=== PATIENT | female | born 1965 | race Hispanic/Latino ===

== ENCOUNTER 2022-09-03 00:20 | Emergency (ER) | payer OTHER, SELFPAY ==
--- OUTSIDE RECORDS SUMMARY | 2022-09-03 00:38 | XMS REPORT | Continuity of Care Document ---
:1965 Author Organization [facility] t Address [address] [facility]. [address] [place] [address] Care Team Providers Name Role Phone JOSE Wilson [facility] Primary Care P hysician Unavailable SOUMYA HA Attending Clinician Unavailable MICHAEL MUELLER Attending Clinician Unavailable Michael Riley Attending Clinician Evaristo Gabriel MD Attending Clinician CHERYL GIORDANO Attending Clinician Unavailable Cheryl Villanueva Attending Clinician [phone] EVARISTO GABRIEL Attending Clinician Unavailable Doctor Unassigned, [place] Attending Clinician Unavailable CHARLOTTE MURPHY Attending Clinician Unavailable Karl RAMIREZ, Mitra Campos Attending Clinician Charlotte Murphy MD Attending Clinician REBEKA AG Attending Clinician Unavailable Anni Simon Attending Clinician Soumya Stanton Attending Clinician MICHAEL MUELLER Admitting Clinician Unavailable CHARLOTTE MURPHY Admitting Clinician Unavailable Charlotte Murphy MD Admitting Clinician Payers Payer Name Policy Type Policy Number Effective Date Expiration Date S [employer] COMMERCIAL [id number] 2021 NON-CONTRACT 00:00:00 GENERIC MEDICAID TA PENDING 2021 PENDING 00:00:00 Problems Condition Condition Condition Status Onset Resolution Last Treating Co mments Source Name Details Category Date Date Treatment Clinician Date Dyslipidem Dyslipidem Disease Active 2020-05 U nivers ia ia 2-18 ity of 00:00: [place] [facility] Left arm Left arm Disease Active 2020-05 Unive rs pain pain 2-18 ity of 00:00: [place] [facility] Atypical Atypical Disease Active 2020-05 Unive rs chest pain chest pain 2-17 it y of 00:00: [place] [address] Medical Branch BMI BMI Disease Active Univers 50.0-59.9, 50.0-59.9, 7-22 it y of adult adult 00:00: [place] [address] Medical Branch Encounter Encounter Disease Active Uni vers for for 7 ity of surveillan surve[place] of [facility] contracept contracept Br anch jacqueline, jacqueline, unspecifie unspecifie d d contracept contracept alycia alycia Well woman Well woman Disease Active U nivers exam exam - ity of 00:00: [place] [facility] Essential Essential Disease Active Uni vers hypertensi hypertensi 9-28 it y of on on 00:00: [place] [facility] Breast Breast Disease Active Univers tenderness tenderness 2-02 it y [facility] female [facility] Generalize Generalize Disease Active U nivers d anxiety d anxiety 2-02 ity of disorder disorder 00:00: [place] [address] Medical Branch Encounter Encounter Disease Active Overview: Univers for for 07-07 Formattin ity of routine routine 00:00: g of this [place] [facility] gynecologi 00 note Me dical yady yady might be Branch examinatio examinatio different n n from the original. ICD10 Diagnosis [employer] Allergies, Adverse Reactions, Alerts Allergy Allergy Status Severity Reaction(s) Onset Inactive Treating Comm ents Source Name Type Date Date Clinician Amoxicil Propensi Active nikki-Pot ty to 8-11 Clavulan adverse 00:00: ate - reaction 00 Oral to drug Demetrio Propensi Active 2016-05 Inhibito ty to 1-22 rs adverse 00:00: reaction 00 to drug NO KNOWN Drug Active Univers ALLERGIE Class 1-22 ity of S 00:00: [place] 00 Medical Branch No Known Propensi Active Univer s Allergie ty to 06-01 ity of s adverse 00:00: [place] reaction 00 Medical s Branch Social History Social Habit Start Date Stop Date Quantity Comments Source Exposure to 2021-09-14 2021-09-24 Not sure [facility] SARS-CoV-2 00:00:00 22:26:00 [facility] (event) Branch Alcohol intake 2021-09-24 2021-09-24 Current University of 00:00:00 00:00:00 non-drinker of [facility] alcohol Branch (finding) Tobacco use and 2012-07-07 2012-07-07 Never used Universit y of exposure 00:00:00 00:00:00 [facility] Sex [birth year] Universit y of 00:00:00 00:00:00 [facility] Smoking Status Start Date Stop Date Source Never smoker [facility] Medications Ordered Filled Start Stop Current Ordering Indication Dosage Frequency Signature Comments Components Source Medication Medication Date Date Medication? Clinician (SIG) Name Name TAKE No TABLET BID 9-22 NEEDED 00:00: 00 TAKE 1 2021-0 No TABLET BID 9-22 NEEDED 00:00: 00 TAKE 1 2021-0 No 600 TABLET BID 8-17 NEEDED 00:00: 00 TAKE 1 2021-0 No 600 TABLET BID 8-17 NEEDED 00:00: 00 TAKE 1 2021-0 No 600 TABLET BID 8-17 NEEDED 00:00: 00 Dose 2021-0 No Unknown 8-11 00:00: 00 Dose 2021-0 No Unknown 8-11 00:00: 00 Dose 2-0 No Unknown 8-11 00:00: 00 Imodium A-D 2021-0 No mg 2 mg tablet 11-29 00:00: 00 Dose 2-0 No Unknown 7 00:00: 00 Dose 2-0 No Unknown 7 00:00: 00 Imodium A-D 2021-0 No mg 2 mg tablet 11-29 00:00: 00 Dose 2-0 No Unknown 11-29 00:00: 00 Dose 2-0 No Unknown 11-29 00:00: 00 Imodium A-D 2-0 No mg 2 mg tablet 11-29 00:00: 00 Dose 2-0 No Unknown 11-29 00:00: 00 Dose 2-0 No Unknown 11-29 00:00: 00 Imodium A-D 2-0 No mg 2 mg tablet 11-29 00:00: 00 Dose 2-0 No Unknown 11-29 00:00: 00 Dose 2-0 No Unknown 11-29 00:00: 00 Ciprodex 2-0 No 4% 0.3 %-0.1 % 11-25 ear 00:00: drops,suspe 00 nsion clotrimazol 2-0 No 1% e-betametha 11-25 sone 1 00:00: %-0.05 % 00 topical cream Ciprodex 2-0 No 4% 0.3 %-0.1 % 11-25 ear 00:00: drops,suspe 00 nsion clotrimazol 2-0 No 1% e-betametha 11-25 sone 1 00:00: %-0.05 % 00 topical cream Ciprodex 2-0 No 4% 0.3 %-0.1 % 11-25 ear 00:00: drops,suspe 00 nsion clotrimazol 2-0 No 1% e-betametha 18 sone 1 00:00: %-0.05 % 00 topical cream Ciprodex 2-0 No 4% 0.3 %-0.1 % 11-25 ear 00:00: drops,suspe 00 nsion clotrimazol 2-0 No 1% e-betametha 18 sone 1 00:00: %-0.05 % 00 topical cream Ciprodex 2-0 No 4% 0.3 %-0.1 % 18 ear 00:00: drops,suspe 00 nsion clotrimazol 2-0 No 1% e-betametha 18 sone 1 00:00: %-0.05 % 00 topical cream TAKE 1 0 No [id number] TABLET 7-17 TWICE DAILY 00:00: WITH FOOD. 00 TAKE 1 2021-0 No [id number] TABLET 7-17 TWICE DAILY 00:00: WITH FOOD. 00 TAKE 1 2-0 No [id number] TABLET 7-17 TWICE DAILY 00:00: WITH FOOD. 00 TAKE 1 2021-0 No [id number] TABLET 7-17 TWICE DAILY 00:00: WITH FOOD. 00 TAKE 1 2021-0 No [id number] TABLET 7-17 TWICE DAILY 00:00: WITH FOOD. 00 TAKE 1 2-0 No 600 TABLET BID 7-05 NEEDED 00:00: 00 TAKE 1 2-0 No 600 TABLET BID 7-05 NEEDED 00:00: 00 TAKE 1 2-0 No 600 TABLET BID 7-05 NEEDED 00:00: 00 TAKE 1 2-0 No 600 TABLET BID 7-05 NEEDED 00:00: 00 TAKE 1 2-0 No 600 TABLET BID 7-05 NEEDED 00:00: 00 TAKE 1 2-0 No 600 TABLET BID 7-05 NEEDED 00:00: 00 TAKE 1 2-0 No 600 TABLET BID 7-05 NEEDED 00:00: 00 TAKE 1 2021-0 No 600 TABLET BID 7-05 NEEDED 00:00: 00 TAKE 1 2-0 No 600 TABLET BID 7-05 NEEDED 00:00: 00 TAKE 1 2-0 No 600 TABLET BID 7-05 NEEDED 00:00: 00 TAKE 1 2-0 No 600 TABLET BID 7-05 NEEDED 00:00: 00 TAKE 1 2-0 No 600 TABLET BID 7-05 NEEDED 00:00: 00 proMETHazin 2021- No 25mg 25 mg, Uni vers e 09-25 Intramuscu ity of (PHENERGAN) 09:00: 08:07 lar, ONCE, [place] injection 00 :00 1 dose, On Medi yady 25 mg Wed Branch 09/25/21 at 0400, ROZ hyoscyamine 2021- No .125mg 0.125 mg, Univers sulfate 09-25 Sublingual ity o f (LEVSIN/SL) 09:00: 08:07 , ONCE [place] as sublingual 00 :00 NOW, 1 Medical tablet dose, On Branch 0.125 mg 09/25/21 at 0400, Routine maalox:diph 2021- No 15mL 15 mL, Uni vers enhydrAMINE 5-18 -18 Oral, ity of :lidocaine 08:15: 07:45 ONCE, 1 [place] 2 % viscous 00 :00 dose, On Medi yady 1:1:1 Wed Branch (FIRST-[facility]OUT 09/25/21 at [facility]) 0315, oral Routine suspension 15 mL metoclopram 2021- No 10mg 10 mg, Uni vers sacha HCl -25 09-18 Slow IV ity of (REGLAN) 07:30: 06:35 Push, [place] injection 00 :00 ONCE, 1 Medical 10 mg dose, On Branch 09/25/21 at 0230, ROZ iopamidol 2021- No [id number] 120mL 120 mL, Univers (ISOVUE 5-25 09-18 Intravenou ity o f 370-500 mL) 07:15: 05:59 s, ONCE, 1 [place] injection 00 :00 dose, On Medica l 120 mL Wed Branch 09/25/21 at 0215, Routine FENTanyl PF No 50ug 50 mcg, Un [place] (SUBLIMAZE 09-25-18 Slow IV ity o f (PF)) 05:15: 04:51 Push, [place] injection 00 :00 ONCE, 1 Medical 50 mcg dose, On Branch 09/25/21 at 0015, STAT ondansetron 2021- No 4mg 4 mg, Slow Univers (ZOFRAN -25 09-18 IV Push, ity of (PF)) 05:15: 04:51 ONCE, 1 [place] injection 4 00 :00 dose, On Medi yady mg Wed Branch 09/25/21 at 0015, ROZ NaCl 0.9% 2021- No 1000mL at 999 Uni vers (NS) bolus -18 -18 mL/hr, ity of infusion 05:15: 08:50 1,000 mL, [place] 1,000 mL 00 :00 IV Medical Infusion, Branch ONCE, 1 dose, On 09/25/21 at 0015, ROZ dicyclomine 0 Yes [id number] 10mg Take 1 Univers 10 mg 5-18 capsule by ity of capsule 00:00: mouth 4 [place] 00 (four) Medical times Branch daily. proMETHazin 2022-0 Yes [id number] 25mg Take 1 Univers e 25 mg 5-18 tablet by ity of tablet 00:00: mouth [place] 00 every 6 Medical (six) Branch hours as needed for Nausea and Vomiting (N/V). traMADoL 50 2-0 2- No [id number] 50mg Take 1 Uni vers mg tablet 5-18 05-26 tablet by ity of 00:00: 04:59 mouth [place] 00 :00 every 6 Medical (six) Branch hours as needed for Pain (scale 7-10) for up to 7 days. Indication s: acute pain duloxetine 2-0 No 1mg 30 mg 5-14 capsule,del 00:00: ayed 00 release omeprazole 2022-0 No 1mg 40 mg 5-14 capsule,del 00:00: ayed 00 release duloxetine 2022-0 No 1mg 30 mg 5-14 capsule,del 00:00: ayed 00 release omeprazole 2022-0 No 1mg 40 mg 5-14 capsule,del 00:00: ayed 00 release duloxetine 2022-0 No 1mg 30 mg 5-14 capsule,del 00:00: ayed 00 release omeprazole 2022-0 No 1mg 40 mg 5-14 capsule,del 00:00: ayed 00 release duloxetine 2022-0 No 1mg 30 mg 5-14 capsule,del 00:00: ayed 00 release omeprazole 2022-0 No 1mg 40 mg 5-14 capsule,del 00:00: ayed 00 release duloxetine 2022-0 No 1mg 30 mg 5-14 capsule,del 00:00: ayed 00 release omeprazole 2022-0 No 1mg 40 mg 5-14 capsule,del 00:00: ayed 00 release duloxetine 2022-0 No 1mg 30 mg 5-14 capsule,del 00:00: ayed 00 release omeprazole 2022-0 No 1mg 40 mg 5-14 capsule,del 00:00: ayed 00 release metoprolol 2022-0 Yes [id number] 50mg Take 1 U nivers tartrate 50 4-01 tablet by ity of mg tablet 00:00: mouth 2 [place] 00 (two) Medical times Branch daily. metoprolol 2022-0 Yes [id number] 50mg Take 1 U nivers tartrate 50 4-01 tablet by ity of mg tablet 00:00: mouth 2 [place] 00 (two) Medical times Branch daily. Dose 2-0 No Unknown 3- 00:00: 00 Dose 2-0 No Unknown 3- 00:00: 00 Dose 2-0 No Unknown 3 00:00: 00 Dose 2-0 No Unknown 3- 00:00: 00 Dose 2-0 No Unknown 3- 00:00: 00 Dose 2-0 No Unknown 3- 00:00: 00 metoprolol 2-0 No mg tartrate 50 3-29 mg tablet 00:00: 00 Dose 2-0 No Unknown 3- 00:00: 00 Dose 2-0 No Unknown 3- 00:00: 00 Dose 2-0 No Unknown 3- 00:00: 00 Dose 2-0 No Unknown 3- 00:00: 00 Dose 2-0 No Unknown 3- 00:00: 00 Dose 2-0 No Unknown 3- 00:00: 00 Dose 2-0 No Unknown 3- 00:00: 00 Dose 2-0 No Unknown 3- 00:00: 00 Dose 2-0 No Unknown 3- 00:00: 00 metoprolol 2-0 No mg tartrate 50 3-29 mg tablet 00:00: 00 Dose 2-0 No Unknown 3- 00:00: 00 Dose 2-0 No Unknown 3- 00:00: 00 Dose 2-0 No Unknown 3- 00:00: 00 Dose 2-0 No Unknown 3- 00:00: 00 Dose 2-0 No Unknown 3- 00:00: 00 Dose 2-0 No Unknown 3- 00:00: 00 Dose 2-0 No Unknown 3- 00:00: 00 Dose 2-0 No Unknown 3- 00:00: 00 Dose 2-0 No Unknown 3- 00:00: 00 metoprolol 2-0 No mg tartrate 50 3-29 mg tablet 00:00: 00 Dose 2-0 No Unknown 3- 00:00: 00 Dose 2-0 No Unknown 3-29 00:00: 00 Dose 2-0 No Unknown 3-29 00:00: 00 Dose 2-0 No Unknown 3-29 00:00: 00 Dose 2-0 No Unknown 3- 00:00: 00 Dose 2-0 No Unknown 3- 00:00: 00 Dose 2-0 No Unknown 3- 00:00: 00 Dose 2-0 No Unknown 3- 00:00: 00 Dose 2-0 No Unknown 3- 00:00: 00 metoprolol 2-0 No mg tartrate 50 3-29 mg tablet 00:00: 00 Dose 2-0 No Unknown 3- 00:00: 00 Dose 2-0 No Unknown 3- 00:00: 00 Dose 2-0 No Unknown 3- 00:00: 00 Dose 2021-0 No Unknown 3- 00:00: 00 Dose 2-0 No Unknown 3 00:00: 00 Dose 2-0 No Unknown 3 00:00: 00 Dose 2-0 No Unknown 3 00:00: 00 Dose 2-0 No Unknown 3 00:00: 00 Dose 2-0 No Unknown 3 00:00: 00 metoprolol 2-0 No mg tartrate 50 3-29 mg tablet 00:00: 00 Dose 2-0 No Unknown 3- 00:00: 00 Dose 2-0 No Unknown 3- 00:00: 00 Dose 2-0 No Unknown 3- 00:00: 00 Dose 2-0 No Unknown 3- 00:00: 00 Dose 2-0 No Unknown 3- 00:00: 00 Dose 2-0 No Unknown 3-29 00:00: 00 Dose 2-0 No Unknown 3-29 00:00: 00 Dose 2-0 No Unknown 3-29 00:00: 00 Dose 2-0 No Unknown 3-29 00:00: 00 metoprolol 2-0 No mg tartrate 50 3-29 mg tablet 00:00: 00 Dose 2-0 No Unknown 3-29 00:00: 00 Dose 2-0 No Unknown 3-29 00:00: 00 Dose 2-0 No Unknown 3-29 00:00: 00 metoprolol 2-0 2- No 50mg Take 50 mg Univers tartrate 50 06-10 by mouth 2 i ty of mg tablet 15:26: 00:00 (two) [place] 10 :00 times Medical daily. Branch Take 1 tablet in the morning and one half in the evening ALBUTEROL 2021-0 Yes Inhale. Unive rs SULFATE 1-31 ity of INHALE 15:09: [address] Branch acetaminoph Yes Take by Uni vers en (TYLENOL 1-31 mouth. ity of ORAL) 15:09: [address] ALBUTEROL Yes Inhale. Unive rs SULFATE 1-31 ity of INHALE 15:09: [address] Branch acetaminoph Yes Take by Uni vers en (TYLENOL 1-31 mouth. ity of ORAL) 15:09: [address] ALBUTEROL Yes Inhale. Unive rs SULFATE 1-31 ity of INHALE 15:09: [address] acetaminoph Yes Take by Uni vers en (TYLENOL 1-31 mouth. ity of ORAL) 15:09: [address] ALBUTEROL 0 Yes Inhale. Unive rs SULFATE 1-31 ity of INHALE 15:09: [address] acetaminoph Yes Take by Uni vers en (TYLENOL 1-31 mouth. ity of ORAL) 15:09: [address] omeprazole 2021-0 Yes 40mg Take 40 mg U nivers 10 mg 1-31 by mouth ity of capsule 15:06: daily. [address] omeprazole 2021-0 Yes 40mg Take 40 mg U nivers 10 mg 1-31 by mouth ity of capsule 15:06: daily. [address] omeprazole 2021-0 Yes 40mg Take 40 mg U nivers 10 mg 1-31 by mouth ity of capsule 15:06: daily. [address] omeprazole 2021-0 Yes 40mg Take 40 mg U nivers 10 mg 1-31 by mouth ity of capsule 15:06: daily. [address] metoprolol 2021-0 Yes [id number] 50mg Take 1 U nivers tartrate 50 1-31 tablet by ity of mg tablet 00:00: mouth 2 [place] 00 (two) Medical times Branch daily. metoprolol 2021-0 Yes [id number] 50mg Take 1 U nivers tartrate 50 1-31 tablet by ity of mg tablet 00:00: mouth 2 [place] 00 (two) Medical times Branch daily. metoprolol 2021-0 2021- No [id number] 50mg Take 1 Univers tartrate 50 1-31 - tablet by it y of mg tablet 00:00: 00:00 mouth 2 [place] :[place] (two) Medical times Branch daily. oxybutynin 2-0 No 1mg chloride 5 1-24 mg tablet 00:00: 00 Dose 2-0 No Unknown 1-24 00:00: 00 oxybutynin 2-0 No 1mg chloride 5 1-24 mg tablet 00:00: 00 Dose 2-0 No Unknown 1-24 00:00: 00 oxybutynin 2-0 No 1mg chloride 5 1-24 mg tablet 00:00: 00 Dose 2-0 No Unknown 1-24 00:00: 00 oxybutynin 2-0 No 1mg chloride 5 1-24 mg tablet 00:00: 00 Dose 2-0 No Unknown 1-24 00:00: 00 oxybutynin 2-0 No 1mg chloride 5 1-24 mg tablet 00:00: 00 Dose 2-0 No Unknown 1-24 00:00: 00 oxybutynin 2-0 No 1mg chloride 5 1-24 mg tablet 00:00: 00 Dose 2-0 No Unknown 1-24 00:00: 00 metoprolol 2020-1 No mg tartrate 50 0-29 mg tablet 00:00: 00 cyclobenzap 2020-1 No 1mg rine 7.5 mg 0-29 tablet 00:00: 00 TAKE 1 2020-1 No TABLET BID 0-29 NEEDED 00:00: 00 metoprolol 2020-1 No mg tartrate 50 0-29 mg tablet 00:00: 00 cyclobenzap 2020-1 No 1mg rine 7.5 mg 0-29 tablet 00:00: 00 ibuprofen 2020-1 No 1mg 800 mg 0-29 tablet 00:00: 00 metoprolol 2020-1 No mg tartrate 50 0-29 mg tablet 00:00: 00 cyclobenzap 2020-1 No 1mg rine 7.5 mg 0-29 tablet 00:00: 00 TAKE 1 2020-1 No TABLET BID 0-29 NEEDED 00:00: 00 metoprolol 1-1 No mg tartrate 50 0-29 mg tablet 00:00: 00 cyclobenzap 1-1 No 1mg rine 7.5 mg 0-29 tablet 00:00: 00 ibuprofen 2021-1 No 1mg 800 mg 0-29 tablet 00:00: 00 metoprolol 2021-1 No mg tartrate 50 0-29 mg tablet 00:00: 00 cyclobenzap 1-1 No 1mg rine 7.5 mg 0-29 tablet 00:00: 00 ibuprofen 2021-1 No 1mg 800 mg 0-29 tablet 00:00: 00 metoprolol 1-1 No mg tartrate 50 0-29 mg tablet 00:00: 00 cyclobenzap 1-1 No 1mg rine 7.5 mg 0-29 tablet 00:00: 00 ibuprofen 1-1 No 1mg 800 mg 0-29 tablet 00:00: 00 Dose 2021-0 No Unknown 01-31 00:00: 00 Dose 2021-0 No Unknown 01-31 00:00: 00 Dose 2021-0 No Unknown 01-31 00:00: 00 Dose 2021-0 No Unknown 01-31 00:00: 00 Dose 2021-0 No Unknown 01-31 00:00: 00 Dose 2021-0 No Unknown 01-31 00:00: 00 ondansetron 1-0 No 1mg 4 mg 01-10 disintegrat 00:00: ing tablet 00 ondansetron 1-0 No 1mg 4 mg 01-10 disintegrat 00:00: ing tablet Dexilant 60 1-0 No 1mg mg capsule, 01-10 delayed 00:00: release 00 Dexilant 60 1-0 No 1mg mg capsule, 01-10 delayed 00:00: release 00 ondansetron 1-0 No 1mg 4 mg 01-10 disintegrat 00:00: ing tablet Dexilant 60 1-0 No 1mg mg capsule, 01-10 delayed 00:00: release 00 ondansetron 1-0 No 1mg 4 mg 01-10 disintegrat 00:00: ing tablet Dexilant 60 1-0 No 1mg mg capsule, 01-10 delayed 00:00: release 00 ondansetron 1-0 No 1mg 4 mg 01-10 disintegrat 00:00: ing tablet 00 Dexilant 60 1-0 No 1mg mg capsule, 01-10 delayed 00:00: release ondansetron 1-0 No 1mg 4 mg 01-10 disintegrat 00:00: ing tablet 00 Dexilant 60 1-0 No 1mg mg capsule, 01-10 delayed 00:00: release 00 Bromfed DM 2021-0 No 10mg/5 2 mg-30 8-16 mL mg-10 mg/5 00:00: mL oral 00 syrup Bromfed DM 2021-0 No 10mg/5 2 mg-30 8-16 mL mg-10 mg/5 00:00: mL oral 00 syrup Dose 1-0 No Unknown 8-16 00:00: 00 Bromfed DM 2021-0 No 10mg/5 2 mg-30 8-16 mL mg-10 mg/5 00:00: mL oral 00 syrup Bromfed DM 2021-0 No 10mg/5 2 mg-30 8-16 mL mg-10 mg/5 00:00: mL oral 00 syrup Bromfed DM 2021-0 No 10mg/5 2 mg-30 8-16 mL mg-10 mg/5 00:00: mL oral 00 syrup ondansetron 1-0 No 1mg 4 mg 7-14 disintegrat 00:00: ing tablet 00 ondansetron 1-0 No 1mg 4 mg 7-14 disintegrat 00:00: ing tablet 00 ondansetron 1-0 No 1mg 4 mg 7-14 disintegrat 00:00: ing tablet 00 ondansetron 1-0 No 1mg 4 mg 7-14 disintegrat 00:00: ing tablet 00 ondansetron 1-0 No 1mg 4 mg 7-14 disintegrat 00:00: ing tablet 00 ondansetron 1-0 No 1mg 4 mg 7-14 disintegrat 00:00: ing tablet 00 metoprolol 2021-0 No mg tartrate 50 6-22 mg tablet 00:00: 00 metoprolol 2021-0 No mg tartrate 50 6-22 mg tablet 00:00: 00 metoprolol 2021-0 No mg tartrate 50 6-22 mg tablet 00:00: 00 metoprolol 2021-0 No mg tartrate 50 6-22 mg tablet 00:00: 00 metoprolol 2021-0 No mg tartrate 50 6-22 mg tablet 00:00: 00 metoprolol 2021-0 No mg tartrate 50 6-22 mg tablet 00:00: 00 metoprolol 2021-0 No mg tartrate 50 5-25 mg tablet 00:00: 00 metoprolol 2021-0 No mg tartrate 50 5-25 mg tablet 00:00: 00 metoprolol 2021-0 No mg tartrate 50 5-25 mg tablet 00:00: 00 metoprolol 2021-0 No mg tartrate 50 5-25 mg tablet 00:00: 00 metoprolol 2021-0 No mg tartrate 50 5-25 mg tablet 00:00: 00 metoprolol 2021-0 No mg tartrate 50 5-25 mg tablet 00:00: 00 metoprolol 2021-0 No mg tartrate 50 3-24 mg tablet 00:00: 00 Dexilant 60 2021-0 No 1mg mg capsule, 3-24 delayed 00:00: release 00 metoprolol 2021-0 No mg tartrate 50 3-24 mg tablet 00:00: 00 Dexilant 60 2021-0 No 1mg mg capsule, 3-24 delayed 00:00: release 00 metoprolol 2021-0 No mg tartrate 50 3-24 mg tablet 00:00: 00 Dexilant 60 2021-0 No 1mg mg capsule, 3-24 delayed 00:00: release 00 metoprolol 2021-0 No mg tartrate 50 3-24 mg tablet 00:00: 00 Dexilant 60 2021-0 No 1mg mg capsule, 3-24 delayed 00:00: release 00 metoprolol 2021-0 No mg tartrate 50 3-24 mg tablet 00:00: 00 Dexilant 60 2021-0 No 1mg mg capsule, 3-24 delayed 00:00: release 00 metoprolol 2021-0 No mg tartrate 50 3-24 mg tablet 00:00: 00 Dexilant 60 2021-0 No 1mg mg capsule, 3-24 delayed 00:00: release 00 metoprolol 2021-0 No mg tartrate 50 2-18 mg tablet 00:00: 00 metoprolol 2021-0 No mg tartrate 50 2-18 mg tablet 00:00: 00 dicyclomine 2021-0 No 1mg 20 mg 2-18 tablet 00:00: 00 omeprazole 2021-0 No 1mg 40 mg 2-18 capsule,del 00:00: ayed 00 release metoprolol 2021-0 No mg tartrate 50 2-18 mg tablet 00:00: 00 metoprolol 2021-0 No mg tartrate 50 2-18 mg tablet 00:00: 00 dicyclomine 2021-0 No 1mg 20 mg 2-18 tablet 00:00: 00 omeprazole 2021-0 No 1mg 40 mg 2-18 capsule,del 00:00: ayed 00 release metoprolol 2021-0 No mg tartrate 50 2-18 mg tablet 00:00: 00 metoprolol 2021-0 No mg tartrate 50 2-18 mg tablet 00:00: 00 dicyclomine 2021-0 No 1mg 20 mg 2-18 tablet 00:00: 00 omeprazole 2021-0 No 1mg 40 mg 2-18 capsule,del 00:00: ayed 00 release metoprolol 2021-0 No mg tartrate 50 2-18 mg tablet 00:00: 00 metoprolol 2021-0 No mg tartrate 50 2-18 mg tablet 00:00: 00 dicyclomine 2021-0 No 1mg 20 mg 2-18 tablet 00:00: 00 omeprazole 2021-0 No 1mg 40 mg 2-18 capsule,del 00:00: ayed 00 release metoprolol 2021-0 No mg tartrate 50 2-18 mg tablet 00:00: 00 metoprolol 2021-0 No mg tartrate 50 2-18 mg tablet 00:00: 00 dicyclomine 2021-0 No 1mg 20 mg 2-18 tablet 00:00: 00 omeprazole 2021-0 No 1mg 40 mg 2-18 capsule,del 00:00: ayed 00 release metoprolol 2021-0 No mg tartrate 50 2-18 mg tablet 00:00: 00 metoprolol 2021-0 No mg tartrate 50 2-18 mg tablet 00:00: 00 dicyclomine 2021-0 No 1mg 20 mg 2-18 tablet 00:00: 00 omeprazole 2021-0 No 1mg 40 mg 2-18 capsule,del 00:00: ayed 00 release metoprolol 2021-0 No mg tartrate 50 1-14 mg tablet 00:00: 00 metoprolol 2021-0 No mg tartrate 50 1-14 mg tablet 00:00: 00 metoprolol 2021-0 No mg tartrate 50 1-14 mg tablet 00:00: 00 metoprolol 2021-0 No mg tartrate 50 1-14 mg tablet 00:00: 00 metoprolol 2021-0 No mg tartrate 50 1-14 mg tablet 00:00: 00 metoprolol 2021-0 No mg tartrate 50 1-14 mg tablet 00:00: 00 omeprazole 2020-1 No 1mg 40 mg 2-30 capsule,del 00:00: ayed 00 release omeprazole 2020-1 No 1mg 40 mg 2-30 capsule,del 00:00: ayed 00 release omeprazole 2020-1 No 1mg 40 mg 2-30 capsule,del 00:00: ayed 00 release omeprazole 2020-1 No 1mg 40 mg 2-30 capsule,del 00:00: ayed 00 release omeprazole 2020-1 No 1mg 40 mg 2-30 capsule,del 00:00: ayed 00 release omeprazole 2020-1 No 1mg 40 mg 2-30 capsule,del 00:00: ayed 00 release duloxetine 2020-1 No 1mg 30 mg 2-14 capsule,del 00:00: ayed 00 release duloxetine 2020-1 No 1mg 30 mg 2-14 capsule,del 00:00: ayed 00 release duloxetine 2020-1 No 1mg 30 mg 2-14 capsule,del 00:00: ayed 00 release duloxetine 2020-1 No 1mg 30 mg 2-14 capsule,del 00:00: ayed 00 release duloxetine 2020-1 No 1mg 30 mg 2-14 capsule,del 00:00: ayed 00 release duloxetine 2020-1 No 1mg 30 mg 2-14 capsule,del 00:00: ayed 00 release metoprolol 2020-1 No mg tartrate 50 0-14 mg tablet 00:00: 00 nystatin 2020-1 No 5unit/m 100,000 0-14 L unit/mL 00:00: oral 00 suspension metoprolol 2020-1 No mg tartrate 50 0-14 mg tablet 00:00: 00 nystatin 2020-1 No 5unit/m 100,000 0-14 L unit/mL 00:00: oral 00 suspension metoprolol 2020-1 No mg tartrate 50 0-14 mg tablet 00:00: 00 nystatin 2020-1 No 5unit/m 100,000 0-14 L unit/mL 00:00: oral 00 suspension metoprolol 2020-1 No mg tartrate 50 0-14 mg tablet 00:00: 00 nystatin 2020-1 No 5unit/m 100,000 0-14 L unit/mL 00:00: oral 00 suspension metoprolol 2020-1 No mg tartrate 50 0-14 mg tablet 00:00: 00 nystatin 2020-1 No 5unit/m 100,000 0-14 L unit/mL 00:00: oral 00 suspension metoprolol 2020-1 No mg tartrate 50 0-14 mg tablet 00:00: 00 nystatin 2020-1 No 5unit/m 100,000 0-14 L unit/mL 00:00: oral 00 suspension clindamycin 2020-0 No 1mg HCl 300 mg 9-21 capsule 00:00: 00 clindamycin 2020-0 No 1mg HCl 300 mg 9-21 capsule 00:00: 00 clindamycin 2020-0 No 1mg HCl 300 mg 9-21 capsule 00:00: 00 clindamycin 2020-0 No 1mg HCl 300 mg 9-21 capsule 00:00: 00 clindamycin 2020-0 No 1mg HCl 300 mg 9-21 capsule 00:00: 00 clindamycin 2020-0 No 1mg HCl 300 mg 9-21 capsule 00:00: 00 nystatin 2020-0 No 5unit/m 100,000 9-18 L unit/mL 00:00: oral 00 suspension nystatin 2020-0 No 5unit/m 100,000 9-18 L unit/mL 00:00: oral 00 suspension nystatin 2020-0 No 5unit/m 100,000 9-18 L unit/mL 00:00: oral 00 suspension nystatin 2020-0 No 5unit/m 100,000 9-18 L unit/mL 00:00: oral 00 suspension nystatin 2020-0 No 5unit/m 100,000 9-18 L unit/mL 00:00: oral 00 suspension nystatin 2020-0 No 5unit/m 100,000 9-18 L unit/mL 00:00: oral 00 suspension Augmentin 2020-0 No 1mg 875 mg-125 9-01 mg tablet 00:00: 00 Augmentin 2020-0 No 1mg 875 mg-125 9-01 mg tablet 00:00: 00 Augmentin 2020-0 No 1mg 875 mg-125 9-01 mg tablet 00:00: 00 Augmentin 2020-0 No 1mg 875 mg-125 9-01 mg tablet 00:00: 00 Augmentin 2020-0 No 1mg 875 mg-125 9-01 mg tablet 00:00: 00 Augmentin 2020-0 No 1mg 875 mg-125 9-01 mg tablet 00:00: 00 metoprolol 2020-0 No mg tartrate 50 8-25 mg tablet 00:00: 00 metoprolol 2020-0 No mg tartrate 50 8-25 mg tablet 00:00: 00 metoprolol 2020-0 No mg tartrate 50 8-25 mg tablet 00:00: 00 metoprolol 2020-0 No mg tartrate 50 8-25 mg tablet 00:00: 00 metoprolol 2020-0 No mg tartrate 50 8-25 mg tablet 00:00: 00 metoprolol 2020-0 No mg tartrate 50 8-25 mg tablet 00:00: 00 prednisone 2020-0 No 1mg 50 mg 8-05 tablet 00:00: 00 omeprazole 2020-0 No 1mg 40 mg 8-05 capsule,del 00:00: ayed 00 release ProAir HFA 2020-0 No 2mcg/ac 90 8-05 tuation mcg/actuati 00:00: on aerosol 00 inhaler prednisone 2020-0 No 1mg 50 mg 8-05 tablet 00:00: 00 omeprazole 2020-0 No 1mg 40 mg 8-05 capsule,del 00:00: ayed 00 release ProAir HFA 2020-0 No 2mcg/ac 90 8-05 tuation mcg/actuati 00:00: on aerosol 00 inhaler prednisone 2020-0 No 1mg 50 mg 8-05 tablet 00:00: 00 omeprazole 2020-0 No 1mg 40 mg 8-05 capsule,del 00:00: ayed 00 release ProAir HFA 2020-0 No 2mcg/ac 90 8-05 tuation mcg/actuati 00:00: on aerosol 00 inhaler prednisone 2020-0 No 1mg 50 mg 8-05 tablet 00:00: 00 omeprazole 2020-0 No 1mg 40 mg 8-05 capsule,del 00:00: ayed 00 release ProAir HFA 2020-0 No 2mcg/ac 90 8-05 tuation mcg/actuati 00:00: on aerosol 00 inhaler prednisone 2020-0 No 1mg 50 mg 8-05 tablet 00:00: 00 omeprazole 2020-0 No 1mg 40 mg 8-05 capsule,del 00:00: ayed 00 release ProAir HFA 2020-0 No 2mcg/ac 90 8-05 tuation mcg/actuati 00:00: on aerosol 00 inhaler prednisone 2020-0 No 1mg 50 mg 8-05 tablet 00:00: 00 omeprazole 2020-0 No 1mg 40 mg 8-05 capsule,del 00:00: ayed 00 release ProAir HFA 2020-0 No 2mcg/ac 90 8-05 tuation mcg/actuati 00:00: on aerosol 00 inhaler loratadine 2020-0 No 1mg 10 mg 4-30 tablet 00:00: 00 amoxicillin 2020-0 No 1mg 875 mg 4-30 tablet 00:00: 00 loratadine 2020-0 No 1mg 10 mg 4-30 tablet 00:00: 00 amoxicillin 2020-0 No 1mg 875 mg 4-30 tablet 00:00: 00 loratadine 2020-0 No 1mg 10 mg 4-30 tablet 00:00: 00 amoxicillin 2020-0 No 1mg 875 mg 4-30 tablet 00:00: 00 loratadine 2020-0 No 1mg 10 mg 4-30 tablet 00:00: 00 amoxicillin 2020-0 No 1mg 875 mg 4-30 tablet 00:00: 00 loratadine 2020-0 No 1mg 10 mg 4-30 tablet 00:00: 00 amoxicillin 2020-0 No 1mg 875 mg 4-30 tablet 00:00: 00 loratadine 2020-0 No 1mg 10 mg 4-30 tablet 00:00: 00 amoxicillin 2020-0 No 1mg 875 mg 4-30 tablet 00:00: 00 prednisone 2020-0 No 1mg 50 mg 3-02 tablet 00:00: 00 prednisone 2020-0 No 1mg 50 mg 3-02 tablet 00:00: 00 prednisone 2020-0 No 1mg 50 mg 3-02 tablet 00:00: 00 prednisone 2020-0 No 1mg 50 mg 3-02 tablet 00:00: 00 prednisone 2020-0 No 1mg 50 mg 3-02 tablet 00:00: 00 prednisone 2020-0 No 1mg 50 mg 3-02 tablet 00:00: 00 ProAir HFA 2020-0 No 2mcg/ac 90 2-26 tuation mcg/actuati 00:00: on aerosol 00 inhaler metoprolol 2020-0 No mg tartrate 50 2-26 mg tablet 00:00: 00 omeprazole 2020-0 No 1mg 40 mg 2-26 capsule,del 00:00: ayed 00 release Tessalon 2020-0 No 12mg Perles 100 2-26 mg capsule 00:00: 00 ProAir HFA 2020-0 No 2mcg/ac 90 2-26 tuation mcg/actuati 00:00: on aerosol 00 inhaler metoprolol 2020-0 No mg tartrate 50 2-26 mg tablet 00:00: 00 omeprazole 2020-0 No 1mg 40 mg 2-26 capsule,del 00:00: ayed 00 release Tessalon 2020-0 No 12mg Perles 100 2-26 mg capsule 00:00: 00 ProAir HFA 2020-0 No 2mcg/ac 90 2-26 tuation mcg/actuati 00:00: on aerosol 00 inhaler metoprolol 2020-0 No mg tartrate 50 2-26 mg tablet 00:00: 00 omeprazole 2020-0 No 1mg 40 mg 2-26 capsule,del 00:00: ayed 00 release Tessalon 2020-0 No 12mg Perles 100 2-26 mg capsule 00:00: 00 ProAir HFA 2020-0 No 2mcg/ac 90 2-26 tuation mcg/actuati 00:00: on aerosol 00 inhaler metoprolol 2020-0 No mg tartrate 50 2-26 mg tablet 00:00: 00 omeprazole 2020-0 No 1mg 40 mg 2-26 capsule,del 00:00: ayed 00 release Tessalon 2020-0 No 12mg Perles 100 2-26 mg capsule 00:00: 00 ProAir HFA 2020-0 No 2mcg/ac 90 2-26 tuation mcg/actuati 00:00: on aerosol 00 inhaler metoprolol 2020-0 No mg tartrate 50 2-26 mg tablet 00:00: 00 omeprazole 2020-0 No 1mg 40 mg 2-26 capsule,del 00:00: ayed 00 release Tessalon 2020-0 No 12mg Perles 100 2-26 mg capsule 00:00: 00 ProAir HFA 2020-0 No 2mcg/ac 90 2-26 tuation mcg/actuati 00:00: on aerosol 00 inhaler metoprolol 2020-0 No mg tartrate 50 2-26 mg tablet 00:00: 00 omeprazole 2020-0 No 1mg 40 mg 2-26 capsule,del 00:00: ayed 00 release Tessalon 2020-0 No 12mg Perles 100 2-26 mg capsule 00:00: 00 metoprolol 2020-0 No mg tartrate 50 1-22 mg tablet 00:00: 00 metoprolol 2020-0 No mg tartrate 50 1-22 mg tablet 00:00: 00 metoprolol 2020-0 No mg tartrate 50 1-22 mg tablet 00:00: 00 metoprolol 2020-0 No mg tartrate 50 1-22 mg tablet 00:00: 00 metoprolol 2020-0 No mg tartrate 50 1-22 mg tablet 00:00: 00 metoprolol 2020-0 No mg tartrate 50 1-22 mg tablet 00:00: 00 metoprolol 2019-1 No mg tartrate 50 2-07 mg tablet 00:00: 00 metoprolol 2019-1 No mg tartrate 50 2-07 mg tablet 00:00: 00 metoprolol 2019-1 No mg tartrate 50 2-07 mg tablet 00:00: 00 metoprolol 2019-1 No mg tartrate 50 2-07 mg tablet 00:00: 00 metoprolol 2019-1 No mg tartrate 50 2-07 mg tablet 00:00: 00 metoprolol 2019-1 No mg tartrate 50 2-07 mg tablet 00:00: 00 metoprolol 2019-1 No mg tartrate 50 0-30 mg tablet 00:00: 00 metoprolol 2019-1 No mg tartrate 50 0-30 mg tablet 00:00: 00 metoprolol 2019-1 No mg tartrate 50 0-30 mg tablet 00:00: 00 metoprolol 2019-1 No mg tartrate 50 0-30 mg tablet 00:00: 00 metoprolol 2019-1 No mg tartrate 50 0-30 mg tablet 00:00: 00 metoprolol 2019-1 No mg tartrate 50 0-30 mg tablet 00:00: [facility] No 1% ne 0-29 acetonide 00:00: 0.1 % 00 topical cream metoprolol 2018-1 No 1mg tartrate 50 0-29 mg tablet 00:00: 00 prednisone 2018-1 No mg 20 mg 0-29 tablet 00:00: [facility] 2018-1 No 1% ne 0-29 acetonide 00:00: 0.1 % 00 topical cream metoprolol 2018-1 No 1mg tartrate 50 0-29 mg tablet 00:00: 00 prednisone 2018-1 No mg 20 mg 0-29 tablet 00:00: [facility] 2018-1 No 1% ne 0-29 acetonide 00:00: 0.1 % 00 topical cream metoprolol 2018-1 No 1mg tartrate 50 0-29 mg tablet 00:00: 00 prednisone 2018-1 No mg 20 mg 0-29 tablet 00:00: 00 [facility] 2018-1 No 1% ne 0-29 acetonide 00:00: 0.1 % 00 topical cream metoprolol 2018-1 No 1mg tartrate 50 0-29 mg tablet 00:00: 00 prednisone 2018-1 No mg 20 mg 0-29 tablet 00:00: 00 [facility] 2018-1 No 1% ne 0-29 acetonide 00:00: 0.1 % 00 topical cream metoprolol 2018-1 No 1mg tartrate 50 0-29 mg tablet 00:00: 00 prednisone 2019-1 No mg 20 mg 0-29 tablet 00:00: 00 [facility] 2018-1 No 1% ne 0-29 acetonide 00:00: 0.1 % 00 topical cream metoprolol 2018-1 No 1mg tartrate 50 0-29 mg tablet 00:00: 00 prednisone 2019-1 No mg 20 mg 0-29 tablet 00:00: 00 metoprolol 2019-0 No 1mg tartrate 50 9-10 mg tablet 00:00: 00 metoprolol 2019-0 No 1mg tartrate 50 9-10 mg tablet 00:00: 00 metoprolol 2019-0 No 1mg tartrate 50 9-10 mg tablet 00:00: 00 metoprolol 2019-0 No 1mg tartrate 50 9-10 mg tablet 00:00: 00 metoprolol 2019-0 No 1mg tartrate 50 9-10 mg tablet 00:00: 00 metoprolol 2019-0 No 1mg tartrate 50 9-10 mg tablet 00:00: 00 metoprolol 2019-0 No 1mg tartrate 50 6-03 mg tablet 00:00: 00 ranitidine 2019-0 No 1mg 150 mg 6-03 capsule 00:00: 00 metoprolol 2019-0 No 1mg tartrate 50 6-03 mg tablet 00:00: 00 ranitidine 2019-0 No 1mg 150 mg 6-03 capsule 00:00: 00 metoprolol 2019-0 No 1mg tartrate 50 6-03 mg tablet 00:00: 00 ranitidine 2019-0 No 1mg 150 mg 6-03 capsule 00:00: 00 metoprolol 2019-0 No 1mg tartrate 50 6-03 mg tablet 00:00: 00 ranitidine 2019-0 No 1mg 150 mg 6-03 capsule 00:00: 00 metoprolol 2019-0 No 1mg tartrate 50 6-03 mg tablet 00:00: 00 ranitidine 2019-0 No 1mg 150 mg 6-03 capsule 00:00: 00 metoprolol 2019-0 No 1mg tartrate 50 6-03 mg tablet 00:00: 00 ranitidine 2019-0 No 1mg 150 mg 6-03 capsule 00:00: 00 ranitidine 2019-0 No 1mg 150 mg 5-02 capsule 00:00: 00 ranitidine 2019-0 No 1mg 150 mg 5-02 capsule 00:00: 00 ranitidine 2019-0 No 1mg 150 mg 5-02 capsule 00:00: 00 ranitidine 2019-0 No 1mg 150 mg 5-02 capsule 00:00: 00 ranitidine 2019-0 No 1mg 150 mg 5-02 capsule 00:00: 00 ranitidine 2019-0 No 1mg 150 mg 5-02 capsule 00:00: 00 metoprolol 2019-0 No 1mg tartrate 50 2-16 mg tablet 00:00: 00 metoprolol 2019-0 No 1mg tartrate 50 2-16 mg tablet 00:00: 00 metoprolol 2019-0 No 1mg tartrate 50 2-16 mg tablet 00:00: 00 metoprolol 2019-0 No 1mg tartrate 50 2-16 mg tablet 00:00: 00 metoprolol 2019-0 No 1mg tartrate 50 2-16 mg tablet 00:00: 00 metoprolol 2019-0 No 1mg tartrate 50 2-16 mg tablet 00:00: 00 amoxicillin 2019-0 No 1mg 875 mg 2-15 tablet 00:00: 00 amoxicillin 2019-0 No 1mg 875 mg 2-15 tablet 00:00: 00 amoxicillin 2019-0 No 1mg 875 mg 2-15 tablet 00:00: 00 amoxicillin 2019-0 No 1mg 875 mg 2-15 tablet 00:00: 00 amoxicillin 2019-0 No 1mg 875 mg 2-15 tablet 00:00: 00 amoxicillin 2019-0 No 1mg 875 mg 2-15 tablet 00:00: 00 ranitidine 2019-0 No 1mg 150 mg 2-07 capsule 00:00: 00 ranitidine 2019-0 No 1mg 150 mg 2-07 capsule 00:00: 00 ranitidine 2019-0 No 1mg 150 mg 2-07 capsule 00:00: 00 ranitidine 2019-0 No 1mg 150 mg 2-07 capsule 00:00: 00 ranitidine 2019-0 No 1mg 150 mg 2-07 capsule 00:00: 00 ranitidine 2019-0 No 1mg 150 mg 2-07 capsule 00:00: 00 metoprolol 2018-1 No 1mg tartrate 50 2-05 mg tablet 00:00: 00 metoprolol 2018-1 No 1mg tartrate 50 2-05 mg tablet 00:00: 00 metoprolol 2018-1 No 1mg tartrate 50 2-05 mg tablet 00:00: 00 metoprolol 2018-1 No 1mg tartrate 50 2-05 mg tablet 00:00: 00 metoprolol 2018-1 No 1mg tartrate 50 2-05 mg tablet 00:00: 00 metoprolol 2018-1 No 1mg tartrate 50 2-05 mg tablet 00:00: 00 metoprolol 2018-0 No 1mg tartrate 50 9-05 mg tablet 00:00: 00 metoprolol 2018-0 No 1mg tartrate 50 9-05 mg tablet 00:00: 00 metoprolol 2018-0 No 1mg tartrate 50 9-05 mg tablet 00:00: 00 metoprolol 2018-0 No 1mg tartrate 50 9-05 mg tablet 00:00: 00 metoprolol 2018-0 No 1mg tartrate 50 9-05 mg tablet 00:00: 00 metoprolol 2018-0 No 1mg tartrate 50 9-05 mg tablet 00:00: 00 hydrochloro 2018-0 No 1mg thiazide 8-02 12.5 mg 00:00: tablet 00 metoprolol 2018-0 No 1mg tartrate 50 8-02 mg tablet 00:00: 00 hydrochloro 2018-0 No 1mg thiazide 8-02 12.5 mg 00:00: tablet 00 metoprolol 2018-0 No 1mg tartrate 50 8-02 mg tablet 00:00: 00 hydrochloro 2018-0 No 1mg thiazide 8-02 12.5 mg 00:00: tablet 00 metoprolol 2018-0 No 1mg tartrate 50 8-02 mg tablet 00:00: 00 hydrochloro 2018-0 No 1mg thiazide 8-02 12.5 mg 00:00: tablet 00 metoprolol 2018-0 No 1mg tartrate 50 8-02 mg tablet 00:00: 00 hydrochloro 2018-0 No 1mg thiazide 8-02 12.5 mg 00:00: tablet 00 metoprolol 2018-0 No 1mg tartrate 50 8-02 mg tablet 00:00: 00 hydrochloro 2018-0 No 1mg thiazide 8-02 12.5 mg 00:00: tablet 00 metoprolol 2018-0 No 1mg tartrate 50 8-02 mg tablet 00:00: 00 hydrochloro 2018-0 No 1mg thiazide 6-18 12.5 mg 00:00: tablet 00 metoprolol 2018-0 No 1mg tartrate 50 6-18 mg tablet 00:00: 00 cyclobenzap 2018-0 No 1mg rine 5 mg 6-18 tablet 00:00: 00 hydrochloro 2018-0 No 1mg thiazide 6-18 12.5 mg 00:00: tablet 00 metoprolol 2018-0 No 1mg tartrate 50 6-18 mg tablet 00:00: 00 cyclobenzap 2018-0 No 1mg rine 5 mg 6-18 tablet 00:00: 00 hydrochloro 2018-0 No 1mg thiazide 6-18 12.5 mg 00:00: tablet 00 metoprolol 2018-0 No 1mg tartrate 50 6-18 mg tablet 00:00: 00 cyclobenzap 2018-0 No 1mg rine 5 mg 6-18 tablet 00:00: 00 hydrochloro 2018-0 No 1mg thiazide 6-18 12.5 mg 00:00: tablet 00 metoprolol 2018-0 No 1mg tartrate 50 6-18 mg tablet 00:00: 00 cyclobenzap 2018-0 No 1mg rine 5 mg 6-18 tablet 00:00: 00 hydrochloro 2018-0 No 1mg thiazide 6-18 12.5 mg 00:00: tablet 00 metoprolol 2018-0 No 1mg tartrate 50 6-18 mg tablet 00:00: 00 cyclobenzap 2018-0 No 1mg rine 5 mg 6-18 tablet 00:00: 00 hydrochloro 2018-0 No 1mg thiazide 6-18 12.5 mg 00:00: tablet 00 metoprolol 2018-0 No 1mg tartrate 50 6-18 mg tablet 00:00: 00 cyclobenzap 2018-0 No 1mg rine 5 mg 6-18 tablet 00:00: 00 metoprolol 2018-0 No 1mg tartrate 50 5-30 mg tablet 00:00: 00 metoprolol 2018-0 No 1mg tartrate 50 5-30 mg tablet 00:00: 00 metoprolol 2018-0 No 1mg tartrate 50 5-30 mg tablet 00:00: 00 metoprolol 2018-0 No 1mg tartrate 50 5-30 mg tablet 00:00: 00 metoprolol 2018-0 No 1mg tartrate 50 5-30 mg tablet 00:00: 00 metoprolol 2018-0 No 1mg tartrate 50 5-30 mg tablet 00:00: 00 metoprolol 2018-0 No 1mg tartrate 50 4-02 mg tablet 00:00: 00 ranitidine 2018-0 No 1mg 150 mg 4-02 capsule 00:00: 00 metoprolol 2018-0 No 1mg tartrate 50 4-02 mg tablet 00:00: 00 ranitidine 2018-0 No 1mg 150 mg 4-02 capsule 00:00: 00 metoprolol 2018-0 No 1mg tartrate 50 4-02 mg tablet 00:00: 00 ranitidine 2018-0 No 1mg 150 mg 4-02 capsule 00:00: 00 metoprolol 2018-0 No 1mg tartrate 50 4-02 mg tablet 00:00: 00 ranitidine 2018-0 No 1mg 150 mg 4-02 capsule 00:00: 00 metoprolol 2018-0 No 1mg tartrate 50 4-02 mg tablet 00:00: 00 ranitidine 2018-0 No 1mg 150 mg 4-02 capsule 00:00: 00 metoprolol 2018-0 No 1mg tartrate 50 4-02 mg tablet 00:00: 00 ranitidine 2018-0 No 1mg 150 mg 4-02 capsule 00:00: 00 metoprolol 2018-0 No 1mg tartrate 50 2-20 mg tablet 00:00: 00 ranitidine 2018-0 No 1mg 150 mg 2-20 capsule 00:00: 00 ranitidine 2018-0 No 1mg 150 mg 2-20 capsule 00:00: 00 metoprolol 2018-0 No 1mg tartrate 50 2-20 mg tablet 00:00: 00 ranitidine 2018-0 No 1mg 150 mg 2-20 capsule 00:00: 00 ranitidine 2018-0 No 1mg 150 mg 2-20 capsule 00:00: 00 metoprolol 2018-0 No 1mg tartrate 50 2-20 mg tablet 00:00: 00 ranitidine 2018-0 No 1mg 150 mg 2-20 capsule 00:00: 00 ranitidine 2018-0 No 1mg 150 mg 2-20 capsule 00:00: 00 metoprolol 2018-0 No 1mg tartrate 50 2-20 mg tablet 00:00: 00 ranitidine 2018-0 No 1mg 150 mg 2-20 capsule 00:00: 00 ranitidine 2018-0 No 1mg 150 mg 2-20 capsule 00:00: 00 metoprolol 2018-0 No 1mg tartrate 50 2-20 mg tablet 00:00: 00 ranitidine 2018-0 No 1mg 150 mg 2-20 capsule 00:00: 00 ranitidine 2018-0 No 1mg 150 mg 2-20 capsule 00:00: 00 metoprolol 2018-0 No 1mg tartrate 50 2-20 mg tablet 00:00: 00 ranitidine 2018-0 No 1mg 150 mg 2-20 capsule 00:00: 00 ranitidine 2018-0 No 1mg 150 mg 2-20 capsule 00:00: 00 metoprolol 2018-0 No 1mg tartrate 50 1-10 mg tablet 00:00: 00 ranitidine 2018-0 No 1mg 150 mg 1-10 capsule 00:00: 00 metoprolol 2018-0 No 1mg tartrate 50 1-10 mg tablet 00:00: 00 ranitidine 2018-0 No 1mg 150 mg 1-10 capsule 00:00: 00 metoprolol 2018-0 No 1mg tartrate 50 1-10 mg tablet 00:00: 00 ranitidine 2018-0 No 1mg 150 mg 1-10 capsule 00:00: 00 metoprolol 2018-0 No 1mg tartrate 50 1-10 mg tablet 00:00: 00 ranitidine 2018-0 No 1mg 150 mg 1-10 capsule 00:00: 00 metoprolol 2018-0 No 1mg tartrate 50 1-10 mg tablet 00:00: 00 ranitidine 2018-0 No 1mg 150 mg 1-10 capsule 00:00: 00 metoprolol 2018-0 No 1mg tartrate 50 1-10 mg tablet 00:00: 00 ranitidine 2018-0 No 1mg 150 mg 1-10 capsule 00:00: 00 metoprolol 2018-0 No 1mg tartrate 25 1-03 mg tablet 00:00: 00 metoprolol 2018-0 No 1mg tartrate 25 1-03 mg tablet 00:00: 00 metoprolol 2018-0 No 1mg tartrate 25 1-03 mg tablet 00:00: 00 metoprolol 2018-0 No 1mg tartrate 25 1-03 mg tablet 00:00: 00 metoprolol 2018-0 No 1mg tartrate 25 1-03 mg tablet 00:00: 00 metoprolol 2018-0 No 1mg tartrate 25 1-03 mg tablet 00:00: 00 metoprolol 2017-1 No 1mg tartrate 25 1-30 mg tablet 00:00: 00 metoprolol 2017-1 No 1mg tartrate 25 1-30 mg tablet 00:00: 00 metoprolol 2017-1 No 1mg tartrate 25 1-30 mg tablet 00:00: 00 metoprolol 2017-1 No 1mg tartrate 25 1-30 mg tablet 00:00: 00 metoprolol 2017-1 No 1mg tartrate 25 1-30 mg tablet 00:00: 00 metoprolol 2017-1 No 1mg tartrate 25 1-30 mg tablet 00:00: 00 amlodipine 2016-05 No 1mg 5 mg tablet 06-01 00:00: 00 amlodipine 2016-05 No 1mg 5 mg tablet 06-01 00:00: 00 amlodipine 2016-05 No 1mg 5 mg tablet 06-01 00:00: 00 amlodipine 2016-05 No 1mg 5 mg tablet 06-01 00:00: 00 amlodipine 2016-05 No 1mg 5 mg tablet 06-01 00:00: 00 amlodipine 2016-05 No 1mg 5 mg tablet 06-01 00:00: 00 lisinopril 2016-05 No 1mg 20 0-02 mg-hydrochl 00:00: orothiazide 00 12.5 mg tablet metoprolol 2016-05 No 1mg tartrate 25 0-02 mg tablet 00:00: 00 fluoxetine 2016-05 No 1mg 10 mg 0-02 tablet 00:00: 00 lisinopril 2016-05 No 1mg 20 0-02 mg-hydrochl 00:00: orothiazide 00 12.5 mg tablet metoprolol 2016-05 No 1mg tartrate 25 0-02 mg tablet 00:00: 00 fluoxetine 2016-05 No 1mg 10 mg 0-02 tablet 00:00: 00 lisinopril 2016-05 No 1mg 20 0-02 mg-hydrochl 00:00: orothiazide 00 12.5 mg tablet metoprolol 2016-05 No 1mg tartrate 25 0-02 mg tablet 00:00: 00 fluoxetine 2016-05 No 1mg 10 mg 0-02 tablet 00:00: 00 lisinopril 2016-05 No 1mg 20 0-02 mg-hydrochl 00:00: orothiazide 00 12.5 mg tablet metoprolol 2016-05 No 1mg tartrate 25 0-02 mg tablet 00:00: 00 fluoxetine 2016-05 No 1mg 10 mg 0-02 tablet 00:00: 00 lisinopril 2016-05 No 1mg 20 0-02 mg-hydrochl 00:00: orothiazide 00 12.5 mg tablet metoprolol 2016-05 No 1mg tartrate 25 0-02 mg tablet 00:00: 00 fluoxetine 2016-05 No 1mg 10 mg 0-02 tablet 00:00: 00 lisinopril 2017-1 No 1mg 20 0-02 mg-hydrochl 00:00: orothiazide 00 12.5 mg tablet metoprolol 2017-1 No 1mg tartrate 25 0-02 mg tablet 00:00: 00 fluoxetine 2017-1 No 1mg 10 mg 0-02 tablet 00:00: 00 Augmentin 2017-0 No 1mg 875 mg-125 9-21 mg tablet 00:00: 00 Augmentin 2017-0 No 1mg 875 mg-125 9-21 mg tablet 00:00: 00 Augmentin 2017-0 No 1mg 875 mg-125 9-21 mg tablet 00:00: 00 Augmentin 2017-0 No 1mg 875 mg-125 9-21 mg tablet 00:00: 00 Augmentin 2017-0 No 1mg 875 mg-125 9-21 mg tablet 00:00: 00 Augmentin 2017-0 No 1mg 875 mg-125 9-21 mg tablet 00:00: 00 metoprolol 2017-0 No 1mg tartrate 25 9-15 mg tablet 00:00: 00 lisinopril 2017-0 No 1mg 20 9-15 mg-hydrochl 00:00: orothiazide 00 12.5 mg tablet metoprolol 2017-0 No 1mg tartrate 25 9-15 mg tablet 00:00: 00 lisinopril 2017-0 No 1mg 20 9-15 mg-hydrochl 00:00: orothiazide 00 12.5 mg tablet metoprolol 2017-0 No 1mg tartrate 25 9-15 mg tablet 00:00: 00 lisinopril 2017-0 No 1mg 20 9-15 mg-hydrochl 00:00: orothiazide 00 12.5 mg tablet metoprolol 2017-0 No 1mg tartrate 25 9-15 mg tablet 00:00: 00 lisinopril 2017-0 No 1mg 20 9-15 mg-hydrochl 00:00: orothiazide 00 12.5 mg tablet metoprolol 2017-0 No 1mg tartrate 25 9-15 mg tablet 00:00: 00 lisinopril 2017-0 No 1mg 20 9-15 mg-hydrochl 00:00: orothiazide 00 12.5 mg tablet metoprolol 2017-0 No 1mg tartrate 25 9-15 mg tablet 00:00: 00 lisinopril 2017-0 No 1mg 20 9-15 mg-hydrochl 00:00: orothiazide 00 12.5 mg tablet lisinopril 2017-0 No 1mg 20 7-25 mg-hydrochl 00:00: orothiazide 00 12.5 mg tablet lisinopril 2017-0 No 1mg 20 7-25 mg-hydrochl 00:00: orothiazide 00 12.5 mg tablet metoprolol 2017-0 No 1mg tartrate 25 7-25 mg tablet 00:00: 00 lisinopril 2017-0 No 1mg 20 7-25 mg-hydrochl 00:00: orothiazide 00 12.5 mg tablet lisinopril 2017-0 No 1mg 20 7-25 mg-hydrochl 00:00: orothiazide 00 12.5 mg tablet metoprolol 2017-0 No 1mg tartrate 25 7-25 mg tablet 00:00: 00 lisinopril 2017-0 No 1mg 20 7-25 mg-hydrochl 00:00: orothiazide 00 12.5 mg tablet lisinopril 2017-0 No 1mg 20 7-25 mg-hydrochl 00:00: orothiazide 00 12.5 mg tablet metoprolol 2017-0 No 1mg tartrate 25 7-25 mg tablet 00:00: 00 lisinopril 2017-0 No 1mg 20 7-25 mg-hydrochl 00:00: orothiazide 00 12.5 mg tablet lisinopril 2017-0 No 1mg 20 7-25 mg-hydrochl 00:00: orothiazide 00 12.5 mg tablet metoprolol 2017-0 No 1mg tartrate 25 7-25 mg tablet 00:00: 00 lisinopril 2017-0 No 1mg 20 7-25 mg-hydrochl 00:00: orothiazide 00 12.5 mg tablet lisinopril 2017-0 No 1mg 20 7-25 mg-hydrochl 00:00: orothiazide 00 12.5 mg tablet metoprolol 2017-0 No 1mg tartrate 25 7-25 mg tablet 00:00: 00 lisinopril 2017-0 No 1mg 20 7-25 mg-hydrochl 00:00: orothiazide 00 12.5 mg tablet lisinopril 2017-0 No 1mg 20 7-25 mg-hydrochl 00:00: orothiazide 00 12.5 mg tablet metoprolol 2017-0 No 1mg tartrate 25 7-25 mg tablet 00:00: 00 prednisone 2017-0 No mg 10 mg 6-06 tablet 00:00: 00 metoprolol 2017-0 No 1mg tartrate 25 6-06 mg tablet 00:00: 00 prednisone 2017-0 No 1mg 5 mg tablet 6-06 00:00: 00 verapamil 2017-0 No 1mg 40 mg 6-06 tablet 00:00: 00 cyclobenzap 2017-0 No 51mg rine 10 mg 6-06 tablet 00:00: 00 gabapentin 2017-0 No 1mg 300 mg 6-06 capsule 00:00: 00 gabapentin 2017-0 No 1mg 300 mg 6-06 capsule 00:00: 00 prednisone 2017-0 No mg 10 mg 6-06 tablet 00:00: 00 metoprolol 2017-0 No 1mg tartrate 25 6-06 mg tablet 00:00: 00 prednisone 2017-0 No 1mg 5 mg tablet 6-06 00:00: 00 verapamil 2017-0 No 1mg 40 mg 6-06 tablet 00:00: 00 cyclobenzap 2017-0 No 51mg rine 10 mg 6-06 tablet 00:00: 00 gabapentin 2017-0 No 1mg 300 mg 6-06 capsule 00:00: 00 gabapentin 2017-0 No 1mg 300 mg 6-06 capsule 00:00: 00 prednisone 2017-0 No mg 10 mg 6-06 tablet 00:00: 00 metoprolol 2017-0 No 1mg tartrate 25 6-06 mg tablet 00:00: 00 prednisone 2017-0 No 1mg 5 mg tablet 6-06 00:00: 00 verapamil 2017-0 No 1mg 40 mg 6-06 tablet 00:00: 00 cyclobenzap 2017-0 No 51mg rine 10 mg 6-06 tablet 00:00: 00 gabapentin 2017-0 No 1mg 300 mg 6-06 capsule 00:00: 00 gabapentin 2017-0 No 1mg 300 mg 6-06 capsule 00:00: 00 prednisone 2017-0 No mg 10 mg 6-06 tablet 00:00: 00 metoprolol 2017-0 No 1mg tartrate 25 6-06 mg tablet 00:00: 00 prednisone 2017-0 No 1mg 5 mg tablet 6-06 00:00: 00 verapamil 2017-0 No 1mg 40 mg 6-06 tablet 00:00: 00 cyclobenzap 2017-0 No 51mg rine 10 mg 6-06 tablet 00:00: 00 gabapentin 2017-0 No 1mg 300 mg 6-06 capsule 00:00: 00 gabapentin 2017-0 No 1mg 300 mg 6-06 capsule 00:00: 00 prednisone 2017-0 No mg 10 mg 6-06 tablet 00:00: 00 metoprolol 2017-0 No 1mg tartrate 25 6-06 mg tablet 00:00: 00 prednisone 2017-0 No 1mg 5 mg tablet 6-06 00:00: 00 verapamil 2017-0 No 1mg 40 mg 6-06 tablet 00:00: 00 cyclobenzap 2017-0 No 51mg rine 10 mg 6-06 tablet 00:00: 00 gabapentin 2017-0 No 1mg 300 mg 6-06 capsule 00:00: 00 gabapentin 2017-0 No 1mg 300 mg 6-06 capsule 00:00: 00 prednisone 2017-0 No mg 10 mg 6-06 tablet 00:00: 00 metoprolol 2017-0 No 1mg tartrate 25 6-06 mg tablet 00:00: 00 prednisone 2017-0 No 1mg 5 mg tablet 6-06 00:00: 00 verapamil 2017-0 No 1mg 40 mg 6-06 tablet 00:00: 00 cyclobenzap 2017-0 No 51mg rine 10 mg 6-06 tablet 00:00: 00 gabapentin 2017-0 No 1mg 300 mg 6-06 capsule 00:00: 00 gabapentin 2017-0 No 1mg 300 mg 6-06 capsule 00:00: 00 lisinopril 2017-0 No 1mg 20 5-01 mg-hydrochl 00:00: orothiazide 00 12.5 mg tablet metoprolol 2017-0 No 1mg tartrate 25 5-01 mg tablet 00:00: 00 lisinopril 2017-0 No 1mg 20 5-01 mg-hydrochl 00:00: orothiazide 00 12.5 mg tablet metoprolol 2017-0 No 1mg tartrate 25 5-01 mg tablet 00:00: 00 lisinopril 2017-0 No 1mg 20 5-01 mg-hydrochl 00:00: orothiazide 00 12.5 mg tablet metoprolol 2017-0 No 1mg tartrate 25 5-01 mg tablet 00:00: 00 lisinopril 2017-0 No 1mg 20 5-01 mg-hydrochl 00:00: orothiazide 00 12.5 mg tablet metoprolol 2017-0 No 1mg tartrate 25 5-01 mg tablet 00:00: 00 lisinopril 2017-0 No 1mg 20 5-01 mg-hydrochl 00:00: orothiazide 00 12.5 mg tablet metoprolol 2017-0 No 1mg tartrate 25 5-01 mg tablet 00:00: 00 lisinopril 2017-0 No 1mg 20 5-01 mg-hydrochl 00:00: orothiazide 00 12.5 mg tablet metoprolol 2017-0 No 1mg tartrate 25 5-01 mg tablet 00:00: 00 loratadine 2017-0 No 1mg 10 mg 4-17 tablet 00:00: 00 omeprazole 2017-0 No 1mg 20 mg 4-17 capsule,del 00:00: ayed 00 release omeprazole 2017-0 No 1mg 20 mg 4-17 capsule,del 00:00: ayed 00 release gabapentin 2017-0 No 1mg 100 mg 4-17 capsule 00:00: 00 loratadine 2017-0 No 1mg 10 mg 4-17 tablet 00:00: 00 omeprazole 2017-0 No 1mg 20 mg 4-17 capsule,del 00:00: ayed 00 release omeprazole 2017-0 No 1mg 20 mg 4-17 capsule,del 00:00: ayed 00 release gabapentin 2017-0 No 1mg 100 mg 4-17 capsule 00:00: 00 loratadine 2017-0 No 1mg 10 mg 4-17 tablet 00:00: 00 omeprazole 2017-0 No 1mg 20 mg 4-17 capsule,del 00:00: ayed 00 release omeprazole 2017-0 No 1mg 20 mg 4-17 capsule,del 00:00: ayed 00 release gabapentin 2017-0 No 1mg 100 mg 4-17 capsule 00:00: 00 loratadine 2017-0 No 1mg 10 mg 4-17 tablet 00:00: 00 omeprazole 2017-0 No 1mg 20 mg 4-17 capsule,del 00:00: ayed 00 release omeprazole 2017-0 No 1mg 20 mg 4-17 capsule,del 00:00: ayed 00 release gabapentin 2017-0 No 1mg 100 mg 4-17 capsule 00:00: 00 loratadine 2017-0 No 1mg 10 mg 4-17 tablet 00:00: 00 omeprazole 2017-0 No 1mg 20 mg 4-17 capsule,del 00:00: ayed 00 release omeprazole 2017-0 No 1mg 20 mg 4-17 capsule,del 00:00: ayed 00 release gabapentin 2017-0 No 1mg 100 mg 4-17 capsule 00:00: 00 loratadine 2017-0 No 1mg 10 mg 4-17 tablet 00:00: 00 omeprazole 2017-0 No 1mg 20 mg 4-17 capsule,del 00:00: ayed 00 release omeprazole 2017-0 No 1mg 20 mg 4-17 capsule,del 00:00: ayed 00 release gabapentin 2017-0 No 1mg 100 mg 4-17 capsule 00:00: 00 lisinopril 2017-0 No 1mg 20 3-13 mg-hydrochl 00:00: orothiazide 00 12.5 mg tablet prednisone 2017-0 No 2mg 20 mg 3-13 tablet 00:00: 00 loratadine 2017-0 No 1mg 10 mg 3-13 tablet 00:00: 00 metoprolol 2017-0 No 1mg tartrate 25 3-13 mg tablet 00:00: 00 amoxicillin 2017-0 No 1mg 500 mg 3-13 capsule 00:00: 00 gabapentin 2017-0 No 1mg 100 mg 3-13 capsule 00:00: 00 promethazin 2017-0 No 10mg/5 e-DM 6.25 3-13 mL mg-15 mg/5 00:00: mL syrup 00 lisinopril 2017-0 No 1mg 20 3-13 mg-hydrochl 00:00: orothiazide 00 12.5 mg tablet prednisone 2017-0 No 2mg 20 mg 3-13 tablet 00:00: 00 loratadine 2017-0 No 1mg 10 mg 3-13 tablet 00:00: 00 metoprolol 2017-0 No 1mg tartrate 25 3-13 mg tablet 00:00: 00 amoxicillin 2017-0 No 1mg 500 mg 3-13 capsule 00:00: 00 gabapentin 2017-0 No 1mg 100 mg 3-13 capsule 00:00: 00 promethazin 2017-0 No 10mg/5 e-DM 6.25 3-13 mL mg-15 mg/5 00:00: mL syrup 00 lisinopril 2017-0 No 1mg 20 3-13 mg-hydrochl 00:00: orothiazide 00 12.5 mg tablet prednisone 2017-0 No 2mg 20 mg 3-13 tablet 00:00: 00 lisinopril 2017-0 No 1mg 20 3-13 mg-hydrochl 00:00: orothiazide 00 12.5 mg tablet prednisone 2017-0 No 2mg 20 mg 3-13 tablet 00:00: 00 loratadine 2017-0 No 1mg 10 mg 3-13 tablet 00:00: 00 loratadine 2017-0 No 1mg 10 mg 3-13 tablet 00:00: 00 metoprolol 2017-0 No 1mg tartrate 25 3-13 mg tablet 00:00: 00 amoxicillin 2017-0 No 1mg 500 mg 3-13 capsule 00:00: 00 gabapentin 2017-0 No 1mg 100 mg 3-13 capsule 00:00: 00 promethazin 2017-0 No 10mg/5 e-DM 6.25 3-13 mL mg-15 mg/5 00:00: mL syrup 00 metoprolol 2017-0 No 1mg tartrate 25 3-13 mg tablet 00:00: 00 amoxicillin 2017-0 No 1mg 500 mg 3-13 capsule 00:00: 00 gabapentin 2017-0 No 1mg 100 mg 3-13 capsule 00:00: 00 promethazin 2017-0 No 10mg/5 e-DM 6.25 3-13 mL mg-15 mg/5 00:00: mL syrup 00 lisinopril 2017-0 No 1mg 20 3-13 mg-hydrochl 00:00: orothiazide 00 12.5 mg tablet prednisone 2017-0 No 2mg 20 mg 3-13 tablet 00:00: 00 loratadine 2017-0 No 1mg 10 mg 3-13 tablet 00:00: 00 metoprolol 2017-0 No 1mg tartrate 25 3-13 mg tablet 00:00: 00 amoxicillin 2017-0 No 1mg 500 mg 3-13 capsule 00:00: 00 gabapentin 2017-0 No 1mg 100 mg 3-13 capsule 00:00: 00 promethazin 2017-0 No 10mg/5 e-DM 6.25 3-13 mL mg-15 mg/5 00:00: mL syrup 00 lisinopril 2017-0 No 1mg 20 3-13 mg-hydrochl 00:00: orothiazide 00 12.5 mg tablet prednisone 2017-0 No 2mg 20 mg 3-13 tablet 00:00: 00 loratadine 2017-0 No 1mg 10 mg 3-13 tablet 00:00: 00 metoprolol 2017-0 No 1mg tartrate 25 3-13 mg tablet 00:00: 00 amoxicillin 2017-0 No 1mg 500 mg 3-13 capsule 00:00: 00 gabapentin 2017-0 No 1mg 100 mg 3-13 capsule 00:00: 00 promethazin 2017-0 No 10mg/5 e-DM 6.25 3-13 mL mg-15 mg/5 00:00: mL syrup 00 prednisone 2017-0 No mg 10 mg 2-09 tablet 00:00: 00 butalbital- 2017-0 No 1mg acetaminoph 2-09 en 50 00:00: mg-325 mg 00 tablet propranolol 2017-0 No 1mg 20 mg 2-09 tablet 00:00: 00 omeprazole 2017-0 No 1mg 20 mg 2-09 capsule,del 00:00: ayed 00 release prednisone 2017-0 No mg 10 mg 2-09 tablet 00:00: 00 butalbital- 2017-0 No 1mg acetaminoph 2-09 en 50 00:00: mg-325 mg 00 tablet propranolol 2017-0 No 1mg 20 mg 2-09 tablet 00:00: 00 omeprazole 2017-0 No 1mg 20 mg 2-09 capsule,del 00:00: ayed 00 release prednisone 2017-0 No mg 10 mg 2-09 tablet 00:00: 00 butalbital- 2017-0 No 1mg acetaminoph 2-09 en 50 00:00: mg-325 mg 00 tablet propranolol 2017-0 No 1mg 20 mg 2-09 tablet 00:00: 00 omeprazole 2017-0 No 1mg 20 mg 2-09 capsule,del 00:00: ayed 00 release prednisone 2017-0 No mg 10 mg 2-09 tablet 00:00: 00 butalbital- 2017-0 No 1mg acetaminoph 2-09 en 50 00:00: mg-325 mg 00 tablet propranolol 2017-0 No 1mg 20 mg 2-09 tablet 00:00: 00 omeprazole 2017-0 No 1mg 20 mg 2-09 capsule,del 00:00: ayed 00 release prednisone 2017-0 No mg 10 mg 2-09 tablet 00:00: 00 butalbital- 2017-0 No 1mg acetaminoph 2-09 en 50 00:00: mg-325 mg 00 tablet propranolol 2017-0 No 1mg 20 mg 2-09 tablet 00:00: 00 omeprazole 2017-0 No 1mg 20 mg 2-09 capsule,del 00:00: ayed 00 release prednisone 2017-0 No mg 10 mg 2-09 tablet 00:00: 00 butalbital- 2017-0 No 1mg acetaminoph 2-09 en 50 00:00: mg-325 mg 00 tablet propranolol 2017-0 No 1mg 20 mg 2-09 tablet 00:00: 00 omeprazole 2017-0 No 1mg 20 mg 2-09 capsule,del 00:00: ayed 00 release amoxicillin 2016-1 No 1mg 875 mg 0-01 tablet 00:00: 00 ibuprofen 2016-1 No 1mg 800 mg 0-01 tablet 00:00: 00 amoxicillin 2016-1 No 1mg 875 mg 0-01 tablet 00:00: 00 ibuprofen 2016-1 No 1mg 800 mg 0-01 tablet 00:00: 00 amoxicillin 2016-1 No 1mg 875 mg 0-01 tablet 00:00: 00 ibuprofen 2016-1 No 1mg 800 mg 0-01 tablet 00:00: 00 amoxicillin 2016-1 No 1mg 875 mg 0-01 tablet 00:00: 00 ibuprofen 2016-1 No 1mg 800 mg 0-01 tablet 00:00: 00 amoxicillin 2016-1 No 1mg 875 mg 0-01 tablet 00:00: 00 ibuprofen 2016-1 No 1mg 800 mg 0-01 tablet 00:00: 00 amoxicillin 2015-1 No 1mg 875 mg 0-01 tablet 00:00: 00 ibuprofen 2016-1 No 1mg 800 mg 0-01 tablet 00:00: 00 lisinopril 2016-0 No 1mg 20 9-01 mg-hydrochl 00:00: orothiazide 00 12.5 mg tablet metoprolol 2016-0 No 1mg tartrate 25 9-01 mg tablet 00:00: 00 omeprazole 2016-0 No 1mg 20 mg 9-01 capsule,del 00:00: ayed 00 release gabapentin 2016-0 No 1mg 100 mg 9-01 capsule 00:00: 00 lisinopril 2015-0 No 1mg 20 9-01 mg-hydrochl 00:00: orothiazide 00 12.5 mg tablet metoprolol 2016-0 No 1mg tartrate 25 9-01 mg tablet 00:00: 00 omeprazole 2016-0 No 1mg 20 mg 9- capsule,del 00:00: ayed 00 release gabapentin 2016-0 No 1mg 100 mg 9- capsule 00:00: 00 lisinopril 2016-0 No 1mg 20 9-01 mg-hydrochl 00:00: orothiazide 00 12.5 mg tablet metoprolol 2016-0 No 1mg tartrate 25 9-01 mg tablet 00:00: 00 omeprazole 2016-0 No 1mg 20 mg 9- capsule,del 00:00: ayed 00 release gabapentin 2016-0 No 1mg 100 mg 9- capsule 00:00: 00 lisinopril 2016-0 No 1mg 20 9-01 mg-hydrochl 00:00: orothiazide 00 12.5 mg tablet metoprolol 2016-0 No 1mg tartrate 25 9-01 mg tablet 00:00: 00 omeprazole 2016-0 No 1mg 20 mg 9- capsule,del 00:00: ayed 00 release gabapentin 2016-0 No 1mg 100 mg 9- capsule 00:00: 00 lisinopril 2016-0 No 1mg 20 9-01 mg-hydrochl 00:00: orothiazide 00 12.5 mg tablet metoprolol 2016-0 No 1mg tartrate 25 9-01 mg tablet 00:00: 00 omeprazole 2016-0 No 1mg 20 mg 9- capsule,del 00:00: ayed 00 release gabapentin 2016-0 No 1mg 100 mg 9- capsule 00:00: 00 lisinopril 2016-0 No 1mg 20 9-01 mg-hydrochl 00:00: orothiazide 00 12.5 mg tablet metoprolol 2016-0 No 1mg tartrate 25 9-01 mg tablet 00:00: 00 omeprazole 2016-0 No 1mg 20 mg 9- capsule,del 00:00: ayed 00 release gabapentin 2016-0 No 1mg 100 mg 9- capsule 00:00: 00 metoprolol 2016-0 No 1mg tartrate 25 6-15 mg tablet 00:00: 00 metoprolol 2016-0 No 1mg tartrate 25 6-15 mg tablet 00:00: 00 metoprolol 2016-0 No 1mg tartrate 25 6-15 mg tablet 00:00: 00 metoprolol 2016-0 No 1mg tartrate 25 6-15 mg tablet 00:00: 00 metoprolol 2016-0 No 1mg tartrate 25 6-15 mg tablet 00:00: 00 metoprolol 2016-0 No 1mg tartrate 25 6-15 mg tablet 00:00: 00 lisinopril 2016-0 No 1mg 20 5-26 mg-hydrochl 00:00: orothiazide 00 12.5 mg tablet omeprazole 2016-0 No 1mg 20 mg 5-26 capsule,del 00:00: ayed 00 release lisinopril 2016-0 No 1mg 20 5-26 mg-hydrochl 00:00: orothiazide 00 12.5 mg tablet omeprazole 2016-0 No 1mg 20 mg 5-26 capsule,del 00:00: ayed 00 release lisinopril 2016-0 No 1mg 20 5-26 mg-hydrochl 00:00: orothiazide 00 12.5 mg tablet omeprazole 2016-0 No 1mg 20 mg 5-26 capsule,del 00:00: ayed 00 release lisinopril 2016-0 No 1mg 20 5-26 mg-hydrochl 00:00: orothiazide 00 12.5 mg tablet omeprazole 2016-0 No 1mg 20 mg 5-26 capsule,del 00:00: ayed 00 release lisinopril 2016-0 No 1mg 20 5-26 mg-hydrochl 00:00: orothiazide 00 12.5 mg tablet omeprazole 2016-0 No 1mg 20 mg 5-26 capsule,del 00:00: ayed 00 release lisinopril 2016-0 No 1mg 20 5-26 mg-hydrochl 00:00: orothiazide 00 12.5 mg tablet omeprazole 2016-0 No 1mg 20 mg 5-26 capsule,del 00:00: ayed 00 release metoprolol 2016-0 No 1mg tartrate 25 1-21 mg tablet 00:00: 00 Wellbutrin 2016-0 No 1mg 100 mg 1-21 tablet 00:00: 00 omeprazole 2016-0 No 1mg 20 mg 1-21 capsule,del 00:00: ayed 00 release metoprolol 2016-0 No 1mg tartrate 25 1-21 mg tablet 00:00: 00 Wellbutrin 2016-0 No 1mg 100 mg 1-21 tablet 00:00: 00 omeprazole 2016-0 No 1mg 20 mg 1-21 capsule,del 00:00: ayed 00 release metoprolol 2016-0 No 1mg tartrate 25 1-21 mg tablet 00:00: 00 Wellbutrin 2016-0 No 1mg 100 mg 1-21 tablet 00:00: 00 omeprazole 2016-0 No 1mg 20 mg 1-21 capsule,del 00:00: ayed 00 release metoprolol 2016-0 No 1mg tartrate 25 1-21 mg tablet 00:00: 00 Wellbutrin 2016-0 No 1mg 100 mg 1-21 tablet 00:00: 00 omeprazole 2016-0 No 1mg 20 mg 1-21 capsule,del 00:00: ayed 00 release metoprolol 2016-0 No 1mg tartrate 25 1-21 mg tablet 00:00: 00 Wellbutrin 2016-0 No 1mg 100 mg 1-21 tablet 00:00: 00 omeprazole 2016-0 No 1mg 20 mg 1-21 capsule,del 00:00: ayed 00 release metoprolol 2016-0 No 1mg tartrate 25 1-21 mg tablet 00:00: 00 Wellbutrin 2016-0 No 1mg 100 mg 1-21 tablet 00:00: 00 omeprazole 2016-0 No 1mg 20 mg 1-21 capsule,del 00:00: ayed 00 release Wellbutrin 2014-1 No 1mg 100 mg 0-15 tablet 00:00: 00 simvastatin 2015-1 No 1mg 20 mg 0-15 tablet 00:00: 00 Wellbutrin 2015-1 No 1mg 100 mg 0-15 tablet 00:00: 00 Wellbutrin 2015-1 No 1mg 100 mg 0-15 tablet 00:00: 00 simvastatin 2015-1 No 1mg 20 mg 0-15 tablet 00:00: 00 simvastatin 2015-1 No 1mg 20 mg 0-15 tablet 00:00: 00 Wellbutrin 2015-1 No 1mg 100 mg 0-15 tablet 00:00: 00 simvastatin 2015-1 No 1mg 20 mg 0-15 tablet 00:00: 00 Wellbutrin 2015-1 No 1mg 100 mg 0-15 tablet 00:00: 00 simvastatin 2015-1 No 1mg 20 mg 0-15 tablet 00:00: 00 Wellbutrin 2015-1 No 1mg 100 mg 0-15 tablet 00:00: 00 simvastatin 2014- No 1mg 20 mg 0-15 tablet 00:00: 00 [facility] 2014-05 No 1mg mg tablet 0-09 00:00: 00 [facility] 2014-05 No 1mg mg tablet 0-09 00:00: 00 metoprolol 2014- No 1mg tartrate 25 0-09 mg tablet 00:00: 00 Zithromax 2014- No 1mg Z-Francisco J 250 0-09 mg tablet 00:00: 00 metoprolol 2014- No 1mg tartrate 25 0-09 mg tablet 00:00: 00 Zithromax 2014- No 1mg Z-Francisco J 250 0-09 mg tablet 00:00: 00 [facility] 2014-05 No 1mg mg tablet 0-09 00:00: 00 metoprolol 2014- No 1mg tartrate 25 0-09 mg tablet 00:00: 00 Zithromax 2014- No 1mg Z-Francisco J 250 0-09 mg tablet 00:00: 00 [facility] 2014-05 No 1mg mg tablet 0-09 00:00: 00 metoprolol 2014- No 1mg tartrate 25 0-09 mg tablet 00:00: 00 Zithromax 2014- No 1mg Z-Francisco J 250 0-09 mg tablet 00:00: 00 [facility] 2014-05 No 1mg mg tablet 0-09 00:00: 00 metoprolol 2014- No 1mg tartrate 25 0-09 mg tablet 00:00: 00 Zithromax 2014- No 1mg Z-Francisco J 250 0-09 mg tablet 00:00: 00 [facility] 2014-05 No 1mg mg tablet 0-09 00:00: 00 metoprolol 2014- No 1mg tartrate 25 0-09 mg tablet 00:00: 00 Zithromax 2014- No 1mg Z-Francisco J 250 0-09 mg tablet 00:00: 00 Motrin 800 2014-0 No 1mg mg tablet 6- 00:00: 00 metoprolol 2014-0 No 1mg tartrate 25 6-19 mg tablet 00:00: 00 Motrin 800 2014-0 No 1mg mg tablet 6- 00:00: 00 metoprolol 2015-0 No 1mg tartrate 25 6-19 mg tablet 00:00: 00 Motrin 800 2015-0 No 1mg mg tablet 6-19 00:00: 00 metoprolol 2015-0 No 1mg tartrate 25 6-19 mg tablet 00:00: 00 Motrin 800 2015-0 No 1mg mg tablet 6- 00:00: 00 metoprolol 2015-0 No 1mg tartrate 25 6-19 mg tablet 00:00: 00 Motrin 800 2015-0 No 1mg mg tablet 6- 00:00: 00 metoprolol 2015-0 No 1mg tartrate 25 6-19 mg tablet 00:00: 00 Motrin 800 2015-0 No 1mg mg tablet 6- 00:00: 00 metoprolol 2015-0 No 1mg tartrate 25 6-19 mg tablet 00:00: 00 Motrin 800 2015-0 No 1mg mg tablet 4- 00:00: 00 Motrin 800 2015-0 No 1mg mg tablet 4- 00:00: 00 Motrin 800 2014-0 No 1mg mg tablet 4- 00:00: 00 Motrin 800 2015-0 No 1mg mg tablet 4- 00:00: 00 Motrin 800 2015-0 No 1mg mg tablet 4- 00:00: 00 Motrin 800 2015-0 No 1mg mg tablet 4- 00:00: 00 metoprolol 2015-0 No 1mg tartrate 25 4-10 mg tablet 00:00: 00 naproxen 2015-0 No 1mg 500 mg 4-10 tablet 00:00: 00 naproxen 2015-0 No 1mg 500 mg 4-10 tablet 00:00: 00 Flexeril 5 2015-0 No 1mg mg tablet 4-10 00:00: 00 metoprolol 2015-0 No 1mg tartrate 25 4-10 mg tablet 00:00: 00 naproxen 2015-0 No 1mg 500 mg 4-10 tablet 00:00: 00 naproxen 2015-0 No 1mg 500 mg 4-10 tablet 00:00: 00 Flexeril 5 2015-0 No 1mg mg tablet 4-10 00:00: 00 metoprolol 2015-0 No 1mg tartrate 25 4-10 mg tablet 00:00: 00 naproxen 2015-0 No 1mg 500 mg 4-10 tablet 00:00: 00 naproxen 2015-0 No 1mg 500 mg 4-10 tablet 00:00: 00 Flexeril 5 2015-0 No 1mg mg tablet 4-10 00:00: 00 metoprolol 2015-0 No 1mg tartrate 25 4-10 mg tablet 00:00: 00 naproxen 2015-0 No 1mg 500 mg 4-10 tablet 00:00: 00 metoprolol 2015-0 No 1mg tartrate 25 4-10 mg tablet 00:00: 00 naproxen 2015-0 No 1mg 500 mg 4-10 tablet 00:00: 00 naproxen 2015-0 No 1mg 500 mg 4-10 tablet 00:00: 00 Flexeril 5 2015-0 No 1mg mg tablet 4-10 00:00: 00 naproxen 2015-0 No 1mg 500 mg 4-10 tablet 00:00: 00 Flexeril 5 2015-0 No 1mg mg tablet 4-10 00:00: 00 metoprolol 2015-0 No 1mg tartrate 25 4-10 mg tablet 00:00: 00 naproxen 2015-0 No 1mg 500 mg 4-10 tablet 00:00: 00 naproxen 2015-0 No 1mg 500 mg 4-10 tablet 00:00: 00 Flexeril 5 2015-0 No 1mg mg tablet 4-10 00:00: 00 Immunizations Ordered Filled Immunization Date Status Comments [facility] e Immunization Name Name SARS-COV-2 COVID-19 2020-12-13 Completed [facility] PFIZER VACCINE 00:00:[address] [facility] SARS-COV-2 COVID-19 2020-12-13 Completed [facility] of PFIZER VACCINE 00:00:[address] [facility] SARS-COV-2 COVID-19 2020-12-13 Completed [facility]ive rs[facility] of PFIZER VACCINE 00:00:[address] [facility] SARS-COV-2 COVID-19 2020-12-13 Completed [facility] of PFIZER VACCINE 00:00:[address] [facility] SARS-COV-2 COVID-19 2020-11-22 Completed [facility] of PFIZER VACCINE 00:00:[address] [facility] SARS-COV-2 COVID-19 2020-11-22 Completed [facility] of PFIZER VACCINE 00:00:[address] [facility] SARS-COV-2 COVID-19 2020-11-22 Completed [facility] of PFIZER VACCINE 00:00:[address] [facility] SARS-COV-2 COVID-19 2020-11-22 Completed [facility] of PFIZER VACCINE 00:00:[address] [facility] Tetanus/Diptheria 2012-04-10 Completed [facility] 00[facility]00 [facility] Tetanus/Diptheria 2012-04-10 Completed [facility]00 [facility] Tetanus/Diptheria 2012-04-10 Completed [facility] 00:00:00 [facility] Tetanus/Diptheria 2012-04-10 Completed [facility] 00:[facility]:00 [facility] Vital Signs Vital Name Observation Time Observation Value Comments Source Body temperature 2021-09-25 07:54:00 [address] [address] [facility] Systolic blood 2021-09-25 07:46:00 119 mm[Hg] [facility] sity of pressure [facility] Diastolic blood 2021-09-25 07:46:00 81 mm[Hg] [facility]ive rsity of [facility] Heart rate 2021-09-25 07:46:00 79 /min [facility] Respiratory rate 2021-09-25 07:46:00 19 /[facility] 2021-09-25 06:15:00 98 /min [facility] Arterial blood by [facility] Pulse oximetry [place] Body height 2021-09-25 03:29:00 154.[address] [address] [facility] Body weight 2021-09-25 03:29:[address] [facility] BMI 2021-09-25 03:29:00 52.91 kg/m2 [facility] ty [facility] Systolic blood 2021-06-10 21:13:00 146 mm[Hg] [facility]iver [facility]ity of pressure [facility] Diastolic blood 2021-06-10 21:13:00 83 mm[Hg] Unive rsity of pressure [facility] Heart rate 2021-06-10 21:05:00 71 /min [facility] Body height 2021-06-10 21:05:00 [address] [facility] Body weight 2021-06-10 21:05:00 128.595 kg [facility] BMI 2021-06-10 21:05:00 53.57 kg/m2 [facility] Oxygen saturation in 2021-06-10 21:05:00 94 /min [facility] blood by [facility] Pulse oximetry Branch BP Systolic 2021-12-25 10:28:00 BP Diastolic 2021-12-25 10:28:00 Weight Measured 2021-12-25 10:28:00 285.80 pounds Height Measured 2021-12-25 10:28:00 63.00 inches Body Temperature 2021-12-25 10:28:00 Heart Rate 2021-12-25 10:28:00 Respiratory Rate 2021-12-25 10:28:00 BP Systolic 2021-11-25 09:11:00 120 mm[Hg] BP Diastolic 2021-11-25 09:11:00 81 mm[Hg] Weight Measured 2021-11-25 09:11:00 285.80 pounds Height Measured 2021-11-25 09:11:00 63.00 inches Body Temperature 2021-11-25 09:11:00 97.90 degrees Heart Rate 2021-11-25 09:11:00 69.00 /min Respiratory Rate 2021-11-25 09:11:00 16.00 /min BP Systolic 2021-11-12 16:44:00 123 mm[Hg] BP Diastolic 2021-11-12 16:44:00 77 mm[Hg] Weight Measured 2021-11-12 16:44:00 289.80 pounds Height Measured 2021-11-12 16:44:00 63.00 inches Body Temperature 2021-11-12 16:44:00 98.30 degrees Heart Rate 2021-11-12 16:44:00 73.00 /min Respiratory Rate 2021-11-12 16:44:00 18.00 /min BP Systolic 2021-09-21 10:16:00 138 mm[Hg] BP Diastolic 2021-09-21 10:16:00 90 mm[Hg] Weight Measured 2021-09-21 10:16:00 287.00 pounds Height Measured 2021-09-21 10:16:00 63.00 inches Body Temperature 2021-09-21 10:16:00 98.10 degrees Heart Rate 2021-09-21 10:16:00 77.00 /min Respiratory Rate 2021-09-21 10:16:00 BP Systolic 2021-06-03 16:51:00 136 mm[Hg] BP Diastolic 2021-06-03 16:51:00 77 mm[Hg] Weight Measured 2021-06-03 16:51:00 282.00 pounds Height Measured 2021-06-03 16:51:00 63.00 inches Body Temperature 2021-06-03 16:51:00 98.00 degrees Heart Rate 2021-06-03 16:51:00 80.00 /min Respiratory Rate 2021-06-03 16:51:00 BP Systolic 2021-03-08 17:03:00 136 mm[Hg] BP Diastolic 2021-03-08 17:03:00 78 mm[Hg] Weight Measured 2021-03-08 17:03:00 281.60 pounds Height Measured 2021-03-08 17:03:00 63.00 inches Body Temperature 2021-03-08 17:03:00 97.80 degrees Heart Rate 2021-03-08 17:03:00 71.00 /min Respiratory Rate 2021-03-08 17:03:00 16.00 /min BP Systolic 2021-01-10 15:30:00 147 mm[Hg] BP Diastolic 2021-01-10 15:30:00 90 mm[Hg] Weight Measured 2021-01-10 15:30:00 278.80 pounds Height Measured 2021-01-10 15:30:00 63.00 inches Body Temperature 2021-01-10 15:30:00 98.20 degrees Heart Rate 2021-01-10 15:30:00 69.00 /min Respiratory Rate 2021-01-10 15:30:00 17.00 /min BP Systolic 2020-08-01 09:21:00 138 mm[Hg] BP Diastolic 2020-08-01 09:21:00 79 mm[Hg] Weight Measured 2020-08-01 09:21:00 274.80 pounds Height Measured 2020-08-01 09:21:00 63.00 inches Body Temperature 2020-08-01 09:21:00 98.80 degrees Heart Rate 2020-08-01 09:21:00 78.00 /min Respiratory Rate 2020-08-01 09:21:00 17.00 /min BP Systolic 2020-02-27 16:32:00 141 mm[Hg] BP Diastolic 2020-02-27 16:32:00 81 mm[Hg] Weight Measured 2020-02-27 16:32:00 287.00 pounds Height Measured 2020-02-27 16:32:00 63.00 inches Body Temperature 2020-02-27 16:32:00 98.70 degrees Heart Rate 2020-02-27 16:32:00 66.00 /min Respiratory Rate 2020-02-27 16:32:00 21.00 /min BP Systolic 2020-01-25 09:59:00 149 mm[Hg] BP Diastolic 2020-01-25 09:59:00 84 mm[Hg] Weight Measured 2020-01-25 09:59:00 Height Measured 2020-01-25 09:59:00 Body Temperature 2020-01-25 09:59:00 Heart Rate 2020-01-25 09:59:00 Respiratory Rate 2020-01-25 09:59:00 BP Systolic 2019-07-06 17:37:00 136 mm[Hg] BP Diastolic 2019-07-06 17:37:00 79 mm[Hg] Weight Measured 2019-07-06 17:37:00 269.60 pounds Height Measured 2019-07-06 17:37:00 63.00 inches Body Temperature 2019-07-06 17:37:00 98.00 degrees Heart Rate 2019-07-06 17:37:00 71.00 /min Respiratory Rate 2019-07-06 17:37:00 16.00 /min BP Systolic 2019-03-08 17:14:00 123 mm[Hg] BP Diastolic 2019-03-08 17:14:00 70 mm[Hg] Weight Measured 2019-03-08 17:14:00 272.80 pounds Height Measured 2019-03-08 17:14:00 63.00 inches Body Temperature 2019-03-08 17:14:00 Heart Rate 2019-03-08 17:14:00 64.00 /min Respiratory Rate 2019-03-08 17:14:00 16.00 /min Procedures Procedure Date / Time Performed Performing Clinician Sourc e POCT GLUCOSE 2021-09-25 08:06:00 Michael Mueller [place] [facility] (AUTOMATED) [facility] CT ABDOMEN PELVIS W 2021-09-25 06:00:00 Michael Mueller [facility] CONTRAST [facility] URINALYSIS 2021-09-25 05:32:00 Michael Mueller [facility] LIPASE 2021-09-25 04:22:00 Michael Mueller [facility] TROPONIN I 2021-09-25 04:22:00 Michael Mueller [place] [facility] COMP. METABOLIC PANEL 2021-09-25 04:22:00 Michael Mueller [facility] ([id number]) [facility] CBC WITH DIFF 2021-09-25 04:22:00 Michael Mueller [facility] NOTICE OF PRIVACY 2021-09-25 02:57:58 Doctor Unassigned, No Univ [facility] PRACTICES Name Medical Branch CONSENT/REFUSAL FOR 2021-09-25 02:57:17 [facility] TREATMENT Plan of Care Planned Activity Planned Date Details Comments Source Goal Plan of Care Note [code = 92639-7] Goal Plan of Care Note [code = 45823-4] Goal Plan of Care Note [code = 99821-8] Goal Plan of Care Note [code = 93427-4] Goal Plan of Care Note [code = 89218-9] Goal Plan of Care Note [code = 00797-4] Goal Plan of Care Note [code = 01942-4] Goal Plan of Care Note [code = 96876-8] Goal Plan of Care Note [code = 36844-9] Goal Plan of Care Note [code = 47974-1] Goal Plan of Care Note [code = 95877-6] Goal Plan of Care Note [code = 11775-6] Goal Plan of Care Note [code = 91471-9] Goal Plan of Care Note [code = 68896-3] Goal Plan of Care Note [code = 44159-5] Goal Plan of Care Note [code = 28865-7] Goal Plan of Care Note [code = 21598-2] Goal Plan of Care Note [code = 64310-3] Goal Plan of Care Note [code = 07779-6] Goal Plan of Care Note [code = 61282-9] Goal Plan of Care Note [code = 00789-6] Goal Plan of Care Note [code = 25989-1] Goal Plan of Care Note [code = 89142-6] Goal Plan of Care Note [code = 67729-7] Goal Plan of Care Note [code = 95726-2] Goal Plan of Care Note [code = 45113-6] Goal Plan of Care Note [code = 60483-8] Goal Plan of Care Note [code = 98558-8] Goal Plan of Care Note [code = 72746-9] Goal Plan of Care Note [code = 06398-3] Goal Plan of Care Note [code = 07488-7] Goal Plan of Care Note [code = 23632-5] Goal Plan of Care Note [code = 79212-4] Goal Plan of Care Note [code = 63439-3] Goal Plan of Care Note [code = 76184-4] Goal Plan of Care Note [code = 71404-2] Goal Plan of Care Note [code = 66542-1] Goal Plan of Care Note [code = 82528-2] Goal Plan of Care Note [code = 24141-9] Goal Plan of Care Note [code = 75995-4] Goal Plan of Care Note [code = 52537-6] Goal Plan of Care Note [code = 64477-9] Goal Plan of Care Note [code = 23578-4] Goal Plan of Care Note [code = 94637-4] Goal Plan of Care Note [code = 87554-7] Goal Plan of Care Note [code = 60380-9] Goal Plan of Care Note [code = 84473-7] Goal Plan of Care Note [code = 07711-9] Goal Plan of Care Note [code = 19185-4] Goal Plan of Care Note [code = 93496-2] Goal Plan of Care Note [code = 93578-0] Goal Plan of Care Note [code = 51318-9] Goal Plan of Care Note [code = 44473-0] Goal Plan of Care Note [code = 29191-5] Goal Plan of Care Note [code = 92447-2] Goal Plan of Care Note [code = 56959-7] Goal Plan of Care Note [code = 85896-8] Goal Plan of Care Note [code = 11367-7] Goal Plan of Care Note [code = 86878-6] Goal Plan of Care Note [code = 98513-8] Goal Plan of Care Note [code = 78781-0] Goal Plan of Care Note [code = 92984-5] Goal Plan of Care Note [code = 92915-7] Goal Plan of Care Note [code = 07272-5] Goal Plan of Care Note [code = 76266-1] Goal Plan of Care Note [code = 61025-9] Goal Plan of Care Note [code = 70094-8] Goal Plan of Care Note [code = 85626-7] Goal Plan of Care Note [code = 19563-6] Goal Plan of Care Note [code = 51716-1] Goal Plan of Care Note [code = 83515-8] Goal Plan of Care Note [code = 95359-0] Goal Plan of Care Note [code = 36933-2] Goal Plan of Care Note [code = 21059-2] Goal Plan of Care Note [code = 00151-8] Goal Plan of Care Note [code = 41258-3] Goal Plan of Care Note [code = 11773-7] Goal Plan of Care Note [code = 42412-8] Goal Plan of Care Note [code = 61688-5] Goal Plan of Care Note [code = 60786-8] Goal Plan of Care Note [code = 91467-5] Goal Plan of Care Note [code = 67086-4] Goal Plan of Care Note [code = 37130-3] Goal Plan of Care Note [code = 71064-3] Goal Plan of Care Note [code = 49121-4] Goal Plan of Care Note [code = 99049-8] Goal Plan of Care Note [code = 54614-9] Goal Plan of Care Note [code = 21806-3] Goal Plan of Care Note [code = 28211-2] Goal Plan of Care Note [code = 32051-2] Goal Plan of Care Note [code = 40986-7] Goal Plan of Care Note [code = 09981-5] Goal Plan of Care Note [code = 60875-7] Goal Plan of Care Note [code = 23338-2] Goal Plan of Care Note [code = 46694-0] Goal Plan of Care Note [code = 56458-7] Goal Plan of Care Note [code = 18115-3] Goal Plan of Care Note [code = 66644-2] Goal Plan of Care Note [code = 38572-5] Goal Plan of Care Note [code = 44074-2] Goal Plan of Care Note [code = 13511-2] Goal Plan of Care Note [code = 87733-0] Goal Plan of Care Note [code = 86331-7] Goal Plan of Care Note [code = 08729-4] Goal Plan of Care Note [code = 27147-0] Goal Plan of Care Note [code = 36157-8] Goal Plan of Care Note [code = 55211-3] Goal Plan of Care Note [code = 80555-5] Goal Plan of Care Note [code = 13935-7] Goal Plan of Care Note [code = 95902-8] Goal Plan of Care Note [code = 47926-9] Goal Plan of Care Note [code = 00181-9] Goal Plan of Care Note [code = 14610-6] Goal Plan of Care Note [code = 36984-3] Goal Plan of Care Note [code = 02010-0] Goal Plan of Care Note [code = 52999-7] Goal Plan of Care Note [code = 66376-9] Goal Plan of Care Note [code = 20035-3] Goal Plan of Care Note [code = 75505-0] Goal Plan of Care Note [code = 06978-7] Goal Plan of Care Note [code = 88904-6] Goal Plan of Care Note [code = 22717-7] Goal Plan of Care Note [code = 61184-9] Goal Plan of Care Note [code = 23019-3] Goal Plan of Care Note [code = 70176-7] Goal Plan of Care Note [code = 76449-3] Goal Plan of Care Note [code = 75358-1] Goal Plan of Care Note [code = 52479-5] Goal Plan of Care Note [code = 08108-8] Goal Plan of Care Note [code = 70222-5] Goal Plan of Care Note [code = 32136-7] Goal Plan of Care Note [code = 76194-0] Goal Plan of Care Note [code = 17412-9] Goal Plan of Care Note [code = 30295-9] Goal Plan of Care Note [code = 19416-8] Goal Plan of Care Note [code = 63908-6] Goal Plan of Care Note [code = 35791-1] Goal Plan of Care Note [code = 11036-9] Goal Plan of Care Note [code = 68793-4] Goal Plan of Care Note [code = 90914-3] Goal Plan of Care Note [code = 25474-9] Goal Plan of Care Note [code = 93487-4] Goal Plan of Care Note [code = 77793-4] Goal Plan of Care Note [code = 94188-1] Goal Plan of Care Note [code = 94846-7] Goal Plan of Care Note [code = 24202-8] Goal Plan of Care Note [code = 48299-2] Goal Plan of Care Note [code = 28309-7] Goal Plan of Care Note [code = 73689-4] Goal Plan of Care Note [code = 87115-8] Goal Plan of Care Note [code = 63127-9] Goal Plan of Care Note [code = 64244-0] Goal Plan of Care Note [code = 11055-8] Goal Plan of Care Note [code = 24716-0] Goal Plan of Care Note [code = 15106-0] Goal Plan of Care Note [code = 72349-7] Goal Plan of Care Note [code = 95604-2] Goal Plan of Care Note [code = 69817-6] Goal Plan of Care Note [code = 57002-7] Goal Plan of Care Note [code = 94404-2] Goal Plan of Care Note [code = 85921-1] Goal Plan of Care Note [code = 16474-1] Goal Plan of Care Note [code = 22817-6] Goal Plan of Care Note [code = 97894-3] Goal Plan of Care Note [code = 88419-2] Goal Plan of Care Note [code = 65196-1] Goal Plan of Care Note [code = 78801-9] Goal Plan of Care Note [code = 74746-5] Goal Plan of Care Note [code = 22557-7] Goal Plan of Care Note [code = 13498-8] Goal Plan of Care Note [code = 82405-2] Goal Plan of Care Note [code = 75124-3] Goal Plan of Care Note [code = 98730-1] Goal Plan of Care Note [code = 97119-3] Goal Plan of Care Note [code = 93360-5] Goal Plan of Care Note [code = 09886-3] Goal Plan of Care Note [code = 71023-0] Goal Plan of Care Note [code = 03133-7] Goal Plan of Care Note [code = 84757-5] Goal Plan of Care Note [code = 71586-9] Goal Plan of Care Note [code = 94550-7] Goal Plan of Care Note [code = 26758-7] Goal Plan of Care Note [code = 98092-1] Goal Plan of Care Note [code = 97192-6] Goal Plan of Care Note [code = 47464-3] Goal Plan of Care Note [code = 90586-3] Goal Plan of Care Note [code = 32562-8] Goal Plan of Care Note [code = 77905-5] Goal Plan of Care Note [code = 65103-6] Goal Plan of Care Note [code = 78539-7] Goal Plan of Care Note [code = 58949-2] Goal Plan of Care Note [code = 82758-7] Goal Plan of Care Note [code = 92773-1] Goal Plan of Care Note [code = 60890-0] Goal Plan of Care Note [code = 76135-3] Goal Plan of Care Note [code = 55693-7] Goal Plan of Care Note [code = 93400-4] Goal Plan of Care Note [code = 49123-5] Goal Plan of Care Note [code = 47243-7] Goal Plan of Care Note [code = 15953-1] Goal Plan of Care Note [code = 24187-4] Goal Plan of Care Note [code = 93710-9] Goal Plan of Care Note [code = 29632-0] Goal Plan of Care Note [code = 51969-8] Goal Plan of Care Note [code = 48278-4] Goal Plan of Care Note [code = 01011-9] Goal Plan of Care Note [code = 95657-6] Goal Plan of Care Note [code = 56065-0] Goal Plan of Care Note [code = 94841-0] Goal Plan of Care Note [code = 34564-8] Goal Plan of Care Note [code = 61950-7] Goal Plan of Care Note [code = 21615-4] Goal Plan of Care Note [code = 02941-8] Goal Plan of Care Note [code = 60301-2] Goal Plan of Care Note [code = 56328-1] Goal Plan of Care Note [code = 65583-4] Goal Plan of Care Note [code = 73376-2] Goal Plan of Care Note [code = 67007-0] Goal Plan of Care Note [code = 37711-1] Goal Plan of Care Note [code = 88325-0] Goal Plan of Care Note [code = 55083-3] Goal Plan of Care Note [code = 49921-9] Goal Plan of Care Note [code = 19977-9] Goal Plan of Care Note [code = 59874-9] Goal Plan of Care Note [code = 61649-8] Goal Plan of Care Note [code = 54442-4] Goal Plan of Care Note [code = 69491-2] Goal Plan of Care Note [code = 69163-0] Goal Plan of Care Note [code = 52509-4] Goal Plan of Care Note [code = 20797-7] Goal Plan of Care Note [code = 31071-1] Goal Plan of Care Note [code = 89354-0] Goal Plan of Care Note [code = 76905-8] Goal Plan of Care Note [code = 43923-5] Goal Plan of Care Note [code = 51086-9] Goal Plan of Care Note [code = 73132-3] Goal Plan of Care Note [code = 63634-0] Goal Plan of Care Note [code = 46174-1] Goal Plan of Care Note [code = 39849-2] Goal Plan of Care Note [code = 08093-2] Goal Plan of Care Note [code = 01050-3] Goal Plan of Care Note [code = 97998-3] Goal Plan of Care Note [code = 85442-6] Goal Plan of Care Note [code = 22882-8] Goal Plan of Care Note [code = 93529-6] Goal Plan of Care Note [code = 06108-6] Goal Plan of Care Note [code = 88042-3] Goal Plan of Care Note [code = 10310-5] Encounters Start End Encounter Admission Attending Care Care Encounter Source Date/Time Date/Time Type Type Clinicians Facility Department ID 2022-08-07 2022-08-07 Outpatient SFA SFA [id number] 023 Jose 16:55:08 16:55:08 0330 F [place] 2022-03-03 2022-03-03 Outpatient SFA SFA 75812-3 022 Jose 15:47:22 15:47:22 1024 F [place] 2022-01-07 2022-01-07 Outpatient o112w21x- [id number] 18c87o-9 00:00:00 00:00:00 Visit 0lp9-36n8 cf3-49f4-8 -8008-524 008-524cd8 ju215w146 55m538 2021-12-25 2021-12-25 Outpatient 2z32vkem- [id number] 5d 79cbdc-b 00:00:00 00:00:00 Visit d004-3f82 376-4b03-8 -888a-a7f 88a-a7fd72 k11m003f5 f381a6 2021-12-19 2021-12-19 Outpatient 27d70ei2- [id number] w87ie8-4 00:00:00 00:00:00 Visit 3n7y-0n75 v9w-1b97-y -z6nv-w18 7eb-u4830a 24rc91ag3 b09eb1 2021-11-29 2021-11-29 Outpatient r4mg4rdp- [id number] f7 oq3iiw-q 00:00:00 00:00:00 Visit vf95-5n36 k67-2v00-r -h309-989 668-606d7d b2p58r396 85d922 2021-11-25 2021-11-25 Outpatient t7029n34- [id number] e1 623t16-t 00:00:00 00:00:00 Visit eef8-4b44 ef8-4b44-9 -9461-546 461-5467e6 2e049070x 80488f 2021-11-12 2021-11-12 Outpatient 43x0v31n- [id number] p6c74x-9 00:00:00 00:00:00 Visit 59v1-264g 9x9-283c-5 -828d-8bb 28d-8bbec0 qx278td3k 99ae7d 2021-11-07 2021-11-07 Outpatient R DILCIA [facility] [id number] Univers 08:30:00 08:30:[address] [facility] 2021-09-24 2021-09-25 Emergency X [facility] ERT [id number] Univers 22:32:00 03:49:00 MICHAEL ity [facility] 2021-09-24 2021-09-25 Emergency [facility] [id number] Univers 22:32:00 03:49:00 Michael FREEMAN 350.1.13.10 i ty [facility] [place] [phone] [place] [address] [place] 2021-08-06 2021-08-06 [facility] [id number] [id number] Univers 00:00:00 00:00:00 Evaristo FREEMAN 350.1.13.10 ity [facility] [place] [id number] Ca dical [facility]9 [facility] 2021-07-09 2021-07-09 Outpatient R [facility] [id number] Univers 13:00:00 13:00[facility] 2021-07-01 2021-07-01 [facility] [id number] Univers 10:30:00 10:30:[address] [facility] 2021-06-30 2021-06-30 Telephone [facility] 1.2.840.114 [id number] Univers 00:00:00 00:00:00 Cheryl Alvarez PROFESSOR OF PHYSICAL EDUCATION 350.1.13.10 ity [facility] 4.2.7.2.686 [place] as MATERNAL [phone] Med ical & CHILD [address] [place] [address] 2021-06-10 2021-06-10 [facility] [id number] Univers 15:20:00 15:31:[address] [facility] 2021-06-10 2021-06-10 Office [facility] 1.2.840.114 [id number] Univers 15:20:00 15:31:06 Visit Evaristo FREEMAN 350.1.13.10 ity of [place] [phone] [place] [address] [facility] 2021-06-10 2021-06-10 Orders Doctor JACOBY 1.2.840.114 [id number] Univers 00:00:00 00:00:00 Only Unassigned, THIERNO 350.1.13.10 ity of [place] [facility] 4.2.7.2.686 [place] as [phone] [facility] 009 [place] 2021-04-26 2021-04-27 [facility]US [id number] Univers 10:18:00 16:12:00 [facility] 2021-04-26 2021-04-27 [facility] [id number] Univers 10:18:00 16:12:00 [place] [facility] 2021-04-26 2021-04-27 Emergency Mitra Barajas [facility] 1.2.840 .114 [id number] Univers 10:18:00 16:12:00 Charlotte Murphy 350.1.13.10 it[place] [phone] [facility] 081 [place] 2020-12-13 2020-12-13 Outpatient Josue AG [facility] [id number] Univers 15:00:00 15:09:50 REBEKA casey [facility] 2020-11-22 2020-11-22 Outpatient Josue AG [facility] [id number] Univers 15:20:00 15:09:34 REBEKA [facility] 2019-01-05 2019-01-05 Emergency [facility] 1.2.273.880 [id number] Univers 22:28:10 23:35:00 Anni Freeman 350.1.13.10 i [place] [phone] [facility] [address]84 [place] 2018-12-14 2018-12-14 [facility] Dilcia [facility] 1.2.840.114 [id number] [facility] 06:51:33 23:59:00 Encounter Soumya Josue SPECIALTY 350.1.13.10 ity of CARE 4.2.7.2.686 [facility] AT [phone] Ca dicmeghana KAUR 815 [facility] Results Test Description Test Time Test Comments Results Result Comments Source H. PYLORI (BREATH) 2022-03-05 15:23:05 Test Item Value Reference Range Interpretation Comme nts H. PYLORI (BREATH) (test code NEGATIVE NEGATIVE UNLESS OTHERWISE INDICATED, ALL = 48622) TESTING PERFORM ED ATCLINICAL PATHOLOGY [employer]. [address] [place] [address] FIRE EQUIPMENT INSPECTOR: RAMIREZ CERON M.D. CLIA NUMBER [id number] CAP ACCREDITATION N O. [id number] CBC W/AUTO DIFF WITH [id number] 05:19:43 Test Item Value Reference Range Interpretation Comments WBC (test code = 6.7 K/UL 3.5-11.0 1001) RBC (test code = 5.00 M/UL 3.80-5.40 1002) HEMOGLOBIN (test code 15.5 G/DL 11.5-15.5 = 1003) HEMATOCRIT (test code 44.5 % 34.0-45.0 = 1004) MCV (test code = 89.0 fL 80.0-99.0 1005) MCH (test code = 31.0 PG 25.0-33.0 1006) MCHC (test code = 34.8 G/DL 31.0-36.0 1007) RDW (test code = 13.6 % 11.5-15.0 1038) NEUTROPHILS (test 52.4 % code = 1008) LYMPHOCYTES (test 37.6 % code = 1010) MONOCYTES (test code 6.6 % = 1011) EOSINOPHILS (test 2.2 % code = 1012) BASOPHILS (test code 0.9 % = 1013) IMMATURE GRANULOCYTES 0.3 % (test code = 1036) NUCLEATED RBCS (test 0.0 /100 WBC'S See_Comment [Aut omated code = 1065) message] The sy stem which generated this result transmitted reference range : 0.0. The refere nce range was not u sed to interpret th is result as normal/abnormal . PLATELET COUNT (test 213 K/UL 130-400 code = 1015) ABSOLUTE NEUTROPHILS 3.52 K/UL 1.50-7.50 (test code = 1066) ABSOLUTE LYMPHOCYTES 2.52 K/UL 1.00-4.00 (test code = 1067) ABSOLUTE MONOCYTES 0.44 K/UL 0.20-1.00 (test code = 1068) ABSOLUTE EOSINOPHILS 0.15 K/UL 0.00-0.50 (test code = 1040) ABSOLUTE BASOPHILS 0.06 K/UL 0.00-0.20 (test code = 1069) ABS IMMATURE 0.02 K/UL 0.00-0.10 GRANULOCYTES (test code = 1020) ABS NUCLEATED RBCS 0.04 K/UL 0.00-0.11 (test code = 41476) POCT GLUCOSE (AUTOMATED)2021-09-25 08:08:54 Test Item Value Reference Range Interpretation Comments POCT GLU (test code = 2670051255) 102 mg/dL 70-110 Lab Interpretation (test code = Normal 63391-7) [id number] 05:03:02 Test Item Value Reference Interpretation Comments Range TROPONIN I (test 0.001 ng/mL See_Comment [Automated code = 6662707799) message] The system which generated this result transmitted reference range : <=0.034. The reference range was not used to interpret this result as normal/abnormal . MARY (test code = Reference (Normal) MARY) Range (defined by the 99th percentile reference limit): <= 0.034 ng/mL Note: Cardiac troponin begins to rise 3-4 hours after the onset of ischemia. Repeat in 4-6 hours if the sample was drawn within 3-4 hours of the onset of the symptom and found normal. Diagnosis of myocardial injury is made with acute changes in cTn concentrations with at least one serial sample above the 99th percentile upper reference limit (URL), taken together with the patient's clinical presentation. Biotin has been reported to cause a negative bias, interpret results relative to patient's use of biotin. Lab Interpretation Normal (test code = 24066-7) [facility]. METABOLIC PANEL (24352)2021-09-25 04:52:19 Test Item Value Reference Range Interpretation Comments NA (test code = 140 mmol/L 135-145 2467388742) K (test code = 4.5 mmol/L 3.5-5.0 5816105796) CL (test code = 103 mmol/L 98-108 3220211266) CO2 TOTAL (test code = 25 mmol/L 23-31 5429276834) AGAP (test code = 2-16 0057465925) BUN (test code = 13 mg/dL 7-23 0709273161) GLUCOSE (test code = 141 mg/dL 70-110 H 4490144474) CREATININE (test code = 0.60 mg/dL 0.50-1.04 8527007997) TOTAL BILI (test code = 0.6 mg/dL 0.1-1.7 5358419013) CALCIUM (test code = 9.4 mg/dL 8.6-10.6 4058868329) T PROTEIN (test code = 8.1 g/dL 6.3-8.2 8240507612) ALBUMIN (test code = 4.7 g/dL 3.5-5.0 5531472299) ALK PHOS (test code = 98 U/L 34-122 0853011408) ALTv (test code = 25 U/L 5-35 1742-6) AST(SGOT) (test code = 27 U/L 13-40 0328641718) eGFR (test code = mL/min/1.73m2 2357417806) MARY (test code = MARY) Association of Glomerular Filtration Rate (GFR) and Staging of Kidney Disease* + --+ --+ ------+| GFR (mL/min/1.73 m2) ?| With Kidney Damage ?| ?Without Kidney Damage+ --------+ --------+ +| ?>90 ?| ?Stage one ?| ? Normal ?+ ---+ ---+ -------+| ?60-89 ?| ?Stage two ?| ? Decreased GFR ? + --+ --+ ------+| ?30-59 ?| ?Stage three ?| ? Stage three ? + --+ --+ ------+| ?15-29 ?| ?Stage four ? | ? Stage four ?+ ---+ ---+ -------+| ?<15 (or dialysis) ? ?| ?Stage five ? | ? Stage five ?+ ---+ ---+ -------+ *Each stage assumes the associated GFR level has been in effect for at least three months. ?Stages 1 to 5, with or without kidney disease, indicate chronic kidney disease. Notes: Determination of stages one and two (with eGFR >59mL/min/1.73 m2) requires estimation of kidney damage for at least three months as defined by structural or functional abnormalities of the kidney, manifested by either:Pathological abnormalities or Markers of kidney damage (including abnormalities in the composition of the blood or urine or abnormalities in imaging tests). Lab Interpretation Abnormal (test code = 11822-4) [facility] 04:51:39 Test Item Value Reference Range Interpretation Comments LIPASE (test code = 4318650706) 118 U/L 0-220 Lab Interpretation (test code = Normal 85572-0) [facility] WITH [id number] 04:38:15 Test Item Value Reference Range Interpretation Comments WBC (test code = See_Comment H [Automated 6690-2) message] The system which generated this result transmit alesha reference range : 4.30 - 11.10 10*3/?L. The reference range was not used to interpret this result as normal/abnormal . RBC (test code = See_Comment H [Automated 229-8) message] The system which generated this result transmit alesha reference range : 3.93 - 5.25 10*6/?L. The reference range was not used to interpret this result as normal/abnormal . HGB (test code = 16.9 g/dL 11.6-15.0 H 718-7) HCT (test code = 49.7 % 35.7-45.2 H 4544-3) MCV (test code = 88.9 fL 80.6-95.5 787-2) MCH (test code = 30.2 pg 25.9-32.8 785-6) MCHC (test code = 34.0 g/dL 31.6-35.1 786-4) RDW-SD (test code = 41.5 fL 39.0-49.9 71299-7) RDW-CV (test code = 12.8 % 12.0-15.5 788-0) PLT (test code = See_Comment [Automated 777-3) message] The system which generated this result transmit alesha reference range : 166 - 358 10*3/ ?L. The reference range was not u sed to interpret th is result as normal/abnormal . MPV (test code = 11.7 fL 9.5-12.9 19866-9) NRBC/100 WBC (test See_Comment [Automat ed code = 0391959436) message] The system which generated this result transmit alesha reference range : 0.0 - 10.0 /100 WBCs. The reference range was not used to interpret this result as normal/abnormal . NRBC x10^3 (test code <0.01 See_Comment [Auto mated = 7165030071) message] The system which generated this result transmit alesha reference range : 10*3/?L. The reference range was not used to interpret this result as normal/abnormal . GRAN MAT (NEUT) % 78.8 % (test code = 770-8) IMM GRAN % (test code 0.30 % = 8128552023) LYMPH % (test code = 14.7 % 736-9) MONO % (test code = 5.0 % 5905-5) EOS % (test code = 0.6 % 713-8) BASO % (test code = 0.6 % 706-2) GRAN MAT x10^3(ANC) 10.01 10*3/uL 1.88-7.09 H (test code = 2789277009) IMM GRAN x10^3 (test 0.04 10*3/uL 0.00-0.06 code = 2522693937) LYMPH x10^3 (test code 1.86 10*3/uL 1.32-3.29 = 731-0) MONO x10^3 (test code 0.63 10*3/uL 0.33-0.92 = 742-7) EOS x10^3 (test code = 0.08 10*3/uL 0.03-0.39 711-2) BASO x10^3 (test code 0.07 10*3/uL 0.01-0.07 = 704-7) Lab Interpretation Abnormal (test code = 92815-3) [facility] RE[facility]LEX AUTOIMMUNE AB [id number] 08:39:16 Test Item Value Reference Range Interpretation Comments ANTI-NUCLEAR NEGATIVE NEGATIVE Methodology i s Indirect ANTIBODIES (test Immunofluor escent Assay code = 3506) (IFA) with a Kangou system using He p2000 cells (Hep2 cells tra nsfected with SS-A/Ro). HIV 1/2 4TH GEN, RFLX [id number] 03:26:41 Test Item Value Reference Range Interpretation Comments HIV 1/2 4TH GEN, NON-REACTIVE NON-REACTIVE UNLESS OTH ERWISE RFLX CONF (test INDICATED, A LL TESTING code = 3514) [facility] NICNC PATHOLOGY [facility] [employer] [address] [place], [place] [address] [place] [address] DIRECTOR: RAMIREZ CERON M.D. CLIA NUMBER [id number] CAP ACCREDITATION N O. [id number] [place] [facility] [employer] [id number] 00:00:00 Test Item Value Reference Range Interpretation Comments ANTI-NUCLEAR ANTIBODIES (test code = NEGATIVE 3506) [place] [facility] [id number] 00:00:00 Test Item Value Reference Range Interpretation Comments ANTI-NUCLEAR ANTIBODIES (test code = NEGATIVE 3506) HIV AB/AG COMBO RFLX [id number] 00:00:00 Test Item Value Reference Range Interpretation Comments HIV 1/2 4TH GEN, RFLX CONF (test NON-REACTIVE code = 3514) HIV AB/AG COMBO RFLX [id number] 00:00:00 Test Item Value Reference Range Interpretation Comments HIV 1/2 4TH GEN, RFLX CONF (test NON-REACTIVE code = 3514) [place] [facility] [employer] [id number] 00:00:00 Test Item Value Reference Range Interpretation Comments ANTI-NUCLEAR ANTIBODIES (test code = NEGATIVE 3506) [place] [facility] [employer] AB [id number] 00:00:00 Test Item Value Reference Range Interpretation Comments ANTI-NUCLEAR ANTIBODIES (test code = NEGATIVE 3506) HIV AB/AG COMBO RFLX [id number] 00:00:00 Test Item Value Reference Range Interpretation Comments HIV 1/2 4TH GEN, RFLX CONF (test NON-REACTIVE code = 3514) HIV AB/AG COMBO RFLX [id number] 00:00:00 Test Item Value Reference Range Interpretation Comments HIV 1/2 4TH GEN, RFLX CONF (test NON-REACTIVE code = 3514) [place] [facility] [employer] AB [id number] 00:00:00 Test Item Value Reference Range Interpretation Comments ANTI-NUCLEAR ANTIBODIES (test code = NEGATIVE 3506) [place] REFLEX AUT[employer]IMMUNE AB [id number] 00:00:00 Test Item Value Reference Range Interpretation Comments ANTI-NUCLEAR ANTIBODIES (test code = NEGATIVE 3506) HIV AB/AG COMBO RFLX [id number] 00:00:00 Test Item Value Reference Range Interpretation Comments HIV 1/2 4TH GEN, RFLX CONF (test NON-REACTIVE code = 3514) HIV AB/AG COMBO RFLX [id number] 00:00:00 Test Item Value Reference Range Interpretation Comments HIV 1/2 4TH GEN, RFLX CONF (test NON-REACTIVE code = 3514) [place] RE[employer]LEX [employer]IMMUNE AB [id number] 00:00:00 Test Item Value Reference Range Interpretation Comments ANTI-NUCLEAR ANTIBODIES (test code = NEGATIVE 3506) HIV AB/AG COMBO RFLX [id number] 00:00:00 Test Item Value Reference Range Interpretation Comments HIV 1/2 4TH GEN, RFLX CONF (test NON-REACTIVE code = 3514) [place] RE[employer]LEX [employer]E AB [id number] 00:00:00 Test Item Value Reference Range Interpretation Comments ANTI-NUCLEAR ANTIBODIES (test code = NEGATIVE 3506) HIV AB/AG COMBO RFLX [id number] 00:00:00 Test Item Value Reference Range Interpretation Comments HIV 1/2 4TH GEN, RFLX CONF (test NON-REACTIVE code = 3514) [place] [facility] AB [id number] 00:00:00 Test Item Value Reference Range Interpretation Comments ANTI-NUCLEAR ANTIBODIES (test code = NEGATIVE 3506) HIV AB/AG COMBO RFLX [id number] 00:00:00 Test Item Value Reference Range Interpretation Comments HIV 1/2 4TH GEN, RFLX CONF (test NON-REACTIVE code = 3514) TSH, THIRD [id number] 02:23:43 Test Item Value Reference Range Interpretation Comments TSH, THIRD GENERATION (test code 3.790 UIU/ML 0.400-4.100 = 2821) RHEUMATOID FACTOR, [id number] 02:15:22 Test Item Value Reference Range Interpretation Comments RHEUMATOID FACTOR, QUANT (test code <10 IU/ML <14 = 3502) LIPID [id number] 02:15:07 Test Item Value Reference Range Interpretation Comments CHOLESTEROL (test 215 MG/DL <200 H code = 2210) TRIGLYCERIDES (test 187 MG/DL <150 H code = 2232) HDL CHOLESTEROL (test 48 MG/DL >39 code = 2220) CALC LDL CHOL (test 135 MG/DL <100 H NOTE: C ALCULATED LDL code = 2237) IS BASED ON ERICKA-SINGH METHOD WHICHINCLUDES ADJUSTABLE TRIGLYCERIDE:VL DL CHOLESTEROL RAT IO.THIS FACTOR VARIES B Y MEASURED TRIGLY CERIDE AND NON-HDLCHOL ESTEROL CONCENTRATIONS WITH INCREASED CALCU LATED LDL SEENIN HIGH ER TRIGLYCERIDE OR LOWER NON-HDL SPECIME NS. FOR MOREINFORMATION , SEE CLIENT ANNOUNCE MENT AT [email or web address] LDL/HDL 2.81 RATIO <3.22 (test code = 2238) COMPREHENSIVE METABOLIC [id number] 02:15:07 Test Item Value Reference Range Interpretation Comments GLUCOSE (test code = 98 MG/DL 70-99 2216) BUN (test code = 9 MG/DL 6-20 2207) CREATININE (test 0.61 MG/DL 0.60-1.30 code = 2214) eGFR (2020 CKD-EPI) 105 >60 (test code = 50560) ML/MIN/1.73 CALC BUN/CREAT (test 15 RATIO 6-28 code = 2235) SODIUM (test code = 142 MEQ/L [phone]) POTASSIUM (test code 4.4 MEQ/L 3.5-5.4 = 2227) CHLORIDE (test code 103 MEQ/L 95-107 = 2215) CARBON DIOXIDE (test 20 MEQ/L 19-31 code = 2206) CALCIUM (test code = 9.7 MG/DL 8.5-10.5 2208) PROTEIN, TOTAL (test 7.5 G/DL 6.1-8.3 code = 222) ALBUMIN (test code = 4.3 G/DL 3.5-5.2 2200) CALC GLOBULIN (test 3.2 G/DL 1.9-3.7 code = 2240) CALC A/G RATIO (test 1.3 RATIO 1.0-2.6 code = 2234) BILIRUBIN, TOTAL 0.6 MG/DL See_Comment [Automated message] (test code = 2207) The syste m which generated this result transmit alesha reference range : <=1.2. The refe rence range was not u sed to interpret th is result as normal/abnormal . ALKALINE PHOSPHATASE 97 U/L 40-136 (test code = 2204) AST (test code = 19 U/L 9-40 2217) ALT (test code = 25 U/L 5-40 2218) COMPREHENSIVE METABOLIC [id number] 00:00:00 Test Item Value Reference Range Interpretation Comments GLUCOSE (test code = 2217) 98 MG/DL BUN (test code = 2208) 9 MG/DL CREATININE (test code = 2214) 0.61 MG/DL eGFR (2020 CKD-EPI) (test 105 ML/MIN/1.73 code = 08453) CALC BUN/CREAT (test code = 15 RATIO 5) SODIUM (test code = 2231) 142 MEQ/L POTASSIUM (test code = 2228) 4.4 MEQ/L CHLORIDE (test code = 2215) 103 MEQ/L CARBON DIOXIDE (test code = 20 MEQ/L 2205) CALCIUM (test code = 2209) 9.7 MG/DL PROTEIN, TOTAL (test code = 7.5 G/DL 2228) ALBUMIN (test code = 2201) 4.3 G/DL CALC GLOBULIN (test code = 3.2 G/DL 0) CALC A/G RATIO (test code = 1.3 RATIO 2233) BILIRUBIN, TOTAL (test code = 0.6 MG/DL 2206) ALKALINE PHOSPHATASE (test 97 U/L code = 2204) AST (test code = 2218) 19 U/L ALT (test code = 2219) 25 U/L RHEUMATOID FACTOR, [id number] 00:00:00 Test Item Value Reference Range Interpretation Comments RHEUMATOID FACTOR, QUANT (test code <10 IU/ML = 3502) RHEUMATOID FACTOR, [id number] 00:00:00 Test Item Value Reference Range Interpretation Comments RHEUMATOID FACTOR, QUANT (test code <10 IU/ML = 3502) RHEUMATOID FACTOR, [id number] 00:00:00 Test Item Value Reference Range Interpretation Comments RHEUMATOID FACTOR, QUANT (test code <10 IU/ML = 3502) [id number] 00:00:00 Test Item Value Reference Range Interpretation Comments TSH, THIRD GENERATION (test code 3.790 UIU/ML = 2821) [id number] 00:00:00 Test Item Value Reference Range Interpretation Comments TSH, THIRD GENERATION (test code 3.790 UIU/ML = 2821) [id number] 00:00:00 Test Item Value Reference Range Interpretation Comments TSH, THIRD GENERATION (test code 3.790 UIU/ML = 2821) LIPID [id number] 00:00:00 Test Item Value Reference Range Interpretation Comments CHOLESTEROL (test code = 2210) 215 MG/DL TRIGLYCERIDES (test code = 2232) 187 MG/DL HDL CHOLESTEROL (test code = 2220) 48 MG/DL CALC LDL CHOL (test code = 2237) 135 MG/DL RISK RATIO LDL/HDL (test code = 2.81 RATIO 2238) LIPID [id number] 00:00:00 Test Item Value Reference Range Interpretation Comments CHOLESTEROL (test code = 2210) 215 MG/DL TRIGLYCERIDES (test code = 2232) 187 MG/DL HDL CHOLESTEROL (test code = 2220) 48 MG/DL CALC LDL CHOL (test code = 2237) 135 MG/DL RISK RATIO LDL/HDL (test code = 2.81 RATIO 2238) COMPREHENSIVE METABOLIC [id number] 00:00:00 Test Item Value Reference Range Interpretation Comments GLUCOSE (test code = 2217) 98 MG/DL BUN (test code = 2208) 9 MG/DL CREATININE (test code = 2214) 0.61 MG/DL eGFR (2020 CKD-EPI) (test 105 ML/MIN/1.73 code = 89976) CALC BUN/CREAT (test code = 15 RATIO 2235) SODIUM (test code = 2231) 142 MEQ/L POTASSIUM (test code = 2228) 4.4 MEQ/L CHLORIDE (test code = 2215) 103 MEQ/L CARBON DIOXIDE (test code = 20 MEQ/L 2205) CALCIUM (test code = 2209) 9.7 MG/DL PROTEIN, TOTAL (test code = 7.5 G/DL 2228) ALBUMIN (test code = 2201) 4.3 G/DL CALC GLOBULIN (test code = 3.2 G/DL 2240) CALC A/G RATIO (test code = 1.3 RATIO 2234) BILIRUBIN, TOTAL (test code = 0.6 MG/DL 2206) ALKALINE PHOSPHATASE (test 97 U/L code = 2204) AST (test code = 2218) 19 U/L ALT (test code = 2219) 25 U/L COMPREHENSIVE METABOLIC [id number] 00:00:00 Test Item Value Reference Range Interpretation Comments GLUCOSE (test code = 2217) 98 MG/DL BUN (test code = 2208) 9 MG/DL CREATININE (test code = 2214) 0.61 MG/DL eGFR (2020 CKD-EPI) (test 105 ML/MIN/1.73 code = 09608) CALC BUN/CREAT (test code = 15 RATIO 2235) SODIUM (test code = 2231) 142 MEQ/L POTASSIUM (test code = 2228) 4.4 MEQ/L CHLORIDE (test code = 2215) 103 MEQ/L CARBON DIOXIDE (test code = 20 MEQ/L 2205) CALCIUM (test code = 2209) 9.7 MG/DL PROTEIN, TOTAL (test code = 7.5 G/DL 2228) ALBUMIN (test code = 2201) 4.3 G/DL CALC GLOBULIN (test code = 3.2 G/DL 2240) CALC A/G RATIO (test code = 1.3 RATIO 2234) BILIRUBIN, TOTAL (test code = 0.6 MG/DL 2206) ALKALINE PHOSPHATASE (test 97 U/L code = 2204) AST (test code = 2218) 19 U/L ALT (test code = 2219) 25 U/L RHEUMATOID FACTOR, [id number] 00:00:00 Test Item Value Reference Range Interpretation Comments RHEUMATOID FACTOR, QUANT (test code <10 IU/ML = 3502) RHEUMATOID FACTOR, [id number] 00:00:00 Test Item Value Reference Range Interpretation Comments RHEUMATOID FACTOR, QUANT (test code <10 IU/ML = 3502) RHEUMATOID FACTOR, [id number] 00:00:00 Test Item Value Reference Range Interpretation Comments RHEUMATOID FACTOR, QUANT (test code <10 IU/ML = 3502) [id number] 00:00:00 Test Item Value Reference Range Interpretation Comments TSH, THIRD GENERATION (test code 3.790 UIU/ML = 2821) [id number] 00:00:00 Test Item Value Reference Range Interpretation Comments TSH, THIRD GENERATION (test code 3.790 UIU/ML = 2821) [id number] 00:00:00 Test Item Value Reference Range Interpretation Comments TSH, THIRD GENERATION (test code 3.790 UIU/ML = 2821) LIPID [id number] 00:00:00 Test Item Value Reference Range Interpretation Comments CHOLESTEROL (test code = 2210) 215 MG/DL TRIGLYCERIDES (test code = 2232) 187 MG/DL HDL CHOLESTEROL (test code = 2220) 48 MG/DL CALC LDL CHOL (test code = 2237) 135 MG/DL RISK RATIO LDL/HDL (test code = 2.81 RATIO 2238) LIPID [id number] 00:00:00 Test Item Value Reference Range Interpretation Comments CHOLESTEROL (test code = 2210) 215 MG/DL TRIGLYCERIDES (test code = 2232) 187 MG/DL HDL CHOLESTEROL (test code = 2220) 48 MG/DL CALC LDL CHOL (test code = 2237) 135 MG/DL RISK RATIO LDL/HDL (test code = 2.81 RATIO 2238) COMPREHENSIVE METABOLIC [id number] 00:00:00 Test Item Value Reference Range Interpretation Comments GLUCOSE (test code = 2217) 98 MG/DL BUN (test code = 2208) 9 MG/DL CREATININE (test code = 2214) 0.61 MG/DL eGFR (2020 CKD-EPI) (test 105 ML/MIN/1.73 code = 21273) CALC BUN/CREAT (test code = 15 RATIO 2235) SODIUM (test code = 2231) 142 MEQ/L POTASSIUM (test code = 2228) 4.4 MEQ/L CHLORIDE (test code = 2215) 103 MEQ/L CARBON DIOXIDE (test code = 20 MEQ/L 2205) CALCIUM (test code = 2209) 9.7 MG/DL PROTEIN, TOTAL (test code = 7.5 G/DL 2228) ALBUMIN (test code = 220) 4.3 G/DL CALC GLOBULIN (test code = 3.2 G/DL 2239) CALC A/G RATIO (test code = 1.3 RATIO 2234) BILIRUBIN, TOTAL (test code = 0.6 MG/DL 2206) ALKALINE PHOSPHATASE (test 97 U/L code = 2204) AST (test code = 2218) 19 U/L ALT (test code = 2219) 25 U/L COMPREHENSIVE METABOLIC [id number] 00:00:00 Test Item Value Reference Range Interpretation Comments GLUCOSE (test code = 2217) 98 MG/DL BUN (test code = 2208) 9 MG/DL CREATININE (test code = 2214) 0.61 MG/DL eGFR (2020 CKD-EPI) (test 105 ML/MIN/1.73 code = 91743) CALC BUN/CREAT (test code = 15 RATIO 2235) SODIUM (test code = 2231) 142 MEQ/L POTASSIUM (test code = 2228) 4.4 MEQ/L CHLORIDE (test code = 2215) 103 MEQ/L CARBON DIOXIDE (test code = 20 MEQ/L 2205) CALCIUM (test code = 2209) 9.7 MG/DL PROTEIN, TOTAL (test code = 7.5 G/DL 2228) ALBUMIN (test code = 2201) 4.3 G/DL CALC GLOBULIN (test code = 3.2 G/DL 2239) CALC A/G RATIO (test code = 1.3 RATIO 2233) BILIRUBIN, TOTAL (test code = 0.6 MG/DL 2206) ALKALINE PHOSPHATASE (test 97 U/L code = 2204) AST (test code = 2218) 19 U/L ALT (test code = 2219) 25 U/L RHEUMATOID FACTOR, [id number] 00:00:00 Test Item Value Reference Range Interpretation Comments RHEUMATOID FACTOR, QUANT (test code <10 IU/ML = 3502) RHEUMATOID FACTOR, [id number] 00:00:00 Test Item Value Reference Range Interpretation Comments RHEUMATOID FACTOR, QUANT (test code <10 IU/ML = 3502) RHEUMATOID FACTOR, [id number] 00:00:00 Test Item Value Reference Range Interpretation Comments RHEUMATOID FACTOR, QUANT (test code <10 IU/ML = 3502) [id number] 00:00:00 Test Item Value Reference Range Interpretation Comments TSH, THIRD GENERATION (test code 3.790 UIU/ML = 2821) [id number] 00:00:00 Test Item Value Reference Range Interpretation Comments TSH, THIRD GENERATION (test code 3.790 UIU/ML = 2821) [id number] 00:00:00 Test Item Value Reference Range Interpretation Comments TSH, THIRD GENERATION (test code 3.790 UIU/ML = 2821) LIPID [id number] 00:00:00 Test Item Value Reference Range Interpretation Comments CHOLESTEROL (test code = 2210) 215 MG/DL TRIGLYCERIDES (test code = 2232) 187 MG/DL HDL CHOLESTEROL (test code = 2220) 48 MG/DL CALC LDL CHOL (test code = 2237) 135 MG/DL RISK RATIO LDL/HDL (test code = 2.81 RATIO 2238) COMPREHENSIVE METABOLIC [id number] 00:00:00 Test Item Value Reference Range Interpretation Comments GLUCOSE (test code = 2217) 98 MG/DL BUN (test code = 2208) 9 MG/DL CREATININE (test code = 2214) 0.61 MG/DL eGFR (2020 CKD-EPI) (test 105 ML/MIN/1.73 code = 67975) CALC BUN/CREAT (test code = 15 RATIO 2235) SODIUM (test code = 2231) 142 MEQ/L POTASSIUM (test code = 2228) 4.4 MEQ/L CHLORIDE (test code = 2215) 103 MEQ/L CARBON DIOXIDE (test code = 20 MEQ/L 2205) CALCIUM (test code = 2209) 9.7 MG/DL PROTEIN, TOTAL (test code = 7.5 G/DL 2228) ALBUMIN (test code = 2201) 4.3 G/DL CALC GLOBULIN (test code = 3.2 G/DL 2240) CALC A/G RATIO (test code = 1.3 RATIO 4) BILIRUBIN, TOTAL (test code = 0.6 MG/DL 2206) ALKALINE PHOSPHATASE (test 97 U/L code = 2204) AST (test code = 2218) 19 U/L ALT (test code = 2219) 25 U/L RHEUMATOID FACTOR, [id number] 00:00:00 Test Item Value Reference Range Interpretation Comments RHEUMATOID FACTOR, QUANT (test code <10 IU/ML = 3502) RHEUMATOID FACTOR, [id number] 00:00:00 Test Item Value Reference Range Interpretation Comments RHEUMATOID FACTOR, QUANT (test code <10 IU/ML = 3502) [id number] 00:00:00 Test Item Value Reference Range Interpretation Comments TSH, THIRD GENERATION (test code 3.790 UIU/ML = 2821) [id number] 00:00:00 Test Item Value Reference Range Interpretation Comments TSH, THIRD GENERATION (test code 3.790 UIU/ML = 2821) LIPID [id number] 00:00:00 Test Item Value Reference Range Interpretation Comments CHOLESTEROL (test code = 2210) 215 MG/DL TRIGLYCERIDES (test code = 2232) 187 MG/DL HDL CHOLESTEROL (test code = 2220) 48 MG/DL CALC LDL CHOL (test code = 2237) 135 MG/DL RISK RATIO LDL/HDL (test code = 2.81 RATIO 2238) COMPREHENSIVE METABOLIC [id number] 00:00:00 Test Item Value Reference Range Interpretation Comments GLUCOSE (test code = 2217) 98 MG/DL BUN (test code = 2208) 9 MG/DL CREATININE (test code = 2214) 0.61 MG/DL eGFR (2020 CKD-EPI) (test 105 ML/MIN/1.73 code = 49832) CALC BUN/CREAT (test code = 15 RATIO 2235) SODIUM (test code = 2231) 142 MEQ/L POTASSIUM (test code = 2228) 4.4 MEQ/L CHLORIDE (test code = 2215) 103 MEQ/L CARBON DIOXIDE (test code = 20 MEQ/L 2205) CALCIUM (test code = 2209) 9.7 MG/DL PROTEIN, TOTAL (test code = 7.5 G/DL 2228) ALBUMIN (test code = 2201) 4.3 G/DL CALC GLOBULIN (test code = 3.2 G/DL 2240) CALC A/G RATIO (test code = 1.3 RATIO 2234) BILIRUBIN, TOTAL (test code = 0.6 MG/DL 2206) ALKALINE PHOSPHATASE (test 97 U/L code = 2204) AST (test code = 2218) 19 U/L ALT (test code = 2219) 25 U/L RHEUMATOID FACTOR, [id number] 00:00:00 Test Item Value Reference Range Interpretation Comments RHEUMATOID FACTOR, QUANT (test code <10 IU/ML = 3502) RHEUMATOID FACTOR, [id number] 00:00:00 Test Item Value Reference Range Interpretation Comments RHEUMATOID FACTOR, QUANT (test code <10 IU/ML = 3502) [id number] 00:00:00 Test Item Value Reference Range Interpretation Comments TSH, THIRD GENERATION (test code 3.790 UIU/ML = 2821) [id number] 00:00:00 Test Item Value Reference Range Interpretation Comments TSH, THIRD GENERATION (test code 3.790 UIU/ML = 2821) LIPID [id number] 00:00:00 Test Item Value Reference Range Interpretation Comments CHOLESTEROL (test code = 2210) 215 MG/DL TRIGLYCERIDES (test code = 2232) 187 MG/DL HDL CHOLESTEROL (test code = 2220) 48 MG/DL CALC LDL CHOL (test code = 2237) 135 MG/DL RISK RATIO LDL/HDL (test code = 2.81 RATIO 2238) COMPREHENSIVE METABOLIC [id number] 00:00:00 Test Item Value Reference Range Interpretation Comments GLUCOSE (test code = 2217) 98 MG/DL BUN (test code = 2208) 9 MG/DL CREATININE (test code = 2214) 0.61 MG/DL eGFR (2020 CKD-EPI) (test 105 ML/MIN/1.73 code = 56065) CALC BUN/CREAT (test code = 15 RATIO 2234) SODIUM (test code = 2231) 142 MEQ/L POTASSIUM (test code = 2228) 4.4 MEQ/L CHLORIDE (test code = 2215) 103 MEQ/L CARBON DIOXIDE (test code = 20 MEQ/L 2205) CALCIUM (test code = 2209) 9.7 MG/DL PROTEIN, TOTAL (test code = 7.5 G/DL 2228) ALBUMIN (test code = 2201) 4.3 G/DL CALC GLOBULIN (test code = 3.2 G/DL 0) CALC A/G RATIO (test code = 1.3 RATIO 2233) BILIRUBIN, TOTAL (test code = 0.6 MG/DL 2206) ALKALINE PHOSPHATASE (test 97 U/L code = 2204) AST (test code = 2218) 19 U/L ALT (test code = 2219) 25 U/L RHEUMATOID FACTOR, [id number] 00:00:00 Test Item Value Reference Range Interpretation Comments RHEUMATOID FACTOR, QUANT (test code <10 IU/ML = 3502) RHEUMATOID FACTOR, [id number] 00:00:00 Test Item Value Reference Range Interpretation Comments RHEUMATOID FACTOR, QUANT (test code <10 IU/ML = 3502) [id number] 00:00:00 Test Item Value Reference Range Interpretation Comments TSH, THIRD GENERATION (test code 3.790 UIU/ML = 2821) [id number] 00:00:00 Test Item Value Reference Range Interpretation Comments TSH, THIRD GENERATION (test code 3.790 UIU/ML = 2821) LIPID [id number] 00:00:00 Test Item Value Reference Range Interpretation Comments CHOLESTEROL (test code = 2210) 215 MG/DL TRIGLYCERIDES (test code = 2232) 187 MG/DL HDL CHOLESTEROL (test code = 2220) 48 MG/DL CALC LDL CHOL (test code = 2237) 135 MG/DL RISK RATIO LDL/HDL (test code = 2.81 RATIO 2238) LIPID [id number] 00:00:00 Test Item Value Reference Range Interpretation Comments CHOLESTEROL (test code = 2210) 215 MG/DL TRIGLYCERIDES (test code = 2232) 187 MG/DL HDL CHOLESTEROL (test code = 2220) 48 MG/DL CALC LDL CHOL (test code = 2237) 135 MG/DL RISK RATIO LDL/HDL (test code = 2.81 RATIO 2238) COMPREHENSIVE METABOLIC [id number] 00:00:00 Test Item Value Reference Range Interpretation Comments GLUCOSE (test code = 2217) 98 MG/DL BUN (test code = 2208) 9 MG/DL CREATININE (test code = 2214) 0.61 MG/DL eGFR (2020 CKD-EPI) (test 105 ML/MIN/1.73 code = 92101) CALC BUN/CREAT (test code = 15 RATIO 2235) SODIUM (test code = 2231) 142 MEQ/L POTASSIUM (test code = 2228) 4.4 MEQ/L CHLORIDE (test code = 2215) 103 MEQ/L CARBON DIOXIDE (test code = 20 MEQ/L 2205) CALCIUM (test code = 2209) 9.7 MG/DL PROTEIN, TOTAL (test code = 7.5 G/DL 2228) ALBUMIN (test code = 2201) 4.3 G/DL CALC GLOBULIN (test code = 3.2 G/DL 2239) CALC A/G RATIO (test code = 1.3 RATIO 2234) BILIRUBIN, TOTAL (test code = 0.6 MG/DL 2206) ALKALINE PHOSPHATASE (test 97 U/L code = 2204) AST (test code = 2218) 19 U/L ALT (test code = 2219) 25 U/L CBC W/AUTO DIFF WITH [id number] 04:28:25 Test Item Value Reference Range Interpretation Comments WBC (test code = 6.1 K/UL 3.5-11.0 1001) RBC (test code = 5.12 M/UL 3.80-5.40 1002) HEMOGLOBIN (test code 15.6 G/DL 11.5-15.5 H = 1003) HEMATOCRIT (test code 47.7 % 34.0-45.0 H = 1004) MCV (test code = 93.2 fL 80.0-99.0 1005) MCH (test code = 30.5 PG 25.0-33.0 1006) MCHC (test code = 32.7 G/DL 31.0-36.0 1007) RDW (test code = 13.0 % 11.5-15.0 1038) NEUTROPHILS (test 57.8 % code = 1008) LYMPHOCYTES (test 31.1 % code = 1010) MONOCYTES (test code 7.2 % = 1011) EOSINOPHILS (test 2.6 % code = 1012) BASOPHILS (test code 1.0 % = 1013) IMMATURE GRANULOCYTES 0.3 % (test code = 1036) NUCLEATED RBCS (test 0.0 /100 WBC'S See_Comment [Aut omated code = 1065) message] The sy stem which generated this result transmitted reference range : 0.0. The refere nce range was not u sed to interpret th is result as normal/abnormal . PLATELET COUNT (test 214 K/UL 130-400 code = 1015) ABSOLUTE NEUTROPHILS 3.51 K/UL 1.50-7.50 (test code = 1066) ABSOLUTE LYMPHOCYTES 1.89 K/UL 1.00-4.00 (test code = 1067) ABSOLUTE MONOCYTES 0.44 K/UL 0.20-1.00 (test code = 1068) ABSOLUTE EOSINOPHILS 0.16 K/UL 0.00-0.50 (test code = 1040) ABSOLUTE BASOPHILS 0.06 K/UL 0.00-0.20 (test code = 1069) ABS IMMATURE 0.02 K/UL 0.00-0.10 GRANULOCYTES (test code = 1020) ABS NUCLEATED RBCS 0.00 K/UL 0.00-0.11 (test code = 20234) CBC W/AUTO [id number] 00:00:00 Test Item Value Reference Range Interpretation Comments WBC (test code = 1001) 6.1 K/UL RBC (test code = 1002) 5.12 M/UL HEMOGLOBIN (test code = 1003) 15.6 G/DL HEMATOCRIT (test code = 1004) 47.7 % MCV (test code = 1005) 93.2 fL MCH (test code = 1006) 30.5 PG MCHC (test code = 1007) 32.7 G/DL RDW (test code = 1038) 13.0 % NEUTROPHILS (test code = 1008) 57.8 % LYMPHOCYTES (test code = 1010) 31.1 % MONOCYTES (test code = 1011) 7.2 % EOSINOPHILS (test code = 1012) 2.6 % BASOPHILS (test code = 1013) 1.0 % IMMATURE GRANULOCYTES (test 0.3 % code = 1036) NUCLEATED RBCS (test code = 0.0 /100WBC'S 1065) PLATELET COUNT (test code = 214 K/UL 1015) ABSOLUTE NEUTROPHILS (test code 3.51 K/UL = 1066) ABSOLUTE LYMPHOCYTES (test code 1.89 K/UL = 1067) ABSOLUTE MONOCYTES (test code = 0.44 K/UL 1068) ABSOLUTE EOSINOPHILS (test code 0.16 K/UL = 1040) ABSOLUTE BASOPHILS (test code = 0.06 K/UL 1069) ABS IMMATURE GRANULOCYTES (test 0.02 K/UL code = 1020) ABS NUCLEATED RBCS (test code = 0.00 K/UL 00258) CBC W/AUTO [id number] 00:00:00 Test Item Value Reference Range Interpretation Comments WBC (test code = 1001) 6.1 K/UL RBC (test code = 1002) 5.12 M/UL HEMOGLOBIN (test code = 1003) 15.6 G/DL HEMATOCRIT (test code = 1004) 47.7 % MCV (test code = 1005) 93.2 fL MCH (test code = 1006) 30.5 PG MCHC (test code = 1007) 32.7 G/DL RDW (test code = 1038) 13.0 % NEUTROPHILS (test code = 1008) 57.8 % LYMPHOCYTES (test code = 1010) 31.1 % MONOCYTES (test code = 1011) 7.2 % EOSINOPHILS (test code = 1012) 2.6 % BASOPHILS (test code = 1013) 1.0 % IMMATURE GRANULOCYTES (test 0.3 % code = 1036) NUCLEATED RBCS (test code = 0.0 /100WBC'S 1065) PLATELET COUNT (test code = 214 K/UL 1015) ABSOLUTE NEUTROPHILS (test code 3.51 K/UL = 1066) ABSOLUTE LYMPHOCYTES (test code 1.89 K/UL = 1067) ABSOLUTE MONOCYTES (test code = 0.44 K/UL 1068) ABSOLUTE EOSINOPHILS (test code 0.16 K/UL = 1040) ABSOLUTE BASOPHILS (test code = 0.06 K/UL 1069) ABS IMMATURE GRANULOCYTES (test 0.02 K/UL code = 1020) ABS NUCLEATED RBCS (test code = 0.00 K/UL 52328) CBC W/AUTO [id number] 00:00:00 Test Item Value Reference Range Interpretation Comments WBC (test code = 1001) 6.1 K/UL RBC (test code = 1002) 5.12 M/UL HEMOGLOBIN (test code = 1003) 15.6 G/DL HEMATOCRIT (test code = 1004) 47.7 % MCV (test code = 1005) 93.2 fL MCH (test code = 1006) 30.5 PG MCHC (test code = 1007) 32.7 G/DL RDW (test code = 1038) 13.0 % NEUTROPHILS (test code = 1008) 57.8 % LYMPHOCYTES (test code = 1010) 31.1 % MONOCYTES (test code = 1011) 7.2 % EOSINOPHILS (test code = 1012) 2.6 % BASOPHILS (test code = 1013) 1.0 % IMMATURE GRANULOCYTES (test 0.3 % code = 1036) NUCLEATED RBCS (test code = 0.0 /100WBC'S 1065) PLATELET COUNT (test code = 214 K/UL 1015) ABSOLUTE NEUTROPHILS (test code 3.51 K/UL = 1066) ABSOLUTE LYMPHOCYTES (test code 1.89 K/UL = 1067) ABSOLUTE MONOCYTES (test code = 0.44 K/UL 1068) ABSOLUTE EOSINOPHILS (test code 0.16 K/UL = 1040) ABSOLUTE BASOPHILS (test code = 0.06 K/UL 1069) ABS IMMATURE GRANULOCYTES (test 0.02 K/UL code = 1020) ABS NUCLEATED RBCS (test code = 0.00 K/UL 71333) CBC W/AUTO [id number] 00:00:00 Test Item Value Reference Range Interpretation Comments WBC (test code = 1001) 6.1 K/UL RBC (test code = 1002) 5.12 M/UL HEMOGLOBIN (test code = 1003) 15.6 G/DL HEMATOCRIT (test code = 1004) 47.7 % MCV (test code = 1005) 93.2 fL MCH (test code = 1006) 30.5 PG MCHC (test code = 1007) 32.7 G/DL RDW (test code = 1038) 13.0 % NEUTROPHILS (test code = 1008) 57.8 % LYMPHOCYTES (test code = 1010) 31.1 % MONOCYTES (test code = 1011) 7.2 % EOSINOPHILS (test code = 1012) 2.6 % BASOPHILS (test code = 1013) 1.0 % IMMATURE GRANULOCYTES (test 0.3 % code = 1036) NUCLEATED RBCS (test code = 0.0 /100WBC'S 1065) PLATELET COUNT (test code = 214 K/UL 1015) ABSOLUTE NEUTROPHILS (test code 3.51 K/UL = 1066) ABSOLUTE LYMPHOCYTES (test code 1.89 K/UL = 1067) ABSOLUTE MONOCYTES (test code = 0.44 K/UL 1068) ABSOLUTE EOSINOPHILS (test code 0.16 K/UL = 1040) ABSOLUTE BASOPHILS (test code = 0.06 K/UL 1069) ABS IMMATURE GRANULOCYTES (test 0.02 K/UL code = 1020) ABS NUCLEATED RBCS (test code = 0.00 K/UL 48751) CBC W/AUTO [id number] 00:00:00 Test Item Value Reference Range Interpretation Comments WBC (test code = 1001) 6.1 K/UL RBC (test code = 1002) 5.12 M/UL HEMOGLOBIN (test code = 1003) 15.6 G/DL HEMATOCRIT (test code = 1004) 47.7 % MCV (test code = 1005) 93.2 fL MCH (test code = 1006) 30.5 PG MCHC (test code = 1007) 32.7 G/DL RDW (test code = 1038) 13.0 % NEUTROPHILS (test code = 1008) 57.8 % LYMPHOCYTES (test code = 1010) 31.1 % MONOCYTES (test code = 1011) 7.2 % EOSINOPHILS (test code = 1012) 2.6 % BASOPHILS (test code = 1013) 1.0 % IMMATURE GRANULOCYTES (test 0.3 % code = 1036) NUCLEATED RBCS (test code = 0.0 /100WBC'S 1065) PLATELET COUNT (test code = 214 K/UL 1015) ABSOLUTE NEUTROPHILS (test code 3.51 K/UL = 1066) ABSOLUTE LYMPHOCYTES (test code 1.89 K/UL = 1067) ABSOLUTE MONOCYTES (test code = 0.44 K/UL 1068) ABSOLUTE EOSINOPHILS (test code 0.16 K/UL = 1040) ABSOLUTE BASOPHILS (test code = 0.06 K/UL 1069) ABS IMMATURE GRANULOCYTES (test 0.02 K/UL code = 1020) ABS NUCLEATED RBCS (test code = 0.00 K/UL 05288) CBC W/AUTO [id number] 00:00:00 Test Item Value Reference Range Interpretation Comments WBC (test code = 1001) 6.1 K/UL RBC (test code = 1002) 5.12 M/UL HEMOGLOBIN (test code = 1003) 15.6 G/DL HEMATOCRIT (test code = 1004) 47.7 % MCV (test code = 1005) 93.2 fL MCH (test code = 1006) 30.5 PG MCHC (test code = 1007) 32.7 G/DL RDW (test code = 1038) 13.0 % NEUTROPHILS (test code = 1008) 57.8 % LYMPHOCYTES (test code = 1010) 31.1 % MONOCYTES (test code = 1011) 7.2 % EOSINOPHILS (test code = 1012) 2.6 % BASOPHILS (test code = 1013) 1.0 % IMMATURE GRANULOCYTES (test 0.3 % code = 1036) NUCLEATED RBCS (test code = 0.0 /100WBC'S 1065) PLATELET COUNT (test code = 214 K/UL 1015) ABSOLUTE NEUTROPHILS (test code 3.51 K/UL = 1066) ABSOLUTE LYMPHOCYTES (test code 1.89 K/UL = 1067) ABSOLUTE MONOCYTES (test code = 0.44 K/UL 1068) ABSOLUTE EOSINOPHILS (test code 0.16 K/UL = 1040) ABSOLUTE BASOPHILS (test code = 0.06 K/UL 1069) ABS IMMATURE GRANULOCYTES (test 0.02 K/UL code = 1020) ABS NUCLEATED RBCS (test code = 0.00 K/UL 47120) CBC W/AUTO [id number] 00:00:00 Test Item Value Reference Range Interpretation Comments WBC (test code = 1001) 6.1 K/UL RBC (test code = 1002) 5.12 M/UL HEMOGLOBIN (test code = 1003) 15.6 G/DL HEMATOCRIT (test code = 1004) 47.7 % MCV (test code = 1005) 93.2 fL MCH (test code = 1006) 30.5 PG MCHC (test code = 1007) 32.7 G/DL RDW (test code = 1038) 13.0 % NEUTROPHILS (test code = 1008) 57.8 % LYMPHOCYTES (test code = 1010) 31.1 % MONOCYTES (test code = 1011) 7.2 % EOSINOPHILS (test code = 1012) 2.6 % BASOPHILS (test code = 1013) 1.0 % IMMATURE GRANULOCYTES (test 0.3 % code = 1036) NUCLEATED RBCS (test code = 0.0 /100WBC'S 1065) PLATELET COUNT (test code = 214 K/UL 1015) ABSOLUTE NEUTROPHILS (test code 3.51 K/UL = 1066) ABSOLUTE LYMPHOCYTES (test code 1.89 K/UL = 1067) ABSOLUTE MONOCYTES (test code = 0.44 K/UL 1068) ABSOLUTE EOSINOPHILS (test code 0.16 K/UL = 1040) ABSOLUTE BASOPHILS (test code = 0.06 K/UL 1069) ABS IMMATURE GRANULOCYTES (test 0.02 K/UL code = 1020) ABS NUCLEATED RBCS (test code = 0.00 K/UL 05146) CBC W/AUTO [id number] 00:00:00 Test Item Value Reference Range Interpretation Comments WBC (test code = 1001) 6.1 K/UL RBC (test code = 1002) 5.12 M/UL HEMOGLOBIN (test code = 1003) 15.6 G/DL HEMATOCRIT (test code = 1004) 47.7 % MCV (test code = 1005) 93.2 fL MCH (test code = 1006) 30.5 PG MCHC (test code = 1007) 32.7 G/DL RDW (test code = 1038) 13.0 % NEUTROPHILS (test code = 1008) 57.8 % LYMPHOCYTES (test code = 1010) 31.1 % MONOCYTES (test code = 1011) 7.2 % EOSINOPHILS (test code = 1012) 2.6 % BASOPHILS (test code = 1013) 1.0 % IMMATURE GRANULOCYTES (test 0.3 % code = 1036) NUCLEATED RBCS (test code = 0.0 /100WBC'S 1065) PLATELET COUNT (test code = 214 K/UL 1015) ABSOLUTE NEUTROPHILS (test code 3.51 K/UL = 1066) ABSOLUTE LYMPHOCYTES (test code 1.89 K/UL = 1067) ABSOLUTE MONOCYTES (test code = 0.44 K/UL 1068) ABSOLUTE EOSINOPHILS (test code 0.16 K/UL = 1040) ABSOLUTE BASOPHILS (test code = 0.06 K/UL 1069) ABS IMMATURE GRANULOCYTES (test 0.02 K/UL code = 1020) ABS NUCLEATED RBCS (test code = 0.00 K/UL 38432) CBC W/AUTO [id number] 00:00:00 Test Item Value Reference Range Interpretation Comments WBC (test code = 1001) 6.1 K/UL RBC (test code = 1002) 5.12 M/UL HEMOGLOBIN (test code = 1003) 15.6 G/DL HEMATOCRIT (test code = 1004) 47.7 % MCV (test code = 1005) 93.2 fL MCH (test code = 1006) 30.5 PG MCHC (test code = 1007) 32.7 G/DL RDW (test code = 1038) 13.0 % NEUTROPHILS (test code = 1008) 57.8 % LYMPHOCYTES (test code = 1010) 31.1 % MONOCYTES (test code = 1011) 7.2 % EOSINOPHILS (test code = 1012) 2.6 % BASOPHILS (test code = 1013) 1.0 % IMMATURE GRANULOCYTES (test 0.3 % code = 1036) NUCLEATED RBCS (test code = 0.0 /100WBC'S 1065) PLATELET COUNT (test code = 214 K/UL 1015) ABSOLUTE NEUTROPHILS (test code 3.51 K/UL = 1066) ABSOLUTE LYMPHOCYTES (test code 1.89 K/UL = 1067) ABSOLUTE MONOCYTES (test code = 0.44 K/UL 1068) ABSOLUTE EOSINOPHILS (test code 0.16 K/UL = 1040) ABSOLUTE BASOPHILS (test code = 0.06 K/UL 1069) ABS IMMATURE GRANULOCYTES (test 0.02 K/UL code = 1020) ABS NUCLEATED RBCS (test code = 0.00 K/UL 75398) CBC W/AUTO [id number] 00:00:00 Test Item Value Reference Range Interpretation Comments WBC (test code = 1001) 6.1 K/UL RBC (test code = 1002) 5.12 M/UL HEMOGLOBIN (test code = 1003) 15.6 G/DL HEMATOCRIT (test code = 1004) 47.7 % MCV (test code = 1005) 93.2 fL MCH (test code = 1006) 30.5 PG MCHC (test code = 1007) 32.7 G/DL RDW (test code = 1038) 13.0 % NEUTROPHILS (test code = 1008) 57.8 % LYMPHOCYTES (test code = 1010) 31.1 % MONOCYTES (test code = 1011) 7.2 % EOSINOPHILS (test code = 1012) 2.6 % BASOPHILS (test code = 1013) 1.0 % IMMATURE GRANULOCYTES (test 0.3 % code = 1036) NUCLEATED RBCS (test code = 0.0 /100WBC'S 1065) PLATELET COUNT (test code = 214 K/UL 1015) ABSOLUTE NEUTROPHILS (test code 3.51 K/UL = 1066) ABSOLUTE LYMPHOCYTES (test code 1.89 K/UL = 1067) ABSOLUTE MONOCYTES (test code = 0.44 K/UL 1068) ABSOLUTE EOSINOPHILS (test code 0.16 K/UL = 1040) ABSOLUTE BASOPHILS (test code = 0.06 K/UL 1069) ABS IMMATURE GRANULOCYTES (test 0.02 K/UL code = 1020) ABS NUCLEATED RBCS (test code = 0.00 K/UL 69124) CBC W/AUTO [id number] 00:00:00 Test Item Value Reference Range Interpretation Comments WBC (test code = 1001) 6.1 K/UL RBC (test code = 1002) 5.12 M/UL HEMOGLOBIN (test code = 1003) 15.6 G/DL HEMATOCRIT (test code = 1004) 47.7 % MCV (test code = 1005) 93.2 fL MCH (test code = 1006) 30.5 PG MCHC (test code = 1007) 32.7 G/DL RDW (test code = 1038) 13.0 % NEUTROPHILS (test code = 1008) 57.8 % LYMPHOCYTES (test code = 1010) 31.1 % MONOCYTES (test code = 1011) 7.2 % EOSINOPHILS (test code = 1012) 2.6 % BASOPHILS (test code = 1013) 1.0 % IMMATURE GRANULOCYTES (test 0.3 % code = 1036) NUCLEATED RBCS (test code = 0.0 /100WBC'S 1065) PLATELET COUNT (test code = 214 K/UL 1015) ABSOLUTE NEUTROPHILS (test code 3.51 K/UL = 1066) ABSOLUTE LYMPHOCYTES (test code 1.89 K/UL = 1067) ABSOLUTE MONOCYTES (test code = 0.44 K/UL 1068) ABSOLUTE EOSINOPHILS (test code 0.16 K/UL = 1040) ABSOLUTE BASOPHILS (test code = 0.06 K/UL 1069) ABS IMMATURE GRANULOCYTES (test 0.02 K/UL code = 1020) ABS NUCLEATED RBCS (test code = 0.00 K/UL 48295) CBC W/AUTO [id number] 00:00:00 Test Item Value Reference Range Interpretation Comments WBC (test code = 1001) 6.1 K/UL RBC (test code = 1002) 5.12 M/UL HEMOGLOBIN (test code = 1003) 15.6 G/DL HEMATOCRIT (test code = 1004) 47.7 % MCV (test code = 1005) 93.2 fL MCH (test code = 1006) 30.5 PG MCHC (test code = 1007) 32.7 G/DL RDW (test code = 1038) 13.0 % NEUTROPHILS (test code = 1008) 57.8 % LYMPHOCYTES (test code = 1010) 31.1 % MONOCYTES (test code = 1011) 7.2 % EOSINOPHILS (test code = 1012) 2.6 % BASOPHILS (test code = 1013) 1.0 % IMMATURE GRANULOCYTES (test 0.3 % code = 1036) NUCLEATED RBCS (test code = 0.0 /100WBC'S 1065) PLATELET COUNT (test code = 214 K/UL 1015) ABSOLUTE NEUTROPHILS (test code 3.51 K/UL = 1066) ABSOLUTE LYMPHOCYTES (test code 1.89 K/UL = 1067) ABSOLUTE MONOCYTES (test code = 0.44 K/UL 1068) ABSOLUTE EOSINOPHILS (test code 0.16 K/UL = 1040) ABSOLUTE BASOPHILS (test code = 0.06 K/UL 1069) ABS IMMATURE GRANULOCYTES (test 0.02 K/UL code = 1020) ABS NUCLEATED RBCS (test code = 0.00 K/UL 62165) CBC W/AUTO [id number] 00:00:00 Test Item Value Reference Range Interpretation Comments WBC (test code = 1001) 6.1 K/UL RBC (test code = 1002) 5.12 M/UL HEMOGLOBIN (test code = 1003) 15.6 G/DL HEMATOCRIT (test code = 1004) 47.7 % MCV (test code = 1005) 93.2 fL MCH (test code = 1006) 30.5 PG MCHC (test code = 1007) 32.7 G/DL RDW (test code = 1038) 13.0 % NEUTROPHILS (test code = 1008) 57.8 % LYMPHOCYTES (test code = 1010) 31.1 % MONOCYTES (test code = 1011) 7.2 % EOSINOPHILS (test code = 1012) 2.6 % BASOPHILS (test code = 1013) 1.0 % IMMATURE GRANULOCYTES (test 0.3 % code = 1036) NUCLEATED RBCS (test code = 0.0 /100WBC'S 1065) PLATELET COUNT (test code = 214 K/UL 1015) ABSOLUTE NEUTROPHILS (test code 3.51 K/UL = 1066) ABSOLUTE LYMPHOCYTES (test code 1.89 K/UL = 1067) ABSOLUTE MONOCYTES (test code = 0.44 K/UL 1068) ABSOLUTE EOSINOPHILS (test code 0.16 K/UL = 1040) ABSOLUTE BASOPHILS (test code = 0.06 K/UL 1069) ABS IMMATURE GRANULOCYTES (test 0.02 K/UL code = 1020) ABS NUCLEATED RBCS (test code = 0.00 K/UL 90323) CBC W/AUTO [id number] 00:00:00 Test Item Value Reference Range Interpretation Comments WBC (test code = 1001) 6.1 K/UL RBC (test code = 1002) 5.12 M/UL HEMOGLOBIN (test code = 1003) 15.6 G/DL HEMATOCRIT (test code = 1004) 47.7 % MCV (test code = 1005) 93.2 fL MCH (test code = 1006) 30.5 PG MCHC (test code = 1007) 32.7 G/DL RDW (test code = 1038) 13.0 % NEUTROPHILS (test code = 1008) 57.8 % LYMPHOCYTES (test code = 1010) 31.1 % MONOCYTES (test code = 1011) 7.2 % EOSINOPHILS (test code = 1012) 2.6 % BASOPHILS (test code = 1013) 1.0 % IMMATURE GRANULOCYTES (test 0.3 % code = 1036) NUCLEATED RBCS (test code = 0.0 /100WBC'S 1065) PLATELET COUNT (test code = 214 K/UL 1015) ABSOLUTE NEUTROPHILS (test code 3.51 K/UL = 1066) ABSOLUTE LYMPHOCYTES (test code 1.89 K/UL = 1067) ABSOLUTE MONOCYTES (test code = 0.44 K/UL 1068) ABSOLUTE EOSINOPHILS (test code 0.16 K/UL = 1040) ABSOLUTE BASOPHILS (test code = 0.06 K/UL 1069) ABS IMMATURE GRANULOCYTES (test 0.02 K/UL code = 1020) ABS NUCLEATED RBCS (test code = 0.00 K/UL 08002) CBC W/AUTO [id number] 00:00:00 Test Item Value Reference Range Interpretation Comments WBC (test code = 1001) 6.1 K/UL RBC (test code = 1002) 5.12 M/UL HEMOGLOBIN (test code = 1003) 15.6 G/DL HEMATOCRIT (test code = 1004) 47.7 % MCV (test code = 1005) 93.2 fL MCH (test code = 1006) 30.5 PG MCHC (test code = 1007) 32.7 G/DL RDW (test code = 1038) 13.0 % NEUTROPHILS (test code = 1008) 57.8 % LYMPHOCYTES (test code = 1010) 31.1 % MONOCYTES (test code = 1011) 7.2 % EOSINOPHILS (test code = 1012) 2.6 % BASOPHILS (test code = 1013) 1.0 % IMMATURE GRANULOCYTES (test 0.3 % code = 1036) NUCLEATED RBCS (test code = 0.0 /100WBC'S 1065) PLATELET COUNT (test code = 214 K/UL 1015) ABSOLUTE NEUTROPHILS (test code 3.51 K/UL = 1066) ABSOLUTE LYMPHOCYTES (test code 1.89 K/UL = 1067) ABSOLUTE MONOCYTES (test code = 0.44 K/UL 1068) ABSOLUTE EOSINOPHILS (test code 0.16 K/UL = 1040) ABSOLUTE BASOPHILS (test code = 0.06 K/UL 1069) ABS IMMATURE GRANULOCYTES (test 0.02 K/UL code = 1020) ABS NUCLEATED RBCS (test code = 0.00 K/UL 63000) [id number] 00:00:00 Test Item Value Reference Range Interpretation Comments LIPASE (test code = 2057) 26 U/L [id number] 00:00:00 Test Item Value Reference Range Interpretation Comments LIPASE (test code = 2057) 26 U/L [id number] 00:00:00 Test Item Value Reference Range Interpretation Comments LIPASE (test code = 2057) 26 U/L CBC W/AUTO [id number] 00:00:00 Test Item Value Reference Range Interpretation Comments WBC (test code = 1001) 8.3 K/UL RBC (test code = 1002) 5.46 M/UL HEMOGLOBIN (test code = 1003) 16.5 G/DL HEMATOCRIT (test code = 1004) 47.9 % MCV (test code = 1005) 87.7 fL MCH (test code = 1006) 30.2 PG MCHC (test code = 1007) 34.4 G/DL RDW (test code = 1038) 13.4 % NEUTROPHILS (test code = 1008) 63.9 % LYMPHOCYTES (test code = 1010) 27.2 % MONOCYTES (test code = 1011) 6.0 % EOSINOPHILS (test code = 1012) 1.7 % BASOPHILS (test code = 1013) 1.0 % IMMATURE GRANULOCYTES (test 0.2 % code = 1036) NUCLEATED RBCS (test code = 0.0 /100WBC'S 1065) PLATELET COUNT (test code = 231 K/UL 1015) ABSOLUTE NEUTROPHILS (test code 5.32 K/UL = 1066) ABSOLUTE LYMPHOCYTES (test code 2.26 K/UL = 1067) ABSOLUTE MONOCYTES (test code = 0.50 K/UL 1068) ABSOLUTE EOSINOPHILS (test code 0.14 K/UL = 1040) ABSOLUTE BASOPHILS (test code = 0.08 K/UL 1069) ABS IMMATURE GRANULOCYTES (test 0.02 K/UL code = 1020) ABS NUCLEATED RBCS (test code = 0.00 K/UL 25551) CBC W/AUTO [id number] 00:00:00 Test Item Value Reference Range Interpretation Comments WBC (test code = 1001) 8.3 K/UL RBC (test code = 1002) 5.46 M/UL HEMOGLOBIN (test code = 1003) 16.5 G/DL HEMATOCRIT (test code = 1004) 47.9 % MCV (test code = 1005) 87.7 fL MCH (test code = 1006) 30.2 PG MCHC (test code = 1007) 34.4 G/DL RDW (test code = 1038) 13.4 % NEUTROPHILS (test code = 1008) 63.9 % LYMPHOCYTES (test code = 1010) 27.2 % MONOCYTES (test code = 1011) 6.0 % EOSINOPHILS (test code = 1012) 1.7 % BASOPHILS (test code = 1013) 1.0 % IMMATURE GRANULOCYTES (test 0.2 % code = 1036) NUCLEATED RBCS (test code = 0.0 /100WBC'S 1065) PLATELET COUNT (test code = 231 K/UL 1015) ABSOLUTE NEUTROPHILS (test code 5.32 K/UL = 1066) ABSOLUTE LYMPHOCYTES (test code 2.26 K/UL = 1067) ABSOLUTE MONOCYTES (test code = 0.50 K/UL 1068) ABSOLUTE EOSINOPHILS (test code 0.14 K/UL = 1040) ABSOLUTE BASOPHILS (test code = 0.08 K/UL 1069) ABS IMMATURE GRANULOCYTES (test 0.02 K/UL code = 1020) ABS NUCLEATED RBCS (test code = 0.00 K/UL 60607) CBC W/AUTO [id number] 00:00:00 Test Item Value Reference Range Interpretation Comments WBC (test code = 1001) 8.3 K/UL RBC (test code = 1002) 5.46 M/UL HEMOGLOBIN (test code = 1003) 16.5 G/DL HEMATOCRIT (test code = 1004) 47.9 % MCV (test code = 1005) 87.7 fL MCH (test code = 1006) 30.2 PG MCHC (test code = 1007) 34.4 G/DL RDW (test code = 1038) 13.4 % NEUTROPHILS (test code = 1008) 63.9 % LYMPHOCYTES (test code = 1010) 27.2 % MONOCYTES (test code = 1011) 6.0 % EOSINOPHILS (test code = 1012) 1.7 % BASOPHILS (test code = 1013) 1.0 % IMMATURE GRANULOCYTES (test 0.2 % code = 1036) NUCLEATED RBCS (test code = 0.0 /100WBC'S 1065) PLATELET COUNT (test code = 231 K/UL 1015) ABSOLUTE NEUTROPHILS (test code 5.32 K/UL = 1066) ABSOLUTE LYMPHOCYTES (test code 2.26 K/UL = 1067) ABSOLUTE MONOCYTES (test code = 0.50 K/UL 1068) ABSOLUTE EOSINOPHILS (test code 0.14 K/UL = 1040) ABSOLUTE BASOPHILS (test code = 0.08 K/UL 1069) ABS IMMATURE GRANULOCYTES (test 0.02 K/UL code = 1020) ABS NUCLEATED RBCS (test code = 0.00 K/UL 64982) COMPREHENSIVE METABOLIC [id number] 00:00:00 Test Item Value Reference Range Interpretation Comments GLUCOSE (test code = 2217) 93 MG/DL BUN (test code = 2208) 9 MG/DL CREATININE (test code = 2214) 0.63 MG/DL eGFR AMER. (test code 117 ML/MIN/1.73 = 03158) eGFR NON- AMER. (test 101 ML/MIN/1.73 code = 55222) CALC BUN/CREAT (test code = 14 RATIO 2235) SODIUM (test code = 2231) 142 MEQ/L POTASSIUM (test code = 2228) 4.4 MEQ/L CHLORIDE (test code = 2215) 104 MEQ/L CARBON DIOXIDE (test code = 26 MEQ/L 2206) CALCIUM (test code = 2209) 9.8 MG/DL PROTEIN, TOTAL (test code = 7.6 G/DL 2228) ALBUMIN (test code = 2201) 4.7 G/DL CALC GLOBULIN (test code = 2.9 G/DL 2240) CALC A/G RATIO (test code = 1.6 RATIO 2234) BILIRUBIN, TOTAL (test code = 0.8 MG/DL 220) ALKALINE PHOSPHATASE (test 104 U/L code = 2204) AST (test code = 2218) 26 U/L ALT (test code = 2219) 30 U/L COMPREHENSIVE METABOLIC [id number] 00:00:00 Test Item Value Reference Range Interpretation Comments GLUCOSE (test code = 2217) 93 MG/DL BUN (test code = 2208) 9 MG/DL CREATININE (test code = 2214) 0.63 MG/DL eGFR AMER. (test code 117 ML/MIN/1.73 = 00570) eGFR NON- AMER. (test 101 ML/MIN/1.73 code = 84946) CALC BUN/CREAT (test code = 14 RATIO 2235) SODIUM (test code = 2231) 142 MEQ/L POTASSIUM (test code = 2228) 4.4 MEQ/L CHLORIDE (test code = 2215) 104 MEQ/L CARBON DIOXIDE (test code = 26 MEQ/L 2205) CALCIUM (test code = 2209) 9.8 MG/DL PROTEIN, TOTAL (test code = 7.6 G/DL 2228) ALBUMIN (test code = 220) 4.7 G/DL CALC GLOBULIN (test code = 2.9 G/DL 2239) CALC A/G RATIO (test code = 1.6 RATIO 2233) BILIRUBIN, TOTAL (test code = 0.8 MG/DL 2206) ALKALINE PHOSPHATASE (test 104 U/L code = 2204) AST (test code = 2218) 26 U/L ALT (test code = 2219) 30 U/L [id number] 00:00:00 Test Item Value Reference Range Interpretation Comments AMYLASE (test code = 2205) 58 U/L [id number] 00:00:00 Test Item Value Reference Range Interpretation Comments AMYLASE (test code = 2205) 58 U/L [id number] 00:00:00 Test Item Value Reference Range Interpretation Comments LIPASE (test code = 2057) 26 U/L [id number] 00:00:00 Test Item Value Reference Range Interpretation Comments LIPASE (test code = 2057) 26 U/L [id number] 00:00:00 Test Item Value Reference Range Interpretation Comments LIPASE (test code = 2057) 26 U/L CBC W/AUTO [id number] 00:00:00 Test Item Value Reference Range Interpretation Comments WBC (test code = 1001) 8.3 K/UL RBC (test code = 1002) 5.46 M/UL HEMOGLOBIN (test code = 1003) 16.5 G/DL HEMATOCRIT (test code = 1004) 47.9 % MCV (test code = 1005) 87.7 fL MCH (test code = 1006) 30.2 PG MCHC (test code = 1007) 34.4 G/DL RDW (test code = 1038) 13.4 % NEUTROPHILS (test code = 1008) 63.9 % LYMPHOCYTES (test code = 1010) 27.2 % MONOCYTES (test code = 1011) 6.0 % EOSINOPHILS (test code = 1012) 1.7 % BASOPHILS (test code = 1013) 1.0 % IMMATURE GRANULOCYTES (test 0.2 % code = 1036) NUCLEATED RBCS (test code = 0.0 /100WBC'S 1065) PLATELET COUNT (test code = 231 K/UL 1015) ABSOLUTE NEUTROPHILS (test code 5.32 K/UL = 1066) ABSOLUTE LYMPHOCYTES (test code 2.26 K/UL = 1067) ABSOLUTE MONOCYTES (test code = 0.50 K/UL 1068) ABSOLUTE EOSINOPHILS (test code 0.14 K/UL = 1040) ABSOLUTE BASOPHILS (test code = 0.08 K/UL 1069) ABS IMMATURE GRANULOCYTES (test 0.02 K/UL code = 1020) ABS NUCLEATED RBCS (test code = 0.00 K/UL 39214) CBC W/AUTO [id number] 00:00:00 Test Item Value Reference Range Interpretation Comments WBC (test code = 1001) 8.3 K/UL RBC (test code = 1002) 5.46 M/UL HEMOGLOBIN (test code = 1003) 16.5 G/DL HEMATOCRIT (test code = 1004) 47.9 % MCV (test code = 1005) 87.7 fL MCH (test code = 1006) 30.2 PG MCHC (test code = 1007) 34.4 G/DL RDW (test code = 1038) 13.4 % NEUTROPHILS (test code = 1008) 63.9 % LYMPHOCYTES (test code = 1010) 27.2 % MONOCYTES (test code = 1011) 6.0 % EOSINOPHILS (test code = 1012) 1.7 % BASOPHILS (test code = 1013) 1.0 % IMMATURE GRANULOCYTES (test 0.2 % code = 1036) NUCLEATED RBCS (test code = 0.0 /100WBC'S 1065) PLATELET COUNT (test code = 231 K/UL 1015) ABSOLUTE NEUTROPHILS (test code 5.32 K/UL = 1066) ABSOLUTE LYMPHOCYTES (test code 2.26 K/UL = 1067) ABSOLUTE MONOCYTES (test code = 0.50 K/UL 1068) ABSOLUTE EOSINOPHILS (test code 0.14 K/UL = 1040) ABSOLUTE BASOPHILS (test code = 0.08 K/UL 1069) ABS IMMATURE GRANULOCYTES (test 0.02 K/UL code = 1020) ABS NUCLEATED RBCS (test code = 0.00 K/UL 94535) CBC W/AUTO [id number] 00:00:00 Test Item Value Reference Range Interpretation Comments WBC (test code = 1001) 8.3 K/UL RBC (test code = 1002) 5.46 M/UL HEMOGLOBIN (test code = 1003) 16.5 G/DL HEMATOCRIT (test code = 1004) 47.9 % MCV (test code = 1005) 87.7 fL MCH (test code = 1006) 30.2 PG MCHC (test code = 1007) 34.4 G/DL RDW (test code = 1038) 13.4 % NEUTROPHILS (test code = 1008) 63.9 % LYMPHOCYTES (test code = 1010) 27.2 % MONOCYTES (test code = 1011) 6.0 % EOSINOPHILS (test code = 1012) 1.7 % BASOPHILS (test code = 1013) 1.0 % IMMATURE GRANULOCYTES (test 0.2 % code = 1036) NUCLEATED RBCS (test code = 0.0 /100WBC'S 1065) PLATELET COUNT (test code = 231 K/UL 1015) ABSOLUTE NEUTROPHILS (test code 5.32 K/UL = 1066) ABSOLUTE LYMPHOCYTES (test code 2.26 K/UL = 1067) ABSOLUTE MONOCYTES (test code = 0.50 K/UL 1068) ABSOLUTE EOSINOPHILS (test code 0.14 K/UL = 1040) ABSOLUTE BASOPHILS (test code = 0.08 K/UL 1069) ABS IMMATURE GRANULOCYTES (test 0.02 K/UL code = 1020) ABS NUCLEATED RBCS (test code = 0.00 K/UL 31514) CBC W/AUTO [id number] 00:00:00 Test Item Value Reference Range Interpretation Comments WBC (test code = 1001) 8.3 K/UL RBC (test code = 1002) 5.46 M/UL HEMOGLOBIN (test code = 1003) 16.5 G/DL HEMATOCRIT (test code = 1004) 47.9 % MCV (test code = 1005) 87.7 fL MCH (test code = 1006) 30.2 PG MCHC (test code = 1007) 34.4 G/DL RDW (test code = 1038) 13.4 % NEUTROPHILS (test code = 1008) 63.9 % LYMPHOCYTES (test code = 1010) 27.2 % MONOCYTES (test code = 1011) 6.0 % EOSINOPHILS (test code = 1012) 1.7 % BASOPHILS (test code = 1013) 1.0 % IMMATURE GRANULOCYTES (test 0.2 % code = 1036) NUCLEATED RBCS (test code = 0.0 /100WBC'S 1065) PLATELET COUNT (test code = 231 K/UL 1015) ABSOLUTE NEUTROPHILS (test code 5.32 K/UL = 1066) ABSOLUTE LYMPHOCYTES (test code 2.26 K/UL = 1067) ABSOLUTE MONOCYTES (test code = 0.50 K/UL 1068) ABSOLUTE EOSINOPHILS (test code 0.14 K/UL = 1040) ABSOLUTE BASOPHILS (test code = 0.08 K/UL 1069) ABS IMMATURE GRANULOCYTES (test 0.02 K/UL code = 1020) ABS NUCLEATED RBCS (test code = 0.00 K/UL 80567) CBC W/AUTO [id number] 00:00:00 Test Item Value Reference Range Interpretation Comments WBC (test code = 1001) 8.3 K/UL RBC (test code = 1002) 5.46 M/UL HEMOGLOBIN (test code = 1003) 16.5 G/DL HEMATOCRIT (test code = 1004) 47.9 % MCV (test code = 1005) 87.7 fL MCH (test code = 1006) 30.2 PG MCHC (test code = 1007) 34.4 G/DL RDW (test code = 1038) 13.4 % NEUTROPHILS (test code = 1008) 63.9 % LYMPHOCYTES (test code = 1010) 27.2 % MONOCYTES (test code = 1011) 6.0 % EOSINOPHILS (test code = 1012) 1.7 % BASOPHILS (test code = 1013) 1.0 % IMMATURE GRANULOCYTES (test 0.2 % code = 1036) NUCLEATED RBCS (test code = 0.0 /100WBC'S 1065) PLATELET COUNT (test code = 231 K/UL 1015) ABSOLUTE NEUTROPHILS (test code 5.32 K/UL = 1066) ABSOLUTE LYMPHOCYTES (test code 2.26 K/UL = 1067) ABSOLUTE MONOCYTES (test code = 0.50 K/UL 1068) ABSOLUTE EOSINOPHILS (test code 0.14 K/UL = 1040) ABSOLUTE BASOPHILS (test code = 0.08 K/UL 1069) ABS IMMATURE GRANULOCYTES (test 0.02 K/UL code = 1020) ABS NUCLEATED RBCS (test code = 0.00 K/UL 08114) COMPREHENSIVE METABOLIC [id number] 00:00:00 Test Item Value Reference Range Interpretation Comments GLUCOSE (test code = 2217) 93 MG/DL BUN (test code = 2208) 9 MG/DL CREATININE (test code = 2214) 0.63 MG/DL eGFR AMER. (test code 117 ML/MIN/1.73 = 52809) eGFR NON- AMER. (test 101 ML/MIN/1.73 code = 29538) CALC BUN/CREAT (test code = 14 RATIO 2235) SODIUM (test code = 2231) 142 MEQ/L POTASSIUM (test code = 2228) 4.4 MEQ/L CHLORIDE (test code = 2215) 104 MEQ/L CARBON DIOXIDE (test code = 26 MEQ/L 2206) CALCIUM (test code = 2209) 9.8 MG/DL PROTEIN, TOTAL (test code = 7.6 G/DL 2228) ALBUMIN (test code = 2201) 4.7 G/DL CALC GLOBULIN (test code = 2.9 G/DL 2240) CALC A/G RATIO (test code = 1.6 RATIO 2234) BILIRUBIN, TOTAL (test code = 0.8 MG/DL 2206) ALKALINE PHOSPHATASE (test 104 U/L code = 2204) AST (test code = 2218) 26 U/L ALT (test code = 2219) 30 U/L COMPREHENSIVE METABOLIC [id number] 00:00:00 Test Item Value Reference Range Interpretation Comments GLUCOSE (test code = 2217) 93 MG/DL BUN (test code = 2208) 9 MG/DL CREATININE (test code = 2214) 0.63 MG/DL eGFR AMER. (test code 117 ML/MIN/1.73 = 90255) eGFR NON- AMER. (test 101 ML/MIN/1.73 code = 21853) CALC BUN/CREAT (test code = 14 RATIO 2235) SODIUM (test code = 2231) 142 MEQ/L POTASSIUM (test code = 2228) 4.4 MEQ/L CHLORIDE (test code = 2215) 104 MEQ/L CARBON DIOXIDE (test code = 26 MEQ/L 2205) CALCIUM (test code = 2209) 9.8 MG/DL PROTEIN, TOTAL (test code = 7.6 G/DL 2228) ALBUMIN (test code = 2201) 4.7 G/DL CALC GLOBULIN (test code = 2.9 G/DL 2239) CALC A/G RATIO (test code = 1.6 RATIO 2233) BILIRUBIN, TOTAL (test code = 0.8 MG/DL 2206) ALKALINE PHOSPHATASE (test 104 U/L code = 2204) AST (test code = 2218) 26 U/L ALT (test code = 2219) 30 U/L [id number] 00:00:00 Test Item Value Reference Range Interpretation Comments AMYLASE (test code = 2205) 58 U/L [id number] 00:00:00 Test Item Value Reference Range Interpretation Comments AMYLASE (test code = 2205) 58 U/L [id number] 00:00:00 Test Item Value Reference Range Interpretation Comments LIPASE (test code = 2058) 26 U/L [id number] 00:00:00 Test Item Value Reference Range Interpretation Comments LIPASE (test code = 2058) 26 U/L [id number] 00:00:00 Test Item Value Reference Range Interpretation Comments LIPASE (test code = 2058) 26 U/L COMPREHENSIVE METABOLIC [id number] 00:00:00 Test Item Value Reference Range Interpretation Comments GLUCOSE (test code = 2217) 93 MG/DL BUN (test code = 2208) 9 MG/DL CREATININE (test code = 2214) 0.63 MG/DL eGFR AMER. (test code 117 ML/MIN/1.73 = 87071) eGFR NON- AMER. (test 101 ML/MIN/1.73 code = 53118) CALC BUN/CREAT (test code = 14 RATIO 2234) SODIUM (test code = 2231) 142 MEQ/L POTASSIUM (test code = 2228) 4.4 MEQ/L CHLORIDE (test code = 2215) 104 MEQ/L CARBON DIOXIDE (test code = 26 MEQ/L 2205) CALCIUM (test code = 2209) 9.8 MG/DL PROTEIN, TOTAL (test code = 7.6 G/DL 2228) ALBUMIN (test code = 2201) 4.7 G/DL CALC GLOBULIN (test code = 2.9 G/DL 0) CALC A/G RATIO (test code = 1.6 RATIO 2234) BILIRUBIN, TOTAL (test code = 0.8 MG/DL 2206) ALKALINE PHOSPHATASE (test 104 U/L code = 2204) AST (test code = 2218) 26 U/L ALT (test code = 2219) 30 U/L [id number] 00:00:00 Test Item Value Reference Range Interpretation Comments AMYLASE (test code = 2204) 58 U/L [id number] 00:00:00 Test Item Value Reference Range Interpretation Comments LIPASE (test code = 2057) 26 U/L [id number] 00:00:00 Test Item Value Reference Range Interpretation Comments LIPASE (test code = 2057) 26 U/L CBC W/AUTO [id number] 00:00:00 Test Item Value Reference Range Interpretation Comments WBC (test code = 1001) 8.3 K/UL RBC (test code = 1002) 5.46 M/UL HEMOGLOBIN (test code = 1003) 16.5 G/DL HEMATOCRIT (test code = 1004) 47.9 % MCV (test code = 1005) 87.7 fL MCH (test code = 1006) 30.2 PG MCHC (test code = 1007) 34.4 G/DL RDW (test code = 1038) 13.4 % NEUTROPHILS (test code = 1008) 63.9 % LYMPHOCYTES (test code = 1010) 27.2 % MONOCYTES (test code = 1011) 6.0 % EOSINOPHILS (test code = 1012) 1.7 % BASOPHILS (test code = 1013) 1.0 % IMMATURE GRANULOCYTES (test 0.2 % code = 1036) NUCLEATED RBCS (test code = 0.0 /100WBC'S 1065) PLATELET COUNT (test code = 231 K/UL 1015) ABSOLUTE NEUTROPHILS (test code 5.32 K/UL = 1066) ABSOLUTE LYMPHOCYTES (test code 2.26 K/UL = 1067) ABSOLUTE MONOCYTES (test code = 0.50 K/UL 1068) ABSOLUTE EOSINOPHILS (test code 0.14 K/UL = 1040) ABSOLUTE BASOPHILS (test code = 0.08 K/UL 1069) ABS IMMATURE GRANULOCYTES (test 0.02 K/UL code = 1020) ABS NUCLEATED RBCS (test code = 0.00 K/UL 29830) CBC W/AUTO [id number] 00:00:00 Test Item Value Reference Range Interpretation Comments WBC (test code = 1001) 8.3 K/UL RBC (test code = 1002) 5.46 M/UL HEMOGLOBIN (test code = 1003) 16.5 G/DL HEMATOCRIT (test code = 1004) 47.9 % MCV (test code = 1005) 87.7 fL MCH (test code = 1006) 30.2 PG MCHC (test code = 1007) 34.4 G/DL RDW (test code = 1038) 13.4 % NEUTROPHILS (test code = 1008) 63.9 % LYMPHOCYTES (test code = 1010) 27.2 % MONOCYTES (test code = 1011) 6.0 % EOSINOPHILS (test code = 1012) 1.7 % BASOPHILS (test code = 1013) 1.0 % IMMATURE GRANULOCYTES (test 0.2 % code = 1036) NUCLEATED RBCS (test code = 0.0 /100WBC'S 1065) PLATELET COUNT (test code = 231 K/UL 1015) ABSOLUTE NEUTROPHILS (test code 5.32 K/UL = 1066) ABSOLUTE LYMPHOCYTES (test code 2.26 K/UL = 1067) ABSOLUTE MONOCYTES (test code = 0.50 K/UL 1068) ABSOLUTE EOSINOPHILS (test code 0.14 K/UL = 1040) ABSOLUTE BASOPHILS (test code = 0.08 K/UL 1069) ABS IMMATURE GRANULOCYTES (test 0.02 K/UL code = 1020) ABS NUCLEATED RBCS (test code = 0.00 K/UL 69756) COMPREHENSIVE METABOLIC [id number] 00:00:00 Test Item Value Reference Range Interpretation Comments GLUCOSE (test code = 2217) 93 MG/DL BUN (test code = 2208) 9 MG/DL CREATININE (test code = 2214) 0.63 MG/DL eGFR AMER. (test code 117 ML/MIN/1.73 = 92585) eGFR NON- AMER. (test 101 ML/MIN/1.73 code = 52199) CALC BUN/CREAT (test code = 14 RATIO 5) SODIUM (test code = 2231) 142 MEQ/L POTASSIUM (test code = 2228) 4.4 MEQ/L CHLORIDE (test code = 2215) 104 MEQ/L CARBON DIOXIDE (test code = 26 MEQ/L 2205) CALCIUM (test code = 2209) 9.8 MG/DL PROTEIN, TOTAL (test code = 7.6 G/DL 2228) ALBUMIN (test code = 2201) 4.7 G/DL CALC GLOBULIN (test code = 2.9 G/DL 2239) CALC A/G RATIO (test code = 1.6 RATIO 2233) BILIRUBIN, TOTAL (test code = 0.8 MG/DL 2206) ALKALINE PHOSPHATASE (test 104 U/L code = 2203) AST (test code = 2217) 26 U/L ALT (test code = 221) 30 U/L [id number] 00:00:00 Test Item Value Reference Range Interpretation Comments AMYLASE (test code = 2204) 58 U/L [id number] 00:00:00 Test Item Value Reference Range Interpretation Comments LIPASE (test code = 2057) 26 U/L [id number] 00:00:00 Test Item Value Reference Range Interpretation Comments LIPASE (test code = 2057) 26 U/L CBC W/AUTO [id number] 00:00:00 Test Item Value Reference Range Interpretation Comments WBC (test code = 1001) 8.3 K/UL RBC (test code = 1002) 5.46 M/UL HEMOGLOBIN (test code = 1003) 16.5 G/DL HEMATOCRIT (test code = 1004) 47.9 % MCV (test code = 1005) 87.7 fL MCH (test code = 1006) 30.2 PG MCHC (test code = 1007) 34.4 G/DL RDW (test code = 1038) 13.4 % NEUTROPHILS (test code = 1008) 63.9 % LYMPHOCYTES (test code = 1010) 27.2 % MONOCYTES (test code = 1011) 6.0 % EOSINOPHILS (test code = 1012) 1.7 % BASOPHILS (test code = 1013) 1.0 % IMMATURE GRANULOCYTES (test 0.2 % code = 1036) NUCLEATED RBCS (test code = 0.0 /100WBC'S 1065) PLATELET COUNT (test code = 231 K/UL 1015) ABSOLUTE NEUTROPHILS (test code 5.32 K/UL = 1066) ABSOLUTE LYMPHOCYTES (test code 2.26 K/UL = 1067) ABSOLUTE MONOCYTES (test code = 0.50 K/UL 1068) ABSOLUTE EOSINOPHILS (test code 0.14 K/UL = 1040) ABSOLUTE BASOPHILS (test code = 0.08 K/UL 1069) ABS IMMATURE GRANULOCYTES (test 0.02 K/UL code = 1020) ABS NUCLEATED RBCS (test code = 0.00 K/UL 00812) CBC W/AUTO [id number] 00:00:00 Test Item Value Reference Range Interpretation Comments WBC (test code = 1001) 8.3 K/UL RBC (test code = 1002) 5.46 M/UL HEMOGLOBIN (test code = 1003) 16.5 G/DL HEMATOCRIT (test code = 1004) 47.9 % MCV (test code = 1005) 87.7 fL MCH (test code = 1006) 30.2 PG MCHC (test code = 1007) 34.4 G/DL RDW (test code = 1038) 13.4 % NEUTROPHILS (test code = 1008) 63.9 % LYMPHOCYTES (test code = 1010) 27.2 % MONOCYTES (test code = 1011) 6.0 % EOSINOPHILS (test code = 1012) 1.7 % BASOPHILS (test code = 1013) 1.0 % IMMATURE GRANULOCYTES (test 0.2 % code = 1036) NUCLEATED RBCS (test code = 0.0 /100WBC'S 1065) PLATELET COUNT (test code = 231 K/UL 1015) ABSOLUTE NEUTROPHILS (test code 5.32 K/UL = 1066) ABSOLUTE LYMPHOCYTES (test code 2.26 K/UL = 1067) ABSOLUTE MONOCYTES (test code = 0.50 K/UL 1068) ABSOLUTE EOSINOPHILS (test code 0.14 K/UL = 1040) ABSOLUTE BASOPHILS (test code = 0.08 K/UL 1069) ABS IMMATURE GRANULOCYTES (test 0.02 K/UL code = 1020) ABS NUCLEATED RBCS (test code = 0.00 K/UL 76723) COMPREHENSIVE METABOLIC [id number] 00:00:00 Test Item Value Reference Range Interpretation Comments GLUCOSE (test code = 2217) 93 MG/DL BUN (test code = 2208) 9 MG/DL CREATININE (test code = 2214) 0.63 MG/DL eGFR AMER. (test code 117 ML/MIN/1.73 = 43191) eGFR NON- AMER. (test 101 ML/MIN/1.73 code = 92120) CALC BUN/CREAT (test code = 14 RATIO 2235) SODIUM (test code = 2231) 142 MEQ/L POTASSIUM (test code = 2228) 4.4 MEQ/L CHLORIDE (test code = 2215) 104 MEQ/L CARBON DIOXIDE (test code = 26 MEQ/L 2205) CALCIUM (test code = 2209) 9.8 MG/DL PROTEIN, TOTAL (test code = 7.6 G/DL 2228) ALBUMIN (test code = 2201) 4.7 G/DL CALC GLOBULIN (test code = 2.9 G/DL 2239) CALC A/G RATIO (test code = 1.6 RATIO 4) BILIRUBIN, TOTAL (test code = 0.8 MG/DL 2206) ALKALINE PHOSPHATASE (test 104 U/L code = 220) AST (test code = 2218) 26 U/L ALT (test code = 2219) 30 U/L [id number] 00:00:00 Test Item Value Reference Range Interpretation Comments AMYLASE (test code = 5) 58 U/L [id number] 00:00:00 Test Item Value Reference Range Interpretation Comments LIPASE (test code = 2057) 26 U/L [id number] 00:00:00 Test Item Value Reference Range Interpretation Comments LIPASE (test code = 2057) 26 U/L CBC W/AUTO [id number] 00:00:00 Test Item Value Reference Range Interpretation Comments WBC (test code = 1001) 8.3 K/UL RBC (test code = 1002) 5.46 M/UL HEMOGLOBIN (test code = 1003) 16.5 G/DL HEMATOCRIT (test code = 1004) 47.9 % MCV (test code = 1005) 87.7 fL MCH (test code = 1006) 30.2 PG MCHC (test code = 1007) 34.4 G/DL RDW (test code = 1038) 13.4 % NEUTROPHILS (test code = 1008) 63.9 % LYMPHOCYTES (test code = 1010) 27.2 % MONOCYTES (test code = 1011) 6.0 % EOSINOPHILS (test code = 1012) 1.7 % BASOPHILS (test code = 1013) 1.0 % IMMATURE GRANULOCYTES (test 0.2 % code = 1036) NUCLEATED RBCS (test code = 0.0 /100WBC'S 1065) PLATELET COUNT (test code = 231 K/UL 1015) ABSOLUTE NEUTROPHILS (test code 5.32 K/UL = 1066) ABSOLUTE LYMPHOCYTES (test code 2.26 K/UL = 1067) ABSOLUTE MONOCYTES (test code = 0.50 K/UL 1068) ABSOLUTE EOSINOPHILS (test code 0.14 K/UL = 1040) ABSOLUTE BASOPHILS (test code = 0.08 K/UL 1069) ABS IMMATURE GRANULOCYTES (test 0.02 K/UL code = 1020) ABS NUCLEATED RBCS (test code = 0.00 K/UL 67733) CBC W/AUTO [id number] 00:00:00 Test Item Value Reference Range Interpretation Comments WBC (test code = 1001) 8.3 K/UL RBC (test code = 1002) 5.46 M/UL HEMOGLOBIN (test code = 1003) 16.5 G/DL HEMATOCRIT (test code = 1004) 47.9 % MCV (test code = 1005) 87.7 fL MCH (test code = 1006) 30.2 PG MCHC (test code = 1007) 34.4 G/DL RDW (test code = 1038) 13.4 % NEUTROPHILS (test code = 1008) 63.9 % LYMPHOCYTES (test code = 1010) 27.2 % MONOCYTES (test code = 1011) 6.0 % EOSINOPHILS (test code = 1012) 1.7 % BASOPHILS (test code = 1013) 1.0 % IMMATURE GRANULOCYTES (test 0.2 % code = 1036) NUCLEATED RBCS (test code = 0.0 /100WBC'S 1065) PLATELET COUNT (test code = 231 K/UL 1015) ABSOLUTE NEUTROPHILS (test code 5.32 K/UL = 1066) ABSOLUTE LYMPHOCYTES (test code 2.26 K/UL = 1067) ABSOLUTE MONOCYTES (test code = 0.50 K/UL 1068) ABSOLUTE EOSINOPHILS (test code 0.14 K/UL = 1040) ABSOLUTE BASOPHILS (test code = 0.08 K/UL 1069) ABS IMMATURE GRANULOCYTES (test 0.02 K/UL code = 1020) ABS NUCLEATED RBCS (test code = 0.00 K/UL 47699) CBC W/AUTO [id number] 00:00:00 Test Item Value Reference Range Interpretation Comments WBC (test code = 1001) 8.3 K/UL RBC (test code = 1002) 5.46 M/UL HEMOGLOBIN (test code = 1003) 16.5 G/DL HEMATOCRIT (test code = 1004) 47.9 % MCV (test code = 1005) 87.7 fL MCH (test code = 1006) 30.2 PG MCHC (test code = 1007) 34.4 G/DL RDW (test code = 1038) 13.4 % NEUTROPHILS (test code = 1008) 63.9 % LYMPHOCYTES (test code = 1010) 27.2 % MONOCYTES (test code = 1011) 6.0 % EOSINOPHILS (test code = 1012) 1.7 % BASOPHILS (test code = 1013) 1.0 % IMMATURE GRANULOCYTES (test 0.2 % code = 1036) NUCLEATED RBCS (test code = 0.0 /100WBC'S 1065) PLATELET COUNT (test code = 231 K/UL 1015) ABSOLUTE NEUTROPHILS (test code 5.32 K/UL = 1066) ABSOLUTE LYMPHOCYTES (test code 2.26 K/UL = 1067) ABSOLUTE MONOCYTES (test code = 0.50 K/UL 1068) ABSOLUTE EOSINOPHILS (test code 0.14 K/UL = 1040) ABSOLUTE BASOPHILS (test code = 0.08 K/UL 1069) ABS IMMATURE GRANULOCYTES (test 0.02 K/UL code = 1020) ABS NUCLEATED RBCS (test code = 0.00 K/UL 44587) COMPREHENSIVE METABOLIC [id number] 00:00:00 Test Item Value Reference Range Interpretation Comments GLUCOSE (test code = 2217) 93 MG/DL BUN (test code = 2208) 9 MG/DL CREATININE (test code = 2214) 0.63 MG/DL eGFR AMER. (test code 117 ML/MIN/1.73 = 38993) eGFR NON- AMER. (test 101 ML/MIN/1.73 code = 33605) CALC BUN/CREAT (test code = 14 RATIO 2235) SODIUM (test code = 2231) 142 MEQ/L POTASSIUM (test code = 2228) 4.4 MEQ/L CHLORIDE (test code = 2215) 104 MEQ/L CARBON DIOXIDE (test code = 26 MEQ/L 220) CALCIUM (test code = 2209) 9.8 MG/DL PROTEIN, TOTAL (test code = 7.6 G/DL 222) ALBUMIN (test code = 2201) 4.7 G/DL CALC GLOBULIN (test code = 2.9 G/DL 2240) CALC A/G RATIO (test code = 1.6 RATIO 2234) BILIRUBIN, TOTAL (test code = 0.8 MG/DL 2206) ALKALINE PHOSPHATASE (test 104 U/L code = 2204) AST (test code = 2218) 26 U/L ALT (test code = 2219) 30 U/L COMPREHENSIVE METABOLIC [id number] 00:00:00 Test Item Value Reference Range Interpretation Comments GLUCOSE (test code = 2217) 93 MG/DL BUN (test code = 2208) 9 MG/DL CREATININE (test code = 2214) 0.63 MG/DL eGFR AMER. (test code 117 ML/MIN/1.73 = 83674) eGFR NON- AMER. (test 101 ML/MIN/1.73 code = 91551) CALC BUN/CREAT (test code = 14 RATIO 2235) SODIUM (test code = 2231) 142 MEQ/L POTASSIUM (test code = 2228) 4.4 MEQ/L CHLORIDE (test code = 2215) 104 MEQ/L CARBON DIOXIDE (test code = 26 MEQ/L 2205) CALCIUM (test code = 2209) 9.8 MG/DL PROTEIN, TOTAL (test code = 7.6 G/DL 2228) ALBUMIN (test code = 2201) 4.7 G/DL CALC GLOBULIN (test code = 2.9 G/DL 2240) CALC A/G RATIO (test code = 1.6 RATIO 2234) BILIRUBIN, TOTAL (test code = 0.8 MG/DL 7) ALKALINE PHOSPHATASE (test 104 U/L code = 2204) AST (test code = 2218) 26 U/L ALT (test code = 2219) 30 U/L [id number] 00:00:00 Test Item Value Reference Range Interpretation Comments AMYLASE (test code = 2205) 58 U/L [id number] 00:00:00 Test Item Value Reference Range Interpretation Comments AMYLASE (test code = 2205) 58 U/L SARS-CoV-2 (COVID-19) by RT-PCR (HIGH RISK)2020-12-27 00:00:00 Test Item Value Reference Range Interpretation Comments SARS-CoV-2 INTERPRETATION (test NEGATIVE code = 33964) SOURCE (test code = 17039) NOT SPECIFIED SARS-CoV-2 (COVID-19) by RT-PCR (HIGH RISK)2020-12-27 00:00:00 Test Item Value Reference Range Interpretation Comments SARS-CoV-2 INTERPRETATION (test NEGATIVE code = 01185) SOURCE (test code = 68281) NOT SPECIFIED SARS-CoV-2 (COVID-19) by RT-PCR (HIGH RISK)2020-12-27 00:00:00 Test Item Value Reference Range Interpretation Comments SARS-CoV-2 INTERPRETATION (test NEGATIVE code = 72076) SOURCE (test code = 24102) NOT SPECIFIED SARS-CoV-2 (COVID-19) by RT-PCR (HIGH RISK)2020-12-27 00:00:00 Test Item Value Reference Range Interpretation Comments SARS-CoV-2 INTERPRETATION (test NEGATIVE code = 70773) SOURCE (test code = 36679) NOT SPECIFIED SARS-CoV-2 (COVID-19) by RT-PCR (HIGH RISK)2020-12-27 00:00:00 Test Item Value Reference Range Interpretation Comments SARS-CoV-2 INTERPRETATION (test NEGATIVE code = 06622) SOURCE (test code = 23897) NOT SPECIFIED SARS-CoV-2 (COVID-19) by RT-PCR (HIGH RISK)2020-12-27 00:00:00 Test Item Value Reference Range Interpretation Comments SARS-CoV-2 INTERPRETATION (test NEGATIVE code = 79158) SOURCE (test code = 47083) NOT SPECIFIED SARS-CoV-2 (COVID-19) by RT-PCR (HIGH RISK)2020-12-27 00:00:00 Test Item Value Reference Range Interpretation Comments SARS-CoV-2 INTERPRETATION (test NEGATIVE code = 37666) SOURCE (test code = 20052) NOT SPECIFIED SARS-CoV-2 (COVID-19) by RT-PCR (HIGH RISK)2020-12-27 00:00:00 Test Item Value Reference Range Interpretation Comments SARS-CoV-2 INTERPRETATION (test NEGATIVE code = 05333) SOURCE (test code = 37414) NOT SPECIFIED SARS-CoV-2 (COVID-19) by RT-PCR (HIGH RISK)2020-12-27 00:00:00 Test Item Value Reference Range Interpretation Comments SARS-CoV-2 INTERPRETATION (test NEGATIVE code = 06166) SOURCE (test code = 54833) NOT SPECIFIED RHEUMATOID FACTOR, [id number] 00:00:00 Test Item Value Reference Range Interpretation Comments RHEUMATOID FACTOR, QUANT (test code <10 IU/ML = 3502) RHEUMATOID FACTOR, [id number] 00:00:00 Test Item Value Reference Range Interpretation Comments RHEUMATOID FACTOR, QUANT (test code <10 IU/ML = 3502) RHEUMATOID FACTOR, [id number] 00:00:00 Test Item Value Reference Range Interpretation Comments RHEUMATOID FACTOR, QUANT (test code <10 IU/ML = 3502) MANSOOR (ANTI-NUCLEAR AB) WITH REFLEX [id number] 00:00:00 Test Item Value Reference Range Interpretation Comments ANTI-NUCLEAR ANTIBODIES (test code = NEGATIVE 3506) MANSOOR (ANTI-NUCLEAR AB) WITH REFLEX [id number] 00:00:00 Test Item Value Reference Range Interpretation Comments ANTI-NUCLEAR ANTIBODIES (test code = NEGATIVE 3506) CCP [id number] 00:00:00 Test Item Value Reference Range Interpretation Comments CCP IgG (test code = 08294) <0.5 U/ML CCP [id number] 00:00:00 Test Item Value Reference Range Interpretation Comments CCP IgG (test code = 16490) <0.5 U/ML CCP [id number] 00:00:00 Test Item Value Reference Range Interpretation Comments CCP IgG (test code = 37228) <0.5 U/ML CBC W/AUTO [id number] 00:00:00 Test Item Value Reference Range Interpretation Comments WBC (test code = 1001) 5.1 K/UL RBC (test code = 1002) 5.10 M/UL HEMOGLOBIN (test code = 1003) 15.8 G/DL HEMATOCRIT (test code = 1004) 45.7 % MCV (test code = 1005) 89.6 fL MCH (test code = 1006) 31.0 PG MCHC (test code = 1007) 34.6 G/DL RDW (test code = 1038) 12.7 % NEUTROPHILS (test code = 1008) 45.3 % LYMPHOCYTES (test code = 1010) 40.7 % MONOCYTES (test code = 1011) 9.5 % EOSINOPHILS (test code = 1012) 3.3 % BASOPHILS (test code = 1013) 1.2 % PLATELET COUNT (test code = 1015) 192 K/UL CBC W/AUTO [id number] 00:00:00 Test Item Value Reference Range Interpretation Comments WBC (test code = 1001) 5.1 K/UL RBC (test code = 1002) 5.10 M/UL HEMOGLOBIN (test code = 1003) 15.8 G/DL HEMATOCRIT (test code = 1004) 45.7 % MCV (test code = 1005) 89.6 fL MCH (test code = 1006) 31.0 PG MCHC (test code = 1007) 34.6 G/DL RDW (test code = 1038) 12.7 % NEUTROPHILS (test code = 1008) 45.3 % LYMPHOCYTES (test code = 1010) 40.7 % MONOCYTES (test code = 1011) 9.5 % EOSINOPHILS (test code = 1012) 3.3 % BASOPHILS (test code = 1013) 1.2 % PLATELET COUNT (test code = 1015) 192 K/UL CBC W/AUTO [id number] 00:00:00 Test Item Value Reference Range Interpretation Comments WBC (test code = 1001) 5.1 K/UL RBC (test code = 1002) 5.10 M/UL HEMOGLOBIN (test code = 1003) 15.8 G/DL HEMATOCRIT (test code = 1004) 45.7 % MCV (test code = 1005) 89.6 fL MCH (test code = 1006) 31.0 PG MCHC (test code = 1007) 34.6 G/DL RDW (test code = 1038) 12.7 % NEUTROPHILS (test code = 1008) 45.3 % LYMPHOCYTES (test code = 1010) 40.7 % MONOCYTES (test code = 1011) 9.5 % EOSINOPHILS (test code = 1012) 3.3 % BASOPHILS (test code = 1013) 1.2 % PLATELET COUNT (test code = 1015) 192 K/UL [id number] 00:00:00 Test Item Value Reference Range Interpretation Comments TSH, THIRD GENERATION (test code 2.790 UIU/ML = 2821) [id number] 00:00:00 Test Item Value Reference Range Interpretation Comments TSH, THIRD GENERATION (test code 2.790 UIU/ML = 2821) [id number] 00:00:00 Test Item Value Reference Range Interpretation Comments TSH, THIRD GENERATION (test code 2.790 UIU/ML = 2821) COMPREHENSIVE METABOLIC [id number] 00:00:00 Test Item Value Reference Range Interpretation Comments GLUCOSE (test code = 2217) 113 MG/DL BUN (test code = 2208) 12 MG/DL CREATININE (test code = 2214) 0.64 MG/DL eGFR AMER. (test code 117 ML/MIN/1.73 = 46036) eGFR NON- AMER. (test 101 ML/MIN/1.73 code = 81305) CALC BUN/CREAT (test code = 19 RATIO 2235) SODIUM (test code = 2231) 141 MEQ/L POTASSIUM (test code = 2228) 4.3 MEQ/L CHLORIDE (test code = 2215) 104 MEQ/L CARBON DIOXIDE (test code = 25 MEQ/L 2205) CALCIUM (test code = 2209) 9.5 MG/DL PROTEIN, TOTAL (test code = 7.4 G/DL 2228) ALBUMIN (test code = 2201) 4.6 G/DL CALC GLOBULIN (test code = 2.8 G/DL 2240) CALC A/G RATIO (test code = 1.6 RATIO 2234) BILIRUBIN, TOTAL (test code = 0.4 MG/DL 2206) ALKALINE PHOSPHATASE (test 90 U/L code = 2204) AST (test code = 2218) 19 U/L ALT (test code = 2219) 29 U/L COMPREHENSIVE METABOLIC [id number] 00:00:00 Test Item Value Reference Range Interpretation Comments GLUCOSE (test code = 2217) 113 MG/DL BUN (test code = 2208) 12 MG/DL CREATININE (test code = 2214) 0.64 MG/DL eGFR AMER. (test code 117 ML/MIN/1.73 = 72493) eGFR NON- AMER. (test 101 ML/MIN/1.73 code = 87713) CALC BUN/CREAT (test code = 19 RATIO 2235) SODIUM (test code = 2231) 141 MEQ/L POTASSIUM (test code = 2228) 4.3 MEQ/L CHLORIDE (test code = 2215) 104 MEQ/L CARBON DIOXIDE (test code = 25 MEQ/L 2205) CALCIUM (test code = 2209) 9.5 MG/DL PROTEIN, TOTAL (test code = 7.4 G/DL 2228) ALBUMIN (test code = 2201) 4.6 G/DL CALC GLOBULIN (test code = 2.8 G/DL 2240) CALC A/G RATIO (test code = 1.6 RATIO 2234) BILIRUBIN, TOTAL (test code = 0.4 MG/DL 2206) ALKALINE PHOSPHATASE (test 90 U/L code = 2204) AST (test code = 2218) 19 U/L ALT (test code = 2219) 29 U/L LIPID [id number] 00:00:00 Test Item Value Reference Range Interpretation Comments CHOLESTEROL (test code = 2210) 225 MG/DL TRIGLYCERIDES (test code = 2232) 196 MG/DL HDL CHOLESTEROL (test code = 2220) 50 MG/DL CALC LDL CHOL (test code = 2237) 141 MG/DL RISK RATIO LDL/HDL (test code = 2.82 RATIO 2238) LIPID [id number] 00:00:00 Test Item Value Reference Range Interpretation Comments CHOLESTEROL (test code = 2210) 225 MG/DL TRIGLYCERIDES (test code = 2232) 196 MG/DL HDL CHOLESTEROL (test code = 2220) 50 MG/DL CALC LDL CHOL (test code = 2237) 141 MG/DL RISK RATIO LDL/HDL (test code = 2.82 RATIO 2238) RHEUMATOID FACTOR, [id number] 00:00:00 Test Item Value Reference Range Interpretation Comments RHEUMATOID FACTOR, QUANT (test code <10 IU/ML = 3502) RHEUMATOID FACTOR, [id number] 00:00:00 Test Item Value Reference Range Interpretation Comments RHEUMATOID FACTOR, QUANT (test code <10 IU/ML = 3502) RHEUMATOID FACTOR, [id number] 00:00:00 Test Item Value Reference Range Interpretation Comments RHEUMATOID FACTOR, QUANT (test code <10 IU/ML = 3502) MANSOOR (ANTI-NUCLEAR AB) WITH REFLEX [id number] 00:00:00 Test Item Value Reference Range Interpretation Comments ANTI-NUCLEAR ANTIBODIES (test code = NEGATIVE 6) MANSOOR (ANTI-NUCLEAR AB) WITH REFLEX [id number] 00:00:00 Test Item Value Reference Range Interpretation Comments ANTI-NUCLEAR ANTIBODIES (test code = NEGATIVE 3506) CCP [id number] 00:00:00 Test Item Value Reference Range Interpretation Comments CCP IgG (test code = 46283) <0.5 U/ML CCP [id number] 00:00:00 Test Item Value Reference Range Interpretation Comments CCP IgG (test code = 78063) <0.5 U/ML CCP [id number] 00:00:00 Test Item Value Reference Range Interpretation Comments CCP IgG (test code = 77552) <0.5 U/ML CBC W/AUTO [id number] 00:00:00 Test Item Value Reference Range Interpretation Comments WBC (test code = 1001) 5.1 K/UL RBC (test code = 1002) 5.10 M/UL HEMOGLOBIN (test code = 1003) 15.8 G/DL HEMATOCRIT (test code = 1004) 45.7 % MCV (test code = 1005) 89.6 fL MCH (test code = 1006) 31.0 PG MCHC (test code = 1007) 34.6 G/DL RDW (test code = 1038) 12.7 % NEUTROPHILS (test code = 1008) 45.3 % LYMPHOCYTES (test code = 1010) 40.7 % MONOCYTES (test code = 1011) 9.5 % EOSINOPHILS (test code = 1012) 3.3 % BASOPHILS (test code = 1013) 1.2 % PLATELET COUNT (test code = 1015) 192 K/UL CBC W/AUTO [id number] 00:00:00 Test Item Value Reference Range Interpretation Comments WBC (test code = 1001) 5.1 K/UL RBC (test code = 1002) 5.10 M/UL HEMOGLOBIN (test code = 1003) 15.8 G/DL HEMATOCRIT (test code = 1004) 45.7 % MCV (test code = 1005) 89.6 fL MCH (test code = 1006) 31.0 PG MCHC (test code = 1007) 34.6 G/DL RDW (test code = 1038) 12.7 % NEUTROPHILS (test code = 1008) 45.3 % LYMPHOCYTES (test code = 1010) 40.7 % MONOCYTES (test code = 1011) 9.5 % EOSINOPHILS (test code = 1012) 3.3 % BASOPHILS (test code = 1013) 1.2 % PLATELET COUNT (test code = 1015) 192 K/UL CBC W/AUTO [id number] 00:00:00 Test Item Value Reference Range Interpretation Comments WBC (test code = 1001) 5.1 K/UL RBC (test code = 1002) 5.10 M/UL HEMOGLOBIN (test code = 1003) 15.8 G/DL HEMATOCRIT (test code = 1004) 45.7 % MCV (test code = 1005) 89.6 fL MCH (test code = 1006) 31.0 PG MCHC (test code = 1007) 34.6 G/DL RDW (test code = 1038) 12.7 % NEUTROPHILS (test code = 1008) 45.3 % LYMPHOCYTES (test code = 1010) 40.7 % MONOCYTES (test code = 1011) 9.5 % EOSINOPHILS (test code = 1012) 3.3 % BASOPHILS (test code = 1013) 1.2 % PLATELET COUNT (test code = 1015) 192 K/UL [id number] 00:00:00 Test Item Value Reference Range Interpretation Comments TSH, THIRD GENERATION (test code 2.790 UIU/ML = 2821) [id number] 00:00:00 Test Item Value Reference Range Interpretation Comments TSH, THIRD GENERATION (test code 2.790 UIU/ML = 2821) [id number] 00:00:00 Test Item Value Reference Range Interpretation Comments TSH, THIRD GENERATION (test code 2.790 UIU/ML = 2821) COMPREHENSIVE METABOLIC [id number] 00:00:00 Test Item Value Reference Range Interpretation Comments GLUCOSE (test code = 2217) 113 MG/DL BUN (test code = 2208) 12 MG/DL CREATININE (test code = 2214) 0.64 MG/DL eGFR AMER. (test code 117 ML/MIN/1.73 = 13011) eGFR NON- AMER. (test 101 ML/MIN/1.73 code = 16716) CALC BUN/CREAT (test code = 19 RATIO 2235) SODIUM (test code = 2231) 141 MEQ/L POTASSIUM (test code = 2228) 4.3 MEQ/L CHLORIDE (test code = 2215) 104 MEQ/L CARBON DIOXIDE (test code = 25 MEQ/L 2205) CALCIUM (test code = 2209) 9.5 MG/DL PROTEIN, TOTAL (test code = 7.4 G/DL 2228) ALBUMIN (test code = 2201) 4.6 G/DL CALC GLOBULIN (test code = 2.8 G/DL 2240) CALC A/G RATIO (test code = 1.6 RATIO 2234) BILIRUBIN, TOTAL (test code = 0.4 MG/DL 2206) ALKALINE PHOSPHATASE (test 90 U/L code = 2204) AST (test code = 2218) 19 U/L ALT (test code = 2219) 29 U/L COMPREHENSIVE METABOLIC [id number] 00:00:00 Test Item Value Reference Range Interpretation Comments GLUCOSE (test code = 2217) 113 MG/DL BUN (test code = 2208) 12 MG/DL CREATININE (test code = 2214) 0.64 MG/DL eGFR AMER. (test code 117 ML/MIN/1.73 = 04949) eGFR NON- AMER. (test 101 ML/MIN/1.73 code = 55646) CALC BUN/CREAT (test code = 19 RATIO 2235) SODIUM (test code = 2231) 141 MEQ/L POTASSIUM (test code = 2228) 4.3 MEQ/L CHLORIDE (test code = 2215) 104 MEQ/L CARBON DIOXIDE (test code = 25 MEQ/L 2205) CALCIUM (test code = 2209) 9.5 MG/DL PROTEIN, TOTAL (test code = 7.4 G/DL 2228) ALBUMIN (test code = 2201) 4.6 G/DL CALC GLOBULIN (test code = 2.8 G/DL 2240) CALC A/G RATIO (test code = 1.6 RATIO 2234) BILIRUBIN, TOTAL (test code = 0.4 MG/DL 2206) ALKALINE PHOSPHATASE (test 90 U/L code = 2204) AST (test code = 2218) 19 U/L ALT (test code = 2219) 29 U/L COMPREHENSIVE METABOLIC [id number] 00:00:00 Test Item Value Reference Range Interpretation Comments GLUCOSE (test code = 2217) 113 MG/DL BUN (test code = 2208) 12 MG/DL CREATININE (test code = 2214) 0.64 MG/DL eGFR AMER. (test code 117 ML/MIN/1.73 = 97592) eGFR NON- AMER. (test 101 ML/MIN/1.73 code = 82066) CALC BUN/CREAT (test code = 19 RATIO 2235) SODIUM (test code = 2231) 141 MEQ/L POTASSIUM (test code = 2228) 4.3 MEQ/L CHLORIDE (test code = 2215) 104 MEQ/L CARBON DIOXIDE (test code = 25 MEQ/L 2205) CALCIUM (test code = 2209) 9.5 MG/DL PROTEIN, TOTAL (test code = 7.4 G/DL 2228) ALBUMIN (test code = 2201) 4.6 G/DL CALC GLOBULIN (test code = 2.8 G/DL 224) CALC A/G RATIO (test code = 1.6 RATIO 2233) BILIRUBIN, TOTAL (test code = 0.4 MG/DL 2206) ALKALINE PHOSPHATASE (test 90 U/L code = 2204) AST (test code = 2218) 19 U/L ALT (test code = 2219) 29 U/L LIPID [id number] 00:00:00 Test Item Value Reference Range Interpretation Comments CHOLESTEROL (test code = 2210) 225 MG/DL TRIGLYCERIDES (test code = 2232) 196 MG/DL HDL CHOLESTEROL (test code = 2220) 50 MG/DL CALC LDL CHOL (test code = 2237) 141 MG/DL RISK RATIO LDL/HDL (test code = 2.82 RATIO 2238) LIPID [id number] 00:00:00 Test Item Value Reference Range Interpretation Comments CHOLESTEROL (test code = 2210) 225 MG/DL TRIGLYCERIDES (test code = 2232) 196 MG/DL HDL CHOLESTEROL (test code = 2220) 50 MG/DL CALC LDL CHOL (test code = 2237) 141 MG/DL RISK RATIO LDL/HDL (test code = 2.82 RATIO 2238) RHEUMATOID FACTOR, [id number] 00:00:00 Test Item Value Reference Range Interpretation Comments RHEUMATOID FACTOR, QUANT (test code <10 IU/ML = 3502) RHEUMATOID FACTOR, [id number] 00:00:00 Test Item Value Reference Range Interpretation Comments RHEUMATOID FACTOR, QUANT (test code <10 IU/ML = 3502) RHEUMATOID FACTOR, [id number] 00:00:00 Test Item Value Reference Range Interpretation Comments RHEUMATOID FACTOR, QUANT (test code <10 IU/ML = 3502) MANSOOR (ANTI-NUCLEAR AB) WITH REFLEX [id number] 00:00:00 Test Item Value Reference Range Interpretation Comments ANTI-NUCLEAR ANTIBODIES (test code = NEGATIVE 3506) MANSOOR (ANTI-NUCLEAR AB) WITH REFLEX [id number] 00:00:00 Test Item Value Reference Range Interpretation Comments ANTI-NUCLEAR ANTIBODIES (test code = NEGATIVE 3506) CCP [id number] 00:00:00 Test Item Value Reference Range Interpretation Comments CCP IgG (test code = 81887) <0.5 U/ML CCP [id number] 00:00:00 Test Item Value Reference Range Interpretation Comments CCP IgG (test code = 54708) <0.5 U/ML CCP [id number] 00:00:00 Test Item Value Reference Range Interpretation Comments CCP IgG (test code = 21995) <0.5 U/ML CBC W/AUTO [id number] 00:00:00 Test Item Value Reference Range Interpretation Comments WBC (test code = 1001) 5.1 K/UL RBC (test code = 1002) 5.10 M/UL HEMOGLOBIN (test code = 1003) 15.8 G/DL HEMATOCRIT (test code = 1004) 45.7 % MCV (test code = 1005) 89.6 fL MCH (test code = 1006) 31.0 PG MCHC (test code = 1007) 34.6 G/DL RDW (test code = 1038) 12.7 % NEUTROPHILS (test code = 1008) 45.3 % LYMPHOCYTES (test code = 1010) 40.7 % MONOCYTES (test code = 1011) 9.5 % EOSINOPHILS (test code = 1012) 3.3 % BASOPHILS (test code = 1013) 1.2 % PLATELET COUNT (test code = 1015) 192 K/UL CBC W/AUTO [id number] 00:00:00 Test Item Value Reference Range Interpretation Comments WBC (test code = 1001) 5.1 K/UL RBC (test code = 1002) 5.10 M/UL HEMOGLOBIN (test code = 1003) 15.8 G/DL HEMATOCRIT (test code = 1004) 45.7 % MCV (test code = 1005) 89.6 fL MCH (test code = 1006) 31.0 PG MCHC (test code = 1007) 34.6 G/DL RDW (test code = 1038) 12.7 % NEUTROPHILS (test code = 1008) 45.3 % LYMPHOCYTES (test code = 1010) 40.7 % MONOCYTES (test code = 1011) 9.5 % EOSINOPHILS (test code = 1012) 3.3 % BASOPHILS (test code = 1013) 1.2 % PLATELET COUNT (test code = 1015) 192 K/UL CBC W/AUTO [id number] 00:00:00 Test Item Value Reference Range Interpretation Comments WBC (test code = 1001) 5.1 K/UL RBC (test code = 1002) 5.10 M/UL HEMOGLOBIN (test code = 1003) 15.8 G/DL HEMATOCRIT (test code = 1004) 45.7 % MCV (test code = 1005) 89.6 fL MCH (test code = 1006) 31.0 PG MCHC (test code = 1007) 34.6 G/DL RDW (test code = 1038) 12.7 % NEUTROPHILS (test code = 1008) 45.3 % LYMPHOCYTES (test code = 1010) 40.7 % MONOCYTES (test code = 1011) 9.5 % EOSINOPHILS (test code = 1012) 3.3 % BASOPHILS (test code = 1013) 1.2 % PLATELET COUNT (test code = 1015) 192 K/UL [id number] 00:00:00 Test Item Value Reference Range Interpretation Comments TSH, THIRD GENERATION (test code 2.790 UIU/ML = 2821) [id number] 00:00:00 Test Item Value Reference Range Interpretation Comments TSH, THIRD GENERATION (test code 2.790 UIU/ML = 2821) [id number] 00:00:00 Test Item Value Reference Range Interpretation Comments TSH, THIRD GENERATION (test code 2.790 UIU/ML = 2821) LIPID [id number] 00:00:00 Test Item Value Reference Range Interpretation Comments CHOLESTEROL (test code = 2210) 225 MG/DL TRIGLYCERIDES (test code = 2232) 196 MG/DL HDL CHOLESTEROL (test code = 2220) 50 MG/DL CALC LDL CHOL (test code = 2237) 141 MG/DL RISK RATIO LDL/HDL (test code = 2.82 RATIO 2238) RHEUMATOID FACTOR, [id number] 00:00:00 Test Item Value Reference Range Interpretation Comments RHEUMATOID FACTOR, QUANT (test code <10 IU/ML = 3502) RHEUMATOID FACTOR, [id number] 00:00:00 Test Item Value Reference Range Interpretation Comments RHEUMATOID FACTOR, QUANT (test code <10 IU/ML = 3502) MANSOOR (ANTI-NUCLEAR AB) WITH REFLEX [id number] 00:00:00 Test Item Value Reference Range Interpretation Comments ANTI-NUCLEAR ANTIBODIES (test code = NEGATIVE 3506) CCP [id number] 00:00:00 Test Item Value Reference Range Interpretation Comments CCP IgG (test code = 06872) <0.5 U/ML CCP [id number] 00:00:00 Test Item Value Reference Range Interpretation Comments CCP IgG (test code = 52367) <0.5 U/ML CBC W/AUTO [id number] 00:00:00 Test Item Value Reference Range Interpretation Comments WBC (test code = 1001) 5.1 K/UL RBC (test code = 1002) 5.10 M/UL HEMOGLOBIN (test code = 1003) 15.8 G/DL HEMATOCRIT (test code = 1004) 45.7 % MCV (test code = 1005) 89.6 fL MCH (test code = 1006) 31.0 PG MCHC (test code = 1007) 34.6 G/DL RDW (test code = 1038) 12.7 % NEUTROPHILS (test code = 1008) 45.3 % LYMPHOCYTES (test code = 1010) 40.7 % MONOCYTES (test code = 1011) 9.5 % EOSINOPHILS (test code = 1012) 3.3 % BASOPHILS (test code = 1013) 1.2 % PLATELET COUNT (test code = 1015) 192 K/UL CBC W/AUTO [id number] 00:00:00 Test Item Value Reference Range Interpretation Comments WBC (test code = 1001) 5.1 K/UL RBC (test code = 1002) 5.10 M/UL HEMOGLOBIN (test code = 1003) 15.8 G/DL HEMATOCRIT (test code = 1004) 45.7 % MCV (test code = 1005) 89.6 fL MCH (test code = 1006) 31.0 PG MCHC (test code = 1007) 34.6 G/DL RDW (test code = 1038) 12.7 % NEUTROPHILS (test code = 1008) 45.3 % LYMPHOCYTES (test code = 1010) 40.7 % MONOCYTES (test code = 1011) 9.5 % EOSINOPHILS (test code = 1012) 3.3 % BASOPHILS (test code = 1013) 1.2 % PLATELET COUNT (test code = 1015) 192 K/UL [id number] 00:00:00 Test Item Value Reference Range Interpretation Comments TSH, THIRD GENERATION (test code 2.790 UIU/ML = 2821) [id number] 00:00:00 Test Item Value Reference Range Interpretation Comments TSH, THIRD GENERATION (test code 2.790 UIU/ML = 2821) COMPREHENSIVE METABOLIC [id number] 00:00:00 Test Item Value Reference Range Interpretation Comments GLUCOSE (test code = 2217) 113 MG/DL BUN (test code = 2208) 12 MG/DL CREATININE (test code = 2214) 0.64 MG/DL eGFR AMER. (test code 117 ML/MIN/1.73 = 41244) eGFR NON- AMER. (test 101 ML/MIN/1.73 code = 78157) CALC BUN/CREAT (test code = 19 RATIO 2235) SODIUM (test code = 2231) 141 MEQ/L POTASSIUM (test code = 2228) 4.3 MEQ/L CHLORIDE (test code = 2215) 104 MEQ/L CARBON DIOXIDE (test code = 25 MEQ/L 2205) CALCIUM (test code = 2209) 9.5 MG/DL PROTEIN, TOTAL (test code = 7.4 G/DL 2228) ALBUMIN (test code = 2201) 4.6 G/DL CALC GLOBULIN (test code = 2.8 G/DL 0) CALC A/G RATIO (test code = 1.6 RATIO 4) BILIRUBIN, TOTAL (test code = 0.4 MG/DL 2206) ALKALINE PHOSPHATASE (test 90 U/L code = 2204) AST (test code = 2218) 19 U/L ALT (test code = 2219) 29 U/L LIPID [id number] 00:00:00 Test Item Value Reference Range Interpretation Comments CHOLESTEROL (test code = 2210) 225 MG/DL TRIGLYCERIDES (test code = 2232) 196 MG/DL HDL CHOLESTEROL (test code = 2220) 50 MG/DL CALC LDL CHOL (test code = 2237) 141 MG/DL RISK RATIO LDL/HDL (test code = 2.82 RATIO 2238) RHEUMATOID FACTOR, [id number] 00:00:00 Test Item Value Reference Range Interpretation Comments RHEUMATOID FACTOR, QUANT (test code <10 IU/ML = 3502) RHEUMATOID FACTOR, [id number] 00:00:00 Test Item Value Reference Range Interpretation Comments RHEUMATOID FACTOR, QUANT (test code <10 IU/ML = 3502) MANSOOR (ANTI-NUCLEAR AB) WITH REFLEX [id number] 00:00:00 Test Item Value Reference Range Interpretation Comments ANTI-NUCLEAR ANTIBODIES (test code = NEGATIVE 3506) CCP [id number] 00:00:00 Test Item Value Reference Range Interpretation Comments CCP IgG (test code = 67407) <0.5 U/ML CCP [id number] 00:00:00 Test Item Value Reference Range Interpretation Comments CCP IgG (test code = 95085) <0.5 U/ML CBC W/AUTO [id number] 00:00:00 Test Item Value Reference Range Interpretation Comments WBC (test code = 1001) 5.1 K/UL RBC (test code = 1002) 5.10 M/UL HEMOGLOBIN (test code = 1003) 15.8 G/DL HEMATOCRIT (test code = 1004) 45.7 % MCV (test code = 1005) 89.6 fL MCH (test code = 1006) 31.0 PG MCHC (test code = 1007) 34.6 G/DL RDW (test code = 1038) 12.7 % NEUTROPHILS (test code = 1008) 45.3 % LYMPHOCYTES (test code = 1010) 40.7 % MONOCYTES (test code = 1011) 9.5 % EOSINOPHILS (test code = 1012) 3.3 % BASOPHILS (test code = 1013) 1.2 % PLATELET COUNT (test code = 1015) 192 K/UL CBC W/AUTO [id number] 00:00:00 Test Item Value Reference Range Interpretation Comments WBC (test code = 1001) 5.1 K/UL RBC (test code = 1002) 5.10 M/UL HEMOGLOBIN (test code = 1003) 15.8 G/DL HEMATOCRIT (test code = 1004) 45.7 % MCV (test code = 1005) 89.6 fL MCH (test code = 1006) 31.0 PG MCHC (test code = 1007) 34.6 G/DL RDW (test code = 1038) 12.7 % NEUTROPHILS (test code = 1008) 45.3 % LYMPHOCYTES (test code = 1010) 40.7 % MONOCYTES (test code = 1011) 9.5 % EOSINOPHILS (test code = 1012) 3.3 % BASOPHILS (test code = 1013) 1.2 % PLATELET COUNT (test code = 1015) 192 K/UL [id number] 00:00:00 Test Item Value Reference Range Interpretation Comments TSH, THIRD GENERATION (test code 2.790 UIU/ML = 2821) [id number] 00:00:00 Test Item Value Reference Range Interpretation Comments TSH, THIRD GENERATION (test code 2.790 UIU/ML = 2821) COMPREHENSIVE METABOLIC [id number] 00:00:00 Test Item Value Reference Range Interpretation Comments GLUCOSE (test code = 2217) 113 MG/DL BUN (test code = 2208) 12 MG/DL CREATININE (test code = 2214) 0.64 MG/DL eGFR AMER. (test code 117 ML/MIN/1.73 = 93857) eGFR NON- AMER. (test 101 ML/MIN/1.73 code = 43423) CALC BUN/CREAT (test code = 19 RATIO 2235) SODIUM (test code = 2231) 141 MEQ/L POTASSIUM (test code = 2228) 4.3 MEQ/L CHLORIDE (test code = 2215) 104 MEQ/L CARBON DIOXIDE (test code = 25 MEQ/L 2205) CALCIUM (test code = 2209) 9.5 MG/DL PROTEIN, TOTAL (test code = 7.4 G/DL 2228) ALBUMIN (test code = 2201) 4.6 G/DL CALC GLOBULIN (test code = 2.8 G/DL 2240) CALC A/G RATIO (test code = 1.6 RATIO 2234) BILIRUBIN, TOTAL (test code = 0.4 MG/DL 2206) ALKALINE PHOSPHATASE (test 90 U/L code = 2204) AST (test code = 2218) 19 U/L ALT (test code = 2219) 29 U/L LIPID [id number] 00:00:00 Test Item Value Reference Range Interpretation Comments CHOLESTEROL (test code = 2210) 225 MG/DL TRIGLYCERIDES (test code = 2232) 196 MG/DL HDL CHOLESTEROL (test code = 2220) 50 MG/DL CALC LDL CHOL (test code = 2237) 141 MG/DL RISK RATIO LDL/HDL (test code = 2.82 RATIO 2238) RHEUMATOID FACTOR, [id number] 00:00:00 Test Item Value Reference Range Interpretation Comments RHEUMATOID FACTOR, QUANT (test code <10 IU/ML = 3502) RHEUMATOID FACTOR, [id number] 00:00:00 Test Item Value Reference Range Interpretation Comments RHEUMATOID FACTOR, QUANT (test code <10 IU/ML = 3502) MANSOOR (ANTI-NUCLEAR AB) WITH REFLEX [id number] 00:00:00 Test Item Value Reference Range Interpretation Comments ANTI-NUCLEAR ANTIBODIES (test code = NEGATIVE 3506) CCP [id number] 00:00:00 Test Item Value Reference Range Interpretation Comments CCP IgG (test code = 02410) <0.5 U/ML CCP [id number] 00:00:00 Test Item Value Reference Range Interpretation Comments CCP IgG (test code = 89571) <0.5 U/ML CBC W/AUTO [id number] 00:00:00 Test Item Value Reference Range Interpretation Comments WBC (test code = 1001) 5.1 K/UL RBC (test code = 1002) 5.10 M/UL HEMOGLOBIN (test code = 1003) 15.8 G/DL HEMATOCRIT (test code = 1004) 45.7 % MCV (test code = 1005) 89.6 fL MCH (test code = 1006) 31.0 PG MCHC (test code = 1007) 34.6 G/DL RDW (test code = 1038) 12.7 % NEUTROPHILS (test code = 1008) 45.3 % LYMPHOCYTES (test code = 1010) 40.7 % MONOCYTES (test code = 1011) 9.5 % EOSINOPHILS (test code = 1012) 3.3 % BASOPHILS (test code = 1013) 1.2 % PLATELET COUNT (test code = 1015) 192 K/UL CBC W/AUTO [id number] 00:00:00 Test Item Value Reference Range Interpretation Comments WBC (test code = 1001) 5.1 K/UL RBC (test code = 1002) 5.10 M/UL HEMOGLOBIN (test code = 1003) 15.8 G/DL HEMATOCRIT (test code = 1004) 45.7 % MCV (test code = 1005) 89.6 fL MCH (test code = 1006) 31.0 PG MCHC (test code = 1007) 34.6 G/DL RDW (test code = 1038) 12.7 % NEUTROPHILS (test code = 1008) 45.3 % LYMPHOCYTES (test code = 1010) 40.7 % MONOCYTES (test code = 1011) 9.5 % EOSINOPHILS (test code = 1012) 3.3 % BASOPHILS (test code = 1013) 1.2 % PLATELET COUNT (test code = 1015) 192 K/UL [id number] 00:00:00 Test Item Value Reference Range Interpretation Comments TSH, THIRD GENERATION (test code 2.790 UIU/ML = 2821) [id number] 00:00:00 Test Item Value Reference Range Interpretation Comments TSH, THIRD GENERATION (test code 2.790 UIU/ML = 2821) COMPREHENSIVE METABOLIC [id number] 00:00:00 Test Item Value Reference Range Interpretation Comments GLUCOSE (test code = 2217) 113 MG/DL BUN (test code = 2208) 12 MG/DL CREATININE (test code = 2214) 0.64 MG/DL eGFR AMER. (test code 117 ML/MIN/1.73 = 41607) eGFR NON- AMER. (test 101 ML/MIN/1.73 code = 04015) CALC BUN/CREAT (test code = 19 RATIO 2235) SODIUM (test code = 2231) 141 MEQ/L POTASSIUM (test code = 2228) 4.3 MEQ/L CHLORIDE (test code = 2215) 104 MEQ/L CARBON DIOXIDE (test code = 25 MEQ/L 220) CALCIUM (test code = 2209) 9.5 MG/DL PROTEIN, TOTAL (test code = 7.4 G/DL 2228) ALBUMIN (test code = 2201) 4.6 G/DL CALC GLOBULIN (test code = 2.8 G/DL 2240) CALC A/G RATIO (test code = 1.6 RATIO 223) BILIRUBIN, TOTAL (test code = 0.4 MG/DL 2206) ALKALINE PHOSPHATASE (test 90 U/L code = 2204) AST (test code = 2218) 19 U/L ALT (test code = 2219) 29 U/L COMPREHENSIVE METABOLIC [id number] 00:00:00 Test Item Value Reference Range Interpretation Comments GLUCOSE (test code = 2217) 113 MG/DL BUN (test code = 2208) 12 MG/DL CREATININE (test code = 2214) 0.64 MG/DL eGFR AMER. (test code 117 ML/MIN/1.73 = 30165) eGFR NON- AMER. (test 101 ML/MIN/1.73 code = 61347) CALC BUN/CREAT (test code = 19 RATIO 2235) SODIUM (test code = 2231) 141 MEQ/L POTASSIUM (test code = 2228) 4.3 MEQ/L CHLORIDE (test code = 2215) 104 MEQ/L CARBON DIOXIDE (test code = 25 MEQ/L 2205) CALCIUM (test code = 2209) 9.5 MG/DL PROTEIN, TOTAL (test code = 7.4 G/DL 2228) ALBUMIN (test code = 2201) 4.6 G/DL CALC GLOBULIN (test code = 2.8 G/DL 2240) CALC A/G RATIO (test code = 1.6 RATIO 4) BILIRUBIN, TOTAL (test code = 0.4 MG/DL 2206) ALKALINE PHOSPHATASE (test 90 U/L code = 2204) AST (test code = 2218) 19 U/L ALT (test code = 2219) 29 U/L LIPID [id number] 00:00:00 Test Item Value Reference Range Interpretation Comments CHOLESTEROL (test code = 2210) 225 MG/DL TRIGLYCERIDES (test code = 2232) 196 MG/DL HDL CHOLESTEROL (test code = 2220) 50 MG/DL CALC LDL CHOL (test code = 2237) 141 MG/DL RISK RATIO LDL/HDL (test code = 2.82 RATIO 2238) LIPID [id number] 00:00:00 Test Item Value Reference Range Interpretation Comments CHOLESTEROL (test code = 2210) 225 MG/DL TRIGLYCERIDES (test code = 2232) 196 MG/DL HDL CHOLESTEROL (test code = 2220) 50 MG/DL CALC LDL CHOL (test code = 2237) 141 MG/DL RISK RATIO LDL/HDL (test code = 2.82 RATIO 2238) CULTURE, [id number] 00:00:00 Test Item Value Reference Range Interpretation Comments CULTURE, THROAT (test SPECIMEN NUMBER: code = 82810) [id number] CULTURE, [id number] 00:00:00 Test Item Value Reference Range Interpretation Comments CULTURE, THROAT (test SPECIMEN NUMBER: code = 50140) [id number] CULTURE, [id number] 00:00:00 Test Item Value Reference Range Interpretation Comments CULTURE, THROAT (test SPECIMEN NUMBER: code = 68039) [id number] CULTURE, [id number] 00:00:00 Test Item Value Reference Range Interpretation Comments CULTURE, THROAT (test SPECIMEN NUMBER: code = 20759) [id number] CULTURE, [id number] 00:00:00 Test Item Value Reference Range Interpretation Comments CULTURE, THROAT (test SPECIMEN NUMBER: code = 14010) [id number] CULTURE, [id number] 00:00:00 Test Item Value Reference Range Interpretation Comments CULTURE, THROAT (test SPECIMEN NUMBER: code = 97808) [id number] CULTURE, [id number] 00:00:00 Test Item Value Reference Range Interpretation Comments CULTURE, THROAT (test SPECIMEN NUMBER: code = 58705) [id number] CULTURE, [id number] 00:00:00 Test Item Value Reference Range Interpretation Comments CULTURE, THROAT (test SPECIMEN NUMBER: code = 09779) [id number] CULTURE, [id number] 00:00:00 Test Item Value Reference Range Interpretation Comments CULTURE, THROAT (test SPECIMEN NUMBER: code = 56466) [id number] SARS-CoV-2 (COVID-19) by RT-PCR (HIGH RISK)2019-12-29 00:00:00 Test Item Value Reference Range Interpretation Comments SARS-CoV-2 INTERPRETATION (test NEGATIVE code = 47997) SOURCE (test code = 57596) NOT SPECIFIED SARS-CoV-2 (COVID-19) by RT-PCR (HIGH RISK)2019-12-29 00:00:00 Test Item Value Reference Range Interpretation Comments SARS-CoV-2 INTERPRETATION (test NEGATIVE code = 16319) SOURCE (test code = 88187) NOT SPECIFIED SARS-CoV-2 (COVID-19) by RT-PCR (HIGH RISK)2019-12-29 00:00:00 Test Item Value Reference Range Interpretation Comments SARS-CoV-2 INTERPRETATION (test NEGATIVE code = 44975) SOURCE (test code = 11384) NOT SPECIFIED SARS-CoV-2 (COVID-19) by RT-PCR (HIGH RISK)2019-12-29 00:00:00 Test Item Value Reference Range Interpretation Comments SARS-CoV-2 INTERPRETATION (test NEGATIVE code = 88324) SOURCE (test code = 56675) NOT SPECIFIED SARS-CoV-2 (COVID-19) by RT-PCR (HIGH RISK)2019-12-29 00:00:00 Test Item Value Reference Range Interpretation Comments SARS-CoV-2 INTERPRETATION (test NEGATIVE code = 28453) SOURCE (test code = 74385) NOT SPECIFIED SARS-CoV-2 (COVID-19) by RT-PCR (HIGH RISK)2019-12-29 00:00:00 Test Item Value Reference Range Interpretation Comments SARS-CoV-2 INTERPRETATION (test NEGATIVE code = 09827) SOURCE (test code = 61486) NOT SPECIFIED SARS-CoV-2 (COVID-19) by RT-PCR (HIGH RISK)2019-12-29 00:00:00 Test Item Value Reference Range Interpretation Comments SARS-CoV-2 INTERPRETATION (test NEGATIVE code = 16556) SOURCE (test code = 80252) NOT SPECIFIED SARS-CoV-2 (COVID-19) by RT-PCR (HIGH RISK)2019-12-29 00:00:00 Test Item Value Reference Range Interpretation Comments SARS-CoV-2 INTERPRETATION (test NEGATIVE code = 51582) SOURCE (test code = 07351) NOT SPECIFIED SARS-CoV-2 (COVID-19) by RT-PCR (HIGH RISK)2019-12-29 00:00:00 Test Item Value Reference Range Interpretation Comments SARS-CoV-2 INTERPRETATION (test NEGATIVE code = 96699) SOURCE (test code = 73327) NOT SPECIFIED SARS-CoV-2 (COVID-19) by RT-PCR (HIGH RISK)2019-12-07 00:00:00 Test Item Value Reference Range Interpretation Comments SARS-CoV-2 INTERPRETATION (test NEGATIVE code = 94805) SOURCE (test code = 51259) NOT SPECIFIED SARS-CoV-2 (COVID-19) by RT-PCR (HIGH RISK)2019-12-07 00:00:00 Test Item Value Reference Range Interpretation Comments SARS-CoV-2 INTERPRETATION (test NEGATIVE code = 48749) SOURCE (test code = 07045) NOT SPECIFIED SARS-CoV-2 (COVID-19) by RT-PCR (HIGH RISK)2019-12-07 00:00:00 Test Item Value Reference Range Interpretation Comments SARS-CoV-2 INTERPRETATION (test NEGATIVE code = 31204) SOURCE (test code = 31021) NOT SPECIFIED SARS-CoV-2 (COVID-19) by RT-PCR (HIGH RISK)2019-12-07 00:00:00 Test Item Value Reference Range Interpretation Comments SARS-CoV-2 INTERPRETATION (test NEGATIVE code = 84060) SOURCE (test code = 67782) NOT SPECIFIED SARS-CoV-2 (COVID-19) by RT-PCR (HIGH RISK)2019-12-07 00:00:00 Test Item Value Reference Range Interpretation Comments SARS-CoV-2 INTERPRETATION (test NEGATIVE code = 68104) SOURCE (test code = 80994) NOT SPECIFIED SARS-CoV-2 (COVID-19) by RT-PCR (HIGH RISK)2019-12-07 00:00:00 Test Item Value Reference Range Interpretation Comments SARS-CoV-2 INTERPRETATION (test NEGATIVE code = 81353) SOURCE (test code = 79817) NOT SPECIFIED SARS-CoV-2 (COVID-19) by RT-PCR (HIGH RISK)2019-12-07 00:00:00 Test Item Value Reference Range Interpretation Comments SARS-CoV-2 INTERPRETATION (test NEGATIVE code = 98558) SOURCE (test code = 72857) NOT SPECIFIED SARS-CoV-2 (COVID-19) by RT-PCR (HIGH RISK)2019-12-07 00:00:00 Test Item Value Reference Range Interpretation Comments SARS-CoV-2 INTERPRETATION (test NEGATIVE code = 62884) SOURCE (test code = 90506) NOT SPECIFIED SARS-CoV-2 (COVID-19) by RT-PCR (HIGH RISK)2019-12-07 00:00:00 Test Item Value Reference Range Interpretation Comments SARS-CoV-2 INTERPRETATION (test NEGATIVE code = 98476) SOURCE (test code = 76760) NOT SPECIFIED SARS-COV-2(COVID19),HIGHRISK,RT-PCR [ADDED]2019-09-12 00:00:00 Test Item Value Reference Range Interpretation Comments SARS-CoV-2 INTERPRETATION NEGATIVE (test code = 11676) SOURCE (test code = 21051) NASOPHARYNGEAL SARS-COV-2(COVID19),HIGHRISK,RT-PCR [ADDED]2019-09-12 00:00:00 Test Item Value Reference Range Interpretation Comments SARS-CoV-2 INTERPRETATION NEGATIVE (test code = 66852) SOURCE (test code = 32623) NASOPHARYNGEAL SARS-COV-2(COVID19),HIGHRISK,RT-PCR [ADDED]2019-09-12 00:00:00 Test Item Value Reference Range Interpretation Comments SARS-CoV-2 INTERPRETATION NEGATIVE (test code = 89793) SOURCE (test code = 32279) NASOPHARYNGEAL SARS-COV-2(COVID19),HIGHRISK,RT-PCR [ADDED]2019-09-12 00:00:00 Test Item Value Reference Range Interpretation Comments SARS-CoV-2 INTERPRETATION NEGATIVE (test code = 85102) SOURCE (test code = 49173) NASOPHARYNGEAL SARS-COV-2(COVID19),HIGHRISK,RT-PCR [ADDED]2019-09-12 00:00:00 Test Item Value Reference Range Interpretation Comments SARS-CoV-2 INTERPRETATION NEGATIVE (test code = 50252) SOURCE (test code = 49365) NASOPHARYNGEAL SARS-COV-2(COVID19),HIGHRISK,RT-PCR [ADDED]2019-09-12 00:00:00 Test Item Value Reference Range Interpretation Comments SARS-CoV-2 INTERPRETATION NEGATIVE (test code = 15918) SOURCE (test code = 99800) NASOPHARYNGEAL SARS-COV-2(COVID19),HIGHRISK,RT-PCR [ADDED]2019-09-12 00:00:00 Test Item Value Reference Range Interpretation Comments SARS-CoV-2 INTERPRETATION NEGATIVE (test code = 86067) SOURCE (test code = 52497) NASOPHARYNGEAL SARS-COV-2(COVID19),HIGHRISK,RT-PCR [ADDED]2019-09-12 00:00:00 Test Item Value Reference Range Interpretation Comments SARS-CoV-2 INTERPRETATION NEGATIVE (test code = 40298) SOURCE (test code = 57462) NASOPHARYNGEAL SARS-COV-2(COVID19),HIGHRISK,RT-PCR [ADDED]2019-09-12 00:00:00 Test Item Value Reference Range Interpretation Comments SARS-CoV-2 INTERPRETATION NEGATIVE (test code = 97710) SOURCE (test code = 41198) NASOPHARYNGEAL CBC W/AUTO [id number] 00:00:00 Test Item Value Reference Range Interpretation Comments WBC (test code = 1001) 5.0 K/UL RBC (test code = 1002) 5.30 M/UL HEMOGLOBIN (test code = 1003) 16.1 G/DL HEMATOCRIT (test code = 1004) 45.6 % MCV (test code = 1005) 86.0 fL MCH (test code = 1006) 30.4 PG MCHC (test code = 1007) 35.3 G/DL RDW (test code = 1038) 12.9 % NEUTROPHILS (test code = 1008) 39.3 % LYMPHOCYTES (test code = 1010) 45.8 % MONOCYTES (test code = 1011) 10.9 % EOSINOPHILS (test code = 1012) 2.6 % BASOPHILS (test code = 1013) 1.4 % PLATELET COUNT (test code = 1015) 225 K/UL CBC W/AUTO [id number] 00:00:00 Test Item Value Reference Range Interpretation Comments WBC (test code = 1001) 5.0 K/UL RBC (test code = 1002) 5.30 M/UL HEMOGLOBIN (test code = 1003) 16.1 G/DL HEMATOCRIT (test code = 1004) 45.6 % MCV (test code = 1005) 86.0 fL MCH (test code = 1006) 30.4 PG MCHC (test code = 1007) 35.3 G/DL RDW (test code = 1038) 12.9 % NEUTROPHILS (test code = 1008) 39.3 % LYMPHOCYTES (test code = 1010) 45.8 % MONOCYTES (test code = 1011) 10.9 % EOSINOPHILS (test code = 1012) 2.6 % BASOPHILS (test code = 1013) 1.4 % PLATELET COUNT (test code = 1015) 225 K/UL CBC W/AUTO [id number] 00:00:00 Test Item Value Reference Range Interpretation Comments WBC (test code = 1001) 5.0 K/UL RBC (test code = 1002) 5.30 M/UL HEMOGLOBIN (test code = 1003) 16.1 G/DL HEMATOCRIT (test code = 1004) 45.6 % MCV (test code = 1005) 86.0 fL MCH (test code = 1006) 30.4 PG MCHC (test code = 1007) 35.3 G/DL RDW (test code = 1038) 12.9 % NEUTROPHILS (test code = 1008) 39.3 % LYMPHOCYTES (test code = 1010) 45.8 % MONOCYTES (test code = 1011) 10.9 % EOSINOPHILS (test code = 1012) 2.6 % BASOPHILS (test code = 1013) 1.4 % PLATELET COUNT (test code = 1015) 225 K/UL CBC W/AUTO [id number] 00:00:00 Test Item Value Reference Range Interpretation Comments WBC (test code = 1001) 5.0 K/UL RBC (test code = 1002) 5.30 M/UL HEMOGLOBIN (test code = 1003) 16.1 G/DL HEMATOCRIT (test code = 1004) 45.6 % MCV (test code = 1005) 86.0 fL MCH (test code = 1006) 30.4 PG MCHC (test code = 1007) 35.3 G/DL RDW (test code = 1038) 12.9 % NEUTROPHILS (test code = 1008) 39.3 % LYMPHOCYTES (test code = 1010) 45.8 % MONOCYTES (test code = 1011) 10.9 % EOSINOPHILS (test code = 1012) 2.6 % BASOPHILS (test code = 1013) 1.4 % PLATELET COUNT (test code = 1015) 225 K/UL CBC W/AUTO [id number] 00:00:00 Test Item Value Reference Range Interpretation Comments WBC (test code = 1001) 5.0 K/UL RBC (test code = 1002) 5.30 M/UL HEMOGLOBIN (test code = 1003) 16.1 G/DL HEMATOCRIT (test code = 1004) 45.6 % MCV (test code = 1005) 86.0 fL MCH (test code = 1006) 30.4 PG MCHC (test code = 1007) 35.3 G/DL RDW (test code = 1038) 12.9 % NEUTROPHILS (test code = 1008) 39.3 % LYMPHOCYTES (test code = 1010) 45.8 % MONOCYTES (test code = 1011) 10.9 % EOSINOPHILS (test code = 1012) 2.6 % BASOPHILS (test code = 1013) 1.4 % PLATELET COUNT (test code = 1015) 225 K/UL CBC W/AUTO [id number] 00:00:00 Test Item Value Reference Range Interpretation Comments WBC (test code = 1001) 5.0 K/UL RBC (test code = 1002) 5.30 M/UL HEMOGLOBIN (test code = 1003) 16.1 G/DL HEMATOCRIT (test code = 1004) 45.6 % MCV (test code = 1005) 86.0 fL MCH (test code = 1006) 30.4 PG MCHC (test code = 1007) 35.3 G/DL RDW (test code = 1038) 12.9 % NEUTROPHILS (test code = 1008) 39.3 % LYMPHOCYTES (test code = 1010) 45.8 % MONOCYTES (test code = 1011) 10.9 % EOSINOPHILS (test code = 1012) 2.6 % BASOPHILS (test code = 1013) 1.4 % PLATELET COUNT (test code = 1015) 225 K/UL CBC W/AUTO [id number] 00:00:00 Test Item Value Reference Range Interpretation Comments WBC (test code = 1001) 5.0 K/UL RBC (test code = 1002) 5.30 M/UL HEMOGLOBIN (test code = 1003) 16.1 G/DL HEMATOCRIT (test code = 1004) 45.6 % MCV (test code = 1005) 86.0 fL MCH (test code = 1006) 30.4 PG MCHC (test code = 1007) 35.3 G/DL RDW (test code = 1038) 12.9 % NEUTROPHILS (test code = 1008) 39.3 % LYMPHOCYTES (test code = 1010) 45.8 % MONOCYTES (test code = 1011) 10.9 % EOSINOPHILS (test code = 1012) 2.6 % BASOPHILS (test code = 1013) 1.4 % PLATELET COUNT (test code = 1015) 225 K/UL CBC W/AUTO [id number] 00:00:00 Test Item Value Reference Range Interpretation Comments WBC (test code = 1001) 5.0 K/UL RBC (test code = 1002) 5.30 M/UL HEMOGLOBIN (test code = 1003) 16.1 G/DL HEMATOCRIT (test code = 1004) 45.6 % MCV (test code = 1005) 86.0 fL MCH (test code = 1006) 30.4 PG MCHC (test code = 1007) 35.3 G/DL RDW (test code = 1038) 12.9 % NEUTROPHILS (test code = 1008) 39.3 % LYMPHOCYTES (test code = 1010) 45.8 % MONOCYTES (test code = 1011) 10.9 % EOSINOPHILS (test code = 1012) 2.6 % BASOPHILS (test code = 1013) 1.4 % PLATELET COUNT (test code = 1015) 225 K/UL CBC W/AUTO [id number] 00:00:00 Test Item Value Reference Range Interpretation Comments WBC (test code = 1001) 5.0 K/UL RBC (test code = 1002) 5.30 M/UL HEMOGLOBIN (test code = 1003) 16.1 G/DL HEMATOCRIT (test code = 1004) 45.6 % MCV (test code = 1005) 86.0 fL MCH (test code = 1006) 30.4 PG MCHC (test code = 1007) 35.3 G/DL RDW (test code = 1038) 12.9 % NEUTROPHILS (test code = 1008) 39.3 % LYMPHOCYTES (test code = 1010) 45.8 % MONOCYTES (test code = 1011) 10.9 % EOSINOPHILS (test code = 1012) 2.6 % BASOPHILS (test code = 1013) 1.4 % PLATELET COUNT (test code = 1015) 225 K/UL CBC W/AUTO [id number] 00:00:00 Test Item Value Reference Range Interpretation Comments WBC (test code = 1001) 5.0 K/UL RBC (test code = 1002) 5.30 M/UL HEMOGLOBIN (test code = 1003) 16.1 G/DL HEMATOCRIT (test code = 1004) 45.6 % MCV (test code = 1005) 86.0 fL MCH (test code = 1006) 30.4 PG MCHC (test code = 1007) 35.3 G/DL RDW (test code = 1038) 12.9 % NEUTROPHILS (test code = 1008) 39.3 % LYMPHOCYTES (test code = 1010) 45.8 % MONOCYTES (test code = 1011) 10.9 % EOSINOPHILS (test code = 1012) 2.6 % BASOPHILS (test code = 1013) 1.4 % PLATELET COUNT (test code = 1015) 225 K/UL CBC W/AUTO [id number] 00:00:00 Test Item Value Reference Range Interpretation Comments WBC (test code = 1001) 5.0 K/UL RBC (test code = 1002) 5.30 M/UL HEMOGLOBIN (test code = 1003) 16.1 G/DL HEMATOCRIT (test code = 1004) 45.6 % MCV (test code = 1005) 86.0 fL MCH (test code = 1006) 30.4 PG MCHC (test code = 1007) 35.3 G/DL RDW (test code = 1038) 12.9 % NEUTROPHILS (test code = 1008) 39.3 % LYMPHOCYTES (test code = 1010) 45.8 % MONOCYTES (test code = 1011) 10.9 % EOSINOPHILS (test code = 1012) 2.6 % BASOPHILS (test code = 1013) 1.4 % PLATELET COUNT (test code = 1015) 225 K/UL CBC W/AUTO [id number] 00:00:00 Test Item Value Reference Range Interpretation Comments WBC (test code = 1001) 5.0 K/UL RBC (test code = 1002) 5.30 M/UL HEMOGLOBIN (test code = 1003) 16.1 G/DL HEMATOCRIT (test code = 1004) 45.6 % MCV (test code = 1005) 86.0 fL MCH (test code = 1006) 30.4 PG MCHC (test code = 1007) 35.3 G/DL RDW (test code = 1038) 12.9 % NEUTROPHILS (test code = 1008) 39.3 % LYMPHOCYTES (test code = 1010) 45.8 % MONOCYTES (test code = 1011) 10.9 % EOSINOPHILS (test code = 1012) 2.6 % BASOPHILS (test code = 1013) 1.4 % PLATELET COUNT (test code = 1015) 225 K/UL CBC W/AUTO [id number] 00:00:00 Test Item Value Reference Range Interpretation Comments WBC (test code = 1001) 5.0 K/UL RBC (test code = 1002) 5.30 M/UL HEMOGLOBIN (test code = 1003) 16.1 G/DL HEMATOCRIT (test code = 1004) 45.6 % MCV (test code = 1005) 86.0 fL MCH (test code = 1006) 30.4 PG MCHC (test code = 1007) 35.3 G/DL RDW (test code = 1038) 12.9 % NEUTROPHILS (test code = 1008) 39.3 % LYMPHOCYTES (test code = 1010) 45.8 % MONOCYTES (test code = 1011) 10.9 % EOSINOPHILS (test code = 1012) 2.6 % BASOPHILS (test code = 1013) 1.4 % PLATELET COUNT (test code = 1015) 225 K/UL CBC W/AUTO [id number] 00:00:00 Test Item Value Reference Range Interpretation Comments WBC (test code = 1001) 5.0 K/UL RBC (test code = 1002) 5.30 M/UL HEMOGLOBIN (test code = 1003) 16.1 G/DL HEMATOCRIT (test code = 1004) 45.6 % MCV (test code = 1005) 86.0 fL MCH (test code = 1006) 30.4 PG MCHC (test code = 1007) 35.3 G/DL RDW (test code = 1038) 12.9 % NEUTROPHILS (test code = 1008) 39.3 % LYMPHOCYTES (test code = 1010) 45.8 % MONOCYTES (test code = 1011) 10.9 % EOSINOPHILS (test code = 1012) 2.6 % BASOPHILS (test code = 1013) 1.4 % PLATELET COUNT (test code = 1015) 225 K/UL CBC W/AUTO [id number] 00:00:00 Test Item Value Reference Range Interpretation Comments WBC (test code = 1001) 5.0 K/UL RBC (test code = 1002) 5.30 M/UL HEMOGLOBIN (test code = 1003) 16.1 G/DL HEMATOCRIT (test code = 1004) 45.6 % MCV (test code = 1005) 86.0 fL MCH (test code = 1006) 30.4 PG MCHC (test code = 1007) 35.3 G/DL RDW (test code = 1038) 12.9 % NEUTROPHILS (test code = 1008) 39.3 % LYMPHOCYTES (test code = 1010) 45.8 % MONOCYTES (test code = 1011) 10.9 % EOSINOPHILS (test code = 1012) 2.6 % BASOPHILS (test code = 1013) 1.4 % PLATELET COUNT (test code = 1015) 225 K/UL [id number] 00:00:00 Test Item Value Reference Range Interpretation Comments AMYLASE (test code = 2205) 78 U/L [id number] 00:00:00 Test Item Value Reference Range Interpretation Comments AMYLASE (test code = 2205) 78 U/L [id number] 00:00:00 Test Item Value Reference Range Interpretation Comments LIPASE (test code = 2057) 39 U/L [id number] 00:00:00 Test Item Value Reference Range Interpretation Comments LIPASE (test code = 2057) 39 U/L [id number] 00:00:00 Test Item Value Reference Range Interpretation Comments LIPASE (test code = 2057) 39 U/L CBC W/AUTO [id number] 00:00:00 Test Item Value Reference Range Interpretation Comments WBC (test code = 1001) 3.6 K/UL RBC (test code = 1002) 5.03 M/UL HEMOGLOBIN (test code = 1003) 15.4 G/DL HEMATOCRIT (test code = 1004) 43.8 % MCV (test code = 1005) 87.1 fL MCH (test code = 1006) 30.6 PG MCHC (test code = 1007) 35.2 G/DL RDW (test code = 1038) 13.0 % NEUTROPHILS (test code = 1008) 35.1 % LYMPHOCYTES (test code = 1010) 50.4 % MONOCYTES (test code = 1011) 10.6 % EOSINOPHILS (test code = 1012) 2.5 % BASOPHILS (test code = 1013) 1.4 % PLATELET COUNT (test code = 1015) 218 K/UL CBC W/AUTO [id number] 00:00:00 Test Item Value Reference Range Interpretation Comments WBC (test code = 1001) 3.6 K/UL RBC (test code = 1002) 5.03 M/UL HEMOGLOBIN (test code = 1003) 15.4 G/DL HEMATOCRIT (test code = 1004) 43.8 % MCV (test code = 1005) 87.1 fL MCH (test code = 1006) 30.6 PG MCHC (test code = 1007) 35.2 G/DL RDW (test code = 1038) 13.0 % NEUTROPHILS (test code = 1008) 35.1 % LYMPHOCYTES (test code = 1010) 50.4 % MONOCYTES (test code = 1011) 10.6 % EOSINOPHILS (test code = 1012) 2.5 % BASOPHILS (test code = 1013) 1.4 % PLATELET COUNT (test code = 1015) 218 K/UL CBC W/AUTO [id number] 00:00:00 Test Item Value Reference Range Interpretation Comments WBC (test code = 1001) 3.6 K/UL RBC (test code = 1002) 5.03 M/UL HEMOGLOBIN (test code = 1003) 15.4 G/DL HEMATOCRIT (test code = 1004) 43.8 % MCV (test code = 1005) 87.1 fL MCH (test code = 1006) 30.6 PG MCHC (test code = 1007) 35.2 G/DL RDW (test code = 1038) 13.0 % NEUTROPHILS (test code = 1008) 35.1 % LYMPHOCYTES (test code = 1010) 50.4 % MONOCYTES (test code = 1011) 10.6 % EOSINOPHILS (test code = 1012) 2.5 % BASOPHILS (test code = 1013) 1.4 % PLATELET COUNT (test code = 1015) 218 K/UL COMPREHENSIVE METABOLIC [id number] 00:00:00 Test Item Value Reference Range Interpretation Comments GLUCOSE (test code = 2217) 81 MG/DL BUN (test code = 2208) 12 MG/DL CREATININE (test code = 2214) 0.49 MG/DL eGFR AMER. (test code 131 ML/MIN/1.73 = 86531) eGFR NON- AMER. (test 113 ML/MIN/1.73 code = 80413) CALC BUN/CREAT (test code = 24 RATIO 2235) SODIUM (test code = 2231) 140 MEQ/L POTASSIUM (test code = 2228) 4.2 MEQ/L CHLORIDE (test code = 2215) 100 MEQ/L CARBON DIOXIDE (test code = 26 MEQ/L 2206) CALCIUM (test code = 2209) 9.5 MG/DL PROTEIN, TOTAL (test code = 7.3 G/DL 2228) ALBUMIN (test code = 2201) 4.3 G/DL CALC GLOBULIN (test code = 3.0 G/DL 2240) CALC A/G RATIO (test code = 1.4 RATIO 2234) BILIRUBIN, TOTAL (test code = 0.4 MG/DL 2206) ALKALINE PHOSPHATASE (test 92 U/L code = 2204) AST (test code = 2218) 20 U/L ALT (test code = 2219) 26 U/L COMPREHENSIVE METABOLIC [id number] 00:00:00 Test Item Value Reference Range Interpretation Comments GLUCOSE (test code = 2217) 81 MG/DL BUN (test code = 2208) 12 MG/DL CREATININE (test code = 2214) 0.49 MG/DL eGFR AMER. (test code 131 ML/MIN/1.73 = 50867) eGFR NON- AMER. (test 113 ML/MIN/1.73 code = 23318) CALC BUN/CREAT (test code = 24 RATIO 2235) SODIUM (test code = 2231) 140 MEQ/L POTASSIUM (test code = 2228) 4.2 MEQ/L CHLORIDE (test code = 2215) 100 MEQ/L CARBON DIOXIDE (test code = 26 MEQ/L 220) CALCIUM (test code = 2209) 9.5 MG/DL PROTEIN, TOTAL (test code = 7.3 G/DL 222) ALBUMIN (test code = 2201) 4.3 G/DL CALC GLOBULIN (test code = 3.0 G/DL 2240) CALC A/G RATIO (test code = 1.4 RATIO 2234) BILIRUBIN, TOTAL (test code = 0.4 MG/DL 220) ALKALINE PHOSPHATASE (test 92 U/L code = 2204) AST (test code = 2218) 20 U/L ALT (test code = 2219) 26 U/L [id number] 00:00:00 Test Item Value Reference Range Interpretation Comments AMYLASE (test code = 2205) 78 U/L [id number] 00:00:00 Test Item Value Reference Range Interpretation Comments AMYLASE (test code = 2205) 78 U/L [id number] 00:00:00 Test Item Value Reference Range Interpretation Comments LIPASE (test code = 2057) 39 U/L [id number] 00:00:00 Test Item Value Reference Range Interpretation Comments LIPASE (test code = 2057) 39 U/L [id number] 00:00:00 Test Item Value Reference Range Interpretation Comments LIPASE (test code = 2057) 39 U/L CBC W/AUTO [id number] 00:00:00 Test Item Value Reference Range Interpretation Comments WBC (test code = 1001) 3.6 K/UL RBC (test code = 1002) 5.03 M/UL HEMOGLOBIN (test code = 1003) 15.4 G/DL HEMATOCRIT (test code = 1004) 43.8 % MCV (test code = 1005) 87.1 fL MCH (test code = 1006) 30.6 PG MCHC (test code = 1007) 35.2 G/DL RDW (test code = 1038) 13.0 % NEUTROPHILS (test code = 1008) 35.1 % LYMPHOCYTES (test code = 1010) 50.4 % MONOCYTES (test code = 1011) 10.6 % EOSINOPHILS (test code = 1012) 2.5 % BASOPHILS (test code = 1013) 1.4 % PLATELET COUNT (test code = 1015) 218 K/UL CBC W/AUTO [id number] 00:00:00 Test Item Value Reference Range Interpretation Comments WBC (test code = 1001) 3.6 K/UL RBC (test code = 1002) 5.03 M/UL HEMOGLOBIN (test code = 1003) 15.4 G/DL HEMATOCRIT (test code = 1004) 43.8 % MCV (test code = 1005) 87.1 fL MCH (test code = 1006) 30.6 PG MCHC (test code = 1007) 35.2 G/DL RDW (test code = 1038) 13.0 % NEUTROPHILS (test code = 1008) 35.1 % LYMPHOCYTES (test code = 1010) 50.4 % MONOCYTES (test code = 1011) 10.6 % EOSINOPHILS (test code = 1012) 2.5 % BASOPHILS (test code = 1013) 1.4 % PLATELET COUNT (test code = 1015) 218 K/UL CBC W/AUTO [id number] 00:00:00 Test Item Value Reference Range Interpretation Comments WBC (test code = 1001) 3.6 K/UL RBC (test code = 1002) 5.03 M/UL HEMOGLOBIN (test code = 1003) 15.4 G/DL HEMATOCRIT (test code = 1004) 43.8 % MCV (test code = 1005) 87.1 fL MCH (test code = 1006) 30.6 PG MCHC (test code = 1007) 35.2 G/DL RDW (test code = 1038) 13.0 % NEUTROPHILS (test code = 1008) 35.1 % LYMPHOCYTES (test code = 1010) 50.4 % MONOCYTES (test code = 1011) 10.6 % EOSINOPHILS (test code = 1012) 2.5 % BASOPHILS (test code = 1013) 1.4 % PLATELET COUNT (test code = 1015) 218 K/UL CBC W/AUTO [id number] 00:00:00 Test Item Value Reference Range Interpretation Comments WBC (test code = 1001) 3.6 K/UL RBC (test code = 1002) 5.03 M/UL HEMOGLOBIN (test code = 1003) 15.4 G/DL HEMATOCRIT (test code = 1004) 43.8 % MCV (test code = 1005) 87.1 fL MCH (test code = 1006) 30.6 PG MCHC (test code = 1007) 35.2 G/DL RDW (test code = 1038) 13.0 % NEUTROPHILS (test code = 1008) 35.1 % LYMPHOCYTES (test code = 1010) 50.4 % MONOCYTES (test code = 1011) 10.6 % EOSINOPHILS (test code = 1012) 2.5 % BASOPHILS (test code = 1013) 1.4 % PLATELET COUNT (test code = 1015) 218 K/UL CBC W/AUTO [id number] 00:00:00 Test Item Value Reference Range Interpretation Comments WBC (test code = 1001) 3.6 K/UL RBC (test code = 1002) 5.03 M/UL HEMOGLOBIN (test code = 1003) 15.4 G/DL HEMATOCRIT (test code = 1004) 43.8 % MCV (test code = 1005) 87.1 fL MCH (test code = 1006) 30.6 PG MCHC (test code = 1007) 35.2 G/DL RDW (test code = 1038) 13.0 % NEUTROPHILS (test code = 1008) 35.1 % LYMPHOCYTES (test code = 1010) 50.4 % MONOCYTES (test code = 1011) 10.6 % EOSINOPHILS (test code = 1012) 2.5 % BASOPHILS (test code = 1013) 1.4 % PLATELET COUNT (test code = 1015) 218 K/UL COMPREHENSIVE METABOLIC [id number] 00:00:00 Test Item Value Reference Range Interpretation Comments GLUCOSE (test code = 2217) 81 MG/DL BUN (test code = 2208) 12 MG/DL CREATININE (test code = 2214) 0.49 MG/DL eGFR AMER. (test code 131 ML/MIN/1.73 = 59899) eGFR NON- AMER. (test 113 ML/MIN/1.73 code = 69210) CALC BUN/CREAT (test code = 24 RATIO 2235) SODIUM (test code = 2231) 140 MEQ/L POTASSIUM (test code = 2228) 4.2 MEQ/L CHLORIDE (test code = 2215) 100 MEQ/L CARBON DIOXIDE (test code = 26 MEQ/L 2205) CALCIUM (test code = 2209) 9.5 MG/DL PROTEIN, TOTAL (test code = 7.3 G/DL 2228) ALBUMIN (test code = 2201) 4.3 G/DL CALC GLOBULIN (test code = 3.0 G/DL 2240) CALC A/G RATIO (test code = 1.4 RATIO 2234) BILIRUBIN, TOTAL (test code = 0.4 MG/DL 2206) ALKALINE PHOSPHATASE (test 92 U/L code = 2204) AST (test code = 2218) 20 U/L ALT (test code = 2219) 26 U/L COMPREHENSIVE METABOLIC [id number] 00:00:00 Test Item Value Reference Range Interpretation Comments GLUCOSE (test code = 2217) 81 MG/DL BUN (test code = 2208) 12 MG/DL CREATININE (test code = 2214) 0.49 MG/DL eGFR AMER. (test code 131 ML/MIN/1.73 = 74381) eGFR NON- AMER. (test 113 ML/MIN/1.73 code = 23066) CALC BUN/CREAT (test code = 24 RATIO 2235) SODIUM (test code = 2231) 140 MEQ/L POTASSIUM (test code = 2228) 4.2 MEQ/L CHLORIDE (test code = 2215) 100 MEQ/L CARBON DIOXIDE (test code = 26 MEQ/L 2205) CALCIUM (test code = 2209) 9.5 MG/DL PROTEIN, TOTAL (test code = 7.3 G/DL 2228) ALBUMIN (test code = 2201) 4.3 G/DL CALC GLOBULIN (test code = 3.0 G/DL 2240) CALC A/G RATIO (test code = 1.4 RATIO 2234) BILIRUBIN, TOTAL (test code = 0.4 MG/DL 2206) ALKALINE PHOSPHATASE (test 92 U/L code = 2204) AST (test code = 2218) 20 U/L ALT (test code = 2219) 26 U/L [id number] 00:00:00 Test Item Value Reference Range Interpretation Comments AMYLASE (test code = 2205) 78 U/L [id number] 00:00:00 Test Item Value Reference Range Interpretation Comments AMYLASE (test code = 2205) 78 U/L [id number] 00:00:00 Test Item Value Reference Range Interpretation Comments LIPASE (test code = 2057) 39 U/L COMPREHENSIVE METABOLIC [id number] 00:00:00 Test Item Value Reference Range Interpretation Comments GLUCOSE (test code = 2217) 81 MG/DL BUN (test code = 2208) 12 MG/DL CREATININE (test code = 2214) 0.49 MG/DL eGFR AMER. (test code 131 ML/MIN/1.73 = 51782) eGFR NON- AMER. (test 113 ML/MIN/1.73 code = 49839) CALC BUN/CREAT (test code = 24 RATIO 2235) SODIUM (test code = 2231) 140 MEQ/L POTASSIUM (test code = 2228) 4.2 MEQ/L CHLORIDE (test code = 2215) 100 MEQ/L CARBON DIOXIDE (test code = 26 MEQ/L 2206) CALCIUM (test code = 2209) 9.5 MG/DL PROTEIN, TOTAL (test code = 7.3 G/DL 222) ALBUMIN (test code = 2201) 4.3 G/DL CALC GLOBULIN (test code = 3.0 G/DL 2240) CALC A/G RATIO (test code = 1.4 RATIO 2234) BILIRUBIN, TOTAL (test code = 0.4 MG/DL 2206) ALKALINE PHOSPHATASE (test 92 U/L code = 2204) AST (test code = 2218) 20 U/L ALT (test code = 2219) 26 U/L [id number] 00:00:00 Test Item Value Reference Range Interpretation Comments LIPASE (test code = 2057) 39 U/L [id number] 00:00:00 Test Item Value Reference Range Interpretation Comments LIPASE (test code = 2057) 39 U/L [id number] 00:00:00 Test Item Value Reference Range Interpretation Comments AMYLASE (test code = 5) 78 U/L [id number] 00:00:00 Test Item Value Reference Range Interpretation Comments LIPASE (test code = 2057) 39 U/L [id number] 00:00:00 Test Item Value Reference Range Interpretation Comments LIPASE (test code = 2057) 39 U/L CBC W/AUTO [id number] 00:00:00 Test Item Value Reference Range Interpretation Comments WBC (test code = 1001) 3.6 K/UL RBC (test code = 1002) 5.03 M/UL HEMOGLOBIN (test code = 1003) 15.4 G/DL HEMATOCRIT (test code = 1004) 43.8 % MCV (test code = 1005) 87.1 fL MCH (test code = 1006) 30.6 PG MCHC (test code = 1007) 35.2 G/DL RDW (test code = 1038) 13.0 % NEUTROPHILS (test code = 1008) 35.1 % LYMPHOCYTES (test code = 1010) 50.4 % MONOCYTES (test code = 1011) 10.6 % EOSINOPHILS (test code = 1012) 2.5 % BASOPHILS (test code = 1013) 1.4 % PLATELET COUNT (test code = 1015) 218 K/UL CBC W/AUTO [id number] 00:00:00 Test Item Value Reference Range Interpretation Comments WBC (test code = 1001) 3.6 K/UL RBC (test code = 1002) 5.03 M/UL HEMOGLOBIN (test code = 1003) 15.4 G/DL HEMATOCRIT (test code = 1004) 43.8 % MCV (test code = 1005) 87.1 fL MCH (test code = 1006) 30.6 PG MCHC (test code = 1007) 35.2 G/DL RDW (test code = 1038) 13.0 % NEUTROPHILS (test code = 1008) 35.1 % LYMPHOCYTES (test code = 1010) 50.4 % MONOCYTES (test code = 1011) 10.6 % EOSINOPHILS (test code = 1012) 2.5 % BASOPHILS (test code = 1013) 1.4 % PLATELET COUNT (test code = 1015) 218 K/UL COMPREHENSIVE METABOLIC [id number] 00:00:00 Test Item Value Reference Range Interpretation Comments GLUCOSE (test code = 2217) 81 MG/DL BUN (test code = 2208) 12 MG/DL CREATININE (test code = 2214) 0.49 MG/DL eGFR AMER. (test code 131 ML/MIN/1.73 = 83207) eGFR NON- AMER. (test 113 ML/MIN/1.73 code = 64814) CALC BUN/CREAT (test code = 24 RATIO 2235) SODIUM (test code = 2231) 140 MEQ/L POTASSIUM (test code = 2228) 4.2 MEQ/L CHLORIDE (test code = 2215) 100 MEQ/L CARBON DIOXIDE (test code = 26 MEQ/L 2205) CALCIUM (test code = 2209) 9.5 MG/DL PROTEIN, TOTAL (test code = 7.3 G/DL 2228) ALBUMIN (test code = 2201) 4.3 G/DL CALC GLOBULIN (test code = 3.0 G/DL 2239) CALC A/G RATIO (test code = 1.4 RATIO 2233) BILIRUBIN, TOTAL (test code = 0.4 MG/DL 2206) ALKALINE PHOSPHATASE (test 92 U/L code = 2204) AST (test code = 2218) 20 U/L ALT (test code = 2219) 26 U/L [id number] 00:00:00 Test Item Value Reference Range Interpretation Comments AMYLASE (test code = 2205) 78 U/L [id number] 00:00:00 Test Item Value Reference Range Interpretation Comments LIPASE (test code = 2057) 39 U/L [id number] 00:00:00 Test Item Value Reference Range Interpretation Comments LIPASE (test code = 2057) 39 U/L CBC W/AUTO [id number] 00:00:00 Test Item Value Reference Range Interpretation Comments WBC (test code = 1001) 3.6 K/UL RBC (test code = 1002) 5.03 M/UL HEMOGLOBIN (test code = 1003) 15.4 G/DL HEMATOCRIT (test code = 1004) 43.8 % MCV (test code = 1005) 87.1 fL MCH (test code = 1006) 30.6 PG MCHC (test code = 1007) 35.2 G/DL RDW (test code = 1038) 13.0 % NEUTROPHILS (test code = 1008) 35.1 % LYMPHOCYTES (test code = 1010) 50.4 % MONOCYTES (test code = 1011) 10.6 % EOSINOPHILS (test code = 1012) 2.5 % BASOPHILS (test code = 1013) 1.4 % PLATELET COUNT (test code = 1015) 218 K/UL CBC W/AUTO [id number] 00:00:00 Test Item Value Reference Range Interpretation Comments WBC (test code = 1001) 3.6 K/UL RBC (test code = 1002) 5.03 M/UL HEMOGLOBIN (test code = 1003) 15.4 G/DL HEMATOCRIT (test code = 1004) 43.8 % MCV (test code = 1005) 87.1 fL MCH (test code = 1006) 30.6 PG MCHC (test code = 1007) 35.2 G/DL RDW (test code = 1038) 13.0 % NEUTROPHILS (test code = 1008) 35.1 % LYMPHOCYTES (test code = 1010) 50.4 % MONOCYTES (test code = 1011) 10.6 % EOSINOPHILS (test code = 1012) 2.5 % BASOPHILS (test code = 1013) 1.4 % PLATELET COUNT (test code = 1015) 218 K/UL COMPREHENSIVE METABOLIC [id number] 00:00:00 Test Item Value Reference Range Interpretation Comments GLUCOSE (test code = 2217) 81 MG/DL BUN (test code = 2208) 12 MG/DL CREATININE (test code = 2214) 0.49 MG/DL eGFR AMER. (test code 131 ML/MIN/1.73 = 84382) eGFR NON- AMER. (test 113 ML/MIN/1.73 code = 55675) CALC BUN/CREAT (test code = 24 RATIO 2235) SODIUM (test code = 2231) 140 MEQ/L POTASSIUM (test code = 2228) 4.2 MEQ/L CHLORIDE (test code = 2215) 100 MEQ/L CARBON DIOXIDE (test code = 26 MEQ/L 220) CALCIUM (test code = 2209) 9.5 MG/DL PROTEIN, TOTAL (test code = 7.3 G/DL 2228) ALBUMIN (test code = 2201) 4.3 G/DL CALC GLOBULIN (test code = 3.0 G/DL 2240) CALC A/G RATIO (test code = 1.4 RATIO 2234) BILIRUBIN, TOTAL (test code = 0.4 MG/DL 2207) ALKALINE PHOSPHATASE (test 92 U/L code = 2204) AST (test code = 2218) 20 U/L ALT (test code = 2219) 26 U/L [id number] 00:00:00 Test Item Value Reference Range Interpretation Comments AMYLASE (test code = 2205) 78 U/L [id number] 00:00:00 Test Item Value Reference Range Interpretation Comments LIPASE (test code = 2057) 39 U/L [id number] 00:00:00 Test Item Value Reference Range Interpretation Comments LIPASE (test code = 2057) 39 U/L CBC W/AUTO [id number] 00:00:00 Test Item Value Reference Range Interpretation Comments WBC (test code = 1001) 3.6 K/UL RBC (test code = 1002) 5.03 M/UL HEMOGLOBIN (test code = 1003) 15.4 G/DL HEMATOCRIT (test code = 1004) 43.8 % MCV (test code = 1005) 87.1 fL MCH (test code = 1006) 30.6 PG MCHC (test code = 1007) 35.2 G/DL RDW (test code = 1038) 13.0 % NEUTROPHILS (test code = 1008) 35.1 % LYMPHOCYTES (test code = 1010) 50.4 % MONOCYTES (test code = 1011) 10.6 % EOSINOPHILS (test code = 1012) 2.5 % BASOPHILS (test code = 1013) 1.4 % PLATELET COUNT (test code = 1015) 218 K/UL CBC W/AUTO [id number] 00:00:00 Test Item Value Reference Range Interpretation Comments WBC (test code = 1001) 3.6 K/UL RBC (test code = 1002) 5.03 M/UL HEMOGLOBIN (test code = 1003) 15.4 G/DL HEMATOCRIT (test code = 1004) 43.8 % MCV (test code = 1005) 87.1 fL MCH (test code = 1006) 30.6 PG MCHC (test code = 1007) 35.2 G/DL RDW (test code = 1038) 13.0 % NEUTROPHILS (test code = 1008) 35.1 % LYMPHOCYTES (test code = 1010) 50.4 % MONOCYTES (test code = 1011) 10.6 % EOSINOPHILS (test code = 1012) 2.5 % BASOPHILS (test code = 1013) 1.4 % PLATELET COUNT (test code = 1015) 218 K/UL CBC W/AUTO [id number] 00:00:00 Test Item Value Reference Range Interpretation Comments WBC (test code = 1001) 3.6 K/UL RBC (test code = 1002) 5.03 M/UL HEMOGLOBIN (test code = 1003) 15.4 G/DL HEMATOCRIT (test code = 1004) 43.8 % MCV (test code = 1005) 87.1 fL MCH (test code = 1006) 30.6 PG MCHC (test code = 1007) 35.2 G/DL RDW (test code = 1038) 13.0 % NEUTROPHILS (test code = 1008) 35.1 % LYMPHOCYTES (test code = 1010) 50.4 % MONOCYTES (test code = 1011) 10.6 % EOSINOPHILS (test code = 1012) 2.5 % BASOPHILS (test code = 1013) 1.4 % PLATELET COUNT (test code = 1015) 218 K/UL COMPREHENSIVE METABOLIC [id number] 00:00:00 Test Item Value Reference Range Interpretation Comments GLUCOSE (test code = 2217) 81 MG/DL BUN (test code = 2208) 12 MG/DL CREATININE (test code = 2214) 0.49 MG/DL eGFR AMER. (test code 131 ML/MIN/1.73 = 73561) eGFR NON- AMER. (test 113 ML/MIN/1.73 code = 38680) CALC BUN/CREAT (test code = 24 RATIO 2235) SODIUM (test code = 2231) 140 MEQ/L POTASSIUM (test code = 2228) 4.2 MEQ/L CHLORIDE (test code = 2215) 100 MEQ/L CARBON DIOXIDE (test code = 26 MEQ/L 2205) CALCIUM (test code = 2209) 9.5 MG/DL PROTEIN, TOTAL (test code = 7.3 G/DL 2228) ALBUMIN (test code = 2201) 4.3 G/DL CALC GLOBULIN (test code = 3.0 G/DL 224) CALC A/G RATIO (test code = 1.4 RATIO 2234) BILIRUBIN, TOTAL (test code = 0.4 MG/DL 2206) ALKALINE PHOSPHATASE (test 92 U/L code = 2204) AST (test code = 2218) 20 U/L ALT (test code = 2219) 26 U/L COMPREHENSIVE METABOLIC [id number] 00:00:00 Test Item Value Reference Range Interpretation Comments GLUCOSE (test code = 2217) 81 MG/DL BUN (test code = 2208) 12 MG/DL CREATININE (test code = 2214) 0.49 MG/DL eGFR AMER. (test code 131 ML/MIN/1.73 = 08861) eGFR NON- AMER. (test 113 ML/MIN/1.73 code = 66800) CALC BUN/CREAT (test code = 24 RATIO 2235) SODIUM (test code = 2231) 140 MEQ/L POTASSIUM (test code = 2228) 4.2 MEQ/L CHLORIDE (test code = 2215) 100 MEQ/L CARBON DIOXIDE (test code = 26 MEQ/L 2205) CALCIUM (test code = 2209) 9.5 MG/DL PROTEIN, TOTAL (test code = 7.3 G/DL 2228) ALBUMIN (test code = 2201) 4.3 G/DL CALC GLOBULIN (test code = 3.0 G/DL 2240) CALC A/G RATIO (test code = 1.4 RATIO 2234) BILIRUBIN, TOTAL (test code = 0.4 MG/DL 2206) ALKALINE PHOSPHATASE (test 92 U/L code = 2204) AST (test code = 2218) 20 U/L ALT (test code = 2219) 26 U/L LIPID [id number] 00:00:00 Test Item Value Reference Range Interpretation Comments CHOLESTEROL (test code = 2210) 219 MG/DL TRIGLYCERIDES (test code = 2232) 151 MG/DL HDL CHOLESTEROL (test code = 2220) 55 MG/DL CALC LDL CHOL (test code = 2237) 134 MG/DL RISK RATIO LDL/HDL (test code = 2.43 RATIO 2238) LIPID [id number] 00:00:00 Test Item Value Reference Range Interpretation Comments CHOLESTEROL (test code = 2210) 219 MG/DL TRIGLYCERIDES (test code = 2232) 151 MG/DL HDL CHOLESTEROL (test code = 2220) 55 MG/DL CALC LDL CHOL (test code = 2237) 134 MG/DL RISK RATIO LDL/HDL (test code = 2.43 RATIO 2238) THYROID II PROFILE (T3U, T4, T7, TSH)2016-08-26 00:00:00 Test Item Value Reference Range Interpretation Comments T3 UPTAKE (test code = 2817) 30.0 % T4 (THYROXINE) (test code = 2819) 5.5 UG/DL CALCULATED T7 (FTI) (test code = 1.65 2820) TSH (test code = 2821) 2.46 UIU/ML THYROID II PROFILE (T3U, T4, T7, TSH)2016-08-26 00:00:00 Test Item Value Reference Range Interpretation Comments T3 UPTAKE (test code = 2817) 30.0 % T4 (THYROXINE) (test code = 2819) 5.5 UG/DL CALCULATED T7 (FTI) (test code = 1.65 2820) TSH (test code = 2821) 2.46 UIU/ML HEMOGLOBIN [id number] 00:00:00 Test Item Value Reference Range Interpretation Comments HEMOGLOBIN A1c (test code = 94652) 5.4 % HEMOGLOBIN [id number] 00:00:00 Test Item Value Reference Range Interpretation Comments HEMOGLOBIN A1c (test code = 48939) 5.4 % HEMOGLOBIN [id number] 00:00:00 Test Item Value Reference Range Interpretation Comments HEMOGLOBIN A1c (test code = 00409) 5.4 % CBC W/AUTO [id number] 00:00:00 Test Item Value Reference Range Interpretation Comments WBC (test code = 1001) 6.2 K/UL RBC (test code = 1002) 4.97 M/UL HEMOGLOBIN (test code = 1003) 15.0 G/DL HEMATOCRIT (test code = 1004) 43.8 % MCV (test code = 1005) 88.1 fL MCH (test code = 1006) 30.2 PG MCHC (test code = 1007) 34.2 G/DL RDW (test code = 1038) 13.3 % NEUTROPHILS (test code = 1008) 61.1 % LYMPHOCYTES (test code = 1010) 29.4 % MONOCYTES (test code = 1011) 6.7 % EOSINOPHILS (test code = 1012) 2.0 % BASOPHILS (test code = 1013) 0.8 % PLATELET COUNT (test code = 1015) 229 K/UL CBC W/AUTO [id number] 00:00:00 Test Item Value Reference Range Interpretation Comments WBC (test code = 1001) 6.2 K/UL RBC (test code = 1002) 4.97 M/UL HEMOGLOBIN (test code = 1003) 15.0 G/DL HEMATOCRIT (test code = 1004) 43.8 % MCV (test code = 1005) 88.1 fL MCH (test code = 1006) 30.2 PG MCHC (test code = 1007) 34.2 G/DL RDW (test code = 1038) 13.3 % NEUTROPHILS (test code = 1008) 61.1 % LYMPHOCYTES (test code = 1010) 29.4 % MONOCYTES (test code = 1011) 6.7 % EOSINOPHILS (test code = 1012) 2.0 % BASOPHILS (test code = 1013) 0.8 % PLATELET COUNT (test code = 1015) 229 K/UL CBC W/AUTO [id number] 00:00:00 Test Item Value Reference Range Interpretation Comments WBC (test code = 1001) 6.2 K/UL RBC (test code = 1002) 4.97 M/UL HEMOGLOBIN (test code = 1003) 15.0 G/DL HEMATOCRIT (test code = 1004) 43.8 % MCV (test code = 1005) 88.1 fL MCH (test code = 1006) 30.2 PG MCHC (test code = 1007) 34.2 G/DL RDW (test code = 1038) 13.3 % NEUTROPHILS (test code = 1008) 61.1 % LYMPHOCYTES (test code = 1010) 29.4 % MONOCYTES (test code = 1011) 6.7 % EOSINOPHILS (test code = 1012) 2.0 % BASOPHILS (test code = 1013) 0.8 % PLATELET COUNT (test code = 1015) 229 K/UL COMPREHENSIVE METABOLIC [id number] 00:00:00 Test Item Value Reference Range Interpretation Comments GLUCOSE (test code = 2217) 91 MG/DL BUN (test code = 2208) 9 MG/DL CREATININE (test code = 2214) 0.52 MG/DL eGFR AMER. (test code 129 ML/MIN/1.73 = 20232) eGFR NON- AMER. (test 111 ML/MIN/1.73 code = 94863) CALC BUN/CREAT (test code = 17 RATIO 2235) SODIUM (test code = 2231) 142 MEQ/L POTASSIUM (test code = 2228) 4.4 MEQ/L CHLORIDE (test code = 2215) 102 MEQ/L CARBON DIOXIDE (test code = 22 MEQ/L 2206) CALCIUM (test code = 2209) 9.1 MG/DL PROTEIN, TOTAL (test code = 7.1 G/DL 2229) ALBUMIN (test code = 2201) 4.2 G/DL CALC GLOBULIN (test code = 2.9 G/DL 2240) CALC A/G RATIO (test code = 1.4 RATIO 2234) BILIRUBIN, TOTAL (test code = 0.6 MG/DL 2206) ALKALINE PHOSPHATASE (test 84 U/L code = 2204) AST (test code = 2218) 22 U/L ALT (test code = 2219) 21 U/L COMPREHENSIVE METABOLIC [id number] 00:00:00 Test Item Value Reference Range Interpretation Comments GLUCOSE (test code = 2217) 91 MG/DL BUN (test code = 2208) 9 MG/DL CREATININE (test code = 2214) 0.52 MG/DL eGFR AMER. (test code 129 ML/MIN/1.73 = 82804) eGFR NON- AMER. (test 111 ML/MIN/1.73 code = 37121) CALC BUN/CREAT (test code = 17 RATIO 2235) SODIUM (test code = 2231) 142 MEQ/L POTASSIUM (test code = 2228) 4.4 MEQ/L CHLORIDE (test code = 2215) 102 MEQ/L CARBON DIOXIDE (test code = 22 MEQ/L 2206) CALCIUM (test code = 2209) 9.1 MG/DL PROTEIN, TOTAL (test code = 7.1 G/DL 2229) ALBUMIN (test code = 2201) 4.2 G/DL CALC GLOBULIN (test code = 2.9 G/DL 2240) CALC A/G RATIO (test code = 1.4 RATIO 2234) BILIRUBIN, TOTAL (test code = 0.6 MG/DL 2206) ALKALINE PHOSPHATASE (test 84 U/L code = 2204) AST (test code = 2218) 22 U/L ALT (test code = 2219) 21 U/L LIPID [id number] 00:00:00 Test Item Value Reference Range Interpretation Comments CHOLESTEROL (test code = 2210) 219 MG/DL TRIGLYCERIDES (test code = 2232) 151 MG/DL HDL CHOLESTEROL (test code = 2220) 55 MG/DL CALC LDL CHOL (test code = 2237) 134 MG/DL RISK RATIO LDL/HDL (test code = 2.43 RATIO 2238) LIPID [id number] 00:00:00 Test Item Value Reference Range Interpretation Comments CHOLESTEROL (test code = 2210) 219 MG/DL TRIGLYCERIDES (test code = 2232) 151 MG/DL HDL CHOLESTEROL (test code = 2220) 55 MG/DL CALC LDL CHOL (test code = 2237) 134 MG/DL RISK RATIO LDL/HDL (test code = 2.43 RATIO 2238) THYROID II PROFILE (T3U, T4, T7, TSH)2016-08-26 00:00:00 Test Item Value Reference Range Interpretation Comments T3 UPTAKE (test code = 2817) 30.0 % T4 (THYROXINE) (test code = 2819) 5.5 UG/DL CALCULATED T7 (FTI) (test code = 1.65 2820) TSH (test code = 2821) 2.46 UIU/ML THYROID II PROFILE (T3U, T4, T7, TSH)2016-08-26 00:00:00 Test Item Value Reference Range Interpretation Comments T3 UPTAKE (test code = 2817) 30.0 % T4 (THYROXINE) (test code = 2819) 5.5 UG/DL CALCULATED T7 (FTI) (test code = 1.65 2820) TSH (test code = 2821) 2.46 UIU/ML HEMOGLOBIN [id number] 00:00:00 Test Item Value Reference Range Interpretation Comments HEMOGLOBIN A1c (test code = 31887) 5.4 % HEMOGLOBIN [id number] 00:00:00 Test Item Value Reference Range Interpretation Comments HEMOGLOBIN A1c (test code = 16400) 5.4 % HEMOGLOBIN [id number] 00:00:00 Test Item Value Reference Range Interpretation Comments HEMOGLOBIN A1c (test code = 19023) 5.4 % HEMOGLOBIN [id number] 00:00:00 Test Item Value Reference Range Interpretation Comments HEMOGLOBIN A1c (test code = 59424) 5.4 % CBC W/AUTO [id number] 00:00:00 Test Item Value Reference Range Interpretation Comments WBC (test code = 1001) 6.2 K/UL RBC (test code = 1002) 4.97 M/UL HEMOGLOBIN (test code = 1003) 15.0 G/DL HEMATOCRIT (test code = 1004) 43.8 % MCV (test code = 1005) 88.1 fL MCH (test code = 1006) 30.2 PG MCHC (test code = 1007) 34.2 G/DL RDW (test code = 1038) 13.3 % NEUTROPHILS (test code = 1008) 61.1 % LYMPHOCYTES (test code = 1010) 29.4 % MONOCYTES (test code = 1011) 6.7 % EOSINOPHILS (test code = 1012) 2.0 % BASOPHILS (test code = 1013) 0.8 % PLATELET COUNT (test code = 1015) 229 K/UL CBC W/AUTO [id number] 00:00:00 Test Item Value Reference Range Interpretation Comments WBC (test code = 1001) 6.2 K/UL RBC (test code = 1002) 4.97 M/UL HEMOGLOBIN (test code = 1003) 15.0 G/DL HEMATOCRIT (test code = 1004) 43.8 % MCV (test code = 1005) 88.1 fL MCH (test code = 1006) 30.2 PG MCHC (test code = 1007) 34.2 G/DL RDW (test code = 1038) 13.3 % NEUTROPHILS (test code = 1008) 61.1 % LYMPHOCYTES (test code = 1010) 29.4 % MONOCYTES (test code = 1011) 6.7 % EOSINOPHILS (test code = 1012) 2.0 % BASOPHILS (test code = 1013) 0.8 % PLATELET COUNT (test code = 1015) 229 K/UL CBC W/AUTO [id number] 00:00:00 Test Item Value Reference Range Interpretation Comments WBC (test code = 1001) 6.2 K/UL RBC (test code = 1002) 4.97 M/UL HEMOGLOBIN (test code = 1003) 15.0 G/DL HEMATOCRIT (test code = 1004) 43.8 % MCV (test code = 1005) 88.1 fL MCH (test code = 1006) 30.2 PG MCHC (test code = 1007) 34.2 G/DL RDW (test code = 1038) 13.3 % NEUTROPHILS (test code = 1008) 61.1 % LYMPHOCYTES (test code = 1010) 29.4 % MONOCYTES (test code = 1011) 6.7 % EOSINOPHILS (test code = 1012) 2.0 % BASOPHILS (test code = 1013) 0.8 % PLATELET COUNT (test code = 1015) 229 K/UL HEMOGLOBIN [id number] 00:00:00 Test Item Value Reference Range Interpretation Comments HEMOGLOBIN A1c (test code = 20227) 5.4 % COMPREHENSIVE METABOLIC [id number] 00:00:00 Test Item Value Reference Range Interpretation Comments GLUCOSE (test code = 2217) 91 MG/DL BUN (test code = 2208) 9 MG/DL CREATININE (test code = 2214) 0.52 MG/DL eGFR AMER. (test code 129 ML/MIN/1.73 = 96985) eGFR NON- AMER. (test 111 ML/MIN/1.73 code = 51080) CALC BUN/CREAT (test code = 17 RATIO 2235) SODIUM (test code = 2231) 142 MEQ/L POTASSIUM (test code = 2228) 4.4 MEQ/L CHLORIDE (test code = 2215) 102 MEQ/L CARBON DIOXIDE (test code = 22 MEQ/L 220) CALCIUM (test code = 2209) 9.1 MG/DL PROTEIN, TOTAL (test code = 7.1 G/DL 2228) ALBUMIN (test code = 2201) 4.2 G/DL CALC GLOBULIN (test code = 2.9 G/DL 2240) CALC A/G RATIO (test code = 1.4 RATIO 2233) BILIRUBIN, TOTAL (test code = 0.6 MG/DL 2206) ALKALINE PHOSPHATASE (test 84 U/L code = 2204) AST (test code = 2218) 22 U/L ALT (test code = 2219) 21 U/L COMPREHENSIVE METABOLIC [id number] 00:00:00 Test Item Value Reference Range Interpretation Comments GLUCOSE (test code = 2217) 91 MG/DL BUN (test code = 2208) 9 MG/DL CREATININE (test code = 2214) 0.52 MG/DL eGFR AMER. (test code 129 ML/MIN/1.73 = 55322) eGFR NON- AMER. (test 111 ML/MIN/1.73 code = 73305) CALC BUN/CREAT (test code = 17 RATIO 2235) SODIUM (test code = 2231) 142 MEQ/L POTASSIUM (test code = 2228) 4.4 MEQ/L CHLORIDE (test code = 2215) 102 MEQ/L CARBON DIOXIDE (test code = 22 MEQ/L 2205) CALCIUM (test code = 2209) 9.1 MG/DL PROTEIN, TOTAL (test code = 7.1 G/DL 2228) ALBUMIN (test code = 2201) 4.2 G/DL CALC GLOBULIN (test code = 2.9 G/DL 2239) CALC A/G RATIO (test code = 1.4 RATIO 2234) BILIRUBIN, TOTAL (test code = 0.6 MG/DL 2206) ALKALINE PHOSPHATASE (test 84 U/L code = 2204) AST (test code = 2218) 22 U/L ALT (test code = 2219) 21 U/L LIPID [id number] 00:00:00 Test Item Value Reference Range Interpretation Comments CHOLESTEROL (test code = 2210) 219 MG/DL TRIGLYCERIDES (test code = 2232) 151 MG/DL HDL CHOLESTEROL (test code = 2220) 55 MG/DL CALC LDL CHOL (test code = 2237) 134 MG/DL RISK RATIO LDL/HDL (test code = 2.43 RATIO 2238) LIPID [id number] 00:00:00 Test Item Value Reference Range Interpretation Comments CHOLESTEROL (test code = 2210) 219 MG/DL TRIGLYCERIDES (test code = 2232) 151 MG/DL HDL CHOLESTEROL (test code = 2220) 55 MG/DL CALC LDL CHOL (test code = 2237) 134 MG/DL RISK RATIO LDL/HDL (test code = 2.43 RATIO 2238) THYROID II PROFILE (T3U, T4, T7, TSH)[id number] 00:00:00 Test Item Value Reference Range Interpretation Comments T3 UPTAKE (test code = 2817) 30.0 % T4 (THYROXINE) (test code = 2819) 5.5 UG/DL CALCULATED T7 (FTI) (test code = 1.65 1600) TSH (test code = 2821) 2.46 UIU/ML THYROID II PROFILE (T3U, T4, T7, TSH)2016-08-26 00:00:00 Test Item Value Reference Range Interpretation Comments T3 UPTAKE (test code = 2817) 30.0 % T4 (THYROXINE) (test code = 2819) 5.5 UG/DL CALCULATED T7 (FTI) (test code = 1.65 2820) TSH (test code = 2821) 2.46 UIU/ML CBC W/AUTO [id number] 00:00:00 Test Item Value Reference Range Interpretation Comments WBC (test code = 1001) 6.2 K/UL RBC (test code = 1002) 4.97 M/UL HEMOGLOBIN (test code = 1003) 15.0 G/DL HEMATOCRIT (test code = 1004) 43.8 % MCV (test code = 1005) 88.1 fL MCH (test code = 1006) 30.2 PG MCHC (test code = 1007) 34.2 G/DL RDW (test code = 1038) 13.3 % NEUTROPHILS (test code = 1008) 61.1 % LYMPHOCYTES (test code = 1010) 29.4 % MONOCYTES (test code = 1011) 6.7 % EOSINOPHILS (test code = 1012) 2.0 % BASOPHILS (test code = 1013) 0.8 % PLATELET COUNT (test code = 1015) 229 K/UL CBC W/AUTO [id number] 00:00:00 Test Item Value Reference Range Interpretation Comments WBC (test code = 1001) 6.2 K/UL RBC (test code = 1002) 4.97 M/UL HEMOGLOBIN (test code = 1003) 15.0 G/DL HEMATOCRIT (test code = 1004) 43.8 % MCV (test code = 1005) 88.1 fL MCH (test code = 1006) 30.2 PG MCHC (test code = 1007) 34.2 G/DL RDW (test code = 1038) 13.3 % NEUTROPHILS (test code = 1008) 61.1 % LYMPHOCYTES (test code = 1010) 29.4 % MONOCYTES (test code = 1011) 6.7 % EOSINOPHILS (test code = 1012) 2.0 % BASOPHILS (test code = 1013) 0.8 % PLATELET COUNT (test code = 1015) 229 K/UL COMPREHENSIVE METABOLIC [id number] 00:00:00 Test Item Value Reference Range Interpretation Comments GLUCOSE (test code = 2217) 91 MG/DL BUN (test code = 2208) 9 MG/DL CREATININE (test code = 2214) 0.52 MG/DL eGFR AMER. (test code 129 ML/MIN/1.73 = 85599) eGFR NON- AMER. (test 111 ML/MIN/1.73 code = 71405) CALC BUN/CREAT (test code = 17 RATIO 2235) SODIUM (test code = 2231) 142 MEQ/L POTASSIUM (test code = 2228) 4.4 MEQ/L CHLORIDE (test code = 2215) 102 MEQ/L CARBON DIOXIDE (test code = 22 MEQ/L 2205) CALCIUM (test code = 2209) 9.1 MG/DL PROTEIN, TOTAL (test code = 7.1 G/DL 2228) ALBUMIN (test code = 2201) 4.2 G/DL CALC GLOBULIN (test code = 2.9 G/DL 224) CALC A/G RATIO (test code = 1.4 RATIO 2234) BILIRUBIN, TOTAL (test code = 0.6 MG/DL 2206) ALKALINE PHOSPHATASE (test 84 U/L code = 2204) AST (test code = 2218) 22 U/L ALT (test code = 2219) 21 U/L LIPID [id number] 00:00:00 Test Item Value Reference Range Interpretation Comments CHOLESTEROL (test code = 2210) 219 MG/DL TRIGLYCERIDES (test code = 2232) 151 MG/DL HDL CHOLESTEROL (test code = 2220) 55 MG/DL CALC LDL CHOL (test code = 2237) 134 MG/DL RISK RATIO LDL/HDL (test code = 2.43 RATIO 2238) THYROID II PROFILE (T3U, T4, T7, TSH)2016-08-26 00:00:00 Test Item Value Reference Range Interpretation Comments T3 UPTAKE (test code = 2817) 30.0 % T4 (THYROXINE) (test code = 2819) 5.5 UG/DL CALCULATED T7 (FTI) (test code = 1.65 4340) TSH (test code = 2821) 2.46 UIU/ML HEMOGLOBIN [id number] 00:00:00 Test Item Value Reference Range Interpretation Comments HEMOGLOBIN A1c (test code = 39743) 5.4 % HEMOGLOBIN [id number] 00:00:00 Test Item Value Reference Range Interpretation Comments HEMOGLOBIN A1c (test code = 27667) 5.4 % CBC W/AUTO [id number] 00:00:00 Test Item Value Reference Range Interpretation Comments WBC (test code = 1001) 6.2 K/UL RBC (test code = 1002) 4.97 M/UL HEMOGLOBIN (test code = 1003) 15.0 G/DL HEMATOCRIT (test code = 1004) 43.8 % MCV (test code = 1005) 88.1 fL MCH (test code = 1006) 30.2 PG MCHC (test code = 1007) 34.2 G/DL RDW (test code = 1038) 13.3 % NEUTROPHILS (test code = 1008) 61.1 % LYMPHOCYTES (test code = 1010) 29.4 % MONOCYTES (test code = 1011) 6.7 % EOSINOPHILS (test code = 1012) 2.0 % BASOPHILS (test code = 1013) 0.8 % PLATELET COUNT (test code = 1015) 229 K/UL CBC W/AUTO [id number] 00:00:00 Test Item Value Reference Range Interpretation Comments WBC (test code = 1001) 6.2 K/UL RBC (test code = 1002) 4.97 M/UL HEMOGLOBIN (test code = 1003) 15.0 G/DL HEMATOCRIT (test code = 1004) 43.8 % MCV (test code = 1005) 88.1 fL MCH (test code = 1006) 30.2 PG MCHC (test code = 1007) 34.2 G/DL RDW (test code = 1038) 13.3 % NEUTROPHILS (test code = 1008) 61.1 % LYMPHOCYTES (test code = 1010) 29.4 % MONOCYTES (test code = 1011) 6.7 % EOSINOPHILS (test code = 1012) 2.0 % BASOPHILS (test code = 1013) 0.8 % PLATELET COUNT (test code = 1015) 229 K/UL COMPREHENSIVE METABOLIC [id number] 00:00:00 Test Item Value Reference Range Interpretation Comments GLUCOSE (test code = 2217) 91 MG/DL BUN (test code = 2208) 9 MG/DL CREATININE (test code = 2214) 0.52 MG/DL eGFR AMER. (test code 129 ML/MIN/1.73 = 18899) eGFR NON- AMER. (test 111 ML/MIN/1.73 code = 43781) CALC BUN/CREAT (test code = 17 RATIO 2235) SODIUM (test code = 2231) 142 MEQ/L POTASSIUM (test code = 2228) 4.4 MEQ/L CHLORIDE (test code = 2215) 102 MEQ/L CARBON DIOXIDE (test code = 22 MEQ/L 2205) CALCIUM (test code = 2209) 9.1 MG/DL PROTEIN, TOTAL (test code = 7.1 G/DL 2228) ALBUMIN (test code = 2201) 4.2 G/DL CALC GLOBULIN (test code = 2.9 G/DL 2239) CALC A/G RATIO (test code = 1.4 RATIO 223) BILIRUBIN, TOTAL (test code = 0.6 MG/DL 2206) ALKALINE PHOSPHATASE (test 84 U/L code = 2204) AST (test code = 2218) 22 U/L ALT (test code = 2219) 21 U/L LIPID [id number] 00:00:00 Test Item Value Reference Range Interpretation Comments CHOLESTEROL (test code = 2210) 219 MG/DL TRIGLYCERIDES (test code = 2232) 151 MG/DL HDL CHOLESTEROL (test code = 2220) 55 MG/DL CALC LDL CHOL (test code = 2237) 134 MG/DL RISK RATIO LDL/HDL (test code = 2.43 RATIO 2238) THYROID II PROFILE (T3U, T4, T7, TSH)2016-08-26 00:00:00 Test Item Value Reference Range Interpretation Comments T3 UPTAKE (test code = 2817) 30.0 % T4 (THYROXINE) (test code = 2819) 5.5 UG/DL CALCULATED T7 (FTI) (test code = 1.65 2820) TSH (test code = 2821) 2.46 UIU/ML HEMOGLOBIN [id number] 00:00:00 Test Item Value Reference Range Interpretation Comments HEMOGLOBIN A1c (test code = 12441) 5.4 % HEMOGLOBIN [id number] 00:00:00 Test Item Value Reference Range Interpretation Comments HEMOGLOBIN A1c (test code = 38862) 5.4 % CBC W/AUTO [id number] 00:00:00 Test Item Value Reference Range Interpretation Comments WBC (test code = 1001) 6.2 K/UL RBC (test code = 1002) 4.97 M/UL HEMOGLOBIN (test code = 1003) 15.0 G/DL HEMATOCRIT (test code = 1004) 43.8 % MCV (test code = 1005) 88.1 fL MCH (test code = 1006) 30.2 PG MCHC (test code = 1007) 34.2 G/DL RDW (test code = 1038) 13.3 % NEUTROPHILS (test code = 1008) 61.1 % LYMPHOCYTES (test code = 1010) 29.4 % MONOCYTES (test code = 1011) 6.7 % EOSINOPHILS (test code = 1012) 2.0 % BASOPHILS (test code = 1013) 0.8 % PLATELET COUNT (test code = 1015) 229 K/UL CBC W/AUTO [id number] 00:00:00 Test Item Value Reference Range Interpretation Comments WBC (test code = 1001) 6.2 K/UL RBC (test code = 1002) 4.97 M/UL HEMOGLOBIN (test code = 1003) 15.0 G/DL HEMATOCRIT (test code = 1004) 43.8 % MCV (test code = 1005) 88.1 fL MCH (test code = 1006) 30.2 PG MCHC (test code = 1007) 34.2 G/DL RDW (test code = 1038) 13.3 % NEUTROPHILS (test code = 1008) 61.1 % LYMPHOCYTES (test code = 1010) 29.4 % MONOCYTES (test code = 1011) 6.7 % EOSINOPHILS (test code = 1012) 2.0 % BASOPHILS (test code = 1013) 0.8 % PLATELET COUNT (test code = 1015) 229 K/UL COMPREHENSIVE METABOLIC [id number] 00:00:00 Test Item Value Reference Range Interpretation Comments GLUCOSE (test code = 2217) 91 MG/DL BUN (test code = 2208) 9 MG/DL CREATININE (test code = 2214) 0.52 MG/DL eGFR AMER. (test code 129 ML/MIN/1.73 = 23562) eGFR NON- AMER. (test 111 ML/MIN/1.73 code = 54477) CALC BUN/CREAT (test code = 17 RATIO 2235) SODIUM (test code = 2231) 142 MEQ/L POTASSIUM (test code = 2228) 4.4 MEQ/L CHLORIDE (test code = 2215) 102 MEQ/L CARBON DIOXIDE (test code = 22 MEQ/L 2206) CALCIUM (test code = 2209) 9.1 MG/DL PROTEIN, TOTAL (test code = 7.1 G/DL 2228) ALBUMIN (test code = 2201) 4.2 G/DL CALC GLOBULIN (test code = 2.9 G/DL 0) CALC A/G RATIO (test code = 1.4 RATIO 2234) BILIRUBIN, TOTAL (test code = 0.6 MG/DL 2206) ALKALINE PHOSPHATASE (test 84 U/L code = 2204) AST (test code = 2218) 22 U/L ALT (test code = 2219) 21 U/L LIPID [id number] 00:00:00 Test Item Value Reference Range Interpretation Comments CHOLESTEROL (test code = 2210) 219 MG/DL TRIGLYCERIDES (test code = 2232) 151 MG/DL HDL CHOLESTEROL (test code = 2220) 55 MG/DL CALC LDL CHOL (test code = 2237) 134 MG/DL RISK RATIO LDL/HDL (test code = 2.43 RATIO 2238) THYROID II PROFILE (T3U, T4, T7, TSH)[id number] 00:00:00 Test Item Value Reference Range Interpretation Comments T3 UPTAKE (test code = 2817) 30.0 % T4 (THYROXINE) (test code = 2819) 5.5 UG/DL CALCULATED T7 (FTI) (test code = 1.65 2820) TSH (test code = 2821) 2.46 UIU/ML HEMOGLOBIN [id number] 00:00:00 Test Item Value Reference Range Interpretation Comments HEMOGLOBIN A1c (test code = 56599) 5.4 % HEMOGLOBIN [id number] 00:00:00 Test Item Value Reference Range Interpretation Comments HEMOGLOBIN A1c (test code = 10800) 5.4 % HEMOGLOBIN [id number] 00:00:00 Test Item Value Reference Range Interpretation Comments HEMOGLOBIN A1c (test code = 59912) 5.4 % CBC W/AUTO [id number] 00:00:00 Test Item Value Reference Range Interpretation Comments WBC (test code = 1001) 6.2 K/UL RBC (test code = 1002) 4.97 M/UL HEMOGLOBIN (test code = 1003) 15.0 G/DL HEMATOCRIT (test code = 1004) 43.8 % MCV (test code = 1005) 88.1 fL MCH (test code = 1006) 30.2 PG MCHC (test code = 1007) 34.2 G/DL RDW (test code = 1038) 13.3 % NEUTROPHILS (test code = 1008) 61.1 % LYMPHOCYTES (test code = 1010) 29.4 % MONOCYTES (test code = 1011) 6.7 % EOSINOPHILS (test code = 1012) 2.0 % BASOPHILS (test code = 1013) 0.8 % PLATELET COUNT (test code = 1015) 229 K/UL CBC W/AUTO [id number] 00:00:00 Test Item Value Reference Range Interpretation Comments WBC (test code = 1001) 6.2 K/UL RBC (test code = 1002) 4.97 M/UL HEMOGLOBIN (test code = 1003) 15.0 G/DL HEMATOCRIT (test code = 1004) 43.8 % MCV (test code = 1005) 88.1 fL MCH (test code = 1006) 30.2 PG MCHC (test code = 1007) 34.2 G/DL RDW (test code = 1038) 13.3 % NEUTROPHILS (test code = 1008) 61.1 % LYMPHOCYTES (test code = 1010) 29.4 % MONOCYTES (test code = 1011) 6.7 % EOSINOPHILS (test code = 1012) 2.0 % BASOPHILS (test code = 1013) 0.8 % PLATELET COUNT (test code = 1015) 229 K/UL CBC W/AUTO [id number] 00:00:00 Test Item Value Reference Range Interpretation Comments WBC (test code = 1001) 6.2 K/UL RBC (test code = 1002) 4.97 M/UL HEMOGLOBIN (test code = 1003) 15.0 G/DL HEMATOCRIT (test code = 1004) 43.8 % MCV (test code = 1005) 88.1 fL MCH (test code = 1006) 30.2 PG MCHC (test code = 1007) 34.2 G/DL RDW (test code = 1038) 13.3 % NEUTROPHILS (test code = 1008) 61.1 % LYMPHOCYTES (test code = 1010) 29.4 % MONOCYTES (test code = 1011) 6.7 % EOSINOPHILS (test code = 1012) 2.0 % BASOPHILS (test code = 1013) 0.8 % PLATELET COUNT (test code = 1015) 229 K/UL COMPREHENSIVE METABOLIC [id number] 00:00:00 Test Item Value Reference Range Interpretation Comments GLUCOSE (test code = 2217) 91 MG/DL BUN (test code = 2208) 9 MG/DL CREATININE (test code = 2214) 0.52 MG/DL eGFR AMER. (test code 129 ML/MIN/1.73 = 93313) eGFR NON- AMER. (test 111 ML/MIN/1.73 code = 62362) CALC BUN/CREAT (test code = 17 RATIO 2235) SODIUM (test code = 2231) 142 MEQ/L POTASSIUM (test code = 2228) 4.4 MEQ/L CHLORIDE (test code = 2215) 102 MEQ/L CARBON DIOXIDE (test code = 22 MEQ/L 220) CALCIUM (test code = 2209) 9.1 MG/DL PROTEIN, TOTAL (test code = 7.1 G/DL 2228) ALBUMIN (test code = 2201) 4.2 G/DL CALC GLOBULIN (test code = 2.9 G/DL 2240) CALC A/G RATIO (test code = 1.4 RATIO 2234) BILIRUBIN, TOTAL (test code = 0.6 MG/DL 2206) ALKALINE PHOSPHATASE (test 84 U/L code = 2204) AST (test code = 2218) 22 U/L ALT (test code = 2219) 21 U/L COMPREHENSIVE METABOLIC [id number] 00:00:00 Test Item Value Reference Range Interpretation Comments GLUCOSE (test code = 2217) 91 MG/DL BUN (test code = 2208) 9 MG/DL CREATININE (test code = 2214) 0.52 MG/DL eGFR AMER. (test code 129 ML/MIN/1.73 = 38823) eGFR NON- AMER. (test 111 ML/MIN/1.73 code = 20308) CALC BUN/CREAT (test code = 17 RATIO 2235) SODIUM (test code = 2231) 142 MEQ/L POTASSIUM (test code = 2228) 4.4 MEQ/L CHLORIDE (test code = 2215) 102 MEQ/L CARBON DIOXIDE (test code = 22 MEQ/L 2206) CALCIUM (test code = 2209) 9.1 MG/DL PROTEIN, TOTAL (test code = 7.1 G/DL 222) ALBUMIN (test code = 2201) 4.2 G/DL CALC GLOBULIN (test code = 2.9 G/DL 2240) CALC A/G RATIO (test code = 1.4 RATIO 2234) BILIRUBIN, TOTAL (test code = 0.6 MG/DL 2207) ALKALINE PHOSPHATASE (test 84 U/L code = 2204) AST (test code = 2218) 22 U/L ALT (test code = 2219) 21 U/L COMPREHENSIVE METABOLIC [id number] 00:00:00 Test Item Value Reference Range Interpretation Comments GLUCOSE (test code = 2217) 87 MG/DL BUN (test code = 2208) 11 MG/DL CREATININE (test code = 2214) 0.58 MG/DL eGFR AMER. (test code 125 ML/MIN/1.73 = 65922) eGFR NON- AMER. (test 107 ML/MIN/1.73 code = 08791) CALCULATED BUN/CREAT (test 19 RATIO code = 2235) SODIUM (test code = 2231) 141 MEQ/L POTASSIUM (test code = 2228) 4.3 MEQ/L CHLORIDE (test code = 2215) 105 MEQ/L CARBON DIOXIDE (test code = 26 MEQ/L 2205) CALCIUM (test code = 2209) 9.3 MG/DL PROTEIN, TOTAL (test code = 6.9 G/DL 9) ALBUMIN (test code = 2201) 3.9 G/DL CALCULATED GLOBULIN (test 3.0 G/DL code = 2240) CALCULATED A/G RATIO (test 1.3 RATIO code = 2234) BILIRUBIN, TOTAL (test code = 0.4 MG/DL 7) ALKALINE PHOSPHATASE (test 70 U/L code = 2204) SGOT (AST) (test code = 2218) 16 U/L SGPT (ALT) (test code = 2219) 18 U/L COMPREHENSIVE METABOLIC [id number] 00:00:00 Test Item Value Reference Range Interpretation Comments GLUCOSE (test code = 2217) 87 MG/DL BUN (test code = 2208) 11 MG/DL CREATININE (test code = 2214) 0.58 MG/DL eGFR AMER. (test code 125 ML/MIN/1.73 = 52077) eGFR NON- AMER. (test 107 ML/MIN/1.73 code = 25056) CALCULATED BUN/CREAT (test 19 RATIO code = 2235) SODIUM (test code = 2231) 141 MEQ/L POTASSIUM (test code = 2228) 4.3 MEQ/L CHLORIDE (test code = 2215) 105 MEQ/L CARBON DIOXIDE (test code = 26 MEQ/L 2205) CALCIUM (test code = 2209) 9.3 MG/DL PROTEIN, TOTAL (test code = 6.9 G/DL 2228) ALBUMIN (test code = 2201) 3.9 G/DL CALCULATED GLOBULIN (test 3.0 G/DL code = 2240) CALCULATED A/G RATIO (test 1.3 RATIO code = 2234) BILIRUBIN, TOTAL (test code = 0.4 MG/DL 2206) ALKALINE PHOSPHATASE (test 70 U/L code = 220) SGOT (AST) (test code = 2218) 16 U/L SGPT (ALT) (test code = 2219) 18 U/L LIPID [id number] 00:00:00 Test Item Value Reference Range Interpretation Comments CHOLESTEROL (test code = 2210) 210 MG/DL TRIGLYCERIDES (test code = 2232) 121 MG/DL HDL CHOLESTEROL (test code = 2220) 50 MG/DL CALCULATED LDL CHOL (test code = 136 MG/DL 2236) RISK RATIO LDL/HDL (test code = 2.72 RATIO 2238) LIPID [id number] 00:00:00 Test Item Value Reference Range Interpretation Comments CHOLESTEROL (test code = 2210) 210 MG/DL TRIGLYCERIDES (test code = 2232) 121 MG/DL HDL CHOLESTEROL (test code = 2220) 50 MG/DL CALCULATED LDL CHOL (test code = 136 MG/DL 7) RISK RATIO LDL/HDL (test code = 2.72 RATIO 2238) COMPREHENSIVE METABOLIC [id number] 00:00:00 Test Item Value Reference Range Interpretation Comments GLUCOSE (test code = 2217) 87 MG/DL BUN (test code = 2208) 11 MG/DL CREATININE (test code = 2214) 0.58 MG/DL eGFR AMER. (test code 125 ML/MIN/1.73 = 52956) eGFR NON- AMER. (test 107 ML/MIN/1.73 code = 04919) CALCULATED BUN/CREAT (test 19 RATIO code = 2235) SODIUM (test code = 2231) 141 MEQ/L POTASSIUM (test code = 2228) 4.3 MEQ/L CHLORIDE (test code = 2215) 105 MEQ/L CARBON DIOXIDE (test code = 26 MEQ/L 220) CALCIUM (test code = 2209) 9.3 MG/DL PROTEIN, TOTAL (test code = 6.9 G/DL 2228) ALBUMIN (test code = 2201) 3.9 G/DL CALCULATED GLOBULIN (test 3.0 G/DL code = 2240) CALCULATED A/G RATIO (test 1.3 RATIO code = 2234) BILIRUBIN, TOTAL (test code = 0.4 MG/DL 2206) ALKALINE PHOSPHATASE (test 70 U/L code = 2204) SGOT (AST) (test code = 2218) 16 U/L SGPT (ALT) (test code = 2219) 18 U/L COMPREHENSIVE METABOLIC [id number] 00:00:00 Test Item Value Reference Range Interpretation Comments GLUCOSE (test code = 2217) 87 MG/DL BUN (test code = 2208) 11 MG/DL CREATININE (test code = 2214) 0.58 MG/DL eGFR AMER. (test code 125 ML/MIN/1.73 = 77691) eGFR NON- AMER. (test 107 ML/MIN/1.73 code = 43890) CALCULATED BUN/CREAT (test 19 RATIO code = 2235) SODIUM (test code = 2231) 141 MEQ/L POTASSIUM (test code = 2228) 4.3 MEQ/L CHLORIDE (test code = 2215) 105 MEQ/L CARBON DIOXIDE (test code = 26 MEQ/L 2205) CALCIUM (test code = 2209) 9.3 MG/DL PROTEIN, TOTAL (test code = 6.9 G/DL 2228) ALBUMIN (test code = 2201) 3.9 G/DL CALCULATED GLOBULIN (test 3.0 G/DL code = 2240) CALCULATED A/G RATIO (test 1.3 RATIO code = 2234) BILIRUBIN, TOTAL (test code = 0.4 MG/DL 2206) ALKALINE PHOSPHATASE (test 70 U/L code = 2204) SGOT (AST) (test code = 2218) 16 U/L SGPT (ALT) (test code = 2219) 18 U/L COMPREHENSIVE METABOLIC [id number] 00:00:00 Test Item Value Reference Range Interpretation Comments GLUCOSE (test code = 2217) 87 MG/DL BUN (test code = 2208) 11 MG/DL CREATININE (test code = 2214) 0.58 MG/DL eGFR AMER. (test code 125 ML/MIN/1.73 = 36355) eGFR NON- AMER. (test 107 ML/MIN/1.73 code = 03430) CALCULATED BUN/CREAT (test 19 RATIO code = 2235) SODIUM (test code = 2231) 141 MEQ/L POTASSIUM (test code = 2228) 4.3 MEQ/L CHLORIDE (test code = 2215) 105 MEQ/L CARBON DIOXIDE (test code = 26 MEQ/L 2205) CALCIUM (test code = 2209) 9.3 MG/DL PROTEIN, TOTAL (test code = 6.9 G/DL 2228) ALBUMIN (test code = 2201) 3.9 G/DL CALCULATED GLOBULIN (test 3.0 G/DL code = 2240) CALCULATED A/G RATIO (test 1.3 RATIO code = 2234) BILIRUBIN, TOTAL (test code = 0.4 MG/DL 2206) ALKALINE PHOSPHATASE (test 70 U/L code = 2204) SGOT (AST) (test code = 2218) 16 U/L SGPT (ALT) (test code = 2219) 18 U/L LIPID [id number] 00:00:00 Test Item Value Reference Range Interpretation Comments CHOLESTEROL (test code = 2210) 210 MG/DL TRIGLYCERIDES (test code = 2232) 121 MG/DL HDL CHOLESTEROL (test code = 2220) 50 MG/DL CALCULATED LDL CHOL (test code = 136 MG/DL 2237) RISK RATIO LDL/HDL (test code = 2.72 RATIO 2238) LIPID [id number] 00:00:00 Test Item Value Reference Range Interpretation Comments CHOLESTEROL (test code = 2210) 210 MG/DL TRIGLYCERIDES (test code = 2232) 121 MG/DL HDL CHOLESTEROL (test code = 2220) 50 MG/DL CALCULATED LDL CHOL (test code = 136 MG/DL 2237) RISK RATIO LDL/HDL (test code = 2.72 RATIO 2238) LIPID [id number] 00:00:00 Test Item Value Reference Range Interpretation Comments CHOLESTEROL (test code = 2210) 210 MG/DL TRIGLYCERIDES (test code = 2232) 121 MG/DL HDL CHOLESTEROL (test code = 2220) 50 MG/DL CALCULATED LDL CHOL (test code = 136 MG/DL 2237) RISK RATIO LDL/HDL (test code = 2.72 RATIO 2238) COMPREHENSIVE METABOLIC [id number] 00:00:00 Test Item Value Reference Range Interpretation Comments GLUCOSE (test code = 2217) 87 MG/DL BUN (test code = 2208) 11 MG/DL CREATININE (test code = 2214) 0.58 MG/DL eGFR AMER. (test code 125 ML/MIN/1.73 = 64655) eGFR NON- AMER. (test 107 ML/MIN/1.73 code = 39888) CALCULATED BUN/CREAT (test 19 RATIO code = 2235) SODIUM (test code = 2231) 141 MEQ/L POTASSIUM (test code = 2228) 4.3 MEQ/L CHLORIDE (test code = 2215) 105 MEQ/L CARBON DIOXIDE (test code = 26 MEQ/L 2205) CALCIUM (test code = 2209) 9.3 MG/DL PROTEIN, TOTAL (test code = 6.9 G/DL 2228) ALBUMIN (test code = 2201) 3.9 G/DL CALCULATED GLOBULIN (test 3.0 G/DL code = 2240) CALCULATED A/G RATIO (test 1.3 RATIO code = 2234) BILIRUBIN, TOTAL (test code = 0.4 MG/DL 2206) ALKALINE PHOSPHATASE (test 70 U/L code = 2204) SGOT (AST) (test code = 2218) 16 U/L SGPT (ALT) (test code = 2219) 18 U/L LIPID [id number] 00:00:00 Test Item Value Reference Range Interpretation Comments CHOLESTEROL (test code = 2210) 210 MG/DL TRIGLYCERIDES (test code = 2232) 121 MG/DL HDL CHOLESTEROL (test code = 2220) 50 MG/DL CALCULATED LDL CHOL (test code = 136 MG/DL 2236) RISK RATIO LDL/HDL (test code = 2.72 RATIO 2238) COMPREHENSIVE METABOLIC [id number] 00:00:00 Test Item Value Reference Range Interpretation Comments GLUCOSE (test code = 2217) 87 MG/DL BUN (test code = 2208) 11 MG/DL CREATININE (test code = 2214) 0.58 MG/DL eGFR AMER. (test code 125 ML/MIN/1.73 = 26526) eGFR NON- AMER. (test 107 ML/MIN/1.73 code = 70862) CALCULATED BUN/CREAT (test 19 RATIO code = 2235) SODIUM (test code = 2231) 141 MEQ/L POTASSIUM (test code = 2228) 4.3 MEQ/L CHLORIDE (test code = 2215) 105 MEQ/L CARBON DIOXIDE (test code = 26 MEQ/L 2206) CALCIUM (test code = 2209) 9.3 MG/DL PROTEIN, TOTAL (test code = 6.9 G/DL 2228) ALBUMIN (test code = 2201) 3.9 G/DL CALCULATED GLOBULIN (test 3.0 G/DL code = 2240) CALCULATED A/G RATIO (test 1.3 RATIO code = 2234) BILIRUBIN, TOTAL (test code = 0.4 MG/DL 2206) ALKALINE PHOSPHATASE (test 70 U/L code = 220) SGOT (AST) (test code = 2218) 16 U/L SGPT (ALT) (test code = 221) 18 U/L LIPID [id number] 00:00:00 Test Item Value Reference Range Interpretation Comments CHOLESTEROL (test code = 2210) 210 MG/DL TRIGLYCERIDES (test code = 2232) 121 MG/DL HDL CHOLESTEROL (test code = 2220) 50 MG/DL CALCULATED LDL CHOL (test code = 136 MG/DL 2236) RISK RATIO LDL/HDL (test code = 2.72 RATIO 2238) COMPREHENSIVE METABOLIC [id number] 00:00:00 Test Item Value Reference Range Interpretation Comments GLUCOSE (test code = 2217) 87 MG/DL BUN (test code = 2208) 11 MG/DL CREATININE (test code = 2214) 0.58 MG/DL eGFR AMER. (test code 125 ML/MIN/1.73 = 95825) eGFR NON- AMER. (test 107 ML/MIN/1.73 code = 22525) CALCULATED BUN/CREAT (test 19 RATIO code = 2235) SODIUM (test code = 2231) 141 MEQ/L POTASSIUM (test code = 2228) 4.3 MEQ/L CHLORIDE (test code = 2215) 105 MEQ/L CARBON DIOXIDE (test code = 26 MEQ/L 220) CALCIUM (test code = 2209) 9.3 MG/DL PROTEIN, TOTAL (test code = 6.9 G/DL 2229) ALBUMIN (test code = 2201) 3.9 G/DL CALCULATED GLOBULIN (test 3.0 G/DL code = 2240) CALCULATED A/G RATIO (test 1.3 RATIO code = 2234) BILIRUBIN, TOTAL (test code = 0.4 MG/DL 2206) ALKALINE PHOSPHATASE (test 70 U/L code = 2204) SGOT (AST) (test code = 2218) 16 U/L SGPT (ALT) (test code = 2219) 18 U/L COMPREHENSIVE METABOLIC [id number] 00:00:00 Test Item Value Reference Range Interpretation Comments GLUCOSE (test code = 2217) 87 MG/DL BUN (test code = 2208) 11 MG/DL CREATININE (test code = 2214) 0.58 MG/DL eGFR AMER. (test code 125 ML/MIN/1.73 = 88455) eGFR NON- AMER. (test 107 ML/MIN/1.73 code = 97543) CALCULATED BUN/CREAT (test 19 RATIO code = 2235) SODIUM (test code = 2231) 141 MEQ/L POTASSIUM (test code = 2228) 4.3 MEQ/L CHLORIDE (test code = 2215) 105 MEQ/L CARBON DIOXIDE (test code = 26 MEQ/L 2205) CALCIUM (test code = 2209) 9.3 MG/DL PROTEIN, TOTAL (test code = 6.9 G/DL 2228) ALBUMIN (test code = 2201) 3.9 G/DL CALCULATED GLOBULIN (test 3.0 G/DL code = 2240) CALCULATED A/G RATIO (test 1.3 RATIO code = 2234) BILIRUBIN, TOTAL (test code = 0.4 MG/DL 2206) ALKALINE PHOSPHATASE (test 70 U/L code = 2204) SGOT (AST) (test code = 2218) 16 U/L SGPT (ALT) (test code = 2219) 18 U/L LIPID [id number] 00:00:00 Test Item Value Reference Range Interpretation Comments CHOLESTEROL (test code = 2210) 210 MG/DL TRIGLYCERIDES (test code = 2232) 121 MG/DL HDL CHOLESTEROL (test code = 2220) 50 MG/DL CALCULATED LDL CHOL (test code = 136 MG/DL 2236) RISK RATIO LDL/HDL (test code = 2.72 RATIO 223) LIPID [id number] 00:00:00 Test Item Value Reference Range Interpretation Comments CHOLESTEROL (test code = 2210) 210 MG/DL TRIGLYCERIDES (test code = 2232) 121 MG/DL HDL CHOLESTEROL (test code = 2220) 50 MG/DL CALCULATED LDL CHOL (test code = 136 MG/DL 2236) RISK RATIO LDL/HDL (test code = 2.72 RATIO 8) CBC W/AUTO [id number] 00:00:00 Test Item Value Reference Range Interpretation Comments WBC (test code = 1001) 6.3 K/UL RBC (test code = 1002) 4.89 M/UL HEMOGLOBIN (test code = 1003) 15.2 G/DL HEMATOCRIT (test code = 1004) 44.6 % MCV (test code = 1005) 91.2 fL MCH (test code = 1006) 31.1 PG MCHC (test code = 1007) 34.1 G/DL RDW (test code = 1038) 13.9 % NEUTROPHILS (test code = 1008) 61 % LYMPHOCYTES (test code = 1010) 29 % MONOCYTES (test code = 1011) 7 % EOSINOPHILS (test code = 1012) 2 % BASOPHILS (test code = 1013) 1 % PLATELET COUNT (test code = 1015) 223 K/UL CBC W/AUTO [id number] 00:00:00 Test Item Value Reference Range Interpretation Comments WBC (test code = 1001) 6.3 K/UL RBC (test code = 1002) 4.89 M/UL HEMOGLOBIN (test code = 1003) 15.2 G/DL HEMATOCRIT (test code = 1004) 44.6 % MCV (test code = 1005) 91.2 fL MCH (test code = 1006) 31.1 PG MCHC (test code = 1007) 34.1 G/DL RDW (test code = 1038) 13.9 % NEUTROPHILS (test code = 1008) 61 % LYMPHOCYTES (test code = 1010) 29 % MONOCYTES (test code = 1011) 7 % EOSINOPHILS (test code = 1012) 2 % BASOPHILS (test code = 1013) 1 % PLATELET COUNT (test code = 1015) 223 K/UL CBC W/AUTO [id number] 00:00:00 Test Item Value Reference Range Interpretation Comments WBC (test code = 1001) 6.3 K/UL RBC (test code = 1002) 4.89 M/UL HEMOGLOBIN (test code = 1003) 15.2 G/DL HEMATOCRIT (test code = 1004) 44.6 % MCV (test code = 1005) 91.2 fL MCH (test code = 1006) 31.1 PG MCHC (test code = 1007) 34.1 G/DL RDW (test code = 1038) 13.9 % NEUTROPHILS (test code = 1008) 61 % LYMPHOCYTES (test code = 1010) 29 % MONOCYTES (test code = 1011) 7 % EOSINOPHILS (test code = 1012) 2 % BASOPHILS (test code = 1013) 1 % PLATELET COUNT (test code = 1015) 223 K/UL HEMOGLOBIN [id number] 00:00:00 Test Item Value Reference Range Interpretation Comments HEMOGLOBIN A1c (test code = 46460) 5.5 % HEMOGLOBIN [id number] 00:00:00 Test Item Value Reference Range Interpretation Comments HEMOGLOBIN A1c (test code = 78112) 5.5 % HEMOGLOBIN [id number] 00:00:00 Test Item Value Reference Range Interpretation Comments HEMOGLOBIN A1c (test code = 49911) 5.5 % [id number] 00:00:00 Test Item Value Reference Range Interpretation Comments TSH (test code = 2821) 1.8 UIU/ML [id number] 00:00:00 Test Item Value Reference Range Interpretation Comments TSH (test code = 2821) 1.8 UIU/ML [id number] 00:00:00 Test Item Value Reference Range Interpretation Comments TSH (test code = 2821) 1.8 UIU/ML COMPREHENSIVE METABOLIC [id number] 00:00:00 Test Item Value Reference Range Interpretation Comments GLUCOSE (test code = 2217) 68 MG/DL BUN (test code = 2208) 11 MG/DL CREATININE (test code = 2214) 0.5 MG/DL eGFR AMER. (test code 159 ML/MIN/1.73 = 88662) eGFR NON- AMER. (test 131 ML/MIN/1.73 code = 77842) CALCULATED BUN/CREAT (test 22 RATIO code = 2235) SODIUM (test code = 2231) 139 MEQ/L POTASSIUM (test code = 2228) 4.5 MEQ/L CHLORIDE (test code = 2215) 105 MEQ/L CARBON DIOXIDE (test code = 25 MEQ/L 2205) CALCIUM (test code = 2209) 9.4 MG/DL PROTEIN, TOTAL (test code = 7.0 G/DL 2228) ALBUMIN (test code = 2201) 4.1 G/DL CALCULATED GLOBULIN (test 2.9 G/DL code = 2240) CALCULATED A/G RATIO (test 1.4 RATIO code = 2234) BILIRUBIN, TOTAL (test code = 0.6 MG/DL 2206) ALKALINE PHOSPHATASE (test 63 U/L code = 2204) SGOT (AST) (test code = 2218) 18 U/L SGPT (ALT) (test code = 2219) 19 U/L COMPREHENSIVE METABOLIC [id number] 00:00:00 Test Item Value Reference Range Interpretation Comments GLUCOSE (test code = 2217) 68 MG/DL BUN (test code = 2208) 11 MG/DL CREATININE (test code = 2214) 0.5 MG/DL eGFR AMER. (test code 159 ML/MIN/1.73 = 83649) eGFR NON- AMER. (test 131 ML/MIN/1.73 code = 17604) CALCULATED BUN/CREAT (test 22 RATIO code = 2235) SODIUM (test code = 2231) 139 MEQ/L POTASSIUM (test code = 2228) 4.5 MEQ/L CHLORIDE (test code = 2215) 105 MEQ/L CARBON DIOXIDE (test code = 25 MEQ/L 2205) CALCIUM (test code = 2209) 9.4 MG/DL PROTEIN, TOTAL (test code = 7.0 G/DL 2228) ALBUMIN (test code = 2201) 4.1 G/DL CALCULATED GLOBULIN (test 2.9 G/DL code = 2240) CALCULATED A/G RATIO (test 1.4 RATIO code = 2234) BILIRUBIN, TOTAL (test code = 0.6 MG/DL 2206) ALKALINE PHOSPHATASE (test 63 U/L code = 2204) SGOT (AST) (test code = 2218) 18 U/L SGPT (ALT) (test code = 2219) 19 U/L LIPID [id number] 00:00:00 Test Item Value Reference Range Interpretation Comments CHOLESTEROL (test code = 2210) 219 MG/DL TRIGLYCERIDES (test code = 2232) 176 MG/DL HDL CHOLESTEROL (test code = 2220) 53 MG/DL CALCULATED LDL CHOL (test code = 131 MG/DL 2237) RISK RATIO LDL/HDL (test code = 2.47 RATIO 2238) LIPID [id number] 00:00:00 Test Item Value Reference Range Interpretation Comments CHOLESTEROL (test code = 2210) 219 MG/DL TRIGLYCERIDES (test code = 2232) 176 MG/DL HDL CHOLESTEROL (test code = 2220) 53 MG/DL CALCULATED LDL CHOL (test code = 131 MG/DL 2237) RISK RATIO LDL/HDL (test code = 2.47 RATIO 2238) CBC W/AUTO [id number] 00:00:00 Test Item Value Reference Range Interpretation Comments WBC (test code = 1001) 6.3 K/UL RBC (test code = 1002) 4.89 M/UL HEMOGLOBIN (test code = 1003) 15.2 G/DL HEMATOCRIT (test code = 1004) 44.6 % MCV (test code = 1005) 91.2 fL MCH (test code = 1006) 31.1 PG MCHC (test code = 1007) 34.1 G/DL RDW (test code = 1038) 13.9 % NEUTROPHILS (test code = 1008) 61 % LYMPHOCYTES (test code = 1010) 29 % MONOCYTES (test code = 1011) 7 % EOSINOPHILS (test code = 1012) 2 % BASOPHILS (test code = 1013) 1 % PLATELET COUNT (test code = 1015) 223 K/UL CBC W/AUTO [id number] 00:00:00 Test Item Value Reference Range Interpretation Comments WBC (test code = 1001) 6.3 K/UL RBC (test code = 1002) 4.89 M/UL HEMOGLOBIN (test code = 1003) 15.2 G/DL HEMATOCRIT (test code = 1004) 44.6 % MCV (test code = 1005) 91.2 fL MCH (test code = 1006) 31.1 PG MCHC (test code = 1007) 34.1 G/DL RDW (test code = 1038) 13.9 % NEUTROPHILS (test code = 1008) 61 % LYMPHOCYTES (test code = 1010) 29 % MONOCYTES (test code = 1011) 7 % EOSINOPHILS (test code = 1012) 2 % BASOPHILS (test code = 1013) 1 % PLATELET COUNT (test code = 1015) 223 K/UL CBC W/AUTO [id number] 00:00:00 Test Item Value Reference Range Interpretation Comments WBC (test code = 1001) 6.3 K/UL RBC (test code = 1002) 4.89 M/UL HEMOGLOBIN (test code = 1003) 15.2 G/DL HEMATOCRIT (test code = 1004) 44.6 % MCV (test code = 1005) 91.2 fL MCH (test code = 1006) 31.1 PG MCHC (test code = 1007) 34.1 G/DL RDW (test code = 1038) 13.9 % NEUTROPHILS (test code = 1008) 61 % LYMPHOCYTES (test code = 1010) 29 % MONOCYTES (test code = 1011) 7 % EOSINOPHILS (test code = 1012) 2 % BASOPHILS (test code = 1013) 1 % PLATELET COUNT (test code = 1015) 223 K/UL HEMOGLOBIN [id number] 00:00:00 Test Item Value Reference Range Interpretation Comments HEMOGLOBIN A1c (test code = 42137) 5.5 % HEMOGLOBIN [id number] 00:00:00 Test Item Value Reference Range Interpretation Comments HEMOGLOBIN A1c (test code = 79436) 5.5 % HEMOGLOBIN [id number] 00:00:00 Test Item Value Reference Range Interpretation Comments HEMOGLOBIN A1c (test code = 15879) 5.5 % [id number] 00:00:00 Test Item Value Reference Range Interpretation Comments TSH (test code = 2821) 1.8 UIU/ML [id number] 00:00:00 Test Item Value Reference Range Interpretation Comments TSH (test code = 2821) 1.8 UIU/ML [id number] 00:00:00 Test Item Value Reference Range Interpretation Comments TSH (test code = 2821) 1.8 UIU/ML COMPREHENSIVE METABOLIC [id number] 00:00:00 Test Item Value Reference Range Interpretation Comments GLUCOSE (test code = 2217) 68 MG/DL BUN (test code = 2208) 11 MG/DL CREATININE (test code = 2214) 0.5 MG/DL eGFR AMER. (test code 159 ML/MIN/1.73 = 51110) eGFR NON- AMER. (test 131 ML/MIN/1.73 code = 23699) CALCULATED BUN/CREAT (test 22 RATIO code = 2235) SODIUM (test code = 2231) 139 MEQ/L POTASSIUM (test code = 2228) 4.5 MEQ/L CHLORIDE (test code = 2215) 105 MEQ/L CARBON DIOXIDE (test code = 25 MEQ/L 2205) CALCIUM (test code = 2209) 9.4 MG/DL PROTEIN, TOTAL (test code = 7.0 G/DL 2228) ALBUMIN (test code = 2201) 4.1 G/DL CALCULATED GLOBULIN (test 2.9 G/DL code = 2240) CALCULATED A/G RATIO (test 1.4 RATIO code = 2234) BILIRUBIN, TOTAL (test code = 0.6 MG/DL 2206) ALKALINE PHOSPHATASE (test 63 U/L code = 2204) SGOT (AST) (test code = 2218) 18 U/L SGPT (ALT) (test code = 2219) 19 U/L COMPREHENSIVE METABOLIC [id number] 00:00:00 Test Item Value Reference Range Interpretation Comments GLUCOSE (test code = 2217) 68 MG/DL BUN (test code = 2208) 11 MG/DL CREATININE (test code = 2214) 0.5 MG/DL eGFR AMER. (test code 159 ML/MIN/1.73 = 31919) eGFR NON- AMER. (test 131 ML/MIN/1.73 code = 24506) CALCULATED BUN/CREAT (test 22 RATIO code = 2235) SODIUM (test code = 2231) 139 MEQ/L POTASSIUM (test code = 2228) 4.5 MEQ/L CHLORIDE (test code = 2215) 105 MEQ/L CARBON DIOXIDE (test code = 25 MEQ/L 2205) CALCIUM (test code = 2209) 9.4 MG/DL PROTEIN, TOTAL (test code = 7.0 G/DL 2228) ALBUMIN (test code = 2201) 4.1 G/DL CALCULATED GLOBULIN (test 2.9 G/DL code = 2240) CALCULATED A/G RATIO (test 1.4 RATIO code = 2234) BILIRUBIN, TOTAL (test code = 0.6 MG/DL 2206) ALKALINE PHOSPHATASE (test 63 U/L code = 2204) SGOT (AST) (test code = 2218) 18 U/L SGPT (ALT) (test code = 2219) 19 U/L COMPREHENSIVE METABOLIC [id number] 00:00:00 Test Item Value Reference Range Interpretation Comments GLUCOSE (test code = 2217) 68 MG/DL BUN (test code = 2208) 11 MG/DL CREATININE (test code = 2214) 0.5 MG/DL eGFR AMER. (test code 159 ML/MIN/1.73 = 17825) eGFR NON- AMER. (test 131 ML/MIN/1.73 code = 42957) CALCULATED BUN/CREAT (test 22 RATIO code = 2235) SODIUM (test code = 2231) 139 MEQ/L POTASSIUM (test code = 2228) 4.5 MEQ/L CHLORIDE (test code = 2215) 105 MEQ/L CARBON DIOXIDE (test code = 25 MEQ/L 2205) CALCIUM (test code = 2209) 9.4 MG/DL PROTEIN, TOTAL (test code = 7.0 G/DL 2228) ALBUMIN (test code = 2201) 4.1 G/DL CALCULATED GLOBULIN (test 2.9 G/DL code = 2240) CALCULATED A/G RATIO (test 1.4 RATIO code = 2234) BILIRUBIN, TOTAL (test code = 0.6 MG/DL 2206) ALKALINE PHOSPHATASE (test 63 U/L code = 2204) SGOT (AST) (test code = 2218) 18 U/L SGPT (ALT) (test code = 2219) 19 U/L LIPID [id number] 00:00:00 Test Item Value Reference Range Interpretation Comments CHOLESTEROL (test code = 2210) 219 MG/DL TRIGLYCERIDES (test code = 2232) 176 MG/DL HDL CHOLESTEROL (test code = 2220) 53 MG/DL CALCULATED LDL CHOL (test code = 131 MG/DL 7) RISK RATIO LDL/HDL (test code = 2.47 RATIO 2238) LIPID [id number] 00:00:00 Test Item Value Reference Range Interpretation Comments CHOLESTEROL (test code = 2210) 219 MG/DL TRIGLYCERIDES (test code = 2232) 176 MG/DL HDL CHOLESTEROL (test code = 2220) 53 MG/DL CALCULATED LDL CHOL (test code = 131 MG/DL 7) RISK RATIO LDL/HDL (test code = 2.47 RATIO 2238) CBC W/AUTO [id number] 00:00:00 Test Item Value Reference Range Interpretation Comments WBC (test code = 1001) 6.3 K/UL RBC (test code = 1002) 4.89 M/UL HEMOGLOBIN (test code = 1003) 15.2 G/DL HEMATOCRIT (test code = 1004) 44.6 % MCV (test code = 1005) 91.2 fL MCH (test code = 1006) 31.1 PG MCHC (test code = 1007) 34.1 G/DL RDW (test code = 1038) 13.9 % NEUTROPHILS (test code = 1008) 61 % LYMPHOCYTES (test code = 1010) 29 % MONOCYTES (test code = 1011) 7 % EOSINOPHILS (test code = 1012) 2 % BASOPHILS (test code = 1013) 1 % PLATELET COUNT (test code = 1015) 223 K/UL CBC W/AUTO [id number] 00:00:00 Test Item Value Reference Range Interpretation Comments WBC (test code = 1001) 6.3 K/UL RBC (test code = 1002) 4.89 M/UL HEMOGLOBIN (test code = 1003) 15.2 G/DL HEMATOCRIT (test code = 1004) 44.6 % MCV (test code = 1005) 91.2 fL MCH (test code = 1006) 31.1 PG MCHC (test code = 1007) 34.1 G/DL RDW (test code = 1038) 13.9 % NEUTROPHILS (test code = 1008) 61 % LYMPHOCYTES (test code = 1010) 29 % MONOCYTES (test code = 1011) 7 % EOSINOPHILS (test code = 1012) 2 % BASOPHILS (test code = 1013) 1 % PLATELET COUNT (test code = 1015) 223 K/UL CBC W/AUTO [id number] 00:00:00 Test Item Value Reference Range Interpretation Comments WBC (test code = 1001) 6.3 K/UL RBC (test code = 1002) 4.89 M/UL HEMOGLOBIN (test code = 1003) 15.2 G/DL HEMATOCRIT (test code = 1004) 44.6 % MCV (test code = 1005) 91.2 fL MCH (test code = 1006) 31.1 PG MCHC (test code = 1007) 34.1 G/DL RDW (test code = 1038) 13.9 % NEUTROPHILS (test code = 1008) 61 % LYMPHOCYTES (test code = 1010) 29 % MONOCYTES (test code = 1011) 7 % EOSINOPHILS (test code = 1012) 2 % BASOPHILS (test code = 1013) 1 % PLATELET COUNT (test code = 1015) 223 K/UL HEMOGLOBIN [id number] 00:00:00 Test Item Value Reference Range Interpretation Comments HEMOGLOBIN A1c (test code = 12315) 5.5 % HEMOGLOBIN [id number] 00:00:00 Test Item Value Reference Range Interpretation Comments HEMOGLOBIN A1c (test code = 13182) 5.5 % HEMOGLOBIN [id number] 00:00:00 Test Item Value Reference Range Interpretation Comments HEMOGLOBIN A1c (test code = 50908) 5.5 % [id number] 00:00:00 Test Item Value Reference Range Interpretation Comments TSH (test code = 2821) 1.8 UIU/ML [id number] 00:00:00 Test Item Value Reference Range Interpretation Comments TSH (test code = 2821) 1.8 UIU/ML [id number] 00:00:00 Test Item Value Reference Range Interpretation Comments TSH (test code = 2821) 1.8 UIU/ML LIPID [id number] 00:00:00 Test Item Value Reference Range Interpretation Comments CHOLESTEROL (test code = 2210) 219 MG/DL TRIGLYCERIDES (test code = 2232) 176 MG/DL HDL CHOLESTEROL (test code = 2220) 53 MG/DL CALCULATED LDL CHOL (test code = 131 MG/DL 2237) RISK RATIO LDL/HDL (test code = 2.47 RATIO 2238) CBC W/AUTO [id number] 00:00:00 Test Item Value Reference Range Interpretation Comments WBC (test code = 1001) 6.3 K/UL RBC (test code = 1002) 4.89 M/UL HEMOGLOBIN (test code = 1003) 15.2 G/DL HEMATOCRIT (test code = 1004) 44.6 % MCV (test code = 1005) 91.2 fL MCH (test code = 1006) 31.1 PG MCHC (test code = 1007) 34.1 G/DL RDW (test code = 1038) 13.9 % NEUTROPHILS (test code = 1008) 61 % LYMPHOCYTES (test code = 1010) 29 % MONOCYTES (test code = 1011) 7 % EOSINOPHILS (test code = 1012) 2 % BASOPHILS (test code = 1013) 1 % PLATELET COUNT (test code = 1015) 223 K/UL CBC W/AUTO [id number] 00:00:00 Test Item Value Reference Range Interpretation Comments WBC (test code = 1001) 6.3 K/UL RBC (test code = 1002) 4.89 M/UL HEMOGLOBIN (test code = 1003) 15.2 G/DL HEMATOCRIT (test code = 1004) 44.6 % MCV (test code = 1005) 91.2 fL MCH (test code = 1006) 31.1 PG MCHC (test code = 1007) 34.1 G/DL RDW (test code = 1038) 13.9 % NEUTROPHILS (test code = 1008) 61 % LYMPHOCYTES (test code = 1010) 29 % MONOCYTES (test code = 1011) 7 % EOSINOPHILS (test code = 1012) 2 % BASOPHILS (test code = 1013) 1 % PLATELET COUNT (test code = 1015) 223 K/UL HEMOGLOBIN [id number] 00:00:00 Test Item Value Reference Range Interpretation Comments HEMOGLOBIN A1c (test code = 87618) 5.5 % HEMOGLOBIN [id number] 00:00:00 Test Item Value Reference Range Interpretation Comments HEMOGLOBIN A1c (test code = 43001) 5.5 % [id number] 00:00:00 Test Item Value Reference Range Interpretation Comments TSH (test code = 2821) 1.8 UIU/ML [id number] 00:00:00 Test Item Value Reference Range Interpretation Comments TSH (test code = 2821) 1.8 UIU/ML COMPREHENSIVE METABOLIC [id number] 00:00:00 Test Item Value Reference Range Interpretation Comments GLUCOSE (test code = 2217) 68 MG/DL BUN (test code = 2208) 11 MG/DL CREATININE (test code = 2214) 0.5 MG/DL eGFR AMER. (test code 159 ML/MIN/1.73 = 98855) eGFR NON- AMER. (test 131 ML/MIN/1.73 code = 85158) CALCULATED BUN/CREAT (test 22 RATIO code = 2235) SODIUM (test code = 2231) 139 MEQ/L POTASSIUM (test code = 2228) 4.5 MEQ/L CHLORIDE (test code = 2215) 105 MEQ/L CARBON DIOXIDE (test code = 25 MEQ/L 2205) CALCIUM (test code = 2209) 9.4 MG/DL PROTEIN, TOTAL (test code = 7.0 G/DL 2228) ALBUMIN (test code = 2201) 4.1 G/DL CALCULATED GLOBULIN (test 2.9 G/DL code = 2240) CALCULATED A/G RATIO (test 1.4 RATIO code = 2234) BILIRUBIN, TOTAL (test code = 0.6 MG/DL 2206) ALKALINE PHOSPHATASE (test 63 U/L code = 2204) SGOT (AST) (test code = 2218) 18 U/L SGPT (ALT) (test code = 2219) 19 U/L LIPID [id number] 00:00:00 Test Item Value Reference Range Interpretation Comments CHOLESTEROL (test code = 2210) 219 MG/DL TRIGLYCERIDES (test code = 2232) 176 MG/DL HDL CHOLESTEROL (test code = 2220) 53 MG/DL CALCULATED LDL CHOL (test code = 131 MG/DL 2236) RISK RATIO LDL/HDL (test code = 2.47 RATIO 8) CBC W/AUTO [id number] 00:00:00 Test Item Value Reference Range Interpretation Comments WBC (test code = 1001) 6.3 K/UL RBC (test code = 1002) 4.89 M/UL HEMOGLOBIN (test code = 1003) 15.2 G/DL HEMATOCRIT (test code = 1004) 44.6 % MCV (test code = 1005) 91.2 fL MCH (test code = 1006) 31.1 PG MCHC (test code = 1007) 34.1 G/DL RDW (test code = 1038) 13.9 % NEUTROPHILS (test code = 1008) 61 % LYMPHOCYTES (test code = 1010) 29 % MONOCYTES (test code = 1011) 7 % EOSINOPHILS (test code = 1012) 2 % BASOPHILS (test code = 1013) 1 % PLATELET COUNT (test code = 1015) 223 K/UL CBC W/AUTO [id number] 00:00:00 Test Item Value Reference Range Interpretation Comments WBC (test code = 1001) 6.3 K/UL RBC (test code = 1002) 4.89 M/UL HEMOGLOBIN (test code = 1003) 15.2 G/DL HEMATOCRIT (test code = 1004) 44.6 % MCV (test code = 1005) 91.2 fL MCH (test code = 1006) 31.1 PG MCHC (test code = 1007) 34.1 G/DL RDW (test code = 1038) 13.9 % NEUTROPHILS (test code = 1008) 61 % LYMPHOCYTES (test code = 1010) 29 % MONOCYTES (test code = 1011) 7 % EOSINOPHILS (test code = 1012) 2 % BASOPHILS (test code = 1013) 1 % PLATELET COUNT (test code = 1015) 223 K/UL HEMOGLOBIN [id number] 00:00:00 Test Item Value Reference Range Interpretation Comments HEMOGLOBIN A1c (test code = 02973) 5.5 % HEMOGLOBIN [id number] 00:00:00 Test Item Value Reference Range Interpretation Comments HEMOGLOBIN A1c (test code = 33403) 5.5 % [id number] 00:00:00 Test Item Value Reference Range Interpretation Comments TSH (test code = 2821) 1.8 UIU/ML [id number] 00:00:00 Test Item Value Reference Range Interpretation Comments TSH (test code = 2821) 1.8 UIU/ML COMPREHENSIVE METABOLIC [id number] 00:00:00 Test Item Value Reference Range Interpretation Comments GLUCOSE (test code = 2217) 68 MG/DL BUN (test code = 2208) 11 MG/DL CREATININE (test code = 2214) 0.5 MG/DL eGFR AMER. (test code 159 ML/MIN/1.73 = 43441) eGFR NON- AMER. (test 131 ML/MIN/1.73 code = 99143) CALCULATED BUN/CREAT (test 22 RATIO code = 2235) SODIUM (test code = 2231) 139 MEQ/L POTASSIUM (test code = 2228) 4.5 MEQ/L CHLORIDE (test code = 2215) 105 MEQ/L CARBON DIOXIDE (test code = 25 MEQ/L 2205) CALCIUM (test code = 2209) 9.4 MG/DL PROTEIN, TOTAL (test code = 7.0 G/DL 2228) ALBUMIN (test code = 2201) 4.1 G/DL CALCULATED GLOBULIN (test 2.9 G/DL code = 2240) CALCULATED A/G RATIO (test 1.4 RATIO code = 2234) BILIRUBIN, TOTAL (test code = 0.6 MG/DL 2207) ALKALINE PHOSPHATASE (test 63 U/L code = 2204) SGOT (AST) (test code = 2218) 18 U/L SGPT (ALT) (test code = 2219) 19 U/L LIPID [id number] 00:00:00 Test Item Value Reference Range Interpretation Comments CHOLESTEROL (test code = 2210) 219 MG/DL TRIGLYCERIDES (test code = 2232) 176 MG/DL HDL CHOLESTEROL (test code = 2220) 53 MG/DL CALCULATED LDL CHOL (test code = 131 MG/DL 2237) RISK RATIO LDL/HDL (test code = 2.47 RATIO 2238) CBC W/AUTO [id number] 00:00:00 Test Item Value Reference Range Interpretation Comments WBC (test code = 1001) 6.3 K/UL RBC (test code = 1002) 4.89 M/UL HEMOGLOBIN (test code = 1003) 15.2 G/DL HEMATOCRIT (test code = 1004) 44.6 % MCV (test code = 1005) 91.2 fL MCH (test code = 1006) 31.1 PG MCHC (test code = 1007) 34.1 G/DL RDW (test code = 1038) 13.9 % NEUTROPHILS (test code = 1008) 61 % LYMPHOCYTES (test code = 1010) 29 % MONOCYTES (test code = 1011) 7 % EOSINOPHILS (test code = 1012) 2 % BASOPHILS (test code = 1013) 1 % PLATELET COUNT (test code = 1015) 223 K/UL CBC W/AUTO [id number] 00:00:00 Test Item Value Reference Range Interpretation Comments WBC (test code = 1001) 6.3 K/UL RBC (test code = 1002) 4.89 M/UL HEMOGLOBIN (test code = 1003) 15.2 G/DL HEMATOCRIT (test code = 1004) 44.6 % MCV (test code = 1005) 91.2 fL MCH (test code = 1006) 31.1 PG MCHC (test code = 1007) 34.1 G/DL RDW (test code = 1038) 13.9 % NEUTROPHILS (test code = 1008) 61 % LYMPHOCYTES (test code = 1010) 29 % MONOCYTES (test code = 1011) 7 % EOSINOPHILS (test code = 1012) 2 % BASOPHILS (test code = 1013) 1 % PLATELET COUNT (test code = 1015) 223 K/UL HEMOGLOBIN [id number] 00:00:00 Test Item Value Reference Range Interpretation Comments HEMOGLOBIN A1c (test code = 08414) 5.5 % HEMOGLOBIN [id number] 00:00:00 Test Item Value Reference Range Interpretation Comments HEMOGLOBIN A1c (test code = 46369) 5.5 % [id number] 00:00:00 Test Item Value Reference Range Interpretation Comments TSH (test code = 2821) 1.8 UIU/ML [id number] 00:00:00 Test Item Value Reference Range Interpretation Comments TSH (test code = 2821) 1.8 UIU/ML COMPREHENSIVE METABOLIC [id number] 00:00:00 Test Item Value Reference Range Interpretation Comments GLUCOSE (test code = 2217) 68 MG/DL BUN (test code = 2208) 11 MG/DL CREATININE (test code = 2214) 0.5 MG/DL eGFR AMER. (test code 159 ML/MIN/1.73 = 02143) eGFR NON- AMER. (test 131 ML/MIN/1.73 code = 84436) CALCULATED BUN/CREAT (test 22 RATIO code = 2235) SODIUM (test code = 2231) 139 MEQ/L POTASSIUM (test code = 2228) 4.5 MEQ/L CHLORIDE (test code = 2215) 105 MEQ/L CARBON DIOXIDE (test code = 25 MEQ/L 2205) CALCIUM (test code = 2209) 9.4 MG/DL PROTEIN, TOTAL (test code = 7.0 G/DL 2228) ALBUMIN (test code = 2201) 4.1 G/DL CALCULATED GLOBULIN (test 2.9 G/DL code = 2240) CALCULATED A/G RATIO (test 1.4 RATIO code = 2234) BILIRUBIN, TOTAL (test code = 0.6 MG/DL 2206) ALKALINE PHOSPHATASE (test 63 U/L code = 2204) SGOT (AST) (test code = 2218) 18 U/L SGPT (ALT) (test code = 2219) 19 U/L COMPREHENSIVE METABOLIC [id number] 00:00:00 Test Item Value Reference Range Interpretation Comments GLUCOSE (test code = 2217) 68 MG/DL BUN (test code = 2208) 11 MG/DL CREATININE (test code = 2214) 0.5 MG/DL eGFR AMER. (test code 159 ML/MIN/1.73 = 12719) eGFR NON- AMER. (test 131 ML/MIN/1.73 code = 65162) CALCULATED BUN/CREAT (test 22 RATIO code = 2235) SODIUM (test code = 2231) 139 MEQ/L POTASSIUM (test code = 2228) 4.5 MEQ/L CHLORIDE (test code = 2215) 105 MEQ/L CARBON DIOXIDE (test code = 25 MEQ/L 2205) CALCIUM (test code = 2209) 9.4 MG/DL PROTEIN, TOTAL (test code = 7.0 G/DL 2228) ALBUMIN (test code = 2201) 4.1 G/DL CALCULATED GLOBULIN (test 2.9 G/DL code = 2240) CALCULATED A/G RATIO (test 1.4 RATIO code = 2234) BILIRUBIN, TOTAL (test code = 0.6 MG/DL 2206) ALKALINE PHOSPHATASE (test 63 U/L code = 2204) SGOT (AST) (test code = 2218) 18 U/L SGPT (ALT) (test code = 2219) 19 U/L LIPID [id number] 00:00:00 Test Item Value Reference Range Interpretation Comments CHOLESTEROL (test code = 2210) 219 MG/DL TRIGLYCERIDES (test code = 2232) 176 MG/DL HDL CHOLESTEROL (test code = 2220) 53 MG/DL CALCULATED LDL CHOL (test code = 131 MG/DL 7) RISK RATIO LDL/HDL (test code = 2.47 RATIO 2238) LIPID [id number] 00:00:00 Test Item Value Reference Range Interpretation Comments CHOLESTEROL (test code = 2210) 219 MG/DL TRIGLYCERIDES (test code = 2232) 176 MG/DL HDL CHOLESTEROL (test code = 2220) 53 MG/DL CALCULATED LDL CHOL (test code = 131 MG/DL 7) RISK RATIO LDL/HDL (test code = 2.47 RATIO 2238)"
[2022-09-03 01:01] LABS: Absolute Lymphocytes (CBC) 2.6 K/uL (0.7-4.9); Hematocrit 46.4 % (36.0-45.0); MCV 89.2 fL (80-100); MPV 9.5 fL (7.6-11.3)
[2022-09-03 01:19] LABS: Potassium 3.6 mEq/L (3.5-5.1); Troponin High Sensitivity 24.4 pg/mL (<58.9)
--- NOTE | 2022-09-03 04:27 | ER ---
Nurse's Notes [facility] Name: Nat Reilly Age: 56 yrs Sex: Female : 1965 Arrival Date: 09/03/2022 Time: 00:20 Bed 8 Private MD: Diagnosis: Chest pain, unspecified;Palpitations Presentation: 09/03 00:24 Chief complaint: EMS states: toned out for high blood pressure and SOB, pt began c/o aa9 chest pain en route provided 324 ASA en route. Coronavirus screen: Vaccine status: Patient reports receiving the 2nd dose of the covid vaccine. Ebola Screen: No symptoms or risks identified at this time. Initial Sepsis Screen: Does the patient meet any 2 criteria? No. Patient's initial sepsis screen is negative. Does the patient have a suspected source of infection? No. Patient's initial sepsis screen is negative. Risk Assessment: Do you want to hurt yourself or someone else? Patient reports no desire to harm self or others. Onset of symptoms was September 03, 2022. Care prior to arrival: Medication(s) given: ASA, 325 mg, x 1. 00:24 Method Of Arrival: EMS: [facility] aa9 00:24 Acuity: KIRT 3 aa9 00:24 Acuity: KIRT 2 aa9 Triage Assessment: 00:26 General: Appears uncomfortable, obese, Behavior is cooperative, anxious. Pain: aa9 Complains of pain in chest Pain currently is 6 out of 10 on a pain scale. Noted to be guarding, moaning. Neuro: Level of Consciousness is awake, alert, obeys commands, Oriented to person, place, time, situation. Cardiovascular: Reports chest pain, shortness of breath. Respiratory: Airway is patent Respiratory effort is even, unlabored. : No signs and/or symptoms were reported regarding the genitourinary system. Derm: Skin is intact, is healthy with good turgor. Historical: - Allergies: 00: Amoxicillin; aa9 - Home Meds: 00:26 Metoprolol Tartrate Oral [Active]; aa9 - PMHx: 00:26 Anxiety; Hypertension; aa9 - Immunization history:: Client reports receiving the 2nd dose of the Covid vaccine. - Social history:: Smoking status: Patient denies any tobacco usage or history of. Screenin:37 [facility] ED Fall Risk Assessment (Adult) History of falling in the last 3 months, aa9 including since admission No falls in past 3 months (0 pts) Confusion or Disorientation No (0 pts) Intoxicated or Sedated No (0 pts) Impaired Gait No (0 pts) Mobility Assist Device Used No (0 pt) Altered Elimination No (0 pt) Score/Fall Risk Level 0 - 2 = Low Risk Oriented to surroundings, Maintained a safe environment. Abuse screen: Denies threats or abuse. Denies injuries from another. Nutritional screening: No deficits noted. Tuberculosis screening: No symptoms or risk factors identified. Assessment: 01:45 Reassessment: Patient appears in no apparent distress at this time. Patient and/or aa9 family updated on plan of care and expected duration. Pain level reassessed. Patient is alert, oriented x 3, equal unlabored respirations, skin warm/dry/pink. 03:10 Reassessment: Patient appears in no apparent distress at this time. Patient and/or aa9 family updated on plan of care and expected duration. Pain level reassessed. Patient is alert, oriented x 3, equal unlabored respirations, skin warm/dry/pink. 05:00 Reassessment: Patient appears in no apparent distress at this time. Patient and/or aa9 family updated on plan of care and expected duration. Pain level reassessed. Patient is alert, oriented x 3, equal unlabored respirations, skin warm/dry/pink. Patient states symptoms have improved. Vital Signs: 00:24 BP 160 / 90; Pulse 81; Resp 18; Pulse Ox 100% on R/A; Weight 127.01 kg (R); Height 5 aa9 ft. 1 in. (R); Pain 6/10; 01:45 BP 143 / 74; Pulse 72; Resp 17; Pulse Ox 98% on R/A; aa9 02:00 BP 128 / 74; Pulse 73; Resp 16; Pulse Ox 98% on R/A; aa9 03:00 BP 128 / 68; Pulse 69; Resp 17; Pulse Ox 94% on R/A; aa9 03:36 BP 134 / 66; Pulse 72; Resp 17; Pulse Ox 98% on R/A; aa9 05:01 BP 132 / 75; Pulse 70; Resp 17; Temp 98.5(O); Pulse Ox 98% on R/A; aa9 00:24 Body Mass Index 52.90 (127.01 kg, 154.94 cm) aa9 00:24 Pain Scale: Adult aa9 ED Course: 00:23 Patient arrived in ED. rv1 00:26 Triage completed. aa 00:27 Juan Manuel Monroy MD is Attending Physician. kdr 00:28 Arm band placed on. aa9 00:28 Patient has correct armband on for positive identification. Placed in gown. Bed in low aa9 position. Call light in reach. Side rails up X2. 00:40 Jory Cook, RN is Primary Nurse. aa9 00:50 XRAY Chest (1 view) In Process Unspecified. EDMS 00:50 Inserted saline lock: 20 gauge in right wrist, using aseptic technique. Blood collected.aa9 00:52 Basic Metabolic Panel Sent. aa9 00:52 CBC with Diff Sent. aa9 00:52 Troponin HS Sent. aa9 03:00 Troponin High Sensitivity: Draw 2 hours after initial draw Sent. aa9 05:00 No provider procedures requiring assistance completed. IV discontinued, intact, aa9 bleeding controlled, No redness/swelling at site. Pressure dressing applied. Administered Medications: 04:46 Drug: Ativan IVP 1 mg Route: IVP; Site: right wrist; lg3 Medication: 05:00 VIS not applicable for this client. aa9 Outcome: 04:27 Discharge ordered by . kdr 05:00 Discharged to home ambulatory. aa9 05:00 Condition: stable 05:00 Discharge instructions given to patient, Instructed on discharge instructions, follow up and referral plans. Demonstrated understanding of instructions, follow-up care. 05:01 Patient left the ED. aa9 Signatures: Dispatcher [employer] EDNC Juan Manuel Monroy MD MD kdr Gibson, Lacie RN RN lg3 Jory Cook, RN RN aa9 Kerri Skinner rv1
--- NOTE | 2022-09-03 04:27 | EDPHYS ---
Physician Documentation [facility] Name: Nat Reilly Age: 56 yrs Sex: Female : 1965 Arrival Date: 09/03/2022 Time: 00:20 Bed 8 Private MD: ED Physician Juan Manuel Monroy HPI: 09/03 05:05 This 56 yrs old Female presents to ER via EMS with unknown complaint. kdr 05:05 This 56 yrs old Female presents to ER via EMS with complaints of Hypertension kdr shortness of breath. 05:05 Patient presents complaining of hypertension and shortness of breath. He also kdr complained of chest pain while being brought to the ED. EMS gave aspirin 324. Patient otherwise appears stable and nonacute. Onset: The symptoms/episode began/occurred today. Severity of symptoms: At their worst the symptoms were mild in the emergency department the symptoms are unchanged. The patient has experienced similar episodes in the past, multiple times. The patient has not recently seen a physician. Historical: - Allergies: 00:26 Amoxicillin; aa9 - Home Meds: 00:26 Metoprolol Tartrate Oral [Active]; aa9 - PMHx: 00:26 Anxiety; Hypertension; aa9 - Immunization history:: Client reports receiving the 2nd dose of the Covid vaccine. - Social history:: Smoking status: Patient denies any tobacco usage or history of. ROS: 05:05 Constitutional: Negative for fever, chills, and weight loss, Eyes: Negative for injury, kdr pain, redness, and discharge, Neck: Negative for injury, pain, and swelling, Respiratory: Negative for shortness of breath, cough, wheezing, and pleuritic chest pain, Abdomen/GI: Negative for abdominal pain, nausea, vomiting, diarrhea, and constipation, Back: Negative for injury and pain, : Negative for injury, bleeding, discharge, and swelling, MS/Extremity: Negative for injury and deformity, Skin: Negative for injury, rash, and discoloration, Neuro: Negative for headache, weakness, numbness, tingling, and seizure activity. Psych: Negative for depression, anxiety, suicide ideation, homicidal ideation, and hallucinations, Allergy/Immunology: Negative for hives, rash, and allergies, Endocrine: Negative for neck swelling, polydipsia, polyuria, polyphagia, and marked weight changes, Hematologic/Lymphatic: Negative for swollen nodes, abnormal bleeding, and unusual bruising. 05:05 Cardiovascular: Positive for chest pain, of the left breast, palpitations. 05:05 Respiratory: Positive for shortness of breath, at rest. Negative for hemoptysis, orthopnea, pleurisy. Exam: 05:05 Constitutional: This is a well developed, well nourished patient who is awake, alert, kdr and in no acute distress. Head/Face: Normocephalic, atraumatic. Eyes: Pupils equal round and reactive to light, extra-ocular motions intact. Lids and lashes normal. Conjunctiva and sclera are non-icteric and not injected. Cornea within normal limits. Periorbital areas with no swelling, redness, or edema. Neck: Trachea midline, no thyromegaly or masses palpated, and no cervical lymphadenopathy. Supple, full range of motion without nuchal rigidity, or vertebral point tenderness. No Meningismus. Chest/axilla: Normal chest wall appearance and motion. Nontender with no deformity. No lesions are appreciated. Cardiovascular: Regular rate and rhythm with a normal S1 and S2. No gallops, murmurs, or rubs. Normal PMI, no JVD. No pulse deficits. Respiratory: Lungs have equal breath sounds bilaterally, clear to auscultation and percussion. No rales, rhonchi or wheezes noted. No increased work of breathing, no retractions or nasal flaring. Abdomen/GI: Soft, non-tender, with normal bowel sounds. No distension or tympany. No guarding or rebound. No evidence of tenderness throughout. Back: No spinal tenderness. No costovertebral tenderness. Full range of motion. Skin: Warm, dry with normal turgor. Normal color with no rashes, no lesions, and no evidence of cellulitis. MS/ Extremity: Pulses equal, no cyanosis. Neurovascular intact. Full, normal range of motion. Neuro: Awake and alert, GCS 15, oriented to person, place, time, and situation. Cranial nerves II-XII grossly intact. Motor strength 5/5 in all extremities. Sensory grossly intact. Cerebellar exam normal. Normal gait. Psych: Awake, alert, with orientation to person, place and time. Behavior, mood, and affect are within normal limits. Vital Signs: 00:24 BP 160 / 90; Pulse 81; Resp 18; Pulse Ox 100% on R/A; Weight 127.01 kg (R); Height 5 aa9 ft. 1 in. (R); Pain 6/10; 01:45 BP 143 / 74; Pulse 72; Resp 17; Pulse Ox 98% on R/A; aa9 02:00 BP 128 / 74; Pulse 73; Resp 16; Pulse Ox 98% on R/A; aa9 03:00 BP 128 / 68; Pulse 69; Resp 17; Pulse Ox 94% on R/A; aa9 03:36 BP 134 / 66; Pulse 72; Resp 17; Pulse Ox 98% on R/A; aa9 05:01 BP 132 / 75; Pulse 70; Resp 17; Temp 98.5(O); Pulse Ox 98% on R/A; aa9 00:24 Body Mass Index 52.90 (127.01 kg, 154.94 cm) aa9 00:24 Pain Scale: Adult aa9 MDM: 04:27 Patient medically screened. kdr 05:05 Data reviewed: vital signs, nurses notes, lab test result(s), radiologic studies. I kdr considered the following discharge prescriptions or medication management in the emergency department Medications were administered in the Emergency Department. See JUL. 09/03 00:29 Order name: Basic Metabolic Panel; Complete Time: 01:52 kdr 09/03 00:29 Order name: CBC with Diff; Complete Time: 01:52 kdr 09/03 00:29 Order name: Troponin HS; Complete Time: 01:52 kdr 09/03 01:53 Order name: Troponin High Sensitivity: Draw 2 hours after initial draw; Complete Time: kdr 09/03 00:29 Order name: XRAY Chest (1 view) kdr 09/03 00:29 Order name: EKG; Complete Time: 00:30 kdr 09/03 00:29 Order name: Cardiac monitoring; Complete Time: 03:54 kdr 09/03 00:29 Order name: EKG - Nurse/Tech; Complete Time: 01:13 kdr 09/03 00:29 Order name: IV Saline Lock; Complete Time: 00:52 kdr 09/03 00:29 Order name: Labs collected and sent; Complete Time: 00:52 kdr 09/03 00:29 Order name: O2 Per Protocol; Complete Time: 00:52 kdr 09/03 00:29 Order name: O2 Sat Monitoring; Complete Time: 00:52 kdr Administered Medications: 04:46 Drug: Ativan IVP 1 mg Route: IVP; Site: right wrist; lg3 Disposition Summary: 09/03/22 04:27 Discharge Ordered Location: Home kdr Problem: an acute exacerbation kdr Symptoms: are resolved kdr Condition: Stable kdr Diagnosis - Chest pain, unspecified kdr - Palpitations kdr Followup: kdr - With: Private Physician - When: 2 - 3 days - Reason: If symptoms return, Further diagnostic work-up, Recheck today's complaints, Continuance of care, Re-evaluation by your physician Discharge Instructions: - Discharge Summary Sheet kdr - Nonspecific Chest Pain, Adult, [id number] kdr - Palpitations, [id number] kdr Forms: - Medication Reconciliation Form kdr - Thank You Letter kdr Signatures: Dispatcher [employer] Juan Manuel Fernandes MD MD kdr Carole Fry, RN RN lg3 Jory Cook RN RN aa9
[2022-09-03] MEDS ORDERED: LORazepam 2 MG/ML VIAL ONE (04:43)
[2022-09-03 05:27] VITALS: O2SAT 98
[2022-09-03 05:30] VITALS: BP 132/75; TEMP 98.5
--- NOTE | 2022-09-04 13:24 | RAD REPORT ---
EXAM DESCRIPTION: RAD - Chest Single View - 09/03/2022 12:48 am CLINICAL HISTORY: Chest pain. Dyspnea.. TECHNIQUE: AP portable chest x-ray upright on 09/03/2022, at 00: 38. COMPARISON: None. FINDINGS: Heart: Normal size and configuration. Mediastinal Structures: Normal and midline.. Lung Pearson: No active disease. Pulmonary Vascularity: Normal. Pleural Space: No active disease. Bony Structures: Normal. IMPRESSION: Normal study. Electronically signed by: Gael Lee MD 09/03/2022 9:08 PM CDT Due to temporary technical issues with the PACS/Fluency reporting system, reports are being signed by the in house radiologists without review as a courtesy to insure prompt reporting. The interpreting radiologist is fully responsible for the content of the report.
--- NOTE | 2022-09-08 12:46 | EKG ---
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
== END 2022-09-03 05:01 | disposition home or self-care (01) ==
LOC: ER 00:20
DX: R07.9 Chest pain, unspecified (principal); R00.2 Palpitations
CPT/HCPCS: 36415; 71045; 80048; 84484; 85025; 93005; 96374; 99284

== ENCOUNTER 2022-12-09 12:56 | Observation (INO) | payer OTHER, SELFPAY ==
--- OUTSIDE RECORDS SUMMARY | 2022-12-09 13:11 | XMS REPORT | Continuity of Care Document ---
:1965 Author Organization [facility] t Address [address] [facility]. [address] [place] [address] Care Team Providers Name Role Phone JOSE Wilson [facility], [facility] Primary Care P hysician Unavailable SOUMYA HA Attending Clinician Unavailable MICHAEL MUELLER Attending Clinician Unavailable Michael Riley Attending Clinician Evaristo Gabriel MD Attending Clinician CHERYL GIORDANO Attending Clinician Unavailable Cheryl Villanueva Attending Clinician [phone] EVARISTO GABRIEL Attending Clinician Unavailable Doctor Unassigned, Canones Attending Clinician Unavailable CHARLOTTE MURPHY Attending Clinician Unavailable Karl RAMIREZ, Mitra Campos Attending Clinician Charlotte Murphy MD Attending Clinician REBEKA AG Attending Clinician Unavailable Anni Simon Attending Clinician Soumya Stanton Attending Clinician MICHAEL MUELLER Admitting Clinician Unavailable CHARLOTTE MURPHY Admitting Clinician Unavailable Charlotte Murphy MD Admitting Clinician Payers Payer Name Policy Type Policy Number Effective Date Expiration Date [employer] COMMERCIAL [id number] 2021 NON-CONTRACT 00:00:00 GENERIC MEDICAID TA PENDING 2021 PENDING 00:00:00 Problems Condition Condition Condition Status Onset Resolution Last Treating Co mments Source Name Details Category Date Date Treatment Clinician Date Dyslipidem Dyslipidem Disease Active 2020-05 U nivers ia ia 2-18 ity of 00:00: [place] [facility] Left arm Left arm Disease Active 2020-05 Unive rs pain pain 2-18 ity of 00:00: [place] [facility] Atypical Atypical Disease Active 2020-05 Unive rs chest pain chest pain 2-17 it y of 00:00: [place] [address] Medical Branch BMI BMI Disease Active Univers 50.0-59.9, 50.0-59.9, 7-22 it y of adult adult 00:00: [place] [address] Medical Branch Encounter Encounter Disease Active Uni vers for for 7 ity of surveillan surve[place] of Medical contracept contracept Br anch jacqueline, jacqueline, unspecifie unspecifie d d contracept contracept alycia alycia Well woman Well woman Disease Active U nivers exam exam - ity of 00:00: [place] [facility] Essential Essential Disease Active Uni vers hypertensi hypertensi 9-28 it y of on on 00:00: [place] [facility] Breast Breast Disease Active Univers tenderness tenderness 2-02 it [facility] Generalize Generalize Disease Active U nivers d anxiety d anxiety 2-02 ity of disorder disorder 00:00: [place] [address] Medical Branch Encounter Encounter Disease Active Overview: Univers for for 07-07 Formattin ity of routine routine 00:00: g of this [place] gynecologi gynecologi 00 note Me dical yady yady might be Branch examinatio examinatio different n n from the original. 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 SARS-CoV-2 00:00:00 22:26:00 [facility] (event) Branch Alcohol intake 2021-09-24 2021-09-24 Current University of 00:00:00 00:00:00 non-drinker of [facility] alcohol Branch (finding) Tobacco use and 2012-07-07 2012-07-07 Never used Universit y of exposure 00:00:00 00:00:00 [facility] Sex Ass[birth year] At [birth year] Universit y of 00:00:00 00:00:00 [facility] Smoking Status Start Date Stop Date Source Never smoker [facility] Medications Ordered Filled Start Stop Current Ordering [...] 00 topical cream TAKE 1 0 No [id number] TABLET 7-17 TWICE DAILY 00:00: WITH FOOD. 00 TAKE 1 2021-0 No [id number] TABLET 7-17 TWICE DAILY 00:00: WITH FOOD. 00 TAKE 1 2-0 No [id number] TABLET 7-17 TWICE DAILY 00:00: WITH FOOD. 00 TAKE 1 2021-0 No [id number] TABLET 7-17 TWICE DAILY 00:00: WITH FOOD. 00 TAKE 1 2021-0 No [id number] TABLET 7-17 TWICE DAILY 00:00: WITH FOOD. [...] yady 1:1:1 Wed Branch ([facility] 09/25/21 at [facility]) 0315, oral Routine suspension 15 mL metoclopram 2021- No 10mg 10 mg, Uni vers sacha HCl -25 09-18 Slow IV ity of (REGLAN) 07:30: 06:35 [place], [place] injection 00 :00 ONCE, 1 Medical 10 mg dose, On Branch 09/25/21 at 0230, ROZ iopamidol 2021- No [id number] 120mL 120 mL, Univers (ISOVUE 5-25 09-18 [...] 09/25/21 at 0015, ROZ dicyclomine 0 Yes [id number] 10mg Take 1 Univers 10 mg 5-18 capsule by ity of capsule 00:00: mouth 4 [place] 00 (four) Medical times Branch daily. proMETHazin 2022-0 Yes [id number] 25mg Take 1 Univers e 25 mg [...] 00:00: ayed 00 release metoprolol 2022-0 Yes [id number] 50mg Take 1 U nivers tartrate 50 4-01 tablet by ity of mg tablet 00:00: mouth 2 [place] 00 (two) Medical times Branch daily. metoprolol 2022-0 Yes [id number] 50mg Take 1 U nivers tartrate 50 [...] 50 3-29 mg tablet 00:00: 00 Dose 2021-0 No Unknown 3- [...] 50 3-29 mg tablet 00:00: 00 Dose 2021-0 No Unknown 3-29 00:00: 00 Dose 2-0 [...] tartrate 50 3-29 mg tablet 00:00: 00 metoprolol 2-0 2- No 50mg Take 50 mg Univers tartrate 50 06-10 by mouth 2 i ty of mg tablet 15:26: 00:00 (two) [place] 10 :00 times Medical daily. Branch Take 1 tablet in the morning and one half in the evening ALBUTEROL 2021-0 Yes Inhale. Unive rs SULFATE 1-31 ity of INHALE 15:09: [address] Branch acetaminoph Yes Take by Uni vers en (TYLENOL 1-31 mouth. ity of ORAL) 15:09: [address] ALBUTEROL Yes Inhale. Unive rs SULFATE 1-31 ity of INHALE 15:09: [address] Branch acetaminoph Yes Take by Uni vers en (TYLENOL 1-31 mouth. ity of ORAL) 15:09: [address] ALBUTEROL Yes Inhale. Unive rs SULFATE 1-31 ity of INHALE 15:09: [address] acetaminoph Yes Take by Uni vers en (TYLENOL 1-31 mouth. ity of ORAL) 15:09: [address] ALBUTEROL 0 Yes Inhale. Unive rs SULFATE 1-31 ity of INHALE 15:09: [address] acetaminoph Yes Take by Uni vers en (TYLENOL 1-31 mouth. ity of ORAL) 15:09: [address] omeprazole 2021-0 Yes 40mg Take 40 mg U nivers 10 mg 1-31 by mouth ity of capsule 15:06: daily. [address] omeprazole 2021-0 Yes 40mg Take 40 mg U nivers 10 mg 1-31 by mouth ity of capsule 15:06: daily. [address] omeprazole 2021-0 Yes 40mg Take 40 mg U nivers 10 mg 1-31 by mouth ity of capsule 15:06: daily. [address] omeprazole 2021-0 Yes 40mg Take 40 mg U nivers 10 mg 1-31 by mouth ity of capsule 15:06: daily. [address] metoprolol 2021-0 Yes [id number] 50mg Take 1 U nivers tartrate 50 1-31 tablet by ity of mg tablet 00:00: mouth 2 [place] 00 (two) Medical times Branch daily. metoprolol 2021-0 Yes [id number] 50mg Take 1 U nivers tartrate 50 1-31 tablet by ity of mg tablet 00:00: mouth 2 [place] 00 (two) Medical times Branch daily. metoprolol 2021-0 2021- No [id number] 50mg Take 1 Univers tartrate 50 1-31 [...] tartrate 50 0-30 mg tablet 00:00: 00 [facility] 2018-1 No 1% ne 0-29 acetonide 00:00: 0.1 % 00 topical cream metoprolol 2018-1 No 1mg tartrate 50 0-29 mg tablet 00:00: 00 prednisone 2018-1 No mg 20 mg 0-29 tablet 00:00: 00 [facility] 2018-1 No 1% ne 0-29 acetonide 00:00: 0.1 % 00 topical cream metoprolol 2018-1 No 1mg tartrate 50 0-29 mg tablet 00:00: 00 prednisone 2018-1 No mg 20 mg 0-29 tablet 00:00: 00 [facility] 2018-1 No 1% ne 0-29 acetonide 00:00: 0.1 % 00 topical cream metoprolol 2018-1 No 1mg tartrate 50 0-29 mg tablet 00:00: 00 prednisone 2018-1 No mg 20 mg 0-29 tablet 00:00: 00 [facility] 2018-1 No 1% ne 0-29 acetonide 00:00: 0.1 % 00 topical cream metoprolol 2018-1 No 1mg tartrate 50 0-29 mg tablet 00:00: 00 prednisone 2018-1 No mg 20 mg 0-29 tablet 00:00: 00 [facility] 2018-1 No 1% ne 0-29 acetonide 00:00: 0.1 % 00 topical cream metoprolol 2018-1 No 1mg tartrate 50 0-29 mg tablet 00:00: 00 prednisone 2019-1 No mg 20 mg 0-29 tablet 00:00: 00 [facility] 2018-1 No 1% ne 0-29 acetonide [...] 1mg 20 mg 0-15 tablet 00:00: 00 [facility] 2014-05 No 1mg mg tablet 0-09 00:00: 00 [facility] 2014-05 No 1mg mg tablet 0-09 00:00: 00 metoprolol 2014- No 1mg tartrate 25 0-09 mg tablet 00:00: 00 Zithromax 2014- No 1mg Z-Francisco J 250 0-09 mg tablet 00:00: 00 metoprolol 2014- No 1mg tartrate 25 0-09 mg tablet 00:00: 00 Zithromax 2014- No 1mg Z-Francisco J 250 0-09 mg tablet 00:00: 00 [facility] 2014-05 No 1mg mg tablet 0-09 00:00: 00 metoprolol 2014- No 1mg tartrate 25 0-09 mg tablet 00:00: 00 Zithromax 2014- No 1mg Z-Francisco J 250 0-09 mg tablet 00:00: 00 [facility] 2014-05 No 1mg mg tablet 0-09 00:00: 00 metoprolol 2014- No 1mg tartrate 25 0-09 mg tablet 00:00: 00 Zithromax 2014- No 1mg Z-Francisco J 250 0-09 mg tablet 00:00: 00 [facility] 2014-05 No 1mg mg tablet 0-09 00:00: 00 metoprolol 2014- No 1mg tartrate 25 0-09 mg tablet 00:00: 00 Zithromax 2014- No 1mg Z-Francisco J 250 0-09 mg tablet 00:00: 00 [facility] 2014-05 No 1mg mg tablet 0-09 00:00: [...] Immunizations Ordered Filled Immunization Date Status Comments [facility] Immunization Name Name SARS-COV-2 COVID-19 2020-12-13 Completed Unive rsity of PFIZER VACCINE 00:00:00 [facility] SARS-COV-2 COVID-19 2020-12-13 Completed Unive rsity of PFIZER VACCINE 00:00:00 [facility] SARS-COV-2 COVID-19 2020-12-13 Completed Unive rsity of PFIZER VACCINE 00:00:00 [facility] SARS-COV-2 COVID-19 2020-12-13 Completed Unive rsity of PFIZER VACCINE 00:00:00 [facility] SARS-COV-2 COVID-19 2020-11-22 Completed Unive rsity of PFIZER VACCINE 00:00:00 [facility] SARS-COV-2 COVID-19 2020-11-22 Completed Unive rsity of PFIZER VACCINE 00:00:00 [facility] SARS-COV-2 COVID-19 2020-11-22 Completed Unive rsity of PFIZER VACCINE 00:00:00 [facility] SARS-COV-2 COVID-19 2020-11-22 Completed Unive rsity of PFIZER VACCINE 00:00:00 [facility] Tetanus/Diptheria 2012-04-10 Completed Univers ity of 00:00:00 [facility] Tetanus/Diptheria 2012-04-10 Completed Univers ity of 00:00:00 [facility] Tetanus/Diptheria 2012-04-10 Completed Univers ity of 00:00:00 [facility] Tetanus/Diptheria 2012-04-10 Completed Univers ity of 00:00:00 [facility] Vital Signs Vital Name Observation Time Observation Value Comments Source Body temperature 2021-09-25 07:54:00 37 Josette Univ ersity of [facility] Systolic blood 2021-09-25 07:46:00 119 mm[Hg] Univer sity of pressure [facility] Diastolic blood 2021-09-25 07:46:00 81 mm[Hg] Unive rsity of [facility] Heart rate 2021-09-25 07:46:00 79 /min Universi ty of [facility] Respiratory rate 2021-09-25 07:46:00 19 /[facility] in 2021-09-25 06:15:00 98 /min [facility] Arterial blood by [facility] Pulse oximetry [place] Body height 2021-09-25 03:29:00 154.9 cm Universi ty of [facility] Body weight 2021-09-25 03:29:00 127.007 kg Universi ty of [facility] BMI 2021-09-25 03:29:00 52.91 kg/m2 Universi ty [facility] Systolic blood 2021-06-10 21:13:00 146 mm[Hg] Univer sity of pressure [facility] Diastolic blood 2021-06-10 21:13:00 83 mm[Hg] Unive rsity of pressure [facility] Heart rate 2021-06-10 21:05:00 71 /min Universi ty of [facility] Body height 2021-06-10 21:05:00 154.9 cm Universi ty of [facility] Body weight 2021-06-10 21:05:00 128.595 kg [facility] BMI 2021-06-10 21:05:00 53.57 kg/m2 [facility] Oxygen saturation in 2021-06-10 21:05:00 94 /min [facility] blood by [facility] Pulse oximetry Branch BP Systolic 2021-12-25 10:28:00 [...] e POCT GLUCOSE 2021-09-25 08:06:00 Michael Mueller [place] [facility] (AUTOMATED) [facility] Branch CT ABDOMEN PELVIS W 2021-09-25 06:00:00 Michael Mueller [facility] CONTRAST [facility] Branch URINALYSIS 2021-09-25 05:32:00 Michael Mueller [facility] LIPASE 2021-09-25 04:22:00 Michael Mueller [facility] TROPONIN I 2021-09-25 04:22:00 Michael Mueller [place] [facility] COMP. METABOLIC PANEL 2021-09-25 04:22:00 Michael Mueller [facility] ([id number]) [facility] Branch CBC WITH DIFF 2021-09-25 04:22:00 Michael Mueller [facility] NOTICE OF PRIVACY 2021-09-25 02:57:58 Doctor Unassigned, No Univ [facility] PRACTICES Name Medical Branch CONSENT/REFUSAL FOR 2021-09-25 02:57:17 [facility] Branch TREATMENT Plan of Care Planned Activity Planned Date Details Comments Source Goal Plan of Care Note [code = 42167-5] Goal Plan of Care Note [code = 76890-4] Goal Plan of Care Note [code = 09960-8] Goal Plan of Care Note [code = 00189-1] Goal Plan of Care Note [code = 15402-9] Goal Plan of Care Note [code = 11022-3] Goal Plan of Care Note [code = 78995-7] Goal Plan of Care Note [code = 73002-8] Goal Plan of Care Note [code = 50721-2] Goal Plan of Care Note [code = 54095-1] Goal Plan of Care Note [code = 34141-4] Goal Plan of Care Note [code = 19979-4] Goal Plan of Care Note [code = 09630-4] Goal Plan of Care Note [code = 28862-4] Goal Plan of Care Note [code = 51776-1] Goal Plan of Care Note [code = 56701-2] Goal Plan of Care Note [code = 40213-8] Goal Plan of Care Note [code = 22808-1] Goal Plan of Care Note [code = 86140-0] Goal Plan of Care Note [code = 12812-7] Goal Plan of Care Note [code = 69911-1] Goal Plan of Care Note [code = 86053-9] Goal Plan of Care Note [code = 85988-4] Goal Plan of Care Note [code = 99987-8] Goal Plan of Care Note [code = 61705-9] Goal Plan of Care Note [code = 06436-1] Goal Plan of Care Note [code = 71081-6] Goal Plan of Care Note [code = 41763-2] Goal Plan of Care Note [code = 48381-5] Goal Plan of Care Note [code = 49416-4] Goal Plan of Care Note [code = 07731-9] Goal Plan of Care Note [code = 03953-8] Goal Plan of Care Note [code = 45804-8] Goal Plan of Care Note [code = 98387-0] Goal Plan of Care Note [code = 73106-0] Goal Plan of Care Note [code = 43792-5] Goal Plan of Care Note [code = 56341-6] Goal Plan of Care Note [code = 11792-9] Goal Plan of Care Note [code = 31771-9] Goal Plan of Care Note [code = 26642-8] Goal Plan of Care Note [code = 19993-2] Goal Plan of Care Note [code = 45385-8] Goal Plan of Care Note [code = 79799-2] Goal Plan of Care Note [code = 94525-7] Goal Plan of Care Note [code = 22908-0] Goal Plan of Care Note [code = 92586-6] Goal Plan of Care Note [code = 85999-8] Goal Plan of Care Note [code = 61956-7] Goal Plan of Care Note [code = 00472-4] Goal Plan of Care Note [code = 68204-0] Goal Plan of Care Note [code = 05087-9] Goal Plan of Care Note [code = 77950-9] Goal Plan of Care Note [code = 53661-7] Goal Plan of Care Note [code = 42413-5] Goal Plan of Care Note [code = 32271-0] Goal Plan of Care Note [code = 83861-3] Goal Plan of Care Note [code = 62364-0] Goal Plan of Care Note [code = 89534-4] Goal Plan of Care Note [code = 60198-0] Goal Plan of Care Note [code = 55932-3] Goal Plan of Care Note [code = 73758-2] Goal Plan of Care Note [code = 21477-5] Goal Plan of Care Note [code = 69687-4] Goal Plan of Care Note [code = 89487-5] Goal Plan of Care Note [code = 08447-9] Goal Plan of Care Note [code = 12793-8] Goal Plan of Care Note [code = 97389-4] Goal Plan of Care Note [code = 93231-1] Goal Plan of Care Note [code = 53479-6] Goal Plan of Care Note [code = 09876-4] Goal Plan of Care Note [code = 87249-3] Goal Plan of Care Note [code = 97711-8] Goal Plan of Care Note [code = 81456-4] Goal Plan of Care Note [code = 62400-6] Goal Plan of Care Note [code = 98060-4] Goal Plan of Care Note [code = 44177-5] Goal Plan of Care Note [code = 84917-4] Goal Plan of Care Note [code = 04100-9] Goal Plan of Care Note [code = 73765-1] Goal Plan of Care Note [code = 49540-8] Goal Plan of Care Note [code = 18495-7] Goal Plan of Care Note [code = 76469-6] Goal Plan of Care Note [code = 14121-6] Goal Plan of Care Note [code = 45589-2] Goal Plan of Care Note [code = 20830-7] Goal Plan of Care Note [code = 63954-0] Goal Plan of Care Note [code = 75267-3] Goal Plan of Care Note [code = 74980-6] Goal Plan of Care Note [code = 70368-0] Goal Plan of Care Note [code = 05921-4] Goal Plan of Care Note [code = 33276-7] Goal Plan of Care Note [code = 73105-1] Goal Plan of Care Note [code = 12945-3] Goal Plan of Care Note [code = 02674-6] Goal Plan of Care Note [code = 63214-1] Goal Plan of Care Note [code = 97419-1] Goal Plan of Care Note [code = 02509-6] Goal Plan of Care Note [code = 28144-2] Goal Plan of Care Note [code = 41926-7] Goal Plan of Care Note [code = 40567-3] Goal Plan of Care Note [code = 96190-8] Goal Plan of Care Note [code = 27158-1] Goal Plan of Care Note [code = 12217-3] Goal Plan of Care Note [code = 06532-1] Goal Plan of Care Note [code = 02176-9] Goal Plan of Care Note [code = 69519-1] Goal Plan of Care Note [code = 84988-9] Goal Plan of Care Note [code = 97259-9] Goal Plan of Care Note [code = 41235-8] Goal Plan of Care Note [code = 64605-2] Goal Plan of Care Note [code = 26518-1] Goal Plan of Care Note [code = 36338-7] Goal Plan of Care Note [code = 55011-2] Goal Plan of Care Note [code = 32943-8] Goal Plan of Care Note [code = 12817-2] Goal Plan of Care Note [code = 51130-0] Goal Plan of Care Note [code = 19729-3] Goal Plan of Care Note [code = 71155-8] Goal Plan of Care Note [code = 76285-5] Goal Plan of Care Note [code = 70159-7] Goal Plan of Care Note [code = 19293-0] Goal Plan of Care Note [code = 84818-1] Goal Plan of Care Note [code = 81074-5] Goal Plan of Care Note [code = 93724-0] Goal Plan of Care Note [code = 85611-0] Goal Plan of Care Note [code = 06133-3] Goal Plan of Care Note [code = 47550-0] Goal Plan of Care Note [code = 87969-5] Goal Plan of Care Note [code = 15520-7] Goal Plan of Care Note [code = 01598-9] Goal Plan of Care Note [code = 24745-0] Goal Plan of Care Note [code = 65109-4] Goal Plan of Care Note [code = 09558-5] Goal Plan of Care Note [code = 18749-7] Goal Plan of Care Note [code = 53136-4] Goal Plan of Care Note [code = 68937-3] Goal Plan of Care Note [code = 22643-8] Goal Plan of Care Note [code = 67581-7] Goal Plan of Care Note [code = 65435-1] Goal Plan of Care Note [code = 68243-4] Goal Plan of Care Note [code = 27371-7] Goal Plan of Care Note [code = 30400-8] Goal Plan of Care Note [code = 09998-9] Goal Plan of Care Note [code = 55418-5] Goal Plan of Care Note [code = 53919-9] Goal Plan of Care Note [code = 45479-8] Goal Plan of Care Note [code = 83251-4] Goal Plan of Care Note [code = 66201-1] Goal Plan of Care Note [code = 58650-3] Goal Plan of Care Note [code = 74541-3] Goal Plan of Care Note [code = 76693-3] Goal Plan of Care Note [code = 45134-9] Goal Plan of Care Note [code = 39061-9] Goal Plan of Care Note [code = 82864-0] Goal Plan of Care Note [code = 16173-1] Goal Plan of Care Note [code = 08588-7] Goal Plan of Care Note [code = 05523-7] Goal Plan of Care Note [code = 64175-8] Goal Plan of Care Note [code = 35758-3] Goal Plan of Care Note [code = 49972-1] Goal Plan of Care Note [code = 97505-5] Goal Plan of Care Note [code = 77036-2] Goal Plan of Care Note [code = 42022-7] Goal Plan of Care Note [code = 44379-6] Goal Plan of Care Note [code = 57712-0] Goal Plan of Care Note [code = 07548-7] Goal Plan of Care Note [code = 82724-5] Goal Plan of Care Note [code = 41596-1] Goal Plan of Care Note [code = 70539-9] Goal Plan of Care Note [code = 80890-2] Goal Plan of Care Note [code = 74327-2] Goal Plan of Care Note [code = 54663-6] Goal Plan of Care Note [code = 42330-6] Goal Plan of Care Note [code = 71226-8] Goal Plan of Care Note [code = 27673-8] Goal Plan of Care Note [code = 07415-8] Goal Plan of Care Note [code = 36332-6] Goal Plan of Care Note [code = 86805-7] Goal Plan of Care Note [code = 73938-5] Goal Plan of Care Note [code = 71299-7] Goal Plan of Care Note [code = 59753-4] Goal Plan of Care Note [code = 56366-5] Goal Plan of Care Note [code = 05659-3] Goal Plan of Care Note [code = 15070-7] Goal Plan of Care Note [code = 01119-8] Goal Plan of Care Note [code = 74422-6] Goal Plan of Care Note [code = 17571-5] Goal Plan of Care Note [code = 42097-4] Goal Plan of Care Note [code = 70130-5] Goal Plan of Care Note [code = 34114-6] Goal Plan of Care Note [code = 97563-5] Goal Plan of Care Note [code = 24668-9] Goal Plan of Care Note [code = 78802-5] Goal Plan of Care Note [code = 65317-6] Goal Plan of Care Note [code = 34018-2] Goal Plan of Care Note [code = 54236-3] Goal Plan of Care Note [code = 40982-0] Goal Plan of Care Note [code = 21040-0] Goal Plan of Care Note [code = 38224-0] Goal Plan of Care Note [code = 02441-6] Goal Plan of Care Note [code = 88514-3] Goal Plan of Care Note [code = 16421-1] Goal Plan of Care Note [code = 11031-1] Goal Plan of Care Note [code = 99164-4] Goal Plan of Care Note [code = 76244-6] Goal Plan of Care Note [code = 54650-5] Goal Plan of Care Note [code = 29955-8] Goal Plan of Care Note [code = 06256-2] Goal Plan of Care Note [code = 59964-1] Goal Plan of Care Note [code = 78136-6] Goal Plan of Care Note [code = 25242-0] Goal Plan of Care Note [code = 37624-5] Goal Plan of Care Note [code = 29368-4] Goal Plan of Care Note [code = 17307-6] Goal Plan of Care Note [code = 59044-1] Goal Plan of Care Note [code = 90844-3] Goal Plan of Care Note [code = 02659-2] Goal Plan of Care Note [code = 95753-9] Goal Plan of Care Note [code = 56759-4] Goal Plan of Care Note [code = 17766-8] Goal Plan of Care Note [code = 01006-6] Goal Plan of Care Note [code = 42881-8] Goal Plan of Care Note [code = 25056-0] Goal Plan of Care Note [code = 04109-1] Goal Plan of Care Note [code = 33700-8] Goal Plan of Care Note [code = 04401-0] Goal Plan of Care Note [code = 72632-9] Goal Plan of Care Note [code = 95178-7] Goal Plan of Care Note [code = 34504-2] Goal Plan of Care Note [code = 57216-1] Goal Plan of Care Note [code = 91521-0] Goal Plan of Care Note [code = 93888-3] Goal Plan of Care Note [code = 80442-8] Goal Plan of Care Note [code = 85970-5] Goal Plan of Care Note [code = 15494-3] Goal Plan of Care Note [code = 81485-9] Goal Plan of Care Note [code = 77997-0] Goal Plan of Care Note [code = 76296-4] Goal Plan of Care Note [code = 20495-6] Goal Plan of Care Note [code = 99911-7] Goal Plan of Care Note [code = 71263-9] Goal Plan of Care Note [code = 77296-6] Goal Plan of Care Note [code = 17616-7] Goal Plan of Care Note [code = 53983-7] Goal Plan of Care Note [code = 16170-5] Goal Plan of Care Note [code = 69953-1] Goal Plan of Care Note [code = 71096-2] Goal Plan of Care Note [code = 15426-9] Encounters Start End Encounter Admission Attending Care Care Encounter Source Date/Time Date/Time Type Type Clinicians Facility Department ID 2022-11-08 2022-11-08 Outpatient SFA SFA [id number] 023 Jose 14:10:03 14:10:03 0701 F [place] 2022-09-20 2022-09-20 Outpatient SFA SFA [id number] 023 Jose 13:41:38 13:41:38 0513 F [place] 2022-08-07 2022-08-07 Outpatient SFA SFA [id number] 023 Jose 16:55:08 16:55:08 0330 F [place] 2022-03-03 2022-03-03 Outpatient SFA SFA [id number] 022 Jose 15:47:22 15:47:22 1024 F [place] 2022-01-07 2022-01-07 Outpatient [id number] 00:00:00 00:00:00 Visit [id number] 2021-12-25 2021-12-25 Outpatient [id number] 00:00:00 00:00:00 Visit [id number] [id number] f381a6 2021-12-19 2021-12-19 Outpatient 38g15de4- [id number] a08us7-0 00:00:00 00:00:00 Visit 0i7o-3e15 v7p-0j21-h -i4zi-k18 7eb-h0719v 81os14qx4 b09eb1 2021-11-29 2021-11-29 Outpatient g8nw1vvq- [id number] f7 ld3bru-z 00:00:00 00:00:00 Visit xu51-0q41 p39-9d36-o -o310-721 668-606d7d u7a27b341 97l492 2021-11-25 2021-11-25 Outpatient c7436r65- [id number] e1 186q40-e 00:00:00 00:00:00 Visit eef8-4b44 ef8-4b44-9 -9461-546 461-5467e6 [id number] 76291b 2021-11-12 2021-11-12 Outpatient 60k7h27d- [id number] h9a62w-8 00:00:00 00:00:00 Visit 32j7-902n 5e4-969d-9 -828d-8bb 28d-8bbec0 sq918jg3x 99ae7d 2021-11-07 2021-11-07 [facility] [id number] Univers 08:30:00 08:30:00 SOUMYA gamboa [facility] 2021-09-24 2021-09-25 Emergency X [facility] ERT [id number] Univers 22:32:00 03:49:00 [facility] 2021-09-25 Emergency [facility] [id number] Univers 22:32:00 03:49:00 Michael FREEMAN 350.1.13.10 i ty of [place] [phone] [facility] 084 Branch 2021-08-06 2021-08-06 Telephone [facility] [id number] Univers 00:00:00 00:00:00 Evaristo FREEMAN 350.1.13.10 ity [facility] [place] [facility] [phone] Wi dical [facility] 2021-07-09 2021-07-09 Outpatient R [facility] [id number] Univers 13:00:00 13:00:00 ity [facility] 2021-07-01 2021-07-01 [facility] [id number] Univers 10:30:00 10:30:00 CHERYL wilson [facility] 2021-06-30 2021-06-30 [facility] [id number] Univers 00:00:00 00:00:00 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 350.1.13.10 ity [facility] 4.2.7.2.686 [place] MATERNAL [phone] Med ical & CHILD 107 [facility] [place] [place] 2021-06-10 2021-06-10 Outpatient R NERY [facility] [id number] Univers 15:20:00 15:31:06 EVARISTO arabellacasey o f [facility] 2021-06-10 2021-06-10 Office [facility] [id number] Univers 15:20:00 15:31:06 Visit Evaristo FREEMAN 350.1.13.10 ity [facility] [place].2.[place] [facility] [phone] Wi dical [facility] 2021-06-10 2021-06-10 Orders Doctor JACOBY 1.2.840.114 [id number] Univers 00:00:00 00:00:00 Only Unassigned, THIERNO 350.1.13.10 ity of [place] [facility] 4.2.7.2.686 [place] [phone] [facility] 009 [place] 2021-04-26 2021-04-27 [facility] [id number] Univers 10:18:00 16:12:00 [facility] 2021-04-26 2021-04-27 Outpatient X JEFFREY [facility] JESUS [id number] Univers 10:18:00 16:12:00 [facility] 2021-04-26 2021-04-27 Emergency Mitra Barajas [facility] 1.2.840 .114 [id number] Univers 10:18:00 16:12:00 Jeffrey Charlottefredy F[place] 350.1.13.10 ity [facility] [place] [phone] [facility] 081 [place] 2020-12-13 2020-12-13 Outpatient Josue AG [facility] [id number] Univers 15:00:00 15:09:50 REBEKA chatman [facility] 2020-11-22 2020-11-22 Outpatient Josue AG [facility] [id number] Univers 15:20:00 15:09:34 REBEKA chatman [facility] 2019-01-05 2019-01-05 Emergency Bogdan, [facility] [id number] Univers 22:28:10 23:35:00 Anni Freeman 350.1.13.10 i ty of [place] 4.2.7.2.686 [facility] [phone] [place] [id number] [place] 2018-12-14 2018-12-14 [facility] 1.2.840.114 [id number] Univers 06:51:33 23:59:00 Encounter [place] R SPECIALTY 350.1.13.10 ity of [facility] 4.2.7.2.686 [facility] AT [phone] Wi nadira KAUR 5 [facility] Results Test Description Test Time Test Comments Results Result Comments Source H. PYLORI (BREATH) 2022-03-05 15:23:05 Test Item Value Reference Range Interpretation Comme nts H. PYLORI (BREATH) (test code NEGATIVE NEGATIVE UNLESS OTHERWISE INDICATED, ALL = 97328) TESTING PERFORM ED ATCLINICAL PATHOLOGY LABOR [employer] [address] [place] [address] POT FILLER: RAMIREZ CERON M.D. CLIA NUMBER [id number] CAP ACCREDITATION N O. [id number] CBC W/AUTO DIFF WITH [id number] 05:19:43 Test Item Value Reference Range Interpretation [...] RBCS 0.04 K/UL 0.00-0.11 (test code = 65242) POCT GLUCOSE (AUTOMATED)2021-09-25 08:08:54 Test Item Value Reference Range Interpretation Comments POCT GLU (test code = 4941131147) 102 mg/dL 70-110 Lab Interpretation (test code = Normal 22839-5) [facility]ACK[facility] [id number] 05:03:02 Test Item Value Reference Interpretation Comments Range TROPONIN I (test 0.001 ng/mL See_Comment [Automated code = 5695013416) message] The system which generated this result [...] biotin. Lab Interpretation Normal (test code = 43529-3) [facility]. METABOLIC PANEL (01256)2021-09-25 04:52:19 Test Item Value Reference Range Interpretation Comments NA (test code = 140 mmol/L 135-145 8448957272) K (test code = 4.5 mmol/L 3.5-5.0 3113334132) CL (test code = 103 mmol/L 98-108 6873968747) CO2 TOTAL (test code = 25 mmol/L 23-31 4948277193) AGAP (test code = 2-16 5582793133) BUN (test code = 13 mg/dL 7-23 4645685228) GLUCOSE (test code = 141 mg/dL 70-110 H 8684373570) CREATININE (test code = 0.60 mg/dL 0.50-1.04 9349199841) TOTAL BILI (test code = 0.6 mg/dL 0.1-1.7 0666491217) CALCIUM (test code = 9.4 mg/dL 8.6-10.6 3194973788) T PROTEIN (test code = 8.1 g/dL 6.3-8.2 5239756686) ALBUMIN (test code = 4.7 g/dL 3.5-5.0 5845269404) ALK PHOS (test code = 98 U/L 34-122 3053768161) ALTv (test code = 25 U/L 5-35 1742-6) AST(SGOT) (test code = 27 U/L 13-40 2408135543) eGFR (test code = mL/min/1.73m2 8132418796) MARY (test code = MARY) Association of [...] tests). Lab Interpretation Abnormal (test code = 47271-8) [facility] 04:51:39 Test Item Value Reference Range Interpretation Comments LIPASE (test code = 0481432501) 118 U/L 0-220 Lab Interpretation (test code = Normal 26261-4) [facility] WITH [id number] 04:38:15 Test Item Value Reference Range Interpretation Comments WBC (test code = See_Comment H [Automated 7790-2) message] The system which generated this result transmit alesha reference range : 4.30 - 11.10 10*3/?L. The reference range was not used to interpret this result as normal/abnormal . RBC (test code = See_Comment H [Automated 289-8) message] The system which generated this result [...] RDW-SD (test code = 41.5 fL 39.0-49.9 38020-1) RDW-CV (test code = 12.8 % 12.0-15.5 788-0) PLT (test code = See_Comment [Automated 777-3) message] The system which generated this result transmit alesha reference range : 166 - 358 10*3/ ?L. The reference range was not u sed to interpret th is result as normal/abnormal . MPV (test code = 11.7 fL 9.5-12.9 18457-4) NRBC/100 WBC (test See_Comment [Automat ed code = 1878191234) message] The system which generated this result transmit alesha reference range : 0.0 - 10.0 /100 WBCs. The reference range was not used to interpret this result as normal/abnormal . NRBC x10^3 (test code <0.01 See_Comment [Auto mated = 6175225508) message] The system which generated this result transmit alesha reference range : 10*3/?L. The reference range was not used to interpret this result as normal/abnormal . GRAN MAT (NEUT) % 78.8 % (test code = 770-8) IMM GRAN % (test code 0.30 % = 0352636184) LYMPH % (test code = 14.7 % 736-9) MONO % (test code = 5.0 % 5905-5) EOS % (test code = 0.6 % 713-8) BASO % (test code = 0.6 % 706-2) GRAN MAT x10^3(ANC) 10.01 10*3/uL 1.88-7.09 H (test code = 6084761033) IMM GRAN x10^3 (test 0.04 10*3/uL 0.00-0.06 code = 7095899664) LYMPH x10^3 (test code 1.86 10*3/uL 1.32-3.29 = 731-0) MONO x10^3 (test code 0.63 10*3/uL 0.33-0.92 = 742-7) EOS x10^3 (test code = 0.08 10*3/uL 0.03-0.39 711-2) BASO x10^3 (test code 0.07 10*3/uL 0.01-0.07 = 704-7) Lab Interpretation Abnormal (test code = 73845-5) [facility] REFLEX AUTOIMMUNE AB [id number] 08:39:16 Test Item Value Reference Range Interpretation Comments ANTI-NUCLEAR NEGATIVE NEGATIVE Methodology is Indirect ANTIBODIES (test Immunofluor escent Assay code = 3506) (IFA) with a [employer] system using He p2000 cells (Hep2 cells tra nsfected with SS-A/Ro). HIV 1/2 4TH GEN, RFLX [id number] 03:26:41 Test Item Value Reference Range Interpretation Comments HIV 1/2 4TH GEN, NON-REACTIVE NON-REACTIVE UNLESS OTH ERWISE RFLX CONF (test INDICATED, A LL TESTING code = 3514) PERFORMED [facility] NICAL PATHOLOGY [facility]. [address] [place] [id number] [place] [address] DIRECTOR: RAMIREZ CERON M.D. CLIA NUMBER [id number] CAP ACCREDITATION N O. [id number] [place] [facility] [employer] AB [id number] 00:00:00 Test Item Value Reference Range Interpretation Comments ANTI-NUCLEAR ANTIBODIES (test code = NEGATIVE 3506) [place] RE[employer]LEX [employer]OIMM[employer]E AB [id number] 00:00:00 Test Item Value Reference Range Interpretation Comments ANTI-NUCLEAR ANTIBODIES (test code = NEGATIVE 3506) HIV AB/AG COMBO RFLX [id number] 00:00:00 Test Item Value Reference Range Interpretation Comments HIV 1/2 4TH GEN, RFLX CONF (test NON-REACTIVE code = 3514) HIV AB/AG COMBO RFLX [id number] 00:00:00 Test Item Value Reference Range Interpretation Comments HIV 1/2 4TH GEN, RFLX CONF (test NON-REACTIVE code = 3514) [place] RE[employer]IM[employer] AB [id number] 00:00:00 Test Item Value Reference Range Interpretation Comments ANTI-NUCLEAR ANTIBODIES (test code = NEGATIVE 3506) [place] [employer] AB [id number] 00:00:00 Test Item Value Reference Range Interpretation Comments ANTI-NUCLEAR ANTIBODIES (test code = NEGATIVE 3506) HIV AB/AG COMBO RFLX [id number] 00:00:00 Test Item Value Reference Range Interpretation Comments HIV 1/2 4TH GEN, RFLX CONF (test NON-REACTIVE code = 3514) HIV AB/AG COMBO RFLX [id number] 00:00:00 Test Item Value Reference Range Interpretation Comments HIV 1/2 4TH GEN, RFLX CONF (test NON-REACTIVE code = 3514) [place] RE[employer]LEX [employer]OIMMUNE AB [id number] 00:00:00 Test Item Value Reference Range Interpretation Comments ANTI-NUCLEAR ANTIBODIES (test code = NEGATIVE 3506) [place] REFLEX AUTOIMMUNE AB [id number] 00:00:00 Test Item Value Reference Range Interpretation Comments ANTI-NUCLEAR ANTIBODIES (test code = NEGATIVE 3506) HIV AB/AG COMBO RFLX [id number] 00:00:00 Test Item Value Reference Range Interpretation Comments HIV 1/2 4TH GEN, RFLX CONF (test NON-REACTIVE code = 3514) HIV AB/AG COMBO RFLX [id number] 00:00:00 Test Item Value Reference Range Interpretation Comments HIV 1/2 4TH GEN, RFLX CONF (test NON-REACTIVE code = 3514) [place] REFLEX AUTOIMMUNE AB [id number] 00:00:00 Test Item Value Reference Range Interpretation Comments ANTI-NUCLEAR ANTIBODIES (test code = NEGATIVE 3506) HIV AB/AG COMBO RFLX [id number] 00:00:00 Test Item Value Reference Range Interpretation Comments HIV 1/2 4TH GEN, RFLX CONF (test NON-REACTIVE code = 3514) [place] REFLEX AUTOIMMUNE AB [id number] 00:00:00 Test Item Value Reference Range Interpretation Comments ANTI-NUCLEAR ANTIBODIES (test code = NEGATIVE 3506) HIV AB/AG COMBO RFLX [id number] 00:00:00 Test Item Value Reference Range Interpretation Comments HIV 1/2 4TH GEN, RFLX CONF (test NON-REACTIVE code = 3514) [place] REFLEX AUTOIMMUNE AB [id number] 00:00:00 Test Item Value Reference Range Interpretation Comments ANTI-NUCLEAR ANTIBODIES (test code = NEGATIVE 3506) HIV AB/AG COMBO RFLX [id number] 00:00:00 Test Item Value Reference Range Interpretation Comments HIV 1/2 4TH GEN, RFLX CONF (test NON-REACTIVE code = 3514) TSH, THIRD [id number] 02:23:43 Test Item Value Reference Range Interpretation Comments TSH, THIRD GENERATION (test code 3.790 UIU/ML 0.400-4.100 = 2821) RHEUMATOID FACTOR, [id number] 02:15:22 Test Item Value Reference Range Interpretation Comments RHEUMATOID FACTOR, QUANT (test code <10 IU/ML <14 = 3502) COMPREHENSIVE METABOLIC [id number] 02:15:07 Test Item Value Reference Range Interpretation Comments GLUCOSE (test code = 98 MG/DL 70-99 2216) BUN (test code = 9 MG/DL 6-20 2207) CREATININE (test 0.61 MG/DL 0.60-1.30 code = 2214) eGFR (2020 CKD-EPI) 105 >60 (test code = 19039) ML/MIN/1.73 CALC BUN/CREAT (test 15 RATIO 6-28 code = 2235) SODIUM (test code = 142 MEQ/L 675-407 7368) POTASSIUM (test code 4.4 MEQ/L 3.5-5.4 = 2227) CHLORIDE (test code 103 MEQ/L 95-107 = 221) CARBON DIOXIDE (test 20 MEQ/L 19-31 code = 2206) CALCIUM (test code = 9.7 MG/DL 8.5-10.5 2208) PROTEIN, TOTAL (test 7.5 G/DL 6.1-8.3 code = 2229) ALBUMIN (test code = 4.3 G/DL 3.5-5.2 [...] (test code = 25 U/L 5-40 2218) LIPID [id number] 02:15:07 Test Item Value Reference Range Interpretation [...] MOREINFORMATION , SEE CLIENT ANNOUNCE MENT AT [email or web address] RISK RATIO LDL/HDL 2.81 RATIO <3.22 (test code = 2238) COMPREHENSIVE METABOLIC [id number] 00:00:00 Test Item Value Reference Range Interpretation Comments GLUCOSE (test code = 2217) 98 MG/DL BUN (test code = 2208) 9 MG/DL CREATININE (test code = 2214) 0.61 MG/DL eGFR (2020 CKD-EPI) (test 105 ML/MIN/1.73 code = 93725) CALC BUN/CREAT (test code = 15 RATIO [...] code = 2219) 25 U/L RHEUMATOID FACTOR, [id number] 00:00:00 Test Item Value Reference Range Interpretation Comments RHEUMATOID FACTOR, QUANT (test code <10 IU/ML = 3502) RHEUMATOID FACTOR, [id number] 00:00:00 Test Item Value Reference Range Interpretation Comments RHEUMATOID FACTOR, QUANT (test code <10 IU/ML = 3502) RHEUMATOID FACTOR, [id number] 00:00:00 Test Item Value Reference Range Interpretation Comments RHEUMATOID FACTOR, QUANT (test code <10 IU/ML = 3502) [id number] 00:00:00 Test Item Value Reference Range Interpretation Comments TSH, THIRD GENERATION (test code 3.790 UIU/ML = 2821) [id number] 00:00:00 Test Item Value Reference Range Interpretation Comments TSH, THIRD GENERATION (test code 3.790 UIU/ML = 2821) [id number] 00:00:00 Test Item Value Reference Range Interpretation Comments TSH, THIRD GENERATION (test code 3.790 UIU/ML = 2821) LIPID [id number] 00:00:00 Test Item Value Reference Range Interpretation Comments CHOLESTEROL (test code = 2210) 215 MG/DL TRIGLYCERIDES (test code = 2232) 187 MG/DL HDL CHOLESTEROL (test code = 2220) 48 MG/DL CALC LDL CHOL (test code = 2237) 135 MG/DL RISK RATIO LDL/HDL (test code = 2.81 RATIO 2238) LIPID [id number] 00:00:00 Test Item Value Reference Range Interpretation Comments CHOLESTEROL (test code = 2210) 215 MG/DL TRIGLYCERIDES (test code = 2232) 187 MG/DL HDL CHOLESTEROL (test code = 2220) 48 MG/DL CALC LDL CHOL (test code = 2237) 135 MG/DL RISK RATIO LDL/HDL (test code = 2.81 RATIO 2238) COMPREHENSIVE METABOLIC [id number] 00:00:00 Test Item Value Reference Range Interpretation Comments GLUCOSE (test code = 2217) 98 MG/DL BUN (test code = 2208) 9 MG/DL CREATININE (test code = 2214) 0.61 MG/DL eGFR (2020 CKD-EPI) (test 105 ML/MIN/1.73 code = 93768) CALC BUN/CREAT (test code = 15 RATIO [...] code = 2219) 25 U/L COMPREHENSIVE METABOLIC [id number] 00:00:00 Test Item Value Reference Range Interpretation Comments GLUCOSE (test code = 2217) 98 MG/DL BUN (test code = 2208) 9 MG/DL CREATININE (test code = 2214) 0.61 MG/DL eGFR (2020 CKD-EPI) (test 105 ML/MIN/1.73 code = 58766) CALC BUN/CREAT (test code = 15 RATIO [...] code = 2219) 25 U/L RHEUMATOID FACTOR, [id number] 00:00:00 Test Item Value Reference Range Interpretation Comments RHEUMATOID FACTOR, QUANT (test code <10 IU/ML = 3502) RHEUMATOID FACTOR, [id number] 00:00:00 Test Item Value Reference Range Interpretation Comments RHEUMATOID FACTOR, QUANT (test code <10 IU/ML = 3502) RHEUMATOID FACTOR, [id number] 00:00:00 Test Item Value Reference Range Interpretation Comments RHEUMATOID FACTOR, QUANT (test code <10 IU/ML = 3502) [id number] 00:00:00 Test Item Value Reference Range Interpretation Comments TSH, THIRD GENERATION (test code 3.790 UIU/ML = 2821) [id number] 00:00:00 Test Item Value Reference Range Interpretation Comments TSH, THIRD GENERATION (test code 3.790 UIU/ML = 2821) [id number] 00:00:00 Test Item Value Reference Range Interpretation Comments TSH, THIRD GENERATION (test code 3.790 UIU/ML = 2821) LIPID [id number] 00:00:00 Test Item Value Reference Range Interpretation Comments CHOLESTEROL (test code = 2210) 215 MG/DL TRIGLYCERIDES (test code = 2232) 187 MG/DL HDL CHOLESTEROL (test code = 2220) 48 MG/DL CALC LDL CHOL (test code = 2237) 135 MG/DL RISK RATIO LDL/HDL (test code = 2.81 RATIO 2238) LIPID [id number] 00:00:00 Test Item Value Reference Range Interpretation Comments CHOLESTEROL (test code = 2210) 215 MG/DL TRIGLYCERIDES (test code = 2232) 187 MG/DL HDL CHOLESTEROL (test code = 2220) 48 MG/DL CALC LDL CHOL (test code = 2237) 135 MG/DL RISK RATIO LDL/HDL (test code = 2.81 RATIO 2238) COMPREHENSIVE METABOLIC [id number] 00:00:00 Test Item Value Reference Range Interpretation Comments GLUCOSE (test code = 2217) 98 MG/DL BUN (test code = 2208) 9 MG/DL CREATININE (test code = 2214) 0.61 MG/DL eGFR (2020 CKD-EPI) (test 105 ML/MIN/1.73 code = 60334) CALC BUN/CREAT (test code = 15 RATIO [...] code = 2219) 25 U/L COMPREHENSIVE METABOLIC [id number] 00:00:00 Test Item Value Reference Range Interpretation Comments GLUCOSE (test code = 2217) 98 MG/DL BUN (test code = 2208) 9 MG/DL CREATININE (test code = 2214) 0.61 MG/DL eGFR (2020 CKD-EPI) (test 105 ML/MIN/1.73 code = 50123) CALC BUN/CREAT (test code = 15 RATIO [...] code = 2219) 25 U/L RHEUMATOID FACTOR, [id number] 00:00:00 Test Item Value Reference Range Interpretation Comments RHEUMATOID FACTOR, QUANT (test code <10 IU/ML = 3502) RHEUMATOID FACTOR, [id number] 00:00:00 Test Item Value Reference Range Interpretation Comments RHEUMATOID FACTOR, QUANT (test code <10 IU/ML = 3502) RHEUMATOID FACTOR, [id number] 00:00:00 Test Item Value Reference Range Interpretation Comments RHEUMATOID FACTOR, QUANT (test code <10 IU/ML = 3502) [id number] 00:00:00 Test Item Value Reference Range Interpretation Comments TSH, THIRD GENERATION (test code 3.790 UIU/ML = 2821) [id number] 00:00:00 Test Item Value Reference Range Interpretation Comments TSH, THIRD GENERATION (test code 3.790 UIU/ML = 2821) [id number] 00:00:00 Test Item Value Reference Range Interpretation Comments TSH, THIRD GENERATION (test code 3.790 UIU/ML = 2821) LIPID [id number] 00:00:00 Test Item Value Reference Range Interpretation Comments CHOLESTEROL (test code = 2210) 215 MG/DL TRIGLYCERIDES (test code = 2232) 187 MG/DL HDL CHOLESTEROL (test code = 2220) 48 MG/DL CALC LDL CHOL (test code = 2237) 135 MG/DL RISK RATIO LDL/HDL (test code = 2.81 RATIO 2238) COMPREHENSIVE METABOLIC [id number] 00:00:00 Test Item Value Reference Range Interpretation Comments GLUCOSE (test code = 2217) 98 MG/DL BUN (test code = 2208) 9 MG/DL CREATININE (test code = 2214) 0.61 MG/DL eGFR (2020 CKD-EPI) (test 105 ML/MIN/1.73 code = 90424) CALC BUN/CREAT (test code = 15 RATIO [...] code = 2219) 25 U/L RHEUMATOID FACTOR, [id number] 00:00:00 Test Item Value Reference Range Interpretation Comments RHEUMATOID FACTOR, QUANT (test code <10 IU/ML = 3502) RHEUMATOID FACTOR, [id number] 00:00:00 Test Item Value Reference Range Interpretation Comments RHEUMATOID FACTOR, QUANT (test code <10 IU/ML = 3502) [id number] 00:00:00 Test Item Value Reference Range Interpretation Comments TSH, THIRD GENERATION (test code 3.790 UIU/ML = 2821) [id number] 00:00:00 Test Item Value Reference Range Interpretation Comments TSH, THIRD GENERATION (test code 3.790 UIU/ML = 2821) LIPID [id number] 00:00:00 Test Item Value Reference Range Interpretation Comments CHOLESTEROL (test code = 2210) 215 MG/DL TRIGLYCERIDES (test code = 2232) 187 MG/DL HDL CHOLESTEROL (test code = 2220) 48 MG/DL CALC LDL CHOL (test code = 2237) 135 MG/DL RISK RATIO LDL/HDL (test code = 2.81 RATIO 2238) COMPREHENSIVE METABOLIC [id number] 00:00:00 Test Item Value Reference Range Interpretation Comments GLUCOSE (test code = 2217) 98 MG/DL BUN (test code = 2208) 9 MG/DL CREATININE (test code = 2214) 0.61 MG/DL eGFR (2020 CKD-EPI) (test 105 ML/MIN/1.73 code = 66132) CALC BUN/CREAT (test code = 15 RATIO [...] code = 2219) 25 U/L RHEUMATOID FACTOR, [id number] 00:00:00 Test Item Value Reference Range Interpretation Comments RHEUMATOID FACTOR, QUANT (test code <10 IU/ML = 3502) RHEUMATOID FACTOR, [id number] 00:00:00 Test Item Value Reference Range Interpretation Comments RHEUMATOID FACTOR, QUANT (test code <10 IU/ML = 3502) [id number] 00:00:00 Test Item Value Reference Range Interpretation Comments TSH, THIRD GENERATION (test code 3.790 UIU/ML = 2821) [id number] 00:00:00 Test Item Value Reference Range Interpretation Comments TSH, THIRD GENERATION (test code 3.790 UIU/ML = 2821) LIPID [id number] 00:00:00 Test Item Value Reference Range Interpretation Comments CHOLESTEROL (test code = 2210) 215 MG/DL TRIGLYCERIDES (test code = 2232) 187 MG/DL HDL CHOLESTEROL (test code = 2220) 48 MG/DL CALC LDL CHOL (test code = 2237) 135 MG/DL RISK RATIO LDL/HDL (test code = 2.81 RATIO 2238) COMPREHENSIVE METABOLIC [id number] 00:00:00 Test Item Value Reference Range Interpretation Comments GLUCOSE (test code = 2217) 98 MG/DL BUN (test code = 2208) 9 MG/DL CREATININE (test code = 2214) 0.61 MG/DL eGFR (2020 CKD-EPI) (test 105 ML/MIN/1.73 code = 51956) CALC BUN/CREAT (test code = 15 RATIO [...] code = 2219) 25 U/L RHEUMATOID FACTOR, [id number] 00:00:00 Test Item Value Reference Range Interpretation Comments RHEUMATOID FACTOR, QUANT (test code <10 IU/ML = 3502) RHEUMATOID FACTOR, [id number] 00:00:00 Test Item Value Reference Range Interpretation Comments RHEUMATOID FACTOR, QUANT (test code <10 IU/ML = 3502) [id number] 00:00:00 Test Item Value Reference Range Interpretation Comments TSH, THIRD GENERATION (test code 3.790 UIU/ML = 2821) [id number] 00:00:00 Test Item Value Reference Range Interpretation Comments TSH, THIRD GENERATION (test code 3.790 UIU/ML = 2821) LIPID [id number] 00:00:00 Test Item Value Reference Range Interpretation Comments CHOLESTEROL (test code = 2210) 215 MG/DL TRIGLYCERIDES (test code = 2232) 187 MG/DL HDL CHOLESTEROL (test code = 2220) 48 MG/DL CALC LDL CHOL (test code = 2237) 135 MG/DL RISK RATIO LDL/HDL (test code = 2.81 RATIO 2238) LIPID [id number] 00:00:00 Test Item Value Reference Range Interpretation Comments CHOLESTEROL (test code = 2210) 215 MG/DL TRIGLYCERIDES (test code = 2232) 187 MG/DL HDL CHOLESTEROL (test code = 2220) 48 MG/DL CALC LDL CHOL (test code = 2237) 135 MG/DL RISK RATIO LDL/HDL (test code = 2.81 RATIO 2238) COMPREHENSIVE METABOLIC [id number] 00:00:00 Test Item Value Reference Range Interpretation Comments GLUCOSE (test code = 2217) 98 MG/DL BUN (test code = 2208) 9 MG/DL CREATININE (test code = 2214) 0.61 MG/DL eGFR (2020 CKD-EPI) (test 105 ML/MIN/1.73 code = 15971) CALC BUN/CREAT (test code = 15 RATIO [...] 2219) 25 U/L CBC W/AUTO DIFF WITH [id number] 04:28:25 Test Item Value Reference Range Interpretation [...] RBCS 0.00 K/UL 0.00-0.11 (test code = 05816) CBC W/AUTO [id number] 00:00:00 Test Item Value Reference Range Interpretation [...] NUCLEATED RBCS (test code = 0.00 K/UL 16445) CBC W/AUTO [id number] 00:00:00 Test Item Value Reference Range Interpretation [...] NUCLEATED RBCS (test code = 0.00 K/UL 00178) CBC W/AUTO [id number] 00:00:00 Test Item Value Reference Range Interpretation [...] NUCLEATED RBCS (test code = 0.00 K/UL 64435) CBC W/AUTO [id number] 00:00:00 Test Item Value Reference Range Interpretation [...] NUCLEATED RBCS (test code = 0.00 K/UL 09703) CBC W/AUTO [id number] 00:00:00 Test Item Value Reference Range Interpretation [...] NUCLEATED RBCS (test code = 0.00 K/UL 11558) CBC W/AUTO [id number] 00:00:00 Test Item Value Reference Range Interpretation [...] NUCLEATED RBCS (test code = 0.00 K/UL 20987) CBC W/AUTO [id number] 00:00:00 Test Item Value Reference Range Interpretation [...] NUCLEATED RBCS (test code = 0.00 K/UL 22091) CBC W/AUTO [id number] 00:00:00 Test Item Value Reference Range Interpretation [...] NUCLEATED RBCS (test code = 0.00 K/UL 76711) CBC W/AUTO [id number] 00:00:00 Test Item Value Reference Range Interpretation [...] NUCLEATED RBCS (test code = 0.00 K/UL 27916) CBC W/AUTO [id number] 00:00:00 Test Item Value Reference Range Interpretation [...] NUCLEATED RBCS (test code = 0.00 K/UL 80116) CBC W/AUTO [id number] 00:00:00 Test Item Value Reference Range Interpretation [...] NUCLEATED RBCS (test code = 0.00 K/UL 48040) CBC W/AUTO [id number] 00:00:00 Test Item Value Reference Range Interpretation [...] NUCLEATED RBCS (test code = 0.00 K/UL 69506) CBC W/AUTO [id number] 00:00:00 Test Item Value Reference Range Interpretation [...] NUCLEATED RBCS (test code = 0.00 K/UL 11907) CBC W/AUTO [id number] 00:00:00 Test Item Value Reference Range Interpretation [...] NUCLEATED RBCS (test code = 0.00 K/UL 88505) CBC W/AUTO [id number] 00:00:00 Test Item Value Reference Range Interpretation [...] NUCLEATED RBCS (test code = 0.00 K/UL 24935) [id number] 00:00:00 Test Item Value Reference Range Interpretation Comments LIPASE (test code = 2057) 26 U/L [id number] 00:00:00 Test Item Value Reference Range Interpretation Comments LIPASE (test code = 2057) 26 U/L [id number] 00:00:00 Test Item Value Reference Range Interpretation Comments LIPASE (test code = 2057) 26 U/L CBC W/AUTO [id number] 00:00:00 Test Item Value Reference Range Interpretation [...] NUCLEATED RBCS (test code = 0.00 K/UL 18877) CBC W/AUTO [id number] 00:00:00 Test Item Value Reference Range Interpretation [...] NUCLEATED RBCS (test code = 0.00 K/UL 74490) CBC W/AUTO [id number] 00:00:00 Test Item Value Reference Range Interpretation [...] NUCLEATED RBCS (test code = 0.00 K/UL 89118) COMPREHENSIVE METABOLIC [id number] 00:00:00 Test Item Value Reference Range Interpretation Comments GLUCOSE (test code = 2217) 93 MG/DL BUN (test code = 2208) 9 MG/DL CREATININE (test code = 2214) 0.63 MG/DL eGFR AMER. (test code 117 ML/MIN/1.73 = 42511) eGFR NON- AMER. (test 101 ML/MIN/1.73 code = 61905) CALC BUN/CREAT (test code = 14 RATIO [...] code = 2219) 30 U/L COMPREHENSIVE METABOLIC [id number] 00:00:00 Test Item Value Reference Range Interpretation Comments GLUCOSE (test code = 2217) 93 MG/DL BUN (test code = 2208) 9 MG/DL CREATININE (test code = 2214) 0.63 MG/DL eGFR AMER. (test code 117 ML/MIN/1.73 = 85809) eGFR NON- AMER. (test 101 ML/MIN/1.73 code = 79442) CALC BUN/CREAT (test code = 14 RATIO [...] ALT (test code = 2219) 30 U/L [id number] 00:00:00 Test Item Value Reference Range Interpretation Comments AMYLASE (test code = 2205) 58 U/L [id number] 00:00:00 Test Item Value Reference Range Interpretation Comments AMYLASE (test code = 2205) 58 U/L [id number] 00:00:00 Test Item Value Reference Range Interpretation Comments LIPASE (test code = 2057) 26 U/L [id number] 00:00:00 Test Item Value Reference Range Interpretation Comments LIPASE (test code = 2057) 26 U/L [id number] 00:00:00 Test Item Value Reference Range Interpretation Comments LIPASE (test code = 2057) 26 U/L CBC W/AUTO [id number] 00:00:00 Test Item Value Reference Range Interpretation [...] NUCLEATED RBCS (test code = 0.00 K/UL 21747) CBC W/AUTO [id number] 00:00:00 Test Item Value Reference Range Interpretation [...] NUCLEATED RBCS (test code = 0.00 K/UL 92277) CBC W/AUTO [id number] 00:00:00 Test Item Value Reference Range Interpretation [...] NUCLEATED RBCS (test code = 0.00 K/UL 70457) CBC W/AUTO [id number] 00:00:00 Test Item Value Reference Range Interpretation [...] NUCLEATED RBCS (test code = 0.00 K/UL 11661) CBC W/AUTO [id number] 00:00:00 Test Item Value Reference Range Interpretation [...] NUCLEATED RBCS (test code = 0.00 K/UL 58109) COMPREHENSIVE METABOLIC [id number] 00:00:00 Test Item Value Reference Range Interpretation Comments GLUCOSE (test code = 2217) 93 MG/DL BUN (test code = 2208) 9 MG/DL CREATININE (test code = 2214) 0.63 MG/DL eGFR AMER. (test code 117 ML/MIN/1.73 = 62499) eGFR NON- AMER. (test 101 ML/MIN/1.73 code = 13513) CALC BUN/CREAT (test code = 14 RATIO [...] code = 2219) 30 U/L COMPREHENSIVE METABOLIC [id number] 00:00:00 Test Item Value Reference Range Interpretation Comments GLUCOSE (test code = 2217) 93 MG/DL BUN (test code = 2208) 9 MG/DL CREATININE (test code = 2214) 0.63 MG/DL eGFR AMER. (test code 117 ML/MIN/1.73 = 42708) eGFR NON- AMER. (test 101 ML/MIN/1.73 code = 65563) CALC BUN/CREAT (test code = 14 RATIO [...] ALT (test code = 2219) 30 U/L [id number] 00:00:00 Test Item Value Reference Range Interpretation Comments AMYLASE (test code = 2205) 58 U/L [id number] 00:00:00 Test Item Value Reference Range Interpretation Comments AMYLASE (test code = 2205) 58 U/L [id number] 00:00:00 Test Item Value Reference Range Interpretation Comments LIPASE (test code = 2058) 26 U/L [id number] 00:00:00 Test Item Value Reference Range Interpretation Comments LIPASE (test code = 2058) 26 U/L [id number] 00:00:00 Test Item Value Reference Range Interpretation Comments LIPASE (test code = 2058) 26 U/L COMPREHENSIVE METABOLIC [id number] 00:00:00 Test Item Value Reference Range Interpretation Comments GLUCOSE (test code = 2217) 93 MG/DL BUN (test code = 2208) 9 MG/DL CREATININE (test code = 2214) 0.63 MG/DL eGFR AMER. (test code 117 ML/MIN/1.73 = 80180) eGFR NON- AMER. (test 101 ML/MIN/1.73 code = 49499) CALC BUN/CREAT (test code = 14 RATIO [...] 2218) 26 U/L ALT (test code = 221) 30 U/L [id number] 00:00:00 Test Item Value Reference Range Interpretation Comments AMYLASE (test code = 2204) 58 U/L [id number] 00:00:00 Test Item Value Reference Range Interpretation Comments LIPASE (test code = 2057) 26 U/L [id number] 00:00:00 Test Item Value Reference Range Interpretation Comments LIPASE (test code = 8) 26 U/L CBC W/AUTO [id number] 00:00:00 Test Item Value Reference Range Interpretation [...] NUCLEATED RBCS (test code = 0.00 K/UL 93279) CBC W/AUTO [id number] 00:00:00 Test Item Value Reference Range Interpretation [...] NUCLEATED RBCS (test code = 0.00 K/UL 61554) COMPREHENSIVE METABOLIC [id number] 00:00:00 Test Item Value Reference Range Interpretation Comments GLUCOSE (test code = 2217) 93 MG/DL BUN (test code = 2208) 9 MG/DL CREATININE (test code = 2214) 0.63 MG/DL eGFR AMER. (test code 117 ML/MIN/1.73 = 13269) eGFR NON- AMER. (test 101 ML/MIN/1.73 code = 64763) CALC BUN/CREAT (test code = 14 RATIO [...] ALT (test code = 2219) 30 U/L [id number] 00:00:00 Test Item Value Reference Range Interpretation Comments AMYLASE (test code = 2205) 58 U/L [id number] 00:00:00 Test Item Value Reference Range Interpretation Comments LIPASE (test code = 2057) 26 U/L [id number] 00:00:00 Test Item Value Reference Range Interpretation Comments LIPASE (test code = 2057) 26 U/L CBC W/AUTO [id number] 00:00:00 Test Item Value Reference Range Interpretation [...] NUCLEATED RBCS (test code = 0.00 K/UL 73676) CBC W/AUTO [id number] 00:00:00 Test Item Value Reference Range Interpretation [...] NUCLEATED RBCS (test code = 0.00 K/UL 53425) COMPREHENSIVE METABOLIC [id number] 00:00:00 Test Item Value Reference Range Interpretation Comments GLUCOSE (test code = 2217) 93 MG/DL BUN (test code = 2208) 9 MG/DL CREATININE (test code = 2214) 0.63 MG/DL eGFR AMER. (test code 117 ML/MIN/1.73 = 66332) eGFR NON- AMER. (test 101 ML/MIN/1.73 code = 71455) CALC BUN/CREAT (test code = 14 RATIO [...] ALT (test code = 2219) 30 U/L [id number] 00:00:00 Test Item Value Reference Range Interpretation Comments AMYLASE (test code = 2205) 58 U/L [id number] 00:00:00 Test Item Value Reference Range Interpretation Comments LIPASE (test code = 2057) 26 U/L [id number] 00:00:00 Test Item Value Reference Range Interpretation Comments LIPASE (test code = 2057) 26 U/L CBC W/AUTO [id number] 00:00:00 Test Item Value Reference Range Interpretation [...] NUCLEATED RBCS (test code = 0.00 K/UL 09885) CBC W/AUTO [id number] 00:00:00 Test Item Value Reference Range Interpretation [...] NUCLEATED RBCS (test code = 0.00 K/UL 67530) CBC W/AUTO [id number] 00:00:00 Test Item Value Reference Range Interpretation [...] NUCLEATED RBCS (test code = 0.00 K/UL 32893) COMPREHENSIVE METABOLIC [id number] 00:00:00 Test Item Value Reference Range Interpretation Comments GLUCOSE (test code = 2217) 93 MG/DL BUN (test code = 2208) 9 MG/DL CREATININE (test code = 2214) 0.63 MG/DL eGFR AMER. (test code 117 ML/MIN/1.73 = 67735) eGFR NON- AMER. (test 101 ML/MIN/1.73 code = 47842) CALC BUN/CREAT (test code = 14 RATIO [...] code = 2219) 30 U/L COMPREHENSIVE METABOLIC [id number] 00:00:00 Test Item Value Reference Range Interpretation Comments GLUCOSE (test code = 2217) 93 MG/DL BUN (test code = 2208) 9 MG/DL CREATININE (test code = 2214) 0.63 MG/DL eGFR AMER. (test code 117 ML/MIN/1.73 = 54306) eGFR NON- AMER. (test 101 ML/MIN/1.73 code = 35339) CALC BUN/CREAT (test code = 14 RATIO [...] ALT (test code = 2219) 30 U/L [id number] 00:00:00 Test Item Value Reference Range Interpretation Comments AMYLASE (test code = 2205) 58 U/L [id number] 00:00:00 Test Item Value Reference Range Interpretation Comments AMYLASE (test code = 2205) 58 U/L SARS-CoV-2 (COVID-19) by RT-PCR (HIGH RISK)2020-12-27 00:00:00 Test Item Value Reference Range Interpretation Comments SARS-CoV-2 INTERPRETATION (test NEGATIVE code = 74348) SOURCE (test code = 79183) NOT SPECIFIED SARS-CoV-2 (COVID-19) by RT-PCR (HIGH RISK)2020-12-27 00:00:00 Test Item Value Reference Range Interpretation Comments SARS-CoV-2 INTERPRETATION (test NEGATIVE code = 96083) SOURCE (test code = 49929) NOT SPECIFIED SARS-CoV-2 (COVID-19) by RT-PCR (HIGH RISK)2020-12-27 00:00:00 Test Item Value Reference Range Interpretation Comments SARS-CoV-2 INTERPRETATION (test NEGATIVE code = 95367) SOURCE (test code = 52660) NOT SPECIFIED SARS-CoV-2 (COVID-19) by RT-PCR (HIGH RISK)2020-12-27 00:00:00 Test Item Value Reference Range Interpretation Comments SARS-CoV-2 INTERPRETATION (test NEGATIVE code = 30529) SOURCE (test code = 95111) NOT SPECIFIED SARS-CoV-2 (COVID-19) by RT-PCR (HIGH RISK)2020-12-27 00:00:00 Test Item Value Reference Range Interpretation Comments SARS-CoV-2 INTERPRETATION (test NEGATIVE code = 28813) SOURCE (test code = 38958) NOT SPECIFIED SARS-CoV-2 (COVID-19) by RT-PCR (HIGH RISK)2020-12-27 00:00:00 Test Item Value Reference Range Interpretation Comments SARS-CoV-2 INTERPRETATION (test NEGATIVE code = 51110) SOURCE (test code = 45409) NOT SPECIFIED SARS-CoV-2 (COVID-19) by RT-PCR (HIGH RISK)2020-12-27 00:00:00 Test Item Value Reference Range Interpretation Comments SARS-CoV-2 INTERPRETATION (test NEGATIVE code = 61945) SOURCE (test code = 12823) NOT SPECIFIED SARS-CoV-2 (COVID-19) by RT-PCR (HIGH RISK)2020-12-27 00:00:00 Test Item Value Reference Range Interpretation Comments SARS-CoV-2 INTERPRETATION (test NEGATIVE code = 29708) SOURCE (test code = 10419) NOT SPECIFIED SARS-CoV-2 (COVID-19) by RT-PCR (HIGH RISK)2020-12-27 00:00:00 Test Item Value Reference Range Interpretation Comments SARS-CoV-2 INTERPRETATION (test NEGATIVE code = 16880) SOURCE (test code = 90634) NOT SPECIFIED RHEUMATOID FACTOR, [id number] 00:00:00 Test Item Value Reference Range Interpretation Comments RHEUMATOID FACTOR, QUANT (test code <10 IU/ML = 3502) RHEUMATOID FACTOR, [id number] 00:00:00 Test Item Value Reference Range Interpretation Comments RHEUMATOID FACTOR, QUANT (test code <10 IU/ML = 3502) RHEUMATOID FACTOR, [id number] 00:00:00 Test Item Value Reference Range Interpretation Comments RHEUMATOID FACTOR, QUANT (test code <10 IU/ML = 3502) MANSOOR (ANTI-NUCLEAR AB) WITH REFLEX [id number] 00:00:00 Test Item Value Reference Range Interpretation Comments ANTI-NUCLEAR ANTIBODIES (test code = NEGATIVE 3506) MANSOOR (ANTI-NUCLEAR AB) WITH REFLEX [id number] 00:00:00 Test Item Value Reference Range Interpretation Comments ANTI-NUCLEAR ANTIBODIES (test code = NEGATIVE 3506) CCP [id number] 00:00:00 Test Item Value Reference Range Interpretation Comments CCP IgG (test code = 57973) <0.5 U/ML CCP [id number] 00:00:00 Test Item Value Reference Range Interpretation Comments CCP IgG (test code = 04955) <0.5 U/ML CCP [id number] 00:00:00 Test Item Value Reference Range Interpretation Comments CCP IgG (test code = 10247) <0.5 U/ML CBC W/AUTO [id number] 00:00:00 Test Item Value Reference Range Interpretation [...] code = 1015) 192 K/UL CBC W/AUTO [id number] 00:00:00 Test Item Value Reference Range Interpretation [...] code = 1015) 192 K/UL CBC W/AUTO [id number] 00:00:00 Test Item Value Reference Range Interpretation [...] COUNT (test code = 1015) 192 K/UL [id number] 00:00:00 Test Item Value Reference Range Interpretation Comments TSH, THIRD GENERATION (test code 2.790 UIU/ML = 2821) [id number] 00:00:00 Test Item Value Reference Range Interpretation Comments TSH, THIRD GENERATION (test code 2.790 UIU/ML = 2821) [id number] 00:00:00 Test Item Value Reference Range Interpretation Comments TSH, THIRD GENERATION (test code 2.790 UIU/ML = 2821) COMPREHENSIVE METABOLIC [id number] 00:00:00 Test Item Value Reference Range Interpretation Comments GLUCOSE (test code = 2217) 113 MG/DL BUN (test code = 2208) 12 MG/DL CREATININE (test code = 2214) 0.64 MG/DL eGFR AMER. (test code 117 ML/MIN/1.73 = 18934) eGFR NON- AMER. (test 101 ML/MIN/1.73 code = 34535) CALC BUN/CREAT (test code = 19 RATIO 2235) SODIUM (test code = 2231) 141 MEQ/L POTASSIUM (test code = 2228) 4.3 MEQ/L CHLORIDE (test code = 2215) 104 MEQ/L CARBON DIOXIDE (test code = 25 MEQ/L 6) CALCIUM (test code = 2209) 9.5 MG/DL [...] code = 2219) 29 U/L COMPREHENSIVE METABOLIC [id number] 00:00:00 Test Item Value Reference Range Interpretation Comments GLUCOSE (test code = 2217) 113 MG/DL BUN (test code = 2208) 12 MG/DL CREATININE (test code = 2214) 0.64 MG/DL eGFR AMER. (test code 117 ML/MIN/1.73 = 82397) eGFR NON- AMER. (test 101 ML/MIN/1.73 code = 64202) CALC BUN/CREAT (test code = 19 RATIO [...] (test code = 2219) 29 U/L LIPID [id number] 00:00:00 Test Item Value Reference Range Interpretation Comments CHOLESTEROL (test code = 2210) 225 MG/DL TRIGLYCERIDES (test code = 2232) 196 MG/DL HDL CHOLESTEROL (test code = 2220) 50 MG/DL CALC LDL CHOL (test code = 2237) 141 MG/DL RISK RATIO LDL/HDL (test code = 2.82 RATIO 2238) LIPID [id number] 00:00:00 Test Item Value Reference Range Interpretation Comments CHOLESTEROL (test code = 2210) 225 MG/DL TRIGLYCERIDES (test code = 2232) 196 MG/DL HDL CHOLESTEROL (test code = 2220) 50 MG/DL CALC LDL CHOL (test code = 2237) 141 MG/DL RISK RATIO LDL/HDL (test code = 2.82 RATIO 2238) RHEUMATOID FACTOR, [id number] 00:00:00 Test Item Value Reference Range Interpretation Comments RHEUMATOID FACTOR, QUANT (test code <10 IU/ML = 3502) RHEUMATOID FACTOR, [id number] 00:00:00 Test Item Value Reference Range Interpretation Comments RHEUMATOID FACTOR, QUANT (test code <10 IU/ML = 3502) RHEUMATOID FACTOR, [id number] 00:00:00 Test Item Value Reference Range Interpretation Comments RHEUMATOID FACTOR, QUANT (test code <10 IU/ML = 3502) MANSOOR (ANTI-NUCLEAR AB) WITH REFLEX [id number] 00:00:00 Test Item Value Reference Range Interpretation Comments ANTI-NUCLEAR ANTIBODIES (test code = NEGATIVE 3506) MANSOOR (ANTI-NUCLEAR AB) WITH REFLEX [id number] 00:00:00 Test Item Value Reference Range Interpretation Comments ANTI-NUCLEAR ANTIBODIES (test code = NEGATIVE 3506) CCP [id number] 00:00:00 Test Item Value Reference Range Interpretation Comments CCP IgG (test code = 78924) <0.5 U/ML CCP [id number] 00:00:00 Test Item Value Reference Range Interpretation Comments CCP IgG (test code = 28495) <0.5 U/ML CCP [id number] 00:00:00 Test Item Value Reference Range Interpretation Comments CCP IgG (test code = 37062) <0.5 U/ML CBC W/AUTO [id number] 00:00:00 Test Item Value Reference Range Interpretation [...] code = 1015) 192 K/UL CBC W/AUTO [id number] 00:00:00 Test Item Value Reference Range Interpretation [...] code = 1015) 192 K/UL CBC W/AUTO [id number] 00:00:00 Test Item Value Reference Range Interpretation [...] COUNT (test code = 1015) 192 K/UL [id number] 00:00:00 Test Item Value Reference Range Interpretation Comments TSH, THIRD GENERATION (test code 2.790 UIU/ML = 2821) [id number] 00:00:00 Test Item Value Reference Range Interpretation Comments TSH, THIRD GENERATION (test code 2.790 UIU/ML = 2821) [id number] 00:00:00 Test Item Value Reference Range Interpretation Comments TSH, THIRD GENERATION (test code 2.790 UIU/ML = 2821) COMPREHENSIVE METABOLIC [id number] 00:00:00 Test Item Value Reference Range Interpretation Comments GLUCOSE (test code = 2217) 113 MG/DL BUN (test code = 2208) 12 MG/DL CREATININE (test code = 2214) 0.64 MG/DL eGFR AMER. (test code 117 ML/MIN/1.73 = 98889) eGFR NON- AMER. (test 101 ML/MIN/1.73 code = 14289) CALC BUN/CREAT (test code = 19 RATIO 2235) SODIUM (test code = 2231) 141 MEQ/L POTASSIUM (test code = 2228) 4.3 MEQ/L CHLORIDE (test code = 2215) 104 MEQ/L CARBON DIOXIDE (test code = 25 MEQ/L 2206) CALCIUM (test code = 2209) 9.5 MG/DL PROTEIN, TOTAL (test code = 7.4 G/DL 2228) ALBUMIN (test code = 2201) 4.6 G/DL CALC GLOBULIN (test code = 2.8 G/DL 2240) CALC A/G RATIO (test code = 1.6 RATIO 2234) BILIRUBIN, TOTAL (test code = 0.4 MG/DL 2206) ALKALINE PHOSPHATASE (test 90 U/L code = 220) AST (test code = 2218) 19 U/L ALT (test code = 2219) 29 U/L COMPREHENSIVE METABOLIC [id number] 00:00:00 Test Item Value Reference Range Interpretation Comments GLUCOSE (test code = 2217) 113 MG/DL BUN (test code = 2208) 12 MG/DL CREATININE (test code = 2214) 0.64 MG/DL eGFR AMER. (test code 117 ML/MIN/1.73 = 41101) eGFR NON- AMER. (test 101 ML/MIN/1.73 code = 43943) CALC BUN/CREAT (test code = 19 RATIO [...] code = 2219) 29 U/L COMPREHENSIVE METABOLIC [id number] 00:00:00 Test Item Value Reference Range Interpretation Comments GLUCOSE (test code = 2217) 113 MG/DL BUN (test code = 2208) 12 MG/DL CREATININE (test code = 2214) 0.64 MG/DL eGFR AMER. (test code 117 ML/MIN/1.73 = 23517) eGFR NON- AMER. (test 101 ML/MIN/1.73 code = 71801) CALC BUN/CREAT (test code = 19 RATIO [...] CALC GLOBULIN (test code = 2.8 G/DL 2239) CALC A/G RATIO (test code = 1.6 RATIO 2234) BILIRUBIN, TOTAL (test code = 0.4 MG/DL 2206) ALKALINE PHOSPHATASE (test 90 U/L code = 2204) AST (test code = 2218) 19 U/L ALT (test code = 2219) 29 U/L LIPID [id number] 00:00:00 Test Item Value Reference Range Interpretation Comments CHOLESTEROL (test code = 2210) 225 MG/DL TRIGLYCERIDES (test code = 2232) 196 MG/DL HDL CHOLESTEROL (test code = 2220) 50 MG/DL CALC LDL CHOL (test code = 2237) 141 MG/DL RISK RATIO LDL/HDL (test code = 2.82 RATIO 2238) LIPID [id number] 00:00:00 Test Item Value Reference Range Interpretation Comments CHOLESTEROL (test code = 2210) 225 MG/DL TRIGLYCERIDES (test code = 2232) 196 MG/DL HDL CHOLESTEROL (test code = 2220) 50 MG/DL CALC LDL CHOL (test code = 2237) 141 MG/DL RISK RATIO LDL/HDL (test code = 2.82 RATIO 2238) RHEUMATOID FACTOR, [id number] 00:00:00 Test Item Value Reference Range Interpretation Comments RHEUMATOID FACTOR, QUANT (test code <10 IU/ML = 3502) RHEUMATOID FACTOR, [id number] 00:00:00 Test Item Value Reference Range Interpretation Comments RHEUMATOID FACTOR, QUANT (test code <10 IU/ML = 3502) RHEUMATOID FACTOR, [id number] 00:00:00 Test Item Value Reference Range Interpretation Comments RHEUMATOID FACTOR, QUANT (test code <10 IU/ML = 3502) MANSOOR (ANTI-NUCLEAR AB) WITH REFLEX [id number] 00:00:00 Test Item Value Reference Range Interpretation Comments ANTI-NUCLEAR ANTIBODIES (test code = NEGATIVE 3506) MANSOOR (ANTI-NUCLEAR AB) WITH REFLEX [id number] 00:00:00 Test Item Value Reference Range Interpretation Comments ANTI-NUCLEAR ANTIBODIES (test code = NEGATIVE 3506) CCP [id number] 00:00:00 Test Item Value Reference Range Interpretation Comments CCP IgG (test code = 83495) <0.5 U/ML CCP [id number] 00:00:00 Test Item Value Reference Range Interpretation Comments CCP IgG (test code = 91521) <0.5 U/ML CCP [id number] 00:00:00 Test Item Value Reference Range Interpretation Comments CCP IgG (test code = 15822) <0.5 U/ML CBC W/AUTO [id number] 00:00:00 Test Item Value Reference Range Interpretation [...] code = 1015) 192 K/UL CBC W/AUTO [id number] 00:00:00 Test Item Value Reference Range Interpretation [...] code = 1015) 192 K/UL CBC W/AUTO [id number] 00:00:00 Test Item Value Reference Range Interpretation [...] COUNT (test code = 1015) 192 K/UL [id number] 00:00:00 Test Item Value Reference Range Interpretation Comments TSH, THIRD GENERATION (test code 2.790 UIU/ML = 2821) [id number] 00:00:00 Test Item Value Reference Range Interpretation Comments TSH, THIRD GENERATION (test code 2.790 UIU/ML = 2821) [id number] 00:00:00 Test Item Value Reference Range Interpretation Comments TSH, THIRD GENERATION (test code 2.790 UIU/ML = 2821) LIPID [id number] 00:00:00 Test Item Value Reference Range Interpretation Comments CHOLESTEROL (test code = 2210) 225 MG/DL TRIGLYCERIDES (test code = 2232) 196 MG/DL HDL CHOLESTEROL (test code = 2220) 50 MG/DL CALC LDL CHOL (test code = 2237) 141 MG/DL RISK RATIO LDL/HDL (test code = 2.82 RATIO 2238) RHEUMATOID FACTOR, [id number] 00:00:00 Test Item Value Reference Range Interpretation Comments RHEUMATOID FACTOR, QUANT (test code <10 IU/ML = 3502) RHEUMATOID FACTOR, [id number] 00:00:00 Test Item Value Reference Range Interpretation Comments RHEUMATOID FACTOR, QUANT (test code <10 IU/ML = 3502) MANSOOR (ANTI-NUCLEAR AB) WITH REFLEX [id number] 00:00:00 Test Item Value Reference Range Interpretation Comments ANTI-NUCLEAR ANTIBODIES (test code = NEGATIVE 3506) CCP [id number] 00:00:00 Test Item Value Reference Range Interpretation Comments CCP IgG (test code = 08554) <0.5 U/ML CCP [id number] 00:00:00 Test Item Value Reference Range Interpretation Comments CCP IgG (test code = 61868) <0.5 U/ML CBC W/AUTO [id number] 00:00:00 Test Item Value Reference Range Interpretation [...] code = 1015) 192 K/UL CBC W/AUTO [id number] 00:00:00 Test Item Value Reference Range Interpretation [...] COUNT (test code = 1015) 192 K/UL [id number] 00:00:00 Test Item Value Reference Range Interpretation Comments TSH, THIRD GENERATION (test code 2.790 UIU/ML = 2821) [id number] 00:00:00 Test Item Value Reference Range Interpretation Comments TSH, THIRD GENERATION (test code 2.790 UIU/ML = 2821) COMPREHENSIVE METABOLIC [id number] 00:00:00 Test Item Value Reference Range Interpretation Comments GLUCOSE (test code = 2217) 113 MG/DL BUN (test code = 2208) 12 MG/DL CREATININE (test code = 2214) 0.64 MG/DL eGFR AMER. (test code 117 ML/MIN/1.73 = 14425) eGFR NON- AMER. (test 101 ML/MIN/1.73 code = 21183) CALC BUN/CREAT (test code = 19 RATIO [...] CALC GLOBULIN (test code = 2.8 G/DL 2239) CALC A/G RATIO (test code = 1.6 RATIO 2233) BILIRUBIN, TOTAL (test code = 0.4 MG/DL 2206) ALKALINE PHOSPHATASE (test 90 U/L code = 2204) AST (test code = 2218) 19 U/L ALT (test code = 2219) 29 U/L LIPID [id number] 00:00:00 Test Item Value Reference Range Interpretation Comments CHOLESTEROL (test code = 2210) 225 MG/DL TRIGLYCERIDES (test code = 2232) 196 MG/DL HDL CHOLESTEROL (test code = 2220) 50 MG/DL CALC LDL CHOL (test code = 2237) 141 MG/DL RISK RATIO LDL/HDL (test code = 2.82 RATIO 2238) RHEUMATOID FACTOR, [id number] 00:00:00 Test Item Value Reference Range Interpretation Comments RHEUMATOID FACTOR, QUANT (test code <10 IU/ML = 3502) RHEUMATOID FACTOR, [id number] 00:00:00 Test Item Value Reference Range Interpretation Comments RHEUMATOID FACTOR, QUANT (test code <10 IU/ML = 3502) MANSOOR (ANTI-NUCLEAR AB) WITH REFLEX [id number] 00:00:00 Test Item Value Reference Range Interpretation Comments ANTI-NUCLEAR ANTIBODIES (test code = NEGATIVE 3506) CCP [id number] 00:00:00 Test Item Value Reference Range Interpretation Comments CCP IgG (test code = 78356) <0.5 U/ML CCP [id number] 00:00:00 Test Item Value Reference Range Interpretation Comments CCP IgG (test code = 45775) <0.5 U/ML CBC W/AUTO [id number] 00:00:00 Test Item Value Reference Range Interpretation [...] code = 1015) 192 K/UL CBC W/AUTO [id number] 00:00:00 Test Item Value Reference Range Interpretation [...] COUNT (test code = 1015) 192 K/UL [id number] 00:00:00 Test Item Value Reference Range Interpretation Comments TSH, THIRD GENERATION (test code 2.790 UIU/ML = 2821) [id number] 00:00:00 Test Item Value Reference Range Interpretation Comments TSH, THIRD GENERATION (test code 2.790 UIU/ML = 2821) COMPREHENSIVE METABOLIC [id number] 00:00:00 Test Item Value Reference Range Interpretation Comments GLUCOSE (test code = 2217) 113 MG/DL BUN (test code = 2208) 12 MG/DL CREATININE (test code = 2214) 0.64 MG/DL eGFR AMER. (test code 117 ML/MIN/1.73 = 03692) eGFR NON- AMER. (test 101 ML/MIN/1.73 code = 55659) CALC BUN/CREAT (test code = 19 RATIO [...] = 0.4 MG/DL 2207) ALKALINE PHOSPHATASE (test 90 U/L code = 2204) AST (test code = 2218) 19 U/L ALT (test code = 2219) 29 U/L LIPID [id number] 00:00:00 Test Item Value Reference Range Interpretation Comments CHOLESTEROL (test code = 2210) 225 MG/DL TRIGLYCERIDES (test code = 2232) 196 MG/DL HDL CHOLESTEROL (test code = 2220) 50 MG/DL CALC LDL CHOL (test code = 2237) 141 MG/DL RISK RATIO LDL/HDL (test code = 2.82 RATIO 2238) RHEUMATOID FACTOR, [id number] 00:00:00 Test Item Value Reference Range Interpretation Comments RHEUMATOID FACTOR, QUANT (test code <10 IU/ML = 3502) RHEUMATOID FACTOR, [id number] 00:00:00 Test Item Value Reference Range Interpretation Comments RHEUMATOID FACTOR, QUANT (test code <10 IU/ML = 3502) MANSOOR (ANTI-NUCLEAR AB) WITH REFLEX [id number] 00:00:00 Test Item Value Reference Range Interpretation Comments ANTI-NUCLEAR ANTIBODIES (test code = NEGATIVE 3506) CCP [id number] 00:00:00 Test Item Value Reference Range Interpretation Comments CCP IgG (test code = 89213) <0.5 U/ML CCP [id number] 00:00:00 Test Item Value Reference Range Interpretation Comments CCP IgG (test code = 10218) <0.5 U/ML CBC W/AUTO [id number] 00:00:00 Test Item Value Reference Range Interpretation [...] code = 1015) 192 K/UL CBC W/AUTO [id number] 00:00:00 Test Item Value Reference Range Interpretation [...] COUNT (test code = 1015) 192 K/UL [id number] 00:00:00 Test Item Value Reference Range Interpretation Comments TSH, THIRD GENERATION (test code 2.790 UIU/ML = 2821) [id number] 00:00:00 Test Item Value Reference Range Interpretation Comments TSH, THIRD GENERATION (test code 2.790 UIU/ML = 2821) COMPREHENSIVE METABOLIC [id number] 00:00:00 Test Item Value Reference Range Interpretation Comments GLUCOSE (test code = 2217) 113 MG/DL BUN (test code = 2208) 12 MG/DL CREATININE (test code = 2214) 0.64 MG/DL eGFR AMER. (test code 117 ML/MIN/1.73 = 36660) eGFR NON- AMER. (test 101 ML/MIN/1.73 code = 85811) CALC BUN/CREAT (test code = 19 RATIO 2235) SODIUM (test code = 2231) 141 MEQ/L POTASSIUM (test code = 2228) 4.3 MEQ/L CHLORIDE (test code = 2215) 104 MEQ/L CARBON DIOXIDE (test code = 25 MEQ/L 220) CALCIUM (test code = 2209) 9.5 MG/DL PROTEIN, TOTAL (test code = 7.4 G/DL 2229) ALBUMIN (test code = 2201) 4.6 G/DL CALC GLOBULIN (test code = 2.8 G/DL 2240) CALC A/G RATIO (test code = 1.6 RATIO 2234) BILIRUBIN, TOTAL (test code = 0.4 MG/DL 220) ALKALINE PHOSPHATASE (test 90 U/L code = 2204) AST (test code = 2218) 19 U/L ALT (test code = 2219) 29 U/L COMPREHENSIVE METABOLIC [id number] 00:00:00 Test Item Value Reference Range Interpretation Comments GLUCOSE (test code = 2217) 113 MG/DL BUN (test code = 2208) 12 MG/DL CREATININE (test code = 2214) 0.64 MG/DL eGFR AMER. (test code 117 ML/MIN/1.73 = 63107) eGFR NON- AMER. (test 101 ML/MIN/1.73 code = 70469) CALC BUN/CREAT (test code = 19 RATIO [...] = 0.4 MG/DL 2207) ALKALINE PHOSPHATASE (test 90 U/L code = 2204) AST (test code = 2218) 19 U/L ALT (test code = 2219) 29 U/L LIPID [id number] 00:00:00 Test Item Value Reference Range Interpretation Comments CHOLESTEROL (test code = 2210) 225 MG/DL TRIGLYCERIDES (test code = 2232) 196 MG/DL HDL CHOLESTEROL (test code = 2220) 50 MG/DL CALC LDL CHOL (test code = 2237) 141 MG/DL RISK RATIO LDL/HDL (test code = 2.82 RATIO 2238) LIPID [id number] 00:00:00 Test Item Value Reference Range Interpretation Comments CHOLESTEROL (test code = 2210) 225 MG/DL TRIGLYCERIDES (test code = 2232) 196 MG/DL HDL CHOLESTEROL (test code = 2220) 50 MG/DL CALC LDL CHOL (test code = 2237) 141 MG/DL RISK RATIO LDL/HDL (test code = 2.82 RATIO 2238) CULTURE, [id number] 00:00:00 Test Item Value Reference Range Interpretation Comments CULTURE, THROAT (test SPECIMEN NUMBER: code = 06495) [id number] CULTURE, [id number] 00:00:00 Test Item Value Reference Range Interpretation Comments CULTURE, THROAT (test SPECIMEN NUMBER: code = 51129) [id number] CULTURE, [id number] 00:00:00 Test Item Value Reference Range Interpretation Comments CULTURE, THROAT (test SPECIMEN NUMBER: code = 23625) [id number] CULTURE, [id number] 00:00:00 Test Item Value Reference Range Interpretation Comments CULTURE, THROAT (test SPECIMEN NUMBER: code = 87410) [id number] CULTURE, [id number] 00:00:00 Test Item Value Reference Range Interpretation Comments CULTURE, THROAT (test SPECIMEN NUMBER: code = 33568) [id number] CULTURE, [id number] 00:00:00 Test Item Value Reference Range Interpretation Comments CULTURE, THROAT (test SPECIMEN NUMBER: code = 29180) [id number] CULTURE, [id number] 00:00:00 Test Item Value Reference Range Interpretation Comments CULTURE, THROAT (test SPECIMEN NUMBER: code = 88837) [id number] CULTURE, [id number] 00:00:00 Test Item Value Reference Range Interpretation Comments CULTURE, THROAT (test SPECIMEN NUMBER: code = 74961) [id number] CULTURE, [id number] 00:00:00 Test Item Value Reference Range Interpretation Comments CULTURE, THROAT (test SPECIMEN NUMBER: code = 13867) [id number] SARS-CoV-2 (COVID-19) by RT-PCR (HIGH RISK)2019-12-29 00:00:00 Test Item Value Reference Range Interpretation Comments SARS-CoV-2 INTERPRETATION (test NEGATIVE code = 95077) SOURCE (test code = 01882) NOT SPECIFIED SARS-CoV-2 (COVID-19) by RT-PCR (HIGH RISK)2019-12-29 00:00:00 Test Item Value Reference Range Interpretation Comments SARS-CoV-2 INTERPRETATION (test NEGATIVE code = 27063) SOURCE (test code = 52536) NOT SPECIFIED SARS-CoV-2 (COVID-19) by RT-PCR (HIGH RISK)2019-12-29 00:00:00 Test Item Value Reference Range Interpretation Comments SARS-CoV-2 INTERPRETATION (test NEGATIVE code = 43106) SOURCE (test code = 73468) NOT SPECIFIED SARS-CoV-2 (COVID-19) by RT-PCR (HIGH RISK)2019-12-29 00:00:00 Test Item Value Reference Range Interpretation Comments SARS-CoV-2 INTERPRETATION (test NEGATIVE code = 77611) SOURCE (test code = 86370) NOT SPECIFIED SARS-CoV-2 (COVID-19) by RT-PCR (HIGH RISK)2019-12-29 00:00:00 Test Item Value Reference Range Interpretation Comments SARS-CoV-2 INTERPRETATION (test NEGATIVE code = 58273) SOURCE (test code = 37829) NOT SPECIFIED SARS-CoV-2 (COVID-19) by RT-PCR (HIGH RISK)2019-12-29 00:00:00 Test Item Value Reference Range Interpretation Comments SARS-CoV-2 INTERPRETATION (test NEGATIVE code = 62761) SOURCE (test code = 94787) NOT SPECIFIED SARS-CoV-2 (COVID-19) by RT-PCR (HIGH RISK)2019-12-29 00:00:00 Test Item Value Reference Range Interpretation Comments SARS-CoV-2 INTERPRETATION (test NEGATIVE code = 90573) SOURCE (test code = 13438) NOT SPECIFIED SARS-CoV-2 (COVID-19) by RT-PCR (HIGH RISK)2019-12-29 00:00:00 Test Item Value Reference Range Interpretation Comments SARS-CoV-2 INTERPRETATION (test NEGATIVE code = 06947) SOURCE (test code = 75299) NOT SPECIFIED SARS-CoV-2 (COVID-19) by RT-PCR (HIGH RISK)2019-12-29 00:00:00 Test Item Value Reference Range Interpretation Comments SARS-CoV-2 INTERPRETATION (test NEGATIVE code = 82959) SOURCE (test code = 11978) NOT SPECIFIED SARS-CoV-2 (COVID-19) by RT-PCR (HIGH RISK)2019-12-07 00:00:00 Test Item Value Reference Range Interpretation Comments SARS-CoV-2 INTERPRETATION (test NEGATIVE code = 36421) SOURCE (test code = 37300) NOT SPECIFIED SARS-CoV-2 (COVID-19) by RT-PCR (HIGH RISK)2019-12-07 00:00:00 Test Item Value Reference Range Interpretation Comments SARS-CoV-2 INTERPRETATION (test NEGATIVE code = 64328) SOURCE (test code = 14506) NOT SPECIFIED SARS-CoV-2 (COVID-19) by RT-PCR (HIGH RISK)2019-12-07 00:00:00 Test Item Value Reference Range Interpretation Comments SARS-CoV-2 INTERPRETATION (test NEGATIVE code = 77960) SOURCE (test code = 69852) NOT SPECIFIED SARS-CoV-2 (COVID-19) by RT-PCR (HIGH RISK)2019-12-07 00:00:00 Test Item Value Reference Range Interpretation Comments SARS-CoV-2 INTERPRETATION (test NEGATIVE code = 14456) SOURCE (test code = 13418) NOT SPECIFIED SARS-CoV-2 (COVID-19) by RT-PCR (HIGH RISK)2019-12-07 00:00:00 Test Item Value Reference Range Interpretation Comments SARS-CoV-2 INTERPRETATION (test NEGATIVE code = 36327) SOURCE (test code = 03148) NOT SPECIFIED SARS-CoV-2 (COVID-19) by RT-PCR (HIGH RISK)2019-12-07 00:00:00 Test Item Value Reference Range Interpretation Comments SARS-CoV-2 INTERPRETATION (test NEGATIVE code = 95407) SOURCE (test code = 25182) NOT SPECIFIED SARS-CoV-2 (COVID-19) by RT-PCR (HIGH RISK)2019-12-07 00:00:00 Test Item Value Reference Range Interpretation Comments SARS-CoV-2 INTERPRETATION (test NEGATIVE code = 82101) SOURCE (test code = 92958) NOT SPECIFIED SARS-CoV-2 (COVID-19) by RT-PCR (HIGH RISK)2019-12-07 00:00:00 Test Item Value Reference Range Interpretation Comments SARS-CoV-2 INTERPRETATION (test NEGATIVE code = 10911) SOURCE (test code = 90404) NOT SPECIFIED SARS-CoV-2 (COVID-19) by RT-PCR (HIGH RISK)2019-12-07 00:00:00 Test Item Value Reference Range Interpretation Comments SARS-CoV-2 INTERPRETATION (test NEGATIVE code = 63987) SOURCE (test code = 43507) NOT SPECIFIED SARS-COV-2(COVID19),HIGHRISK,RT-PCR [ADDED]2019-09-12 00:00:00 Test Item Value Reference Range Interpretation Comments SARS-CoV-2 INTERPRETATION NEGATIVE (test code = 59181) SOURCE (test code = 00958) NASOPHARYNGEAL SARS-COV-2(COVID19),HIGHRISK,RT-PCR [ADDED]2019-09-12 00:00:00 Test Item Value Reference Range Interpretation Comments SARS-CoV-2 INTERPRETATION NEGATIVE (test code = 62595) SOURCE (test code = 25398) NASOPHARYNGEAL SARS-COV-2(COVID19),HIGHRISK,RT-PCR [ADDED]2019-09-12 00:00:00 Test Item Value Reference Range Interpretation Comments SARS-CoV-2 INTERPRETATION NEGATIVE (test code = 16947) SOURCE (test code = 56418) NASOPHARYNGEAL SARS-COV-2(COVID19),HIGHRISK,RT-PCR [ADDED]2019-09-12 00:00:00 Test Item Value Reference Range Interpretation Comments SARS-CoV-2 INTERPRETATION NEGATIVE (test code = 13765) SOURCE (test code = 76323) NASOPHARYNGEAL SARS-COV-2(COVID19),HIGHRISK,RT-PCR [ADDED]2019-09-12 00:00:00 Test Item Value Reference Range Interpretation Comments SARS-CoV-2 INTERPRETATION NEGATIVE (test code = 75396) SOURCE (test code = 39411) NASOPHARYNGEAL SARS-COV-2(COVID19),HIGHRISK,RT-PCR [ADDED]2019-09-12 00:00:00 Test Item Value Reference Range Interpretation Comments SARS-CoV-2 INTERPRETATION NEGATIVE (test code = 72758) SOURCE (test code = 16440) NASOPHARYNGEAL SARS-COV-2(COVID19),HIGHRISK,RT-PCR [ADDED]2019-09-12 00:00:00 Test Item Value Reference Range Interpretation Comments SARS-CoV-2 INTERPRETATION NEGATIVE (test code = 45084) SOURCE (test code = 07958) NASOPHARYNGEAL SARS-COV-2(COVID19),HIGHRISK,RT-PCR [ADDED]2019-09-12 00:00:00 Test Item Value Reference Range Interpretation Comments SARS-CoV-2 INTERPRETATION NEGATIVE (test code = 41452) SOURCE (test code = 98151) NASOPHARYNGEAL SARS-COV-2(COVID19),HIGHRISK,RT-PCR [ADDED]2019-09-12 00:00:00 Test Item Value Reference Range Interpretation Comments SARS-CoV-2 INTERPRETATION NEGATIVE (test code = 04286) SOURCE (test code = 01066) NASOPHARYNGEAL CBC W/AUTO [id number] 00:00:00 Test Item Value Reference Range Interpretation [...] code = 1015) 225 K/UL CBC W/AUTO [id number] 00:00:00 Test Item Value Reference Range Interpretation [...] code = 1015) 225 K/UL CBC W/AUTO [id number] 00:00:00 Test Item Value Reference Range Interpretation [...] code = 1015) 225 K/UL CBC W/AUTO [id number] 00:00:00 Test Item Value Reference Range Interpretation [...] code = 1015) 225 K/UL CBC W/AUTO [id number] 00:00:00 Test Item Value Reference Range Interpretation [...] code = 1015) 225 K/UL CBC W/AUTO [id number] 00:00:00 Test Item Value Reference Range Interpretation [...] code = 1015) 225 K/UL CBC W/AUTO [id number] 00:00:00 Test Item Value Reference Range Interpretation [...] code = 1015) 225 K/UL CBC W/AUTO [id number] 00:00:00 Test Item Value Reference Range Interpretation [...] code = 1015) 225 K/UL CBC W/AUTO [id number] 00:00:00 Test Item Value Reference Range Interpretation [...] code = 1015) 225 K/UL CBC W/AUTO [id number] 00:00:00 Test Item Value Reference Range Interpretation [...] code = 1015) 225 K/UL CBC W/AUTO [id number] 00:00:00 Test Item Value Reference Range Interpretation [...] code = 1015) 225 K/UL CBC W/AUTO [id number] 00:00:00 Test Item Value Reference Range Interpretation [...] code = 1015) 225 K/UL CBC W/AUTO [id number] 00:00:00 Test Item Value Reference Range Interpretation [...] code = 1015) 225 K/UL CBC W/AUTO [id number] 00:00:00 Test Item Value Reference Range Interpretation [...] code = 1015) 225 K/UL CBC W/AUTO [id number] 00:00:00 Test Item Value Reference Range Interpretation [...] COUNT (test code = 1015) 225 K/UL [id number] 00:00:00 Test Item Value Reference Range Interpretation Comments AMYLASE (test code = 2205) 78 U/L [id number] 00:00:00 Test Item Value Reference Range Interpretation Comments AMYLASE (test code = 2205) 78 U/L [id number] 00:00:00 Test Item Value Reference Range Interpretation Comments LIPASE (test code = 8) 39 U/L [id number] 00:00:00 Test Item Value Reference Range Interpretation Comments LIPASE (test code = 2057) 39 U/L [id number] 00:00:00 Test Item Value Reference Range Interpretation Comments LIPASE (test code = 8) 39 U/L CBC W/AUTO [id number] 00:00:00 Test Item Value Reference Range Interpretation [...] code = 1015) 218 K/UL CBC W/AUTO [id number] 00:00:00 Test Item Value Reference Range Interpretation [...] code = 1015) 218 K/UL CBC W/AUTO [id number] 00:00:00 Test Item Value Reference Range Interpretation [...] code = 1015) 218 K/UL COMPREHENSIVE METABOLIC [id number] 00:00:00 Test Item Value Reference Range Interpretation Comments GLUCOSE (test code = 2217) 81 MG/DL BUN (test code = 2208) 12 MG/DL CREATININE (test code = 2214) 0.49 MG/DL eGFR AMER. (test code 131 ML/MIN/1.73 = 83520) eGFR NON- AMER. (test 113 ML/MIN/1.73 code = 71267) CALC BUN/CREAT (test code = 24 RATIO [...] code = 2219) 26 U/L COMPREHENSIVE METABOLIC [id number] 00:00:00 Test Item Value Reference Range Interpretation Comments GLUCOSE (test code = 2217) 81 MG/DL BUN (test code = 2208) 12 MG/DL CREATININE (test code = 2214) 0.49 MG/DL eGFR AMER. (test code 131 ML/MIN/1.73 = 81550) eGFR NON- AMER. (test 113 ML/MIN/1.73 code = 55890) CALC BUN/CREAT (test code = 24 RATIO [...] ALT (test code = 2219) 26 U/L [id number] 00:00:00 Test Item Value Reference Range Interpretation Comments AMYLASE (test code = 2205) 78 U/L [id number] 00:00:00 Test Item Value Reference Range Interpretation Comments AMYLASE (test code = 2205) 78 U/L [id number] 00:00:00 Test Item Value Reference Range Interpretation Comments LIPASE (test code = 2057) 39 U/L [id number] 00:00:00 Test Item Value Reference Range Interpretation Comments LIPASE (test code = 205) 39 U/L [id number] 00:00:00 Test Item Value Reference Range Interpretation Comments LIPASE (test code = 2057) 39 U/L CBC W/AUTO [id number] 00:00:00 Test Item Value Reference Range Interpretation [...] code = 1015) 218 K/UL CBC W/AUTO [id number] 00:00:00 Test Item Value Reference Range Interpretation [...] code = 1015) 218 K/UL CBC W/AUTO [id number] 00:00:00 Test Item Value Reference Range Interpretation [...] code = 1015) 218 K/UL CBC W/AUTO [id number] 00:00:00 Test Item Value Reference Range Interpretation [...] code = 1015) 218 K/UL CBC W/AUTO [id number] 00:00:00 Test Item Value Reference Range Interpretation [...] code = 1015) 218 K/UL COMPREHENSIVE METABOLIC [id number] 00:00:00 Test Item Value Reference Range Interpretation Comments GLUCOSE (test code = 2217) 81 MG/DL BUN (test code = 2208) 12 MG/DL CREATININE (test code = 2214) 0.49 MG/DL eGFR AMER. (test code 131 ML/MIN/1.73 = 61679) eGFR NON- AMER. (test 113 ML/MIN/1.73 code = 58661) CALC BUN/CREAT (test code = 24 RATIO [...] A/G RATIO (test code = 1.4 RATIO 4) BILIRUBIN, TOTAL (test code = 0.4 MG/DL 2206) ALKALINE PHOSPHATASE (test 92 U/L code = 2204) AST (test code = 2218) 20 U/L ALT (test code = 2219) 26 U/L COMPREHENSIVE METABOLIC [id number] 00:00:00 Test Item Value Reference Range Interpretation Comments GLUCOSE (test code = 2217) 81 MG/DL BUN (test code = 2208) 12 MG/DL CREATININE (test code = 2214) 0.49 MG/DL eGFR AMER. (test code 131 ML/MIN/1.73 = 15456) eGFR NON- AMER. (test 113 ML/MIN/1.73 code = 16912) CALC BUN/CREAT (test code = 24 RATIO [...] ALT (test code = 2219) 26 U/L [id number] 00:00:00 Test Item Value Reference Range Interpretation Comments AMYLASE (test code = 2205) 78 U/L [id number] 00:00:00 Test Item Value Reference Range Interpretation Comments AMYLASE (test code = 2205) 78 U/L [id number] 00:00:00 Test Item Value Reference Range Interpretation Comments LIPASE (test code = 205) 39 U/L COMPREHENSIVE METABOLIC [id number] 00:00:00 Test Item Value Reference Range Interpretation Comments GLUCOSE (test code = 2217) 81 MG/DL BUN (test code = 2208) 12 MG/DL CREATININE (test code = 2214) 0.49 MG/DL eGFR AMER. (test code 131 ML/MIN/1.73 = 70328) eGFR NON- AMER. (test 113 ML/MIN/1.73 code = 53431) CALC BUN/CREAT (test code = 24 RATIO [...] ALT (test code = 2219) 26 U/L [id number] 00:00:00 Test Item Value Reference Range Interpretation Comments LIPASE (test code = 2057) 39 U/L [id number] 00:00:00 Test Item Value Reference Range Interpretation Comments LIPASE (test code = 2057) 39 U/L [id number] 00:00:00 Test Item Value Reference Range Interpretation Comments AMYLASE (test code = 2205) 78 U/L [id number] 00:00:00 Test Item Value Reference Range Interpretation Comments LIPASE (test code = 2057) 39 U/L [id number] 00:00:00 Test Item Value Reference Range Interpretation Comments LIPASE (test code = 2057) 39 U/L CBC W/AUTO [id number] 00:00:00 Test Item Value Reference Range Interpretation [...] code = 1015) 218 K/UL CBC W/AUTO [id number] 00:00:00 Test Item Value Reference Range Interpretation [...] code = 1015) 218 K/UL COMPREHENSIVE METABOLIC [id number] 00:00:00 Test Item Value Reference Range Interpretation Comments GLUCOSE (test code = 2217) 81 MG/DL BUN (test code = 2208) 12 MG/DL CREATININE (test code = 2214) 0.49 MG/DL eGFR AMER. (test code 131 ML/MIN/1.73 = 50533) eGFR NON- AMER. (test 113 ML/MIN/1.73 code = 76737) CALC BUN/CREAT (test code = 24 RATIO [...] ALT (test code = 2219) 26 U/L [id number] 00:00:00 Test Item Value Reference Range Interpretation Comments AMYLASE (test code = 2205) 78 U/L [id number] 00:00:00 Test Item Value Reference Range Interpretation Comments LIPASE (test code = 2057) 39 U/L [id number] 00:00:00 Test Item Value Reference Range Interpretation Comments LIPASE (test code = 2057) 39 U/L CBC W/AUTO [id number] 00:00:00 Test Item Value Reference Range Interpretation [...] code = 1015) 218 K/UL CBC W/AUTO [id number] 00:00:00 Test Item Value Reference Range Interpretation [...] code = 1015) 218 K/UL COMPREHENSIVE METABOLIC [id number] 00:00:00 Test Item Value Reference Range Interpretation Comments GLUCOSE (test code = 2217) 81 MG/DL BUN (test code = 2208) 12 MG/DL CREATININE (test code = 2214) 0.49 MG/DL eGFR AMER. (test code 131 ML/MIN/1.73 = 30451) eGFR NON- AMER. (test 113 ML/MIN/1.73 code = 14102) CALC BUN/CREAT (test code = 24 RATIO [...] ALT (test code = 2219) 26 U/L [id number] 00:00:00 Test Item Value Reference Range Interpretation Comments AMYLASE (test code = 2204) 78 U/L [id number] 00:00:00 Test Item Value Reference Range Interpretation Comments LIPASE (test code = 2057) 39 U/L [id number] 00:00:00 Test Item Value Reference Range Interpretation Comments LIPASE (test code = 2057) 39 U/L CBC W/AUTO [id number] 00:00:00 Test Item Value Reference Range Interpretation [...] code = 1015) 218 K/UL CBC W/AUTO [id number] 00:00:00 Test Item Value Reference Range Interpretation [...] code = 1015) 218 K/UL CBC W/AUTO [id number] 00:00:00 Test Item Value Reference Range Interpretation [...] code = 1015) 218 K/UL COMPREHENSIVE METABOLIC [id number] 00:00:00 Test Item Value Reference Range Interpretation Comments GLUCOSE (test code = 2217) 81 MG/DL BUN (test code = 2208) 12 MG/DL CREATININE (test code = 2214) 0.49 MG/DL eGFR AMER. (test code 131 ML/MIN/1.73 = 06159) eGFR NON- AMER. (test 113 ML/MIN/1.73 code = 13041) CALC BUN/CREAT (test code = 24 RATIO 2235) SODIUM (test code = 2231) 140 MEQ/L POTASSIUM (test code = 2228) 4.2 MEQ/L CHLORIDE (test code = 2215) 100 MEQ/L CARBON DIOXIDE (test code = 26 MEQ/L 2206) CALCIUM (test code = 2209) 9.5 MG/DL PROTEIN, TOTAL (test code = 7.3 G/DL 2229) ALBUMIN (test code = 2201) 4.3 G/DL CALC GLOBULIN (test code = 3.0 G/DL 2240) CALC A/G RATIO (test code = 1.4 RATIO 2234) BILIRUBIN, TOTAL (test code = 0.4 MG/DL 220) ALKALINE PHOSPHATASE (test 92 U/L code = 2204) AST (test code = 2218) 20 U/L ALT (test code = 2219) 26 U/L COMPREHENSIVE METABOLIC [id number] 00:00:00 Test Item Value Reference Range Interpretation Comments GLUCOSE (test code = 2217) 81 MG/DL BUN (test code = 2208) 12 MG/DL CREATININE (test code = 2214) 0.49 MG/DL eGFR AMER. (test code 131 ML/MIN/1.73 = 92771) eGFR NON- AMER. (test 113 ML/MIN/1.73 code = 41789) CALC BUN/CREAT (test code = 24 RATIO [...] (test code = 2219) 26 U/L LIPID [id number] 00:00:00 Test Item Value Reference Range Interpretation Comments CHOLESTEROL (test code = 2210) 219 MG/DL TRIGLYCERIDES (test code = 2232) 151 MG/DL HDL CHOLESTEROL (test code = 2220) 55 MG/DL CALC LDL CHOL (test code = 2237) 134 MG/DL RISK RATIO LDL/HDL (test code = 2.43 RATIO 2238) LIPID [id number] 00:00:00 Test Item Value Reference Range Interpretation [...] (test code = 2821) 2.46 UIU/ML HEMOGLOBIN [id number] 00:00:00 Test Item Value Reference Range Interpretation Comments HEMOGLOBIN A1c (test code = 59013) 5.4 % HEMOGLOBIN [id number] 00:00:00 Test Item Value Reference Range Interpretation Comments HEMOGLOBIN A1c (test code = 90943) 5.4 % HEMOGLOBIN [id number] 00:00:00 Test Item Value Reference Range Interpretation Comments HEMOGLOBIN A1c (test code = 08565) 5.4 % CBC W/AUTO [id number] 00:00:00 Test Item Value Reference Range Interpretation [...] code = 1015) 229 K/UL CBC W/AUTO [id number] 00:00:00 Test Item Value Reference Range Interpretation [...] code = 1015) 229 K/UL CBC W/AUTO [id number] 00:00:00 Test Item Value Reference Range Interpretation [...] code = 1015) 229 K/UL COMPREHENSIVE METABOLIC [id number] 00:00:00 Test Item Value Reference Range Interpretation Comments GLUCOSE (test code = 2217) 91 MG/DL BUN (test code = 2208) 9 MG/DL CREATININE (test code = 2214) 0.52 MG/DL eGFR AMER. (test code 129 ML/MIN/1.73 = 43676) eGFR NON- AMER. (test 111 ML/MIN/1.73 code = 85661) CALC BUN/CREAT (test code = 17 RATIO [...] code = 2219) 21 U/L COMPREHENSIVE METABOLIC [id number] 00:00:00 Test Item Value Reference Range Interpretation Comments GLUCOSE (test code = 2217) 91 MG/DL BUN (test code = 2208) 9 MG/DL CREATININE (test code = 2214) 0.52 MG/DL eGFR AMER. (test code 129 ML/MIN/1.73 = 36787) eGFR NON- AMER. (test 111 ML/MIN/1.73 code = 01307) CALC BUN/CREAT (test code = 17 RATIO [...] (test code = 2219) 21 U/L LIPID [id number] 00:00:00 Test Item Value Reference Range Interpretation Comments CHOLESTEROL (test code = 2210) 219 MG/DL TRIGLYCERIDES (test code = 2232) 151 MG/DL HDL CHOLESTEROL (test code = 2220) 55 MG/DL CALC LDL CHOL (test code = 2237) 134 MG/DL RISK RATIO LDL/HDL (test code = 2.43 RATIO 2238) LIPID [id number] 00:00:00 Test Item Value Reference Range Interpretation [...] (test code = 2821) 2.46 UIU/ML HEMOGLOBIN [id number] 00:00:00 Test Item Value Reference Range Interpretation Comments HEMOGLOBIN A1c (test code = 80613) 5.4 % HEMOGLOBIN [id number] 00:00:00 Test Item Value Reference Range Interpretation Comments HEMOGLOBIN A1c (test code = 30836) 5.4 % HEMOGLOBIN [id number] 00:00:00 Test Item Value Reference Range Interpretation Comments HEMOGLOBIN A1c (test code = 81196) 5.4 % HEMOGLOBIN [id number] 00:00:00 Test Item Value Reference Range Interpretation Comments HEMOGLOBIN A1c (test code = 29850) 5.4 % CBC W/AUTO [id number] 00:00:00 Test Item Value Reference Range Interpretation [...] code = 1015) 229 K/UL CBC W/AUTO [id number] 00:00:00 Test Item Value Reference Range Interpretation [...] code = 1015) 229 K/UL CBC W/AUTO [id number] 00:00:00 Test Item Value Reference Range Interpretation [...] (test code = 1015) 229 K/UL HEMOGLOBIN [id number] 00:00:00 Test Item Value Reference Range Interpretation Comments HEMOGLOBIN A1c (test code = 72154) 5.4 % COMPREHENSIVE METABOLIC [id number] 00:00:00 Test Item Value Reference Range Interpretation Comments GLUCOSE (test code = 2217) 91 MG/DL BUN (test code = 2208) 9 MG/DL CREATININE (test code = 2214) 0.52 MG/DL eGFR AMER. (test code 129 ML/MIN/1.73 = 16643) eGFR NON- AMER. (test 111 ML/MIN/1.73 code = 80627) CALC BUN/CREAT (test code = 17 RATIO [...] code = 2219) 21 U/L COMPREHENSIVE METABOLIC [id number] 00:00:00 Test Item Value Reference Range Interpretation Comments GLUCOSE (test code = 2217) 91 MG/DL BUN (test code = 2208) 9 MG/DL CREATININE (test code = 2214) 0.52 MG/DL eGFR AMER. (test code 129 ML/MIN/1.73 = 11366) eGFR NON- AMER. (test 111 ML/MIN/1.73 code = 18208) CALC BUN/CREAT (test code = 17 RATIO [...] (test code = 2219) 21 U/L LIPID [id number] 00:00:00 Test Item Value Reference Range Interpretation Comments CHOLESTEROL (test code = 2210) 219 MG/DL TRIGLYCERIDES (test code = 2232) 151 MG/DL HDL CHOLESTEROL (test code = 2220) 55 MG/DL CALC LDL CHOL (test code = 2237) 134 MG/DL RISK RATIO LDL/HDL (test code = 2.43 RATIO 2238) LIPID [id number] 00:00:00 Test Item Value Reference Range Interpretation [...] Interpretation Comments T3 UPTAKE (test code = 281) 30.0 % T4 (THYROXINE) (test code = [...] code = 2821) 2.46 UIU/ML CBC W/AUTO [id number] 00:00:00 Test Item Value Reference Range Interpretation [...] code = 1015) 229 K/UL CBC W/AUTO [id number] 00:00:00 Test Item Value Reference Range Interpretation [...] code = 1015) 229 K/UL COMPREHENSIVE METABOLIC [id number] 00:00:00 Test Item Value Reference Range Interpretation Comments GLUCOSE (test code = 2217) 91 MG/DL BUN (test code = 2208) 9 MG/DL CREATININE (test code = 2214) 0.52 MG/DL eGFR AMER. (test code 129 ML/MIN/1.73 = 17995) eGFR NON- AMER. (test 111 ML/MIN/1.73 code = 45016) CALC BUN/CREAT (test code = 17 RATIO [...] BILIRUBIN, TOTAL (test code = 0.6 MG/DL 220) ALKALINE PHOSPHATASE (test 84 U/L code = 2204) AST (test code = 2218) 22 U/L ALT (test code = 2219) 21 U/L LIPID [id number] 00:00:00 Test Item Value Reference Range Interpretation [...] CALCULATED T7 (FTI) (test code = 1.65 2030) TSH (test code = 2821) 2.46 UIU/ML HEMOGLOBIN [id number] 00:00:00 Test Item Value Reference Range Interpretation Comments HEMOGLOBIN A1c (test code = 70790) 5.4 % HEMOGLOBIN [id number] 00:00:00 Test Item Value Reference Range Interpretation Comments HEMOGLOBIN A1c (test code = 28188) 5.4 % CBC W/AUTO [id number] 00:00:00 Test Item Value Reference Range Interpretation [...] code = 1015) 229 K/UL CBC W/AUTO [id number] 00:00:00 Test Item Value Reference Range Interpretation [...] code = 1015) 229 K/UL COMPREHENSIVE METABOLIC [id number] 00:00:00 Test Item Value Reference Range Interpretation Comments GLUCOSE (test code = 2217) 91 MG/DL BUN (test code = 2208) 9 MG/DL CREATININE (test code = 2214) 0.52 MG/DL eGFR AMER. (test code 129 ML/MIN/1.73 = 10344) eGFR NON- AMER. (test 111 ML/MIN/1.73 code = 30837) CALC BUN/CREAT (test code = 17 RATIO [...] (test code = 2219) 21 U/L LIPID [id number] 00:00:00 Test Item Value Reference Range Interpretation [...] CALCULATED T7 (FTI) (test code = 1.65 3290) TSH (test code = 2821) 2.46 UIU/ML HEMOGLOBIN [id number] 00:00:00 Test Item Value Reference Range Interpretation Comments HEMOGLOBIN A1c (test code = 17357) 5.4 % HEMOGLOBIN [id number] 00:00:00 Test Item Value Reference Range Interpretation Comments HEMOGLOBIN A1c (test code = 83079) 5.4 % CBC W/AUTO [id number] 00:00:00 Test Item Value Reference Range Interpretation [...] code = 1015) 229 K/UL CBC W/AUTO [id number] 00:00:00 Test Item Value Reference Range Interpretation [...] code = 1015) 229 K/UL COMPREHENSIVE METABOLIC [id number] 00:00:00 Test Item Value Reference Range Interpretation Comments GLUCOSE (test code = 2217) 91 MG/DL BUN (test code = 2208) 9 MG/DL CREATININE (test code = 2214) 0.52 MG/DL eGFR AMER. (test code 129 ML/MIN/1.73 = 61522) eGFR NON- AMER. (test 111 ML/MIN/1.73 code = 78267) CALC BUN/CREAT (test code = 17 RATIO [...] (test code = 2219) 21 U/L LIPID [id number] 00:00:00 Test Item Value Reference Range Interpretation [...] (test code = 2821) 2.46 UIU/ML HEMOGLOBIN [id number] 00:00:00 Test Item Value Reference Range Interpretation Comments HEMOGLOBIN A1c (test code = 60343) 5.4 % HEMOGLOBIN [id number] 00:00:00 Test Item Value Reference Range Interpretation Comments HEMOGLOBIN A1c (test code = 57341) 5.4 % HEMOGLOBIN [id number] 00:00:00 Test Item Value Reference Range Interpretation Comments HEMOGLOBIN A1c (test code = 40179) 5.4 % CBC W/AUTO [id number] 00:00:00 Test Item Value Reference Range Interpretation [...] code = 1015) 229 K/UL CBC W/AUTO [id number] 00:00:00 Test Item Value Reference Range Interpretation [...] code = 1015) 229 K/UL CBC W/AUTO [id number] 00:00:00 Test Item Value Reference Range Interpretation [...] code = 1015) 229 K/UL COMPREHENSIVE METABOLIC [id number] 00:00:00 Test Item Value Reference Range Interpretation Comments GLUCOSE (test code = 2217) 91 MG/DL BUN (test code = 2208) 9 MG/DL CREATININE (test code = 2214) 0.52 MG/DL eGFR AMER. (test code 129 ML/MIN/1.73 = 79339) eGFR NON- AMER. (test 111 ML/MIN/1.73 code = 34124) CALC BUN/CREAT (test code = 17 RATIO [...] A/G RATIO (test code = 1.4 RATIO 4) BILIRUBIN, TOTAL (test code = 0.6 MG/DL 2206) ALKALINE PHOSPHATASE (test 84 U/L code = 2204) AST (test code = 2218) 22 U/L ALT (test code = 2219) 21 U/L COMPREHENSIVE METABOLIC [id number] 00:00:00 Test Item Value Reference Range Interpretation Comments GLUCOSE (test code = 2217) 91 MG/DL BUN (test code = 2208) 9 MG/DL CREATININE (test code = 2214) 0.52 MG/DL eGFR AMER. (test code 129 ML/MIN/1.73 = 28673) eGFR NON- AMER. (test 111 ML/MIN/1.73 code = 85677) CALC BUN/CREAT (test code = 17 RATIO [...] code = 2219) 21 U/L COMPREHENSIVE METABOLIC [id number] 00:00:00 Test Item Value Reference Range Interpretation Comments GLUCOSE (test code = 2217) 87 MG/DL BUN (test code = 2208) 11 MG/DL CREATININE (test code = 2214) 0.58 MG/DL eGFR AMER. (test code 125 ML/MIN/1.73 = 87817) eGFR NON- AMER. (test 107 ML/MIN/1.73 code = 64895) CALCULATED BUN/CREAT (test 19 RATIO code = [...] code = 2219) 18 U/L COMPREHENSIVE METABOLIC [id number] 00:00:00 Test Item Value Reference Range Interpretation Comments GLUCOSE (test code = 2217) 87 MG/DL BUN (test code = 2208) 11 MG/DL CREATININE (test code = 2214) 0.58 MG/DL eGFR AMER. (test code 125 ML/MIN/1.73 = 12996) eGFR NON- AMER. (test 107 ML/MIN/1.73 code = 35310) CALCULATED BUN/CREAT (test 19 RATIO code = [...] (test code = 2219) 18 U/L LIPID [id number] 00:00:00 Test Item Value Reference Range Interpretation Comments CHOLESTEROL (test code = 2210) 210 MG/DL TRIGLYCERIDES (test code = 2232) 121 MG/DL HDL CHOLESTEROL (test code = 2220) 50 MG/DL CALCULATED LDL CHOL (test code = 136 MG/DL 2237) RISK RATIO LDL/HDL (test code = 2.72 RATIO 2238) LIPID [id number] 00:00:00 Test Item Value Reference Range Interpretation Comments CHOLESTEROL (test code = 2210) 210 MG/DL TRIGLYCERIDES (test code = 2232) 121 MG/DL HDL CHOLESTEROL (test code = 2220) 50 MG/DL CALCULATED LDL CHOL (test code = 136 MG/DL 2237) RISK RATIO LDL/HDL (test code = 2.72 RATIO 2238) COMPREHENSIVE METABOLIC [id number] 00:00:00 Test Item Value Reference Range Interpretation Comments GLUCOSE (test code = 2217) 87 MG/DL BUN (test code = 2208) 11 MG/DL CREATININE (test code = 2214) 0.58 MG/DL eGFR AMER. (test code 125 ML/MIN/1.73 = 84215) eGFR NON- AMER. (test 107 ML/MIN/1.73 code = 24087) CALCULATED BUN/CREAT (test 19 RATIO code = [...] code = 2219) 18 U/L COMPREHENSIVE METABOLIC [id number] 00:00:00 Test Item Value Reference Range Interpretation Comments GLUCOSE (test code = 2217) 87 MG/DL BUN (test code = 2208) 11 MG/DL CREATININE (test code = 2214) 0.58 MG/DL eGFR AMER. (test code 125 ML/MIN/1.73 = 78735) eGFR NON- AMER. (test 107 ML/MIN/1.73 code = 31109) CALCULATED BUN/CREAT (test 19 RATIO code = [...] code = 2219) 18 U/L COMPREHENSIVE METABOLIC [id number] 00:00:00 Test Item Value Reference Range Interpretation Comments GLUCOSE (test code = 2217) 87 MG/DL BUN (test code = 2208) 11 MG/DL CREATININE (test code = 2214) 0.58 MG/DL eGFR AMER. (test code 125 ML/MIN/1.73 = 05552) eGFR NON- AMER. (test 107 ML/MIN/1.73 code = 13017) CALCULATED BUN/CREAT (test 19 RATIO code = [...] (test code = 2219) 18 U/L LIPID [id number] 00:00:00 Test Item Value Reference Range Interpretation Comments CHOLESTEROL (test code = 2210) 210 MG/DL TRIGLYCERIDES (test code = 2232) 121 MG/DL HDL CHOLESTEROL (test code = 2220) 50 MG/DL CALCULATED LDL CHOL (test code = 136 MG/DL 2236) RISK RATIO LDL/HDL (test code = 2.72 RATIO 2238) LIPID [id number] 00:00:00 Test Item Value Reference Range Interpretation Comments CHOLESTEROL (test code = 2210) 210 MG/DL TRIGLYCERIDES (test code = 2232) 121 MG/DL HDL CHOLESTEROL (test code = 2220) 50 MG/DL CALCULATED LDL CHOL (test code = 136 MG/DL 2236) RISK RATIO LDL/HDL (test code = 2.72 RATIO 2238) LIPID [id number] 00:00:00 Test Item Value Reference Range Interpretation Comments CHOLESTEROL (test code = 2210) 210 MG/DL TRIGLYCERIDES (test code = 2232) 121 MG/DL HDL CHOLESTEROL (test code = 2220) 50 MG/DL CALCULATED LDL CHOL (test code = 136 MG/DL 2237) RISK RATIO LDL/HDL (test code = 2.72 RATIO 2238) COMPREHENSIVE METABOLIC [id number] 00:00:00 Test Item Value Reference Range Interpretation Comments GLUCOSE (test code = 2217) 87 MG/DL BUN (test code = 2208) 11 MG/DL CREATININE (test code = 2214) 0.58 MG/DL eGFR AMER. (test code 125 ML/MIN/1.73 = 75703) eGFR NON- AMER. (test 107 ML/MIN/1.73 code = 32264) CALCULATED BUN/CREAT (test 19 RATIO code = [...] (test code = 2219) 18 U/L LIPID [id number] 00:00:00 Test Item Value Reference Range Interpretation Comments CHOLESTEROL (test code = 2210) 210 MG/DL TRIGLYCERIDES (test code = 2232) 121 MG/DL HDL CHOLESTEROL (test code = 2220) 50 MG/DL CALCULATED LDL CHOL (test code = 136 MG/DL 7) RISK RATIO LDL/HDL (test code = 2.72 RATIO 2238) COMPREHENSIVE METABOLIC [id number] 00:00:00 Test Item Value Reference Range Interpretation Comments GLUCOSE (test code = 2217) 87 MG/DL BUN (test code = 2208) 11 MG/DL CREATININE (test code = 2214) 0.58 MG/DL eGFR AMER. (test code 125 ML/MIN/1.73 = 13331) eGFR NON- AMER. (test 107 ML/MIN/1.73 code = 91611) CALCULATED BUN/CREAT (test 19 RATIO code = [...] (test code = 2219) 18 U/L LIPID [id number] 00:00:00 Test Item Value Reference Range Interpretation Comments CHOLESTEROL (test code = 2210) 210 MG/DL TRIGLYCERIDES (test code = 2232) 121 MG/DL HDL CHOLESTEROL (test code = 2220) 50 MG/DL CALCULATED LDL CHOL (test code = 136 MG/DL 2236) RISK RATIO LDL/HDL (test code = 2.72 RATIO 2238) COMPREHENSIVE METABOLIC [id number] 00:00:00 Test Item Value Reference Range Interpretation Comments GLUCOSE (test code = 2217) 87 MG/DL BUN (test code = 2208) 11 MG/DL CREATININE (test code = 2214) 0.58 MG/DL eGFR AMER. (test code 125 ML/MIN/1.73 = 18881) eGFR NON- AMER. (test 107 ML/MIN/1.73 code = 77789) CALCULATED BUN/CREAT (test 19 RATIO code = 2235) SODIUM (test code = 2231) 141 MEQ/L POTASSIUM (test code = 2228) 4.3 MEQ/L CHLORIDE (test code = 2215) 105 MEQ/L CARBON DIOXIDE (test code = 26 MEQ/L 220) CALCIUM (test code = 2209) 9.3 MG/DL PROTEIN, TOTAL (test code = 6.9 G/DL 222) ALBUMIN (test code = 2201) 3.9 G/DL CALCULATED GLOBULIN (test 3.0 G/DL code = 2240) CALCULATED A/G RATIO (test 1.3 RATIO code = 2234) BILIRUBIN, TOTAL (test code = 0.4 MG/DL 2206) ALKALINE PHOSPHATASE (test 70 U/L code = 2204) SGOT (AST) (test code = 2218) 16 U/L SGPT (ALT) (test code = 2219) 18 U/L COMPREHENSIVE METABOLIC [id number] 00:00:00 Test Item Value Reference Range Interpretation Comments GLUCOSE (test code = 2217) 87 MG/DL BUN (test code = 2208) 11 MG/DL CREATININE (test code = 2214) 0.58 MG/DL eGFR AMER. (test code 125 ML/MIN/1.73 = 56688) eGFR NON- AMER. (test 107 ML/MIN/1.73 code = 60168) CALCULATED BUN/CREAT (test 19 RATIO code = [...] (test code = 2219) 18 U/L LIPID [id number] 00:00:00 Test Item Value Reference Range Interpretation Comments CHOLESTEROL (test code = 2210) 210 MG/DL TRIGLYCERIDES (test code = 2232) 121 MG/DL HDL CHOLESTEROL (test code = 2220) 50 MG/DL CALCULATED LDL CHOL (test code = 136 MG/DL 2237) RISK RATIO LDL/HDL (test code = 2.72 RATIO 2238) LIPID [id number] 00:00:00 Test Item Value Reference Range Interpretation Comments CHOLESTEROL (test code = 2210) 210 MG/DL TRIGLYCERIDES (test code = 2232) 121 MG/DL HDL CHOLESTEROL (test code = 2220) 50 MG/DL CALCULATED LDL CHOL (test code = 136 MG/DL 2237) RISK RATIO LDL/HDL (test code = 2.72 RATIO 2238) CBC W/AUTO [id number] 00:00:00 Test Item Value Reference Range Interpretation [...] code = 1015) 223 K/UL CBC W/AUTO [id number] 00:00:00 Test Item Value Reference Range Interpretation [...] code = 1015) 223 K/UL CBC W/AUTO [id number] 00:00:00 Test Item Value Reference Range Interpretation [...] (test code = 1015) 223 K/UL HEMOGLOBIN [id number] 00:00:00 Test Item Value Reference Range Interpretation Comments HEMOGLOBIN A1c (test code = 83299) 5.5 % HEMOGLOBIN [id number] 00:00:00 Test Item Value Reference Range Interpretation Comments HEMOGLOBIN A1c (test code = 75487) 5.5 % HEMOGLOBIN [id number] 00:00:00 Test Item Value Reference Range Interpretation Comments HEMOGLOBIN A1c (test code = 91249) 5.5 % [id number] 00:00:00 Test Item Value Reference Range Interpretation Comments TSH (test code = 2821) 1.8 UIU/ML [id number] 00:00:00 Test Item Value Reference Range Interpretation Comments TSH (test code = 2821) 1.8 UIU/ML [id number] 00:00:00 Test Item Value Reference Range Interpretation Comments TSH (test code = 2821) 1.8 UIU/ML COMPREHENSIVE METABOLIC [id number] 00:00:00 Test Item Value Reference Range Interpretation Comments GLUCOSE (test code = 2217) 68 MG/DL BUN (test code = 2208) 11 MG/DL CREATININE (test code = 2214) 0.5 MG/DL eGFR AMER. (test code 159 ML/MIN/1.73 = 33494) eGFR NON- AMER. (test 131 ML/MIN/1.73 code = 89387) CALCULATED BUN/CREAT (test 22 RATIO code = 2235) SODIUM (test code = 2231) 139 MEQ/L POTASSIUM (test code = 2228) 4.5 MEQ/L CHLORIDE (test code = 2215) 105 MEQ/L CARBON DIOXIDE (test code = 25 MEQ/L 2206) CALCIUM (test code = 2209) 9.4 MG/DL [...] code = 2219) 19 U/L COMPREHENSIVE METABOLIC [id number] 00:00:00 Test Item Value Reference Range Interpretation Comments GLUCOSE (test code = 2217) 68 MG/DL BUN (test code = 2208) 11 MG/DL CREATININE (test code = 2214) 0.5 MG/DL eGFR AMER. (test code 159 ML/MIN/1.73 = 99961) eGFR NON- AMER. (test 131 ML/MIN/1.73 code = 51553) CALCULATED BUN/CREAT (test 22 RATIO code = 2235) SODIUM (test code = 2231) 139 MEQ/L POTASSIUM (test code = 2228) 4.5 MEQ/L CHLORIDE (test code = 2215) 105 MEQ/L CARBON DIOXIDE (test code = 25 MEQ/L 2206) CALCIUM (test code = 2209) 9.4 MG/DL [...] (test code = 2219) 19 U/L LIPID [id number] 00:00:00 Test Item Value Reference Range Interpretation Comments CHOLESTEROL (test code = 2210) 219 MG/DL TRIGLYCERIDES (test code = 2232) 176 MG/DL HDL CHOLESTEROL (test code = 2220) 53 MG/DL CALCULATED LDL CHOL (test code = 131 MG/DL 2237) RISK RATIO LDL/HDL (test code = 2.47 RATIO 2238) LIPID [id number] 00:00:00 Test Item Value Reference Range Interpretation Comments CHOLESTEROL (test code = 2210) 219 MG/DL TRIGLYCERIDES (test code = 2232) 176 MG/DL HDL CHOLESTEROL (test code = 2220) 53 MG/DL CALCULATED LDL CHOL (test code = 131 MG/DL 2237) RISK RATIO LDL/HDL (test code = 2.47 RATIO 2238) CBC W/AUTO [id number] 00:00:00 Test Item Value Reference Range Interpretation [...] code = 1015) 223 K/UL CBC W/AUTO [id number] 00:00:00 Test Item Value Reference Range Interpretation [...] code = 1015) 223 K/UL CBC W/AUTO [id number] 00:00:00 Test Item Value Reference Range Interpretation [...] (test code = 1015) 223 K/UL HEMOGLOBIN [id number] 00:00:00 Test Item Value Reference Range Interpretation Comments HEMOGLOBIN A1c (test code = 37666) 5.5 % HEMOGLOBIN [id number] 00:00:00 Test Item Value Reference Range Interpretation Comments HEMOGLOBIN A1c (test code = 06842) 5.5 % HEMOGLOBIN [id number] 00:00:00 Test Item Value Reference Range Interpretation Comments HEMOGLOBIN A1c (test code = 67893) 5.5 % [id number] 00:00:00 Test Item Value Reference Range Interpretation Comments TSH (test code = 2821) 1.8 UIU/ML [id number] 00:00:00 Test Item Value Reference Range Interpretation Comments TSH (test code = 2821) 1.8 UIU/ML [id number] 00:00:00 Test Item Value Reference Range Interpretation Comments TSH (test code = 2821) 1.8 UIU/ML COMPREHENSIVE METABOLIC [id number] 00:00:00 Test Item Value Reference Range Interpretation Comments GLUCOSE (test code = 2217) 68 MG/DL BUN (test code = 2208) 11 MG/DL CREATININE (test code = 2214) 0.5 MG/DL eGFR AMER. (test code 159 ML/MIN/1.73 = 27335) eGFR NON- AMER. (test 131 ML/MIN/1.73 code = 41359) CALCULATED BUN/CREAT (test 22 RATIO code = 2235) SODIUM (test code = 2231) 139 MEQ/L POTASSIUM (test code = 2228) 4.5 MEQ/L CHLORIDE (test code = 2215) 105 MEQ/L CARBON DIOXIDE (test code = 25 MEQ/L 220) CALCIUM (test code = 2209) 9.4 MG/DL PROTEIN, TOTAL (test code = 7.0 G/DL 222) ALBUMIN (test code = 2201) 4.1 G/DL CALCULATED GLOBULIN (test 2.9 G/DL code = 2240) CALCULATED A/G RATIO (test 1.4 RATIO code = 2234) BILIRUBIN, TOTAL (test code = 0.6 MG/DL 2206) ALKALINE PHOSPHATASE (test 63 U/L code = 2204) SGOT (AST) (test code = 2218) 18 U/L SGPT (ALT) (test code = 2219) 19 U/L COMPREHENSIVE METABOLIC [id number] 00:00:00 Test Item Value Reference Range Interpretation Comments GLUCOSE (test code = 2217) 68 MG/DL BUN (test code = 2208) 11 MG/DL CREATININE (test code = 2214) 0.5 MG/DL eGFR AMER. (test code 159 ML/MIN/1.73 = 99364) eGFR NON- AMER. (test 131 ML/MIN/1.73 code = 97749) CALCULATED BUN/CREAT (test 22 RATIO code = 2235) SODIUM (test code = 2231) 139 MEQ/L POTASSIUM (test code = 2228) 4.5 MEQ/L CHLORIDE (test code = 2215) 105 MEQ/L CARBON DIOXIDE (test code = 25 MEQ/L 2206) CALCIUM (test code = 2209) 9.4 MG/DL [...] code = 2219) 19 U/L COMPREHENSIVE METABOLIC [id number] 00:00:00 Test Item Value Reference Range Interpretation Comments GLUCOSE (test code = 2217) 68 MG/DL BUN (test code = 2208) 11 MG/DL CREATININE (test code = 2214) 0.5 MG/DL eGFR AMER. (test code 159 ML/MIN/1.73 = 91016) eGFR NON- AMER. (test 131 ML/MIN/1.73 code = 62148) CALCULATED BUN/CREAT (test 22 RATIO code = [...] (test code = 2219) 19 U/L LIPID [id number] 00:00:00 Test Item Value Reference Range Interpretation Comments CHOLESTEROL (test code = 2210) 219 MG/DL TRIGLYCERIDES (test code = 2232) 176 MG/DL HDL CHOLESTEROL (test code = 2220) 53 MG/DL CALCULATED LDL CHOL (test code = 131 MG/DL 2236) RISK RATIO LDL/HDL (test code = 2.47 RATIO 2238) LIPID [id number] 00:00:00 Test Item Value Reference Range Interpretation Comments CHOLESTEROL (test code = 2210) 219 MG/DL TRIGLYCERIDES (test code = 2232) 176 MG/DL HDL CHOLESTEROL (test code = 2220) 53 MG/DL CALCULATED LDL CHOL (test code = 131 MG/DL 2236) RISK RATIO LDL/HDL (test code = 2.47 RATIO 2237) CBC W/AUTO [id number] 00:00:00 Test Item Value Reference Range Interpretation [...] code = 1015) 223 K/UL CBC W/AUTO [id number] 00:00:00 Test Item Value Reference Range Interpretation [...] code = 1015) 223 K/UL CBC W/AUTO [id number] 00:00:00 Test Item Value Reference Range Interpretation [...] (test code = 1015) 223 K/UL HEMOGLOBIN [id number] 00:00:00 Test Item Value Reference Range Interpretation Comments HEMOGLOBIN A1c (test code = 23158) 5.5 % HEMOGLOBIN [id number] 00:00:00 Test Item Value Reference Range Interpretation Comments HEMOGLOBIN A1c (test code = 27846) 5.5 % HEMOGLOBIN [id number] 00:00:00 Test Item Value Reference Range Interpretation Comments HEMOGLOBIN A1c (test code = 23400) 5.5 % [id number] 00:00:00 Test Item Value Reference Range Interpretation Comments TSH (test code = 2821) 1.8 UIU/ML [id number] 00:00:00 Test Item Value Reference Range Interpretation Comments TSH (test code = 2821) 1.8 UIU/ML [id number] 00:00:00 Test Item Value Reference Range Interpretation Comments TSH (test code = 2821) 1.8 UIU/ML LIPID [id number] 00:00:00 Test Item Value Reference Range Interpretation Comments CHOLESTEROL (test code = 2210) 219 MG/DL TRIGLYCERIDES (test code = 2232) 176 MG/DL HDL CHOLESTEROL (test code = 2220) 53 MG/DL CALCULATED LDL CHOL (test code = 131 MG/DL 2237) RISK RATIO LDL/HDL (test code = 2.47 RATIO 2238) CBC W/AUTO [id number] 00:00:00 Test Item Value Reference Range Interpretation [...] code = 1015) 223 K/UL CBC W/AUTO [id number] 00:00:00 Test Item Value Reference Range Interpretation [...] (test code = 1015) 223 K/UL HEMOGLOBIN [id number] 00:00:00 Test Item Value Reference Range Interpretation Comments HEMOGLOBIN A1c (test code = 32022) 5.5 % HEMOGLOBIN [id number] 00:00:00 Test Item Value Reference Range Interpretation Comments HEMOGLOBIN A1c (test code = 76966) 5.5 % [id number] 00:00:00 Test Item Value Reference Range Interpretation Comments TSH (test code = 2821) 1.8 UIU/ML [id number] 00:00:00 Test Item Value Reference Range Interpretation Comments TSH (test code = 2821) 1.8 UIU/ML COMPREHENSIVE METABOLIC [id number] 00:00:00 Test Item Value Reference Range Interpretation Comments GLUCOSE (test code = 2217) 68 MG/DL BUN (test code = 2208) 11 MG/DL CREATININE (test code = 2214) 0.5 MG/DL eGFR AMER. (test code 159 ML/MIN/1.73 = 23049) eGFR NON- AMER. (test 131 ML/MIN/1.73 code = 43727) CALCULATED BUN/CREAT (test 22 RATIO code = [...] ALKALINE PHOSPHATASE (test 63 U/L code = 220) SGOT (AST) (test code = 2218) 18 U/L SGPT (ALT) (test code = 221) 19 U/L LIPID [id number] 00:00:00 Test Item Value Reference Range Interpretation Comments CHOLESTEROL (test code = 2210) 219 MG/DL TRIGLYCERIDES (test code = 2232) 176 MG/DL HDL CHOLESTEROL (test code = 2220) 53 MG/DL CALCULATED LDL CHOL (test code = 131 MG/DL 2236) RISK RATIO LDL/HDL (test code = 2.47 RATIO 8) CBC W/AUTO [id number] 00:00:00 Test Item Value Reference Range Interpretation [...] code = 1015) 223 K/UL CBC W/AUTO [id number] 00:00:00 Test Item Value Reference Range Interpretation [...] (test code = 1015) 223 K/UL HEMOGLOBIN [id number] 00:00:00 Test Item Value Reference Range Interpretation Comments HEMOGLOBIN A1c (test code = 60841) 5.5 % HEMOGLOBIN [id number] 00:00:00 Test Item Value Reference Range Interpretation Comments HEMOGLOBIN A1c (test code = 80749) 5.5 % [id number] 00:00:00 Test Item Value Reference Range Interpretation Comments TSH (test code = 2821) 1.8 UIU/ML [id number] 00:00:00 Test Item Value Reference Range Interpretation Comments TSH (test code = 2821) 1.8 UIU/ML COMPREHENSIVE METABOLIC [id number] 00:00:00 Test Item Value Reference Range Interpretation Comments GLUCOSE (test code = 2217) 68 MG/DL BUN (test code = 2208) 11 MG/DL CREATININE (test code = 2214) 0.5 MG/DL eGFR AMER. (test code 159 ML/MIN/1.73 = 42404) eGFR NON- AMER. (test 131 ML/MIN/1.73 code = 09116) CALCULATED BUN/CREAT (test 22 RATIO code = 2235) SODIUM (test code = 2231) 139 MEQ/L POTASSIUM (test code = 2228) 4.5 MEQ/L CHLORIDE (test code = 2215) 105 MEQ/L CARBON DIOXIDE (test code = 25 MEQ/L 2206) CALCIUM (test code = 2209) 9.4 MG/DL [...] (test code = 2219) 19 U/L LIPID [id number] 00:00:00 Test Item Value Reference Range Interpretation Comments CHOLESTEROL (test code = 2210) 219 MG/DL TRIGLYCERIDES (test code = 2232) 176 MG/DL HDL CHOLESTEROL (test code = 2220) 53 MG/DL CALCULATED LDL CHOL (test code = 131 MG/DL 2236) RISK RATIO LDL/HDL (test code = 2.47 RATIO 2238) CBC W/AUTO [id number] 00:00:00 Test Item Value Reference Range Interpretation [...] code = 1015) 223 K/UL CBC W/AUTO [id number] 00:00:00 Test Item Value Reference Range Interpretation [...] (test code = 1015) 223 K/UL HEMOGLOBIN [id number] 00:00:00 Test Item Value Reference Range Interpretation Comments HEMOGLOBIN A1c (test code = 80114) 5.5 % HEMOGLOBIN [id number] 00:00:00 Test Item Value Reference Range Interpretation Comments HEMOGLOBIN A1c (test code = 45478) 5.5 % [id number] 00:00:00 Test Item Value Reference Range Interpretation Comments TSH (test code = 2821) 1.8 UIU/ML [id number] 00:00:00 Test Item Value Reference Range Interpretation Comments TSH (test code = 2821) 1.8 UIU/ML COMPREHENSIVE METABOLIC [id number] 00:00:00 Test Item Value Reference Range Interpretation Comments GLUCOSE (test code = 2217) 68 MG/DL BUN (test code = 2208) 11 MG/DL CREATININE (test code = 2214) 0.5 MG/DL eGFR AMER. (test code 159 ML/MIN/1.73 = 03635) eGFR NON- AMER. (test 131 ML/MIN/1.73 code = 84946) CALCULATED BUN/CREAT (test 22 RATIO code = [...] code = 2219) 19 U/L COMPREHENSIVE METABOLIC [id number] 00:00:00 Test Item Value Reference Range Interpretation Comments GLUCOSE (test code = 2217) 68 MG/DL BUN (test code = 2208) 11 MG/DL CREATININE (test code = 2214) 0.5 MG/DL eGFR AMER. (test code 159 ML/MIN/1.73 = 86578) eGFR NON- AMER. (test 131 ML/MIN/1.73 code = 59034) CALCULATED BUN/CREAT (test 22 RATIO code = [...] (test code = 2219) 19 U/L LIPID [id number] 00:00:00 Test Item Value Reference Range Interpretation Comments CHOLESTEROL (test code = 2210) 219 MG/DL TRIGLYCERIDES (test code = 2232) 176 MG/DL HDL CHOLESTEROL (test code = 2220) 53 MG/DL CALCULATED LDL CHOL (test code = 131 MG/DL 2237) RISK RATIO LDL/HDL (test code = 2.47 RATIO 2238) LIPID [id number] 00:00:00 Test Item Value Reference Range Interpretation Comments CHOLESTEROL (test code = 2210) 219 MG/DL TRIGLYCERIDES (test code = 2232) 176 MG/DL HDL CHOLESTEROL (test code = 2220) 53 MG/DL CALCULATED LDL CHOL (test code = 131 MG/DL 7) RISK RATIO LDL/HDL (test code = 2.47 RATIO 2238)"
[2022-12-09] MEDS ORDERED: ASPIRIN 81 MG CHEWABLE TABLET ONE (13:26)
[2022-12-09] MEDS ORDERED: NA CHLORIDE 0.9% 1,000 ML ONE (13:26)
--- NOTE | 2022-12-09 13:40 | RAD REPORT ---
EXAM DESCRIPTION: [place] Single View12/09/2022 1:16 pm CLINICAL HISTORY: Chest pain COMPARISON: August 2022 FINDINGS: The lungs appear clear of acute infiltrate. The heart is normal size IMPRESSION: No acute abnormalities displayed
--- NOTE | 2022-12-09 13:43 | RAD REPORT ---
EXAM DESCRIPTION: CT - Head Brain Wo Cont - 12/09/2022 1:23 pm CLINICAL HISTORY: Headache COMPARISON: None TECHNIQUE: Computed axial tomography of the head was obtained. IV contrast was not requested. All CT scans are performed using dose optimization technique as appropriate and may include automated exposure control or mA/KV adjustment according to patient size. FINDINGS: An intracranial bleed is not seen The ventricles are normal in caliber No extra-axial fluid collection is noted. Prominent low-density area christian. Otherwise no significant abnormal density within the brain Fluid within the sinuses/ mastoids is not seen. IMPRESSION: Prominent low-density area christian is a common location for beam hardening artifact. An inf arct can also have this appearance. If the patient has clinical symptoms to suggest this then MRI would recommended
[2022-12-09 13:51] LABS: Absolute Lymphocytes (CBC) 2.2 K/uL (0.7-4.9); Hematocrit 46.9 % (36.0-45.0); Lymphocytes % 30.5 % (15.3-44.8); MCV 91.3 fL (80-100); MPV 9.7 fL (7.6-11.3); RBC Red Blood Cell Count 5.14 M/uL (3.86-4.86)
[2022-12-09 14:01] LABS: Protime INR 1.11
[2022-12-09 14:08] LABS: Albumin 3.8 g/dL (3.4-5.0); Bilirubin Direct 0.2 mg/dL (0-0.2); Bilirubin Indirect, Calculated 0.5 mg/dL (0.2-0.8); Bilirubin Total 0.7 mg/dL (0.2-1.0); Magnesium 2.3 mg/dL (1.6-2.4); Potassium 3.7 mEq/L (3.5-5.1); Protein, Total 8.2 g/dL (6.4-8.2); Troponin High Sensitivity 24.4 pg/mL (<58.9)
[2022-12-09] MEDS ORDERED: AMLODIPINE 5 MG TAB ONE (14:35)
--- NOTE | 2022-12-09 14:50 | ER ---
Nurse's Notes [facility] Name: Nat Reilly Age: 57 yrs Sex: Female : 1965 Arrival Date: 12/09/2022 Time: 12:56 Bed DIS4 Private MD: Diagnosis: Chest pain, unspecified;Dyspnea;Essential (primary) hypertension;Obesity, unspecified Presentation: 12/09 13:01 Chief complaint: Patient states: she was at the gas station and she started feeling cm10 dizzy and like she was going to pass out and started having shortness of breath. pt states that she went home and took her BP and it was 164/113. Pt currently reports dizziness, shortness of breath, palpitations and chest pain. Coronavirus screen: Vaccine status: Patient reports receiving the 2nd dose of the covid vaccine. Client denies travel out of the [place] in the last 14 days. Ebola Screen: Patient denies travel to an Ebola-affected area in the 21 days before illness onset. No symptoms or risks identified at this time. Initial Sepsis Screen: Does the patient meet any 2 criteria? No. Patient's initial sepsis screen is negative. Does the patient have a suspected source of infection? No. Patient's initial sepsis screen is negative. Risk Assessment: Do you want to hurt yourself or someone else? Patient reports no desire to harm self or others. Onset of symptoms was December 09, 2022. 13:01 Method Of Arrival: Ambulatory cm10 13:01 Acuity: KIRT 2 cm10 Historical: - Allergies: 13:04 Amoxicillin; cm10 - Home Meds: 13:04 Metoprolol Tartrate Oral [Active]; cm10 - PMHx: 13:04 Anxiety; Hypertension; cm10 - Immunization history:: Adult Immunizations. - Social history:: Smoking status: Patient denies any tobacco usage or history of. Screenin:40 [facility] ED Fall Risk Assessment (Adult) History of falling in the last 3 months, kc6 including since admission No falls in past 3 months (0 pts) Confusion or Disorientation No (0 pts) Intoxicated or Sedated No (0 pts) Impaired Gait No (0 pts) Mobility Assist Device Used No (0 pt) Altered Elimination No (0 pt) Score/Fall Risk Level 0 - 2 = Low Risk. Abuse screen: Denies threats or abuse. Denies injuries from another. Nutritional screening: No deficits noted. Tuberculosis screening: No symptoms or risk factors identified. Assessment: 13:42 General: Appears in no apparent distress. uncomfortable, obese, well groomed, Behavior kc6 is calm, cooperative, appropriate for age. Pain: Complains of pain in chest. Neuro: Faustin Agitation-Sedation Scale (RASS): 0 - Alert and Calm Level of Consciousness is awake, alert, obeys commands, Oriented to person, place, time, situation, Appropriate for age Reports dizziness. Cardiovascular: Reports chest pain, palpitations, Heart tones S1 S2 present Capillary refill < 3 seconds Rhythm is sinus rhythm. Respiratory: Reports shortness of breath Airway is patent Trachea midline Respiratory effort is even, unlabored, Respiratory pattern is regular, symmetrical, Breath sounds are clear bilaterally. GI: No signs and/or symptoms were reported involving the gastrointestinal system. : No signs and/or symptoms were reported regarding the genitourinary system. EENT: No signs and/or symptoms were reported regarding the EENT system. Derm: No signs and/or symptoms reported regarding the dermatologic system. Skin is intact, is healthy with good turgor, Skin is pink, warm \T\ dry. Musculoskeletal: No signs and/or symptoms reported regarding the musculoskeletal system. Circulation, motion, and sensation intact. Capillary refill < 3 seconds, Range of motion: intact in all extremities. 14:39 Reassessment: Patient appears in no apparent distress at this time. No changes from kc6 previously documented assessment. Patient and/or family updated on plan of care and expected duration. Pain level reassessed. Patient is alert, oriented x 3, equal unlabored respirations, skin warm/dry/pink. 15:07 Reassessment: Patient appears in no apparent distress at this time. No changes from kc6 previously documented assessment. Patient and/or family updated on plan of care and expected duration. Pain level reassessed. Patient is alert, oriented x 3, equal unlabored respirations, skin warm/dry/pink. 16:07 Reassessment: Patient appears in no apparent distress at this time. No changes from kc6 previously documented assessment. Patient and/or family updated on plan of care and expected duration. Pain level reassessed. Patient is alert, oriented x 3, equal unlabored respirations, skin warm/dry/pink. 16:44 Reassessment: attempted to call report to 4th floor. nurse nalini unabvailable at this kc6 time. 16:54 Reassessment: pt in US. iw 17:46 Reassessment: pt in MRI. kc6 Vital Signs: 13:01 BP 150 / 86; Pulse 71; Resp 18; Temp 98.4; Pulse Ox 100% on R/A; Weight 115.21 kg; cm10 Height 5 ft. 1 in. ; Pain 6/10; 13:44 BP 139 / 66; Pulse 68; Resp 25 S; Pulse Ox 99% on R/A; kc6 14:39 BP 136 / 73; Pulse 67; Resp 17 S; Pulse Ox 100% on R/A; kc6 15:07 BP 134 / 73; Pulse 68; Resp 19 S; Pulse Ox 100% on R/A; kc6 16:44 BP 130 / 73; Pulse 64; Resp 22 S; Pulse Ox 99% on R/A; kc6 13:01 Body Mass Index 47.99 (115.21 kg, 154.94 cm) cm10 13:01 Pain Scale: Adult cm10 ED Course: 12:57 Patient arrived in ED. am2 13:02 Diego Enriquez MD is Attending Physician. parveen 13:04 Triage completed. cm10 13:05 Arm band placed on Patient placed in an exam room, on a stretcher. cm10 13:14 Any Rey RN is Primary Nurse. kc6 13:17 XRAY Chest (1 view) In Process Unspecified. EDMS 13:25 CT Head Brain wo Cont In Process Unspecified. EDMS 13:40 Patient has correct armband on for positive identification. Bed in low position. Call kc6 light in reach. Side rails up X2. Adult w/ patient. Client placed on continuous cardiac and pulse oximetry monitoring. NIBP monitoring applied. surveillance monitor on. 13:40 Inserted saline lock: 20 gauge in left antecubital area, using aseptic technique. kc6 ,using aseptic technique. placed by Cherise Kimball RN Blood collected. 14:47 He Swanson MD is Hospitalizing Provider. parveen 16:50 No provider procedures requiring assistance completed. Patient admitted, IV remains in iw place. Administered Medications: 13:34 Drug: Aspirin PO Chewable Tablet 324 mg Route: PO; kc6 14:39 Follow up: Response: No adverse reaction kc6 13:40 Drug: NS 0.9% IV 1000 ml Route: IV; Rate: 1 bolus; Site: left antecubital; kc6 16:45 Follow up: Response: No adverse reaction; IV Status: Completed infusion; IV Intake: kc6 1000ml 14:27 Drug: Norvasc PO 5 mg Route: PO; kc6 15:33 Follow up: Response: No adverse reaction; Blood pressure is unchanged kc6 15:04 Drug: Acetaminophen PO 1000 mg Route: PO; kc6 15:52 Follow up: Response: No adverse reaction; Pain is unchanged, physician notified kc6 Medication: 16:50 VIS not applicable for this client. iw Intake: 16:45 IV: 1000ml; Total: 1000ml. kc6 Outcome: 14:49 Decision to Hospitalize by Provider. [facility] 16:50 Admitted to Med/surg accompanied by tech, via wheelchair, with chart, Report called to kyle rOlando RN 16:50 Condition: stable 16:50 Instructed on the need for admit. iw 17:48 Patient left the ED. kc6 Signatures: Dispatcher [employer] EDMS Diego Enriquez MD MD cha Williams, Irene, RN RN Ester Sanchez Kaitlyn, RN RN Marlin Lo RN RN cm10 Corrections: (The following items were deleted from the chart) 13:05 13:01 Chief complaint: Patient states: she was at the gas station and she started cm10 feeling dizzy and like she was going to pass out and started having shortness of breath. pt states that she went home and took her BP and it was 179/113. Pt currently reports dizziness, shortness of breath, palpitations and chest pain. cm10 13:05 13:01 Coronavirus screen: Client denies travel out of the [place] in the last 14 days. [id number]
--- NOTE | 2022-12-09 14:50 | EDPHYS ---
Physician Documentation [facility] Name: Nat Reilly Age: 57 yrs Sex: Female : 1965 Arrival Date: 12/09/2022 Time: 12:56 Bed DIS4 Private MD: ED Physician Diego Enriquez HPI: 12/09 13:07 This 57 yrs old Female presents to ER via Ambulatory with complaints of High parveen Blood Pressure, Breathing Difficulty. 13:07 The patient has elevated blood pressure and discovered this at home, with a home parveen device. Onset: The symptoms/episode began/occurred this morning, today. Modifying factors: The symptoms are aggravated by activity, The symptoms are alleviated by remaining still. Associated signs and symptoms: Pertinent positives: dizziness, lightheadedness. Severity of symptoms: At its worst the blood pressure was moderate, in the emergency department the blood pressure is unchanged. The patient has not experienced similar symptoms in the past. Historical: - Allergies: 13:04 Amoxicillin; cm10 - Home Meds: 13:04 Metoprolol Tartrate Oral [Active]; cm10 - PMHx: 13:04 Anxiety; Hypertension; cm10 - Immunization history:: Adult Immunizations. - Social history:: Smoking status: Patient denies any tobacco usage or history of. ROS: 13:08 Constitutional: Negative for fever, chills, and weight loss, Eyes: Negative for injury, parveen pain, redness, and discharge, ENT: Negative for injury, pain, and discharge, Neck: Negative for injury, pain, and swelling, Abdomen/GI: Negative for abdominal pain, nausea, vomiting, diarrhea, and constipation, Back: Negative for injury and pain, : Negative for injury, bleeding, discharge, and swelling, MS/Extremity: Negative for injury and deformity, Skin: Negative for injury, rash, and discoloration, Psych: Negative for depression, anxiety, suicide ideation, homicidal ideation, and hallucinations, Allergy/Immunology: Negative for hives, rash, and allergies, Endocrine: Negative for neck swelling, polydipsia, polyuria, polyphagia, and marked weight changes, Hematologic/Lymphatic: Negative for swollen nodes, abnormal bleeding, and unusual bruising. 13:08 Cardiovascular: Positive for chest pain, of the chest. 13:08 Respiratory: Positive for shortness of breath, at rest. 13:08 Neuro: Positive for dizziness, headache. Exam: 13:08 Constitutional: This is a well developed, well nourished patient who is awake, alert, parveen and in no acute distress. Head/Face: Normocephalic, atraumatic. Eyes: Pupils equal round and reactive to light, extra-ocular motions intact. Lids and lashes normal. Conjunctiva and sclera are non-icteric and not injected. Cornea within normal limits. Periorbital areas with no swelling, redness, or edema. ENT: Nares patent. No nasal discharge, no septal abnormalities noted. Tympanic membranes are normal and external auditory canals are clear. Oropharynx with no redness, swelling, or masses, exudates, or evidence of obstruction, uvula midline. Mucous membranes moist. Neck: Trachea midline, no thyromegaly or masses palpated, and no cervical lymphadenopathy. Supple, full range of motion without nuchal rigidity, or vertebral point tenderness. No Meningismus. Chest/axilla: Normal chest wall appearance and motion. Nontender with no deformity. No lesions are appreciated. Cardiovascular: Regular rate and rhythm with a normal S1 and S2. No gallops, murmurs, or rubs. Normal PMI, no JVD. No pulse deficits. Respiratory: Lungs have equal breath sounds bilaterally, clear to auscultation and percussion. No rales, rhonchi or wheezes noted. No increased work of breathing, no retractions or nasal flaring. Abdomen/GI: Soft, non-tender, with normal bowel sounds. No distension or tympany. No guarding or rebound. No evidence of tenderness throughout. Back: No spinal tenderness. No costovertebral tenderness. Full range of motion. Skin: Warm, dry with normal turgor. Normal color with no rashes, no lesions, and no evidence of cellulitis. MS/ Extremity: Pulses equal, no cyanosis. Neurovascular intact. Full, normal range of motion. Neuro: Awake and alert, GCS 15, oriented to person, place, time, and situation. Cranial nerves II-XII grossly intact. Motor strength 5/5 in all extremities. Sensory grossly intact. Cerebellar exam normal. Normal gait. Psych: Awake, alert, with orientation to person, place and time. Behavior, mood, and affect are within normal limits. 13:08 Musculoskeletal/extremity: Extremities: all appear grossly normal, with no appreciated pain with palpation, ROM: no acute changes, Circulation is intact in all extremities. Sensation intact. Compartment Syndrome exam of affected extremity: is normal. DVT Exam: No signs of deep vein thrombosis. no pain, no swelling, no tenderness, negative Homans' sign noted on exam, no appreciated bluish discoloration, no erythema, no increased warmth. 13:47 ECG was reviewed by the Attending Physician. [facility] Vital Signs: 13:01 BP 150 / 86; Pulse 71; Resp 18; Temp 98.4; Pulse Ox 100% on R/A; Weight 115.21 kg; cm10 Height 5 ft. 1 in. ; Pain 6/10; 13:44 BP 139 / 66; Pulse 68; Resp 25 S; Pulse Ox 99% on R/A; kc6 14:39 BP 136 / 73; Pulse 67; Resp 17 S; Pulse Ox 100% on R/A; kc6 15:07 BP 134 / 73; Pulse 68; Resp 19 S; Pulse Ox 100% on R/A; kc6 16:44 BP 130 / 73; Pulse 64; Resp 22 S; Pulse Ox 99% on R/A; kc6 13:01 Body Mass Index 47.99 (115.21 kg, 154.94 cm) cm10 13:01 Pain Scale: Adult cm10 MDM: 13:10 Antibiotic administration: Not indicated. Differential diagnosis: Anemia asthma, parveen Bronchitis CHF exacerbation, Chronic Obstructive Pulmonary Disease hypertensive crisis, Malignant HTN, CVA, intracerebral hemorrhage, pneumonia, pulmonary edema, Pulmonary Embolism reactive airway disease. HEART Score: History: Slightly Suspicious (0), ECG: Normal (0), Age: > 45 and < 65 years (1), Risk Factors: > or = 3 Risk factors for atherosclerotic disease (2), [Hypercholesterolemia] [Hypertension] [Obesity] Troponin: < or = 1 x Normal Limit (0). Differential diagnosis: cardiac arrhythmia, generalized weakness, idiopathic dizziness, near-syncope. The patient was given aspirin in the Emergency Department. LG Risk Score: 1 - Three or more CAD risk factors, [Family Hx], [HTN], [DM], TOTAL SCORE = 1. Immunization status: Influenza vaccine: within last 5 years. Data reviewed: vital signs, nurses notes, lab test result(s), EKG, radiologic studies, CT scan, plain films. Consideration of Admission/Observation Patient was admitted/placed on observation. Escalation of care including admission/observation considered. I considered the following discharge prescriptions or medication management in the emergency department Medications were administered in the Emergency Department. See MAR. Independent interpretation of the following test(s) in the Emergency Department EKG: See my EKG interpretation above. Test considered but Not performed: MRI: NO MRI BRAIN. 13:19 Patient medically screened. [facility] 12/09 13:05 Order name: Basic Metabolic Panel; Complete Time: 14:18 [facility] 12/09 13:05 Order name: CBC with Diff; Complete Time: 14:18 [facility] 12/09 13:05 Order name: LFT's; Complete Time: 14:18 [facility] 12/09 13:05 Order name: Magnesium; Complete Time: 14:18 [facility] 12/09 13:05 Order name: NT PRO-BNP; Complete Time: 14:18 [facility] 12/09 13:05 Order name: PT-INR; Complete Time: 14:18 [facility] 12/09 13:05 Order name: Troponin HS; Complete Time: 14:18 [facility] 12/09 13:05 Order name: Urinalysis w/ reflexes [facility] 12/09 13:05 Order name: Lipase; Complete Time: 14:18 [facility] 12/09 13:45 Order name: D-Dimer; Complete Time: 14:18 [facility] 12/09 16:10 Order name: Magnesium [facility] 12/09 16:10 Order name: Phosphorus [facility] 12/09 16:10 Order name: T4 Free [facility] 12/09 16:10 Order name: Thyroid Stimulating Hormone [facility] 12/09 16:10 Order name: Urinalysis w/ reflexes [facility] 12/09 16:10 Order name: Basic Metabolic Panel [facility] 12/09 16:10 Order name: Basic Metabolic Panel EDMS 12/09 16:10 Order name: CBC with Automated Diff EDMS 12/09 16:10 Order name: CBC with Automated Diff EDMS 12/09 16:18 Order name: Troponin High Sensitivity [facility] 12/09 16:18 Order name: Troponin High Sensitivity [facility] 12/09 16:18 Order name: Troponin High Sensitivity EDMS 12/09 13:05 Order name: XRAY Chest (1 view); Complete Time: 14:18 [facility] 12/09 13:09 Order name: CT Head Brain wo Cont; Complete Time: 14:18 parveen 12/09 15:52 Order name: Brain Wo Cont [facility] 12/09 16:10 Order name: Echo with Doppler [facility] 12/09 16:10 Order name: ERT ORTHOSTATIC V/S [facility] 12/09 16:10 Order name: ERT ORTHOSTATIC V/S [facility] 12/09 16:10 Order name: ERT ORTHOSTATIC V/S [facility] 12/09 16:10 Order name: ERT ORTHOSTATIC V/S [facility] 12/09 16:10 Order name: Carotid Artery Bilateral [facility] 12/09 13:05 Order name: EKG; Complete Time: 13:06 [facility] 12/09 16:10 Order name: CONS Physician Consult [facility] 12/09 16:10 Order name: Heart Healthy [facility] 12/09 13:05 Order name: Cardiac monitoring; Complete Time: 13:34 [facility] 12/09 13:05 Order name: EKG - Nurse/Tech; Complete Time: 13:34 [facility] 12/09 13:05 Order name: IV Saline Lock; Complete Time: 13:40 [facility] 12/09 13:05 Order name: Labs collected and sent; Complete Time: 13:40 [facility] 12/09 13:05 Order name: O2 Per Protocol; Complete Time: 13:34 [facility] 12/09 13:05 Order name: O2 Sat Monitoring; Complete Time: 13:34 parveen EC:47 Rate is 71 beats/min. Rhythm is regular. QRS Fackler is Normal. WI interval is normal. QRS parveen interval is normal. QT interval is normal. No Q waves. T waves are Normal. No ST changes noted. Clinical impression: NSR w/ Non-specific ST/T Changes and No evidence of ischemia. Interpreted by me. Reviewed by me. Administered Medications: 13:34 Drug: Aspirin PO Chewable Tablet 324 mg Route: PO; kc6 14:39 Follow up: Response: No adverse reaction kc6 13:40 Drug: NS 0.9% IV 1000 ml Route: IV; Rate: 1 bolus; Site: left antecubital; kc6 16:45 Follow up: Response: No adverse reaction; IV Status: Completed infusion; IV Intake: kc6 1000ml 14:27 Drug: Norvasc PO 5 mg Route: PO; kc6 15:33 Follow up: Response: No adverse reaction; Blood pressure is unchanged kc6 15:04 Drug: Acetaminophen PO 1000 mg Route: PO; kc6 15:52 Follow up: Response: No adverse reaction; Pain is unchanged, physician notified kc6 Disposition Summary: 12/09/22 14:49 Hospitalization Ordered Hospitalization Status: Observation parveen Provider: He Swanson cha Location: Telemetry/MedSurg (observation) parveen Condition: Stable parveen Problem: new parveen Symptoms: have improved parveen Bed/Room Type: Standard parveen Room Assignment: 405(12/09/22 16:32) bd Diagnosis - Chest pain, unspecified parveen - Dyspnea parveen - Essential (primary) hypertension parveen - Obesity, unspecified parveen Forms: - Medication Reconciliation Form parveen - SBAR form parveen Signatures: Dispatcher [employer] EDMS Noa Mejia bd Diego Enriquez MD MD cha Campbell, Kaitlyn RN RN kc6 Marlin Dinh RN RN cm10 Corrections: (The following items were deleted from the chart) 13:44 13:08 D-DIMER+COAG.LAB.BRZ ordered. EDMS EDMS 15:52 14:21 MR STROKE PROTOCOL+MRI.RAD.BRZ ordered. EDMS EDMS 16:32 14:49 parveen bd
[2022-12-09] MEDS ORDERED: ACETAMINOPHEN 500 MG TAB ONE (15:11)
[2022-12-09 15:12] LABS: Specific Gravity 1.009 (1.005-1.030); Urine Bacteria None Seen /HPF (<20); Urine Bilirubin NEGATIVE (Negative); Urine Blood Negative (Negative); Urine Clarity Turbid (Clear); Urine Color Light-Yellow (Yellow); Urine Glucose NEGATIVE (Negative); Urine Mucus Slight /HPF (None Seen); Urine Protein NEGATIVE (Negative); Urine RBC None Seen /HPF (None Seen); Urine Urobilinogen Normal (Normal)
[2022-12-09] MEDS ORDERED: TRAMADOL HCL 50 MG TAB PO PRN (15:58)
[2022-12-09] MEDS ORDERED: ACETAMIN/CAFFEINE/BUTALB TAB PO PRN (16:01)
[2022-12-09] MEDS ORDERED: ONDANSETRON 4 MG/2 ML VIAL IV PRN (16:08)
[2022-12-09] MEDS ORDERED: MECLIZINE HCL 12.5 MG TAB PO PRN (16:09)
[2022-12-09] MEDS ORDERED: HYDRALAZINE HCL 20 MG/ML VIAL IV PRN (16:12)
--- NOTE | 2022-12-09 16:12 | P.HP ---
Certification for Inpatient Patient admitted to: Observation With expected LOS: <2 Midnights Patient will require the following post-hospital care: None Practitioner: I am a practitioner with admitting privileges, knowledge of patient current condition, hospital course, and medical plan of care. Services: Services provided to patient in accordance with Admission requirements found in Title 42 Section 412.3 of the Code of Federal Regulations Patient History Date of Service: 12/09/22 Reason for admission: Dizziness, near syncope, chest pain, vertigo. History of Present Illness: Patient is a 57-year-old female with a past medical history significant for anxiety disorder, morbid obesity, hypertension who presents with complaint of dizziness, near syncope and vertigo. Patient reported that she went to buy gas and on getting back to her truck patient started experiencing symptoms. Patient reported that she sat in the truck and called her family member. Patient also reports left chest wall pain rated as 7/10 in severity and described as squeezing in quality.. Patient reported associated signs and symptoms of shortness of breath, headache, diaphoresis, nausea and palpitations. Patient denies any other signs and symptoms. Symptoms are aggravated or relieved by nothing. Patient reported that her family checked her blood pressure and blood pressure was noted to be 163/113. Patient was brought to the hospital for medical evaluation. Allergies hydrocodone Adverse Reaction (Mild, Verified 06/11/15 22:44) Itching/Hives/Rash Hydrocodone-Acetaminophen Allergy (Uncoded 07/01/15 21:50) Unknown N Allergy (Uncoded 01/03/16 00:01) Unknown Home medications list reviewed: No Home Medications: Metoprolol Tartrate [Lopressor] 50 mg PO BID 06/11/15 Pantoprazole Sodium 40 mg PO DAILY 12/09/22 - Past Medical/Surgical History Diabetic: No -: HTN -: CHRONIC NECK PAIN -: Anxiety disorder -: Morbid obesity -: Shingles. -: CHOLECYSTECTOMY -: - Family History Father -: Heart disease, Hypertension, Diabetes Mother -: Liver disease Sister -: Heart disease, Other (see notes) Notes: FIBROMYALGIA Brother -: Diabetes - Social History Smoking Status: Never smoker Alcohol use: No CD- Drugs: No Caffeine use: Yes Place of Residence: Home Review of Systems General: Sweats Eyes: Unremarkable ENT: Unremarkable Respiratory: Shortness of Breath Cardiovascular: Chest Pain, Palpitations Gastrointestinal: Nausea Genitourinary: Unremarkable Musculoskeletal: Unremarkable Integumentary: Other (Mild rash secondary to shingles.) Neurological: Other (Dizziness, near syncope, vertigo, headache) Lymphatics: Unremarkable Physical Examination - Physical Exam General: Alert, In no apparent distress, Oriented x3, Cooperative HEENT: Atraumatic, PERRLA, Mucous membr. moist/pink, EOMI, Sclerae nonicteric Neck: Supple, 2+ carotid pulse no bruit, No LAD, Without JVD or thyroid abnormality Respiratory: Clear to auscultation bilaterally, Normal air movement Cardiovascular: No edema, Regular rate/rhythm, Normal S1 S2 Capillary refill: <2 Seconds Gastrointestinal: Normal bowel sounds, No tenderness Musculoskeletal: No clubbing, No tenderness Integumentary: No rashes, No breakdown, No significant lesion, Other (Rash secondary to shingles.) Neurological: Normal speech, Normal tone, Normal affect Lymphatics: No axilla or inguinal lymphadenopathy - Studies Laboratory Data (last 24 hrs) 12/09/22 12/09/22 12/09/22 13:38 13:38 13:38 WBC 7.10 Hgb 15.7 H Hct 46.9 H Plt Count 205 PT 12.2 INR 1.11 Sodium 138 Potassium 3.7 BUN 11 Creatinine 0.72 Glucose 102 Magnesium 2.3 Total Bilirubin 0.7 AST 22 ALT 39 Alkaline Phosphatase 91 Lipase 36 Assessment and Plan - Plan --Chest pain. To rule out ACS. Will trend serial troponins. Cardiology consulted. Echocardiogram pending to assess cardiac structures and functions. We will await further recommendation from food crops farm hand. --Hypertensive urgency. Continue home medications and hydralazine as needed. --GERD. Continue Protonix. --Dizziness\near syncope\vertigo. MRI brain unremarkable for any acute intracranial abnormality. Carotid Doppler to rule out any carotid artery stenosis. Echocardiogram pending. We will get some orthostatic vital signs. Continue meclizine as needed for vertigo. Fall precautions. Continue supportive care. --Anxiety disorder. Ativan as needed. --Shingles. Noted on the right chest wall and right upper back. Patient reported that she had an outbreak of shingles 2 weeks ago. Rash almost resolved. Patient denies any pain. Continue home medication when available. --Class III obesity. Likely secondary to excess calories intake. Patient counseled on weight reduction, diet and exercise therapy. --DVT prophylaxis with Lovenox subQ. Discharge Plan: Home Plan to discharge in: 48 Hours - Advance Directives Does patient have a Living Will: No Does patient have a Durable POA for Healthcare: Yes - Code Status/Comfort Care Code Status Assessed: Yes Physician Review: Patient Assessed, Agree with Above Assessment and Plan Critical Care: No
--- NOTE | 2022-12-09 18:02 | RAD REPORT ---
EXAM DESCRIPTION: MRI - Brain Wo Cont - 12/09/2022 5:51 pm CLINICAL HISTORY: syncope/ headache COMPARISON: Head CT December 09, 2022 TECHNIQUE: Axial, sagittal, and coronal magnetic resonance images of the brain were obtained. FINDINGS: No significant abnormal signal within the brain. Brainstem demonstrates normal signal Diffusion-weighted/ADC mapping does not reveal evidence of acute infarction. The ventricles are normal caliber. An extra-axial fluid collection is not noted. Fluid within the sinuses/mastoids is not seen IMPRESSION: No acute intracranial abnormality noted
[2022-12-09] MEDS: ENOXAPARIN 40 MG/0.4 ML SQ SCH (18:20)
[2022-12-09] MEDS: ACETAMINOPHEN 325 MG TABLET PO PRN (18:20)
[2022-12-09 18:37] VITALS: BMI 51.7
--- NOTE | 2022-12-09 19:15 | RAD REPORT ---
EXAM DESCRIPTION: USCarotid Artery Bilateral12/09/2022 5:27 pm CLINICAL HISTORY: syncope COMPARISON: None FINDINGS: The velocity of the right internal carotid artery equals 75 cm/sec. The right ICA/CCA rati o 1.2 The velocity of the left internal carotid artery equals 60 cm/sec. The left ICA/CCA ratio 1.1 No significant plaque seen The vertebral arteries demonstrate antegrade flow IMPRESSION: Unremarkable exam NASCET criteria used. Mild 0-49% stenosis Moderate 50-69% stenosis Severe 70-99% stenosis
[2022-12-09] MEDS ORDERED: LORAZEPAM 0.5 MG TABLET PO PRN (19:29)
[2022-12-09 20:57] LABS: Magnesium 2.1 mg/dL (1.6-2.4); Phosphorus 2.8 mg/dL (2.5-4.9); Thyroid Stimulating Hormone 3.35 uIU/mL (0.358-3.740)
[2022-12-09] MEDS: METOPROLOL TAR 50 MG TAB PO SCH (22:32)
[2022-12-09 23:04] VITALS: O2SAT 98
[2022-12-10] MEDS: ACETAMINOPHEN 325 MG TABLET PO PRN (01:41)
[2022-12-10 06:27] LABS: Absolute Lymphocytes (CBC) 2.1 K/uL (0.7-4.9); Hematocrit 42.2 % (36.0-45.0); Lymphocytes % 39.6 % (15.3-44.8); MCV 91.3 fL (80-100); MPV 9.6 fL (7.6-11.3); RBC Red Blood Cell Count 4.62 M/uL (3.86-4.86)
[2022-12-10 06:40] LABS: Potassium 3.6 mEq/L (3.5-5.1)
[2022-12-10 07:03] LABS: Specific Gravity 1.012 (1.005-1.030); Urine Bacteria None Seen /HPF (<20); Urine Bilirubin NEGATIVE (Negative); Urine Blood Negative (Negative); Urine Clarity Turbid (Clear); Urine Color Light-Yellow (Yellow); Urine Glucose NEGATIVE (Negative); Urine Mucus Slight /HPF (None Seen); Urine Protein NEGATIVE (Negative); Urine RBC <5 /HPF (None Seen); Urine Urobilinogen Normal (Normal); Urine pH 5.5 (5.0-7.0)
--- NOTE | 2022-12-10 07:24 | P.PN ---
Date of Service: 12/10/22 Subjective: ROS: 10 point ROS as noted above, otherwise negative Physical Exam: GEN: Alert, oriented, NAD HEENT: Normal conjunctiva, sclera anicteric CV: Regular rate and rhythm, no edema Pulm: Nonlabored respirations on room air ABD: Soft, nontender, nondistended MSK: No joint tenderness Integumentary: Rash secondary to shingles Neuro: Normal speech, normal affect vitals reviewed Problem List: Chest pain Dizziness\near syncope\vertigo Hypertensive urgency Shingles GERD Anxiety disorder Class III obesity Chest pain trend troponins - negative x3. BNP 372 Cardiology consulted. Echo ordered Dizziness\near syncope\vertigo MRI brain(12/09): unremarkable for any acute intracranial abnormality. Carotid Doppler (12/09): unremarkable Echo pending. check orthostatic vital signs. cont PRN meclizine Fall precautions. Continue supportive care. Hypertensive urgency Continue home medications and hydralazine as needed. Shingles Noted on the right chest wall and right upper back. Patient reported that she had an outbreak of shingles 2 weeks ago. Rash almost resolved. Patient denies any pain. Continue home medication when available. GERD. Continue Protonix. Anxiety disorder. Ativan as needed. Class III obesity. Likely secondary to excess calories intake. Patient counseled on weight reduction, diet and exercise therapy. VTE: Lovenox Code: Full Dispo: Home
[2022-12-10] MEDS: METOPROLOL TAR 50 MG TAB PO SCH (08:33)
[2022-12-10] MEDS: ENOXAPARIN 40 MG/0.4 ML SQ SCH (08:33)
[2022-12-10] MEDS ORDERED: POTASSIUM CL SA 10 MEQ TAB PO ONE (09:00)
[2022-12-10] MEDS ORDERED: ASPIRIN 81 MG CHEWABLE TABLET PO SCH (09:00)
[2022-12-10] MEDS ORDERED: PANTOPRAZOLE 40MG TABLET PO SCH (09:00)
--- NOTE | 2022-12-10 13:04 | P.DS ---
Admission Date: 12/09/22 Discharge Date: 12/10/22 Reason for Admission: Dizziness, near syncope, chest pain, vertigo. Consultations: Cardiology - Dr. Ortiz Brief History of Present Illness: 57yo F, PMH: anxiety disorder, morbid obesity, hypertension who presents with complaint of dizziness, near syncope and vertigo. Patient reported that she went to buy gas and on getting back to her truck patient started experiencing symptoms. Patient reported that she sat in the truck and called her family member. Patient also reports left chest wall pain rated as 7/10 in severity and described as squeezing in quality.. Patient reported associated signs and symptoms of shortness of breath, headache, diaphoresis, nausea and palpitations. Patient denies any other signs and symptoms. Symptoms are aggravated or relieved by nothing. Patient reported that her family checked her blood pressure and blood pressure was noted to be 163/113. Hospital Course: Problem List: Chest pain Dizziness\near syncope\vertigo Hypertensive urgency Shingles GERD Anxiety disorder Class III obesity Patients presented with chest pain, near syncope, dizziness. Troponins were negative x3. BNP 372. MRI brain, Carotid ultrasound were both unremarkable for acute findings. No significant plaque seen. Cardiology was consulted. Dr. Ortiz felt there was no further cardiac testing / procedures warranted while in hospital. Recommended follow up in office for outpatient echocardiogram and stress testing. no new medications. continue home meds as previously prescribed. Follow up: PCP 3-5 days Cardiology within 1-2 weeks Recommend follow up with PCP for sleep study to rule out sleep apnea. Physical Exam: GEN: Alert, oriented, NAD HEENT: Normal conjunctiva, sclera anicteric CV: Regular rate and rhythm, no edema Pulm: Nonlabored respirations on room air ABD: Soft, nontender, nondistended MSK: No joint tenderness Integumentary: Rash secondary to shingles Neuro: Normal speech, normal affect Vital Signs/Physical Exam: Temp Pulse Resp BP Pulse Ox 97.3 F 65 16 150/69 H 98 12/10/22 08:00 12/10/22 08:33 12/10/22 08:00 12/10/22 08:33 12/10/22 08:00 Laboratory Data at Discharge: WBC 5.30 thou/uL (4.3-10.9) 12/10/22 06:07 Hgb 14.2 g/dL (12.0-15.0) D 12/10/22 06:07 Hct 42.2 % (36.0-45.0) 12/10/22 06:07 Plt Count 167 thou/uL (152-406) 12/10/22 06:07 PT 12.2 SECONDS (9.5-12.5) 12/09/22 13:38 INR 1.11 12/09/22 13:38 Sodium 140 mEq/L (136-145) 12/10/22 06:07 Potassium 3.6 mEq/L (3.5-5.1) 12/10/22 06:07 BUN 8 mg/dL (7-18) 12/10/22 06:07 Creatinine 0.52 mg/dL (0.55-1.02) L 12/10/22 06:07 Glucose 102 mg/dL (74-106) 12/10/22 06:07 Phosphorus 2.8 mg/dL (2.5-4.9) 12/09/22 18:56 Magnesium 2.1 mg/dL (1.6-2.4) 12/09/22 18:56 Total Bilirubin 0.7 mg/dL (0.2-1.0) 12/09/22 13:38 AST 22 U/L (15-37) 12/09/22 13:38 ALT 39 U/L (13-56) 12/09/22 13:38 Alkaline Phosphatase 91 U/L (45-117) 12/09/22 13:38 Lipase 36 U/L (13-75) 12/09/22 13:38 Home Medications: Metoprolol Tartrate [Lopressor] 50 mg PO BID 06/11/15 Pantoprazole Sodium 40 mg PO DAILY 12/09/22 Physician Discharge Instructions: Patients presented with chest pain, near syncope, dizziness. Troponins were negative x3. BNP 372. MRI brain, Carotid ultrasound were both unremarkable for acute findings. No significant plaque seen. Cardiology was consulted. Dr. Ortiz felt there was no further cardiac testing / procedures warranted while in hospital. Recommended follow up in office for outpatient echocardiogram and stress testing. no new medications. continue home meds as previously prescribed. Follow up: PCP 3-5 days Cardiology within 1-2 weeks Recommend follow up with PCP for sleep study to rule out sleep apnea. Followup: [facility] [Primary Care Provider] - Time spent managing pt's care (in minutes): 45
[2022-12-10 15:27] VITALS: BP 131/58; TEMP 97.2
--- NOTE | 2022-12-10 17:36 | EKG ---
Test Date: 2022-12-09 Test Time: 13:30:06 Service Bar Cashier: BARBARA MEASUREMENT RESULTS: Intervals: Rate: 71 RI: 130 QRSD: 76 QT: 388 QTc: 421 [place]: P: 49 RI: 130 QRS: 98 T: 29 INTERPRETIVE STATEMENTS: Normal sinus rhythm Rightward axis Borderline ECG Compared to ECG 09/03/2022 01:06:07 Right-axis deviation now present Electronically Signed On 12-10-22 17:33:46 CDT by Odin Ortiz
== END 2022-12-10 14:15 | disposition home or self-care (01) ==
LOC: ER 12:56 → INTOOBSV 15:55 → ERHOLD 15:55 → 4TH 17:51
PROVIDERS: ADMIT Hospitalist; ATTEND Hospitalist
DX: R07.9 Chest pain, unspecified (principal); I16.0 Hypertensive urgency; K21.9 Gastro-esophageal reflux disease without esophagitis; R42 Dizziness and giddiness; B02.9 Zoster without complications; E66.9 Obesity, unspecified; Z68.43 Body mass index [BMI] 50.0-59.9, adult; Z71.3 Dietary counseling and surveillance
CPT/HCPCS: 96361; 93005; 85025 ×2; 81001 ×2; 80048 ×2; 36415; 83735 ×2; 84100; 85610; 85379; 80076; 84443; 83036; 84484 ×3; 84439; 83690; 83880; 70450; 71045; 93880; 70551; 96360; 99285; J1650 ×2; J7030

== ENCOUNTER 2023-04-09 16:56 | Observation (INO) | payer OTHER ==
--- OUTSIDE RECORDS SUMMARY | 2023-04-09 17:17 | XMS REPORT | Continuity of Care Document ---
:1965 Author Organization [facility] t Address [address] [facility] [place] [address] Care Team Providers Name Role Phone Jose Wilson [facility] Primary Care P hysician Janneth Yang Attending Clinician Doctor Unassigned, [place] Attending Clinician Unavailable SOUMYA HA Attending Clinician Unavailable MICHAEL MUELLER Attending Clinician Unavailable Michael Riley Attending Clinician Evaristo Gabriel MD Attending Clinician CHERYL GIORDANO Attending Clinician Unavailable Akindionte Cheryl FALL Attending Clinician [phone] EVARISTO GABRIEL Attending Clinician Unavailable CHARLOTTE MURPHY Attending Clinician Unavailable Mitra Barajas NP Attending Clinician Charlotte Murphy MD Attending Clinician REBEKA AG Attending Clinician Unavailable Anni Simon Attending Clinician Soumya Stanton Attending Clinician MICHAEL MUELLER Admitting Clinician Unavailable CHARLOTTE MURPHY Admitting Clinician Unavailable Charlotte Murphy MD Admitting Clinician Payers Payer Name Policy Type Policy Number Effective Date Expiration Date Macie morgan MEDICAID TA PENDING 2021 PENDING 00:00:00 Problems Condition Condition Condition Status Onset Resolution Last Treating Co mments Source Name Details Category Date Date Treatment Clinician Date Dyslipidem Dyslipidem Disease Active 2020-05 U nivers ia ia 2-18 ity of 00:00: [place] [facility] Left arm Left arm Disease Active 2020-05 Unive rs pain pain 2-18 ity of 00:00: [place] [facility] Atypical Atypical Disease Active 2020-05 Unive rs chest pain chest pain 2-17 it y of 00:00: [place] [address] Medical Branch BMI BMI Disease Active Univers 50.0-59.9, 50.0-59.9, 7-22 it y of adult adult 00:00: [place] [address] Medical Branch Encounter Encounter Disease Active Uni vers for for 7 ity of surveillan surve[place]an [place] of Medical contracept contracept Br anch jacqueline, jacqueline, unspecifie unspecifie d d contracept contracept alycia alycia Well woman Well woman Disease Active U nivers exam exam - ity of 00:00: [place] [address] Medical Branch Essential Essential Disease Active Uni vers hypertensi hypertensi 9-28 it y of on on 00:00: [place] [address] Medical Branch Breast Breast Disease Active Univers tenderness tenderness 2-02 it y of in female in female 00:00: [facility] [place] [place] [facility] Branch Generalize Generalize Disease Active U nivers d anxiety d anxiety 2-02 ity of disorder disorder 00:00: [place] [address] Medical Branch Encounter Encounter Disease Recurre Overview: Univers for for nce 2-27 Formattin ity of routine routine 00:00: g of this [place] gynecologi gynecologi 00 note Me dical yady yady might be Branch examinatio examinatio different n n from the original. ICD10 Diagnosis Term Practice Professional Utility Allergies, Adverse Reactions, Alerts Allergy Allergy Status Severity Reaction(s) Onset Inactive Treating Comm ents Source Name Type Date Date Clinician Amoxicil Propensi Active nikki-Pot ty to 8-11 Clavulan adverse 00:00: ate - reaction 00 Oral to drug Demetrio Propensi Active 2016-05 Inhibito ty to 06-01 rs adverse 00:00: reaction 00 to drug NO KNOWN Drug Active Univers ALLERGIE Class 1-22 ity of S 00:00: [place] [address] [place] [address] No Known Propensi Active Univer s Allergie ty to 06-01 ity of s adverse 00:00: [place] reaction [address] [place] [address] s Branch Social History Social Habit Start Date Stop Date Quantity Comments Source Gender identity Universit y of [facility] Sexual orientation Univer sity of [facility] Exposure to 2021-09-14 2021-09-24 Not sure [facility] SARS-CoV-2 (event) 00:00:00 22:26:00 [facility] Alcohol intake 2021-09-24 2021-09-24 Current University of 00:00:00 00:00:00 non-drinker of [facility] [place] [facility] alcohol Bel[place] (finding) History of Social 2018-11-29 2018-11-29 Univers ity of function 00:00:00 00:00:00 [facility] Tobacco use and 2017-02-06 2017-02-06 Smokeless Universit y of exposure 00:00:00 00:00:00 tobacco non-user [facility] Sex [birth year] Universit y of 00:00:00 00:00:00 [facility] Smoking Status Start Date Stop Date Source Never smoked tobacco [facility] Medications Ordered Filled Start Stop Current Ordering Indication Dosage Frequency Signature Comments Components Source Medication Medication Date Date Medication? Clinician (SIG) Name Name TAKE No TABLET BID 01-30 NEEDED 00:00: 00 TAKE No TABLET BID 01-30 NEEDED 00:00: 00 TAKE 0 No 600 TABLET BID 8-17 NEEDED 00:00: 00 TAKE 0 No 600 TABLET BID 8-17 NEEDED 00:00: 00 TAKE 1 2021-0 No 600 TABLET BID 8-17 NEEDED 00:00: 00 Dose 2021-0 No Unknown 8- 00:00: 00 Dose 2021-0 No Unknown 8- 00:00: 00 Dose 2021-0 No Unknown 8- 00:00: 00 Imodium A-D No mg 2 mg tablet 11-29 00:00: 00 Dose 2022-0 No Unknown 11-29 00:00: 00 Dose 2-0 No Unknown 11-29 00:00: 00 Imodium A-D 2022-0 No mg 2 mg tablet 11-29 00:00: 00 Dose 2-0 No Unknown 11-29 00:00: 00 Dose 2022-0 No Unknown 11-29 00:00: 00 Imodium A-D 2022-0 No mg 2 mg tablet 11-29 00:00: 00 Dose 2022-0 No Unknown 11-29 00:00: 00 Dose 2022-0 No Unknown 11-29 00:00: 00 Imodium A-D 2-0 No mg 2 mg tablet 11-29 00:00: 00 Dose 2-0 No Unknown 11-29 00:00: 00 Dose 2-0 No Unknown 11-29 00:00: 00 Ciprodex 2022-0 No 4% 0.3 %-0.1 % 11-25 ear [...] 00:00: %-0.05 % 00 topical cream Ciprodex 2022-0 No 4% 0.3 %-0.1 % 18 ear 00:00: drops,suspe 00 nsion clotrimazol 2022-0 No 1% e-betametha 18 sone 1 00:00: %-0.05 % 00 topical cream Ciprodex 2022-0 No 4% 0.3 %-0.1 % 18 ear 00:00: drops,suspe 00 nsion clotrimazol 0 No 1% e-betametha 18 sone 1 00:00: %-0.05 % 00 topical cream TAKE 1 2021-0 No [id number] TABLET 7-17 TWICE DAILY 00:00: WITH FOOD. 00 TAKE 1 2021-0 No [id number] TABLET 7-17 TWICE DAILY 00:00: WITH FOOD. 00 TAKE 1 2021-0 No [id number] TABLET 7-17 TWICE DAILY 00:00: WITH FOOD. 00 TAKE 1 2021-0 No [id number] TABLET 7-17 TWICE DAILY 00:00: WITH FOOD. 00 TAKE 1 2021-0 No [id number] TABLET 7-17 TWICE DAILY 00:00: WITH FOOD. 00 TAKE 1 2021-0 No 600 TABLET [...] TABLET BID 7-05 NEEDED 00:00: 00 proMETHazin 2021-0 2021- No 25mg 25 mg, Uni vers e 09-25 Intramuscu ity of (PHENERGAN) 09:00: 08:07 lar, ONCE, [place] injection 00 :00 1 dose, On Medi yady 25 mg Wed Branch 09/25/21 at 0400, ROZ hyoscyamine 2021-0 2021- No .125mg 0.125 mg, Univers sulfate 09-25 Sublingual ity o f (LEVSIN/SL) 09:00: 08:07 , ONCE [place] as sublingual 00 :00 NOW, 1 Medical tablet dose, On Branch 0.125 mg 09/25/21 at 0400, Routine maalox:diph 2021- No 15mL 15 mL, Uni vers enhydrAMINE 09-25 Oral, ity of :lidocaine 08:15: 07:45 ONCE, 1 [place] 2 % viscous 00 :00 dose, On Medi yady 1:1:1 Wed Branch ([facility] 09/25/21 at [facility]) 0315, oral Routine suspension 15 mL metoclopram 2021- No 10mg 10 mg, Uni vers sacha HCl 09-25 Slow IV ity of (REGLAN) 07:30: 06:35 Push, [place] injection 00 :00 ONCE, 1 Medical 10 mg dose, On Branch 09/25/21 at 0230, ROZ iopamidol 2021- No [id number] 120mL 120 mL, Univers (ISOVUE 09-25 Intravenou ity o f 370-500 mL) 07:15: 05:59 s, ONCE, 1 [place] injection 00 :00 dose, On Medica l 120 mL Wed Branch 09/25/21 at 0215, Routine FENTanyl PF No 50ug 50 mcg, Un [place] (SUBLIMAZE 09-25 Slow IV ity o f (PF)) 05:15: 04:51 Push, [place] injection 00 :00 ONCE, 1 Medical 50 mcg dose, On Branch 09/25/21 at 0015, STAT ondansetron 2021- No 4mg 4 mg, Slow Univers (ZOFRAN 09-25 IV Push, ity of (PF)) 05:15: 04:51 ONCE, 1 [place] injection 4 00 :00 dose, On Medi yady mg Wed Branch 09/25/21 at 0015, ROZ NaCl 0.9% 2021- No 1000mL at 999 Uni vers (NS) bolus 09-25 mL/hr, ity of infusion 05:15: 08:50 1,000 mL, [place] as 1,000 mL 00 :00 IV Medical Infusion, Branch ONCE, 1 dose, On Thu09/25/21 at 0015, ROZ dicyclomine 2022-0 Yes [id number] 10mg Take 1 Univers 10 mg 5-18 capsule by ity of capsule 00:00: mouth 4 [place] 00 (four) Medical times Branch daily. proMETHazin 2022-0 Yes [id number] 25mg Take 1 Univers e 25 mg 5-18 tablet by ity of tablet 00:00: mouth [place] 00 every 6 Medical (six) Branch hours as needed for Nausea and Vomiting (N/V). dicyclomine 2022-0 Yes [id number] 10mg Take 1 Univers 10 mg 5-18 capsule by ity of capsule 00:00: mouth 4 00 (four) Medical times Branch daily. proMETHazin 2022-0 Yes [id number] 25mg Take 1 Univers e 25 mg 5-18 tablet by ity of tablet 00:00: mouth [place] 00 every 6 Medical (six) Branch hours as needed for Nausea and Vomiting (N/V). dicyclomine 2022-0 Yes [id number] 10mg Take 1 Univers 10 mg 5-18 capsule by ity of capsule 00:00: mouth 4 00 (four) Medical times Branch daily. proMETHazin 2022-0 Yes [id number] 25mg Take 1 Univers e 25 mg 5-18 tablet by ity of tablet 00:00: mouth [place] 00 every 6 Medical (six) Branch hours as needed for Nausea and Vomiting (N/V). traMADoL 50 2022-0 2022- No [id number] 50mg Take 1 Uni vers mg tablet 5-18 05-26 tablet by ity of 00:00: 04:59 mouth [place] 00 :00 every 6 Medical (six) Branch hours as needed for Pain (scale 7-10) for up to 7 days. Indication s: acute pain duloxetine 2022-0 No 1mg 30 mg 5-14 [...] 00:00: ayed 00 release metoprolol 2022-0 Yes [id number] 50mg Take 1 U nivers tartrate 50 4-01 tablet by ity of mg tablet 00:00: mouth [place] (two) Medical times Branch daily. metoprolol 2022-0 Yes [id number] 50mg Take 1 U nivers tartrate 50 4-01 tablet by ity of mg tablet 00:00: mouth [place] ([facility]) Medical times Branch daily. metoprolol 2022-0 Yes [id number] 50mg Take 1 U nivers tartrate 50 4-01 tablet by ity of mg tablet 00:00: mouth 2 [place] (two) Medical times Branch daily. metoprolol 2022-0 Yes [id number] 50mg Take 1 U nivers tartrate 50 4-01 tablet by ity of mg tablet 00:00: mouth 2 [place] ([facility]) Medical times Branch daily. Dose 2022-0 No Unknown 3-29 00:00: 00 Dose 2022-0 No Unknown 3-29 00:00: 00 Dose 2022-0 No Unknown 3-29 00:00: 00 metoprolol 2022-0 No mg tartrate 50 3-29 mg tablet 00:00: 00 Dose 2022-0 No Unknown 3-29 00:00: 00 Dose 2022-0 No Unknown 3-29 00:00: 00 Dose 2022-0 No Unknown 3-29 00:00: 00 Dose 2022-0 No Unknown 3-29 00:00: 00 Dose 2022-0 No Unknown 3- 00:00: 00 Dose 2-0 No Unknown 3- 00:00: 00 Dose 2-0 No Unknown 3- 00:00: 00 Dose 2-0 No Unknown 3- 00:00: 00 Dose 2-0 No Unknown 3- 00:00: 00 metoprolol 2022-0 No mg tartrate 50 3-29 mg tablet [...] 3-29 00:00: 00 Dose 2-0 No Unknown 3 00:00: 00 Dose 2-0 No Unknown 3 00:00: 00 Dose 2021-0 No Unknown 08-06 00:00: 00 metoprolol 2021-0 No mg tartrate 50 3-29 mg tablet 00:00: 00 Dose 2021-0 No Unknown 3 00:00: 00 Dose 2021-0 No Unknown 3 00:00: 00 Dose 2021-0 No Unknown 08-06 00:00: 00 Dose 2021-0 No Unknown 08-06 00:00: 00 Dose 2021-0 No Unknown 08-06 00:00: 00 Dose 2021-0 No Unknown 08-06 00:00: 00 Dose 2021-0 No Unknown 08-06 00:00: 00 Dose 2021-0 No Unknown 08-06 00:00: 00 Dose 2021-0 No Unknown 08-06 00:00: 00 metoprolol 2021-0 No mg tartrate 50 3-29 mg tablet 00:00: 00 Dose 2021-0 No Unknown 08-06 00:00: 00 Dose 2021-0 No Unknown 08-06 00:00: 00 Dose 2021-0 No Unknown 08-06 00:00: 00 Dose 2021-0 No Unknown 08-06 00:00: 00 Dose 2021-0 No Unknown 08-06 00:00: 00 Dose 2021-0 No Unknown 08-06 00:00: 00 metoprolol 2022-0 2- No 50mg Take 50 mg Univers tartrate 50 06-10 by mouth 2 i ty of mg tablet 15:26: 00:00 (two) [place] 10 :00 times Medical daily. Branch Take 1 tablet in the morning and one half in the evening ALBUTEROL 0 Yes Inhale. Unive rs SULFATE - ity of INHALE 15:09: [address] Branch acetaminoph Yes Take by Uni vers en (TYLENOL 06-10 mouth. ity of ORAL) 15:09: [address] ALBUTEROL Yes Inhale. Unive rs SULFATE 06-10 ity of INHALE 15:09: [address] Branch acetaminoph Yes Take by Uni vers en (TYLENOL 1-31 mouth. ity of ORAL) 15:09: [address] ALBUTEROL Yes Inhale. Unive rs SULFATE 1-31 ity of INHALE 15:09: [address] acetaminoph Yes Take by Uni vers en (TYLENOL 1-31 mouth. ity of ORAL) 15:09: [address] ALBUTEROL Yes Inhale. Unive rs SULFATE 1-31 ity of INHALE 15:09: [address] acetaminoph Yes Take by Uni vers en (TYLENOL 1-31 mouth. ity of ORAL) 15:09: [address] ALBUTEROL Yes Inhale. Unive rs SULFATE 1-31 ity of INHALE 15:09: [address] acetaminoph Yes Take by Uni vers en (TYLENOL 1-31 mouth. ity of ORAL) 15:09: [address] ALBUTEROL Yes Inhale. Unive rs SULFATE 1-31 ity of INHALE 15:09: [address] acetaminoph Yes Take by Uni vers en (TYLENOL 1-31 mouth. ity of ORAL) 15:09: [address] omeprazole 0 Yes 40mg Take 40 mg U nivers 10 mg 1-31 by mouth ity of capsule 15:06: daily. [address] omeprazole 2021-0 Yes 40mg Take 40 mg U nivers 10 mg 1-31 by mouth ity of capsule 15:06: daily. [address] omeprazole 2021-0 Yes 40mg Take 40 mg U nivers 10 mg 1-31 by mouth ity of capsule 15:06: daily. [address] omeprazole 2021-0 Yes 40mg Take 40 mg U nivers 10 mg 1-31 by mouth ity of capsule 15:06: daily. [address] omeprazole 2021-0 Yes 40mg Take 40 mg U nivers 10 mg 1-31 by mouth ity of capsule 15:06: daily. [address] omeprazole 2021-0 Yes 40mg Take 40 mg U nivers 10 mg 1-31 by mouth ity of capsule 15:06: daily. [address] metoprolol 2021-0 Yes [id number] 50mg Take 1 U nivers tartrate 50 1-31 tablet by ity of mg tablet 00:00: mouth 2 [place] (two) Medical times Branch daily. metoprolol 2-0 Yes [id number] 50mg Take 1 U nivers tartrate 50 1-31 tablet by ity of mg tablet 00:00: mouth 2 [place] 00 (two) Medical times Branch daily. metoprolol 2021-0 2- No [id number] 50mg Take 1 Univers tartrate 50 1-31 04- tablet by it y of mg tablet 00:00: 00:00 mouth 2 [place] (two) Medical times Branch daily. oxybutynin 2021-0 No 1mg chloride 5 1-24 mg tablet [...] 7-14 disintegrat 00:00: ing tablet 00 metoprolol 1-0 No mg tartrate 50 6-22 mg tablet [...] 3-24 mg tablet 00:00: 00 Dexilant 60 1-0 No 1mg mg capsule, 3-24 delayed 00:00: [...] 50 0-30 mg tablet 00:00: 00 metoprolol 2018- No mg tartrate 50 0-30 mg tablet 00:00: 00 metoprolol 2018- No mg tartrate 50 0-30 mg tablet 00:00: 00 metoprolol 2018- No mg tartrate 50 0-30 mg tablet 00:00: 00 [facility] 2018- No 1% ne 0-29 acetonide 00:00: 0.1 % 00 topical cream metoprolol 2018- No 1mg tartrate 50 0-29 mg tablet 00:00: 00 prednisone 2018-1 No mg 20 mg 0-29 tablet 00:00: 00 [facility] 2018- No 1% ne 0-29 acetonide 00:00: 0.1 % 00 topical cream metoprolol 2018- No 1mg tartrate 50 0-29 mg tablet 00:00: 00 prednisone 2018-1 No mg 20 mg 0-29 tablet 00:00: 00 [facility] 2018- No 1% ne 0-29 acetonide 00:00: 0.1 % 00 topical cream metoprolol 2018- No 1mg tartrate 50 0-29 mg tablet 00:00: 00 prednisone 2018-1 No mg 20 mg 0-29 tablet 00:00: 00 [facility] 2018- No 1% ne 0-29 acetonide 00:00: 0.1 % 00 topical cream metoprolol 2018- No 1mg tartrate 50 0-29 mg tablet 00:00: 00 prednisone 2018-1 No mg 20 mg 0-29 tablet 00:00: 00 [facility] 2018- No 1% ne 0-29 acetonide 00:00: 0.1 % 00 topical cream metoprolol 2018- No 1mg tartrate 50 0-29 mg tablet 00:00: 00 prednisone 2018-1 No mg 20 mg 0-29 tablet 00:00: 00 [facility] 2018- No 1% ne 0-29 acetonide 00:00: 0.1 % 00 topical cream metoprolol 2018- No 1mg tartrate 50 0-29 mg tablet [...] 25 1-30 mg tablet 00:00: 00 metoprolol 2016-05 No 1mg tartrate 25 1-30 mg tablet 00:00: 00 metoprolol 2016-05 No 1mg tartrate 25 1-30 mg tablet 00:00: 00 metoprolol 2016-05 No 1mg tartrate 25 1-30 mg tablet [...] prednisone 2017-0 No 1mg 5 mg tablet 606 00:00: 00 verapamil 2017-0 No 1mg 40 [...] prednisone 2017-0 No 1mg 5 mg tablet 606 00:00: 00 verapamil 2017-0 No 1mg 40 [...] prednisone 2017-0 No 1mg 5 mg tablet 606 00:00: 00 verapamil 2017-0 No 1mg 40 [...] 2-09 capsule,del 00:00: ayed 00 release amoxicillin 2015-1 No 1mg 875 mg 0-01 [...] 875 mg 0-01 tablet 00:00: 00 ibuprofen 2015-1 No 1mg 800 mg 0-01 tablet 00:00: 00 amoxicillin 2015-1 No 1mg 875 mg 0-01 tablet 00:00: 00 ibuprofen 2015-1 No 1mg 800 mg 0-01 tablet 00:00: 00 amoxicillin 2015-1 No 1mg 875 mg 0-01 tablet 00:00: 00 ibuprofen 2015-1 No 1mg 800 mg 0-01 tablet 00:00: 00 lisinopril 2015-0 No 1mg 20 9-01 mg-hydrochl 00:00: orothiazide 00 12.5 mg tablet metoprolol 2015-0 No 1mg tartrate 25 9-01 mg tablet 00:00: 00 omeprazole 2015-0 No 1mg 20 mg 9-01 capsule,del 00:00: [...] 00:00: orothiazide 00 12.5 mg tablet metoprolol 2015-0 No 1mg tartrate 25 9-01 mg tablet [...] 20 mg 0-15 tablet 00:00: 00 Wellbutrin 2014-1 No 1mg 100 mg 0-15 tablet 00:00: 00 simvastatin 2014-1 No 1mg 20 mg 0-15 tablet 00:00: 00 Wellbutrin 2014- No 1mg 100 mg 0-15 tablet 00:00: 00 simvastatin 2014- No 1mg 20 mg 0-15 tablet 00:00: 00 Wellbutrin 2014- No 1mg 100 mg 0-15 tablet 00:00: 00 simvastatin 2014- No 1mg 20 mg 0-15 tablet 00:00: 00 Zyrtec 2014-05 No 1mg mg tablet 0-09 00:00: 00 Zyrtec 2014-05 No 1mg mg tablet 0-09 00:00: 00 metoprolol 2014-05 No 1mg tartrate 25 0-09 mg tablet 00:00: 00 Zithromax 2014-05 No 1mg Z-Francisco J 250 0-09 mg tablet 00:00: 00 metoprolol 2014-05 No 1mg tartrate 25 0-09 mg tablet 00:00: 00 Zithromax 2014- No 1mg Z-Francisco J 250 0-09 mg tablet 00:00: 00 Zyrtec 2014-05 No 1mg mg tablet 0-09 00:00: 00 metoprolol 2014- No 1mg tartrate 25 0-09 mg tablet 00:00: 00 Zithromax 2014- No 1mg Z-Francisco J 250 0-09 mg tablet 00:00: 00 Zyrte 2014-05 No 1mg mg tablet 0-09 00:00: 00 metoprolol 2014- No 1mg tartrate 25 0-09 mg tablet 00:00: 00 Zithromax 2014- No 1mg Z-Francisco J 250 0-09 mg tablet 00:00: 00 Zyrte 2014-05 No 1mg mg tablet 0-09 00:00: 00 metoprolol 2014- No 1mg tartrate 25 0-09 mg tablet 00:00: 00 Zithromax 2014- No 1mg Z-Francisco J 250 0-09 mg tablet 00:00: 00 Zyrte 2014-05 No 1mg mg tablet 0-09 00:00: 00 metoprolol 2014- No 1mg tartrate 25 0-09 mg tablet 00:00: 00 Zithromax 2014- No 1mg Z-Francisco J 250 0-09 mg tablet 00:00: 00 Motrin 800 2015-0 [...] Motrin 800 2015-0 No 1mg mg tablet 6 00:00: 00 metoprolol 2015-0 No 1mg tartrate 25 6-19 mg tablet 00:00: 00 Motrin 800 2015-0 No 1mg mg tablet 6 00:00: 00 metoprolol 2015-0 No 1mg tartrate 25 6-19 mg tablet 00:00: 00 Motrin 800 2014-0 No 1mg mg tablet 6- 00:00: 00 metoprolol 2015-0 No 1mg tartrate 25 6-19 mg tablet 00:00: 00 Motrin 800 2015-0 No 1mg mg tablet 4- 00:00: 00 Motrin 800 2015-0 No 1mg mg tablet 4- 00:00: 00 Motrin 800 2015-0 No 1mg mg tablet 4 00:00: 00 Motrin 800 2015-0 No 1mg mg tablet 4 00:00: 00 Motrin 800 2014-0 No 1mg mg tablet 4 00:00: 00 Motrin 800 2015-0 No 1mg mg tablet 4 00:00: 00 metoprolol 2015-0 No 1mg tartrate [...] No 1mg mg tablet 4-10 00:00: 00 Vital Signs Vital Name Observation Time Observation Value Comments Source Body temperature 2021-09-25 07:54:00 37 [facility] Systolic blood 2021-09-25 07:46:00 119 mm[Hg] Univer sity of pressure [facility] Diastolic blood 2021-09-25 07:46:00 81 mm[Hg] [facility] Heart rate 2021-09-25 07:46:00 79 /[facility] Respiratory rate 2021-09-25 07:46:00 19 /min [facility] Oxygen saturation in 2021-09-25 06:15:00 98 /min [facility] blood by [facility] [place] [facility] Pulse oximetry Branch Body height 2021-09-25 03:29:00 154.9 cm Universi ty of [place] [facility] Body weight 2021-09-25 03:29:00 127.007 kg Universi ty of [place] [facility] [place] BMI 2021-09-25 03:29:00 52.91 kg/m2 Universi ty of [facility] Branch Systolic blood 2021-06-10 21:13:00 146 mm[Hg] Univer sity of pressure [facility] Branch Diastolic blood 2021-06-10 21:13:00 83 mm[Hg] Unive rsity of pressure [facility] Heart rate 2021-06-10 21:05:00 71 /min Universi ty of [facility] Body height 2021-06-10 21:05:00 154.9 cm Universi ty of [facility] Body weight 2021-06-10 21:05:00 128.595 kg Universi ty of [facility] BMI 2021-06-10 21:05:00 53.57 kg/m2 Universi ty [facility] [place] [facility] Oxygen saturation in 2021-06-10 21:05:00 94 /min University of Arterial blood by [facility] [place] [facility] Pulse oximetry Branch BP Systolic 2021-12-25 10:28:00 [...] Procedure Date / Time Performed Performing Clinician [facility] e REFERRAL- 2022-12-13 05:01:00 Doctor Unassigned, No [facility] REQUEST/RESPONSE Name Medical Branch POCT GLUCOSE 2021-09-25 08:06:[address] [facility] (AUTOMATED) [facility] CT ABDOMEN PELVIS W 2021-09-25 06:00:00 Michael Mueller [facility] CONTRAST Medical Branch URINALYSIS 2021-09-25 05:32:00 Michael Mueller [facility] LIPASE 2021-09-25 04:22:00 Michael Mueller [facility] TROPONIN I 2021-09-25 04:22:00 Michael Mueller [facility] COMP. METABOLIC PANEL 2021-09-25 04:22:00 Michael Mueller [facility] ([id number]) Medical [place] CBC WITH DIFF 2021-09-25 04:22:00 Michael Mueller [facility] NOTICE OF PRIVACY 2021-09-25 02:57:58 Doctor Unassigned, No [facility] PRACTICES Name Medical Branch CONSENT/REFUSAL FOR 2021-09-25 02:57:17 Doctor Unassigned, No [facility] DIAGNOSIS AND Name Medical Branch TREATMENT Plan of Care Planned Activity Planned Date Details Comments Source Goal Plan of Care Note [code = 19639-2] Goal Plan of Care Note [code = 84880-8] Goal Plan of Care Note [code = 33782-6] Goal Plan of Care Note [code = 52766-4] Goal Plan of Care Note [code = 73555-4] Goal Plan of Care Note [code = 90045-2] Goal Plan of Care Note [code = 58322-6] Goal Plan of Care Note [code = 41938-4] Goal Plan of Care Note [code = 57973-8] Goal Plan of Care Note [code = 14649-9] Goal Plan of Care Note [code = 97049-1] Goal Plan of Care Note [code = 01107-8] Goal Plan of Care Note [code = 43978-9] Goal Plan of Care Note [code = 25701-9] Goal Plan of Care Note [code = 43587-5] Goal Plan of Care Note [code = 04459-1] Goal Plan of Care Note [code = 31547-6] Goal Plan of Care Note [code = 66544-4] Goal Plan of Care Note [code = 01116-4] Goal Plan of Care Note [code = 36372-8] Goal Plan of Care Note [code = 79090-3] Goal Plan of Care Note [code = 70105-1] Goal Plan of Care Note [code = 65252-4] Goal Plan of Care Note [code = 59762-4] Goal Plan of Care Note [code = 58541-3] Goal Plan of Care Note [code = 59430-1] Goal Plan of Care Note [code = 29032-8] Goal Plan of Care Note [code = 66039-8] Goal Plan of Care Note [code = 20972-5] Goal Plan of Care Note [code = 99828-8] Goal Plan of Care Note [code = 02283-0] Goal Plan of Care Note [code = 92744-9] Goal Plan of Care Note [code = 13266-4] Goal Plan of Care Note [code = 35475-7] Goal Plan of Care Note [code = 17269-7] Goal Plan of Care Note [code = 86398-7] Goal Plan of Care Note [code = 82902-7] Goal Plan of Care Note [code = 75012-3] Goal Plan of Care Note [code = 42997-8] Goal Plan of Care Note [code = 34427-1] Goal Plan of Care Note [code = 83052-2] Goal Plan of Care Note [code = 97823-2] Goal Plan of Care Note [code = 18620-3] Goal Plan of Care Note [code = 57854-5] Goal Plan of Care Note [code = 54372-1] Goal Plan of Care Note [code = 89497-2] Goal Plan of Care Note [code = 69910-3] Goal Plan of Care Note [code = 02052-7] Goal Plan of Care Note [code = 61051-6] Goal Plan of Care Note [code = 87861-7] Goal Plan of Care Note [code = 05466-2] Goal Plan of Care Note [code = 10558-5] Goal Plan of Care Note [code = 70915-7] Goal Plan of Care Note [code = 72200-1] Goal Plan of Care Note [code = 12646-2] Goal Plan of Care Note [code = 52230-7] Goal Plan of Care Note [code = 29711-8] Goal Plan of Care Note [code = 70549-8] Goal Plan of Care Note [code = 35223-6] Goal Plan of Care Note [code = 45147-1] Goal Plan of Care Note [code = 48850-7] Goal Plan of Care Note [code = 64569-9] Goal Plan of Care Note [code = 21775-0] Goal Plan of Care Note [code = 14233-6] Goal Plan of Care Note [code = 23842-9] Goal Plan of Care Note [code = 10863-3] Goal Plan of Care Note [code = 97228-9] Goal Plan of Care Note [code = 73720-9] Goal Plan of Care Note [code = 44007-4] Goal Plan of Care Note [code = 01963-6] Goal Plan of Care Note [code = 38443-1] Goal Plan of Care Note [code = 12989-4] Goal Plan of Care Note [code = 89427-6] Goal Plan of Care Note [code = 47392-1] Goal Plan of Care Note [code = 27566-8] Goal Plan of Care Note [code = 03302-5] Goal Plan of Care Note [code = 29157-3] Goal Plan of Care Note [code = 00874-3] Goal Plan of Care Note [code = 98467-4] Goal Plan of Care Note [code = 66933-1] Goal Plan of Care Note [code = 83158-6] Goal Plan of Care Note [code = 33632-9] Goal Plan of Care Note [code = 80401-2] Goal Plan of Care Note [code = 82947-4] Goal Plan of Care Note [code = 48837-2] Goal Plan of Care Note [code = 19118-5] Goal Plan of Care Note [code = 93888-2] Goal Plan of Care Note [code = 97317-2] Goal Plan of Care Note [code = 83178-2] Goal Plan of Care Note [code = 64596-8] Goal Plan of Care Note [code = 43642-6] Goal Plan of Care Note [code = 81459-0] Goal Plan of Care Note [code = 64260-8] Goal Plan of Care Note [code = 02847-8] Goal Plan of Care Note [code = 64214-4] Goal Plan of Care Note [code = 02566-8] Goal Plan of Care Note [code = 68772-4] Goal Plan of Care Note [code = 83938-2] Goal Plan of Care Note [code = 48646-8] Goal Plan of Care Note [code = 92325-2] Goal Plan of Care Note [code = 05191-3] Goal Plan of Care Note [code = 31456-5] Goal Plan of Care Note [code = 78022-2] Goal Plan of Care Note [code = 50759-8] Goal Plan of Care Note [code = 04459-9] Goal Plan of Care Note [code = 03781-8] Goal Plan of Care Note [code = 87029-9] Goal Plan of Care Note [code = 88016-9] Goal Plan of Care Note [code = 26644-8] Goal Plan of Care Note [code = 36919-9] Goal Plan of Care Note [code = 84069-7] Goal Plan of Care Note [code = 48853-3] Goal Plan of Care Note [code = 92143-9] Goal Plan of Care Note [code = 04981-5] Goal Plan of Care Note [code = 12904-4] Goal Plan of Care Note [code = 42929-5] Goal Plan of Care Note [code = 53777-6] Goal Plan of Care Note [code = 07807-5] Goal Plan of Care Note [code = 58831-1] Goal Plan of Care Note [code = 46860-2] Goal Plan of Care Note [code = 61724-2] Goal Plan of Care Note [code = 77549-6] Goal Plan of Care Note [code = 82672-4] Goal Plan of Care Note [code = 24697-7] Goal Plan of Care Note [code = 27735-0] Goal Plan of Care Note [code = 90168-2] Goal Plan of Care Note [code = 98957-4] Goal Plan of Care Note [code = 47059-4] Goal Plan of Care Note [code = 18571-5] Goal Plan of Care Note [code = 11857-1] Goal Plan of Care Note [code = 30010-3] Goal Plan of Care Note [code = 02483-4] Goal Plan of Care Note [code = 57613-5] Goal Plan of Care Note [code = 09071-1] Goal Plan of Care Note [code = 51118-3] Goal Plan of Care Note [code = 90209-7] Goal Plan of Care Note [code = 46214-7] Goal Plan of Care Note [code = 19303-9] Goal Plan of Care Note [code = 89370-7] Goal Plan of Care Note [code = 35939-0] Goal Plan of Care Note [code = 18532-7] Goal Plan of Care Note [code = 33799-4] Goal Plan of Care Note [code = 63875-8] Goal Plan of Care Note [code = 79590-7] Goal Plan of Care Note [code = 15485-1] Goal Plan of Care Note [code = 84135-9] Goal Plan of Care Note [code = 57980-6] Goal Plan of Care Note [code = 61301-0] Goal Plan of Care Note [code = 76906-8] Goal Plan of Care Note [code = 50934-1] Goal Plan of Care Note [code = 10527-0] Goal Plan of Care Note [code = 07852-6] Goal Plan of Care Note [code = 81727-5] Goal Plan of Care Note [code = 43308-4] Goal Plan of Care Note [code = 35913-4] Goal Plan of Care Note [code = 58020-4] Goal Plan of Care Note [code = 86434-5] Goal Plan of Care Note [code = 56764-8] Goal Plan of Care Note [code = 27270-2] Goal Plan of Care Note [code = 83412-6] Goal Plan of Care Note [code = 23776-1] Goal Plan of Care Note [code = 12989-5] Goal Plan of Care Note [code = 49390-4] Goal Plan of Care Note [code = 42976-4] Goal Plan of Care Note [code = 71127-7] Goal Plan of Care Note [code = 55232-0] Goal Plan of Care Note [code = 90143-5] Goal Plan of Care Note [code = 27856-8] Goal Plan of Care Note [code = 68220-1] Goal Plan of Care Note [code = 15745-7] Goal Plan of Care Note [code = 31001-5] Goal Plan of Care Note [code = 90781-4] Goal Plan of Care Note [code = 43097-2] Goal Plan of Care Note [code = 74757-6] Goal Plan of Care Note [code = 94634-5] Goal Plan of Care Note [code = 90535-3] Goal Plan of Care Note [code = 59171-2] Goal Plan of Care Note [code = 19543-1] Goal Plan of Care Note [code = 20657-9] Goal Plan of Care Note [code = 57225-1] Goal Plan of Care Note [code = 68745-5] Goal Plan of Care Note [code = 78783-7] Goal Plan of Care Note [code = 66584-8] Goal Plan of Care Note [code = 42140-9] Goal Plan of Care Note [code = 74944-3] Goal Plan of Care Note [code = 56179-8] Goal Plan of Care Note [code = 87108-2] Goal Plan of Care Note [code = 67886-5] Goal Plan of Care Note [code = 65804-3] Goal Plan of Care Note [code = 12451-7] Goal Plan of Care Note [code = 84337-3] Goal Plan of Care Note [code = 11302-2] Goal Plan of Care Note [code = 90504-8] Goal Plan of Care Note [code = 98890-2] Goal Plan of Care Note [code = 72008-8] Goal Plan of Care Note [code = 12190-7] Goal Plan of Care Note [code = 46439-8] Goal Plan of Care Note [code = 89506-3] Goal Plan of Care Note [code = 19903-8] Goal Plan of Care Note [code = 34651-8] Goal Plan of Care Note [code = 41819-6] Goal Plan of Care Note [code = 12571-3] Goal Plan of Care Note [code = 27236-4] Goal Plan of Care Note [code = 32323-0] Goal Plan of Care Note [code = 25339-1] Goal Plan of Care Note [code = 21340-0] Goal Plan of Care Note [code = 09304-8] Goal Plan of Care Note [code = 67984-3] Goal Plan of Care Note [code = 17100-7] Goal Plan of Care Note [code = 89571-6] Goal Plan of Care Note [code = 67712-7] Goal Plan of Care Note [code = 68658-5] Goal Plan of Care Note [code = 30857-8] Goal Plan of Care Note [code = 91443-0] Goal Plan of Care Note [code = 54677-1] Goal Plan of Care Note [code = 07393-3] Goal Plan of Care Note [code = 75314-1] Goal Plan of Care Note [code = 87945-5] Goal Plan of Care Note [code = 62823-3] Goal Plan of Care Note [code = 51552-5] Goal Plan of Care Note [code = 72010-7] Goal Plan of Care Note [code = 14013-2] Goal Plan of Care Note [code = 65230-0] Goal Plan of Care Note [code = 23176-8] Goal Plan of Care Note [code = 44263-9] Goal Plan of Care Note [code = 12174-8] Goal Plan of Care Note [code = 11410-1] Goal Plan of Care Note [code = 71095-6] Goal Plan of Care Note [code = 24526-9] Goal Plan of Care Note [code = 32237-8] Goal Plan of Care Note [code = 97643-1] Goal Plan of Care Note [code = 59896-8] Goal Plan of Care Note [code = 78334-1] Goal Plan of Care Note [code = 92545-4] Goal Plan of Care Note [code = 75247-8] Goal Plan of Care Note [code = 14493-9] Goal Plan of Care Note [code = 67634-4] Goal Plan of Care Note [code = 22262-6] Goal Plan of Care Note [code = 33203-3] Goal Plan of Care Note [code = 68830-6] Goal Plan of Care Note [code = 14389-2] Goal Plan of Care Note [code = 34024-4] Goal Plan of Care Note [code = 63293-9] Goal Plan of Care Note [code = 92172-2] Goal Plan of Care Note [code = 15548-9] Goal Plan of Care Note [code = 92044-1] Goal Plan of Care Note [code = 59808-1] Goal Plan of Care Note [code = 06161-4] Encounters Start End Encounter Admission Attending Care Care Encounter Source Date/Time Date/Time Type Type Clinicians Facility Department ID 2023-03-19 2023-03-19 Outpatient [facility] [id number] 023 Jose 16:21:05 16:21:05 1109 F [place] 2022-12-29 2022-12-29 Letter Janneth Yang [id number] [id number] Univers 00:00:00 00:00:00 (Out) THIERNO 350.1.13.10 it y of HOSPITAL 4.2.7.2.686 [place] [id number] [facility] [address] 2022-12-26 2022-12-26 Outpatient [facility] 35345-6 023 Jose 16:18:29 16:18:29 0818 F [place] 2022-12-13 2022-12-13 Orders Doctor DOZIER 1.2.840.114 [id number] Univers 00:00:00 00:00:00 Only Unassigned, THIERNO 350.1.13.10 ity of [place] [facility] 4.2.7.2.686 [place] as [id number] [facility] [address] 2022-12-12 2022-12-12 Outpatient [facility] 20585-7 023 Jose 16:24:25 16:24:25 0804 F [place] 2022-12-11 2022-12-11 Outpatient [facility] 73050-5 023 Jose 14:15:09 14:15:09 0803 F [place] 2022-11-08 2022-11-08 Outpatient SFA SFA 78792-5 023 Jose 14:10:03 14:10:03 0701 F [place] 2022-09-20 2022-09-20 Outpatient [facility] S[facility] 55478-3 023 Jose 13:41:38 13:41:38 0513 F [place] 2022-08-07 2022-08-07 Outpatient [facility] SFA 35002-9 023 Jose 16:55:08 16:55:08 0330 F [place] 2022-03-03 2022-03-03 Outpatient SFA SFA 93353-0 022 Jose 15:47:22 15:47:22 1024 F [place] 2022-01-07 2022-01-07 Outpatient g276d79j- [id number] c1 22s45k-2 00:00:00 00:00:00 Visit 1dz7-89h4 cf3-49f4-8 -8008-524 008-524cd8 fn505z338 12w975 2021-12-25 2021-12-25 Outpatient 9t43tlfh- [id number] 5d 79cbdc-b 00:00:00 00:00:00 Visit u905-9y86 376-4b03-8 -888a-a7f 88a-a7fd72 w20m259k9 f381a6 2021-12-19 2021-12-19 Outpatient 76m09er3- [id number] p29um3-9 00:00:00 00:00:00 Visit 0j9w-0v15 z9r-8j58-q -a8gy-y06 7eb-p8843l 32rb16ai6 b09eb1 2021-11-29 2021-11-29 Outpatient f1yd8sno- [id number] f7 dx0tmr-d 00:00:00 00:00:00 Visit uw42-1y79 g70-0a28-s -d190-065 668-606d7d e7h88r868 83w970 2021-11-25 2021-11-25 Outpatient z8207m08- [id number] e1 499t44-m 00:00:00 00:00:00 Visit eef8-4b44 ef8-4b44-9 -9461-546 461-5467e6 4k108581m 33064q 2021-11-12 2021-11-12 Outpatient 28b6f88k- [id number] e3w76n-7 00:00:00 00:00:00 Visit 66e8-719y 5f6-493z-1 -828d-8bb 28d-8bbec0 cm213ny0m 99ae7d 2021-11-07 2021-11-07 [facility] [id number] Univers 08:30:00 08:30:00 SOUMYA gamboa [facility] 2021-09-24 2021-09-25 Emergency X [facility] ERT [id number] Univers 22:32:00 03:49:00 MICHAEL [facility] 2021-09-24 2021-09-25 Emergency [facility] 1.2.029.836 [id number] Univers 22:32:00 03:49:00 Michael FREEMAN 350.1.13.10 i ty [facility] [place] [id number] [place] [address] [place] 2021-08-06 2021-08-06 Telephone [facility] 1.2.386.604 [id number] Univers 00:00:00 00:00:00 Evaristo FREEMAN 350.1.13.10 ity [facility] [place] [facility] [phone] Nj dical [facility] 2021-07-09 2021-07-09 Outpatient R [facility] [id number] Univers 13:00:00 13:00:00 [facility] 2021-07-01 2021-07-01 [facility] [id number] Univers 10:30:00 10:30:00 CHERYL wilson [facility] 2021-06-30 2021-06-30 [facility] 1.2.840.114 [id number] Univers 00:00:00 00:00:00 Cheryl Alvarez [employer] 350.1.13.10 ity of [facility] 4.2.7.2.686 [place] MATERNAL [phone] Med ical & CHILD 107 [facility] 2021-06-10 2021-06-10 Outpatient R NERY [facility] [id number] Univers 15:20:00 15:31:06 [facility] lurdes o f [facility] 2021-06-10 2021-06-10 [facility] 1.2.840.114 [id number] Univers 15:20:00 15:31:06 Visit [facility] 350.1.13.10 ity [facility] [place].2.7.2.[place] [facility] [id number] [address] 2021-06-10 2021-06-10 Orders Doctor JACOBY 1.2.840.114 [id number] Univers 00:00:00 00:00:00 Only Unassigned, THIERNO 350.1.13.10 ity of [place] [facility] 4.2.7.2.686 [place] [id number] [facility] [address] [place] 2021-04-26 2021-04-27 Outpatient X KARTHIK [facility] JESUS [id number] Univers 10:18:00 16:12:00 CHARLOTTE [facility] 2021-04-26 2021-04-27 Outpatient X KARTHIK [facility] [id number] Univers 10:18:00 16:12:00 CHARLOTTE [facility] 2021-04-26 2021-04-27 Emergency Mitra Barajas [facility] 1.2.840 .114 [id number] Univers 10:18:00 16:12:00 Charlotte [facility] 350.1.13.10 ity of [employer] [facility] [place] [id number] [facility] [address] [place] 2020-12-13 2020-12-13 Outpatient R KIMBERLI [facility] [id number] Univers 15:00:00 15:09:50 REBEKA chatman [facility] 2020-11-22 2020-11-22 Outpatient R KIMBERLI [facility] [id number] Univers 15:20:00 15:09:34 REBEKA itcasey of [facility] 2019-01-05 2019-01-05 Emergency [facility] 1.2.279.169 [id number] Univers 22:28:10 23:35:00 Anni Freeman 350.1.13.10 i ty of [place] 4.2.7.2.686 [facility] [id number] [place] [address] [place] 2018-12-14 2018-12-14 [facility] 1.2.840.114 [id number] Univers 06:51:33 23:59:00 Encounter Soumya R SPECIALTY 350.1.13.10 ity of [facility] 4.2.7.2.686 [facility] AT [phone] Nj ricardomeghana KAUR 5 [facility] Results Test Description Test Time Test Comments Results Result Comments Source H. PYLORI (BREATH) 2022-03-05 15:23:05 Test Item Value Reference Range Interpretation Comme nts H. PYLORI (BREATH) (test code NEGATIVE NEGATIVE UNLESS OTHERWISE INDICATED, ALL = 49295) TESTING PERFORM ED ATCLINICAL PATHOLOGY [employer] [address] [place] [address] MEDICAL RECORD CLERK: RAMIREZ CERON M.D. CLIA NUMBER [id number] CAP ACCREDITATION N O. [id number] CBC W/AUTO DIFF WITH [id number] 05:19:43 Test Item Value Reference Range Interpretation [...] RBCS 0.04 K/UL 0.00-0.11 (test code = 90861) POCT GLUCOSE (AUTOMATED)2021-09-25 08:08:54 Test Item Value Reference Range Interpretation Comments POCT GLU (test code = 0906884537) 102 mg/dL 70-110 Lab Interpretation (test code = Normal 73557-8) [id number] 05:03:02 Test Item Value Reference Interpretation Comments Range TROPONIN I (test 0.001 ng/mL See_Comment [Automated code = 4450448727) message] The system which generated this result [...] biotin. Lab Interpretation Normal (test code = 92081-4) [facility]. METABOLIC PANEL (13770)2021-09-25 04:52:19 Test Item Value Reference Range Interpretation Comments NA (test code = 140 mmol/L 135-145 0315672061) K (test code = 4.5 mmol/L 3.5-5.0 3867004880) CL (test code = 103 mmol/L 98-108 9285927653) CO2 TOTAL (test code = 25 mmol/L 23-31 4981600207) AGAP (test code = 2-16 6886174344) BUN (test code = 13 mg/dL 7-23 3798437321) GLUCOSE (test code = 141 mg/dL 70-110 H 6807504858) CREATININE (test code = 0.60 mg/dL 0.50-1.04 0318819702) TOTAL BILI (test code = 0.6 mg/dL 0.1-1.2 7636258160) CALCIUM (test code = 9.4 mg/dL 8.6-10.6 9048831591) T PROTEIN (test code = 8.1 g/dL 6.3-8.2 5269740573) ALBUMIN (test code = 4.7 g/dL 3.5-5.0 4500485208) ALK PHOS (test code = 98 U/L 34-122 8721357708) ALTv (test code = 25 U/L 5-35 1742-6) AST(SGOT) (test code = 27 U/L 13-40 5574915190) eGFR (test code = mL/min/1.73m2 7617632122) MARY (test code = MARY) Association of [...] tests). Lab Interpretation Abnormal (test code = 73238-2) [facility] 04:51:39 Test Item Value Reference Range Interpretation Comments LIPASE (test code = 8774794540) 118 U/L 0-220 Lab Interpretation (test code = Normal 31832-7) [facility] WITH [id number] 04:38:15 Test Item Value Reference Range Interpretation Comments WBC (test code = See_Comment H [Automated 3006-2) message] The system which generated this result transmit alesha reference range : 4.30 - 11.10 10*3/?L. The reference range was not used to interpret this result as normal/abnormal . RBC (test code = See_Comment H [Automated 443-8) message] The system which generated this result [...] RDW-SD (test code = 41.5 fL 39.0-49.9 21172-5) RDW-CV (test code = 12.8 % 12.0-15.5 788-0) PLT (test code = See_Comment [Automated 777-3) message] The system which generated this result transmit alesha reference range : 166 - 358 10*3/ ?L. The reference range was not u sed to interpret th is result as normal/abnormal . MPV (test code = 11.7 fL 9.5-12.9 84455-3) NRBC/100 WBC (test See_Comment [Automat ed code = 5924205434) message] The system which generated this result transmit alesha reference range : 0.0 - 10.0 /100 WBCs. The reference range was not used to interpret this result as normal/abnormal . NRBC x10^3 (test code <0.01 See_Comment [Auto mated = 5676335325) message] The system which generated this result transmit alesha reference range : 10*3/?L. The reference range was not used to interpret this result as normal/abnormal . GRAN MAT (NEUT) % 78.8 % (test code = 770-8) IMM GRAN % (test code 0.30 % = 4493594202) LYMPH % (test code = 14.7 % 736-9) MONO % (test code = 5.0 % 5905-5) EOS % (test code = 0.6 % 713-8) BASO % (test code = 0.6 % 706-2) GRAN MAT x10^3(ANC) 10.01 10*3/uL 1.88-7.09 H (test code = 5089962317) IMM GRAN x10^3 (test 0.04 10*3/uL 0.00-0.06 code = 0847470502) LYMPH x10^3 (test code 1.86 10*3/uL 1.32-3.29 = 731-0) MONO x10^3 (test code 0.63 10*3/uL 0.33-0.92 = 742-7) EOS x10^3 (test code = 0.08 10*3/uL 0.03-0.39 711-2) BASO x10^3 (test code 0.07 10*3/uL 0.01-0.07 = 704-7) Lab Interpretation Abnormal (test code = 50861-7) [facility] REFLEX AUTOIMMUNE AB [id number] 08:39:16 Test Item Value Reference Range Interpretation Comments ANTI-NUCLEAR NEGATIVE NEGATIVE Methodology is Indirect ANTIBODIES (test Immunofluor escent Assay code = 3506) (IFA) with a [employer] system using He p2000 cells (Hep2 cells tra nsfected with SS-A/Ro). HIV 1/2 4TH GEN, RFLX [id number] 03:26:41 Test Item Value Reference Range Interpretation Comments HIV 1/2 4TH GEN, NON-REACTIVE NON-REACTIVE UNLESS OTH ERWISE RFLX CONF (test INDICATED, A LL TESTING code = 3514) PERFORMED [facility] NICAL PATHOLOGY LABOR [facility]ITALSun [employer] [employer] [address] [place] [id number] [place] [address] DIRECTOR: RAMIREZ CERON M.D. CLIA NUMBER [id number] CAP ACCREDITATION N O. [id number] [place] [facility] [employer] [id number] 00:00:00 Test Item Value Reference Range Interpretation Comments ANTI-NUCLEAR ANTIBODIES (test code = NEGATIVE 3506) [place] [facility] [id number] 00:00:00 Test Item Value Reference Range Interpretation Comments ANTI-NUCLEAR ANTIBODIES (test code = NEGATIVE 3506) HIV AB/AG COMBO RFLX [id number] 00:00:00 Test Item Value Reference Range Interpretation Comments HIV 1/2 4TH GEN, RFLX CONF (test NON-REACTIVE code = 3514) HIV AB/AG COMBO RFLX [id number] 00:00:00 Test Item Value Reference Range Interpretation Comments HIV 1/2 4TH GEN, RFLX CONF (test NON-REACTIVE code = 3514) [place] [facility] [employer] [id number] 00:00:00 Test Item Value Reference Range Interpretation Comments ANTI-NUCLEAR ANTIBODIES (test code = NEGATIVE 3506) [place] [facility] [employer] AB [id number] 00:00:00 Test Item Value Reference Range Interpretation Comments ANTI-NUCLEAR ANTIBODIES (test code = NEGATIVE 3506) HIV AB/AG COMBO RFLX [id number] 00:00:00 Test Item Value Reference Range Interpretation Comments HIV 1/2 4TH GEN, RFLX CONF (test NON-REACTIVE code = 3514) HIV AB/AG COMBO RFLX [id number] 00:00:00 Test Item Value Reference Range Interpretation Comments HIV 1/2 4TH GEN, RFLX CONF (test NON-REACTIVE code = 3514) [place] [facility] [employer] AB [id number] 00:00:00 Test Item Value Reference Range Interpretation Comments ANTI-NUCLEAR ANTIBODIES (test code = NEGATIVE 3506) [place] RE[employer]LEX [employer] AB [id number] 00:00:00 Test Item Value Reference Range Interpretation Comments ANTI-NUCLEAR ANTIBODIES (test code = NEGATIVE 3506) HIV AB/AG COMBO RFLX [id number] 00:00:00 Test Item Value Reference Range Interpretation Comments HIV 1/2 4TH GEN, RFLX CONF (test NON-REACTIVE code = 3514) HIV AB/AG COMBO RFLX [id number] 00:00:00 Test Item Value Reference Range Interpretation Comments HIV 1/2 4TH GEN, RFLX CONF (test NON-REACTIVE code = 3514) [place] RE[employer] [employer] AB [id number] 00:00:00 Test Item Value Reference Range Interpretation Comments ANTI-NUCLEAR ANTIBODIES (test code = NEGATIVE 3506) HIV AB/AG COMBO RFLX [id number] 00:00:00 Test Item Value Reference Range Interpretation Comments HIV 1/2 4TH GEN, RFLX CONF (test NON-REACTIVE code = 3514) [place] RE[employer] [employer] AB [id number] 00:00:00 Test Item Value Reference Range Interpretation Comments ANTI-NUCLEAR ANTIBODIES (test code = NEGATIVE 3506) HIV AB/AG COMBO RFLX [id number] 00:00:00 Test Item Value Reference Range Interpretation Comments HIV 1/2 4TH GEN, RFLX CONF (test NON-REACTIVE code = 3514) [place] RE[employer]LEX [employer]E AB [id number] 00:00:00 Test Item Value Reference Range Interpretation Comments ANTI-NUCLEAR ANTIBODIES (test code = NEGATIVE 3506) HIV AB/AG COMBO RFLX [id number] 00:00:00 Test Item Value Reference Range Interpretation Comments HIV 1/2 4TH GEN, RFLX CONF (test NON-REACTIVE code = 3514) TSH, THIRD [id number] 02:23:43 Test Item Value Reference Range Interpretation Comments TSH, THIRD GENERATION (test code 3.790 UIU/ML 0.400-4.100 = 2821) RHEUMATOID FACTOR, [id number] 02:15:22 Test Item Value Reference Range Interpretation Comments RHEUMATOID FACTOR, QUANT (test code <10 IU/ML <14 = 3502) LIPID [id number] 02:15:07 Test Item Value Reference Range Interpretation [...] MOREINFORMATION , SEE CLIENT ANNOUNCE MENT AT [email or web address] RISK RATIO LDL/HDL 2.81 RATIO <3.22 (test code = 2238) COMPREHENSIVE METABOLIC [id number] 02:15:07 Test Item Value Reference Range Interpretation Comments GLUCOSE (test code = 98 MG/DL 70-99 2216) BUN (test code = 9 MG/DL -2207) CREATININE (test 0.61 MG/DL 0.60-1.30 code = 2214) eGFR (2020 CKD-EPI) 105 >60 (test code = 62466) ML/MIN/1.73 CALC BUN/CREAT (test 15 RATIO 6- code = 2235) SODIUM (test code = 142 MEQ/L 433-413 4484) POTASSIUM (test code 4.4 MEQ/L 3.5-5.4 = [...] MG/DL See_Comment [Automated message] (test code = 220) The syste m which generated this result transmit alesha reference range : <=1.2. The refe rence range was not u sed to interpret th is result as normal/abnormal . ALKALINE PHOSPHATASE 97 U/L 40-136 (test code = 2203) AST (test code = 19 U/L 9-40 2217) ALT (test code = 25 U/L 5-40 2218) COMPREHENSIVE METABOLIC [id number] 00:00:00 Test Item Value Reference Range Interpretation Comments GLUCOSE (test code = 2217) 98 MG/DL BUN (test code = 2208) 9 MG/DL CREATININE (test code = 2214) 0.61 MG/DL eGFR (2020 CKD-EPI) (test 105 ML/MIN/1.73 code = 63950) CALC BUN/CREAT (test code = 15 RATIO [...] ALKALINE PHOSPHATASE (test 97 U/L code = 220) AST (test code = 2218) 19 U/L ALT (test code = 2219) 25 U/L RHEUMATOID FACTOR, [id number] 00:00:00 Test Item Value Reference Range Interpretation Comments RHEUMATOID FACTOR, QUANT (test code <10 IU/ML = 3502) RHEUMATOID FACTOR, [id number] 00:00:00 Test Item Value Reference Range Interpretation Comments RHEUMATOID FACTOR, QUANT (test code <10 IU/ML = 3502) RHEUMATOID FACTOR, [id number] 00:00:00 Test Item Value Reference Range Interpretation Comments RHEUMATOID FACTOR, QUANT (test code <10 IU/ML = 3502) [id number] 00:00:00 Test Item Value Reference Range Interpretation Comments TSH, THIRD GENERATION (test code 3.790 UIU/ML = 2821) [id number] 00:00:00 Test Item Value Reference Range Interpretation Comments TSH, THIRD GENERATION (test code 3.790 UIU/ML = 2821) [id number] 00:00:00 Test Item Value Reference Range Interpretation Comments TSH, THIRD GENERATION (test code 3.790 UIU/ML = 2821) LIPID [id number] 00:00:00 Test Item Value Reference Range Interpretation Comments CHOLESTEROL (test code = 2210) 215 MG/DL TRIGLYCERIDES (test code = 2232) 187 MG/DL HDL CHOLESTEROL (test code = 2220) 48 MG/DL CALC LDL CHOL (test code = 2237) 135 MG/DL RISK RATIO LDL/HDL (test code = 2.81 RATIO 2238) LIPID [id number] 00:00:00 Test Item Value Reference Range Interpretation Comments CHOLESTEROL (test code = 2210) 215 MG/DL TRIGLYCERIDES (test code = 2232) 187 MG/DL HDL CHOLESTEROL (test code = 2220) 48 MG/DL CALC LDL CHOL (test code = 2237) 135 MG/DL RISK RATIO LDL/HDL (test code = 2.81 RATIO 2238) COMPREHENSIVE METABOLIC [id number] 00:00:00 Test Item Value Reference Range Interpretation Comments GLUCOSE (test code = 2217) 98 MG/DL BUN (test code = 2208) 9 MG/DL CREATININE (test code = 2214) 0.61 MG/DL eGFR (2020 CKD-EPI) (test 105 ML/MIN/1.73 code = 24513) CALC BUN/CREAT (test code = 15 RATIO 2235) SODIUM (test code = 2231) 142 MEQ/L POTASSIUM (test code = 2228) 4.4 MEQ/L CHLORIDE (test code = 2215) 103 MEQ/L CARBON DIOXIDE (test code = 20 MEQ/L 220) CALCIUM (test code = 2209) 9.7 MG/DL [...] code = 2219) 25 U/L COMPREHENSIVE METABOLIC [id number] 00:00:00 Test Item Value Reference Range Interpretation Comments GLUCOSE (test code = 2217) 98 MG/DL BUN (test code = 2208) 9 MG/DL CREATININE (test code = 2214) 0.61 MG/DL eGFR (2020 CKD-EPI) (test 105 ML/MIN/1.73 code = 54680) CALC BUN/CREAT (test code = 15 RATIO [...] code = 2219) 25 U/L RHEUMATOID FACTOR, [id number] 00:00:00 Test Item Value Reference Range Interpretation Comments RHEUMATOID FACTOR, QUANT (test code <10 IU/ML = 3502) RHEUMATOID FACTOR, [id number] 00:00:00 Test Item Value Reference Range Interpretation Comments RHEUMATOID FACTOR, QUANT (test code <10 IU/ML = 3502) RHEUMATOID FACTOR, [id number] 00:00:00 Test Item Value Reference Range Interpretation Comments RHEUMATOID FACTOR, QUANT (test code <10 IU/ML = 3502) [id number] 00:00:00 Test Item Value Reference Range Interpretation Comments TSH, THIRD GENERATION (test code 3.790 UIU/ML = 2821) [id number] 00:00:00 Test Item Value Reference Range Interpretation Comments TSH, THIRD GENERATION (test code 3.790 UIU/ML = 2821) [id number] 00:00:00 Test Item Value Reference Range Interpretation Comments TSH, THIRD GENERATION (test code 3.790 UIU/ML = 2821) LIPID [id number] 00:00:00 Test Item Value Reference Range Interpretation Comments CHOLESTEROL (test code = 2210) 215 MG/DL TRIGLYCERIDES (test code = 2232) 187 MG/DL HDL CHOLESTEROL (test code = 2220) 48 MG/DL CALC LDL CHOL (test code = 2237) 135 MG/DL RISK RATIO LDL/HDL (test code = 2.81 RATIO 2238) LIPID [id number] 00:00:00 Test Item Value Reference Range Interpretation Comments CHOLESTEROL (test code = 2210) 215 MG/DL TRIGLYCERIDES (test code = 2232) 187 MG/DL HDL CHOLESTEROL (test code = 2220) 48 MG/DL CALC LDL CHOL (test code = 2237) 135 MG/DL RISK RATIO LDL/HDL (test code = 2.81 RATIO 2238) COMPREHENSIVE METABOLIC [id number] 00:00:00 Test Item Value Reference Range Interpretation Comments GLUCOSE (test code = 2217) 98 MG/DL BUN (test code = 2208) 9 MG/DL CREATININE (test code = 2214) 0.61 MG/DL eGFR (2020 CKD-EPI) (test 105 ML/MIN/1.73 code = 56653) CALC BUN/CREAT (test code = 15 RATIO [...] code = 2219) 25 U/L COMPREHENSIVE METABOLIC [id number] 00:00:00 Test Item Value Reference Range Interpretation Comments GLUCOSE (test code = 2217) 98 MG/DL BUN (test code = 2208) 9 MG/DL CREATININE (test code = 2214) 0.61 MG/DL eGFR (2020 CKD-EPI) (test 105 ML/MIN/1.73 code = 72015) CALC BUN/CREAT (test code = 15 RATIO [...] code = 2219) 25 U/L RHEUMATOID FACTOR, [id number] 00:00:00 Test Item Value Reference Range Interpretation Comments RHEUMATOID FACTOR, QUANT (test code <10 IU/ML = 3502) RHEUMATOID FACTOR, [id number] 00:00:00 Test Item Value Reference Range Interpretation Comments RHEUMATOID FACTOR, QUANT (test code <10 IU/ML = 3502) RHEUMATOID FACTOR, [id number] 00:00:00 Test Item Value Reference Range Interpretation Comments RHEUMATOID FACTOR, QUANT (test code <10 IU/ML = 3502) [id number] 00:00:00 Test Item Value Reference Range Interpretation Comments TSH, THIRD GENERATION (test code 3.790 UIU/ML = 2821) [id number] 00:00:00 Test Item Value Reference Range Interpretation Comments TSH, THIRD GENERATION (test code 3.790 UIU/ML = 2821) [id number] 00:00:00 Test Item Value Reference Range Interpretation Comments TSH, THIRD GENERATION (test code 3.790 UIU/ML = 2821) LIPID [id number] 00:00:00 Test Item Value Reference Range Interpretation Comments CHOLESTEROL (test code = 2210) 215 MG/DL TRIGLYCERIDES (test code = 2232) 187 MG/DL HDL CHOLESTEROL (test code = 2220) 48 MG/DL CALC LDL CHOL (test code = 2237) 135 MG/DL RISK RATIO LDL/HDL (test code = 2.81 RATIO 2238) COMPREHENSIVE METABOLIC [id number] 00:00:00 Test Item Value Reference Range Interpretation Comments GLUCOSE (test code = 2217) 98 MG/DL BUN (test code = 2208) 9 MG/DL CREATININE (test code = 2214) 0.61 MG/DL eGFR (2020 CKD-EPI) (test 105 ML/MIN/1.73 code = 74275) CALC BUN/CREAT (test code = 15 RATIO [...] code = 2219) 25 U/L RHEUMATOID FACTOR, [id number] 00:00:00 Test Item Value Reference Range Interpretation Comments RHEUMATOID FACTOR, QUANT (test code <10 IU/ML = 3502) RHEUMATOID FACTOR, [id number] 00:00:00 Test Item Value Reference Range Interpretation Comments RHEUMATOID FACTOR, QUANT (test code <10 IU/ML = 3502) [id number] 00:00:00 Test Item Value Reference Range Interpretation Comments TSH, THIRD GENERATION (test code 3.790 UIU/ML = 2821) [id number] 00:00:00 Test Item Value Reference Range Interpretation Comments TSH, THIRD GENERATION (test code 3.790 UIU/ML = 2821) LIPID [id number] 00:00:00 Test Item Value Reference Range Interpretation Comments CHOLESTEROL (test code = 2210) 215 MG/DL TRIGLYCERIDES (test code = 2232) 187 MG/DL HDL CHOLESTEROL (test code = 2220) 48 MG/DL CALC LDL CHOL (test code = 2237) 135 MG/DL RISK RATIO LDL/HDL (test code = 2.81 RATIO 2238) COMPREHENSIVE METABOLIC [id number] 00:00:00 Test Item Value Reference Range Interpretation Comments GLUCOSE (test code = 2217) 98 MG/DL BUN (test code = 2208) 9 MG/DL CREATININE (test code = 2214) 0.61 MG/DL eGFR (2020 CKD-EPI) (test 105 ML/MIN/1.73 code = 96370) CALC BUN/CREAT (test code = 15 RATIO [...] code = 2219) 25 U/L RHEUMATOID FACTOR, [id number] 00:00:00 Test Item Value Reference Range Interpretation Comments RHEUMATOID FACTOR, QUANT (test code <10 IU/ML = 3502) RHEUMATOID FACTOR, [id number] 00:00:00 Test Item Value Reference Range Interpretation Comments RHEUMATOID FACTOR, QUANT (test code <10 IU/ML = 3502) [id number] 00:00:00 Test Item Value Reference Range Interpretation Comments TSH, THIRD GENERATION (test code 3.790 UIU/ML = 2821) [id number] 00:00:00 Test Item Value Reference Range Interpretation Comments TSH, THIRD GENERATION (test code 3.790 UIU/ML = 2821) LIPID [id number] 00:00:00 Test Item Value Reference Range Interpretation Comments CHOLESTEROL (test code = 2210) 215 MG/DL TRIGLYCERIDES (test code = 2232) 187 MG/DL HDL CHOLESTEROL (test code = 2220) 48 MG/DL CALC LDL CHOL (test code = 2237) 135 MG/DL RISK RATIO LDL/HDL (test code = 2.81 RATIO 2238) COMPREHENSIVE METABOLIC [id number] 00:00:00 Test Item Value Reference Range Interpretation Comments GLUCOSE (test code = 2217) 98 MG/DL BUN (test code = 2208) 9 MG/DL CREATININE (test code = 2214) 0.61 MG/DL eGFR (2020 CKD-EPI) (test 105 ML/MIN/1.73 code = 82310) CALC BUN/CREAT (test code = 15 RATIO [...] code = 2219) 25 U/L RHEUMATOID FACTOR, [id number] 00:00:00 Test Item Value Reference Range Interpretation Comments RHEUMATOID FACTOR, QUANT (test code <10 IU/ML = 3502) RHEUMATOID FACTOR, [id number] 00:00:00 Test Item Value Reference Range Interpretation Comments RHEUMATOID FACTOR, QUANT (test code <10 IU/ML = 3502) [id number] 00:00:00 Test Item Value Reference Range Interpretation Comments TSH, THIRD GENERATION (test code 3.790 UIU/ML = 2821) [id number] 00:00:00 Test Item Value Reference Range Interpretation Comments TSH, THIRD GENERATION (test code 3.790 UIU/ML = 2821) LIPID [id number] 00:00:00 Test Item Value Reference Range Interpretation Comments CHOLESTEROL (test code = 2210) 215 MG/DL TRIGLYCERIDES (test code = 2232) 187 MG/DL HDL CHOLESTEROL (test code = 2220) 48 MG/DL CALC LDL CHOL (test code = 2237) 135 MG/DL RISK RATIO LDL/HDL (test code = 2.81 RATIO 2238) LIPID [id number] 00:00:00 Test Item Value Reference Range Interpretation Comments CHOLESTEROL (test code = 2210) 215 MG/DL TRIGLYCERIDES (test code = 2232) 187 MG/DL HDL CHOLESTEROL (test code = 2220) 48 MG/DL CALC LDL CHOL (test code = 2237) 135 MG/DL RISK RATIO LDL/HDL (test code = 2.81 RATIO 2238) COMPREHENSIVE METABOLIC [id number] 00:00:00 Test Item Value Reference Range Interpretation Comments GLUCOSE (test code = 2217) 98 MG/DL BUN (test code = 2208) 9 MG/DL CREATININE (test code = 2214) 0.61 MG/DL eGFR (2020 CKD-EPI) (test 105 ML/MIN/1.73 code = 05368) CALC BUN/CREAT (test code = 15 RATIO [...] = 0.6 MG/DL 220) ALKALINE PHOSPHATASE (test 97 U/L code = 2204) AST (test code = 2218) 19 U/L ALT (test code = 2219) 25 U/L CBC W/AUTO DIFF WITH [id number] 04:28:25 Test Item Value Reference Range Interpretation [...] RBCS 0.00 K/UL 0.00-0.11 (test code = 57476) CBC W/AUTO [id number] 00:00:00 Test Item Value Reference Range Interpretation [...] NUCLEATED RBCS (test code = 0.00 K/UL 08431) CBC W/AUTO [id number] 00:00:00 Test Item Value Reference Range Interpretation [...] NUCLEATED RBCS (test code = 0.00 K/UL 36209) CBC W/AUTO [id number] 00:00:00 Test Item Value Reference Range Interpretation [...] NUCLEATED RBCS (test code = 0.00 K/UL 01732) CBC W/AUTO [id number] 00:00:00 Test Item Value Reference Range Interpretation [...] NUCLEATED RBCS (test code = 0.00 K/UL 10417) CBC W/AUTO [id number] 00:00:00 Test Item Value Reference Range Interpretation [...] NUCLEATED RBCS (test code = 0.00 K/UL 91718) CBC W/AUTO [id number] 00:00:00 Test Item Value Reference Range Interpretation [...] NUCLEATED RBCS (test code = 0.00 K/UL 79871) CBC W/AUTO [id number] 00:00:00 Test Item Value Reference Range Interpretation [...] NUCLEATED RBCS (test code = 0.00 K/UL 89857) CBC W/AUTO [id number] 00:00:00 Test Item Value Reference Range Interpretation [...] NUCLEATED RBCS (test code = 0.00 K/UL 47419) CBC W/AUTO [id number] 00:00:00 Test Item Value Reference Range Interpretation [...] NUCLEATED RBCS (test code = 0.00 K/UL 37519) CBC W/AUTO [id number] 00:00:00 Test Item Value Reference Range Interpretation [...] NUCLEATED RBCS (test code = 0.00 K/UL 94009) CBC W/AUTO [id number] 00:00:00 Test Item Value Reference Range Interpretation [...] NUCLEATED RBCS (test code = 0.00 K/UL 80406) CBC W/AUTO [id number] 00:00:00 Test Item Value Reference Range Interpretation [...] NUCLEATED RBCS (test code = 0.00 K/UL 27053) CBC W/AUTO [id number] 00:00:00 Test Item Value Reference Range Interpretation [...] NUCLEATED RBCS (test code = 0.00 K/UL 02691) CBC W/AUTO [id number] 00:00:00 Test Item Value Reference Range Interpretation [...] NUCLEATED RBCS (test code = 0.00 K/UL 10332) CBC W/AUTO [id number] 00:00:00 Test Item Value Reference Range Interpretation [...] NUCLEATED RBCS (test code = 0.00 K/UL 23403) [id number] 00:00:00 Test Item Value Reference Range Interpretation Comments LIPASE (test code = 2057) 26 U/L [id number] 00:00:00 Test Item Value Reference Range Interpretation Comments LIPASE (test code = 2057) 26 U/L [id number] 00:00:00 Test Item Value Reference Range Interpretation Comments LIPASE (test code = 2057) 26 U/L CBC W/AUTO [id number] 00:00:00 Test Item Value Reference Range Interpretation [...] NUCLEATED RBCS (test code = 0.00 K/UL 97392) CBC W/AUTO [id number] 00:00:00 Test Item Value Reference Range Interpretation [...] NUCLEATED RBCS (test code = 0.00 K/UL 01263) CBC W/AUTO [id number] 00:00:00 Test Item Value Reference Range Interpretation [...] NUCLEATED RBCS (test code = 0.00 K/UL 53226) COMPREHENSIVE METABOLIC [id number] 00:00:00 Test Item Value Reference Range Interpretation Comments GLUCOSE (test code = 2217) 93 MG/DL BUN (test code = 2208) 9 MG/DL CREATININE (test code = 2214) 0.63 MG/DL eGFR AMER. (test code 117 ML/MIN/1.73 = 10533) eGFR NON- AMER. (test 101 ML/MIN/1.73 code = 07412) CALC BUN/CREAT (test code = 14 RATIO [...] code = 2219) 30 U/L COMPREHENSIVE METABOLIC [id number] 00:00:00 Test Item Value Reference Range Interpretation Comments GLUCOSE (test code = 2217) 93 MG/DL BUN (test code = 2208) 9 MG/DL CREATININE (test code = 2214) 0.63 MG/DL eGFR AMER. (test code 117 ML/MIN/1.73 = 30730) eGFR NON- AMER. (test 101 ML/MIN/1.73 code = 10899) CALC BUN/CREAT (test code = 14 RATIO [...] ALT (test code = 2219) 30 U/L [id number] 00:00:00 Test Item Value Reference Range Interpretation Comments AMYLASE (test code = 2205) 58 U/L [id number] 00:00:00 Test Item Value Reference Range Interpretation Comments AMYLASE (test code = 2205) 58 U/L [id number] 00:00:00 Test Item Value Reference Range Interpretation Comments LIPASE (test code = 2057) 26 U/L [id number] 00:00:00 Test Item Value Reference Range Interpretation Comments LIPASE (test code = 2057) 26 U/L [id number] 00:00:00 Test Item Value Reference Range Interpretation Comments LIPASE (test code = 205) 26 U/L CBC W/AUTO [id number] 00:00:00 Test Item Value Reference Range Interpretation [...] NUCLEATED RBCS (test code = 0.00 K/UL 39322) CBC W/AUTO [id number] 00:00:00 Test Item Value Reference Range Interpretation [...] NUCLEATED RBCS (test code = 0.00 K/UL 07557) CBC W/AUTO [id number] 00:00:00 Test Item Value Reference Range Interpretation [...] NUCLEATED RBCS (test code = 0.00 K/UL 23954) CBC W/AUTO [id number] 00:00:00 Test Item Value Reference Range Interpretation [...] NUCLEATED RBCS (test code = 0.00 K/UL 16888) CBC W/AUTO [id number] 00:00:00 Test Item Value Reference Range Interpretation [...] NUCLEATED RBCS (test code = 0.00 K/UL 05278) COMPREHENSIVE METABOLIC [id number] 00:00:00 Test Item Value Reference Range Interpretation Comments GLUCOSE (test code = 2217) 93 MG/DL BUN (test code = 2208) 9 MG/DL CREATININE (test code = 2214) 0.63 MG/DL eGFR AMER. (test code 117 ML/MIN/1.73 = 81568) eGFR NON- AMER. (test 101 ML/MIN/1.73 code = 12135) CALC BUN/CREAT (test code = 14 RATIO [...] code = 2219) 30 U/L COMPREHENSIVE METABOLIC [id number] 00:00:00 Test Item Value Reference Range Interpretation Comments GLUCOSE (test code = 2217) 93 MG/DL BUN (test code = 2208) 9 MG/DL CREATININE (test code = 2214) 0.63 MG/DL eGFR AMER. (test code 117 ML/MIN/1.73 = 50758) eGFR NON- AMER. (test 101 ML/MIN/1.73 code = 62094) CALC BUN/CREAT (test code = 14 RATIO [...] ALT (test code = 2219) 30 U/L [id number] 00:00:00 Test Item Value Reference Range Interpretation Comments AMYLASE (test code = 2205) 58 U/L [id number] 00:00:00 Test Item Value Reference Range Interpretation Comments AMYLASE (test code = 2205) 58 U/L [id number] 00:00:00 Test Item Value Reference Range Interpretation Comments LIPASE (test code = 8) 26 U/L [id number] 00:00:00 Test Item Value Reference Range Interpretation Comments LIPASE (test code = 2057) 26 U/L [id number] 00:00:00 Test Item Value Reference Range Interpretation Comments LIPASE (test code = 2057) 26 U/L COMPREHENSIVE METABOLIC [id number] 00:00:00 Test Item Value Reference Range Interpretation Comments GLUCOSE (test code = 2217) 93 MG/DL BUN (test code = 2208) 9 MG/DL CREATININE (test code = 2214) 0.63 MG/DL eGFR AMER. (test code 117 ML/MIN/1.73 = 87717) eGFR NON- AMER. (test 101 ML/MIN/1.73 code = 66511) CALC BUN/CREAT (test code = 14 RATIO [...] ALT (test code = 2219) 30 U/L [id number] 00:00:00 Test Item Value Reference Range Interpretation Comments AMYLASE (test code = 2205) 58 U/L [id number] 00:00:00 Test Item Value Reference Range Interpretation Comments LIPASE (test code = 2057) 26 U/L [id number] 00:00:00 Test Item Value Reference Range Interpretation Comments LIPASE (test code = 2058) 26 U/L CBC W/AUTO [id number] 00:00:00 Test Item Value Reference Range Interpretation [...] NUCLEATED RBCS (test code = 0.00 K/UL 84864) CBC W/AUTO [id number] 00:00:00 Test Item Value Reference Range Interpretation [...] NUCLEATED RBCS (test code = 0.00 K/UL 14207) COMPREHENSIVE METABOLIC [id number] 00:00:00 Test Item Value Reference Range Interpretation Comments GLUCOSE (test code = 2217) 93 MG/DL BUN (test code = 2208) 9 MG/DL CREATININE (test code = 2214) 0.63 MG/DL eGFR AMER. (test code 117 ML/MIN/1.73 = 58226) eGFR NON- AMER. (test 101 ML/MIN/1.73 code = 81524) CALC BUN/CREAT (test code = 14 RATIO [...] ALT (test code = 2219) 30 U/L [id number] 00:00:00 Test Item Value Reference Range Interpretation Comments AMYLASE (test code = 2205) 58 U/L [id number] 00:00:00 Test Item Value Reference Range Interpretation Comments LIPASE (test code = 2057) 26 U/L [id number] 00:00:00 Test Item Value Reference Range Interpretation Comments LIPASE (test code = 205) 26 U/L CBC W/AUTO [id number] 00:00:00 Test Item Value Reference Range Interpretation [...] NUCLEATED RBCS (test code = 0.00 K/UL 46651) CBC W/AUTO [id number] 00:00:00 Test Item Value Reference Range Interpretation [...] NUCLEATED RBCS (test code = 0.00 K/UL 59511) COMPREHENSIVE METABOLIC [id number] 00:00:00 Test Item Value Reference Range Interpretation Comments GLUCOSE (test code = 2217) 93 MG/DL BUN (test code = 2208) 9 MG/DL CREATININE (test code = 2214) 0.63 MG/DL eGFR AMER. (test code 117 ML/MIN/1.73 = 74713) eGFR NON- AMER. (test 101 ML/MIN/1.73 code = 58789) CALC BUN/CREAT (test code = 14 RATIO [...] ALT (test code = 2219) 30 U/L [id number] 00:00:00 Test Item Value Reference Range Interpretation Comments AMYLASE (test code = 2205) 58 U/L [id number] 00:00:00 Test Item Value Reference Range Interpretation Comments LIPASE (test code = 2057) 26 U/L [id number] 00:00:00 Test Item Value Reference Range Interpretation Comments LIPASE (test code = 2057) 26 U/L CBC W/AUTO [id number] 00:00:00 Test Item Value Reference Range Interpretation [...] NUCLEATED RBCS (test code = 0.00 K/UL 83468) CBC W/AUTO [id number] 00:00:00 Test Item Value Reference Range Interpretation [...] NUCLEATED RBCS (test code = 0.00 K/UL 74607) CBC W/AUTO [id number] 00:00:00 Test Item Value Reference Range Interpretation [...] NUCLEATED RBCS (test code = 0.00 K/UL 47586) COMPREHENSIVE METABOLIC [id number] 00:00:00 Test Item Value Reference Range Interpretation Comments GLUCOSE (test code = 2217) 93 MG/DL BUN (test code = 2208) 9 MG/DL CREATININE (test code = 2214) 0.63 MG/DL eGFR AMER. (test code 117 ML/MIN/1.73 = 44974) eGFR NON- AMER. (test 101 ML/MIN/1.73 code = 15878) CALC BUN/CREAT (test code = 14 RATIO [...] code = 2219) 30 U/L COMPREHENSIVE METABOLIC [id number] 00:00:00 Test Item Value Reference Range Interpretation Comments GLUCOSE (test code = 2217) 93 MG/DL BUN (test code = 2208) 9 MG/DL CREATININE (test code = 2214) 0.63 MG/DL eGFR AMER. (test code 117 ML/MIN/1.73 = 10238) eGFR NON- AMER. (test 101 ML/MIN/1.73 code = 20945) CALC BUN/CREAT (test code = 14 RATIO [...] ALT (test code = 2219) 30 U/L [id number] 00:00:00 Test Item Value Reference Range Interpretation Comments AMYLASE (test code = 2205) 58 U/L [id number] 00:00:00 Test Item Value Reference Range Interpretation Comments AMYLASE (test code = 2205) 58 U/L SARS-CoV-2 (COVID-19) by RT-PCR (HIGH RISK)2020-12-27 00:00:00 Test Item Value Reference Range Interpretation Comments SARS-CoV-2 INTERPRETATION (test NEGATIVE code = 34223) SOURCE (test code = 27639) NOT SPECIFIED SARS-CoV-2 (COVID-19) by RT-PCR (HIGH RISK)2020-12-27 00:00:00 Test Item Value Reference Range Interpretation Comments SARS-CoV-2 INTERPRETATION (test NEGATIVE code = 21588) SOURCE (test code = 33894) NOT SPECIFIED SARS-CoV-2 (COVID-19) by RT-PCR (HIGH RISK)2020-12-27 00:00:00 Test Item Value Reference Range Interpretation Comments SARS-CoV-2 INTERPRETATION (test NEGATIVE code = 22123) SOURCE (test code = 98917) NOT SPECIFIED SARS-CoV-2 (COVID-19) by RT-PCR (HIGH RISK)2020-12-27 00:00:00 Test Item Value Reference Range Interpretation Comments SARS-CoV-2 INTERPRETATION (test NEGATIVE code = 22787) SOURCE (test code = 68644) NOT SPECIFIED SARS-CoV-2 (COVID-19) by RT-PCR (HIGH RISK)2020-12-27 00:00:00 Test Item Value Reference Range Interpretation Comments SARS-CoV-2 INTERPRETATION (test NEGATIVE code = 63612) SOURCE (test code = 02625) NOT SPECIFIED SARS-CoV-2 (COVID-19) by RT-PCR (HIGH RISK)2020-12-27 00:00:00 Test Item Value Reference Range Interpretation Comments SARS-CoV-2 INTERPRETATION (test NEGATIVE code = 72159) SOURCE (test code = 82284) NOT SPECIFIED SARS-CoV-2 (COVID-19) by RT-PCR (HIGH RISK)2020-12-27 00:00:00 Test Item Value Reference Range Interpretation Comments SARS-CoV-2 INTERPRETATION (test NEGATIVE code = 06316) SOURCE (test code = 83319) NOT SPECIFIED SARS-CoV-2 (COVID-19) by RT-PCR (HIGH RISK)2020-12-27 00:00:00 Test Item Value Reference Range Interpretation Comments SARS-CoV-2 INTERPRETATION (test NEGATIVE code = 66734) SOURCE (test code = 56643) NOT SPECIFIED SARS-CoV-2 (COVID-19) by RT-PCR (HIGH RISK)2020-12-27 00:00:00 Test Item Value Reference Range Interpretation Comments SARS-CoV-2 INTERPRETATION (test NEGATIVE code = 05139) SOURCE (test code = 64250) NOT SPECIFIED RHEUMATOID FACTOR, [id number] 00:00:00 Test Item Value Reference Range Interpretation Comments RHEUMATOID FACTOR, QUANT (test code <10 IU/ML = 3502) RHEUMATOID FACTOR, [id number] 00:00:00 Test Item Value Reference Range Interpretation Comments RHEUMATOID FACTOR, QUANT (test code <10 IU/ML = 3502) RHEUMATOID FACTOR, [id number] 00:00:00 Test Item Value Reference Range Interpretation Comments RHEUMATOID FACTOR, QUANT (test code <10 IU/ML = 3502) MANSOOR (ANTI-NUCLEAR AB) WITH REFLEX [id number] 00:00:00 Test Item Value Reference Range Interpretation Comments ANTI-NUCLEAR ANTIBODIES (test code = NEGATIVE 3506) MANSOOR (ANTI-NUCLEAR AB) WITH REFLEX [id number] 00:00:00 Test Item Value Reference Range Interpretation Comments ANTI-NUCLEAR ANTIBODIES (test code = NEGATIVE 3506) CCP [id number] 00:00:00 Test Item Value Reference Range Interpretation Comments CCP IgG (test code = 93469) <0.5 U/ML CCP [id number] 00:00:00 Test Item Value Reference Range Interpretation Comments CCP IgG (test code = 47703) <0.5 U/ML CCP [id number] 00:00:00 Test Item Value Reference Range Interpretation Comments CCP IgG (test code = 98560) <0.5 U/ML CBC W/AUTO [id number] 00:00:00 Test Item Value Reference Range Interpretation [...] code = 1015) 192 K/UL CBC W/AUTO [id number] 00:00:00 Test Item Value Reference Range Interpretation [...] code = 1015) 192 K/UL CBC W/AUTO [id number] 00:00:00 Test Item Value Reference Range Interpretation [...] COUNT (test code = 1015) 192 K/UL [id number] 00:00:00 Test Item Value Reference Range Interpretation Comments TSH, THIRD GENERATION (test code 2.790 UIU/ML = 2821) [id number] 00:00:00 Test Item Value Reference Range Interpretation Comments TSH, THIRD GENERATION (test code 2.790 UIU/ML = 2821) [id number] 00:00:00 Test Item Value Reference Range Interpretation Comments TSH, THIRD GENERATION (test code 2.790 UIU/ML = 2821) COMPREHENSIVE METABOLIC [id number] 00:00:00 Test Item Value Reference Range Interpretation Comments GLUCOSE (test code = 2217) 113 MG/DL BUN (test code = 2208) 12 MG/DL CREATININE (test code = 2214) 0.64 MG/DL eGFR AMER. (test code 117 ML/MIN/1.73 = 33005) eGFR NON- AMER. (test 101 ML/MIN/1.73 code = 63544) CALC BUN/CREAT (test code = 19 RATIO [...] code = 2219) 29 U/L COMPREHENSIVE METABOLIC [id number] 00:00:00 Test Item Value Reference Range Interpretation Comments GLUCOSE (test code = 2217) 113 MG/DL BUN (test code = 2208) 12 MG/DL CREATININE (test code = 2214) 0.64 MG/DL eGFR AMER. (test code 117 ML/MIN/1.73 = 03766) eGFR NON- AMER. (test 101 ML/MIN/1.73 code = 64292) CALC BUN/CREAT (test code = 19 RATIO 2235) SODIUM (test code = 2231) 141 MEQ/L POTASSIUM (test code = 2228) 4.3 MEQ/L CHLORIDE (test code = 2215) 104 MEQ/L CARBON DIOXIDE (test code = 25 MEQ/L 2205) CALCIUM (test code = 2209) 9.5 MG/DL PROTEIN, TOTAL (test code = 7.4 G/DL 2228) ALBUMIN (test code = 220) 4.6 G/DL CALC GLOBULIN (test code = 2.8 G/DL 2239) CALC A/G RATIO (test code = 1.6 RATIO 2233) BILIRUBIN, TOTAL (test code = 0.4 MG/DL 2206) ALKALINE PHOSPHATASE (test 90 U/L code = 2204) AST (test code = 2218) 19 U/L ALT (test code = 2219) 29 U/L LIPID [id number] 00:00:00 Test Item Value Reference Range Interpretation Comments CHOLESTEROL (test code = 2210) 225 MG/DL TRIGLYCERIDES (test code = 2232) 196 MG/DL HDL CHOLESTEROL (test code = 2220) 50 MG/DL CALC LDL CHOL (test code = 2237) 141 MG/DL RISK RATIO LDL/HDL (test code = 2.82 RATIO 2238) LIPID [id number] 00:00:00 Test Item Value Reference Range Interpretation Comments CHOLESTEROL (test code = 2210) 225 MG/DL TRIGLYCERIDES (test code = 2232) 196 MG/DL HDL CHOLESTEROL (test code = 2220) 50 MG/DL CALC LDL CHOL (test code = 2237) 141 MG/DL RISK RATIO LDL/HDL (test code = 2.82 RATIO 2238) RHEUMATOID FACTOR, [id number] 00:00:00 Test Item Value Reference Range Interpretation Comments RHEUMATOID FACTOR, QUANT (test code <10 IU/ML = 3502) RHEUMATOID FACTOR, [id number] 00:00:00 Test Item Value Reference Range Interpretation Comments RHEUMATOID FACTOR, QUANT (test code <10 IU/ML = 3502) RHEUMATOID FACTOR, [id number] 00:00:00 Test Item Value Reference Range Interpretation Comments RHEUMATOID FACTOR, QUANT (test code <10 IU/ML = 3502) MANSOOR (ANTI-NUCLEAR AB) WITH REFLEX [id number] 00:00:00 Test Item Value Reference Range Interpretation Comments ANTI-NUCLEAR ANTIBODIES (test code = NEGATIVE 3506) MANSOOR (ANTI-NUCLEAR AB) WITH REFLEX [id number] 00:00:00 Test Item Value Reference Range Interpretation Comments ANTI-NUCLEAR ANTIBODIES (test code = NEGATIVE 3506) CCP [id number] 00:00:00 Test Item Value Reference Range Interpretation Comments CCP IgG (test code = 24421) <0.5 U/ML CCP [id number] 00:00:00 Test Item Value Reference Range Interpretation Comments CCP IgG (test code = 21447) <0.5 U/ML CCP [id number] 00:00:00 Test Item Value Reference Range Interpretation Comments CCP IgG (test code = 02149) <0.5 U/ML CBC W/AUTO [id number] 00:00:00 Test Item Value Reference Range Interpretation [...] code = 1015) 192 K/UL CBC W/AUTO [id number] 00:00:00 Test Item Value Reference Range Interpretation [...] code = 1015) 192 K/UL CBC W/AUTO [id number] 00:00:00 Test Item Value Reference Range Interpretation [...] COUNT (test code = 1015) 192 K/UL [id number] 00:00:00 Test Item Value Reference Range Interpretation Comments TSH, THIRD GENERATION (test code 2.790 UIU/ML = 2821) [id number] 00:00:00 Test Item Value Reference Range Interpretation Comments TSH, THIRD GENERATION (test code 2.790 UIU/ML = 2821) [id number] 00:00:00 Test Item Value Reference Range Interpretation Comments TSH, THIRD GENERATION (test code 2.790 UIU/ML = 2821) COMPREHENSIVE METABOLIC [id number] 00:00:00 Test Item Value Reference Range Interpretation Comments GLUCOSE (test code = 2217) 113 MG/DL BUN (test code = 2208) 12 MG/DL CREATININE (test code = 2214) 0.64 MG/DL eGFR AMER. (test code 117 ML/MIN/1.73 = 68533) eGFR NON- AMER. (test 101 ML/MIN/1.73 code = 61816) CALC BUN/CREAT (test code = 19 RATIO [...] code = 2219) 29 U/L COMPREHENSIVE METABOLIC [id number] 00:00:00 Test Item Value Reference Range Interpretation Comments GLUCOSE (test code = 2217) 113 MG/DL BUN (test code = 2208) 12 MG/DL CREATININE (test code = 2214) 0.64 MG/DL eGFR AMER. (test code 117 ML/MIN/1.73 = 48125) eGFR NON- AMER. (test 101 ML/MIN/1.73 code = 60970) CALC BUN/CREAT (test code = 19 RATIO [...] code = 2219) 29 U/L COMPREHENSIVE METABOLIC [id number] 00:00:00 Test Item Value Reference Range Interpretation Comments GLUCOSE (test code = 2217) 113 MG/DL BUN (test code = 2208) 12 MG/DL CREATININE (test code = 2214) 0.64 MG/DL eGFR AMER. (test code 117 ML/MIN/1.73 = 39263) eGFR NON- AMER. (test 101 ML/MIN/1.73 code = 12896) CALC BUN/CREAT (test code = 19 RATIO [...] (test code = 2219) 29 U/L LIPID [id number] 00:00:00 Test Item Value Reference Range Interpretation Comments CHOLESTEROL (test code = 2210) 225 MG/DL TRIGLYCERIDES (test code = 2232) 196 MG/DL HDL CHOLESTEROL (test code = 2220) 50 MG/DL CALC LDL CHOL (test code = 2237) 141 MG/DL RISK RATIO LDL/HDL (test code = 2.82 RATIO 2238) LIPID [id number] 00:00:00 Test Item Value Reference Range Interpretation Comments CHOLESTEROL (test code = 2210) 225 MG/DL TRIGLYCERIDES (test code = 2232) 196 MG/DL HDL CHOLESTEROL (test code = 2220) 50 MG/DL CALC LDL CHOL (test code = 2237) 141 MG/DL RISK RATIO LDL/HDL (test code = 2.82 RATIO 2238) RHEUMATOID FACTOR, [id number] 00:00:00 Test Item Value Reference Range Interpretation Comments RHEUMATOID FACTOR, QUANT (test code <10 IU/ML = 3502) RHEUMATOID FACTOR, [id number] 00:00:00 Test Item Value Reference Range Interpretation Comments RHEUMATOID FACTOR, QUANT (test code <10 IU/ML = 3502) RHEUMATOID FACTOR, [id number] 00:00:00 Test Item Value Reference Range Interpretation Comments RHEUMATOID FACTOR, QUANT (test code <10 IU/ML = 3502) MANSOOR (ANTI-NUCLEAR AB) WITH REFLEX [id number] 00:00:00 Test Item Value Reference Range Interpretation Comments ANTI-NUCLEAR ANTIBODIES (test code = NEGATIVE 3506) MANSOOR (ANTI-NUCLEAR AB) WITH REFLEX [id number] 00:00:00 Test Item Value Reference Range Interpretation Comments ANTI-NUCLEAR ANTIBODIES (test code = NEGATIVE 3506) CCP [id number] 00:00:00 Test Item Value Reference Range Interpretation Comments CCP IgG (test code = 62333) <0.5 U/ML CCP [id number] 00:00:00 Test Item Value Reference Range Interpretation Comments CCP IgG (test code = 96033) <0.5 U/ML CCP [id number] 00:00:00 Test Item Value Reference Range Interpretation Comments CCP IgG (test code = 24158) <0.5 U/ML CBC W/AUTO [id number] 00:00:00 Test Item Value Reference Range Interpretation [...] code = 1015) 192 K/UL CBC W/AUTO [id number] 00:00:00 Test Item Value Reference Range Interpretation [...] code = 1015) 192 K/UL CBC W/AUTO [id number] 00:00:00 Test Item Value Reference Range Interpretation [...] COUNT (test code = 1015) 192 K/UL [id number] 00:00:00 Test Item Value Reference Range Interpretation Comments TSH, THIRD GENERATION (test code 2.790 UIU/ML = 2821) [id number] 00:00:00 Test Item Value Reference Range Interpretation Comments TSH, THIRD GENERATION (test code 2.790 UIU/ML = 2821) [id number] 00:00:00 Test Item Value Reference Range Interpretation Comments TSH, THIRD GENERATION (test code 2.790 UIU/ML = 2821) LIPID [id number] 00:00:00 Test Item Value Reference Range Interpretation Comments CHOLESTEROL (test code = 2210) 225 MG/DL TRIGLYCERIDES (test code = 2232) 196 MG/DL HDL CHOLESTEROL (test code = 2220) 50 MG/DL CALC LDL CHOL (test code = 2237) 141 MG/DL RISK RATIO LDL/HDL (test code = 2.82 RATIO 2238) RHEUMATOID FACTOR, [id number] 00:00:00 Test Item Value Reference Range Interpretation Comments RHEUMATOID FACTOR, QUANT (test code <10 IU/ML = 3502) RHEUMATOID FACTOR, [id number] 00:00:00 Test Item Value Reference Range Interpretation Comments RHEUMATOID FACTOR, QUANT (test code <10 IU/ML = 3502) MANSOOR (ANTI-NUCLEAR AB) WITH REFLEX [id number] 00:00:00 Test Item Value Reference Range Interpretation Comments ANTI-NUCLEAR ANTIBODIES (test code = NEGATIVE 3506) CCP [id number] 00:00:00 Test Item Value Reference Range Interpretation Comments CCP IgG (test code = 56566) <0.5 U/ML CCP [id number] 00:00:00 Test Item Value Reference Range Interpretation Comments CCP IgG (test code = 43614) <0.5 U/ML CBC W/AUTO [id number] 00:00:00 Test Item Value Reference Range Interpretation [...] code = 1015) 192 K/UL CBC W/AUTO [id number] 00:00:00 Test Item Value Reference Range Interpretation [...] COUNT (test code = 1015) 192 K/UL [id number] 00:00:00 Test Item Value Reference Range Interpretation Comments TSH, THIRD GENERATION (test code 2.790 UIU/ML = 2821) [id number] 00:00:00 Test Item Value Reference Range Interpretation Comments TSH, THIRD GENERATION (test code 2.790 UIU/ML = 2821) COMPREHENSIVE METABOLIC [id number] 00:00:00 Test Item Value Reference Range Interpretation Comments GLUCOSE (test code = 2217) 113 MG/DL BUN (test code = 2208) 12 MG/DL CREATININE (test code = 2214) 0.64 MG/DL eGFR AMER. (test code 117 ML/MIN/1.73 = 34748) eGFR NON- AMER. (test 101 ML/MIN/1.73 code = 42522) CALC BUN/CREAT (test code = 19 RATIO [...] (test code = 2219) 29 U/L LIPID [id number] 00:00:00 Test Item Value Reference Range Interpretation Comments CHOLESTEROL (test code = 2210) 225 MG/DL TRIGLYCERIDES (test code = 2232) 196 MG/DL HDL CHOLESTEROL (test code = 2220) 50 MG/DL CALC LDL CHOL (test code = 2237) 141 MG/DL RISK RATIO LDL/HDL (test code = 2.82 RATIO 2238) RHEUMATOID FACTOR, [id number] 00:00:00 Test Item Value Reference Range Interpretation Comments RHEUMATOID FACTOR, QUANT (test code <10 IU/ML = 3502) RHEUMATOID FACTOR, [id number] 00:00:00 Test Item Value Reference Range Interpretation Comments RHEUMATOID FACTOR, QUANT (test code <10 IU/ML = 3502) MANSOOR (ANTI-NUCLEAR AB) WITH REFLEX [id number] 00:00:00 Test Item Value Reference Range Interpretation Comments ANTI-NUCLEAR ANTIBODIES (test code = NEGATIVE 3506) CCP [id number] 00:00:00 Test Item Value Reference Range Interpretation Comments CCP IgG (test code = 48769) <0.5 U/ML CCP [id number] 00:00:00 Test Item Value Reference Range Interpretation Comments CCP IgG (test code = 55522) <0.5 U/ML CBC W/AUTO [id number] 00:00:00 Test Item Value Reference Range Interpretation [...] code = 1015) 192 K/UL CBC W/AUTO [id number] 00:00:00 Test Item Value Reference Range Interpretation [...] COUNT (test code = 1015) 192 K/UL [id number] 00:00:00 Test Item Value Reference Range Interpretation Comments TSH, THIRD GENERATION (test code 2.790 UIU/ML = 2821) [id number] 00:00:00 Test Item Value Reference Range Interpretation Comments TSH, THIRD GENERATION (test code 2.790 UIU/ML = 2821) COMPREHENSIVE METABOLIC [id number] 00:00:00 Test Item Value Reference Range Interpretation Comments GLUCOSE (test code = 2217) 113 MG/DL BUN (test code = 2208) 12 MG/DL CREATININE (test code = 2214) 0.64 MG/DL eGFR AMER. (test code 117 ML/MIN/1.73 = 00615) eGFR NON- AMER. (test 101 ML/MIN/1.73 code = 42220) CALC BUN/CREAT (test code = 19 RATIO [...] (test code = 2219) 29 U/L LIPID [id number] 00:00:00 Test Item Value Reference Range Interpretation Comments CHOLESTEROL (test code = 2210) 225 MG/DL TRIGLYCERIDES (test code = 2232) 196 MG/DL HDL CHOLESTEROL (test code = 2220) 50 MG/DL CALC LDL CHOL (test code = 2237) 141 MG/DL RISK RATIO LDL/HDL (test code = 2.82 RATIO 2238) RHEUMATOID FACTOR, [id number] 00:00:00 Test Item Value Reference Range Interpretation Comments RHEUMATOID FACTOR, QUANT (test code <10 IU/ML = 3502) RHEUMATOID FACTOR, [id number] 00:00:00 Test Item Value Reference Range Interpretation Comments RHEUMATOID FACTOR, QUANT (test code <10 IU/ML = 3502) MANSOOR (ANTI-NUCLEAR AB) WITH REFLEX [id number] 00:00:00 Test Item Value Reference Range Interpretation Comments ANTI-NUCLEAR ANTIBODIES (test code = NEGATIVE 3506) CCP [id number] 00:00:00 Test Item Value Reference Range Interpretation Comments CCP IgG (test code = 51226) <0.5 U/ML CCP [id number] 00:00:00 Test Item Value Reference Range Interpretation Comments CCP IgG (test code = 38015) <0.5 U/ML CBC W/AUTO [id number] 00:00:00 Test Item Value Reference Range Interpretation [...] code = 1015) 192 K/UL CBC W/AUTO [id number] 00:00:00 Test Item Value Reference Range Interpretation [...] COUNT (test code = 1015) 192 K/UL [id number] 00:00:00 Test Item Value Reference Range Interpretation Comments TSH, THIRD GENERATION (test code 2.790 UIU/ML = 2821) [id number] 00:00:00 Test Item Value Reference Range Interpretation Comments TSH, THIRD GENERATION (test code 2.790 UIU/ML = 2821) COMPREHENSIVE METABOLIC [id number] 00:00:00 Test Item Value Reference Range Interpretation Comments GLUCOSE (test code = 2217) 113 MG/DL BUN (test code = 2208) 12 MG/DL CREATININE (test code = 2214) 0.64 MG/DL eGFR AMER. (test code 117 ML/MIN/1.73 = 55700) eGFR NON- AMER. (test 101 ML/MIN/1.73 code = 54138) CALC BUN/CREAT (test code = 19 RATIO [...] code = 2219) 29 U/L COMPREHENSIVE METABOLIC [id number] 00:00:00 Test Item Value Reference Range Interpretation Comments GLUCOSE (test code = 2217) 113 MG/DL BUN (test code = 2208) 12 MG/DL CREATININE (test code = 2214) 0.64 MG/DL eGFR AMER. (test code 117 ML/MIN/1.73 = 55204) eGFR NON- AMER. (test 101 ML/MIN/1.73 code = 29702) CALC BUN/CREAT (test code = 19 RATIO [...] (test code = 2219) 29 U/L LIPID [id number] 00:00:00 Test Item Value Reference Range Interpretation Comments CHOLESTEROL (test code = 2210) 225 MG/DL TRIGLYCERIDES (test code = 2232) 196 MG/DL HDL CHOLESTEROL (test code = 2220) 50 MG/DL CALC LDL CHOL (test code = 2237) 141 MG/DL RISK RATIO LDL/HDL (test code = 2.82 RATIO 2238) LIPID [id number] 00:00:00 Test Item Value Reference Range Interpretation Comments CHOLESTEROL (test code = 2210) 225 MG/DL TRIGLYCERIDES (test code = 2232) 196 MG/DL HDL CHOLESTEROL (test code = 2220) 50 MG/DL CALC LDL CHOL (test code = 2237) 141 MG/DL RISK RATIO LDL/HDL (test code = 2.82 RATIO 2238) CULTURE, [id number] 00:00:00 Test Item Value Reference Range Interpretation Comments CULTURE, THROAT (test SPECIMEN NUMBER: code = 32703) [id number] CULTURE, [id number] 00:00:00 Test Item Value Reference Range Interpretation Comments CULTURE, THROAT (test SPECIMEN NUMBER: code = 17407) [id number] CULTURE, [id number] 00:00:00 Test Item Value Reference Range Interpretation Comments CULTURE, THROAT (test SPECIMEN NUMBER: code = 81606) [id number] CULTURE, [id number] 00:00:00 Test Item Value Reference Range Interpretation Comments CULTURE, THROAT (test SPECIMEN NUMBER: code = 06431) [id number] CULTURE, [id number] 00:00:00 Test Item Value Reference Range Interpretation Comments CULTURE, THROAT (test SPECIMEN NUMBER: code = 92898) [id number] CULTURE, [id number] 00:00:00 Test Item Value Reference Range Interpretation Comments CULTURE, THROAT (test SPECIMEN NUMBER: code = 13819) [id number] CULTURE, [id number] 00:00:00 Test Item Value Reference Range Interpretation Comments CULTURE, THROAT (test SPECIMEN NUMBER: code = 00696) [id number] CULTURE, [id number] 00:00:00 Test Item Value Reference Range Interpretation Comments CULTURE, THROAT (test SPECIMEN NUMBER: code = 24389) [id number] CULTURE, [id number] 00:00:00 Test Item Value Reference Range Interpretation Comments CULTURE, THROAT (test SPECIMEN NUMBER: code = 27232) [id number] SARS-CoV-2 (COVID-19) by RT-PCR (HIGH RISK)2019-12-29 00:00:00 Test Item Value Reference Range Interpretation Comments SARS-CoV-2 INTERPRETATION (test NEGATIVE code = 68433) SOURCE (test code = 61653) NOT SPECIFIED SARS-CoV-2 (COVID-19) by RT-PCR (HIGH RISK)2019-12-29 00:00:00 Test Item Value Reference Range Interpretation Comments SARS-CoV-2 INTERPRETATION (test NEGATIVE code = 57890) SOURCE (test code = 06100) NOT SPECIFIED SARS-CoV-2 (COVID-19) by RT-PCR (HIGH RISK)2019-12-29 00:00:00 Test Item Value Reference Range Interpretation Comments SARS-CoV-2 INTERPRETATION (test NEGATIVE code = 78491) SOURCE (test code = 43924) NOT SPECIFIED SARS-CoV-2 (COVID-19) by RT-PCR (HIGH RISK)2019-12-29 00:00:00 Test Item Value Reference Range Interpretation Comments SARS-CoV-2 INTERPRETATION (test NEGATIVE code = 74770) SOURCE (test code = 47544) NOT SPECIFIED SARS-CoV-2 (COVID-19) by RT-PCR (HIGH RISK)2019-12-29 00:00:00 Test Item Value Reference Range Interpretation Comments SARS-CoV-2 INTERPRETATION (test NEGATIVE code = 16151) SOURCE (test code = 59172) NOT SPECIFIED SARS-CoV-2 (COVID-19) by RT-PCR (HIGH RISK)2019-12-29 00:00:00 Test Item Value Reference Range Interpretation Comments SARS-CoV-2 INTERPRETATION (test NEGATIVE code = 26345) SOURCE (test code = 11174) NOT SPECIFIED SARS-CoV-2 (COVID-19) by RT-PCR (HIGH RISK)2019-12-29 00:00:00 Test Item Value Reference Range Interpretation Comments SARS-CoV-2 INTERPRETATION (test NEGATIVE code = 04863) SOURCE (test code = 51866) NOT SPECIFIED SARS-CoV-2 (COVID-19) by RT-PCR (HIGH RISK)2019-12-29 00:00:00 Test Item Value Reference Range Interpretation Comments SARS-CoV-2 INTERPRETATION (test NEGATIVE code = 60522) SOURCE (test code = 37816) NOT SPECIFIED SARS-CoV-2 (COVID-19) by RT-PCR (HIGH RISK)2019-12-29 00:00:00 Test Item Value Reference Range Interpretation Comments SARS-CoV-2 INTERPRETATION (test NEGATIVE code = 46067) SOURCE (test code = 77615) NOT SPECIFIED SARS-CoV-2 (COVID-19) by RT-PCR (HIGH RISK)2019-12-07 00:00:00 Test Item Value Reference Range Interpretation Comments SARS-CoV-2 INTERPRETATION (test NEGATIVE code = 35911) SOURCE (test code = 67113) NOT SPECIFIED SARS-CoV-2 (COVID-19) by RT-PCR (HIGH RISK)2019-12-07 00:00:00 Test Item Value Reference Range Interpretation Comments SARS-CoV-2 INTERPRETATION (test NEGATIVE code = 18947) SOURCE (test code = 38984) NOT SPECIFIED SARS-CoV-2 (COVID-19) by RT-PCR (HIGH RISK)2019-12-07 00:00:00 Test Item Value Reference Range Interpretation Comments SARS-CoV-2 INTERPRETATION (test NEGATIVE code = 74482) SOURCE (test code = 49088) NOT SPECIFIED SARS-CoV-2 (COVID-19) by RT-PCR (HIGH RISK)2019-12-07 00:00:00 Test Item Value Reference Range Interpretation Comments SARS-CoV-2 INTERPRETATION (test NEGATIVE code = 57843) SOURCE (test code = 21871) NOT SPECIFIED SARS-CoV-2 (COVID-19) by RT-PCR (HIGH RISK)2019-12-07 00:00:00 Test Item Value Reference Range Interpretation Comments SARS-CoV-2 INTERPRETATION (test NEGATIVE code = 30488) SOURCE (test code = 47012) NOT SPECIFIED SARS-CoV-2 (COVID-19) by RT-PCR (HIGH RISK)2019-12-07 00:00:00 Test Item Value Reference Range Interpretation Comments SARS-CoV-2 INTERPRETATION (test NEGATIVE code = 37355) SOURCE (test code = 82436) NOT SPECIFIED SARS-CoV-2 (COVID-19) by RT-PCR (HIGH RISK)2019-12-07 00:00:00 Test Item Value Reference Range Interpretation Comments SARS-CoV-2 INTERPRETATION (test NEGATIVE code = 21026) SOURCE (test code = 22989) NOT SPECIFIED SARS-CoV-2 (COVID-19) by RT-PCR (HIGH RISK)2019-12-07 00:00:00 Test Item Value Reference Range Interpretation Comments SARS-CoV-2 INTERPRETATION (test NEGATIVE code = 98610) SOURCE (test code = 23681) NOT SPECIFIED SARS-CoV-2 (COVID-19) by RT-PCR (HIGH RISK)2019-12-07 00:00:00 Test Item Value Reference Range Interpretation Comments SARS-CoV-2 INTERPRETATION (test NEGATIVE code = 17715) SOURCE (test code = 64912) NOT SPECIFIED SARS-COV-2(COVID19),HIGHRISK,RT-PCR [ADDED]2019-09-12 00:00:00 Test Item Value Reference Range Interpretation Comments SARS-CoV-2 INTERPRETATION NEGATIVE (test code = 57805) SOURCE (test code = 96888) NASOPHARYNGEAL SARS-COV-2(COVID19),HIGHRISK,RT-PCR [ADDED]2019-09-12 00:00:00 Test Item Value Reference Range Interpretation Comments SARS-CoV-2 INTERPRETATION NEGATIVE (test code = 86101) SOURCE (test code = 73792) NASOPHARYNGEAL SARS-COV-2(COVID19),HIGHRISK,RT-PCR [ADDED]2019-09-12 00:00:00 Test Item Value Reference Range Interpretation Comments SARS-CoV-2 INTERPRETATION NEGATIVE (test code = 89788) SOURCE (test code = 09235) NASOPHARYNGEAL SARS-COV-2(COVID19),HIGHRISK,RT-PCR [ADDED]2019-09-12 00:00:00 Test Item Value Reference Range Interpretation Comments SARS-CoV-2 INTERPRETATION NEGATIVE (test code = 44297) SOURCE (test code = 88000) NASOPHARYNGEAL SARS-COV-2(COVID19),HIGHRISK,RT-PCR [ADDED]2019-09-12 00:00:00 Test Item Value Reference Range Interpretation Comments SARS-CoV-2 INTERPRETATION NEGATIVE (test code = 10065) SOURCE (test code = 70073) NASOPHARYNGEAL SARS-COV-2(COVID19),HIGHRISK,RT-PCR [ADDED]2019-09-12 00:00:00 Test Item Value Reference Range Interpretation Comments SARS-CoV-2 INTERPRETATION NEGATIVE (test code = 18779) SOURCE (test code = 85906) NASOPHARYNGEAL SARS-COV-2(COVID19),HIGHRISK,RT-PCR [ADDED]2019-09-12 00:00:00 Test Item Value Reference Range Interpretation Comments SARS-CoV-2 INTERPRETATION NEGATIVE (test code = 79621) SOURCE (test code = 38088) NASOPHARYNGEAL SARS-COV-2(COVID19),HIGHRISK,RT-PCR [ADDED]2019-09-12 00:00:00 Test Item Value Reference Range Interpretation Comments SARS-CoV-2 INTERPRETATION NEGATIVE (test code = 67815) SOURCE (test code = 45814) NASOPHARYNGEAL SARS-COV-2(COVID19),HIGHRISK,RT-PCR [ADDED]2019-09-12 00:00:00 Test Item Value Reference Range Interpretation Comments SARS-CoV-2 INTERPRETATION NEGATIVE (test code = 71942) SOURCE (test code = 16563) NASOPHARYNGEAL CBC W/AUTO [id number] 00:00:00 Test Item Value Reference Range Interpretation [...] code = 1015) 225 K/UL CBC W/AUTO [id number] 00:00:00 Test Item Value Reference Range Interpretation [...] code = 1015) 225 K/UL CBC W/AUTO [id number] 00:00:00 Test Item Value Reference Range Interpretation [...] code = 1015) 225 K/UL CBC W/AUTO [id number] 00:00:00 Test Item Value Reference Range Interpretation [...] code = 1015) 225 K/UL CBC W/AUTO [id number] 00:00:00 Test Item Value Reference Range Interpretation [...] code = 1015) 225 K/UL CBC W/AUTO [id number] 00:00:00 Test Item Value Reference Range Interpretation [...] code = 1015) 225 K/UL CBC W/AUTO [id number] 00:00:00 Test Item Value Reference Range Interpretation [...] code = 1015) 225 K/UL CBC W/AUTO [id number] 00:00:00 Test Item Value Reference Range Interpretation [...] code = 1015) 225 K/UL CBC W/AUTO [id number] 00:00:00 Test Item Value Reference Range Interpretation [...] code = 1015) 225 K/UL CBC W/AUTO [id number] 00:00:00 Test Item Value Reference Range Interpretation [...] code = 1015) 225 K/UL CBC W/AUTO [id number] 00:00:00 Test Item Value Reference Range Interpretation [...] code = 1015) 225 K/UL CBC W/AUTO [id number] 00:00:00 Test Item Value Reference Range Interpretation [...] code = 1015) 225 K/UL CBC W/AUTO [id number] 00:00:00 Test Item Value Reference Range Interpretation [...] code = 1015) 225 K/UL CBC W/AUTO [id number] 00:00:00 Test Item Value Reference Range Interpretation [...] code = 1015) 225 K/UL CBC W/AUTO [id number] 00:00:00 Test Item Value Reference Range Interpretation [...] COUNT (test code = 1015) 225 K/UL [id number] 00:00:00 Test Item Value Reference Range Interpretation Comments AMYLASE (test code = 2205) 78 U/L [id number] 00:00:00 Test Item Value Reference Range Interpretation Comments AMYLASE (test code = 2205) 78 U/L [id number] 00:00:00 Test Item Value Reference Range Interpretation Comments LIPASE (test code = 2057) 39 U/L [id number] 00:00:00 Test Item Value Reference Range Interpretation Comments LIPASE (test code = 2057) 39 U/L [id number] 00:00:00 Test Item Value Reference Range Interpretation Comments LIPASE (test code = 2057) 39 U/L CBC W/AUTO [id number] 00:00:00 Test Item Value Reference Range Interpretation [...] code = 1015) 218 K/UL CBC W/AUTO [id number] 00:00:00 Test Item Value Reference Range Interpretation [...] code = 1015) 218 K/UL CBC W/AUTO [id number] 00:00:00 Test Item Value Reference Range Interpretation [...] code = 1015) 218 K/UL COMPREHENSIVE METABOLIC [id number] 00:00:00 Test Item Value Reference Range Interpretation Comments GLUCOSE (test code = 2217) 81 MG/DL BUN (test code = 2208) 12 MG/DL CREATININE (test code = 2214) 0.49 MG/DL eGFR AMER. (test code 131 ML/MIN/1.73 = 19525) eGFR NON- AMER. (test 113 ML/MIN/1.73 code = 70212) CALC BUN/CREAT (test code = 24 RATIO [...] code = 2219) 26 U/L COMPREHENSIVE METABOLIC [id number] 00:00:00 Test Item Value Reference Range Interpretation Comments GLUCOSE (test code = 2217) 81 MG/DL BUN (test code = 2208) 12 MG/DL CREATININE (test code = 2214) 0.49 MG/DL eGFR AMER. (test code 131 ML/MIN/1.73 = 74177) eGFR NON- AMER. (test 113 ML/MIN/1.73 code = 36468) CALC BUN/CREAT (test code = 24 RATIO [...] ALT (test code = 2219) 26 U/L [id number] 00:00:00 Test Item Value Reference Range Interpretation Comments AMYLASE (test code = 2205) 78 U/L [id number] 00:00:00 Test Item Value Reference Range Interpretation Comments AMYLASE (test code = 2205) 78 U/L [id number] 00:00:00 Test Item Value Reference Range Interpretation Comments LIPASE (test code = 205) 39 U/L [id number] 00:00:00 Test Item Value Reference Range Interpretation Comments LIPASE (test code = 2057) 39 U/L [id number] 00:00:00 Test Item Value Reference Range Interpretation Comments LIPASE (test code = 2057) 39 U/L CBC W/AUTO [id number] 00:00:00 Test Item Value Reference Range Interpretation [...] code = 1015) 218 K/UL CBC W/AUTO [id number] 00:00:00 Test Item Value Reference Range Interpretation [...] code = 1015) 218 K/UL CBC W/AUTO [id number] 00:00:00 Test Item Value Reference Range Interpretation [...] code = 1015) 218 K/UL CBC W/AUTO [id number] 00:00:00 Test Item Value Reference Range Interpretation [...] code = 1015) 218 K/UL CBC W/AUTO [id number] 00:00:00 Test Item Value Reference Range Interpretation [...] code = 1015) 218 K/UL COMPREHENSIVE METABOLIC [id number] 00:00:00 Test Item Value Reference Range Interpretation Comments GLUCOSE (test code = 2217) 81 MG/DL BUN (test code = 2208) 12 MG/DL CREATININE (test code = 2214) 0.49 MG/DL eGFR AMER. (test code 131 ML/MIN/1.73 = 32992) eGFR NON- AMER. (test 113 ML/MIN/1.73 code = 03437) CALC BUN/CREAT (test code = 24 RATIO [...] code = 2219) 26 U/L COMPREHENSIVE METABOLIC [id number] 00:00:00 Test Item Value Reference Range Interpretation Comments GLUCOSE (test code = 2217) 81 MG/DL BUN (test code = 2208) 12 MG/DL CREATININE (test code = 2214) 0.49 MG/DL eGFR AMER. (test code 131 ML/MIN/1.73 = 15535) eGFR NON- AMER. (test 113 ML/MIN/1.73 code = 65410) CALC BUN/CREAT (test code = 24 RATIO [...] ALT (test code = 2219) 26 U/L [id number] 00:00:00 Test Item Value Reference Range Interpretation Comments AMYLASE (test code = 2205) 78 U/L [id number] 00:00:00 Test Item Value Reference Range Interpretation Comments AMYLASE (test code = 2205) 78 U/L [id number] 00:00:00 Test Item Value Reference Range Interpretation Comments LIPASE (test code = 205) 39 U/L COMPREHENSIVE METABOLIC [id number] 00:00:00 Test Item Value Reference Range Interpretation Comments GLUCOSE (test code = 2217) 81 MG/DL BUN (test code = 2208) 12 MG/DL CREATININE (test code = 2214) 0.49 MG/DL eGFR AMER. (test code 131 ML/MIN/1.73 = 89054) eGFR NON- AMER. (test 113 ML/MIN/1.73 code = 35338) CALC BUN/CREAT (test code = 24 RATIO [...] ALT (test code = 2219) 26 U/L [id number] 00:00:00 Test Item Value Reference Range Interpretation Comments LIPASE (test code = 2057) 39 U/L [id number] 00:00:00 Test Item Value Reference Range Interpretation Comments LIPASE (test code = 2057) 39 U/L [id number] 00:00:00 Test Item Value Reference Range Interpretation Comments AMYLASE (test code = 2204) 78 U/L [id number] 00:00:00 Test Item Value Reference Range Interpretation Comments LIPASE (test code = 2057) 39 U/L [id number] 00:00:00 Test Item Value Reference Range Interpretation Comments LIPASE (test code = 2057) 39 U/L CBC W/AUTO [id number] 00:00:00 Test Item Value Reference Range Interpretation [...] code = 1015) 218 K/UL CBC W/AUTO [id number] 00:00:00 Test Item Value Reference Range Interpretation [...] code = 1015) 218 K/UL COMPREHENSIVE METABOLIC [id number] 00:00:00 Test Item Value Reference Range Interpretation Comments GLUCOSE (test code = 2217) 81 MG/DL BUN (test code = 2208) 12 MG/DL CREATININE (test code = 2214) 0.49 MG/DL eGFR AMER. (test code 131 ML/MIN/1.73 = 05426) eGFR NON- AMER. (test 113 ML/MIN/1.73 code = 19141) CALC BUN/CREAT (test code = 24 RATIO [...] ALT (test code = 2219) 26 U/L [id number] 00:00:00 Test Item Value Reference Range Interpretation Comments AMYLASE (test code = 2205) 78 U/L [id number] 00:00:00 Test Item Value Reference Range Interpretation Comments LIPASE (test code = 2057) 39 U/L [id number] 00:00:00 Test Item Value Reference Range Interpretation Comments LIPASE (test code = 2057) 39 U/L CBC W/AUTO [id number] 00:00:00 Test Item Value Reference Range Interpretation [...] code = 1015) 218 K/UL CBC W/AUTO [id number] 00:00:00 Test Item Value Reference Range Interpretation [...] code = 1015) 218 K/UL COMPREHENSIVE METABOLIC [id number] 00:00:00 Test Item Value Reference Range Interpretation Comments GLUCOSE (test code = 2217) 81 MG/DL BUN (test code = 2208) 12 MG/DL CREATININE (test code = 2214) 0.49 MG/DL eGFR AMER. (test code 131 ML/MIN/1.73 = 24395) eGFR NON- AMER. (test 113 ML/MIN/1.73 code = 41075) CALC BUN/CREAT (test code = 24 RATIO [...] ALKALINE PHOSPHATASE (test 92 U/L code = 220) AST (test code = 2218) 20 U/L ALT (test code = 221) 26 U/L [id number] 00:00:00 Test Item Value Reference Range Interpretation Comments AMYLASE (test code = 5) 78 U/L [id number] 00:00:00 Test Item Value Reference Range Interpretation Comments LIPASE (test code = 2057) 39 U/L [id number] 00:00:00 Test Item Value Reference Range Interpretation Comments LIPASE (test code = 2057) 39 U/L CBC W/AUTO [id number] 00:00:00 Test Item Value Reference Range Interpretation [...] code = 1015) 218 K/UL CBC W/AUTO [id number] 00:00:00 Test Item Value Reference Range Interpretation [...] code = 1015) 218 K/UL CBC W/AUTO [id number] 00:00:00 Test Item Value Reference Range Interpretation [...] code = 1015) 218 K/UL COMPREHENSIVE METABOLIC [id number] 00:00:00 Test Item Value Reference Range Interpretation Comments GLUCOSE (test code = 2217) 81 MG/DL BUN (test code = 2208) 12 MG/DL CREATININE (test code = 2214) 0.49 MG/DL eGFR AMER. (test code 131 ML/MIN/1.73 = 36334) eGFR NON- AMER. (test 113 ML/MIN/1.73 code = 21646) CALC BUN/CREAT (test code = 24 RATIO [...] code = 2219) 26 U/L COMPREHENSIVE METABOLIC [id number] 00:00:00 Test Item Value Reference Range Interpretation Comments GLUCOSE (test code = 2217) 81 MG/DL BUN (test code = 2208) 12 MG/DL CREATININE (test code = 2214) 0.49 MG/DL eGFR AMER. (test code 131 ML/MIN/1.73 = 94723) eGFR NON- AMER. (test 113 ML/MIN/1.73 code = 72928) CALC BUN/CREAT (test code = 24 RATIO [...] (test code = 2219) 26 U/L LIPID [id number] 00:00:00 Test Item Value Reference Range Interpretation Comments CHOLESTEROL (test code = 2210) 219 MG/DL TRIGLYCERIDES (test code = 2232) 151 MG/DL HDL CHOLESTEROL (test code = 2220) 55 MG/DL CALC LDL CHOL (test code = 2237) 134 MG/DL RISK RATIO LDL/HDL (test code = 2.43 RATIO 2238) LIPID [id number] 00:00:00 Test Item Value Reference Range Interpretation [...] (test code = 2821) 2.46 UIU/ML HEMOGLOBIN [id number] 00:00:00 Test Item Value Reference Range Interpretation Comments HEMOGLOBIN A1c (test code = 31786) 5.4 % HEMOGLOBIN [id number] 00:00:00 Test Item Value Reference Range Interpretation Comments HEMOGLOBIN A1c (test code = 61738) 5.4 % HEMOGLOBIN [id number] 00:00:00 Test Item Value Reference Range Interpretation Comments HEMOGLOBIN A1c (test code = 74017) 5.4 % CBC W/AUTO [id number] 00:00:00 Test Item Value Reference Range Interpretation [...] code = 1015) 229 K/UL CBC W/AUTO [id number] 00:00:00 Test Item Value Reference Range Interpretation [...] code = 1015) 229 K/UL CBC W/AUTO [id number] 00:00:00 Test Item Value Reference Range Interpretation [...] code = 1015) 229 K/UL COMPREHENSIVE METABOLIC [id number] 00:00:00 Test Item Value Reference Range Interpretation Comments GLUCOSE (test code = 2217) 91 MG/DL BUN (test code = 2208) 9 MG/DL CREATININE (test code = 2214) 0.52 MG/DL eGFR AMER. (test code 129 ML/MIN/1.73 = 88731) eGFR NON- AMER. (test 111 ML/MIN/1.73 code = 57185) CALC BUN/CREAT (test code = 17 RATIO [...] code = 2219) 21 U/L COMPREHENSIVE METABOLIC [id number] 00:00:00 Test Item Value Reference Range Interpretation Comments GLUCOSE (test code = 2217) 91 MG/DL BUN (test code = 2208) 9 MG/DL CREATININE (test code = 2214) 0.52 MG/DL eGFR AMER. (test code 129 ML/MIN/1.73 = 40213) eGFR NON- AMER. (test 111 ML/MIN/1.73 code = 07955) CALC BUN/CREAT (test code = 17 RATIO [...] (test code = 2219) 21 U/L LIPID [id number] 00:00:00 Test Item Value Reference Range Interpretation Comments CHOLESTEROL (test code = 2210) 219 MG/DL TRIGLYCERIDES (test code = 2232) 151 MG/DL HDL CHOLESTEROL (test code = 2220) 55 MG/DL CALC LDL CHOL (test code = 2237) 134 MG/DL RISK RATIO LDL/HDL (test code = 2.43 RATIO 2238) LIPID [id number] 00:00:00 Test Item Value Reference Range Interpretation [...] (test code = 2821) 2.46 UIU/ML HEMOGLOBIN [id number] 00:00:00 Test Item Value Reference Range Interpretation Comments HEMOGLOBIN A1c (test code = 97529) 5.4 % HEMOGLOBIN [id number] 00:00:00 Test Item Value Reference Range Interpretation Comments HEMOGLOBIN A1c (test code = 00049) 5.4 % HEMOGLOBIN [id number] 00:00:00 Test Item Value Reference Range Interpretation Comments HEMOGLOBIN A1c (test code = 23302) 5.4 % HEMOGLOBIN [id number] 00:00:00 Test Item Value Reference Range Interpretation Comments HEMOGLOBIN A1c (test code = 70147) 5.4 % CBC W/AUTO [id number] 00:00:00 Test Item Value Reference Range Interpretation [...] code = 1015) 229 K/UL CBC W/AUTO [id number] 00:00:00 Test Item Value Reference Range Interpretation [...] code = 1015) 229 K/UL CBC W/AUTO [id number] 00:00:00 Test Item Value Reference Range Interpretation [...] (test code = 1015) 229 K/UL HEMOGLOBIN [id number] 00:00:00 Test Item Value Reference Range Interpretation Comments HEMOGLOBIN A1c (test code = 33228) 5.4 % COMPREHENSIVE METABOLIC [id number] 00:00:00 Test Item Value Reference Range Interpretation Comments GLUCOSE (test code = 2217) 91 MG/DL BUN (test code = 2208) 9 MG/DL CREATININE (test code = 2214) 0.52 MG/DL eGFR AMER. (test code 129 ML/MIN/1.73 = 24006) eGFR NON- AMER. (test 111 ML/MIN/1.73 code = 35536) CALC BUN/CREAT (test code = 17 RATIO [...] code = 2219) 21 U/L COMPREHENSIVE METABOLIC [id number] 00:00:00 Test Item Value Reference Range Interpretation Comments GLUCOSE (test code = 2217) 91 MG/DL BUN (test code = 2208) 9 MG/DL CREATININE (test code = 2214) 0.52 MG/DL eGFR AMER. (test code 129 ML/MIN/1.73 = 63680) eGFR NON- AMER. (test 111 ML/MIN/1.73 code = 05533) CALC BUN/CREAT (test code = 17 RATIO [...] (test code = 2219) 21 U/L LIPID [id number] 00:00:00 Test Item Value Reference Range Interpretation Comments CHOLESTEROL (test code = 2210) 219 MG/DL TRIGLYCERIDES (test code = 2232) 151 MG/DL HDL CHOLESTEROL (test code = 2220) 55 MG/DL CALC LDL CHOL (test code = 2237) 134 MG/DL RISK RATIO LDL/HDL (test code = 2.43 RATIO 2238) LIPID [id number] 00:00:00 Test Item Value Reference Range Interpretation [...] code = 2821) 2.46 UIU/ML CBC W/AUTO [id number] 00:00:00 Test Item Value Reference Range Interpretation [...] code = 1015) 229 K/UL CBC W/AUTO [id number] 00:00:00 Test Item Value Reference Range Interpretation [...] code = 1015) 229 K/UL COMPREHENSIVE METABOLIC [id number] 00:00:00 Test Item Value Reference Range Interpretation Comments GLUCOSE (test code = 2217) 91 MG/DL BUN (test code = 2208) 9 MG/DL CREATININE (test code = 2214) 0.52 MG/DL eGFR AMER. (test code 129 ML/MIN/1.73 = 78226) eGFR NON- AMER. (test 111 ML/MIN/1.73 code = 07716) CALC BUN/CREAT (test code = 17 RATIO [...] (test code = 2219) 21 U/L LIPID [id number] 00:00:00 Test Item Value Reference Range Interpretation [...] (test code = 2821) 2.46 UIU/ML HEMOGLOBIN [id number] 00:00:00 Test Item Value Reference Range Interpretation Comments HEMOGLOBIN A1c (test code = 17366) 5.4 % HEMOGLOBIN [id number] 00:00:00 Test Item Value Reference Range Interpretation Comments HEMOGLOBIN A1c (test code = 16235) 5.4 % CBC W/AUTO [id number] 00:00:00 Test Item Value Reference Range Interpretation [...] code = 1015) 229 K/UL CBC W/AUTO [id number] 00:00:00 Test Item Value Reference Range Interpretation [...] code = 1015) 229 K/UL COMPREHENSIVE METABOLIC [id number] 00:00:00 Test Item Value Reference Range Interpretation Comments GLUCOSE (test code = 2217) 91 MG/DL BUN (test code = 2208) 9 MG/DL CREATININE (test code = 2214) 0.52 MG/DL eGFR AMER. (test code 129 ML/MIN/1.73 = 30407) eGFR NON- AMER. (test 111 ML/MIN/1.73 code = 83294) CALC BUN/CREAT (test code = 17 RATIO [...] (test code = 2219) 21 U/L LIPID [id number] 00:00:00 Test Item Value Reference Range Interpretation [...] CALCULATED T7 (FTI) (test code = 1.65 330) TSH (test code = 2821) 2.46 UIU/ML HEMOGLOBIN [id number] 00:00:00 Test Item Value Reference Range Interpretation Comments HEMOGLOBIN A1c (test code = 18475) 5.4 % HEMOGLOBIN [id number] 00:00:00 Test Item Value Reference Range Interpretation Comments HEMOGLOBIN A1c (test code = 71619) 5.4 % CBC W/AUTO [id number] 00:00:00 Test Item Value Reference Range Interpretation [...] code = 1015) 229 K/UL CBC W/AUTO [id number] 00:00:00 Test Item Value Reference Range Interpretation [...] code = 1015) 229 K/UL COMPREHENSIVE METABOLIC [id number] 00:00:00 Test Item Value Reference Range Interpretation Comments GLUCOSE (test code = 2217) 91 MG/DL BUN (test code = 2208) 9 MG/DL CREATININE (test code = 2214) 0.52 MG/DL eGFR AMER. (test code 129 ML/MIN/1.73 = 69691) eGFR NON- AMER. (test 111 ML/MIN/1.73 code = 78168) CALC BUN/CREAT (test code = 17 RATIO [...] (test code = 2219) 21 U/L LIPID [id number] 00:00:00 Test Item Value Reference Range Interpretation [...] (test code = 2821) 2.46 UIU/ML HEMOGLOBIN [id number] 00:00:00 Test Item Value Reference Range Interpretation Comments HEMOGLOBIN A1c (test code = 28020) 5.4 % HEMOGLOBIN [id number] 00:00:00 Test Item Value Reference Range Interpretation Comments HEMOGLOBIN A1c (test code = 97400) 5.4 % HEMOGLOBIN [id number] 00:00:00 Test Item Value Reference Range Interpretation Comments HEMOGLOBIN A1c (test code = 81068) 5.4 % CBC W/AUTO [id number] 00:00:00 Test Item Value Reference Range Interpretation [...] code = 1015) 229 K/UL CBC W/AUTO [id number] 00:00:00 Test Item Value Reference Range Interpretation [...] code = 1015) 229 K/UL CBC W/AUTO [id number] 00:00:00 Test Item Value Reference Range Interpretation [...] code = 1015) 229 K/UL COMPREHENSIVE METABOLIC [id number] 00:00:00 Test Item Value Reference Range Interpretation Comments GLUCOSE (test code = 2217) 91 MG/DL BUN (test code = 2208) 9 MG/DL CREATININE (test code = 2214) 0.52 MG/DL eGFR AMER. (test code 129 ML/MIN/1.73 = 76672) eGFR NON- AMER. (test 111 ML/MIN/1.73 code = 41872) CALC BUN/CREAT (test code = 17 RATIO [...] code = 2219) 21 U/L COMPREHENSIVE METABOLIC [id number] 00:00:00 Test Item Value Reference Range Interpretation Comments GLUCOSE (test code = 2217) 91 MG/DL BUN (test code = 2208) 9 MG/DL CREATININE (test code = 2214) 0.52 MG/DL eGFR AMER. (test code 129 ML/MIN/1.73 = 28052) eGFR NON- AMER. (test 111 ML/MIN/1.73 code = 85642) CALC BUN/CREAT (test code = 17 RATIO [...] code = 2219) 21 U/L COMPREHENSIVE METABOLIC [id number] 00:00:00 Test Item Value Reference Range Interpretation Comments GLUCOSE (test code = 2217) 87 MG/DL BUN (test code = 2208) 11 MG/DL CREATININE (test code = 2214) 0.58 MG/DL eGFR AMER. (test code 125 ML/MIN/1.73 = 13075) eGFR NON- AMER. (test 107 ML/MIN/1.73 code = 06690) CALCULATED BUN/CREAT (test 19 RATIO code = [...] code = 2219) 18 U/L COMPREHENSIVE METABOLIC [id number] 00:00:00 Test Item Value Reference Range Interpretation Comments GLUCOSE (test code = 2217) 87 MG/DL BUN (test code = 2208) 11 MG/DL CREATININE (test code = 2214) 0.58 MG/DL eGFR AMER. (test code 125 ML/MIN/1.73 = 03413) eGFR NON- AMER. (test 107 ML/MIN/1.73 code = 77070) CALCULATED BUN/CREAT (test 19 RATIO code = [...] (test code = 2219) 18 U/L LIPID [id number] 00:00:00 Test Item Value Reference Range Interpretation Comments CHOLESTEROL (test code = 2210) 210 MG/DL TRIGLYCERIDES (test code = 2232) 121 MG/DL HDL CHOLESTEROL (test code = 2220) 50 MG/DL CALCULATED LDL CHOL (test code = 136 MG/DL 2236) RISK RATIO LDL/HDL (test code = 2.72 RATIO 2238) LIPID [id number] 00:00:00 Test Item Value Reference Range Interpretation Comments CHOLESTEROL (test code = 2210) 210 MG/DL TRIGLYCERIDES (test code = 2232) 121 MG/DL HDL CHOLESTEROL (test code = 2220) 50 MG/DL CALCULATED LDL CHOL (test code = 136 MG/DL 2236) RISK RATIO LDL/HDL (test code = 2.72 RATIO 2238) COMPREHENSIVE METABOLIC [id number] 00:00:00 Test Item Value Reference Range Interpretation Comments GLUCOSE (test code = 2217) 87 MG/DL BUN (test code = 2208) 11 MG/DL CREATININE (test code = 2214) 0.58 MG/DL eGFR AMER. (test code 125 ML/MIN/1.73 = 60481) eGFR NON- AMER. (test 107 ML/MIN/1.73 code = 66390) CALCULATED BUN/CREAT (test 19 RATIO code = [...] code = 2219) 18 U/L COMPREHENSIVE METABOLIC [id number] 00:00:00 Test Item Value Reference Range Interpretation Comments GLUCOSE (test code = 2217) 87 MG/DL BUN (test code = 2208) 11 MG/DL CREATININE (test code = 2214) 0.58 MG/DL eGFR AMER. (test code 125 ML/MIN/1.73 = 29737) eGFR NON- AMER. (test 107 ML/MIN/1.73 code = 69840) CALCULATED BUN/CREAT (test 19 RATIO code = [...] code = 2219) 18 U/L COMPREHENSIVE METABOLIC [id number] 00:00:00 Test Item Value Reference Range Interpretation Comments GLUCOSE (test code = 2217) 87 MG/DL BUN (test code = 2208) 11 MG/DL CREATININE (test code = 2214) 0.58 MG/DL eGFR AMER. (test code 125 ML/MIN/1.73 = 98410) eGFR NON- AMER. (test 107 ML/MIN/1.73 code = 06882) CALCULATED BUN/CREAT (test 19 RATIO code = [...] (test code = 2219) 18 U/L LIPID [id number] 00:00:00 Test Item Value Reference Range Interpretation Comments CHOLESTEROL (test code = 2210) 210 MG/DL TRIGLYCERIDES (test code = 2232) 121 MG/DL HDL CHOLESTEROL (test code = 2220) 50 MG/DL CALCULATED LDL CHOL (test code = 136 MG/DL 2236) RISK RATIO LDL/HDL (test code = 2.72 RATIO 2238) LIPID [id number] 00:00:00 Test Item Value Reference Range Interpretation Comments CHOLESTEROL (test code = 2210) 210 MG/DL TRIGLYCERIDES (test code = 2232) 121 MG/DL HDL CHOLESTEROL (test code = 2220) 50 MG/DL CALCULATED LDL CHOL (test code = 136 MG/DL 2236) RISK RATIO LDL/HDL (test code = 2.72 RATIO 2238) LIPID [id number] 00:00:00 Test Item Value Reference Range Interpretation Comments CHOLESTEROL (test code = 2210) 210 MG/DL TRIGLYCERIDES (test code = 2232) 121 MG/DL HDL CHOLESTEROL (test code = 2220) 50 MG/DL CALCULATED LDL CHOL (test code = 136 MG/DL 2236) RISK RATIO LDL/HDL (test code = 2.72 RATIO 2238) COMPREHENSIVE METABOLIC [id number] 00:00:00 Test Item Value Reference Range Interpretation Comments GLUCOSE (test code = 2217) 87 MG/DL BUN (test code = 2208) 11 MG/DL CREATININE (test code = 2214) 0.58 MG/DL eGFR AMER. (test code 125 ML/MIN/1.73 = 09324) eGFR NON- AMER. (test 107 ML/MIN/1.73 code = 59583) CALCULATED BUN/CREAT (test 19 RATIO code = [...] (test code = 2219) 18 U/L LIPID [id number] 00:00:00 Test Item Value Reference Range Interpretation Comments CHOLESTEROL (test code = 2210) 210 MG/DL TRIGLYCERIDES (test code = 2232) 121 MG/DL HDL CHOLESTEROL (test code = 2220) 50 MG/DL CALCULATED LDL CHOL (test code = 136 MG/DL 2237) RISK RATIO LDL/HDL (test code = 2.72 RATIO 2238) COMPREHENSIVE METABOLIC [id number] 00:00:00 Test Item Value Reference Range Interpretation Comments GLUCOSE (test code = 2217) 87 MG/DL BUN (test code = 2208) 11 MG/DL CREATININE (test code = 2214) 0.58 MG/DL eGFR AMER. (test code 125 ML/MIN/1.73 = 16183) eGFR NON- AMER. (test 107 ML/MIN/1.73 code = 14195) CALCULATED BUN/CREAT (test 19 RATIO code = [...] (test code = 2219) 18 U/L LIPID [id number] 00:00:00 Test Item Value Reference Range Interpretation Comments CHOLESTEROL (test code = 2210) 210 MG/DL TRIGLYCERIDES (test code = 2232) 121 MG/DL HDL CHOLESTEROL (test code = 2220) 50 MG/DL CALCULATED LDL CHOL (test code = 136 MG/DL 2236) RISK RATIO LDL/HDL (test code = 2.72 RATIO 2238) COMPREHENSIVE METABOLIC [id number] 00:00:00 Test Item Value Reference Range Interpretation Comments GLUCOSE (test code = 2217) 87 MG/DL BUN (test code = 2208) 11 MG/DL CREATININE (test code = 2214) 0.58 MG/DL eGFR AMER. (test code 125 ML/MIN/1.73 = 68591) eGFR NON- AMER. (test 107 ML/MIN/1.73 code = 60529) CALCULATED BUN/CREAT (test 19 RATIO code = [...] code = 2219) 18 U/L COMPREHENSIVE METABOLIC [id number] 00:00:00 Test Item Value Reference Range Interpretation Comments GLUCOSE (test code = 2217) 87 MG/DL BUN (test code = 2208) 11 MG/DL CREATININE (test code = 2214) 0.58 MG/DL eGFR AMER. (test code 125 ML/MIN/1.73 = 98984) eGFR NON- AMER. (test 107 ML/MIN/1.73 code = 43482) CALCULATED BUN/CREAT (test 19 RATIO code = [...] (test code = 2219) 18 U/L LIPID [id number] 00:00:00 Test Item Value Reference Range Interpretation Comments CHOLESTEROL (test code = 2210) 210 MG/DL TRIGLYCERIDES (test code = 2232) 121 MG/DL HDL CHOLESTEROL (test code = 2220) 50 MG/DL CALCULATED LDL CHOL (test code = 136 MG/DL 2237) RISK RATIO LDL/HDL (test code = 2.72 RATIO 2238) LIPID [id number] 00:00:00 Test Item Value Reference Range Interpretation Comments CHOLESTEROL (test code = 2210) 210 MG/DL TRIGLYCERIDES (test code = 2232) 121 MG/DL HDL CHOLESTEROL (test code = 2220) 50 MG/DL CALCULATED LDL CHOL (test code = 136 MG/DL 2237) RISK RATIO LDL/HDL (test code = 2.72 RATIO 2238) CBC W/AUTO [id number] 00:00:00 Test Item Value Reference Range Interpretation [...] code = 1015) 223 K/UL CBC W/AUTO [id number] 00:00:00 Test Item Value Reference Range Interpretation [...] code = 1015) 223 K/UL CBC W/AUTO [id number] 00:00:00 Test Item Value Reference Range Interpretation [...] (test code = 1015) 223 K/UL HEMOGLOBIN [id number] 00:00:00 Test Item Value Reference Range Interpretation Comments HEMOGLOBIN A1c (test code = 30191) 5.5 % HEMOGLOBIN [id number] 00:00:00 Test Item Value Reference Range Interpretation Comments HEMOGLOBIN A1c (test code = 17659) 5.5 % HEMOGLOBIN [id number] 00:00:00 Test Item Value Reference Range Interpretation Comments HEMOGLOBIN A1c (test code = 60376) 5.5 % [id number] 00:00:00 Test Item Value Reference Range Interpretation Comments TSH (test code = 2821) 1.8 UIU/ML [id number] 00:00:00 Test Item Value Reference Range Interpretation Comments TSH (test code = 2821) 1.8 UIU/ML [id number] 00:00:00 Test Item Value Reference Range Interpretation Comments TSH (test code = 2821) 1.8 UIU/ML COMPREHENSIVE METABOLIC [id number] 00:00:00 Test Item Value Reference Range Interpretation Comments GLUCOSE (test code = 2217) 68 MG/DL BUN (test code = 2208) 11 MG/DL CREATININE (test code = 2214) 0.5 MG/DL eGFR AMER. (test code 159 ML/MIN/1.73 = 87582) eGFR NON- AMER. (test 131 ML/MIN/1.73 code = 96285) CALCULATED BUN/CREAT (test 22 RATIO code = [...] code = 2219) 19 U/L COMPREHENSIVE METABOLIC [id number] 00:00:00 Test Item Value Reference Range Interpretation Comments GLUCOSE (test code = 2217) 68 MG/DL BUN (test code = 2208) 11 MG/DL CREATININE (test code = 2214) 0.5 MG/DL eGFR AMER. (test code 159 ML/MIN/1.73 = 17504) eGFR NON- AMER. (test 131 ML/MIN/1.73 code = 59576) CALCULATED BUN/CREAT (test 22 RATIO code = [...] (test code = 2219) 19 U/L LIPID [id number] 00:00:00 Test Item Value Reference Range Interpretation Comments CHOLESTEROL (test code = 2210) 219 MG/DL TRIGLYCERIDES (test code = 2232) 176 MG/DL HDL CHOLESTEROL (test code = 2220) 53 MG/DL CALCULATED LDL CHOL (test code = 131 MG/DL 2237) RISK RATIO LDL/HDL (test code = 2.47 RATIO 2238) LIPID [id number] 00:00:00 Test Item Value Reference Range Interpretation Comments CHOLESTEROL (test code = 2210) 219 MG/DL TRIGLYCERIDES (test code = 2232) 176 MG/DL HDL CHOLESTEROL (test code = 2220) 53 MG/DL CALCULATED LDL CHOL (test code = 131 MG/DL 2237) RISK RATIO LDL/HDL (test code = 2.47 RATIO 2238) CBC W/AUTO [id number] 00:00:00 Test Item Value Reference Range Interpretation [...] code = 1015) 223 K/UL CBC W/AUTO [id number] 00:00:00 Test Item Value Reference Range Interpretation [...] code = 1015) 223 K/UL CBC W/AUTO [id number] 00:00:00 Test Item Value Reference Range Interpretation [...] (test code = 1015) 223 K/UL HEMOGLOBIN [id number] 00:00:00 Test Item Value Reference Range Interpretation Comments HEMOGLOBIN A1c (test code = 85985) 5.5 % HEMOGLOBIN [id number] 00:00:00 Test Item Value Reference Range Interpretation Comments HEMOGLOBIN A1c (test code = 11691) 5.5 % HEMOGLOBIN [id number] 00:00:00 Test Item Value Reference Range Interpretation Comments HEMOGLOBIN A1c (test code = 11480) 5.5 % [id number] 00:00:00 Test Item Value Reference Range Interpretation Comments TSH (test code = 2821) 1.8 UIU/ML [id number] 00:00:00 Test Item Value Reference Range Interpretation Comments TSH (test code = 2821) 1.8 UIU/ML [id number] 00:00:00 Test Item Value Reference Range Interpretation Comments TSH (test code = 2821) 1.8 UIU/ML COMPREHENSIVE METABOLIC [id number] 00:00:00 Test Item Value Reference Range Interpretation Comments GLUCOSE (test code = 2217) 68 MG/DL BUN (test code = 2208) 11 MG/DL CREATININE (test code = 2214) 0.5 MG/DL eGFR AMER. (test code 159 ML/MIN/1.73 = 44375) eGFR NON- AMER. (test 131 ML/MIN/1.73 code = 24812) CALCULATED BUN/CREAT (test 22 RATIO code = [...] code = 2219) 19 U/L COMPREHENSIVE METABOLIC [id number] 00:00:00 Test Item Value Reference Range Interpretation Comments GLUCOSE (test code = 2217) 68 MG/DL BUN (test code = 2208) 11 MG/DL CREATININE (test code = 2214) 0.5 MG/DL eGFR AMER. (test code 159 ML/MIN/1.73 = 23800) eGFR NON- AMER. (test 131 ML/MIN/1.73 code = 58591) CALCULATED BUN/CREAT (test 22 RATIO code = [...] code = 2219) 19 U/L COMPREHENSIVE METABOLIC [id number] 00:00:00 Test Item Value Reference Range Interpretation Comments GLUCOSE (test code = 2217) 68 MG/DL BUN (test code = 2208) 11 MG/DL CREATININE (test code = 2214) 0.5 MG/DL eGFR AMER. (test code 159 ML/MIN/1.73 = 74374) eGFR NON- AMER. (test 131 ML/MIN/1.73 code = 13802) CALCULATED BUN/CREAT (test 22 RATIO code = [...] (test code = 2219) 19 U/L LIPID [id number] 00:00:00 Test Item Value Reference Range Interpretation Comments CHOLESTEROL (test code = 2210) 219 MG/DL TRIGLYCERIDES (test code = 2232) 176 MG/DL HDL CHOLESTEROL (test code = 2220) 53 MG/DL CALCULATED LDL CHOL (test code = 131 MG/DL 2236) RISK RATIO LDL/HDL (test code = 2.47 RATIO 2238) LIPID [id number] 00:00:00 Test Item Value Reference Range Interpretation Comments CHOLESTEROL (test code = 2210) 219 MG/DL TRIGLYCERIDES (test code = 2232) 176 MG/DL HDL CHOLESTEROL (test code = 2220) 53 MG/DL CALCULATED LDL CHOL (test code = 131 MG/DL 2236) RISK RATIO LDL/HDL (test code = 2.47 RATIO 8) CBC W/AUTO [id number] 00:00:00 Test Item Value Reference Range Interpretation [...] code = 1015) 223 K/UL CBC W/AUTO [id number] 00:00:00 Test Item Value Reference Range Interpretation [...] code = 1015) 223 K/UL CBC W/AUTO [id number] 00:00:00 Test Item Value Reference Range Interpretation [...] (test code = 1015) 223 K/UL HEMOGLOBIN [id number] 00:00:00 Test Item Value Reference Range Interpretation Comments HEMOGLOBIN A1c (test code = 07370) 5.5 % HEMOGLOBIN [id number] 00:00:00 Test Item Value Reference Range Interpretation Comments HEMOGLOBIN A1c (test code = 56746) 5.5 % HEMOGLOBIN [id number] 00:00:00 Test Item Value Reference Range Interpretation Comments HEMOGLOBIN A1c (test code = 38307) 5.5 % [id number] 00:00:00 Test Item Value Reference Range Interpretation Comments TSH (test code = 2821) 1.8 UIU/ML [id number] 00:00:00 Test Item Value Reference Range Interpretation Comments TSH (test code = 2821) 1.8 UIU/ML [id number] 00:00:00 Test Item Value Reference Range Interpretation Comments TSH (test code = 2821) 1.8 UIU/ML LIPID [id number] 00:00:00 Test Item Value Reference Range Interpretation Comments CHOLESTEROL (test code = 2210) 219 MG/DL TRIGLYCERIDES (test code = 2232) 176 MG/DL HDL CHOLESTEROL (test code = 2220) 53 MG/DL CALCULATED LDL CHOL (test code = 131 MG/DL 7) RISK RATIO LDL/HDL (test code = 2.47 RATIO 2238) CBC W/AUTO [id number] 00:00:00 Test Item Value Reference Range Interpretation [...] code = 1015) 223 K/UL CBC W/AUTO [id number] 00:00:00 Test Item Value Reference Range Interpretation [...] (test code = 1015) 223 K/UL HEMOGLOBIN [id number] 00:00:00 Test Item Value Reference Range Interpretation Comments HEMOGLOBIN A1c (test code = 69144) 5.5 % HEMOGLOBIN [id number] 00:00:00 Test Item Value Reference Range Interpretation Comments HEMOGLOBIN A1c (test code = 07728) 5.5 % [id number] 00:00:00 Test Item Value Reference Range Interpretation Comments TSH (test code = 2821) 1.8 UIU/ML [id number] 00:00:00 Test Item Value Reference Range Interpretation Comments TSH (test code = 2821) 1.8 UIU/ML COMPREHENSIVE METABOLIC [id number] 00:00:00 Test Item Value Reference Range Interpretation Comments GLUCOSE (test code = 2217) 68 MG/DL BUN (test code = 2208) 11 MG/DL CREATININE (test code = 2214) 0.5 MG/DL eGFR AMER. (test code 159 ML/MIN/1.73 = 82655) eGFR NON- AMER. (test 131 ML/MIN/1.73 code = 79058) CALCULATED BUN/CREAT (test 22 RATIO code = [...] (test code = 2219) 19 U/L LIPID [id number] 00:00:00 Test Item Value Reference Range Interpretation Comments CHOLESTEROL (test code = 2210) 219 MG/DL TRIGLYCERIDES (test code = 2232) 176 MG/DL HDL CHOLESTEROL (test code = 2220) 53 MG/DL CALCULATED LDL CHOL (test code = 131 MG/DL 2236) RISK RATIO LDL/HDL (test code = 2.47 RATIO 8) CBC W/AUTO [id number] 00:00:00 Test Item Value Reference Range Interpretation [...] code = 1015) 223 K/UL CBC W/AUTO [id number] 00:00:00 Test Item Value Reference Range Interpretation [...] (test code = 1015) 223 K/UL HEMOGLOBIN [id number] 00:00:00 Test Item Value Reference Range Interpretation Comments HEMOGLOBIN A1c (test code = 40215) 5.5 % HEMOGLOBIN [id number] 00:00:00 Test Item Value Reference Range Interpretation Comments HEMOGLOBIN A1c (test code = 00282) 5.5 % [id number] 00:00:00 Test Item Value Reference Range Interpretation Comments TSH (test code = 2821) 1.8 UIU/ML [id number] 00:00:00 Test Item Value Reference Range Interpretation Comments TSH (test code = 2821) 1.8 UIU/ML COMPREHENSIVE METABOLIC [id number] 00:00:00 Test Item Value Reference Range Interpretation Comments GLUCOSE (test code = 2217) 68 MG/DL BUN (test code = 2208) 11 MG/DL CREATININE (test code = 2214) 0.5 MG/DL eGFR AMER. (test code 159 ML/MIN/1.73 = 71868) eGFR NON- AMER. (test 131 ML/MIN/1.73 code = 46347) CALCULATED BUN/CREAT (test 22 RATIO code = [...] (test code = 2219) 19 U/L LIPID [id number] 00:00:00 Test Item Value Reference Range Interpretation Comments CHOLESTEROL (test code = 2210) 219 MG/DL TRIGLYCERIDES (test code = 2232) 176 MG/DL HDL CHOLESTEROL (test code = 2220) 53 MG/DL CALCULATED LDL CHOL (test code = 131 MG/DL 2236) RISK RATIO LDL/HDL (test code = 2.47 RATIO 8) CBC W/AUTO [id number] 00:00:00 Test Item Value Reference Range Interpretation [...] code = 1015) 223 K/UL CBC W/AUTO [id number] 00:00:00 Test Item Value Reference Range Interpretation [...] (test code = 1015) 223 K/UL HEMOGLOBIN [id number] 00:00:00 Test Item Value Reference Range Interpretation Comments HEMOGLOBIN A1c (test code = 32946) 5.5 % HEMOGLOBIN [id number] 00:00:00 Test Item Value Reference Range Interpretation Comments HEMOGLOBIN A1c (test code = 52301) 5.5 % [id number] 00:00:00 Test Item Value Reference Range Interpretation Comments TSH (test code = 2821) 1.8 UIU/ML [id number] 00:00:00 Test Item Value Reference Range Interpretation Comments TSH (test code = 2821) 1.8 UIU/ML COMPREHENSIVE METABOLIC [id number] 00:00:00 Test Item Value Reference Range Interpretation Comments GLUCOSE (test code = 2217) 68 MG/DL BUN (test code = 2208) 11 MG/DL CREATININE (test code = 2214) 0.5 MG/DL eGFR AMER. (test code 159 ML/MIN/1.73 = 68246) eGFR NON- AMER. (test 131 ML/MIN/1.73 code = 98144) CALCULATED BUN/CREAT (test 22 RATIO code = [...] code = 2219) 19 U/L COMPREHENSIVE METABOLIC [id number] 00:00:00 Test Item Value Reference Range Interpretation Comments GLUCOSE (test code = 2217) 68 MG/DL BUN (test code = 2208) 11 MG/DL CREATININE (test code = 2214) 0.5 MG/DL eGFR AMER. (test code 159 ML/MIN/1.73 = 65208) eGFR NON- AMER. (test 131 ML/MIN/1.73 code = 01161) CALCULATED BUN/CREAT (test 22 RATIO code = [...] (test code = 2219) 19 U/L LIPID [id number] 00:00:00 Test Item Value Reference Range Interpretation Comments CHOLESTEROL (test code = 2210) 219 MG/DL TRIGLYCERIDES (test code = 2232) 176 MG/DL HDL CHOLESTEROL (test code = 2220) 53 MG/DL CALCULATED LDL CHOL (test code = 131 MG/DL 2236) RISK RATIO LDL/HDL (test code = 2.47 RATIO 2238) LIPID [id number] 00:00:00 Test Item Value Reference Range Interpretation Comments CHOLESTEROL (test code = 2210) 219 MG/DL TRIGLYCERIDES (test code = 2232) 176 MG/DL HDL CHOLESTEROL (test code = 2220) 53 MG/DL CALCULATED LDL CHOL (test code = 131 MG/DL 2236) RISK RATIO LDL/HDL (test code = 2.47 RATIO 2237)"
[2023-04-09 17:39] LABS: Absolute Lymphocytes (CBC) 2.8 K/uL (0.7-4.9); Hematocrit 45.9 % (36.0-45.0); Lymphocytes % 33.3 % (15.3-44.8); MCV 90.1 fL (80-100); MPV 9.4 fL (7.6-11.3); Platelets 200 thou/uL (152-406); RBC Red Blood Cell Count 5.09 M/uL (3.86-4.86)
[2023-04-09 17:45] LABS: Protime INR 1.06
--- NOTE | 2023-04-09 17:45 | RAD REPORT ---
EXAM DESCRIPTION: RAD - Chest Single View - 04/09/2023 5:35 pm CLINICAL HISTORY: DYSPNEA Chest pain. COMPARISON: Chest Single View dated 12/09/2022; Chest Single View dated 09/03/2022; Chest Single View d ated 01/02/2016; CHEST SINGLE VIEW dated 06/11/2015 FINDINGS: Portable technique limits examination quality. Mild pulmonary edema is seen. The heart is mildly prominent in size. No displaced fractures. IMPRESSION: Mild CHF.
[2023-04-09 17:53] LABS: Albumin 3.5 g/dL (3.4-5.0); Bilirubin Direct 0.1 mg/dL (0-0.2); Bilirubin Indirect, Calculated 0.5 mg/dL (0.2-0.8); Bilirubin Total 0.6 mg/dL (0.2-1.0); Magnesium 2.2 mg/dL (1.6-2.4); Potassium 3.7 mEq/L (3.5-5.1); Protein, Total 7.9 g/dL (6.4-8.2); Troponin High Sensitivity 64.1 pg/mL (<58.9)
--- NOTE | 2023-04-09 17:56 | RAD REPORT ---
EXAM DESCRIPTION: US - Extrem Venous W Compress Curt - 04/09/2023 5:49 pm CLINICAL HISTORY: SWELLING Bilateral leg edema and swelling. COMPARISON: <Comparisons> TECHNIQUE: Real-time sonographic interrogation of the left and right lower extremity deep venous sys tems was performed. FINDINGS: Normal compressibility, flow augmentation, phasic flow and spontaneous flow is identified in both the left and right lower extremity deep venous systems. IMPRESSION: No sonographic evidence of left or right lower extremity deep venous thrombosis.
[2023-04-09 18:09] LABS: SARS-CoV-2 Antigen Rapid Res Negative (Negative)
--- NOTE | 2023-04-09 18:20 | ER ---
Nurse's Notes [facility] Name: Nat Reilly Age: 57 yrs Sex: Female : 1965 Arrival Date: 04/09/2023 Time: 16:56 Bed 13 Private MD: Diagnosis: Dyspnea;Dizziness and giddiness;Obesity, unspecified;Abnormal levels of other serum enzymes-elevated troponin;Cardiomegaly;Syncope Near Presentation: 04/09 17:06 Chief complaint: Patient states: has been dizzy and feeling faint, started about 20 ko1 minutes ago. Coronavirus screen: At this time, the client does not indicate any symptoms associated with coronavirus-19. Ebola Screen: No symptoms or risks identified at this time. Initial Sepsis Screen: Does the patient meet any 2 criteria? No. Patient's initial sepsis screen is negative. Does the patient have a suspected source of infection? No. Patient's initial sepsis screen is negative. Risk Assessment: Do you want to hurt yourself or someone else? Patient reports no desire to harm self or others. Onset of symptoms was April 09, 2023 at 16:30. 17:06 Method Of Arrival: Ambulatory ko1 17:06 Acuity: KIRT 3 ko1 Triage Assessment: 17:07 General: Appears distressed, uncomfortable, Behavior is calm, cooperative, appropriate ko1 for age. Pain: Denies pain. Respiratory: Reports shortness of breath on exertion Onset: The symptoms/episode began/occurred gradually, the patient has moderate shortness of breath. Historical: - Allergies: 17:07 Amoxicillin; ko1 - Home Meds: 17:07 Metoprolol Tartrate Oral [Active]; ko1 - PMHx: 17:07 Anxiety; Hypertension; ko1 - Immunization history:: Adult Immunizations unknown. - Social history:: Smoking status: Patient denies any tobacco usage or history of. Screenin:30 [facility] ED Fall Risk Assessment (Adult) Score/Fall Risk Level 0 - 2 = Low Risk nj1 Oriented to surroundings, Maintained a safe environment, Hourly rounding (assess needs \T\ fall precautionary measures) done. Abuse screen: Denies threats or abuse. Denies injuries from another. Nutritional screening: No deficits noted. Tuberculosis screening: No symptoms or risk factors identified. Assessment: 18:30 Reassessment: See triage assessment. nj1 21:06 Neuro: Faustin Agitation-Sedation Scale (RASS): 0 - Alert and Calm Level of la4 Consciousness is awake, alert, obeys commands, Oriented to person, place, time, situation, Appropriate for age. Cardiovascular: No deficits noted. Rhythm is regular. Respiratory: Airway Breath sounds are clear bilaterally. Respiratory: Airway is patent Trachea midline Respiratory effort is even, unlabored. Vital Signs: 17:06 BP 147 / 69; Pulse 73; Resp 16; Temp 97.9; Pulse Ox 99% ; Weight 133.36 kg; Height 5 ko1 ft. 1 in. ; 19:05 BP 135 / 86; Pulse 71; Resp 18; Temp 98.7; Pulse Ox 100% on R/A; la4 19:30 BP 139 / 79; Pulse 71; Resp 20; Pulse Ox 100% ; la4 20:00 BP 121 / 58; Pulse 66; Resp 20; Pulse Ox 99% ; la4 20:30 BP 134 / 71; Pulse 69; Resp 20; Pulse Ox 100% on R/A; la4 22:24 BP 142 / 74; Pulse 69; Resp 20; Pulse Ox 98% ; Pain 0/10; la4 17:06 Body Mass Index 55.55 (133.36 kg, 154.94 cm) ko1 22:24 Pain Scale: Adult la4 Excel Coma Score: 20:30 Eye Response: spontaneous(4). Motor Response: obeys commands(6). Verbal Response: la4 oriented(5). Total: 15. 22:24 Eye Response: spontaneous(4). Motor Response: obeys commands(6). Verbal Response: la4 oriented(5). Total: 15. NIH Stroke Scale Scores: 17:29 NIHSS Score: 0 [facility] ED Course: 16:58 Patient arrived in ED. im 17:02 Diego Enriquez MD is Attending Physician. [facility] 17:07 Triage completed. ko1 17:07 Arm band placed on right wrist. Patient placed in an exam room, Patient notified of ko1 wait time. 17:27 Flu Sent. kj1 17:27 SARS RAPID Sent. kj1 17:37 XRAY Chest (1 view) In Process Unspecified. EDMS 17:51 US Extremity Venous W Compression Curt In Process Unspecified. EDMS 18:12 Idania Petersen, ANAND is Primary Nurse. nj1 18:17 Anand Parks MD is Hospitalizing Provider. parveen 18:30 Patient has correct armband on for positive identification. Bed in low position. Call nj1 light in reach. 18:30 Provided Education on: call light, fall precautions. nj1 18:49 CT Chest For PE Angio In Process Unspecified. EDMS 19:05 Report given to Kalli MICHEL. nj1 20:30 Awaiting bed assignment. la4 20:30 No provider procedures requiring assistance completed. IV is patent, is intact, 20G PIV la4 to the [facility] AC placed during previous shift. . Patient admitted, IV remains in place. intact. Administered Medications: 18:36 Drug: Aspirin PO Chewable Tablet 324 mg PO once; 81 mg tablets x 4 Route: PO; nj1 18:39 Drug: NS 0.9% IV 1000 ml IV at 1 bolus Per protocol; 1000 mL bolus Route: IV; Rate: 1 nj1 bolus; Site: left antecubital; 18:39 Drug: Famotidine IVP 20 mg IVP once; dilute with 10 mL 0.9% NaCl; give over 2 minutes nj1 Route: IVP; Site: left antecubital; 18:40 Drug: Enoxaparin Sub-Q 1 mg/kg Sub-Q once Route: Sub-Q; Site: abdomen; nj1 Medication: 20:30 VIS not applicable for this client. la4 Outcome: 18:19 Decision to Hospitalize by Provider. parveen 20:30 Condition: stable la4 20:30 Instructed on the need for admit, 22:24 Admitted to Tele accompanied by tech, via stretcher, room 404, Report called to Nasir brandt RN 12/ 00:56 Patient left the ED. NIH Stroke Scale - NIH Stroke Score Date: 04/09/2023 Time: 17:29 Total Score = 0 10. Dysarthria (speech clarity - read or repeat words) - 0(Normal) 11. Extinction and Inattention (visual/tactile/auditory/spatial/personal) - 0(No abnormality) 1a. Level of Consciousness (LOC) - 0(Alert) 1b. Level of Consciousness (LOC) (Month \T\ Age) - 0(Both) 1c. LOC Commands (Open \T\ Closes Eyes/Color Consultant) - 0(Both) 2. Best Gaze (Lateral Gaze Paresis) - 0(Normal) 3. Visual Field Loss - 0(No visual loss) 4. Facial Palsy - 0(Normal) 5a. Left Arm: Motor (10-second hold) - 0(No drift) 5b. Right Arm: Motor (10-second hold) - 0(No drift) 6a. Left Leg: Motor (5-second hold - always test supine) - 0(No drift) 6b. Right Leg: Motor (5-second hold - always test supine) - 0(No drift) 7. Limb Ataxia (finger/nose \T\ heel/sawant - test with eyes open) - 0(Absent) 8. Sensory Loss (pinprick arms/legs/face) - 0(Normal) 9. Best Language: Aphasia (description/naming/reading) - 0(No aphasia) Initials: parveen Signatures: Dispatcher [employer] Toshia Gallegos, RN Diego Zelaya MD MD cha Jackson, Kandis kj1 Leslye Wilson RN RN ko1 Idania Petersen RN RN nj1 Naima Campbell La'Rea, RN RN la4
--- NOTE | 2023-04-09 18:20 | EDPHYS ---
Physician Documentation [facility] Name: Nat Reilly Age: 57 yrs Sex: Female : 1965 Arrival Date: 04/09/2023 Time: 16:56 Bed 13 Private MD: ED Physician Diego Enriquez HPI: 04/09 17:15 This 57 yrs old Female presents to ER via Ambulatory with complaints of parveen Dizziness, Shortness Of Breath, Near Syncope. 17:15 The patient presents with dizziness, generalized weakness. Onset: The symptoms/episode parveen began/occurred just prior to arrival. Context: occurred at home, occurred while the patient was crying, driving. Modifying factors: The symptoms are alleviated by nothing, the symptoms are aggravated by nothing. Associated signs and symptoms: Pertinent positives: palpitations, shortness of breath. Severity of symptoms: At their worst the symptoms were mild in the emergency department the symptoms are unchanged. Patient's baseline: Neuro: alert and fully oriented. The patient has not experienced similar symptoms in the past. Historical: - Allergies: 17:07 Amoxicillin; ko1 - Home Meds: 17:07 Metoprolol Tartrate Oral [Active]; ko1 - PMHx: 17:07 Anxiety; Hypertension; ko1 - Immunization history:: Adult Immunizations unknown. - Social history:: Smoking status: Patient denies any tobacco usage or history of. ROS: 17:17 Constitutional: Negative for fever, chills, and weight loss, Eyes: Negative for injury, parveen pain, redness, and discharge, ENT: Negative for injury, pain, and discharge, Neck: Negative for injury, pain, and swelling, Cardiovascular: Negative for chest pain, palpitations, and edema, Abdomen/GI: Negative for abdominal pain, nausea, vomiting, diarrhea, and constipation, Back: Negative for injury and pain, : Negative for injury, bleeding, discharge, and swelling, MS/Extremity: Negative for injury and deformity, Skin: Negative for injury, rash, and discoloration, Neuro: Negative for headache, weakness, numbness, tingling, and seizure, Psych: Negative for depression, anxiety, suicide ideation, homicidal ideation, and hallucinations, Allergy/Immunology: Negative for hives, rash, and allergies, Endocrine: Negative for neck swelling, polydipsia, polyuria, polyphagia, and marked weight changes, 17:17 Respiratory: Positive for shortness of breath, Exam: 17:17 Constitutional: This is a well developed, well nourished patient who is awake, alert, parveen and in no acute distress. Head/Face: Normocephalic, atraumatic. Eyes: Pupils equal round and reactive to light, extra-ocular motions intact. Lids and lashes normal. Conjunctiva and sclera are non-icteric and not injected. Cornea within normal limits. Periorbital areas with no swelling, redness, or edema. ENT: Nares patent. No nasal discharge, no septal abnormalities noted. Tympanic membranes are normal and external auditory canals are clear. Oropharynx with no redness, swelling, or masses, exudates, or evidence of obstruction, uvula midline. Mucous membranes moist. Neck: Trachea midline, no thyromegaly or masses palpated, and no cervical lymphadenopathy. Supple, full range of motion without nuchal rigidity, or vertebral point tenderness. No Meningismus. Chest/axilla: Normal chest wall appearance and motion. Nontender with no deformity. No lesions are appreciated. Cardiovascular: Regular rate and rhythm with a normal S1 and S2. No gallops, murmurs, or rubs. Normal PMI, no JVD. No pulse deficits. Respiratory: Lungs have equal breath sounds bilaterally, clear to auscultation and percussion. No rales, rhonchi or wheezes noted. No increased work of breathing, no retractions or nasal flaring. Abdomen/GI: Soft, non-tender, with normal bowel sounds. No distension or tympany. No guarding or rebound. No evidence of tenderness throughout. Back: No spinal tenderness. No costovertebral tenderness. Full range of motion. Female : Normal external genitalia. Skin: Warm, dry with normal turgor. Normal color with no rashes, no lesions, and no evidence of cellulitis. MS/ Extremity: Pulses equal, no cyanosis. Neurovascular intact. Full, normal range of motion. Neuro: Awake and alert, GCS 15, oriented to person, place, time, and situation. Cranial nerves II-XII grossly intact. Motor strength 5/5 in all extremities. Sensory grossly intact. Cerebellar exam normal. Normal gait. Psych: Awake, alert, with orientation to person, place and time. Behavior, mood, and affect are within normal limits. 17:17 Musculoskeletal/extremity: DVT Exam: No signs of deep vein thrombosis. no pain, no swelling, no tenderness, negative Homans' sign noted on exam, no appreciated bluish discoloration, no erythema, no increased warmth, Vital Signs: 17:06 BP 147 / 69; Pulse 73; Resp 16; Temp 97.9; Pulse Ox 99% ; Weight 133.36 kg; Height 5 ko1 ft. 1 in. ; 19:05 BP 135 / 86; Pulse 71; Resp 18; Temp 98.7; Pulse Ox 100% on R/A; la4 19:30 BP 139 / 79; Pulse 71; Resp 20; Pulse Ox 100% ; la4 20:00 BP 121 / 58; Pulse 66; Resp 20; Pulse Ox 99% ; la4 20:30 BP 134 / 71; Pulse 69; Resp 20; Pulse Ox 100% on R/A; la4 22:24 BP 142 / 74; Pulse 69; Resp 20; Pulse Ox 98% ; Pain 0/10; la4 17:06 Body Mass Index 55.55 (133.36 kg, 154.94 cm) ko1 22:24 Pain Scale: Adult la4 NIH Stroke Scale Scores: 17:29 NIHSS Score: 0 parveen [place] Coma Score: 20:30 Eye Response: spontaneous(4). Motor Response: obeys commands(6). Verbal Response: la4 oriented(5). Total: 15. 22:24 Eye Response: spontaneous(4). Motor Response: obeys commands(6). Verbal Response: la4 oriented(5). Total: 15. MDM: 17:02 Patient medically screened. [facility] 04/09 17:03 Order name: Basic Metabolic Panel; Complete Time: 18:03 [facility] 04/09 17:03 Order name: CBC with Diff; Complete Time: 18:03 [facility] 04/09 17:03 Order name: LFT's; Complete Time: 18:03 [facility] 04/09 17:03 Order name: Magnesium; Complete Time: 18:03 [facility] 04/09 17:03 Order name: NT PRO-BNP; Complete Time: 18:03 [facility] 04/09 17:03 Order name: PT-INR; Complete Time: 18:03 [facility] 04/09 17:03 Order name: Troponin HS; Complete Time: 18:03 [facility] 04/09 17:03 Order name: D-Dimer; Complete Time: 18:03 [facility] 04/09 17:03 Order name: Lipase; Complete Time: 18:03 [facility] 04/09 17:03 Order name: Urinalysis w/ reflexes; Complete Time: 19:12 [facility] 04/09 17:14 Order name: Flu; Complete Time: 19:12 [facility] 04/09 17:14 Order name: SARS RAPID; Complete Time: 18:15 [facility] 04/09 17:03 Order name: XRAY Chest (1 view); Complete Time: 18:03 [facility] 04/09 17:18 Order name: US Extremity Venous W Compression Curt; Complete Time: 18:03 [facility] 04/09 18:07 Order name: CT Chest For PE Angio; Complete Time: 19:12 [facility] 04/09 21:18 Order name: Echo with Doppler [facility] 04/09 17:03 Order name: EKG; Complete Time: 17:04 [facility] 04/09 17:03 Order name: Cardiac monitoring; Complete Time: 18:11 [facility] 04/09 17:03 Order name: EKG - Nurse/Tech; Complete Time: 18:11 [facility] 04/09 17:03 Order name: IV Saline Lock; Complete Time: 17:26 [facility] 04/09 17:03 Order name: Labs collected and sent; Complete Time: 17:26 [facility] 04/09 17:03 Order name: O2 Per Protocol; Complete Time: 17:27 [facility] 04/09 18:07 Order name: IV Saline Lock - Large Bore; Complete Time: 19:15 [facility] Administered Medications: 18:36 Drug: Aspirin PO Chewable Tablet 324 mg PO once; 81 mg tablets x 4 Route: PO; nj1 18:39 Drug: NS 0.9% IV 1000 ml IV at 1 bolus Per protocol; 1000 mL bolus Route: IV; Rate: 1 nj1 bolus; Site: left antecubital; 18:39 Drug: Famotidine IVP 20 mg IVP once; dilute with 10 mL 0.9% NaCl; give over 2 minutes nj1 Route: IVP; Site: left antecubital; 18:40 Drug: Enoxaparin Sub-Q 1 mg/kg Sub-Q once Route: Sub-Q; Site: abdomen; nj1 Disposition Summary: 04/09/23 18:19 Hospitalization Ordered Notes: Hospitalization Status: Inpatient Admission parveen Provider: Anand Parks cha Location: Telemetry/MedSurg (Inpatient) parveen Condition: Fair parveen Problem: new parveen Symptoms: have improved parveen Bed/Room Type: Standard parveen Room Assignment: 404(04/09/23 21:46) cg Diagnosis - Dyspnea parveen - Dizziness and giddiness parveen - Obesity, unspecified parveen - Abnormal levels of other serum enzymes - elevated troponin parveen - Cardiomegaly parveen - Syncope Near parveen Forms: - Medication Reconciliation Form parveen - SBAR form parveen - Leadership Thank You Letter [facility] NIH Stroke Scale - NIH Stroke Score Date: 04/09/2023 Time: 17:29 Total Score = 0 10. Dysarthria (speech clarity - read or repeat words) - 0(Normal) 11. Extinction and Inattention (visual/tactile/auditory/spatial/personal) - 0(No abnormality) 1a. Level of Consciousness (LOC) - 0(Alert) 1b. Level of Consciousness (LOC) (Month \T\ Age) - 0(Both) 1c. LOC Commands (Open \T\ Closes Eyes/Fuller Brush Man) - 0(Both) 2. Best Gaze (Lateral Gaze Paresis) - 0(Normal) 3. Visual Field Loss - 0(No visual loss) 4. Facial Palsy - 0(Normal) 5a. Left Arm: Motor (10-second hold) - 0(No drift) 5b. Right Arm: Motor (10-second hold) - 0(No drift) 6a. Left Leg: Motor (5-second hold - always test supine) - 0(No drift) 6b. Right Leg: Motor (5-second hold - always test supine) - 0(No drift) 7. Limb Ataxia (finger/nose \T\ heel/sawant - test with eyes open) - 0(Absent) 8. Sensory Loss (pinprick arms/legs/face) - 0(Normal) 9. Best Language: Aphasia (description/naming/reading) - 0(No aphasia) Initials: parveen Signatures: Dispatcher [employer] EDDiego Jiménez MD MD cha Garcia, Cindy RN ANAND cg Leslye Wilson RN RN [email or web address] Kerri Skinner rv1 Idania Petersen RN RN nj1 Corrections: (The following items were deleted from the chart) 21:30 18:19 parveen rv1 21:46 21:30 420 rv1 cg
[2023-04-09] MEDS ORDERED: ASPIRIN 81 MG CHEWABLE TABLET ONE (18:31)
[2023-04-09] MEDS ORDERED: ENOXAPARIN 30 MG/0.3 ML SQ ONE (18:32)
[2023-04-09] MEDS ORDERED: NA CHLORIDE 0.9% 1,000 ML ONE (18:32)
[2023-04-09] MEDS ORDERED: ENOXAPARIN 100 MG/ML SYR SQ ONE (18:32)
[2023-04-09] MEDS ORDERED: FAMOTIDINE 20 MG/2 ML VIAL IV ONE (18:32)
[2023-04-09 18:57] LABS: Specific Gravity 1.021 (1.005-1.030); Urine Bacteria <20 /HPF (<20); Urine Bilirubin NEGATIVE (Negative); Urine Blood Negative (Negative); Urine Clarity Turbid (Clear); Urine Color Light-Yellow (Yellow); Urine Glucose NEGATIVE (Negative); Urine Mucus Slight /HPF (None Seen); Urine Protein NEGATIVE (Negative); Urine RBC <5 /HPF (None Seen); Urine Urobilinogen Normal (Normal)
--- NOTE | 2023-04-09 19:02 | RAD REPORT ---
EXAM DESCRIPTION: CT - Chest For Pe Angio - 04/09/2023 6:47 pm CLINICAL HISTORY: Chest pain. DYSPNEA COMPARISON: <Comparisons> TECHNIQUE: CT angiogram of the pulmonary arteries was performed with MIP. All CT scans are performed using dose optimization technique as appropriate and may include automated exposure control or mA/KV adjustment according to patient size. FINDINGS: No evidence of pulmonary thromboembolism. No acute aortic finding demonstrated. The lungs are clear. No significant pericardial or pleural fluid. No concerning bony finding. IMPRESSION: No evidence of pulmonary thromboembolism. No acute lung findings.
[2023-04-09] MEDS ORDERED: ACETAMINOPHEN 500 MG TAB ONE (19:37)
[2023-04-09] MEDS ORDERED: AZITHROMYCIN 200 MG/5ML ORAL SUSP ONE (19:40)
[2023-04-09] MEDS ORDERED: CEFTRIAXONE 1000 MG/VIAL ONE (19:40)
[2023-04-09] MEDS ORDERED: NA CHLORIDE 0.9% 50 ML ONE (19:40)
[2023-04-09] MEDS ORDERED: WATER FOR INJ,STERILE 10 ML ONE (19:40)
[2023-04-09] MEDS ORDERED: ONDANSETRON 4 MG/2 ML VIAL IV PRN (21:12)
--- NOTE | 2023-04-09 21:16 | P.HP ---
Certification for Inpatient Patient admitted to: Observation With expected LOS: <2 Midnights Practitioner: I am a practitioner with admitting privileges, knowledge of patient current condition, hospital course, and medical plan of care. Services: Services provided to patient in accordance with Admission requirements found in Title 42 Section 412.3 of the Code of Federal Regulations Patient History Date of Service: 04/10/23 Reason for admission: Weakness, troponinemia. History of Present Illness: 57-year-old female patient was medical history significant for hypertension, anx iety disorder, morbid obesity was evaluated for episode of weakness. She reported that she can feel weak and tired and extremely lethargic while driving so she decided to park by the right side and then decided come to the ED. In the emergency department initial labs are not overtly concerning for For slight elevated troponin of 58 and elevated D-dimer. No chest pain reported. No fever no chills no nausea no vomiting. Imaging studies are not overtly concerning. She was asked to be admitted on observation for episode of weakness and suspected syncope. Allergies hydrocodone Adverse Reaction (Mild, Verified 06/11/15 22:44) Itching/Hives/Rash Hydrocodone-Acetaminophen Allergy (Uncoded 07/01/15 21:50) Unknown N Allergy (Uncoded 01/03/16 00:01) Unknown Home Medications: Metoprolol Tartrate [Lopressor] 50 mg PO BID 06/11/15 Pantoprazole Sodium 40 mg PO DAILY 12/09/22 - Past Medical/Surgical History Diabetic: No -: HTN -: CHRONIC NECK PAIN -: Anxiety disorder -: Morbid obesity -: Shingles. -: CHOLECYSTECTOMY -: - Family History Father -: Heart disease, Hypertension, Diabetes Mother -: Liver disease Sister -: Heart disease, Other (see notes) Notes: FIBROMYALGIA Brother -: Diabetes - Social History Alcohol use: No CD- Drugs: No Caffeine use: Yes Review of Systems General: Weakness, Malaise Eyes: Unremarkable ENT: Unremarkable Respiratory: Unremarkable Cardiovascular: Unremarkable Gastrointestinal: Unremarkable Genitourinary: Unremarkable Musculoskeletal: Unremarkable Integumentary: Unremarkable Neurological: Unremarkable Physical Examination - Physical Exam General: Alert, Oriented x3 HEENT: Atraumatic Neck: Supple Respiratory: Normal air movement Cardiovascular: Regular rate/rhythm, Normal S1 S2 Gastrointestinal: Soft and benign Musculoskeletal: No swelling Neurological: Normal speech - Studies Laboratory Data (last 24 hrs) 04/09/23 04/09/23 04/09/23 17:23 17:23 17:23 WBC 8.50 Hgb 15.4 H Hct 45.9 H Plt Count 200 PT 11.7 INR 1.06 Sodium 139 Potassium 3.7 BUN 15 Creatinine 0.67 Glucose 92 Magnesium 2.2 Total Bilirubin 0.6 AST 26 ALT 37 Alkaline Phosphatase 96 Lipase 36 Microbiology Data (last 24 hrs): 04/09/23 17:34 Nasopharnyx Influenza Type A Antigen Screen - Final 04/09/23 17:34 Nasopharnyx Influenza Type B Antigen Screen - Final Assessment and Plan - Plan Troponinemia: Etiology yet to be fully determined however ACS to be ruled out. There is concern for suspected viral etiology. COVID test and flu test are negative. Will continue monitoring on telemetry. Will trend troponin. History of hypertension: We will monitor vital signs per unit protocol and continue antihypertensive medications. Obesity: We will continue to agree with Prophylaxis: Lovenox for DVT prophylaxis. CODE STATUS: Full code. Disposition: pending medical clearance. - Advance Directives Does patient have a Living Will: No Does patient have a Durable POA for Healthcare: No
[2023-04-10 00:06] VITALS: BMI 53.8
[2023-04-10] MEDS: METOPROLOL TAR 50 MG TAB PO SCH ×3 (00:45→19:58)
[2023-04-10] MEDS: ACETAMINOPHEN 325 MG TABLET PO PRN ×2 (00:45→19:58)
[2023-04-10] MEDS: NA CHLORIDE 0.9% 1,000 ML IV SCH ×2 (00:47→11:45)
[2023-04-10 01:18] VITALS: O2SAT 98
[2023-04-10] MEDS: ENOXAPARIN 40 MG/0.4 ML SQ SCH (08:40)
--- NOTE | 2023-04-10 14:49 | EKG ---
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
[2023-04-11] MEDS: NA CHLORIDE 0.9% 1,000 ML IV SCH (03:19)
[2023-04-11 04:55] LABS: Absolute Lymphocytes (CBC) 2.2 K/uL (0.7-4.9); Hematocrit 42.1 % (36.0-45.0); Lymphocytes % 34.3 % (15.3-44.8); MCV 91.9 fL (80-100); RBC Red Blood Cell Count 4.58 M/uL (3.86-4.86)
[2023-04-11 05:14] LABS: Magnesium 2.2 mg/dL (1.6-2.4)
[2023-04-11 05:34] LABS: MPV 10.5 fL (7.6-11.3); Platelets 225 thou/uL (152-406)
[2023-04-11 05:35] LABS: White Blood Cell Scan OK (OK)
[2023-04-11 05:36] LABS: Blood Morphology Comment NOT SEEN (NOT SEEN); Platelet Estimate ADEQ
[2023-04-11] MEDS: ACETAMINOPHEN 325 MG TABLET PO PRN (06:08)
[2023-04-11] MEDS: METOPROLOL TAR 50 MG TAB PO SCH (07:54)
[2023-04-11] MEDS: ENOXAPARIN 40 MG/0.4 ML SQ SCH (07:54)
[2023-04-11 12:41] VITALS: BP 159/82; TEMP 97.1
[2023-04-12 05:12] LABS: C.diff Antigen/Toxin Ag neg : Tox neg (NEG : NEG)
--- NOTE | 2023-04-13 07:39 | ECHO ---
HEIGHT: 5 ft 1 in WEIGHT: 294 lb 0 oz DATE OF STUDY: 04/10/[address]: Alejandro Oliveira MD 2-DIMENSIONAL: YES M.MODE: YES DOPPLER: YES COLOR FLOW: YES TDS: PORTABLE: YES DEFINITY: BUBBLE STUDY: DIAGNOSIS: EVALUATION OF SYNCOPE CARDIAC HISTORY: CATHERIZATION: NO SURGERY: NO PROSTHETIC VALVE: NO PACEMAKER: NO MEASUREMENTS (cm) DIASTOLIC (NORMALS) SYSTOLIC (NORMALS) IVSd 1.1 (0.6-1.2) LA Diam 2.9 (1.9-4.0) LVEF 50% LVIDd 4.7 (3.5-5.7) LVIDs 3.5 (2.0-3.5) %FS 25% LVPWd 1.2 (0.6-1.2) Ao Diam 2.8 (2.0-3.7) 2 DIMENSIONAL ASSESSMENT: RIGHT ATRIUM: NORMAL LEFT ATRIUM: NORMAL RIGHT VENTRICLE: NORMAL LEFT VENTRICLE: NORMAL TRICUSPID VALVE: MILD TRICUSPID REGURGITATION MITRAL VALVE: MILD MITRAL REGURGITATION PULMONIC VALVE: NONE AORTIC VALVE: NORMAL PERICARDIAL EFFUSION: NONE AORTIC ROOT: NORMAL LEFT VENTRICULAR WALL MOTION: NORMAL DOPPLER/COLOR FLOW: SEE BELOW COMMENTS: 1. NORMAL LEFT VENTRICULAR EJECTION FRACTION 55-60% WITH NORMAL WALL MOTION 2. DIASTOLIC DYSFUNCTION 3. MILD MITRAL REGURGITATION 4. MILD TRICUSPID REGURGITATION TECHNOLOGIST: NENA HURLEY
== END 2023-04-11 14:35 | disposition home or self-care (01) ==
LOC: ER 16:56 → 4TH 21:12
PROVIDERS: ADMIT Internal Medicine Nephrology; ATTEND Hospitalist
DX: R53.1 Weakness (principal); R79.89 Other specified abnormal findings of blood chemistry; I10 Essential (primary) hypertension; F41.9 Anxiety disorder, unspecified; E66.01 Morbid (severe) obesity due to excess calories; I51.7 Cardiomegaly; R06.00 Dyspnea, unspecified; Z11.52 Encounter for screening for COVID-19; Z68.43 Body mass index [BMI] 50.0-59.9, adult; Z71.3 Dietary counseling and surveillance; Z88.5 Allergy status to narcotic agent; Z88.1 Allergy status to other antibiotic agents
CPT/HCPCS: 93005; 93306; 87045; 85025 ×2; 81001; 80048 ×2; 36415 ×2; 83735 ×2; 84100; 85610; 85379; 80076; 87046; 87324; 84484 ×4; 83690; 83880; 87804 ×2; 71275; 71045; 93970; 96372; 96374; 99285; 87811; Q9967; J1650 ×4; J7030 ×4; J0696; G0378 ×4

== ENCOUNTER → 2023-05-10 | Emergency (ER) | payer OTHER ==
[~2023-05-10] MED LIST: ACETAMINOPHEN 500 MG TAB ONE; LORazepam 2 MG/ML VIAL ONE; NA CHLORIDE 0.9% 1,000 ML ONE; ONDANSETRON 4 MG/2 ML VIAL ONE
--- OUTSIDE RECORDS SUMMARY | 2023-05-10 01:23 | XMS REPORT | Continuity of Care Document ---
Author Name Unknown Address [address] [facility] [address]. [address] [place] [address] [facility] thconnect Address [address] [facility]. [address] [place] [address] Care Team Providers Care Ecd Name Role Phone Jose Wilson [facility], [facility] Physician Janneth Yang Attending Clinician [phone] Doctor Unassigned, [place] Attending Clinician U SOUMYA aCnela Attending Clinician Unavailab MICHAEL Henry Attending Clinician Unavailable Michael Riley Attending Clinician [phone] Evaristo Gabriel MD Attending Clinician [phone] CHERYL ESPINOZA Attending Clinician Unavail able Cheryl Villanueva Attending Clinician + EVARISTO GABRIEL Attending Clinician Unavailable CHARLOTTE MURPHY Attending Clinician Unavailable Mitra Barajas NP Attending Clinician [phone] Charlotte Murphy MD Attending Clinician [phone] REBEKA AG Attending Clinician Unavail able Anni Simon Attending Clinician [phone] Soumya Stanton Attending Clinician [phone] MICHAEL MUELLER Admitting Clinician Unavailable CHARLOTTE MURPHY Admitting Clinician Unavailable Charlotte Murphy MD Admitting Clinician Payers Payer Name Policy Type Policy Number Effective Date Expirati on Date Source MEDICAID ALIEN PENDING PENDING 2021 00:00:00 Problems Condition Name Condition Details Condition Category Status Onset Date Resolution Date Last Treatment Date Treating Clinician Comments Source Dyslipidem ia Dyslipidem ia Disease Active 2020-05 00:00: 00 [facility] Left arm pain Left arm pain Disease Active 2020-05 00:00: 00 [facility] Atypical chest pain Atypical chest pain Disease Active 2020-05 00:00: 00 [facility] BMI 50.0-59.9, adult BMI 50.0-59.9, adult Disease Active 11-29 00:00: 00 [facility] Encounter for surveillan ce of contracept jacqueline, unspecifie d contracept alycia Encounter for surveillan ce of contracept jacqueline, unspecifie d contracept alycia Disease Active 11-29 00:00: 00 [facility] Well woman exam Well woman exam Disease Active 11-29 00:00: 00 [facility] Essential hypertensi on Essential hypertensi on Disease Active 02-05 00:00: 00 [facility] Breast tenderness in female Breast tenderness in female Disease Active 06-12 00:00: 00 [facility] Generalize d anxiety disorder Generalize d anxiety disorder Disease Active 06-12 00:00: 00 [facility] Encounter for routine gynecologi yady examinatio n Encounter for routine gynecologi yady examinatio n Disease Recurre nce 07-07 00:00: 00 Overview: Formattin g of this note might be different from the original. 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 [facility] Allergies, Adverse Reactions, Alerts Allergy Name Allergy Type Status Severity Reaction(s) Onset Date Inactive Date Treating Clinician Comments Source NO KNOWN ALLERGIE S Drug Class Active 06-01 00:00: 00 [facility] No Known Allergie s Propensi ty to adverse reaction s Active 06-01 00:00: 00 [facility] Social History Social Habit Start Date Stop Date Quantity Comments Source Gender identity [facility] Exposure to SARS-CoV-2 (event) 2021-09-14 00:00:00 2021-09-24 22:26:00 Not sure [facility] Alcohol intake 2021-09-24 00:00:00 2021-09-24 00:00:00 Current non-drinker of alcohol (finding) [facility] History of Social function 2018-11-29 00:00:00 2018-11-29 00:00:00 [facility] Tobacco use and exposure 2017-02-06 00:00:00 2017-02-06 00:00:00 Smokeless tobacco non-user [facility] Sex Assigned At 1965 00:00:00 1965 00:00:00 [facility] Smoking Status Start Date Stop Date Source Never smoked tobacco [facility] Medications Ordered Medication Name Filled Medication Name Start Date Stop Date Current Medication? Ordering Clinician Indication Dosage Frequency Signature (SIG) Comments Components Source hyoscyamine sulfate (LEVSIN/SL) sublingual tablet 0.125 mg 09-25 09:00: 00 09-25 08:07 :00 No .125mg 0.125 mg, Sublingual , ONCE NOW, 1 dose, On Thu09/25/21 at 0400, Routine [facility] proMETHazin e (PHENERGAN) injection 25 mg 09-25 09:00: 00 09-25 08:07 :00 No 25mg 25 mg, Intramuscu lar, ONCE, 1 dose, On Thu09/25/21 at 0400, ROZ [facility] maalox:diph enhydrAMINE :lidocaine 2 % viscous 1:1:1 (FIRST-MOUT HWASH BLM) oral suspension 15 mL 09-25 08:15: 00 09-25 07:45 :00 No 15mL 15 mL, Oral, ONCE, 1 dose, On Thu09/25/21 at 0315, Routine [facility] metoclopram sacha HCl (REGLAN) injection 10 mg 09-25 07:30: 00 09-25 06:35 :00 No 10mg 10 mg, Slow IV Push, ONCE, 1 dose, On Thu09/25/21 at 0230, ROZ [facility] iopamidol (ISOVUE 370-500 mL) injection 120 mL 09-25 07:15: 00 09-25 05:59 :00 No [id number] 120mL 120 mL, Intravenou s, ONCE, 1 dose, On Thu09/25/21 at 0215, Routine [facility] FENTanyl PF (SUBLIMAZE (PF)) injection 50 mcg 09-25 05:15: 00 09-25 04:51 :00 No 50ug 50 mcg, Slow IV Push, ONCE, 1 dose, On Thu09/25/21 at 0015, STAT [facility] ondansetron (ZOFRAN (PF)) injection 4 mg 09-25 05:15: 00 09-25 04:51 :00 No 4mg 4 mg, Slow IV Push, ONCE, 1 dose, On Thu09/25/21 at 0015, ROZ [facility] NaCl 0.9% (NS) bolus infusion 1,000 mL 09-25 05:15: 00 09-25 08:50 :00 No 1000mL at 999 mL/hr, 1,000 mL, IV Infusion, ONCE, 1 dose, On Thu09/25/21 at 0015, ROZ [facility] dicyclomine 10 mg capsule 09-25 00:00: 00 Yes [id number] 10mg Take 1 capsule by mouth 4 (four) times daily. [facility] proMETHazin e 25 mg tablet 09-25 00:00: 00 Yes [id number] 25mg Take 1 tablet by mouth every 6 (six) hours as needed for Nausea and Vomiting (N/V). [facility] dicyclomine 10 mg capsule 09-25 00:00: 00 Yes [id number] 10mg Take 1 capsule by mouth 4 (four) times daily. [facility] proMETHazin e 25 mg tablet 18 00:00: 00 Yes [id number] 25mg Take 1 tablet by mouth every 6 (six) hours as needed for Nausea and Vomiting (N/V). [facility] dicyclomine 10 mg capsule 09-25 00:00: 00 Yes [id number] 10mg Take 1 capsule by mouth 4 (four) times daily. [facility] proMETHazin e 25 mg tablet 09-25 00:00: 00 Yes [id number] 25mg Take 1 tablet by mouth every 6 (six) hours as needed for Nausea and Vomiting (N/V). [facility] traMADoL 50 mg tablet 09-25 00:00: 00 10-03 04:59 :00 No [id number] 50mg Take 1 tablet by mouth every 6 (six) hours as needed for Pain (scale 7-10) for up to 7 days. Indication s: acute pain [facility] metoprolol tartrate 50 mg tablet 08-09 00:00: 00 Yes [id number] 50mg Take 1 tablet by mouth 2 (two) times daily. [facility] metoprolol tartrate 50 mg tablet 08-09 00:00: 00 Yes [id number] 50mg Take 1 tablet by mouth 2 (two) times daily. [facility] metoprolol tartrate 50 mg tablet 08-09 00:00: 00 Yes [id number] 50mg Take 1 tablet by mouth 2 (two) times daily. [facility] metoprolol tartrate 50 mg tablet 08-09 00:00: 00 Yes [id number] 50mg Take 1 tablet by mouth 2 (two) times daily. [facility] metoprolol tartrate 50 mg tablet 06-10 15:26: 10 06-10 00:00 :00 No 50mg Take 50 mg by mouth 2 (two) times daily. Take 1 tablet in the morning and one half in the evening [facility] ALBUTEROL SULFATE INHALE 06-10 15:09: 34 Yes Inhale. [facility] acetaminoph en (TYLENOL ORAL) 06-10 15:09: 34 Yes Take by mouth. [facility] ALBUTEROL SULFATE INHALE 06-10 15:09: 34 Yes Inhale. [facility] acetaminoph en (TYLENOL ORAL) 06-10 15:09: 34 Yes Take by mouth. [facility] ALBUTEROL SULFATE INHALE 06-10 15:09: 34 Yes Inhale. [facility] acetaminoph en (TYLENOL ORAL) 06-10 15:09: 34 Yes Take by mouth. [facility] ALBUTEROL SULFATE INHALE 06-10 15:09: 34 Yes Inhale. [facility] acetaminoph en (TYLENOL ORAL) 06-10 15:09: 34 Yes Take by mouth. [facility] ALBUTEROL SULFATE INHALE 06-10 15:09: 34 Yes Inhale. [facility] acetaminoph en (TYLENOL ORAL) 06-10 15:09: 34 Yes Take by mouth. [facility] ALBUTEROL SULFATE INHALE 06-10 15:09: 34 Yes Inhale. [facility] acetaminoph en (TYLENOL ORAL) 06-10 15:09: 34 Yes Take by mouth. [facility] omeprazole 10 mg capsule 06-10 15:06: 28 Yes 40mg Take 40 mg by mouth daily. [facility] omeprazole 10 mg capsule 06-10 15:06: 28 Yes 40mg Take 40 mg by mouth daily. [facility] omeprazole 10 mg capsule 06-10 15:06: 28 Yes 40mg Take 40 mg by mouth daily. [facility] omeprazole 10 mg capsule 06-10 15:06: 28 Yes 40mg Take 40 mg by mouth daily. [facility] omeprazole 10 mg capsule 06-10 15:06: 28 Yes 40mg Take 40 mg by mouth daily. [facility] omeprazole 10 mg capsule 06-10 15:06: 28 Yes 40mg Take 40 mg by mouth daily. [facility] metoprolol tartrate 50 mg tablet 06-10 00:00: 00 Yes [id number] 50mg Take 1 tablet by mouth 2 (two) times daily. [facility] metoprolol tartrate 50 mg tablet 06-10 00:00: 00 Yes [id number] 50mg Take 1 tablet by mouth 2 (two) times daily. [facility] metoprolol tartrate 50 mg tablet 06-10 00:00: 00 08-09 00:00 :00 No [id number] 50mg Take 1 tablet by mouth 2 (two) times daily. [facility] Vital Signs Vital Name Observation Time Observation Value Comments S ource Body temperature 2021-09-25 07:54:00 37 Josette [facility] Systolic blood pressure 2021-09-25 07:46:00 119 mm[Hg] [facility] Diastolic blood pressure 2021-09-25 07:46:00 81 mm[Hg] [facility] Heart rate 2021-09-25 07:46:00 79 /min [facility] Respiratory rate 2021-09-25 07:46:00 19 /min [facility] Oxygen saturation in Arterial blood by Pulse oximetry 2021-09-25 06:15:00 98 /min [facility] Body height 2021-09-25 03:29:00 154.9 cm [facility] Body weight 2021-09-25 03:29:00 127.007 kg [facility] BMI 2021-09-25 03:29:00 52.91 kg/m2 [facility] Systolic blood pressure 2021-06-10 21:13:00 146 mm[Hg] [facility] Diastolic blood pressure 2021-06-10 21:13:00 83 mm[Hg] [facility] Heart rate 2021-06-10 21:05:00 71 /min [facility] Body height 2021-06-10 21:05:00 154.9 cm [facility] Body weight 2021-06-10 21:05:00 128.595 kg [facility] BMI 2021-06-10 21:05:00 53.57 kg/m2 [facility] Oxygen saturation in Arterial blood by Pulse oximetry 2021-06-10 21:05:00 94 /min [facility] Procedures Procedure Date / Time Performed Performing Clinicia n Source REFERRAL- REQUEST/RESPONSE 2022-12-13 05:01:00 Doctor Unassigned, [place] [facility] POCT GLUCOSE (AUTOMATED) 2021-09-25 08:06:00 Michael Mueller [facility] CT ABDOMEN PELVIS W CONTRAST 2021-09-25 06:00:00 Michael Mueller [facility] URINALYSIS 2021-09-25 05:32:00 [facility] LIPASE 2021-09-25 04:22:00 [facility] TROPONIN I 2021-09-25 04:22:00 Mueller[facility] almendarez [facility] COMP. METABOLIC PANEL ([id number]) 2021-09-25 04:22:00 Michael Mueller [facility] CBC WITH DIFF 2021-09-25 04:22:00 Michael Mueller [facility] NOTICE OF PRIVACY PRACTICES 2021-09-25 02:57:58 Doctor Unassigned, [place] [facility] CONSENT/REFUSAL FOR DIAGNOSIS AND TREATMENT 2021-09-25 02:57:17 Doctor Unassigned, [place] [facility] Encounters Start Date/Time End Date/Time Encounter Type Admission Type Attending Clinicians Care Facility Care Department Encounter ID Source 2023-04-22 17:01:07 2023-04-22 17:01:07 Outpatient [facility] [id number] Jose Arnold 2023-03-19 16:21:05 2023-03-19 16:21:05 Outpatient [facility] [id number] Jose Arnold 2022-12-29 00:00:00 2022-12-29 00:00:00 Letter (Out) Janneth Yang [facility] 1.2.840.114 350.1.13.10 4.2.7.2.686 [id number] [facility] 2022-12-26 16:18:29 2022-12-26 16:18:29 Outpatient [facility] [id number] Jose Arnold 2022-12-13 00:00:00 2022-12-13 00:00:00 Orders Only Doctor Unassigned, [place] [facility] 1.2.840.114 350.1.13.10 4.2.7.2.686 [id number] [facility] 2022-12-12 16:24:25 2022-12-12 16:24:25 Outpatient [facility] [id number] Jose Wilson [place] 2022-12-11 14:15:09 2022-12-11 14:15:09 Outpatient [facility] [id number] Jose Wilson [place] 2022-11-08 14:10:03 2022-11-08 14:10:03 Outpatient [facility] [id number] Jose Arnold 2022-09-20 13:41:38 2022-09-20 13:41:38 Outpatient [facility] [id number] Jose Wilson [place] 2022-08-07 16:55:08 2022-08-07 16:55:08 Outpatient [facility] [id number] Jose Wilson [place] 2022-03-03 15:47:22 2022-03-03 15:47:22 Outpatient [facility] [id number] Jose Wilson [place] 2021-11-07 08:30:00 2021-11-07 08:30:00 Outpatient SOUMYA KNOWLES [facility] [id number] [facility] 2021-09-24 22:32:00 2021-09-25 03:49:00 Emergency X MICHAEL MUELLER [facility] ERT [id number] [facility] 2021-09-24 22:32:00 2021-09-25 03:49:00 Emergency Michael Mueller [facility] 1..840.114 350.1.13.10 4.2.7.2.686 [id number] [facility] 2021-08-06 00:00:00 2021-08-06 00:00:00 [facility]114 350.1.13.10 4.2.7.2.686 [id number] [facility] 2021-07-09 13:00:00 2021-07-09 13:00:00 Outpatient R [facility] [id number] [facility] 2021-07-01 10:30:00 2021-07-01 10:30:00 Outpatient R CHERYL ESPINOZA [facility] [id number] [facility] 2021-06-30 00:00:00 2021-06-30 00:00:00 Telephone Cheryl Espinoza [facility] [employer] [facility] 1.840.114 350.1.13.10 4.2.7.2.686 [id number] [facility] 2021-06-10 15:20:00 2021-06-10 15:31:06 Outpatient R EVARISTO GABRIEL [facility] [id number] [facility] 2021-06-10 15:20:00 2021-06-10 15:31:06 [facility] 1..840.114 350.1.13.10 4.2.7.2.686 [id number] [facility] 2021-06-10 00:00:00 2021-06-10 00:00:00 Orders Only Doctor Unassigned, [place] [facility] 1.840.114 350.1.13.10 4.2.7.2.686 [id number] [facility] 2021-04-26 10:18:00 2021-04-27 16:12:00 Outpatient X CHARLOTTE MURPHY [facility] [id number] [facility] 2021-04-26 10:18:00 2021-04-27 16:12:00 [facility] [id number] [facility] 2021-04-26 10:18:00 2021-04-27 16:12:00 Emergency Mitra Barajas [facility] 1.2.840.114 350.1.13.10 4.2.7.2.686 [id number] [facility] 2020-12-13 15:00:00 2020-12-13 15:09:50 [id number] 2020-11-22 15:20:00 2020-11-22 15:09:34 Outpatient REBEKA MAHAN [facility] [id number] [facility] 2019-01-05 22:28:10 2019-01-05 23:35:00 Emergency Anni Mcfadden [facility] 1.2.840.114 350.1.13.10 4.2.7.2.686 [id number] [facility] 2018-12-14 06:51:33 2018-12-14 23:59:00 Hospital Encounter Soumya Garland [facility] 1.2.840.114 350.1.13.10 4.2.7.2.686 [id number] [facility] Results Test Description Test Time Test Comments Results Result Co mments Source CBC W/AUTO DIFF WITH [id number] 05:19:43* Test Item Value Reference Range Interpretation Comme nts WBC (test code = 1001) 6.7 K/UL 3.5-11.0 RBC (test code = 1002) 5.00 M/UL 3.80-5.40 HEMOGLOBIN (test code = 1003) 15.5 G/DL 11.5-15.5 HEMATOCRIT (test code = 1004) 44.5 % 34.0-45.0 MCV (test code = 1005) 89.0 fL 80.0-99.0 MCH (test code = 1006) 31.0 PG 25.0-33.0 MCHC (test code = 1007) 34.8 G/DL 31.0-36.0 RDW (test code = 1038) 13.6 % 11.5-15.0 NEUTROPHILS (test code = 1008) 52.4 % LYMPHOCYTES (test code = 1010) 37.6 % MONOCYTES (test code = 1011) 6.6 % EOSINOPHILS (test code = 1012) 2.2 % BASOPHILS (test code = 1013) 0.9 % IMMATURE GRANULOCYTES (test code = 1036) 0.3 % NUCLEATED RBCS (test code = 1065) 0.0 /100 WBC'S See_Comment [Automated GOODWINa ge] The system which generated this result transmitted reference range: 0.0. The reference range was not used to interpret this result as normal/abnormal. PLATELET COUNT (test code = 1015) 213 K/UL 130-400 ABSOLUTE NEUTROPHILS (test code = 1066) 3.52 K/UL 1.50-7.50 ABSOLUTE LYMPHOCYTES (test code = 1067) 2.52 K/UL 1.00-4.00 ABSOLUTE MONOCYTES (test code = 1068) 0.44 K/UL 0.20-1.00 ABSOLUTE EOSINOPHILS (test code = 1040) 0.15 K/UL 0.00-0.50 ABSOLUTE BASOPHILS (test code = 1069) 0.06 K/UL 0.00-0.20 ABS IMMATURE GRANULOCYTES (test code = 1020) 0.02 K/UL 0.00-0.10 ABS NUCLEATED RBCS (test code = 27119) 0.04 K/UL 0.00-0.11 POCT GLUCOSE (AUTOMATED)2021-09-25 08:08:54* Test Item Value Reference Range Interpretation Comme nts POCT GLU (test code = 5767305722) 102 mg/dL 70-110 Lab Interpretation (test cod e = 31571-1) [facility] [id number] 05:03:02* Test Item Value Reference Range Interpretation Comments TROPONIN I (test code = 6497957349) 0.001 ng/mL See_Comment [Automated message] The system which generated this result transmitted reference range: <=0.034. The reference range was not used to interpret this result as normal/abnormal. MARY (test code = MARY) Reference (Normal) Range (defined by the 99th percentile reference [...] to patient's use of biotin. Lab Interpretation (test code = 67824-5) Normal [facility]OLIC PANEL (20390)2021-09-25 04:52:19* Test Item Value Reference Range Interpretation Comme nts NA (test code = 6376644394) 140 mmol/L 135-145 K (test code = 3564783561) 4.5 mmol/L 3.5-5.0 CL (test code = 5770105317) 103 mmol/L 98-108 CO2 TOTAL (test code = 6057389892) 25 mmol/L 23-31 AGAP (test code = 8784150102) 2-16 BUN (test code = 8782862261) 13 mg/dL 7-23 GLUCOSE (test code = 3599952983) 141 mg/dL 70-110 H CREATININE (test code = 3918201744) 0.60 mg/dL 0.50-1.04 TOTAL BILI (test code = 5384278864) 0.6 mg/dL 0.1-1.1 CALCIUM (test code = 4040359878) 9.4 mg/dL 8.6-10.6 T PROTEIN (test code = 4169902715) 8.1 g/dL 6.3-8.2 ALBUMIN (test code = 6156601914) 4.7 g/dL 3.5-5.0 ALK PHOS (test code = 0581658766) 98 U/L 34-122 ALTv (test code = 1742-6) 25 U/L 5-35 AST(SGOT) (test code = 1432253294) 27 U/L 13-40 eGFR (test code = 9947975146) mL/min/1.73m2 MARY (test code = MARY) Association of [...] or abnormalities in imaging tests). Lab Interpretation (test code = 92570-4) [facility]normal [facility] 04:51:39* Test Item Value Reference Range Interpretation Comme nts LIPASE (test code = 9581148005) 118 U/L 0-220 Lab Interpretation (test cod e = 57270-1) Normal [facility] [id number] 04:38:15* Test Item Value Reference Range Interpretation Comme nts WBC (test code = 6690-2) See_Comment H [Automated message] The system which generated this result transmitted reference range: 4.30 - 11.10 10*3/?L. The reference range was not used to interpret this result as normal/abnormal. RBC (test code = 789-8) See_Comment H [Automated message] The system which generated this result transmitted reference range: 3.93 - 5.25 10*6/?L. The reference range was not used to interpret this result as normal/abnormal. HGB (test code = 718-7) 16.9 g/dL 11.6-15.0 H HCT (test code = 4544-3) 49.7 % 35.7-45.2 H MCV (test code = 787-2) 88.9 fL 80.6-95.5 MCH (test code = 785-6) 30.2 pg 25.9-32.8 MCHC (test code = 786-4) 34.0 g/dL 31.6-35.1 RDW-SD (test code = 01307-8) 41.5 fL 39.0-49.9 RDW-CV (test code = 788-0) 12.8 % 12.0-15.5 PLT (test code = 777-3) See_Comment [Automated message] The system which generated this result transmitted reference range: 166 - 358 10*3/?L. The reference range was not used to interpret this result as normal/abnormal. MPV (test code = 66857-4) 11.7 fL 9.5-12.9 NRBC/100 WBC (test code = 2979001849) See_Comment [Automated message] The system which generated this result transmitted reference range: 0.0 - 10.0 /100 WBCs. The reference range was not used to interpret this result as normal/abnormal. NRBC x10^3 (test code = 4759159565) <0.01 See_Comment [Automated message] The system which generated this result transmitted reference range: 10*3/?L. The reference range was not used to interpret this result as normal/abnormal. GRAN MAT (NEUT) % (test code = 770-8) 78.8 % IMM GRAN % (test code = 2335382179) 0.30 % LYMPH % (test code = 736-9) 14.7 % MONO % (test code = 5905-5) 5.0 % EOS % (test code = 713-8) 0.6 % BASO % (test code = 706-2) 0.6 % GRAN MAT x10^3(ANC) (test code = 0564389684) 10.01 10*3/uL 1.88-7.09 H IMM GRAN x10^3 (test code = 1957736055) 0.04 10*3/uL 0.00-0.06 LYMPH x10^3 (test code = 731-0) 1.86 10*3/uL 1.32-3.29 MONO x10^3 (test code = 742-7) 0.63 10*3/uL 0.33-0.92 EOS x10^3 (test code = 711-2) 0.08 10*3/uL 0.03-0.39 BASO x10^3 (test code = 704-7) 0.07 10*3/uL 0.01-0.07 Lab Interpretation (test code = 70651-3) Abnormal [facility] AUTOIMMUNE AB [id number] 08:39:16* Test Item Value Reference Range Interpretation Comme nts ANTI-NUCLEAR ANTIBODIES (test code = 3506) NEGATIVE NEGATIVE Methodology is I ndirect Immunofluorescent Assay (IFA) with a titering system using [id number] cells (Hep2 cells transfected with SS-A/Ro). HIV 1/2 4TH GEN, RFLX [id number] 03:26:41* Test Item Value Reference Range Interpretation Comme nts HIV 1/2 4TH GEN, RFLX CONF (test code = 3514) NON-REACTIVE NON-REACTIVE UNLESS OTHERWISE INDICATED, ALL TESTING PERFORMED [facility] [address] [place] [address], [place] [address] GLOBAL SAFETY OFFICER: RAMIREZ CERON M.D. CLIA NUMBER [id number] [facility] [place]. [id number] TSH, THIRD [id number] 02:23:43* Test Item Value Reference Range Interpretation Comme nts TSH, THIRD GENERATION (test code = 2821) 3.790 UIU/ML 0.400-4.100 RHEUMATOID FACTOR, [id number] 02:15:22* Test Item Value Reference Range Interpretation Comme nts RHEUMATOID FACTOR, QUANT (te st code = 3502) <10 IU/ML <14 LIPID [id number] 02:15:07* Test Item Value Reference Range Interpretation Comme nts CHOLESTEROL (test code = 2210) 215 MG/DL <200 H TRIGLYCERIDES (test code = 2232) 187 MG/DL <150 H HDL CHOLESTEROL (test code = 2220) 48 MG/DL >39 CALC LDL CHOL (test code = 2237) 135 MG/DL <100 H NOTE: CALCULATED LDL IS BASED ON ERICKA-SINGH METHOD WHICHINCLUDES ADJUSTABLE TRIGLYCERIDE:VLDL CHOLESTEROL RATIO.THIS FACTOR VARIES BY MEASURED TRIGLYCERIDE AND NON-HDLCHOLESTEROL CONCENTRATIONS WITH INCREASED CALCULATED LDL SEENIN HIGHER TRIGLYCERIDE OR LOWER NON-HDL SPECIMENS. FOR MOREINFORMATION, SEE CLIENT ANNOUNCEMENT AT [email or web address] RISK RATIO LDL/HDL (test code = 2238) 2.81 RATIO <3.22 COMPREHENSIVE METABOLIC [id number] 02:15:07* Test Item Value Reference Range Interpretation Comme nts GLUCOSE (test code = 2217) 98 MG/DL 70-99 BUN (test code = 2208) 9 MG/DL 6-20 CREATININE (test code = 2214) 0.61 MG/DL 0.60-1.30 eGFR (2020 CKD-EPI) (test code = 22284) 105 ML/MIN/1.73 >60 CALC BUN/CREAT (test code = 2235) 15 RATIO 6-28 SODIUM (test code = 223) 142 MEQ/L 133-146 POTASSIUM (test code = 2228) 4.4 MEQ/L 3.5-5.4 CHLORIDE (test code = 2215) 103 MEQ/L 95-107 CARBON DIOXIDE (test code = 2206) 20 MEQ/L 19-31 CALCIUM (test code = 2209) 9.7 MG/DL 8.5-10.5 PROTEIN, TOTAL (test code = 222) 7.5 G/DL 6.1-8.3 ALBUMIN (test code = 220) 4.3 G/DL 3.5-5.2 CALC GLOBULIN (test code = 2240) 3.2 G/DL 1.9-3.7 CALC A/G RATIO (test code = 2234) 1.3 RATIO 1.0-2.6 BILIRUBIN, TOTAL (test code = 2206) 0.6 MG/DL See_Comment [Automated nc ssage] The system which generated this result transmitted reference range: <=1.2. The reference range was not used to interpret this result as normal/abnormal. ALKALINE PHOSPHATASE (test code = 4) 97 U/L 40-136 AST (test code = 8) 19 U/L 9-40 ALT (test code = 9) 25 U/L 5-40 CBC W/AUTO DIFF WITH [id number] 04:28:25* Test Item Value Reference Range Interpretation Comme nts WBC (test code = 1001) 6.1 K/UL 3.5-11.0 RBC (test code = 1002) 5.12 M/UL 3.80-5.40 HEMOGLOBIN (test code = 1003) 15.6 G/DL 11.5-15.5 H HEMATOCRIT (test code = 1004) 47.7 % 34.0-45.0 H MCV (test code = 1005) 93.2 fL 80.0-99.0 MCH (test code = 1006) 30.5 PG 25.0-33.0 MCHC (test code = 1007) 32.7 G/DL 31.0-36.0 RDW (test code = 1038) 13.0 % 11.5-15.0 NEUTROPHILS (test code = 1008) 57.8 % LYMPHOCYTES (test code = 1010) 31.1 % MONOCYTES (test code = 1011) 7.2 % EOSINOPHILS (test code = 1012) 2.6 % BASOPHILS (test code = 1013) 1.0 % IMMATURE GRANULOCYTES (test code = 1036) 0.3 % NUCLEATED RBCS (test code = 1065) 0.0 /100 WBC'S See_Comment [Automated messa ge] The system which generated this result transmitted reference range: 0.0. The reference range was not used to interpret this result as normal/abnormal. PLATELET COUNT (test code = 1015) 214 K/UL 130-400 ABSOLUTE NEUTROPHILS (test code = 1066) 3.51 K/UL 1.50-7.50 ABSOLUTE LYMPHOCYTES (test code = 1067) 1.89 K/UL 1.00-4.00 ABSOLUTE MONOCYTES (test code = 1068) 0.44 K/UL 0.20-1.00 ABSOLUTE EOSINOPHILS (test code = 1040) 0.16 K/UL 0.00-0.50 ABSOLUTE BASOPHILS (test code = 1069) 0.06 K/UL 0.00-0.20 ABS IMMATURE GRANULOCYTES (test code = 1020) 0.02 K/UL 0.00-0.10 ABS NUCLEATED RBCS (test code = 86896) 0.00 K/UL 0.00-0.11"
[2023-05-10 01:52] LABS: Absolute Lymphocytes (CBC) 1.6 K/uL (0.7-4.9); Hematocrit 45.9 % (36.0-45.0); Lymphocytes % 26.2 % (15.3-44.8); MCV 90.7 fL (80-100); MPV 9.7 fL (7.6-11.3); Platelets 205 thou/uL (152-406); RBC Red Blood Cell Count 5.06 M/uL (3.86-4.86)
[2023-05-10 02:16] LABS: Albumin 3.4 g/dL (3.4-5.0); Bilirubin Total 0.5 mg/dL (0.2-1.0); Protein, Total 7.7 g/dL (6.4-8.2)
[2023-05-10 02:17] LABS: Potassium 3.9 mEq/L (3.5-5.1)
--- NOTE | 2023-05-10 04:09 | EDPHYS ---
Physician Documentation [facility] Name: Nat Reilly Age: 57 yrs Sex: Female : 1965 Arrival Date: 05/10/2023 Time: 01:18 Bed 18 Private MD: ED Physician David Sweeney HPI: 05/10 01:33 This 57 yrs old Female presents to ER via Unassigned with complaints of ec2 Nausea/Vomiting. 01:33 Patient arrives today for evaluation of nausea and vomiting. Patient reports that she ec2 woke up this evening feeling nauseous and having bouts of vomiting. Patient also reports racing heart as well as palpitations. Patient reports no chest pain or difficulty breathing. Patient reports that she is concerned she is having a reaction to her new medication of magnesium. She states she took this approximately 8 hours prior to arrival. Denies any facial swelling or neck swelling or rashes.. Historical: - Allergies: 02:48 Amoxicillin; nw1 - Home Meds: 02:48 Metoprolol Tartrate Oral [Active]; nw1 - PMHx: 02:48 Anxiety; Hypertension; nw1 - Immunization history:: Adult Immunizations up to date, Client reports receiving the 2nd dose of the Covid vaccine, Last tetanus immunization: up to date . - Social history:: Smoking status: Patient denies any tobacco usage or history of. Patient/guardian denies using alcohol, street drugs, IV drugs, caffeine, over the counter diet medications, tobacco products. ROS: 01:33 Constitutional: as per hpi ec2 Exam: 01:33 Constitutional: GEN: NAD Head: atraumatic Eyes: EOMI Ears: External ears are ec2 normal. CV: regular rate LUNGS: no respiratory distress ABD: non-distended SKIN: no evidence of rashes MSK: no evidence of trauma NEURO: moves all extremities equally Vital Signs: 01:15 BP 182 / 95; Pulse 75; Resp 20; Pulse Ox 97% ; nw1 01:30 BP 155 / 94; Pulse 72; Resp 19; Pulse Ox 98% on R/A; nw1 01:45 BP 145 / 89; Pulse 70; Resp 19; Pulse Ox 98% on R/A; nw1 02:00 BP 140 / 86; Pulse 68; Resp 16; Pulse Ox 96% on R/A; nw 02:15 BP 146 / 82; Pulse 68; Resp 16; Pulse Ox 98% ; nw1 02:21 BP 140 / 86; Pulse 70; ec2 02:30 BP 162 / 91; Pulse 68; Resp 17; Pulse Ox 99% ; nw1 02:43 BP 177 / 76; Pulse 75; Resp 17; Temp 98.2(O); Pulse Ox 97% on R/A; Weight 128.82 kg; nw1 Height 5 ft. 1 in. ; 03:00 BP 138 / 81; Pulse 63; Pulse Ox 97% ; nw1 04:00 BP 133 / 81; Pulse 63; Pulse Ox 97% on R/A; nw1 02:43 Body Mass Index 53.66 (128.82 kg, 154.94 cm) nw1 Manti Coma Score: 01:15 Eye Response: spontaneous(4). Motor Response: obeys commands(6). Verbal Response: nw1 oriented(5). Total: 15. MDM: 01:33 Patient medically screened. ec2 01:33 ED course: Patient arrives today due to concern for nausea and vomiting. Examination ec2 remarkable for well-appearing nontoxic individual is otherwise in no acute distress. Will obtain lab work, treat the patient's symptoms with crystalloid and Zofran and reassess the patient. Currently considering gastroenteritis, ACS, anxiety.. 01:47 ED course: EKG independently reviewed and interpreted by me, shows normal sinus rhythm, ec2 rate of 73, no acute ST segment elevations, nonconcerning intervals.. 02:22 Data reviewed: vital signs. ED course: CBC is reassuring without leukocytosis, ec2 metabolic profile without electrolyte disturbances or renal abnormalities, lipase within normal ranges, troponin within normal ranges. . 04:07 ED course: On reassessment patient with improving symptoms. Will discharge home, return ec2 precautions given.. 05/10 01:33 Order name: CBC with Diff; Complete Time: 02:21 ec2 05/10 01:33 Order name: CMP; Complete Time: 02:21 ec2 05/10 01:33 Order name: Lipase; Complete Time: 02:22 ec2 05/10 01:33 Order name: Troponin HS; Complete Time: 02:22 ec2 05/10 01:47 Order name: CXR XRAY ec2 05/10 01:33 Order name: EKG; Complete Time: 01:34 ec2 05/10 01:33 Order name: IV Saline Lock; Complete Time: 02:25 ec2 05/10 01:33 Order name: Labs collected and sent; Complete Time: 02:25 ec2 05/10 01:33 Order name: EKG - Nurse/Tech; Complete Time: 02:00 ec2 Administered Medications: 02:38 Drug: Ativan IVP 1 mg IVP once Route: IVP; Site: right wrist; nw1 02:39 Drug: NS 0.9% IV 1000 ml IV at 1 bolus Per protocol; 1000 mL bolus Route: IV; Rate: 1 nw1 bolus; Site: right wrist; 02:39 Drug: Ondansetron IVP 4 mg IVP once; over 2 minutes Route: IVP; Site: right wrist; nw1 03:24 CANCELLED (Physician Discretion): potassium [id number] meq IV at calculated rate once; ec2 administer over 1-2 hours 03:24 CANCELLED (Physician Discretion): magnesium sulfate2 grams IVPB once over 30 mins ec2 04:00 Drug: Acetaminophen PO 1000 mg PO once Route: PO; nw1 Disposition Summary: 05/10/23 04:08 Discharge Ordered Notes: Location: Home ec2 Condition: Stable ec2 Diagnosis - Vomiting ec2 Followup: ec2 - With: Private Physician - When: - Reason: Recheck today's complaints Discharge Instructions: - Discharge Summary Sheet ec2 - Nausea and Vomiting, Adult ec2 Forms: - Medication Reconciliation Form ec2 - Thank You Letter ec2 - Antibiotic Education ec2 - Prescription Opioid Use ec2 - Patient Portal Instructions ec2 - Leadership Thank You Letter ec2 Signatures: Dispatcher [employer] EDMS David Sweeney MD MD ec2 Suzie Garzon RN RN nw1 Corrections: (The following items were deleted from the chart) 03:24 03:23 Potassium Chloride IV 20 mEq IV at calculated rate once; administer over 1-2 ec2 hours ordered. ec2 03:24 03:23 Magnesium Sulfate IVPB 2 grams IVPB once over 30 mins ordered. ec2 ec2 03:40 01:33 ED course: Patient arrives today due to concern for nausea and vomiting. ec2 Examination remarkable for well-appearing nontoxic individual is otherwise in no acute distress. Will obtain lab work, treat the patient's symptoms with crystalloid and Zofran and reassess the patient. Currently considering gastroenteritis, ACS, UTI.. ec2 03:54 03:22 ED course: EKG independently reviewed and interpreted by me, shows normal sinus ec2 rhythm, rate of 92, motion artifact noted, no acute ST segment elevations, QTc prolongation at 507. Will defer giving her any additional QTc prolonging agents. Will also give her potassium and magnesium. . ec2 04:08 03:23 Critical care time: Bedside Care: 30 minutes, Consultation: 5 minutes. Total ec2 time: 35 minutes ec2
--- NOTE | 2023-05-10 04:09 | ER ---
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 Coronavirus screen: nw1 Vaccine status: Patient reports receiving the 2nd dose of the covid vaccine. Client denies travel out of the [place] in the last 14 days. At this time, the client does not indicate any symptoms associated with coronavirus-19. Ebola Screen: Patient negative for fever greater than or equal to 101.5 degrees Fahrenheit, and additional compatible Ebola Virus Disease symptoms Patient denies exposure to infectious person. Patient denies travel to an Ebola-affected area in the 21 days before illness onset. No symptoms or risks identified at this time. Initial Sepsis Screen: Does the patient meet any 2 criteria? No. Patient's initial sepsis screen is negative. Does the patient have a suspected source of infection? No. Patient's initial sepsis screen is negative. Risk Assessment: Do you want to hurt yourself or someone else? Patient reports no desire to harm self or others. Onset of symptoms was May 09, 2023. 02:43 Method Of Arrival: EMS: [facility] nw1 02:43 Acuity: KIRT 3 nw1 Triage Assessment: 02:48 General: Appears uncomfortable, obese, Behavior is cooperative, anxious, crying. Pain: nw1 Complains of pain in forehead. GI: Reports nausea, vomiting, x2 bell captain. Historical: - Allergies: 02:48 Amoxicillin; nw1 - Home Meds: 02:48 Metoprolol Tartrate Oral [Active]; nw1 - PMHx: 02:48 Anxiety; Hypertension; nw1 - Immunization history:: Adult Immunizations up to date, Client reports receiving the 2nd dose of the Covid vaccine, Last tetanus immunization: up to date . - Social history:: Smoking status: Patient denies any tobacco usage or history of. Patient/guardian denies using alcohol, street drugs, IV drugs, caffeine, over the counter diet medications, tobacco products. Screenin:15 [facility] ED Fall Risk Assessment (Adult) History of falling in the last 3 months, nw1 including since admission No falls in past 3 months (0 pts) Confusion or Disorientation No (0 pts) Intoxicated or Sedated No (0 pts) Impaired Gait No (0 pts) Mobility Assist Device Used No (0 pt) Altered Elimination No (0 pt) Score/Fall Risk Level 0 - 2 = Low Risk. Abuse screen: Denies threats or abuse. Denies injuries from another. Nutritional screening: No deficits noted. Tuberculosis screening: No symptoms or risk factors identified. Assessment: 01:15 General: Appears uncomfortable, obese, Behavior is anxious. GI: Abdomen is obese. nw1 Vital Signs: 01:15 BP 182 / 95; Pulse 75; Resp 20; Pulse Ox 97% ; nw1 01:30 BP 155 / 94; Pulse 72; Resp 19; Pulse Ox 98% on R/A; nw1 01:45 BP 145 / 89; Pulse 70; Resp 19; Pulse Ox 98% on R/A; nw1 02:00 BP 140 / 86; Pulse 68; Resp 16; Pulse Ox 96% on R/A; nw1 02:15 BP 146 / 82; Pulse 68; Resp 16; Pulse Ox 98% ; nw1 02:21 BP 140 / 86; Pulse 70; ec2 02:30 BP 162 / 91; Pulse 68; Resp 17; Pulse Ox 99% ; nw1 02:43 BP 177 / 76; Pulse 75; Resp 17; Temp 98.2(O); Pulse Ox 97% on R/A; Weight 128.82 kg; nw1 Height 5 ft. 1 in. ; 03:00 BP 138 / 81; Pulse 63; Pulse Ox 97% ; nw1 04:00 BP 133 / 81; Pulse 63; Pulse Ox 97% on R/A; nw1 02:43 Body Mass Index 53.66 (128.82 kg, 154.94 cm) nw1 Desiree Coma Score: 01:15 Eye Response: spontaneous(4). Motor Response: obeys commands(6). Verbal Response: nw1 oriented(5). Total: 15. ED Course: 01:15 Arm band placed on left wrist. nw1 01:15 Patient has correct armband on for positive identification. Placed in gown. Bed in low nw1 position. Call light in reach. Side rails up X2. Provided Education on: POC. Client placed on continuous cardiac and pulse oximetry monitoring. NIBP monitoring applied. architecture drafter on. Pulse ox on. Door closed. Noise minimized. Lights dimmed. Warm blanket given. 01:15 No provider procedures requiring assistance completed. Inserted saline lock: 20 gauge nw1 in right forearm, using aseptic technique. Blood collected. 01:32 Patient arrived in ED. pf1 01:33 David Sweeney MD is Attending Physician. ec2 02:25 Suzie Garzon, RN is Primary Nurse. nw1 02:28 CXR XRAY In Process Unspecified. EDMS 02:48 Triage completed. nw1 04:00 IV discontinued, intact, bleeding controlled, No redness/swelling at site. Pressure nw1 dressing applied. Administered Medications: 02:38 Drug: Ativan IVP 1 mg IVP once Route: IVP; Site: right wrist; nw1 02:39 Drug: NS 0.9% IV 1000 ml IV at 1 bolus Per protocol; 1000 mL bolus Route: IV; Rate: 1 nw1 bolus; Site: right wrist; 02:39 Drug: Ondansetron IVP 4 mg IVP once; over 2 minutes Route: IVP; Site: right wrist; nw1 03:24 CANCELLED (Physician Discretion): potassium [id number] meq IV at calculated rate once; ec2 administer over 1-2 hours 03:24 CANCELLED (Physician Discretion): magnesium sulfate2 grams IVPB once over 30 mins ec2 04:00 Drug: Acetaminophen PO 1000 mg PO once Route: PO; nw1 Medication: 01:15 VIS not applicable for this client. nw1 Outcome: 04:00 Discharged to home ambulatory, nw1 04:00 Condition: stable 04:00 Discharge instructions given to patient, 04:08 Discharge ordered by . ec2 04:49 Patient left the ED. nw1 Signatures: Dispatcher [employer] Mitra Zelaya RN RN pf1 David Sweeney MD MD ec2 Suzie Garzon RN RN nw1
[2023-05-10 05:44] VITALS: BP 133/81; TEMP 98.2; O2SAT 97
--- NOTE | 2023-05-11 12:15 | RAD REPORT ---
EXAM DESCRIPTION: XR Chest, 1 View CLINICAL HISTORY: The patient is 57 years old and is Female; CHEST PAIN TECHNIQUE: Frontal view of the chest. COMPARISON: No relevant prior studies available. FINDINGS: Lungs: Mildly prominent interstitial markings. No consolidation. Pleural space: Unremarkable. No pneumothorax. Heart: Unremarkable. Mediastinum: Unremarkable. Normal mediastinal contour. Bones/joints: No acute findings. IMPRESSION: Mildly prominent interstitial markings. No consolidation. Electronically signed by: Enoc Birch MD 05/10/2023 04:25 AM MANAGER DRUG Due to temporary technical issues with the PACS/Fluency reporting system, reports are being signed by the in house radiologists without review as a courtesy to insure prompt reporting. The interpreting radiologist is fully responsible for the content of the report.
== END ==
LOC: ER 01:18
DX: R11.10 Vomiting, unspecified (principal); I10 Essential (primary) hypertension; Z88.1 Allergy status to other antibiotic agents
CPT/HCPCS: 93005; 85025; 36415; 84484; 83690; 80053; 71045; 96375; 96374; 99285; J2405; J7030

== ENCOUNTER 2023-12-13 18:08 | Emergency (ER) | payer OTHER ==
--- OUTSIDE RECORDS SUMMARY | 2023-12-13 18:14 | XMS REPORT | Continuity of Care Document ---
Author Name Unknown Address [address] [facility] [place]. [address] [place] [address] [facility] Address [address] [facility] [place]. [address] [place] [address] Care Team Providers Care Demurrage Clerk Name Role Phone JOSE Wilson [facility] Care Physician Unavailable CARLOS ALBERTO COBB Attending Clinician Unava ilBHUMIKA Ortez Attending Clinician Unavaila BHUMIKA Griffith Attending Clinician Unavaila Janneth Prince Attending Clinician [phone] Doctor Unassigned, Emlyn Attending Clinician U shaheenailSOUMYA Moore Attending Clinician Unavailab MICHAEL Henry Attending Clinician Unavailable Michael Riley Attending Clinician [phone] Evaristo Garbiel MD Attending Clinician [phone] CHERYL ESPINOZA Attending Clinician Unavail able Cheryl Villanueva Attending Clinician + EVARISTO GABRIEL Attending Clinician Unavailable CHARLOTTE MURPHY Attending Clinician Unavailable Karl RAMIREZ, Mitra Campos Attending Clinician [phone] Charlotte Murphy MD Attending Clinician [phone] REBEKA AG Attending Clinician Unavail able Anni Simon Attending Clinician [phone] Soumya Stanton Attending Clinician MICHAEL MUELLER Admitting Clinician Unavailable CHARLOTTE MURPHY Admitting Clinician Unavailable Charlotte Murphy MD Admitting Clinician Payers Payer Name Policy Type Policy Number Effective Date Expirati on Date Source [employer] 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 [place] 9 [id number] 2023 00:00:00 [employer] 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 OF 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 [id number] 2023 00:00:00 MEDICAID ALI[place] PENDING PENDING 2021 00:00:00 Problems Condition Name Condition Details Condition Category Status Onset Date Resolution Date Last Treatment Date Treating Clinician Comments Source Dyslipidem ia Dyslipidem ia Disease Active 2020-05 00:00: 00 [facility] Left arm pain Left arm pain Disease Active 2020-05 00:00: 00 [facility] Atypical chest pain Atypical chest pain Disease Active 2020-05 00:00: 00 [facility] BMI 50.0-59.9, adult BMI 50.0-59.9, adult Disease Active 11-29 00:00: 00 [facility] Encounter for surveillan ce of contracept jacqueline, unspecifie d contracept alycia Encounter for surveillan ce of contracept jacqueline, unspecifie d contracept alycia Disease Active 11-29 00:00: 00 [facility] Well woman exam Well woman exam Disease Active 11-29 00:00: 00 [facility] Essential hypertensi on Essential hypertensi on Disease Active 02-05 00:00: 00 [facility] Breast tenderness in female Breast tenderness in female Disease Active 06-12 00:00: 00 [facility] Generalize d anxiety disorder Generalize d anxiety disorder Disease Active 06-12 00:00: 00 [facility] Encounter for routine gynecologi yady examinatio n Encounter for routine gynecologi yady examinatio n Disease Recurre nce 07-07 00:00: 00 Overview: Formattin g of this note might be different from the original. 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 [facility] Allergies, Adverse Reactions, Alerts Allergy Name Allergy Type Status Severity Reaction(s) Onset Date Inactive Date Treating Clinician Comments Source Amoxicil nikki-Pot Clavulan ate - Oral Propensi ty to adverse reaction to drug Active 12-19 00:00: 00 Jose Arnold Demetrio Inhibito rs Propensi ty to adverse reaction to drug Inactiv e 2016-05 00:00: 00 Jose Arnold NO KNOWN ALLERGIE S Drug Class Active 06-01 00:00: 00 [facility] No Known Allergie s Propensi ty to adverse reaction s Active 06-01 00:00: 00 [facility] Social History Social Habit Start Date Stop Date Quantity Comments Source Gender identity [facility] to SARS-CoV-2 (event) 2021-09-14 00:00:00 2021-09-24 22:26:00 Not sure [facility] Alcohol intake 2021-09-24 00:00:00 2021-09-24 00:00:00 Current non-drinker of alcohol (finding) [facility] History of Social function 2018-11-29 00:00:00 2018-11-29 00:00:00 [facility] Tobacco use and exposure 2017-02-06 00:00:00 2017-02-06 00:00:00 Smokeless tobacco non-user [facility] Sex Assigned At 1965 00:00:00 1965 00:00:00 [facility] Smoking Status Start Date Stop Date Source Never smoked tobacco [facility] Medications Ordered Medication Name Filled Medication Name Start Date Stop Date Current Medication? Ordering Clinician Indication Dosage Frequency Signature (SIG) Comments Components Source pantoprazol e 40 mg tablet,jessica yed release 09-14 00:00: 00 Yes mg Jose Arnold metoprolol tartrate 50 mg tablet 09-14 00:00: 00 Yes mg Jose Arnold duloxetine 30 mg capsule,del ayed release 09-14 00:00: 00 Yes mg Jose Arnold hydrochloro thiazide 12.5 mg tablet 09-14 00:00: 00 Yes mg Jose Arnold diclofenac 1 % topical gel 09-14 00:00: 00 Yes % Jose Arnold meloxicam 7.5 mg tablet 09-14 00:00: 00 Yes 1mg Jose Arnold dicyclomine 20 mg tablet 09-14 00:00: 00 Yes 1mg Jose Arnold pantoprazol e 40 mg tablet,jessica yed release 06-13 00:00: 00 Yes mg Jose Arnold metoprolol tartrate 50 mg tablet 06-13 00:00: 00 Yes mg Jose Arnold hydrochloro thiazide 12.5 mg tablet 06-13 00:00: 00 Yes mg Jose Arnold TAKE 1 TABLET DAILY. 06-13 00:00: 00 Yes 40 Jose Arnold METHYLPRED 4MG DPAK 06-13 00:00: 00 Yes Jose Arnold BROM/PSE/DM SYP 06-13 00:00: 00 Yes Jose Arnold USE DIRECTED TOPICALLY 06-13 00:00: 00 Yes Jose Arnold TAKE 10 ML EVERY 4-6 HOURS NEEDED 06-13 00:00: 00 09-14 00:00 :00 No [id number] Jose Arnold USE TOPICALLY DIRECTED. 06-13 00:00: 00 09-14 00:00 :00 No 4 Jose Arnold TAKE DIRECTED. 06-13 00:00: 00 09-14 00:00 :00 No 4 Jose Arnold PANTOPRAZOL E 40MG DR 2022-05 00:00: 00 Yes Jose Arnold TAKE 1 TABLET BY MOUTH ONCE DAILY 2022-05 00:00: 00 Yes Jose Arnold duloxetine 30 mg capsule,del ayed release 2022-05 00:00: 00 Yes mg Jose Arnold TAKE 1 TABLET BY MOUTH ONCE DAILY 2022-05 00:00: 00 Yes Jose F Clayton TAKE 1 TABLET DAILY. 2022-05 00:00: 00 09-14 00:00 :00 No 75 Jose F Clayton TAKE 1 TABLET TWICE DAILY. 2022-05 00:00: 00 09-14 00:00 :00 No 50 Jose F Clayton TAKE 1 TABLET DAILY IN THE MORNING. 2022-05 00:00: 00 09-14 00:00 :00 No 125 Jose F Clayton TAKE 1 TABLET DAILY. 2022-05 00:00: 00 09-14 00:00 :00 No 40 Jose F Clayton TAKE 1 TABLET DAILY IN THE MORNING. 12-26 00:00: 00 09-14 00:00 :00 No 125 Jose F Clayton TAKE 1 TABLET TWICE DAILY. 12-12 00:00: 00 09-14 00:00 :00 No 50 Jose Steve Arnold TAKE 1 TABLET DAILY. 12-12 00:00: 00 09-14 00:00 :00 No 25 Jose F Clayton TAKE 1 TABLET 3 TIMES DAILY. 11-08 00:00: 00 09-14 00:00 :00 No 1 Jose F Clayton TAKE 1 TO 2 CAPSULES 3 TIMES DAILY NEEDED. 11-08 00:00: 00 09-14 00:00 :00 No 100 Jose F Clayton TAKE 1 TABLET EVERY 8 HOURS WITH FOOD NEEDED. 11-08 00:00: 00 09-14 00:00 :00 No 800 Jose F Clayton METOPROL TAR 50MG 09-20 00:00: 00 Yes Jose F Clayton TAKE 1 TABLET DAILY. 09-20 00:00: 00 09-14 00:00 :00 No 25 Jose F Clayton TAKE 5 ML EVERY 4 TO 6 HOURS NEEDED. 09-20 00:00: 00 09-14 00:00 :00 No [id number] Jose F Clayton TAKE 1 TABLET AT BEDTIME. 09-20 00:00: 00 09-14 00:00 :00 No 10 Jose F Clayton TAKE ONE TABLET IN THE MORNING AND HALF A TABLET IN THE EVENING 08-27 00:00: 00 09-14 00:00 :00 No 50 Jose Steve Arnold INHALE 2 PUFFS EVERY 4-6 HOURS, SPACED 60 SECONDS APART. 08-27 00:00: 00 09-14 00:00 :00 No [id number] Jose F Clayton Dose Unknown 2021-05 00:00: 00 Yes Jose F Clayton Dose Unknown 2021-05 00:00: 00 Yes Jose F Clayton Dose Unknown 2021-05 00:00: 00 Yes Jose F Clayton TAKE 1 TABLET BY MOUTH TWICE DAILY WITH FOOD 2021-05 00:00: 00 Yes Jose F Clayton TAKE 1 TABLET BY MOUTH ONCE DAILY 2021-05 00:00: 00 Yes Jose F Clayton TAKE 1 TABLET EVERY 6 HOURS NEEDED. 2021-05 00:00: 00 09-14 00:00 :00 No Jose F Clayton TAKE 2 CAPSULES 3 TIMES DAILY. 2021-05 00:00: 00 09-14 00:00 :00 No Jose F Clayton 10 ML Q 4 TO 6 HOURS PRN COUGH FOR 5 DAYS 2021-05 00:00: 00 09-14 00:00 :00 No Jose F Clayton TAKE 2 TABS DAY 1 AND 1 TAB DAY 2-5 2021-05 00:00: 00 09-14 00:00 :00 No Jose F Clayton TAKE 1 TABLET DAILY DIRECTED. 2021-05 00:00: 00 09-14 00:00 :00 No Jose F Clayton TAKE 1 TABLET DAILY. 2021-05 00:00: 00 09-14 00:00 :00 No Jose F Clayton TAKE ONE TABLET IN THE MORNING AND HALF A TABLET IN THE EVENING 2021-05 00:00: 00 09-14 00:00 :00 No Jose F Clayton Dose Unknown 2021-05 00:00: 00 09-14 00:00 :00 No Jose F Clayton Dose Unknown 2022-1 2-16 00:00: 00 09-14 00:00 :00 No Jose Arnold TAKE 1 TABLET BID NEEDED 9-22 00:00: 00 09-14 00:00 :00 No Jose Arnold TAKE 1 TABLET BID NEEDED 17 00:00: 00 Yes 600 Jose Arnold Dose Unknown 8-11 00:00: 00 Yes Jose Arnold Dose Unknown 11-29 00:00: 00 Yes Jose Arnold Dose Unknown 11-29 00:00: 00 Yes Jose Arnold Dose Unknown 11-25 00:00: 00 Yes Jose Arnold Dose Unknown 11-25 00:00: 00 Yes Jose Arnold TAKE 1 TABLET TWICE DAILY WITH FOOD. 11-24 00:00: 00 Yes [id number] Jose Arnold TAKE 1 TABLET BID NEEDED 11-12 00:00: 00 Yes 600 Jose Arnold proMETHazin e (PHENERGAN) injection 25 mg 09-25 09:00: 00 09-25 08:07 :00 No 25mg 25 mg, Intramuscu lar, ONCE, 1 dose, On Thu09/25/21 at 0400, ROZ [facility] hyoscyamine sulfate (LEVSIN/SL) sublingual tablet 0.125 mg 09-25 09:00: 00 09-25 08:07 :00 No .125mg 0.125 mg, Sublingual , ONCE NOW, 1 dose, On Thu09/25/21 at 0400, Routine [facility] maalox:diph enhydrAMINE :lidocaine 2 % viscous 1:1:1 ([facility]) oral suspension 15 mL 09-25 08:15: 00 09-25 07:45 :00 No 15mL 15 mL, Oral, ONCE, 1 dose, On Thu09/25/21 at 0315, Routine [facility] metoclopram sacha HCl (REGLAN) injection 10 mg 09-25 07:30: 00 09-25 06:35 :00 No 10mg 10 mg, Slow IV Push, ONCE, 1 dose, On Thu09/25/21 at 0230, ROZ [facility] iopamidol (ISOVUE 370-500 mL) injection 120 mL 09-25 07:15: 00 09-25 05:59 :00 No [id number] 120mL 120 mL, Intravenou s, ONCE, 1 dose, On Thu09/25/21 at 0215, Routine [facility] FENTanyl PF (SUBLIMAZE (PF)) injection 50 mcg 09-25 05:15: 09-25 04:51 :00 No 50ug 50 mcg, Slow IV Push, ONCE, 1 dose, On Thu09/25/21 at 0015, STAT [facility] ondansetron (ZOFRAN (PF)) injection 4 mg 09-25 05:15: 09-25 04:51 :00 No 4mg 4 mg, Slow IV Push, ONCE, 1 dose, On Thu09/25/21 at 0015, ROZ [facility] NaCl 0.9% (NS) bolus infusion 1,000 mL 09-25 05:15: 09-25 08:50 :00 No 1000mL at 999 mL/hr, 1,000 mL, IV Infusion, ONCE, 1 dose, [facility] 09-25 00:00: 00 Yes [id number] 10mg Take 1 capsule by mouth 4 (four) times daily. [facility] proMETHazin e 25 mg tablet 09-25 00:00: 00 Yes [id number] 25mg Take 1 tablet by mouth every 6 (six) hours as needed for Nausea and Vomiting (N/V). [facility] traMADoL 50 mg tablet 09-25 00:00: 00 10-03 04:59 :00 No [id number] 50mg Take 1 tablet by mouth every 6 (six) hours as needed for Pain (scale 7-10) for up to 7 days. Indication s: acute pain [facility] Dose Unknown 14 00:00: 00 Yes Jose Arnold Dose Unknown 514 00:00: 00 Yes Jose Arnold metoprolol tartrate 50 mg tablet 08-09 00:00: 00 Yes [id number] 50mg Take 1 tablet by mouth 2 (two) times daily. [facility] metoprolol tartrate 50 mg tablet 08-06 00:00: 00 Yes mg Jose Arnold Dose Unknown 08-06 00:00: 00 Yes Jose Steve Arnold Dose Unknown 08-06 00:00: 00 Yes Jose Arnold Dose Unknown 08-06 00:00: 00 Yes Jose Arnold metoprolol tartrate 50 mg tablet 06-10 15:26: 10 06-10 00:00 :00 No 50mg Take 50 mg by mouth 2 (two) times daily. Take 1 tablet in the morning and one half in the evening [facility] ALBUTEROL SULFATE INHALE 06-10 15:09: 34 Yes Inhale. [facility] acetaminoph en (TYLENOL ORAL) 06-10 15:09: 34 Yes Take by mouth. [facility] omeprazole 10 mg capsule 06-10 15:06: 28 Yes 40mg Take 40 mg by mouth daily. [facility] metoprolol tartrate 50 mg tablet 06-10 00:00: 00 08-09 00:00 :00 No [id number] 50mg Take 1 tablet by mouth 2 (two) times daily. [facility] Dose Unknown 06-03 00:00: 00 Yes Jose Arnold Dose Unknown 06-03 00:00: 00 Yes Jose Arnold TAKE 1 TABLET BID NEEDED 2020-05 00:00: 00 Yes Jose Arnold metoprolol tartrate 50 mg tablet 2020-05 00:00: 00 Yes mg Jose Arnold Dose Unknown 2020-05 0 00:00: 00 Yes Jose Arnold Dose Unknown 2021-0 9-23 00:00: 00 Yes Jose Arnold Dose Unknown 0 9- 00:00: 00 Yes Jose Arnold Dose Unknown 0 9-02 00:00: 00 Yes Jsoe Arnold Dose Unknown 0 8-16 00:00: 00 Yes Jose Arnold ondansetron 4 mg disintegrat ing tablet 0 7-14 00:00: 00 Yes 1mg Jose Arnold metoprolol tartrate 50 mg tablet 0 6-22 00:00: 00 Yes mg Jose Arnold metoprolol tartrate 50 mg tablet 0 5-25 00:00: 00 Yes mg Jose Arnold metoprolol tartrate 50 mg tablet 0 3-24 00:00: 00 Yes mg Jose Arnold Dexilant 60 mg capsule, delayed release 0 3-24 00:00: 00 Yes 1mg Jose Arnold metoprolol tartrate 50 mg tablet 0 2-18 00:00: 00 Yes mg Jose Arnold Dose Unknown 2-18 00:00: 00 Yes Jose Arnold omeprazole 40 mg capsule,del ayed release 0 2-18 00:00: 00 Yes 1mg Jose Arnold metoprolol tartrate 50 mg tablet 1-14 00:00: 00 Yes mg Jose Arnold omeprazole 40 mg capsule,del ayed release 2019-05 2-30 00:00: 00 Yes 1mg Jose Arnold duloxetine 30 mg capsule,del ayed release 2019-05 2-14 00:00: 00 Yes 1mg Jose Arnold metoprolol tartrate 50 mg tablet 2019-05 0-14 00:00: 00 Yes mg Jose Arnold nystatin 100,000 unit/mL oral suspension 2019-05 0-14 00:00: 00 Yes 5unit/m L Jose Arnold clindamycin HCl 300 mg capsule - 00:00: 00 Yes 1mg Jose Arnold nystatin 100,000 unit/mL oral suspension 18 00:00: 00 Yes 5unit/m L Jose Arnold Augmentin 875 mg-125 mg tablet - 00:00: 00 Yes 1mg Jose Arnold metoprolol tartrate 50 mg tablet 0 8-25 00:00: 00 Yes mg Jose Arnold ProAir HFA 90 mcg/actuati on aerosol inhaler 0 8-05 00:00: 00 Yes 2mcg/ac tuation Jose Arnold prednisone 50 mg tablet 8 00:00: 00 Yes 1mg Jose Arnold omeprazole 40 mg capsule,del ayed release 0 8-05 00:00: 00 Yes 1mg Jose Arnold loratadine 10 mg tablet 09-07 00:00: 00 Yes 1mg Jose Arnold amoxicillin 875 mg tablet 09-07 00:00: 00 Yes 1mg Jose Arnold prednisone 50 mg tablet 07-10 00:00: 00 Yes 1mg Jose Arnold ProAir HFA 90 mcg/actuati on aerosol inhaler 07-06 00:00: 00 Yes 2mcg/ac tuation Jose Arnold metoprolol tartrate 50 mg tablet 2- 00:00: 00 Yes mg Jose Arnold omeprazole 40 mg capsule,del ayed release 2 00:00: 00 Yes 1mg Jose Arnold Tessalon Perles 100 mg capsule 2 00:00: 00 Yes 12mg Jose Arnold metoprolol tartrate 50 mg tablet 06-01 00:00: 00 Yes mg Jose Arnold metoprolol tartrate 50 mg tablet 2018-05 2 00:00: 00 Yes mg Jose Arnold metoprolol tartrate 50 mg tablet 2018-05 00:00: 00 Yes mg Jose Arnold triamcinolo ne acetonide 0.1 % topical cream 2018-05 00:00: 00 Yes 1% Jose Arnold metoprolol tartrate 50 mg tablet 2018-05 00:00: 00 Yes 1mg Jose Arnold prednisone 20 mg tablet 2018-05 00:00: 00 Yes mg Jose Arnold metoprolol tartrate 50 mg tablet 9 00:00: 00 Yes 1mg Jose Arnold metoprolol tartrate 50 mg tablet 603 00:00: 00 Yes 1mg Jose Arnold ranitidine 150 mg capsule 0 10-11 00:00: 00 Yes 1mg Jose Arnold ranitidine 150 mg capsule 0 09-09 00:00: 00 Yes 1mg Jose Arnold metoprolol tartrate 50 mg tablet 0 2-16 00:00: 00 Yes 1mg Jose Arnold amoxicillin 875 mg tablet 215 00:00: 00 Yes 1mg Jose Arnold ranitidine 150 mg capsule 207 00:00: 00 Yes 1mg Jose Arnold metoprolol tartrate 50 mg tablet 2017-05 205 00:00: 00 Yes 1mg Jose Arnold metoprolol tartrate 50 mg tablet 05 00:00: 00 Yes 1mg Jose Arnold hydrochloro thiazide 12.5 mg tablet 12-10 00:00: 00 Yes 1mg Jose Arnold metoprolol tartrate 50 mg tablet 12-10 00:00: 00 Yes 1mg Jose Arnold hydrochloro thiazide 12.5 mg tablet 18 00:00: 00 Yes 1mg Jose Arnold metoprolol tartrate 50 mg tablet 18 00:00: 00 Yes 1mg Jose Arnold cyclobenzap rine 5 mg tablet 18 00:00: 00 Yes 1mg Jose Arnold metoprolol tartrate 50 mg tablet 10-07 00:00: 00 Yes 1mg Jose Arnold metoprolol tartrate 50 mg tablet 08-10 00:00: 00 Yes 1mg Jose Arnold ranitidine 150 mg capsule 0 08-10 00:00: 00 Yes 1mg Jose Arnold metoprolol tartrate 50 mg tablet 220 00:00: 00 Yes 1mg Jose Arnold ranitidine 150 mg capsule 0 220 00:00: 00 Yes 1mg Jose Arnold metoprolol tartrate 50 mg tablet 0 05-20 00:00: 00 Yes 1mg Jose Arnold ranitidine 150 mg capsule 0 1 00:00: 00 Yes 1mg Jose Arnold metoprolol tartrate 25 mg tablet 0 1-03 00:00: 00 Yes 1mg Jose Arnold metoprolol tartrate 25 mg tablet 2016-05 00:00: 00 Yes 1mg Jose Arnold amlodipine 5 mg tablet 2016-05 00:00: 00 Yes 1mg Jose Arnold lisinopril 20 mg-hydrochl orothiazide 12.5 mg tablet 2016-05 00:00: 00 Yes 1mg Jose Arnold metoprolol tartrate 25 mg tablet 2016-05 00:00: 00 Yes 1mg Jose Arnold fluoxetine 10 mg tablet 2016-05 00:00: 00 Yes 1mg Jose Arnold Augmentin 875 mg-125 mg tablet 01-29 00:00: 00 Yes 1mg Jose Arnold metoprolol tartrate 25 mg tablet 01-23 00:00: 00 Yes 1mg Jose Arnold lisinopril 20 mg-hydrochl orothiazide 12.5 mg tablet 01-23 00:00: 00 Yes 1mg Jose Arnold lisinopril 20 mg-hydrochl orothiazide 12.5 mg tablet 12-02 00:00: 00 Yes 1mg Jose Arnold metoprolol tartrate 25 mg tablet 12-02 00:00: 00 Yes 1mg Jose Arnold prednisone 10 mg tablet 10-14 00:00: 00 Yes mg Jose Arnold metoprolol tartrate 25 mg tablet 10-14 00:00: 00 Yes 1mg Jose Arnold prednisone 5 mg tablet 10-14 00:00: 00 Yes 1mg Jose Arnold verapamil 40 mg tablet 10-14 00:00: 00 Yes 1mg Jose Arnold cyclobenzap rine 10 mg tablet 10-14 00:00: 00 Yes 51mg Jose Aronld gabapentin 300 mg capsule 10-14 00:00: 00 Yes 1mg Jose Arnold lisinopril 20 mg-hydrochl orothiazide 12.5 mg tablet 09-08 00:00: 00 Yes 1mg Jose Arnold metoprolol tartrate 25 mg tablet 09-08 00:00: 00 Yes 1mg Jose Arnold loratadine 10 mg tablet 08-25 00:00: 00 Yes 1mg Jose Arnold omeprazole 20 mg capsule,del ayed release 08-25 00:00: 00 Yes 1mg Jose Arnold gabapentin 100 mg capsule 08-25 00:00: 00 Yes 1mg Jose Arnold lisinopril 20 mg-hydrochl orothiazide 12.5 mg tablet 07-21 00:00: 00 Yes 1mg Jose Arnold prednisone 20 mg tablet 07-21 00:00: 00 Yes 2mg Jose Arnold loratadine 10 mg tablet 07-21 00:00: 00 Yes 1mg Jose Arnold metoprolol tartrate 25 mg tablet 07-21 00:00: 00 Yes 1mg Jose Arnold amoxicillin 500 mg capsule 07-21 00:00: 00 Yes 1mg Jose Arnold gabapentin 100 mg capsule 07-21 00:00: 00 Yes 1mg Jose Arnold promethazin e-DM 6.25 mg-15 mg/5 mL syrup 07-21 00:00: 00 Yes 10mg/5 mL Jose Arnold prednisone 10 mg tablet 06-19 00:00: 00 Yes mg Jose Arnold butalbital- acetaminoph en 50 mg-325 mg tablet 06-19 00:00: 00 Yes 1mg Jose Arnold propranolol 20 mg tablet 06-19 00:00: 00 Yes 1mg Jose Arnold omeprazole 20 mg capsule,del ayed release 06-19 00:00: 00 Yes 1mg Jose Arnold amoxicillin 875 mg tablet 2015-05 00:00: 00 Yes 1mg Jose Arnold ibuprofen 800 mg tablet 2015-05 00:00: 00 Yes 1mg Jose Arnold lisinopril 20 mg-hydrochl orothiazide 12.5 mg tablet 01-09 00:00: 00 Yes 1mg Jose Arnold metoprolol tartrate 25 mg tablet 01-09 00:00: 00 Yes 1mg Jose Arnold omeprazole 20 mg capsule,del ayed release 01-09 00:00: 00 Yes 1mg Jose Arnold gabapentin 100 mg capsule 01-09 00:00: 00 Yes 1mg Jose Arnold metoprolol tartrate 25 mg tablet 10-23 00:00: 00 Yes 1mg Jose Arnold lisinopril 20 mg-hydrochl orothiazide 12.5 mg tablet 10-03 00:00: 00 Yes 1mg Jose Arnold omeprazole 20 mg capsule,del ayed release 10-03 00:00: 00 Yes 1mg Jose Arnold metoprolol tartrate 25 mg tablet 05-31 00:00: 00 Yes 1mg Jose Arnold Wellbutrin 100 mg tablet 05-31 00:00: 00 Yes 1mg Jose Arnold omeprazole 20 mg capsule,del ayed release 05-31 00:00: 00 Yes 1mg Jose Arnold Wellbutrin 100 mg tablet 2014-05 00:00: 00 Yes 1mg Jose Arnold simvastatin 20 mg tablet 2014-05 00:00: 00 Yes 1mg Jose Arnold Zyrtec 10 mg tablet 2014-05 00:00: 00 Yes 1mg Jose Arnold metoprolol tartrate 25 mg tablet 2014-05 00:00: 00 Yes 1mg Jose Arnold Zithromax Z-Francisco J 250 mg tablet 2014-05 00:00: 00 Yes 1mg Jose Arnold metoprolol tartrate 25 mg tablet 10-27 00:00: 00 Yes 1mg Jose Arnold Motrin 800 mg tablet 10-27 00:00: 00 Yes 1mg Joes Arnold Motrin 800 mg tablet 09-06 00:00: 00 Yes 1mg Jose Arnold metoprolol tartrate 25 mg tablet 08-18 00:00: 00 Yes 1mg Jose Arnold naproxen 500 mg tablet 08-18 00:00: 00 Yes 1mg Jose Arnold Flexeril 5 mg tablet 08-18 00:00: 00 Yes 1mg Jose Arnold Vital Signs Vital Name Observation Time Observation Value Comments S ource Body temperature 2021-09-25 07:54:00 37 Josette [facility] Systolic blood pressure 2021-09-25 07:46:00 119 mm[Hg] [facility] Diastolic blood pressure 2021-09-25 07:46:00 81 mm[Hg] [facility] Heart rate 2021-09-25 07:46:00 79 /min [facility] Respiratory rate 2021-09-25 07:46:00 19 /min [facility] Oxygen saturation in Arterial blood by Pulse oximetry 2021-09-25 06:15:00 98 /min [facility] Body height 2021-09-25 03:29:00 154.9 cm [facility] Body weight 2021-09-25 03:29:00 127.007 kg [facility] BMI 2021-09-25 03:29:00 52.91 kg/m2 [facility] Systolic blood pressure 2021-06-10 21:13:00 146 mm[Hg] [facility] Diastolic blood pressure 2021-06-10 21:13:00 83 mm[Hg] [facility] Heart rate 2021-06-10 21:05:00 71 /min [facility] Body height 2021-06-10 21:05:00 154.9 cm [facility] Body weight 2021-06-10 21:05:00 128.595 kg [facility] BMI 2021-06-10 21:05:00 53.57 kg/m2 [facility] Oxygen saturation in Arterial blood by Pulse oximetry 2021-06-10 21:05:00 94 /min [facility] BP Systolic 2023-09-15 16:35:00 126 mm[Hg] Abran Arnold BP Diastolic 2023-09-15 16:35:00 80 mm[Hg] Francisco Arnold Weight Measured 2023-09-15 16:35:00 297.40 pounds Jose Arnold Height Measured 2023-09-15 16:35:00 63.00 inches Jose Arnold Body Temperature 2023-09-15 16:35:00 98.10 degrees Jose Arnold Heart Rate 2023-09-15 16:35:00 71.00 /min Nicky Arnold Respiratory Rate 2023-09-15 16:35:00 18.00 /min Jose F Clayton BP Systolic 2023-06-13 11:56:00 131 mm[Hg] Step hen F Clayton BP Diastolic 2023-06-13 11:56:00 84 mm[Hg] Francisco phen F Clayton Weight Measured 2023-06-13 11:56:00 294.60 pounds Jose F Clayton Height Measured 2023-06-13 11:56:00 63.00 inches Jose F Clayton Body Temperature 2023-06-13 11:56:00 97.40 degrees Jose F Clayton Heart Rate 2023-06-13 11:56:00 67.00 /min Nicky en F Clayton Respiratory Rate 2023-06-13 11:56:00 Jose F Clayton BP Systolic 2023-04-22 17:06:00 144 mm[Hg] Step hen F Clayton BP Diastolic 2023-04-22 17:06:00 89 mm[Hg] Francisco phen F Clayton Weight Measured 2023-04-22 17:06:00 290.40 pounds Jose F Clayton Height Measured 2023-04-22 17:06:00 63.00 inches Jose F Clayton Body Temperature 2023-04-22 17:06:00 98.20 degrees Jose F Clayton Heart Rate 2023-04-22 17:06:00 77.00 /min Nicky en F Clayton Respiratory Rate 2023-04-22 17:06:00 19.00 /min Jose F Clayton BP Systolic 2023-03-19 16:43:00 149 mm[Hg] Step hen F Clayton BP Diastolic 2023-03-19 16:43:00 87 mm[Hg] Francisco phen F Clayton Weight Measured 2023-03-19 16:43:00 292.20 pounds Jose F Clayton Height Measured 2023-03-19 16:43:00 63.00 inches Jose F Clayton Body Temperature 2023-03-19 16:43:00 98.20 degrees Jose F Clayton Heart Rate 2023-03-19 16:43:00 72.00 /min Nicky en F Clayton Respiratory Rate 2023-03-19 16:43:00 Jose F Clayton BP Systolic 2022-12-26 16:29:00 163 mm[Hg] Step hen F Clayton BP Diastolic 2022-12-26 16:29:00 81 mm[Hg] Francisco phen F Clayton Weight Measured 2022-12-26 16:29:00 291.00 pounds Jose F Clayton Height Measured 2022-12-26 16:29:00 63.00 inches Jose F Clayton Body Temperature 2022-12-26 16:29:00 98.10 degrees Jose F Clayton Heart Rate 2022-12-26 16:29:00 67.00 /min Nicky en F Clayton Respiratory Rate 2022-12-26 16:29:00 Jose F Clayton BP Systolic 2022-12-12 16:28:00 143 mm[Hg] Step hen F Clayton BP Diastolic 2022-12-12 16:28:00 83 mm[Hg] Francisco phen F Clayton Weight Measured 2022-12-12 16:28:00 288.40 pounds Jose F Clayton Height Measured 2022-12-12 16:28:00 63.00 inches Jose F Clayton Body Temperature 2022-12-12 16:28:00 97.60 degrees Jose F Clayton Heart Rate 2022-12-12 16:28:00 70.00 /min Nicky en F Clayton Respiratory Rate 2022-12-12 16:28:00 Jose F Clayton BP Systolic 2022-11-11 13:49:00 148 mm[Hg] Step hen F Clayton BP Diastolic 2022-11-11 13:49:00 85 mm[Hg] Francisco phen F Clayton Weight Measured 2022-11-11 13:49:00 288.20 pounds Jose F Clayton Height Measured 2022-11-11 13:49:00 63.00 inches Jose F Clayton Body Temperature 2022-11-11 13:49:00 97.80 degrees Jose F Clayton Heart Rate 2022-11-11 13:49:00 79.00 /min Nicky en F Clayton Respiratory Rate 2022-11-11 13:49:00 Jose F Clayton BP Systolic 2022-11-08 14:12:00 148 mm[Hg] Step hen F Clayton BP Diastolic 2022-11-08 14:12:00 85 mm[Hg] Francisco phen F Clayton Weight Measured 2022-11-08 14:12:00 288.20 pounds Jose F Clayton Height Measured 2022-11-08 14:12:00 63.00 inches Jose F Clayton Body Temperature 2022-11-08 14:12:00 97.80 degrees Jose F Clayton Heart Rate 2022-11-08 14:12:00 79.00 /min Nicky en F Clayton Respiratory Rate 2022-11-08 14:12:00 Jose F Clayton BP Systolic 2022-09-20 13:49:00 135 mm[Hg] Step hen F Clayton BP Diastolic 2022-09-20 13:49:00 78 mm[Hg] Francisco phen F Clayton Weight Measured 2022-09-20 13:49:00 289.60 pounds Jose F Clayton Height Measured 2022-09-20 13:49:00 63.00 inches Jose F Clayton Body Temperature 2022-09-20 13:49:00 97.90 degrees Jose F Clayton Heart Rate 2022-09-20 13:49:00 79.00 /min Nicky en F Clayton Respiratory Rate 2022-09-20 13:49:00 Jose Steve Arnold BP Systolic 2022-08-07 17:02:00 136 mm[Hg] Step hen F Clayton BP Diastolic 2022-08-07 17:02:00 63 mm[Hg] Francisco phen F Clayton Weight Measured 2022-08-07 17:02:00 286.20 pounds Jose Arnold Height Measured 2022-08-07 17:02:00 63.00 inches Jose Arnold Body Temperature 2022-08-07 17:02:00 97.80 degrees Jose F Clayton Heart Rate 2022-08-07 17:02:00 71.00 /min Nicky en F Clayton Respiratory Rate 2022-08-07 17:02:00 18.00 /min Jose Steve Arnold Procedures Procedure Date / Time Performed Performing Clinicia n Source REFERRAL- REQUEST/RESPONSE 2022-12-13 05:01:00 Doctor Unassigned, Emlyn [facility] POCT GLUCOSE (AUTOMATED) 2021-09-25 08:06:00 Michael Mueller [facility] CT ABDOMEN PELVIS W CONTRAST 2021-09-25 06:00:00 Michael Mueller [facility] URINALYSIS 2021-09-25 05:32:00 [facility] 2021-09-25 04:22:00 Michael Mueller [facility] TROPONIN I 2021-09-25 04:22:00 Michael Mueller [facility] COMP. METABOLIC PANEL ([id number]) 2021-09-25 04:22:00 Michael Mueller [facility] CBC WITH DIFF 2021-09-25 04:22:00 Michael Mueller [facility] NOTICE OF PRIVACY PRACTICES 2021-09-25 02:57:58 Doctor Unassigned, Emlyn [facility] CONSENT/REFUSAL FOR DIAGNOSIS AND TREATMENT 2021-09-25 02:57:17 Doctor Unassigned, Emlyn [facility] Encounters Start Date/Time End Date/Time Encounter Type Admission Type Attending [facility] Care Facility Care Department Encounter ID Source 2023-09-28 00:00:00 2023-09-28 00:00:00 Outpatient CARLOS ALBERTO DILLARD [id number] Krupa Lemus 2023-09-15 16:23:33 2023-09-15 16:23:33 Outpatient [facility] [id number] Jose Steve Clayton 2023-09-15 00:00:00 2023-09-15 00:00:00 Outpatient Visit [facility] [id number] Jose Steve Clayton 2023-07-15 15:30:00 2023-07-15 15:30:00 Outpatient BHUMIKA ALLAN STRAHIL [facility] [id number] [facility] 2023-06-13 11:56:28 2023-06-13 11:56:28 Outpatient [facility] [id number] Jose Steve Clayton 2023-04-22 17:01:07 2023-04-22 17:01:07 Outpatient [facility] [id number] Jose Steve Clayton 2023-03-19 16:21:05 2023-03-19 16:21:05 Outpatient [facility] [id number] Jose Steve Clayton 2022-12-29 00:00:00 2022-12-29 00:00:00 Letter (Out) Yang, Janneth [facility] [id number] 350.1.13.10 4.2.7.2.686 [id number] [facility] 2022-12-26 16:18:29 2022-12-26 16:18:29 Outpatient [facility] [id number] Jose Wilson [place] 2022-12-13 00:00:00 2022-12-13 00:00:00 Orders Only Doctor Unassigned, Emlyn [facility] [id number] 350.1.13.10 4.2.7.2.686 [id number] [facility] 2022-12-12 16:24:25 2022-12-12 16:24:25 Outpatient [facility] [id number] Jose Wilson [place] 2022-12-11 14:15:09 2022-12-11 14:15:09 Outpatient [facility] [id number] Jose Wilson [place] 2022-11-08 14:10:03 2022-11-08 14:10:03 Outpatient [facility] [id number] Jose Wilson [place] 2022-09-20 13:41:38 2022-09-20 13:41:38 Outpatient [facility] [id number] Jose Wilson [place] 2022-08-07 16:55:08 2022-08-07 16:55:08 Outpatient [facility] [id number] Jose Wilson [place] 2022-03-03 15:47:22 2022-03-03 15:47:22 Outpatient [facility] 1024 Jose Wilson [place] 2021-11-07 08:30:00 2021-11-07 08:30:00 Outpatient SOUMYA KNOWLES [facility] [id number] [facility] 2021-09-24 22:32:00 2021-09-25 03:49:00 Emergency X MICHAEL MUELLER [facility] ERT [id number] [facility] 2021-09-24 22:32:00 2021-09-25 03:49:00 Emergency Michael Mueller [facility] 1.840.114 350.1.13.10 4.2.7.2.686 [id number] [facility] 2021-08-06 00:00:00 2021-08-06 00:00:00 [facility] 1.2840.114 350.1.13.10 4.2.7.2.686 [id number] [facility] 2021-07-09 13:00:00 2021-07-09 13:00:00 Outpatient R [facility] [id number] [facility] 2021-07-01 10:30:00 2021-07-01 10:30:00 Outpatient R CHERYL ESPINOZA [facility] [id number] [facility] 2021-06-30 00:00:00 2021-06-30 00:00:00 Telephone Cheryl Espinoza [facility] [employer] [facility] 1..114 350.1.13.10 4.2.7.2.686 [id number] [facility] 2021-06-10 15:20:00 2021-06-10 15:31:06 [facility] [id number] [facility] 2021-06-10 15:20:00 2021-06-10 15:31:06 [facility] 1.840.114 350.1.13.10 4.2.7.2.686 [id number] [facility] 2021-06-10 00:00:00 2021-06-10 00:00:00 Orders Only Doctor Unassigned, Emlyn [facility] 1.840.114 350.1.13.10 4.2.7.2.686 [id number] [facility] 2021-04-26 10:18:00 2021-04-27 16:12:00 Outpatient X CHARLOTTE MURPHY [facility] JESUS [id number] [facility] 2021-04-26 10:18:00 2021-04-27 16:12:00 [facility] [id number] [facility] 2021-04-26 10:18:00 2021-04-27 16:12:00 Emergency Mitra Barajas [facility] [id number] 350.1.13.10 4.2.7.2.686 [id number] [facility] 2020-12-13 15:00:00 2020-12-13 15:09:50 [facility] [id number] [facility] 2020-11-22 15:20:00 2020-11-22 15:09:34 Outpatient REBEKA MAHAN [facility] [id number] [facility] 2019-01-05 22:28:10 2019-01-05 23:35:00 Emergency Mcfadden Anni Macie [facility] [id number] 350.1.13.10 4.2.7.2.686 [id number] [facility] 2018-12-14 06:51:33 2018-12-14 23:59:00 Hospital Encounter Soumya Garland [facility] 1.2.840.114 350.1.13.10 4.2.7.2.686 [id number] [facility] Results Test Description Test Time Test Comments Results Result Co mments Source CBC W/AUTO DIFF WITH [id number] 05:19:43* Test Item Value Reference Range Interpretation [...] 0.00-0.10 ABS NUCLEATED RBCS (test code = 88077) 0.04 K/UL 0.00-0.11 CBC W/AUTO [id number] 00:00:00* Test Item Value Reference Range Interpretation Comme nts WBC (test code = 1001) 6.7 K/UL RBC (test code = 1002) 5.00 M/UL HEMOGLOBIN (test code = 1003) 15.5 G/DL HEMATOCRIT (test code = 1004) 44.5 % MCV (test code = 1005) 89.0 fL MCH (test code = 1006) 31.0 PG MCHC (test code = 1007) 34.8 G/DL RDW (test code = 1038) 13.6 % NEUTROPHILS (test code = 1008) 52.4 % LYMPHOCYTES (test code = 1010) 37.6 % MONOCYTES (test code = 1011) 6.6 % EOSINOPHILS (test code = 1012) 2.2 % BASOPHILS (test code = 1013) 0.9 % IMMATURE GRANULOCYTES (test code = 1036) 0.3 % NUCLEATED RBCS (test code = 1065) 0.0 /100WBC'S PLATELET COUNT (test code = 1015) 213 K/UL ABSOLUTE NEUTROPHILS (test c ode = 1066) 3.52 K/UL ABSOLUTE LYMPHOCYTES (test c ode = 1067) 2.52 K/UL ABSOLUTE MONOCYTES (test cod e = 1068) 0.44 K/UL ABSOLUTE EOSINOPHILS (test c ode = 1040) 0.15 K/UL ABSOLUTE BASOPHILS (test cod e = 1069) 0.06 K/UL ABS IMMATURE GRANULOCYTES (t est code = 1020) 0.02 K/UL ABS NUCLEATED RBCS (test cod e = 40471) 0.04 K/UL Jose ArnoldH. PYLORI (BREATH)2022-03-05 00:00:00* Test Item Value Reference Range Interpretation Comme nts H. PYLORI (BREATH) (test cod e = 80389) NEGATIVE Jose ArnoldPODONAVAN GLUCOSE (AUTOMATED)2021-09-25 08:08:54* Test Item Value Reference Range Interpretation Comme nts POCT GLU (test code = 8967971459) 102 mg/dL 70-110 Lab Interpretation (test cod e = 99967-8) [facility] [id number] 05:03:02* Test Item Value Reference Range Interpretation Comments TROPONIN I (test code = 9521834065) 0.001 ng/mL See_Comment [Automated message] The system [...] of biotin. Lab Interpretation (test code = 70408-1) Normal [facility]. METABOLIC PANEL (23944)2021-09-25 04:52:19* Test Item Value Reference Range Interpretation Comme nts NA (test code = 3726138283) 140 mmol/L 135-145 K (test code = 9754055946) 4.5 mmol/L 3.5-5.0 CL (test code = 8406664447) 103 mmol/L 98-108 CO2 TOTAL (test code = 5616639697) 25 mmol/L 23-31 AGAP (test code = 5755425943) 2-16 BUN (test code = 3822592960) 13 mg/dL 7-23 GLUCOSE (test code = 9835987657) 141 mg/dL 70-110 H CREATININE (test code = 3852725698) 0.60 mg/dL 0.50-1.04 TOTAL BILI (test code = 2468221799) 0.6 mg/dL 0.1-1.1 CALCIUM (test code = 6141288054) 9.4 mg/dL 8.6-10.6 T PROTEIN (test code = 1197515053) 8.1 g/dL 6.3-8.2 ALBUMIN (test code = 1658167723) 4.7 g/dL 3.5-5.0 ALK PHOS (test code = 3073534513) 98 U/L 34-122 ALTv (test code = 1742-6) 25 U/L 5-35 AST(SGOT) (test code = 3082176557) 27 U/L 13-40 eGFR (test code = 5483138133) mL/min/1.73m2 MARY (test code = MARY) Association [...] imaging tests). Lab Interpretation (test code = 84597-6) [facility] 04:51:39* Test Item Value Reference Range Interpretation Comme nts LIPASE (test code = 3573886412) 118 U/L 0-220 Lab Interpretation (test cod e = 30160-0) Normal [facility] WITH [id number] 04:38:15* Test Item Value Reference Range Interpretation [...] 34.0 g/dL 31.6-35.1 RDW-SD (test code = 11260-1) 41.5 fL 39.0-49.9 RDW-CV (test code = 788-0) 12.8 % 12.0-15.5 PLT (test code = 777-3) See_Comment [Automated message] The system which generated this result transmitted reference range: 166 - 358 10*3/?L. The reference range was not used to interpret this result as normal/abnormal. MPV (test code = 34328-4) 11.7 fL 9.5-12.9 NRBC/100 WBC (test code = 6285556669) See_Comment [Automated message] The system which generated this result transmitted reference range: 0.0 - 10.0 /100 WBCs. The reference range was not used to interpret this result as normal/abnormal. NRBC x10^3 (test code = 9125846491) <0.01 See_Comment [Automated message] The system which generated this result transmitted reference range: 10*3/?L. The reference range was not used to interpret this result as normal/abnormal. GRAN MAT (NEUT) % (test code = 770-8) 78.8 % IMM GRAN % (test code = 5595728746) 0.30 % LYMPH % (test code = 736-9) 14.7 % MONO % (test code = 5905-5) 5.0 % EOS % (test code = 713-8) 0.6 % BASO % (test code = 706-2) 0.6 % GRAN MAT x10^3(ANC) (test code = 7291392962) 10.01 10*3/uL 1.88-7.09 H IMM GRAN x10^3 (test code = 3793200224) 0.04 10*3/uL 0.00-0.06 LYMPH x10^3 (test code = 731-0) 1.86 10*3/uL 1.32-3.29 MONO x10^3 (test code = 742-7) 0.63 10*3/uL 0.33-0.92 EOS x10^3 (test code = 711-2) 0.08 10*3/uL 0.03-0.39 BASO x10^3 (test code = 704-7) 0.07 10*3/uL 0.01-0.07 Lab Interpretation (test code = 25684-4) Abnormal [facility] REFLEX AUTOIMMUNE AB [id number] 08:39:16* Test Item Value Reference Range Interpretation Comme nts ANTI-NUCLEAR ANTIBODIES (test code = 3506) NEGATIVE NEGATIVE Methodology is I ndirect Immunofluorescent Assay (IFA) with a titering system using [id number] cells (Hep2 cells transfected with SS-A/Ro). HIV 1/2 4TH GEN, RFLX [id number] 03:26:41* Test Item Value Reference Range Interpretation Comme nts HIV 1/2 4TH GEN, RFLX CONF (test code = 3514) NON-REACTIVE NON-REACTIVE UNLESS OTHERWISE INDICATED, ALL TESTING PERFORMED [facility] [address] [place] [address] [employer] ACCESS DEVELOPER: RAMIREZ CERON M.D. CLIA NUMBER [id number] [place]. [id number] [place] REFLEX AUTOIMMUNE AB [id number] 00:00:00* Test Item Value Reference Range Interpretation Comme nts ANTI-NUCLEAR ANTIBODIES (nicolle t code = 3506) NEGATIVE Jose ArnoldHIV AB/AG COMBO RFLX [id number] 00:00:00* Test Item Value Reference Range Interpretation Comme nts HIV 1/2 4TH GEN, RFLX CONF ( test code = 3514) NON-REACTIVE Jose Wilson ClaytonTSH, THIRD [id number] 02:23:43* Test Item Value Reference Range Interpretation Comme nts TSH, THIRD GENERATION (test code = 2821) 3.790 UIU/ML 0.400-4.100 RHEUMATOID FACTOR, [id number] 02:15:22* Test Item Value Reference Range Interpretation Comme nts RHEUMATOID FACTOR, QUANT (te st code = 3502) <10 IU/ML <14 LIPID [id number] 02:15:07* Test Item Value Reference Range Interpretation [...] SPECIMENS. FOR MOREINFORMATION, SEE CLIENT ANNOUNCEMENT AT [email or web address] RISK RATIO LDL/HDL (test code = 2238) 2.81 RATIO <3.22 COMPREHENSIVE METABOLIC [id number] 02:15:07* Test Item Value Reference Range Interpretation Comme nts GLUCOSE (test code = 2217) 98 MG/DL 70-99 BUN (test code = 2208) 9 MG/DL 6-20 CREATININE (test code = 2214) 0.61 MG/DL 0.60-1.30 eGFR (2020 CKD-EPI) (test code = 03127) 105 ML/MIN/1.73 >60 CALC BUN/CREAT (test code [...] 7.5 G/DL 6.1-8.3 ALBUMIN (test code = 2201) 4.3 G/DL 3.5-5.2 CALC GLOBULIN (test code = 2240) 3.2 G/DL 1.9-3.7 CALC A/G RATIO (test code = 2234) 1.3 RATIO 1.0-2.6 BILIRUBIN, TOTAL (test code = 2207) 0.6 MG/DL See_Comment [Automated me ssage] The system which generated this result transmitted reference range: <=1.2. The reference range was not used to interpret this result as normal/abnormal. ALKALINE PHOSPHATASE (test code = 2204) 97 U/L 40-136 AST (test code = 2218) 19 U/L 9-40 ALT (test code = 2219) 25 U/L 5-40 LIPID [id number] 00:00:00* Test Item Value Reference Range Interpretation Comme nts CHOLESTEROL (test code = 2210) 215 MG/DL TRIGLYCERIDES (test code = 2232) 187 MG/DL HDL CHOLESTEROL (test code = 2220) 48 MG/DL CALC LDL CHOL (test code = 2237) 135 MG/DL RISK RATIO LDL/HDL (test cod e = 2238) 2.81 RATIO Jose ArnoldCOMPREHENSIVE METABOLIC [id number] 00:00:00* Test Item Value Reference Range Interpretation Comme nts GLUCOSE (test code = 2217) 98 MG/DL BUN (test code = 2208) 9 MG/DL CREATININE (test code = 2214) 0.61 MG/DL eGFR (2020 CKD-EPI) (test code = 71438) 105 ML/MIN/1.73 CALC BUN/CREAT (test code = 2235) 15 RATIO SODIUM (test code = 2231) 142 MEQ/L POTASSIUM (test code = 2228) 4.4 MEQ/L CHLORIDE (test code = 2215) 103 MEQ/L CARBON DIOXIDE (test code = 2206) 20 MEQ/L CALCIUM (test code = 2209) 9.7 MG/DL PROTEIN, TOTAL (test code = 2229) 7.5 G/DL ALBUMIN (test code = 2201) 4.3 G/DL CALC GLOBULIN (test code = 2240) 3.2 G/DL CALC A/G RATIO (test code = 2234) 1.3 RATIO BILIRUBIN, TOTAL (test code = 2207) 0.6 MG/DL ALKALINE PHOSPHATASE (test code = 2204) 97 U/L AST (test code = 2218) 19 U/L ALT (test code = 2219) 25 U/L Jose ArnoldRHEUMATOID FACTOR, [id number] 00:00:00* Test Item Value Reference Range Interpretation Comme nts RHEUMATOID FACTOR, QUANT (te st code = 3502) <10 IU/ML Jose [id number] 00:00:00* Test Item Value Reference Range Interpretation Comme nts TSH, THIRD GENERATION (test code = 2821) 3.790 UIU/ML Jose ArnoldCBC W/AUTO DIFF WITH [id number] 04:28:25* Test Item Value Reference Range Interpretation [...] = 1065) 0.0 /100 WBC'S See_Comment [Automated [employer] ge] The system which generated this result [...] 0.00-0.10 ABS NUCLEATED RBCS (test code = 86027) 0.00 K/UL 0.00-0.11 CBC W/AUTO [id number] 00:00:00* Test Item Value Reference Range Interpretation Comme [...] NUCLEATED RBCS (test code = 1065) 0.0 /100WBC'S PLATELET COUNT (test code = 1015) 214 K/UL ABSOLUTE NEUTROPHILS (test c ode = 1066) 3.51 K/UL ABSOLUTE LYMPHOCYTES (test c ode = 1067) 1.89 K/UL ABSOLUTE MONOCYTES (test cod e = 1068) 0.44 K/UL ABSOLUTE EOSINOPHILS (test c ode = 1040) 0.16 K/UL ABSOLUTE BASOPHILS (test cod e = 1069) 0.06 K/UL ABS IMMATURE GRANULOCYTES (t est code = 1020) 0.02 K/UL ABS NUCLEATED RBCS (test cod e = 01486) 0.00 K/UL Jose Wilson [id number] 00:00:00* Test Item Value Reference Range Interpretation Comme nts AMYLASE (test code = 2205) 58 U/L Jose F [id number] 00:00:00* Test Item Value Reference Range Interpretation Comme nts LIPASE (test code = 2058) 26 U/L Jose Steve ClaytonCBC W/AUTO [id number] 00:00:00* Test Item Value Reference Range Interpretation Comme nts WBC (test code = 1001) 8.3 K/UL [...] % IMMATURE GRANULOCYTES (test code = 1036) 0.2 % NUCLEATED RBCS (test code = 1065) 0.0 /100WBC'S PLATELET COUNT (test code = 1015) 231 K/UL ABSOLUTE NEUTROPHILS (test c ode = 1066) 5.32 K/UL ABSOLUTE LYMPHOCYTES (test c ode = 1067) 2.26 K/UL ABSOLUTE MONOCYTES (test cod e = 1068) 0.50 K/UL ABSOLUTE EOSINOPHILS (test c ode = 1040) 0.14 K/UL ABSOLUTE BASOPHILS (test cod e = 1069) 0.08 K/UL ABS IMMATURE GRANULOCYTES (t est code = 1020) 0.02 K/UL ABS NUCLEATED RBCS (test cod e = 26674) 0.00 K/UL Jose F AustinCOMPREHENSIVE METABOLIC [id number] 00:00:00* Test Item Value Reference Range Interpretation Comme nts GLUCOSE (test code = 2217) 93 MG/DL BUN (test code = 2208) 9 MG/DL CREATININE (test code = 2214) 0.63 MG/DL eGFR AMER. (test cod e = 51708) 117 ML/MIN/1.73 eGFR NON- AMER. (test code = 39729) 101 ML/MIN/1.73 CALC BUN/CREAT (test code = 2235) 14 RATIO SODIUM (test code = 2231) 142 MEQ/L POTASSIUM (test code = 2228) 4.4 MEQ/L CHLORIDE (test code = 2215) 104 MEQ/L CARBON DIOXIDE (test code = 2206) 26 MEQ/L CALCIUM (test code = 2209) 9.8 MG/DL PROTEIN, TOTAL (test code = 2229) 7.6 G/DL ALBUMIN (test code = 2201) 4.7 G/DL CALC GLOBULIN (test code = 2240) 2.9 G/DL CALC A/G RATIO (test code = 2234) 1.6 RATIO BILIRUBIN, TOTAL (test code = 2207) 0.8 MG/DL ALKALINE PHOSPHATASE (test code = 2204) 104 U/L AST (test code = 2218) 26 U/L ALT (test code = 2219) 30 U/L Jose ArnoldSARS-CoV-2 (COVID-19) by RT-PCR (HIGH RISK)2020-12-27 00:00:00* Test Item Value Reference Range Interpretation Comme criss SARS-CoV-2 INTERPRETATION (t est code = 49829) NEGATIVE SOURCE (test code = 02880) NOT SPECIFIED Jose ArnoldRHEUMATOID FACTOR, [id number] 00:00:00* Test Item Value Reference Range Interpretation Comme nts RHEUMATOID FACTOR, QUANT (te st code = 3502) <10 IU/ML Jose ArnoldMANSOOR (ANTI-NUCLEAR AB) WITH REFLEX [id number] 00:00:00* Test Item Value Reference Range Interpretation Comme nts ANTI-NUCLEAR ANTIBODIES (nicolle t code = 3506) NEGATIVE Jose ArnoldCCP [id number] 00:00:00* Test Item Value Reference Range Interpretation Comme nts CCP IgG (test code = 01036) <0.5 U/ML Jose ArnoldCBC W/AUTO [id number] 00:00:00* Test Item Value Reference Range Interpretation Comme nts WBC (test code = 1001) 5.1 K/UL [...] COUNT (test code = 1015) 192 K/UL Jose [id number] 00:00:00* Test Item Value Reference Range Interpretation Comme nts TSH, THIRD GENERATION (test code = 2821) 2.790 UIU/ML Jose ArnoldCOMPREHENSIVE METABOLIC [id number] 00:00:00* Test Item Value Reference Range Interpretation Comme nts GLUCOSE (test code = 2217) 113 MG/DL BUN (test code = 2208) 12 MG/DL CREATININE (test code = 2214) 0.64 MG/DL eGFR AMER. (test cod e = 44747) 117 ML/MIN/1.73 eGFR NON- AMER. (test code = 32583) 101 ML/MIN/1.73 CALC BUN/CREAT (test code = 2235) 19 RATIO SODIUM (test code = 2231) 141 MEQ/L POTASSIUM (test code = 2228) 4.3 MEQ/L CHLORIDE (test code = 2215) 104 MEQ/L CARBON DIOXIDE (test code = 2206) 25 MEQ/L CALCIUM (test code = 2209) 9.5 MG/DL PROTEIN, TOTAL (test code = 2229) 7.4 G/DL ALBUMIN (test code = 2201) 4.6 G/DL CALC GLOBULIN (test code = 2240) 2.8 G/DL CALC A/G RATIO (test code = 2234) 1.6 RATIO BILIRUBIN, TOTAL (test code = 2207) 0.4 MG/DL ALKALINE PHOSPHATASE (test code = 2204) 90 U/L AST (test code = 2218) 19 U/L ALT (test code = 2219) 29 U/L Jose ArnoldLIPID [id number] 00:00:00* Test Item Value Reference Range Interpretation Comme nts CHOLESTEROL (test code = 2210) 225 MG/DL TRIGLYCERIDES (test code = 2232) 196 MG/DL HDL CHOLESTEROL (test code = 2220) 50 MG/DL CALC LDL CHOL (test code = 2237) 141 MG/DL RISK RATIO LDL/HDL (test cod e = 2238) 2.82 RATIO Jose ArnoldCULTURE, [id number] 00:00:00* Test Item Value Reference Range Interpretation Comme nts CULTURE, THROAT (test code = 16111) SPECIMEN NUMBER: [id number] Jose ArnoldSARS-CoV-2 (COVID-19) by RT-PCR (HIGH RISK)2019-12-29 00:00:00* Test Item Value Reference Range Interpretation Comme nts SARS-CoV-2 INTERPRETATION (t est code = 13512) NEGATIVE SOURCE (test code = 13992) NOT SPECIFIED Jose Wilson RmjhpfOPEL-OgR-0 (COVID-19) by RT-PCR (HIGH RISK)2019-12-07 00:00:00* Test Item Value Reference Range Interpretation Comme nts SARS-CoV-2 INTERPRETATION (t est code = 00864) NEGATIVE SOURCE (test code = 58904) NOT SPECIFIED Jose ArnoldSARS-COV-2(COVID19),HIGHRISK,RT-PCR [ADDED]2019-09-12 00:00:00* Test Item Value Reference Range Interpretation Comme nts SARS-CoV-2 INTERPRETATION (test code = 49709) NEGATIVE SOURCE (test code = 32499) NASOPHARYNGEAL Jose ArnoldCBC W/AUTO [id number] 00:00:00* Test Item Value Reference Range Interpretation Comme nts WBC (test code = 1001) 5.0 K/UL [...] COUNT (test code = 1015) 225 K/UL Jose [id number] 00:00:00* Test Item Value Reference Range Interpretation Comme nts AMYLASE (test code = 2205) 78 U/L Jose [id number] 00:00:00* Test Item Value Reference Range Interpretation Comme nts LIPASE (test code = 2058) 39 U/L Jose ArnoldCBC W/AUTO [id number] 00:00:00* Test Item Value Reference Range Interpretation Comme nts WBC (test code = 1001) 3.6 K/UL [...] COUNT (test code = 1015) 218 K/UL Jose ArnoldCOMPREHENSIVE METABOLIC [id number] 00:00:00* Test Item Value Reference Range Interpretation Comme nts GLUCOSE (test code = 2217) 81 MG/DL BUN (test code = 2208) 12 MG/DL CREATININE (test code = 2214) 0.49 MG/DL eGFR AMER. (test cod e = 14056) 131 ML/MIN/1.73 eGFR NON- AMER. (test code = 31792) 113 ML/MIN/1.73 CALC BUN/CREAT (test code = 2235) 24 RATIO SODIUM (test code = 2231) 140 MEQ/L POTASSIUM (test code = 2228) 4.2 MEQ/L CHLORIDE (test code = 2215) 100 MEQ/L CARBON DIOXIDE (test code = 2206) 26 MEQ/L CALCIUM (test code = 2209) 9.5 MG/DL PROTEIN, TOTAL (test code = 2229) 7.3 G/DL ALBUMIN (test code = 2201) 4.3 G/DL CALC GLOBULIN (test code = 2240) 3.0 G/DL CALC A/G RATIO (test code = 2234) 1.4 RATIO BILIRUBIN, TOTAL (test code = 2207) 0.4 MG/DL ALKALINE PHOSPHATASE (test code = 2204) 92 U/L AST (test code = 2218) 20 U/L ALT (test code = 2219) 26 U/L Jose ArnoldCOMPREHENSIVE METABOLIC [id number] 00:00:00* Test Item Value Reference Range Interpretation Comme nts GLUCOSE (test code = 2217) 91 MG/DL BUN (test code = 2208) 9 MG/DL CREATININE (test code = 2214) 0.52 MG/DL eGFR AMER. (test cod e = 74026) 129 ML/MIN/1.73 eGFR NON- AMER. (test code = 67242) 111 ML/MIN/1.73 CALC BUN/CREAT (test code = 2235) 17 RATIO SODIUM (test code = 2231) 142 MEQ/L POTASSIUM (test code = 2228) 4.4 MEQ/L CHLORIDE (test code = 2215) 102 MEQ/L CARBON DIOXIDE (test code = 2206) 22 MEQ/L CALCIUM (test code = 2209) 9.1 MG/DL PROTEIN, TOTAL (test code = 2229) 7.1 G/DL ALBUMIN (test code = 2201) 4.2 G/DL CALC GLOBULIN (test code = 2240) 2.9 G/DL CALC A/G RATIO (test code = 2234) 1.4 RATIO BILIRUBIN, TOTAL (test code = 2207) 0.6 MG/DL ALKALINE PHOSPHATASE (test code = 2204) 84 U/L AST (test code = 2218) 22 U/L ALT (test code = 2219) 21 U/L Jose Wilson AustinLIPID [id number] 00:00:00* Test Item Value Reference Range Interpretation Comme nts CHOLESTEROL (test code = 2210) 219 MG/DL TRIGLYCERIDES (test code = 2232) 151 MG/DL HDL CHOLESTEROL (test code = 2220) 55 MG/DL CALC LDL CHOL (test code = 2237) 134 MG/DL RISK RATIO LDL/HDL (test cod e = 2238) 2.43 RATIO Jose ArnoldTHYROID II PROFILE (T3U, T4, T7, TSH)[id number] 00:00:00* Test Item Value Reference Range Interpretation Comme nts T3 UPTAKE (test code = 2817) 30.0 % T4 (THYROXINE) (test code = 2819) 5.5 UG/DL CALCULATED T7 (FTI) (test co de = 2820) 1.65 TSH (test code = 2821) 2.46 UIU/ML Jose ArnoldHEMOGLOBIN [id number] 00:00:00* Test Item Value Reference Range Interpretation Comme nts HEMOGLOBIN A1c (test code = 80759) 5.4 % Jose ArnoldCBC W/AUTO [id number] 00:00:00* Test Item Value Reference Range Interpretation Comme nts WBC (test code = 1001) 6.2 K/UL [...] COUNT (test code = 1015) 229 K/UL Jose ArnoldCOMPREHENSIVE METABOLIC [id number] 00:00:00* Test Item Value Reference Range Interpretation Comme nts GLUCOSE (test code = 2217) 87 MG/DL BUN (test code = 2208) 11 MG/DL CREATININE (test code = 2214) 0.58 MG/DL eGFR AMER. (test cod e = 20786) 125 ML/MIN/1.73 eGFR NON- AMER. (test code = 84402) 107 ML/MIN/1.73 CALCULATED BUN/CREAT (test code = 2235) 19 RATIO SODIUM (test code = 2231) 141 MEQ/L POTASSIUM (test code = 2228) 4.3 MEQ/L CHLORIDE (test code = 2215) 105 MEQ/L CARBON DIOXIDE (test code = 2206) 26 MEQ/L CALCIUM (test code = 2209) 9.3 MG/DL PROTEIN, TOTAL (test code = 2229) 6.9 G/DL ALBUMIN (test code = 2201) 3.9 G/DL CALCULATED GLOBULIN (test code = 2240) 3.0 G/DL CALCULATED A/G RATIO (test code = 2234) 1.3 RATIO BILIRUBIN, TOTAL (test code = 2207) 0.4 MG/DL ALKALINE PHOSPHATASE (test code = 2204) 70 U/L SGOT (AST) (test code = 2218) 16 U/L SGPT (ALT) (test code = 2219) 18 U/L Jose ArnoldLIPID [id number] 00:00:00* Test Item Value Reference Range Interpretation Comme nts CHOLESTEROL (test code = 2210) 210 MG/DL TRIGLYCERIDES (test code = 2232) 121 MG/DL HDL CHOLESTEROL (test code = 2220) 50 MG/DL CALCULATED LDL CHOL (test co de = 2237) 136 MG/DL RISK RATIO LDL/HDL (test cod e = 2238) 2.72 RATIO Jose ArnoldCBC W/AUTO [id number] 00:00:00* Test Item Value Reference Range Interpretation Comme nts WBC (test code = 1001) 6.3 K/UL [...] COUNT (test code = 1015) 223 K/UL Jose ArnoldHEMOGLOBIN [id number] 00:00:00* Test Item Value Reference Range Interpretation Comme nts HEMOGLOBIN A1c (test code = 93706) 5.5 % Jose [id number] 00:00:00* Test Item Value Reference Range Interpretation Comme nts TSH (test code = 2821) 1.8 UIU/ML Jose Wilson ClaytonCOMPREHENSIVE METABOLIC [id number] 00:00:00* Test Item Value Reference Range Interpretation Comme nts GLUCOSE (test code = 2217) 68 MG/DL BUN (test code = 2208) 11 MG/DL CREATININE (test code = 2214) 0.5 MG/DL eGFR AMER. (test cod e = 16334) 159 ML/MIN/1.73 eGFR NON- AMER. (test code = 19389) 131 ML/MIN/1.73 CALCULATED BUN/CREAT (test code = 2235) 22 RATIO SODIUM (test code = 2231) 139 MEQ/L POTASSIUM (test code = 2228) 4.5 MEQ/L CHLORIDE (test code = 2215) 105 MEQ/L CARBON DIOXIDE (test code = 2206) 25 MEQ/L CALCIUM (test code = 2209) 9.4 MG/DL PROTEIN, TOTAL (test code = 2229) 7.0 G/DL ALBUMIN (test code = 2201) 4.1 G/DL CALCULATED GLOBULIN (test code = 2240) 2.9 G/DL CALCULATED A/G RATIO (test code = 2234) 1.4 RATIO BILIRUBIN, TOTAL (test code = 2207) 0.6 MG/DL ALKALINE PHOSPHATASE (test code = 2204) 63 U/L SGOT (AST) (test code = 2218) 18 U/L SGPT (ALT) (test code = 2219) 19 U/L Jose Wilson ClaytonLIPID [id number] 00:00:00* Test Item Value Reference Range Interpretation Comme nts CHOLESTEROL (test code = 2210) 219 MG/DL TRIGLYCERIDES (test code = 2232) 176 MG/DL HDL CHOLESTEROL (test code = 2220) 53 MG/DL CALCULATED LDL CHOL (test co de = 2237) 131 MG/DL RISK RATIO LDL/HDL (test cod e = 2238) 2.47 RATIO Jose Arnold Notes Date/Time Note Provider Source Jose Arnold [facility]"
[2023-12-13] MEDS ORDERED: FENTANYL CITR 100 MCG/2 ML ONE (18:37)
[2023-12-13] MEDS ORDERED: CLINDAMYCIN 600MG/D5W 50 ML IV ONE (18:38)
[2023-12-13] MEDS ORDERED: KETOROLAC 30 MG/ML INJ ONE (18:38)
[2023-12-13 19:09] LABS: Absolute Eosinophils 0.2 K/uL (0-0.5); Absolute Lymphocytes (CBC) 2.2 K/uL (0.7-4.9); Absolute Monocytes 0.6 K/uL (0.1-1.3); Absolute Neutrophil 3.8 K/uL (1.8-8.0); Basophils % 0.7 % (0-1.3); Eosinophils % 2.5 % (0-4.4); Hematocrit 44.9 % (36.0-45.0); Hemoglobin 15.2 g/dL (12.0-15.0); Lymphocytes % 31.8 % (15.3-44.8); MCH 30.9 pg (27.0-35.0); MCHC 33.8 g/dL (32.0-36.0); MCV 91.3 fL (80-100); MPV 9.4 fL (7.6-11.3); Monocytes % 9.3 % (3.3-12.3); Neutrophils % 55.7 % (41.7-73.7); Nucleated Red Blood Cells % 0.5 % (0-0); Platelets 205 thou/uL (152-406); RBC Red Blood Cell Count 4.91 M/uL (3.86-4.86); Red Cell Distribution Width 13.6 % (12.1-15.2)
[2023-12-13 19:20] LABS: Anion Gap 4.7 mEq/L (5.0-15.0); Potassium 3.7 mEq/L (3.5-5.1)
--- NOTE | 2023-12-13 20:04 | RAD REPORT ---
EXAM DESCRIPTION: CT - FC CLINICAL HISTORY: FACIAL PAIN COMPARISON: Head Brain Wo Cont dated 12/09/2022 TECHNIQUE: Axial thin cut CT images of the face were obtained following intravenous administration o f 100 mL Isovue-300, with sagittal and coronal reconstruction images. All CT scans are performed using dose optimization technique as appropriate and may include automated exposure control or mA/KV adjustment according to patient size. FINDINGS: Subcutaneous fat stranding along the right cheek soft tissues at the level of the upper ja w. Numerous periodontal lucencies and small periapical collections, with a small collection along the root of the right second maxillary premolar, demonstrating a small cortical defect along the buccal cortex (see axial image 45/94). No overlying discrete subperiosteal collection. An extraction cavity of the left second maxillary premolar is also seen. No acute facial bone fracture is seen. 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 This is st able in appearance. The mandible is otherwise intact. The globes and orbital contents are grossly unremarkable.The paranasal sinuses and mastoids are clear . IMPRESSION: Right cheek subcutaneous soft tissue inflammatory changes. Small periapical collection/a bscess along the root of the right second maxillary premolar may be the cause of the inflammation, de monstrating a small buccal cortex defect. No appreciable subperiosteal collection is noted in that re gion. Other findings as above.
--- NOTE | 2023-12-13 20:30 | ER ---
Nurse's Notes [facility] Name: Nat Reilly Age: 58 yrs Sex: Female : 1965 Arrival Date: 12/13/2023 Time: 18:08 Bed 15 Private MD: Diagnosis: Acute dental pain tooth #4, acute periapical abscess tooth #4, acute dental pain associated with pulpitis and dental decay Presentation: 12/12 18:18 Chief complaint: Patient states: c/o right facial and ear pain 11/17 that started today. me1 Some swelling noted to right face below eye. Hx of recent tooth extraction to rigjht upper molar. Coronavirus screen: Vaccine status: Patient reports receiving the 2nd dose of the covid vaccine. Ebola Screen: No symptoms or risks identified at this time. Initial Sepsis Screen: Does the patient meet any 2 criteria? No. Patient's initial sepsis screen is negative. Does the patient have a suspected source of infection?. Risk Assessment: Do you want to hurt yourself or someone else? Patient reports no desire to harm self or others. Onset of symptoms was December 13, 2023. 18:18 Method Of Arrival: Ambulatory me1 18:18 Acuity: KIRT 4 me1 Historical: - Allergies: 18:20 Amoxicillin; me1 18:20 Latex, Natural Rubber; me1 18:20 Hydrocodone-Acetaminophen; me1 - Home Meds: 19:16 Metoprolol Tartrate Oral [Active]; tl4 - PMHx: 18:20 Anxiety; Hypertension; me1 - PSHx: 18:20 section; Cholecystectomy; me1 - Immunization history:: Adult Immunizations up to date. - Infectious Disease History:: Denies. - Social history:: Smoking status: Patient denies any tobacco usage or history of. Screenin:13 [facility] ED Fall Risk Assessment (Adult) History of falling in the last 3 months, tl4 including since admission No falls in past 3 months (0 pts) Confusion or Disorientation No (0 pts) Intoxicated or Sedated No (0 pts) Impaired Gait No (0 pts) Mobility Assist Device Used No (0 pt) Altered Elimination No (0 pt) Score/Fall Risk Level 0 - 2 = Low Risk Oriented to surroundings, Maintained a safe environment, Educated pt \T\ family on fall prevention, incl call for assistance when getting out of bed, Assessed \T\ reinforced patient's understanding of fall precautions. Abuse screen: Denies threats or abuse. Denies injuries from another. Nutritional screening: No deficits noted. Tuberculosis screening: No symptoms or risk factors identified. Assessment: 19:07 General: Appears distressed, uncomfortable, Behavior is calm, cooperative. Pain: tl4 Complains of pain in face. Neuro: Level of Consciousness is awake, alert, obeys commands, Oriented to person, place, time, situation, Moves all extremities. Full function Gait is steady, Speech is normal, Facial symmetry appears normal. Cardiovascular: Capillary refill < 3 seconds Patient's skin is warm and dry. Respiratory: Airway is patent Respiratory effort is even, unlabored, Respiratory pattern is regular, symmetrical, Breath sounds are clear bilaterally. GI: No signs and/or symptoms were reported involving the gastrointestinal system. : No signs and/or symptoms were reported regarding the genitourinary system. EENT: swelling to right cheek. Reports pain in right cheek. Derm: No signs and/or symptoms reported regarding the dermatologic system. Musculoskeletal: No signs and/or symptoms reported regarding the musculoskeletal system. 19:31 Reassessment: Patient appears in no apparent distress at this time. Patient and/or tm6 family updated on plan of care and expected duration. Pain level reassessed. Patient is alert, oriented x 3, equal unlabored respirations, skin warm/dry/pink. 20:50 Reassessment: discharge pending completion of IV antibiotics. tm6 Vital Signs: 18:18 BP 177 / 85; Pulse 71; Resp 16; Temp 98.6; Pulse Ox 96% ; Weight 115.21 kg; Height 5 me1 ft. 1 in. ; Pain 7/10; 19:15 BP 139 / 87; Pulse 70; Resp 17; Pulse Ox 98% on R/A; tl4 19:30 BP 120 / 72; Pulse 66; Pulse Ox 99% on R/A; Pain 5/10; tm6 21:07 BP 146 / 80; Pulse 66; Resp 19; Temp 98.6; Pulse Ox 99% on R/A; Pain 4/10; tm6 18:18 Body Mass Index 47.99 (115.21 kg, 154.94 cm) me1 18:18 Pain Scale: Adult me1 19:30 Pain Scale: Adult tm6 21:07 Pain Scale: Adult tm6 ED Course: 18:11 Patient arrived in ED. im 18:13 David Sweeney MD is Attending Physician. ec2 18:20 Triage completed. me1 18:20 Arm band placed on Patient placed in an exam room. me1 19:02 BMP Sent. tl4 19:02 CBC with Diff Sent. tl4 19:03 Attending Physician role handed off by David Sweeney MD ec2 19:03 Duglas Mendez MD is Attending Physician. ec2 19:13 Patient has correct armband on for positive identification. Bed in low position. Call tl4 light in reach. Side rails up X 1. Provided Education on: ed process, call santamaria. Client placed on continuous cardiac and pulse oximetry monitoring. NIBP monitoring applied. Door closed. Noise minimized. Lights dimmed. Moved to private room. Warm blanket given. 19:15 No provider procedures requiring assistance completed. Initial lab(s) drawn, by tn, tl4 sent to lab. Inserted saline lock: 22 gauge in left forearm, using aseptic technique. Blood collected. Flushed with 10 mL NS. 19:20 Gael Oliva, RN is Primary Nurse. tm6 19:48 Maxillofacial W/Cont CT In Process Unspecified. EDMS 20:28 Bon Treviño DDS is Referral Physician. sp4 21:08 IV discontinued, intact, bleeding controlled, No redness/swelling at site. Pressure tm6 dressing applied. Administered Medications: 19:03 Drug: fentaNYL (PF) IVP 25 mcg IVP once Route: IVP; Site: left forearm; tl4 19:03 Drug: Clindamycin IVPB 600 mg IVPB once over 30 mins; (mix in 50 mL) Route: IVPB; tl4 Infused Over: 30 mins; Site: left forearm; 19:03 Drug: Ketorolac IVP 15 mg IVP once Route: IVP; Site: left forearm; tl4 20:50 Drug: traMADol PO 100 mg PO once Route: PO; tm6 20:50 Drug: Ibuprofen PO 800 mg PO once Route: PO; tm6 20:50 Drug: Ondansetron IVP 4 mg IVP once; over 2 minutes Route: IVP; Site: left forearm; tm6 20:50 Drug: Rocephin - Rocephin (cefTRIAXone) IVPB 1 grams IVPB once over 30 mins; (mix in 50 tm6 mL NS) Route: IVPB; Infused Over: 30 mins; Site: left forearm; Medication: 19:16 VIS not applicable for this client. tl4 Outcome: 20:28 Discharge ordered by . sp4 21:08 Discharged to home ambulatory, with family, tm6 21:08 Condition: stable 21:08 Discharge instructions given to patient, Instructed on discharge instructions, follow up and referral plans. medication usage, Demonstrated understanding of instructions, follow-up care, medications, Prescriptions given X 4, 21:08 Patient left the ED. tm6 Signatures: Dispatcher [employer] EDMS Duglas Mendez MD MD sp4 Naima Campbell Michelle, RN RN me1 David Sweeney MD MD ec2 Gael Oliva, RN RN tm6 Bird Amado RN RN tl4 Corrections: (The following items were deleted from the chart) 18:21 18:20 PSHx: None; me1 me1
--- NOTE | 2023-12-13 20:30 | EDPHYS ---
Physician Documentation [facility] Name: Nat Reilly Age: 58 yrs Sex: Female : 1965 Arrival Date: 12/13/2023 Time: 18:08 Bed 15 Private MD: ED Physician Duglas Mendez HPI: 12/12 18:33 This 58 yrs old Female presents to ER via Ambulatory with complaints of Facial ec2 Swelling, Pain - facial, Ear Pain. 18:33 Patient arrives today for evaluation of right facial pain. Patient reports that she ec2 recently had a dental procedure where she had multiple teeth extracted in the right upper teeth. States that now she is having worsening pain in the right maxillary area with swelling to the face. No fevers, no chills. Patient reports the pain is worsened.. Historical: - Allergies: 18:20 Amoxicillin; me1 18:20 Latex, Natural Rubber; me1 18:20 Hydrocodone-Acetaminophen; me1 - Home Meds: 19:16 Metoprolol Tartrate Oral [Active]; tl4 - PMHx: 18:20 Anxiety; Hypertension; me1 - PSHx: 18:20 section; Cholecystectomy; me1 - Immunization history:: Adult Immunizations up to date. - Infectious Disease History:: Denies. - Social history:: Smoking status: Patient denies any tobacco usage or history of. ROS: 18:33 Constitutional: as per hpi ec2 Exam: 18:33 Constitutional: GEN: NAD Head: atraumatic Eyes: EOMI Ears: External ears are ec2 normal. CV: regular rate LUNGS: no respiratory distress ABD: non-distended SKIN: Right maxillary swelling and erythema along with warmth and TTP no significant fluctuance appreciated MSK: no evidence of trauma NEURO: moves all extremities equally Vital Signs: 18:18 BP 177 / 85; Pulse 71; Resp 16; Temp 98.6; Pulse Ox 96% ; Weight 115.21 kg; Height 5 me1 ft. 1 in. ; Pain 7/10; 19:15 BP 139 / 87; Pulse 70; Resp 17; Pulse Ox 98% on R/A; tl4 19:30 BP 120 / 72; Pulse 66; Pulse Ox 99% on R/A; Pain 5/10; tm6 21:07 BP 146 / 80; Pulse 66; Resp 19; Temp 98.6; Pulse Ox 99% on R/A; Pain 4/10; tm6 18:18 Body Mass Index 47.99 (115.21 kg, 154.94 cm) me1 18:18 Pain Scale: Adult me1 19:30 Pain Scale: Adult tm6 21:07 Pain Scale: Adult tm6 MDM: 18:14 Patient medically screened. ec2 18:34 Data reviewed: vital signs. ED course: Patient arrives today d/t concern for R facial ec2 pain. exam pertinent for facial findings as above. will obtain lab work, ct max w/ contrast, treat the pt's pain and reassess. ddx includes dental abscess, maxillary abscess, facial cellulitis. will give abx as well. . 18:36 ED course: Will sign patient out to oncoming physician with pending labs and CT scan.. ec2 20:26 ED course: EXAM DESCRIPTION: CT - FC CLINICAL HISTORY: FACIAL PAIN COMPARISON: Head sp4 Brain Wo Cont dated 12/09/2022 TECHNIQUE: Axial thin cut CT images of the face were obtained following intravenous administration of 100 mL Isovue-300, with sagittal and coronal reconstruction images. All CT scans are performed using dose optimization technique as appropriate and may include automated exposure control or mA/KV adjustment according to patient size. FINDINGS: Subcutaneous fat stranding along the right cheek soft tissues at the level of the upper jaw. Numerous periodontal lucencies and small periapical collections, with a small collection along the root of the right second maxillary premolar, demonstrating a small cortical defect along the buccal cortex (see axial image 45/94). No overlying discrete subperiosteal collection. An extraction cavity of the left second maxillary premolar is also seen. No acute facial bone fracture is seen. 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 This is stable in appearance. The mandible is otherwise intact. The globes and orbital contents are grossly unremarkable.The paranasal sinuses and mastoids are clear. IMPRESSION: Right cheek subcutaneous soft tissue inflammatory changes. Small periapical collection/abscess along the root of the right second maxillary premolar may be the cause of the inflammation, demonstrating a small buccal cortex defect. No appreciable subperiosteal collection is noted in that region. Other findings as above.. 20:35 ED course: He has revealed periapical abscess tooth #4 but no drainable gingival sp4 abscess. Patient was given 10 days of cephalexin and as needed pain meds and referred to the local dentist.. . 12/12 18:33 Order name: CBC with Diff; Complete Time: 19:54 ec2 12/12 18:33 Order name: BMP; Complete Time: 19:54 ec2 12/12 18:33 Order name: Maxillofacial W/Cont CT; Complete Time: 20:09 ec2 Administered Medications: 19:03 Drug: fentaNYL (PF) IVP 25 mcg IVP once Route: IVP; Site: left forearm; tl4 19:03 Drug: Clindamycin IVPB 600 mg IVPB once over 30 mins; (mix in 50 mL) Route: IVPB; tl4 Infused Over: 30 mins; Site: left forearm; 19:03 Drug: Ketorolac IVP 15 mg IVP once Route: IVP; Site: left forearm; tl4 20:50 Drug: traMADol PO 100 mg PO once Route: PO; tm6 20:50 Drug: Ibuprofen PO 800 mg PO once Route: PO; tm6 20:50 Drug: Ondansetron IVP 4 mg IVP once; over 2 minutes Route: IVP; Site: left forearm; tm6 20:50 Drug: Rocephin - Rocephin (cefTRIAXone) IVPB 1 grams IVPB once over 30 mins; (mix in 50 tm6 mL NS) Route: IVPB; Infused Over: 30 mins; Site: left forearm; Disposition Summary: 12/13/23 20:28 Discharge Ordered Notes: Location: Home sp4 Problem: new sp4 Symptoms: have improved sp4 Condition: Stable sp4 Diagnosis - Acute dental pain tooth #4, acute periapical abscess tooth #4, acute dental pain sp4 associated with pulpitis and dental decay Followup: sp4 - With: Bon Treviño DDS - When: 7 - 10 days - Reason: Recheck today's complaints Discharge Instructions: - Discharge Summary Sheet sp4 - Diet and Dental Disease sp4 Forms: - Patient Portal Instructions sp4 Prescriptions: - tramadol 100 mg Oral tablet - take 1 tablet ORAL route every 8 hours as needed for pain; 20 tablet; Refills: sp4 0, Product Selection Permitted - Cephalexin 500 mg Oral Capsule - take 1 capsule ORAL route every 8 hours for 10 days; 30 capsule; Refills: 0, sp4 Product Selection Permitted - Ibuprofen 800 mg Oral Tablet - take 1 tablet ORAL route every 8 hours As needed take with food; 30 tablet; sp4 Refills: 0, Product Selection Permitted - ondansetron 8 mg Oral Tablet,disintegrating - take 1 tablet ORAL route every 8 hours PRN nausea; 30 tablet; Refills: 0, sp4 Product Selection Permitted Signatures: Dispatcher [employer] EDDuglas Jo MD MD sp4 Xiao Bartholomew RN RN me1 David Sweeney MD MD ec2 Gael Oliva, RN RN tm6 Bird Amado RN RN tl4 Corrections: (The following items were deleted from the chart) 18:21 18:20 PSHx: None; me1 me1 18:33 18:33 CBC+H.LAB.BRZ ordered. EDMS EDMS 18:33 18:33 BASIC METABOLIC PANEL+C.LAB.BRZ ordered. EDMS EDMS 18:33 18:33 Maxillofacial W/Cont+CT.RAD.BRZ ordered. EDMS EDMS 18:35 18:33 Constitutional: No acute distress ec2 ec2
[2023-12-13] MEDS ORDERED: CEFTRIAXONE 1000 MG/VIAL ONE (20:41)
[2023-12-13] MEDS ORDERED: ONDANSETRON 4 MG/2 ML VIAL ONE (20:41)
[2023-12-13] MEDS ORDERED: IBUPROFEN 400 MG TAB ONE (20:41)
[2023-12-13] MEDS ORDERED: TRAMADOL HCL 50 MG TAB ONE (20:42)
[2023-12-13] MEDS ORDERED: NA CHLORIDE 0.9% 50 ML ONE (20:42)
[2023-12-14 01:27] VITALS: TEMP 98.6
[2023-12-14 01:38] VITALS: O2SAT 99
[2023-12-14 01:43] VITALS: BP 146/80
== END 2023-12-13 21:08 | disposition home or self-care (01) ==
LOC: ER 18:08
DX: K04.7 Periapical abscess without sinus (principal); K04.01 Reversible pulpitis; K02.9 Dental caries, unspecified
CPT/HCPCS: 85025; 80048; 36415; 70487; 96375; 96374; 99284; Q9967; J3010; J2405; J0696

== ENCOUNTER 2024-07-08 09:33 | Emergency (ER) | payer OTHER ==
--- OUTSIDE RECORDS SUMMARY | 2024-07-08 09:47 | XMS REPORT | Continuity of Care Document ---
Author Name Unknown Address [address] [facility] [place] [place] [address] [facility] [address] [facility] [place] [place] [address] Care Team Providers Care Learning Strategist Name Role Phone Pcp, Patient Does Not Have A Primary Care Physic jass Randolph Chaudhary Attending Clinician [phone] RADIOLOGY Attending Clinician Unavailable CARLOS ALBERTO COBB Attending Clinician Unava ilBHUMIKA Ortez Attending Clinician Unavaila BHUMIKA Griffith T Attending Clinician Unavaila karie Yang, Janneth Attending Clinician [phone] Doctor Unassigned, Cameron Attending Clinician U SOUMYA Canela Attending Clinician Unavailab MICHAEL Henry Attending Clinician Unavailable Michael Riley Attending Clinician [phone] Evaristo Gabriel MD Attending Clinician [phone] CHERYL ESPINOZA Attending Clinician Unavail able Cheryl Villanueva Attending Clinician + EVARISTO GABRIEL Attending Clinician Unavailable CHARLOTTE MURPHY Attending Clinician Unavailable Mitra Barajas NP Attending Clinician [phone] Charlotte Murphy MD Attending Clinician [phone] REBEKA AG Attending Clinician Unavail able Bogdan MATISAAnni S Attending Clinician Soumya Stanton Attending Clinician MICHAEL MUELLER Admitting Clinician Unavailable CHARLOTTE MURPHY Admitting Clinician Unavailable Charlotte Murphy MD Admitting Clinician [phone] Payers Payer Name Policy Type Policy Number Effective Date Expirati on Date Source AETNA W/ KRUPA YBOLD OOO [id number] 2023 00:00:00 [employer] MP [facility] [employer] H[employer] 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 ON 9 [id number] 2023 00:00:00 MEDICAID ALIEN PENDING PENDING 2021 00:00:00 Problems Condition Name Condition Details Condition Category Status Onset Date Resolution Date Last Treatment Date Treating Clinician Comments Source Dyslipidem ia Dyslipidem ia Disease Active 2020-05 00:00: 00 [facility] Left arm pain Left arm pain Disease Active 2020-05 00:00: 00 [facility] Atypical chest pain Atypical chest pain Disease Active 2020-05 00:00: 00 [facility] BMI 50.0-59.9, adult BMI 50.0-59.9, adult Disease Active 11-29 00:00: 00 [facility] Encounter for surveillan ce of contracept jacqueline, unspecifie d contracept alycia Encounter for surveillan ce of contracept jacqueline, unspecifie d contracept alycia Disease Active 11-29 00:00: 00 [facility] Well woman exam Well woman exam Disease Active 11-29 00:00: 00 [facility] Essential hypertensi on Essential hypertensi on Disease Active 02-05 00:00: 00 [facility] Breast tenderness in female Breast tenderness in female Disease Active 06-12 00:00: 00 [facility] Generalize d anxiety disorder Generalize d anxiety disorder Disease Active 06-12 00:00: 00 [facility] Encounter for routine gynecologi yady examinatio n Encounter for routine gynecologi yady examinatio n Disease Recurre nce 07-07 00:00: 00 Overview: Formattin g of this note might be different from the original. ICD10 Diagnosis Term [employer] [facility] Gastroesop hageal reflux disease without esophagiti s Gastroesop hageal reflux disease without esophagiti s Disease Resolve d 9-28 00:00: 00 2018-11-29 00:00:00 2018-11-29 14:37:53 [facility] Surveillan ce of previously prescribed contracept alycia method Surveillan ce of previously prescribed contracept alycia method Disease Resolve d 06-12 00:00: 00 2018-11-29 00:00:00 2021-11-24 00:34:19 [facility] H/O tubal ligation H/O tubal ligation Disease Resolve d 06-12 00:00: 00 2018-11-29 00:00:00 2018-11-29 14:37:52 [facility] Morbid obesity Morbid obesity Disease Resolve d 07-07 00:00: 00 2018-11-29 00:00:00 2018-11-29 14:38:04 [facility] Uterovagin al prolapse, incomplete Uterovagin al prolapse, incomplete Disease Resolve d 07-07 00:00: 00 2014-06-12 00:00:00 2014-06-12 15:29:46 [facility] Vitiligo Vitiligo Disease Resolve d 07-07 00:00: 00 2014-06-12 00:00:00 2014-06-12 15:29:43 [facility] Allergies, Adverse Reactions, Alerts Allergy Name Allergy Type Status Severity Reaction(s) Onset Date Inactive Date Treating Clinician Comments Source Amoxicil nikki-Pot Clavulan ate - Oral Propensi ty to adverse reaction to drug Active 12-19 00:00: 00 Jose Arnold Demetiro Inhibito rs Propensi ty to adverse reaction to drug Inactiv e 2016-05 00:00: 00 Jose rAnold NO KNOWN ALLERGIE S Drug Class Active 06-01 00:00: 00 [facility] No Known Allergie s Propensi ty to adverse reaction s Active 06-01 00:00: 00 [facility] Social History Social Habit Start Date Stop Date Quantity Comments Source Gender identity [facility] Exposure to SARS-CoV-2 (event) 2021-09-14 00:00:00 2021-09-24 22:26:00 Not sure [facility] Alcohol intake 2021-09-24 00:00:00 2021-09-24 00:00:00 Current non-drinker of alcohol (finding) [facility] History of Social function 2018-11-29 00:00:00 2018-11-29 00:00:00 [facility] Tobacco use and exposure 2017-02-06 00:00:00 2017-02-06 00:00:00 Smokeless tobacco non-user [facility] Sex assigned at 1965 00:00:00 1965 00:00:00 [facility] Smoking Status Start Date Stop Date Source Tobacco smoking consumption unknown [facility] Never smoked tobacco [facility] Medications Ordered Medication Name Filled Medication Name Start Date Stop Date Current Medication? Ordering Clinician Indication Dosage Frequency Signature (SIG) Comments Components Source albuterol sulfate HFA 90 mcg/actuati on aerosol inhaler 06-27 00:00: 00 Yes 12mcg/a ctuatio n Jose Arnold albuterol sulfate 1.25 mg/3 mL solution for nebulizatio n 06-27 00:00: 00 Yes 1mg/3 mL Jose Arnold cetirizine 10 mg tablet 06-27 00:00: 00 Yes 1mg Jose Steve Arnold benzonatate 200 mg capsule 06-27 00:00: 00 Yes 1mg Jose Arnold gabapentin 100 mg capsule 2023-05 00:00: 00 Yes 12mg Jose Steve Arnold ciprofloxac in 0.3 %-dexametha sone 0.1 % ear drops,suspe nsion 2023-05 00:00: 00 Yes 4% Jose Arnold metoprolol tartrate 50 mg tablet 2023-05 00:00: 00 Yes mg Jose Arnold hydrochloro thiazide 12.5 mg tablet 2023-05 00:00: 00 Yes mg Jose Arnold albuterol sulfate HFA 90 mcg/actuati on aerosol inhaler 2023-05 00:00: 00 Yes 12mcg/a ctuatio n Jose Arnold Bromfed DM 2 mg-30 mg-10 mg/5 mL oral syrup 2023-05 00:00: 00 Yes 10mg/5 mL Jose Arnold ondansetron 4 mg disintegrat ing tablet 2023-05 00:00: 00 Yes 1mg Jose Arnold pantoprazol e 40 mg tablet,jessica yed release 01-04 00:00: 00 Yes mg Jose Arnold metoprolol tartrate 50 mg tablet 01-04 00:00: 00 Yes mg Jose Arnold hydrochloro thiazide 12.5 mg tablet 01-04 00:00: 00 Yes mg Jose Arnold Zanaflex 4 mg tablet 01-04 00:00: 00 Yes 1mg Jose Arnold ibuprofen 800 mg tablet 01-04 00:00: 00 Yes 1mg Jose Arnold fluconazole 150 mg tablet 12-23 00:00: 00 Yes mg Jose Arnold DULOXETINE 30MG DR 09-15 00:00: 00 Yes 30 Jose Arnold DICYCLOMINE 20MG 09-15 00:00: 00 Yes 20 Jose Arnold pantoprazol e 40 mg tablet,jessica [...] pantoprazol e 40 mg tablet,jessica yed release - 00:00: 00 Yes mg Jose Arnold metoprolol tartrate 50 mg tablet - 00:00: 00 Yes mg Jose Arnold hydrochloro thiazide 12.5 mg tablet 06-13 00:00: 00 Yes mg Jose Arnold TAKE 1 TABLET DAILY. 06-13 00:00: 00 Yes 40 Jose Arnold METHYLPRED 4MG DPAK 06-13 00:00: 00 Yes Jose Arnold BROM/PSE/DM SYP 2 00:00: 00 Yes Jose Arnold USE DIRECTED TOPICALLY 06-13 00:00: 00 Yes Jose Arnold TAKE 10 ML EVERY 4-6 HOURS NEEDED 06-13 00:00: 00 09-17 00:00 :00 No [id number] Jose Arnold USE TOPICALLY DIRECTED. 06-13 00:00: 00 09-17 00:00 :00 No 4 Jose Arnold TAKE DIRECTED. 06-13 00:00: 00 09-17 00:00 :00 No 4 Jose Arnlod PANTOPRAZOL E 40MG DR 2022-05 00:00: 00 Yes Jose Arnold TAKE 1 TABLET BY MOUTH ONCE DAILY 2022-05 00:00: 00 Yes Jose Arnold duloxetine 30 mg capsule,del ayed release 2022-05 00:00: 00 Yes mg Jose Arnold TAKE 1 TABLET BY MOUTH ONCE DAILY 2022-05 00:00: 00 Yes Jose Arnold TAKE 1 TABLET DAILY. 2022-05 00:00: 00 09-17 00:00 :00 No 75 Jose Arnold TAKE 1 TABLET TWICE DAILY. 2022-05 00:00: 00 09-17 00:00 :00 No 50 Jose F Clayton TAKE 1 TABLET DAILY IN THE MORNING. 2022-05 00:00: 00 09-17 00:00 :00 No 125 Jose F Clayton TAKE 1 TABLET DAILY. 2022-05 00:00: 00 09-17 00:00 :00 No 40 Jose F Clayton TAKE 1 TABLET DAILY IN THE MORNING. 18 00:00: 00 09-17 00:00 :00 No 125 Jose F Clayton TAKE 1 TABLET TWICE DAILY. 12-12 00:00: 00 09-17 00:00 :00 No 50 Jose F Clayton TAKE 1 TABLET DAILY. 12-12 00:00: 00 09-17 00:00 :00 No 25 Jose F Clayton TAKE 1 TABLET 3 TIMES DAILY. 11-08 00:00: 00 09-17 00:00 :00 No 1 Jose F Clayton TAKE 1 TO 2 CAPSULES 3 TIMES DAILY NEEDED. 11-08 00:00: 00 09-17 00:00 :00 No 100 Jose F Clayton TAKE 1 TABLET EVERY 8 HOURS WITH FOOD NEEDED. 11-08 00:00: 00 09-17 00:00 :00 No 800 Jose F Clayton METOPROL TAR 50MG 09-20 00:00: 00 Yes Jose Steve Arnold TAKE 1 TABLET DAILY. 09-20 00:00: 00 09-17 00:00 :00 No 25 Jose F Clayton TAKE 5 ML EVERY 4 TO 6 HOURS NEEDED. 09-20 00:00: 00 09-17 00:00 :00 No [id number] Jose F Clayton TAKE 1 TABLET AT BEDTIME. 09-20 00:00: 00 09-17 00:00 :00 No 10 Jose F Clayton TAKE ONE TABLET IN THE MORNING AND HALF A TABLET IN THE EVENING 4-19 00:00: 00 09-17 00:00 :00 No 50 Jose F Clayton INHALE 2 PUFFS EVERY 4-6 HOURS, SPACED 60 SECONDS APART. 08-27 00:00: 00 09-17 00:00 :00 No [id number] Jose F Clayton Dose Unknown 2021-05 00:00: [...] EVERY 6 HOURS NEEDED. 2021-05 00:00: 00 09-17 00:00 :00 No Jose F Clayton TAKE 2 CAPSULES 3 TIMES DAILY. 2021-05 00:00: 00 09-17 00:00 :00 No Jose Steve Arnold 10 ML Q 4 TO 6 HOURS PRN COUGH FOR 5 DAYS 2021-05 00:00: 00 09-17 00:00 :00 No Jose F Clayton TAKE 2 TABS DAY 1 AND 1 TAB DAY 2-5 2021-05 00:00: 00 09-17 00:00 :00 No Jose F Clayton TAKE 1 TABLET DAILY DIRECTED. 2021-05 00:00: 00 09-17 00:00 :00 No Jose Steve Arnold TAKE 1 TABLET DAILY. 2021-05 00:00: 00 09-17 00:00 :00 No Jose F Clayton TAKE ONE TABLET IN THE MORNING AND HALF A TABLET IN THE EVENING 2021-05 00:00: 00 09-17 00:00 :00 No Jose F Clayton Dose Unknown 2021-05 00:00: 00 09-17 00:00 :00 No Jose F Clayton Dose Unknown 2021-05 00:00: 00 09-17 00:00 :00 No Jose F Clayton TAKE 1 TABLET BID NEEDED 01-30 00:00: 00 09-17 00:00 :00 No Jose F Clayton TAKE 1 TABLET BID NEEDED 17 00:00: 00 Yes 600 Jose Arnold Dose Unknown 8-11 00:00: 00 Yes Jose Arnold Dose Unknown 11-29 00:00: 00 Yes Jose Arnold Dose Unknown 11-29 00:00: 00 Yes Jose Arnold Dose Unknown 11-25 00:00: 00 Yes Jose Arnold Dose Unknown 11-25 00:00: 00 Yes Jose Arnold TAKE 1 TABLET TWICE DAILY WITH FOOD. 11-24 00:00: 00 Yes [id number] Jose Arnold TAKE 1 TABLET BID NEEDED 11-12 00:00: 00 Yes 600 Jose Arnold proMETHazin e (PHENERGAN) injection 25 mg 09-25 09:00: 00 09-25 08:07 :00 No 25mg 25 mg, Intramuscu lar, ONCE, 1 dose, [facility]/25/21 [facility] 0400[facility] (LEVSIN/SL) sublingual tablet 0.125 mg 09-25 09:00: 00 09-25 08:07 :00 No .125mg 0.125 mg, Sublingual , ONCE NOW, 1 dose, On Thu09/25/21 at 0400, Routine [facility] maalox:diph enhydrAMINE :lidocaine 2 % viscous 1:1:1 ([facility]) oral suspension 15 mL 09-25 08:15: 00 09-25 07:45 :00 No 15mL 15 mL, Oral, ONCE, 1 dose, On Thu09/25/21 at 0315, Routine [facility] metoclopram sacha HCl (REGLAN) injection 10 mg 09-25 07:30: 00 09-25 06:35 :00 No 10mg 10 mg, Slow IV Push, ONCE, 1 dose, [facility] Thu09/25/21 at 0230[facility] iop[facility] (ISOVUE 370-500 mL) injection 120 mL 09-25 07:15: 00 09-25 05:59 :00 No [id number] 120mL 120 mL, Intravenou s, ONCE, 1 dose, On Thu09/25/21 at 0215, Routine [facility] FENTanyl PF (SUBLIMAZE (PF)) injection 50 mcg 09-25 05:15: 00 09-25 04:51 :00 No 50ug 50 mcg, Slow IV Push, ONCE, 1 dose, On Thu09/25/21 at 0015, STAT [facility] ondansetron (ZOFRAN (PF)) injection 4 mg 09-25 05:15: 09-25 04:51 :00 No 4mg 4 mg, Slow IV Push, ONCE, 1 dose, On Thu09/25/21 at 0015, ROZ [facility] NaCl 0.9% (NS) bolus infusion 1,000 mL 09-25 05:15: 09-25 08:50 :00 No 1000mL at 999 mL/hr, 1,000 mL, IV Infusion, ONCE, 1 dose, On Thu09/25/21 at 0015, ROZ [facility] dicyclomine 10 mg capsule 09-25 00:00: 00 Yes [id number] 10mg Take 1 capsule by mouth 4 (four) times daily. [facility] proMETHazin e 25 mg tablet 09-25 00:00: 00 Yes [id number] 25mg Take 1 tablet by mouth every 6 (six) hours as needed for Nausea and Vomiting (N/V). [facility] traMADoL 50 mg tablet 09-25 00:00: 00 10-03 04:59 :00 No [id number] 50mg Take 1 tablet by mouth every 6 (six) hours as needed for Pain (scale 7-10) for up to 7 days. Indication s: acute pain [facility] Dose Unknown 09-21 00:00: 00 Yes Jose Arnold Dose Unknown 09-21 00:00: 00 Yes Jose Arnold metoprolol tartrate 50 mg tablet 08-09 00:00: 00 Yes [id number] 50mg Take 1 tablet by mouth 2 (two) times daily. [facility] metoprolol tartrate 50 mg tablet 08-06 00:00: 00 Yes mg Jose F Clayton Dose Unknown 08-06 00:00: 00 Yes Jose F Clayton Dose Unknown 08-06 00:00: 00 Yes Jose F Clayton Dose Unknown 08-06 00:00: 00 Yes Jose F Clayton metoprolol tartrate 50 mg tablet 06-10 15:26: 10 06-10 00:00 :00 No 50mg Take 50 mg by mouth 2 (two) times daily. Take 1 tablet in the morning and one half in the evening [facility] ALBUTEROL SULFATE INHALE 06-10 15:09: 34 Yes Inhale. [facility] acetaminoph en (TYLENOL ORAL) 06-10 15:09: 34 Yes Take by mouth. [facility] omeprazole 10 mg capsule 06-10 15:06: 28 Yes 40mg Take 40 mg by mouth daily. [facility] metoprolol tartrate 50 mg tablet 06-10 00:00: 00 08-09 00:00 :00 No [id number] 50mg Take 1 tablet by mouth 2 (two) times daily. [facility] Dose Unknown 06-03 00:00: 00 Yes Jose F Clayton Dose Unknown 06-03 00:00: 00 Yes Jose F Clayton TAKE 1 TABLET BID NEEDED 2020-05 00:00: 00 Yes Jose F Clayton metoprolol tartrate 50 mg tablet 2020-05 00:00: 00 Yes mg Jose F Clayton Dose Unknown 2020-05 00:00: 00 Yes Jose F Clayton Dose Unknown 01-31 00:00: 00 Yes Jose F Clayton Dose Unknown 01-10 00:00: 00 Yes Jose F Clayton Dose Unknown 9-02 00:00: 00 Yes Jose F Clayton Dose Unknown 8-16 00:00: 00 Yes Jose F Clayton ondansetron 4 mg disintegrat ing tablet 7-14 00:00: 00 Yes 1mg Jose Arnold metoprolol tartrate 50 mg tablet 0 6-22 00:00: 00 Yes mg Jose Arnold metoprolol tartrate 50 mg tablet 5-25 00:00: 00 Yes mg Jose Arnold metoprolol tartrate 50 mg tablet 3-24 00:00: 00 Yes mg Jose Arnold Dexilant 60 mg capsule, delayed release 3-24 00:00: 00 Yes 1mg Jose Arnold metoprolol tartrate 50 mg tablet 2-18 00:00: 00 Yes mg Jose Arnold Dose Unknown 2-18 00:00: 00 Yes Jose Arnold omeprazole 40 mg capsule,del ayed release 2-18 00:00: 00 Yes 1mg Jose Arnold metoprolol tartrate 50 mg tablet 1-14 00:00: 00 Yes mg Jose Arnold omeprazole 40 mg capsule,del ayed release 2019-05 2-30 00:00: 00 Yes 1mg Jose Arnold duloxetine 30 mg capsule,del ayed release 2019-05 214 00:00: 00 Yes 1mg Jose Arnold metoprolol tartrate 50 mg tablet 2019-05 0-14 00:00: 00 Yes mg Jose Arnold nystatin 100,000 unit/mL oral suspension 2019-05 0-14 00:00: 00 Yes 5unit/m L Jose Arnold clindamycin HCl 300 mg capsule 9-21 00:00: 00 Yes 1mg Jose Arnold nystatin 100,000 unit/mL oral suspension 18 00:00: 00 Yes 5unit/m L Jose Arnold Augmentin 875 mg-125 mg tablet - 00:00: 00 Yes 1mg Jose Arnold metoprolol tartrate 50 mg tablet 01-02 00:00: 00 Yes mg Jose Arnold ProAir HFA 90 mcg/actuati on aerosol inhaler 8-05 00:00: 00 Yes 2mcg/ac tuation Jose Arnold prednisone 50 mg tablet 0 8-05 00:00: 00 Yes 1mg Jose Arnold omeprazole 40 mg capsule,del ayed release 0 8-05 00:00: 00 Yes 1mg Jose Arnold loratadine 10 mg tablet 0 430 00:00: 00 Yes 1mg Jose Arnold amoxicillin 875 mg tablet 0 430 00:00: 00 Yes 1mg Jose Arnold prednisone 50 mg tablet 3- 00:00: 00 Yes 1mg Jose Arnold ProAir HFA 90 mcg/actuati on aerosol inhaler 2- 00:00: 00 Yes 2mcg/ac tuation Jose Arnold metoprolol tartrate 50 mg tablet 2 00:00: 00 Yes mg Jose Arnold omeprazole 40 mg capsule,del ayed release 07-06 00:00: 00 Yes 1mg Jose Arnold Tessalon Perles 100 mg capsule 2 00:00: 00 Yes 12mg Jose Arnold metoprolol tartrate 50 mg tablet 06-01 00:00: 00 Yes mg Jose Arnold metoprolol tartrate 50 mg tablet 2018-05 207 00:00: 00 Yes mg Jose Arnold metoprolol tartrate 50 mg tablet 2018-05 0 00:00: 00 Yes mg Jose Arnold triamcinolo ne acetonide 0.1 % topical cream 2018-05 0 00:00: 00 Yes 1% Jose Arnold metoprolol tartrate 50 mg tablet 2018-05 029 00:00: 00 Yes 1mg Jose Arnold prednisone 20 mg tablet 2018-05 029 00:00: 00 Yes mg Jose Arnold metoprolol tartrate 50 mg tablet 9-10 00:00: 00 Yes 1mg Jose Arnold metoprolol tartrate 50 mg tablet 6-03 00:00: 00 Yes 1mg Jose Arnold ranitidine 150 mg capsule 6-03 00:00: 00 Yes 1mg Jose Arnold ranitidine 150 mg capsule 5-02 00:00: 00 Yes 1mg Jose Arnold metoprolol tartrate 50 mg tablet 2-16 00:00: 00 Yes 1mg Jose Arnold amoxicillin 875 mg tablet 2-15 00:00: 00 Yes 1mg Jose Arnold ranitidine 150 mg capsule 0 2-07 00:00: 00 Yes 1mg Jose Arnold metoprolol tartrate 50 mg tablet 2017-05 205 00:00: 00 Yes 1mg Jose Arnold metoprolol tartrate 50 mg tablet 01-13 00:00: 00 Yes 1mg Jose Arnold hydrochloro thiazide 12.5 mg tablet 12-10 00:00: 00 Yes 1mg Jose Arnold metoprolol tartrate 50 mg tablet 12-10 00:00: 00 Yes 1mg Jose Arnold hydrochloro thiazide 12.5 mg tablet 10-26 00:00: 00 Yes 1mg Jose Arnold metoprolol tartrate 50 mg tablet 10-26 00:00: 00 Yes 1mg Jose Arnold cyclobenzap rine 5 mg tablet 10-26 00:00: 00 Yes 1mg Jose Arnold metoprolol tartrate 50 mg tablet 10-07 00:00: 00 Yes 1mg Jose Arnold metoprolol tartrate 50 mg tablet 08-10 00:00: 00 Yes 1mg Jose Arnold ranitidine 150 mg capsule 08-10 00:00: 00 Yes 1mg Jose Arnold metoprolol tartrate 50 mg tablet 220 00:00: 00 Yes 1mg Jose Arnold ranitidine 150 mg capsule 220 00:00: 00 Yes 1mg Jose Arnold metoprolol tartrate 50 mg tablet 05-20 00:00: 00 Yes 1mg Jose Arnold ranitidine 150 mg capsule 05-20 00:00: 00 Yes 1mg Jose Arnold metoprolol tartrate 25 mg tablet 05-13 00:00: 00 Yes 1mg Jose Arnold metoprolol [...] tablet 10-14 00:00: 00 Yes 51mg Jose Arnold gabapentin 300 mg capsule 10-14 00:00: 00 [...] tablet 2015-05 00:00: 00 Yes 1mg Jose Arnlod ibuprofen 800 mg tablet 2015-05 00:00: 00 [...] 1mg Jose Arnold Motrin 800 mg tablet 09-06 00:00: 00 Yes 1mg Jose Arnold metoprolol tartrate 25 mg tablet 08-18 00:00: 00 Yes 1mg Jose Arnold naproxen 500 mg tablet 08-18 00:00: 00 Yes 1mg Jose Arnold Flexeril 5 mg tablet 08-18 00:00: 00 Yes 1mg Jose Arnold Immunizations Ordered Immunization Name Filled Immunization Name Date Status Comments Source SARS-COV-2 COVID-19 PFIZER VACCINE 2020-12-13 00:00:00 Completed [facility] SARS-COV-2 COVID-19 PFIZER VACCINE 2020-12-13 00:00:00 Completed [facility] SARS-COV-2 COVID-19 PFIZER VACCINE 2020-12-13 00:00:00 Completed [facility] SARS-COV-2 COVID-19 PFIZER VACCINE 2020-12-13 00:00:00 Completed [facility] SARS-COV-2 COVID-19 PFIZER VACCINE 2020-12-13 00:00:00 Completed [facility] SARS-COV-2 COVID-19 PFIZER VACCINE 2020-12-13 00:00:00 Completed [facility] SARS-COV-2 COVID-19 PFIZER VACCINE 2020-11-22 00:00:00 Completed [facility] SARS-COV-2 COVID-19 PFIZER VACCINE 2020-11-22 00:00:00 Completed [facility] SARS-COV-2 COVID-19 PFIZER VACCINE 2020-11-22 00:00:00 Completed [facility] SARS-COV-2 COVID-19 PFIZER VACCINE 2020-11-22 00:00:00 Completed [facility] SARS-COV-2 COVID-19 PFIZER VACCINE 2020-11-22 00:00:00 Completed [facility] SARS-COV-2 COVID-19 PFIZER VACCINE 2020-11-22 00:00:00 Completed [facility] Tetanus/Diptheria 2012-04-10 00:00:00 Completed [facility] Tetanus/Diptheria 2012-04-10 00:00:00 Completed [facility] Tetanus/Diptheria 2012-04-10 00:00:00 Completed [facility] Tetanus/Diptheria 2012-04-10 00:00:00 Completed [facility] Tetanus/Diptheria 2012-04-10 00:00:00 Completed [facility] Tetanus/Diptheria 2012-04-10 00:00:00 Completed [facility] Tetanus/Diptheria 2012-04-10 00:00:00 Completed [facility] Vital Signs Vital Name Observation Time Observation Value Comments S ource Body temperature 2021-09-25 07:54:00 37 Josette [facility] Systolic blood pressure 2021-09-25 07:46:00 119 mm[Hg] Mehama o [facility] Diastolic blood pressure 2021-09-25 07:46:00 81 mm[Hg] Mehama o [facility] Heart rate 2021-09-25 07:46:00 79 /min [facility] Respiratory rate 2021-09-25 07:46:00 19 /min [facility] Oxygen saturation in Arterial blood by Pulse oximetry 2021-09-25 06:15:00 98 /min Mehama o [facility] Body height 2021-09-25 03:29:00 154.9 cm [facility] Body weight 2021-09-25 03:29:00 127.007 kg [facility] BMI 2021-09-25 03:29:00 52.91 kg/m2 [facility] Systolic blood pressure 2021-06-10 21:13:00 146 mm[Hg] Mehama o [facility] Diastolic blood pressure 2021-06-10 21:13:00 83 mm[Hg] [facility] Heart rate 2021-06-10 21:05:00 71 /min [facility] Body height 2021-06-10 21:05:00 154.9 cm [facility] Body weight 2021-06-10 21:05:00 128.595 kg [facility] BMI 2021-06-10 21:05:00 53.57 kg/m2 [facility] Oxygen saturation in Arterial blood by Pulse oximetry 2021-06-10 21:05:00 94 /min Mehama o [facility] BP Systolic 2024-06-27 15:03:00 119 mm[Hg] Step hen F Clayton BP Diastolic 2024-06-27 15:03:00 68 mm[Hg] Francisco phen F Clayton Weight Measured 2024-06-27 15:03:00 311.00 pounds Jose F Clayton Height Measured 2024-06-27 15:03:00 63.00 inches Jose F Clayton Body Temperature 2024-06-27 15:03:00 98.60 degrees Jose F Clayton Heart Rate 2024-06-27 15:03:00 71.00 /min Nicky en F Clayton Respiratory Rate 2024-06-27 15:03:00 18.00 /min Jose F Clayton BP Systolic 2024-04-26 14:59:00 143 mm[Hg] Step hen F Clayton BP Diastolic 2024-04-26 14:59:00 91 mm[Hg] Francisco phen F Clayton Weight Measured 2024-04-26 14:59:00 302.40 pounds Jose F Clayton Height Measured 2024-04-26 14:59:00 63.00 inches Jose F Clayton Body Temperature 2024-04-26 14:59:00 97.40 degrees Jose F Clayton Heart Rate 2024-04-26 14:59:00 68.00 /min Nicky en F Clayton Respiratory Rate 2024-04-26 14:59:00 18.00 /min Jose F Clayton BP Systolic 2024-04-08 14:30:00 143 mm[Hg] Step hen F Clayton BP Diastolic 2024-04-08 14:30:00 87 mm[Hg] Francisco phen F Clayton Weight Measured 2024-04-08 14:30:00 302.00 pounds Jose F Clayton Height Measured 2024-04-08 14:30:00 63.00 inches Jose F Clayton Body Temperature 2024-04-08 14:30:00 98.20 degrees Jose F Clayton Heart Rate 2024-04-08 14:30:00 69.00 /min Nicky en F Clayton Respiratory Rate 2024-04-08 14:30:00 18.00 /min Jose F Clayton BP Systolic 2024-03-09 14:52:00 Step hen F Clayton BP Diastolic 2024-03-09 14:52:00 Francisco phen F Clayton Weight Measured 2024-03-09 14:52:00 Jose F Clayton Height Measured 2024-03-09 14:52:00 Jose F Clayton Body Temperature 2024-03-09 14:52:00 Jose F Clayton Heart Rate 2024-03-09 14:52:00 Nicky en F Clayton Respiratory Rate 2024-03-09 14:52:00 Jose F Clayton BP Systolic 2024-02-08 15:42:00 152 mm[Hg] Step hen F Clayton BP Diastolic 2024-02-08 15:42:00 88 mm[Hg] Francisco phen F Clayton Weight Measured 2024-02-08 15:42:00 303.20 pounds Jose F Clayton Height Measured 2024-02-08 15:42:00 63.00 inches Jose F Clayton Body Temperature 2024-02-08 15:42:00 98.20 degrees Jose F Clayton Heart Rate 2024-02-08 15:42:00 68.00 /min Nicky en F Clayton Respiratory Rate 2024-02-08 15:42:00 16.00 /min Jose F Clayton BP Systolic 2024-01-05 15:26:00 139 mm[Hg] Step hen F Clayton BP Diastolic 2024-01-05 15:26:00 78 mm[Hg] Francisco phen F Clayton Weight Measured 2024-01-05 15:26:00 Jose F Clayton Height Measured 2024-01-05 15:26:00 Jose F Clayton Body Temperature 2024-01-05 15:26:00 Jose F Clayton Heart Rate 2024-01-05 15:26:00 Nicky en F Clayton Respiratory Rate 2024-01-05 15:26:00 Jose F Clayton BP Systolic 2023-09-15 16:35:00 126 mm[Hg] Step hen F Clayton BP Diastolic 2023-09-15 16:35:00 80 mm[Hg] Francisco phen F Clayton Weight Measured 2023-09-15 16:35:00 297.40 pounds Jose F Clayton Height Measured 2023-09-15 16:35:00 63.00 inches Jose F Clayton Body Temperature 2023-09-15 16:35:00 98.10 degrees Jose F Clayton Heart Rate 2023-09-15 16:35:00 71.00 /min Nicky en F Clayton Respiratory Rate 2023-09-15 16:35:00 18.00 /min Jose [...] F Clayton Respiratory Rate 2022-09-20 13:49:00 Jose Arnold BP Systolic 2022-08-07 17:02:00 136 mm[Hg] Abran Arnold BP Diastolic 2022-08-07 17:02:00 63 mm[Hg] Francisco Arnold Weight Measured 2022-08-07 17:02:00 286.20 pounds Jose Arnold Height Measured 2022-08-07 17:02:00 63.00 inches Jose Arnold Body Temperature 2022-08-07 17:02:00 97.80 degrees Jose Arnold Heart Rate 2022-08-07 17:02:00 71.00 /min Nicky en Steve Arnold Respiratory Rate 2022-08-07 17:02:00 18.00 /min Jose Arnold Procedures Procedure Date / Time Performed Performing Clinicia n Source REFERRAL- REQUEST/RESPONSE 2022-12-13 05:01:00 Doctor Unassigned, Cameron [facility] POCT GLUCOSE (AUTOMATED) 2021-09-25 08:06:00 Michael Mueller [facility] CT ABDOMEN PELVIS W CONTRAST 2021-09-25 06:00:00 Michael Mueller [facility] URINALYSIS 2021-09-25 05:32:00 Michael Mueller [facility] LIPASE 2021-09-25 04:22:00 Michael Mueller [facility] TROPONIN I 2021-09-25 04:22:00 Michael Mueller [facility] COMP. METABOLIC PANEL ([id number]) 2021-09-25 04:22:00 Michael Mueller [facility] CBC WITH DIFF 2021-09-25 04:22:00 Michael Mueller [facility] NOTICE OF PRIVACY PRACTICES 2021-09-25 02:57:58 Doctor Unassigned, Cameron [facility] CONSENT/REFUSAL FOR DIAGNOSIS AND TREATMENT 2021-09-25 02:57:17 Doctor Unassigned, Cameron [facility] BI SCREENING MAMMOGRAM BILATERAL 2012-05-13 20:36:00 Randolph Guevara [facility] Encounters Start Date/Time End Date/Time Encounter Type Admission Type Attending Clinicians Care Facility Care Department Encounter ID Source 2024-06-27 15:01:47 2024-06-27 15:01:47 Outpatient [facility] [id number] Jose Arnold 2024-06-27 00:00:00 2024-06-27 00:00:00 Outpatient Visit SFA [id number] Jose Arnold 2012-05-13 00:00:00 2024-06-25 04:58:39 Orders Only Randolph Guevara [facility] ASSISTANT CHIEF OF POLICE [facility] MATERNAL & CHILD HEALTH [facility] [id number] [id number] [id number] [id number] [facility] 2024-04-26 14:54:16 2024-04-26 14:54:16 Outpatient [facility] [id number] Jose Arnold 2024-04-26 00:00:00 2024-04-26 00:00:00 Outpatient Visit SFA [id number] Jose Arnold 2024-04-08 14:22:00 2024-04-08 14:22:00 Outpatient [facility] [id number] Jose Arnold 2024-04-08 00:00:00 2024-04-08 00:00:00 Outpatient Visit SFA [id number] Jose Arnold 2024-03-09 14:52:30 2024-03-09 14:52:30 Outpatient [facility] 1030 Jose Arnold 2024-03-09 00:00:00 2024-03-09 00:00:00 Outpatient Visit SFA [id number] Jose Arnold 2024-03-01 00:00:00 2024-03-01 00:00:00 Outpatient R RADIOLOGY [facility] [id number] [facility] 2024-02-08 15:32:16 2024-02-08 15:32:16 Outpatient SFA [facility] 09 Jose Arnold 2024-02-08 00:00:00 2024-02-08 00:00:00 Outpatient Visit SFA [id number] Jose Arnold 2024-01-29 15:51:16 2024-01-29 15:51:16 Outpatient SFA [facility] 919 Jose Arnold 2024-01-05 00:00:00 2024-01-05 00:00:00 Outpatient Visit SFA [id number] Jose Arnold 2023-12-24 14:30:41 2023-12-24 14:30:41 Outpatient [facility] [id number] Jose Arnold 2023-12-24 00:00:00 2023-12-24 00:00:00 Outpatient Visit SFA [id number] Jose Arnold 2023-09-28 00:00:00 2023-09-28 00:00:00 Outpatient CARLOS ALBERTO DILLARD [id number] Krupa Lemus 2023-09-15 16:23:33 2023-09-15 16:23:33 Outpatient SFA S[facility] [id number] Jose Arnold 2023-09-15 00:00:00 2023-09-15 00:00:00 Outpatient Visit SFA [id number] Jose Arnold 2023-07-15 15:30:00 2023-07-15 15:30:00 Outpatient BHUMIKA ALLAN STRAHIL [facility] [id number] [facility] 2023-06-13 11:56:28 2023-06-13 11:56:28 Outpatient SFA SFA [id number] Jose Wilson Clayton 2023-04-22 17:01:07 2023-04-22 17:01:07 Outpatient SFA [facility] [id number] Jose Wilson Clayton 2023-03-19 16:21:05 2023-03-19 16:21:05 Outpatient SFA [facility] [id number] Jose Wilson Clayton 2022-12-29 00:00:00 2022-12-29 00:00:00 Letter (Out) Janneth Yang [facility] [id number] 350.1.13.10 4.2.7.2.686 [id number] [facility] 2022-12-26 16:18:29 2022-12-26 16:18:29 Outpatient [facility] 0818 Jose Wilson [place] 2022-12-13 00:00:00 2022-12-13 00:00:00 Orders Only Doctor Unassigned, Cameron [facility] [id number] 350.1.13.10 4.2.7.2.686 [id number] [facility] 2022-12-12 16:24:25 2022-12-12 16:24:25 Outpatient SFA S[facility] [id number] Jose Wilson [place] 2022-12-11 14:15:09 2022-12-11 14:15:09 Outpatient SFA SFA [id number] Jose Wilson [place] 2022-11-08 14:10:03 2022-11-08 14:10:03 Outpatient SFA SFA [id number] Jose Wilson Clayton 2022-09-20 13:41:38 2022-09-20 13:41:38 Outpatient SFA SFA [id number] Jose Wilson Clayton 2022-08-07 16:55:08 2022-08-07 16:55:08 Outpatient SFA SFA [id number] Jose Wilson Clayton 2022-03-03 15:47:22 2022-03-03 15:47:22 Outpatient SFA SFA [id number] Jose Wilson Clayton 2021-11-07 08:30:00 2021-11-07 08:30:00 Outpatient R SOUMYA HA [facility] [id number] [facility] 2021-09-24 22:32:00 2021-09-25 03:49:00 Emergency X MICHAEL MUELLER [facility] ERT [id number] [facility] 2021-09-24 22:32:00 2021-09-25 03:49:00 Emergency Michael Mueller R [facility] 1..840.114 350.1.13.10 4.2.7.2.686 [id number] [facility] 2021-08-06 00:00:00 2021-08-06 00:00:00 [facility] 1..840.114 350.1.13.10 4.2.7.2.686 [id number] [facility] 2021-07-09 13:00:00 2021-07-09 13:00:00 Outpatient R [facility] [id number] [facility] 2021-07-01 10:30:00 2021-07-01 10:30:00 Outpatient R CHERYL ESPINOZA [facility] [id number] [facility] 2021-06-30 00:00:00 2021-06-30 00:00:00 Telephone Cheryl Espinoza [facility] ASSISTANT CHIEF OF POLICE [facility] MATERNAL & CHILD HEALTH [facility] 1..840.114 350.1.13.10 4.2.7.2.686 [id number] [facility] 2021-06-10 15:20:00 2021-06-10 15:31:06 Outpatient R SALAS GABRIELABHILASH [facility] [id number] [facility] 2021-06-10 15:20:00 2021-06-10 15:31:06 [facility] 1.84.114 350.1.13.10 4.2.7.2.686 [id number] [facility] 2021-06-10 00:00:00 2021-06-10 00:00:00 Orders Only Doctor Unassigned, Cameron [facility] 1..114 350.1.13.10 4.2.7.2.686 [id number] [facility] 2021-04-26 10:18:00 2021-04-27 16:12:00 [id number] 2021-04-26 10:18:00 2021-04-27 16:12:00 [facility] [id number] [facility] 2021-04-26 10:18:00 2021-04-27 16:12:00 Emergency Mitra Barajas Jelani [facility] 1.84.114 350.1.13.10 4.2.7.2.686 [id number] [facility] 2020-12-13 15:00:00 2020-12-13 15:09:50 Outpatient REBEKA MAHAN [facility] [id number] [facility] 2020-11-22 15:20:00 2020-11-22 15:09:34 Outpatient REBEKA MAHAN [facility] [id number] [facility] 2019-01-05 22:28:10 2019-01-05 23:35:00 Emergency Anni Mcfadden [facility] 1.84.114 350.1.13.10 4.2.7.2.686 [id number] [facility] 2018-12-14 06:51:33 2018-12-14 23:59:00 Hospital Encounter Soumya Ha [facility] 1.84.114 350.1.13.10 4.2.7.2.686 [id number] [facility] Results Test Description Test Time Test Comments Results Result Co mments Source LASHA, THIRD [id number] 03:00:25* Test Item Value Reference Range Interpretation Comme nts TSH, THIRD GENERATION (test code = 2821) 3.910 UIU/ML 0.400-4.100 UNLESS OTHERWISE INDICATED, ALL TESTING PERFORMED AT [facility] [address] [place] [address] [employer] APPRENTICE: FADI NEWMAN M.D. CLIA NUMBER [id number] [place] [place]. [id number] NOTE: [ADDED]2024-02-13 00:00:00* Test Item Value Reference Range Interpretation Comme nts NOTE: (test code = 998) (NOTE) Jose August THIRD GENERATION [ADDED]2024-02-13 00:00:00* Test Item Value Reference Range Interpretation Comme nts TSH, THIRD GENERATION (test code = 2821) 3.910 UIU/ML Jose Wilson AustinNOTE: [ADDED]2024-02-13 00:00:00* Test Item Value Reference Range Interpretation Comme nts NOTE: (test code = 998) (NOTE) Jose August THIRD GENERATION [ADDED]2024-02-13 00:00:00* Test Item Value Reference Range Interpretation Comme nts TSH, THIRD GENERATION (test code = 2821) 3.910 UIU/ML Jose Wilson AustinNOTE: [ADDED]2024-02-13 00:00:00* Test Item Value Reference Range Interpretation Comme nts NOTE: (test code = 998) (NOTE) Jose August THIRD GENERATION [ADDED]2024-02-13 00:00:00* Test Item Value Reference Range Interpretation Comme nts TSH, THIRD GENERATION (test code = 2821) 3.910 UIU/ML Jose Wilson AustinNOTE: [ADDED]2024-02-13 00:00:00* Test Item Value Reference Range Interpretation Comme nts NOTE: (test code = 998) (NOTE) Jose August THIRD GENERATION [ADDED]2024-02-13 00:00:00* Test Item Value Reference Range Interpretation Comme nts TSH, THIRD GENERATION (test code = 2821) 3.910 UIU/ML Jose ArnoldNOTE: [ADDED]2024-02-13 00:00:00* Test Item Value Reference Range Interpretation Comme nts NOTE: (test code = 998) (NOTE) Jose CramerH, THIRD GENERATION [ADDED]2024-02-13 00:00:00* Test Item Value Reference Range Interpretation Comme nts TSH, THIRD GENERATION (test code = 2821) 3.910 UIU/ML Jose ArnoldANA REFLEX AUTOIMMUNE AB [id number] 03:33:24* Test Item Value Reference Range Interpretation Comme nts ANTI-NUCLEAR ANTIBODIES (test code = 3506) NEGATIVE NEGATIVE Methodology is I ndirect Immunofluorescent Assay (IFA) with a titering system using [id number] cells (Hep2 cells transfected with SS-A/Ro). MANSOOR PATTERN (REPORTED TITER) (test code = 26326) SEE BELOW HOMOGENEOUS (test code = 30120) NEGATIVE TITER NEGATIVE SPECKLED (test code = 704054) NEGATIVE TITER NEGATIVE DENSE FINE SPECKLED (test code = 07432) NEGATIVE TITER NEGATIVE CENTROMERE (test code = 766907) NEGATIVE TITER NEGATIVE COARSE SPECKLED (test code = 029096) NEGATIVE TITER NEGATIVE DISCRETE NUCLEAR DOTS (test code = 202352) NEGATIVE TITER NEGATIVE NUCLEOLAR (test code = 041188) NEGATIVE TITER NEGATIVE NUCLEAR MEMBRANE (test code = 816611) NEGATIVE TITER NEGATIVE CYTO. RETICULAR (DAYNA) (test code = 195998) NEGATIVE NEGATIVE COMMENTS (test code = 691397) NONE METHOD (test code = 69144) (NOTE) TESTING PERFORME D BY [employer] IFA PLATFORM.THE METHOD INCLUDES A SCREEN THRESHOLD OF 1:80, DIGITIZED AND COMPUTER ALGORITHM-ASSISTED INTERPRETATION OF TITERS AND DIGITAL PATTERNS, AND HEp-2 CELL LINE SUBSTRATE. ADDITIONAL UNUSUAL PATTERNS WILL BE GIVEN COMMENTS.FOR MORE INFORMATION, SEE [email or web address] ting MANSOOR REFLEX AUTOIMMUNE AB [id number] 00:00:00* Test Item Value Reference Range Interpretation Comme nts ANTI-NUCLEAR ANTIBODIES (nicolle t code = 3506) NEGATIVE MANSOOR PATTERN (REPORTED TITER) (test code = 00539) SEE BELOW HOMOGENEOUS (test code = 39406) NEGATIVE TITER SPECKLED (test code = 483932) NEGATIVE TITER DENSE FINE SPECKLED (test co de = 84337) NEGATIVE TITER CENTROMERE (test code = 742435) NEGATIVE TITER COARSE SPECKLED (test code = 736466) NEGATIVE TITER DISCRETE NUCLEAR DOTS (test code = 023551) NEGATIVE TITER NUCLEOLAR (test code = 998326) NEGATIVE TITER NUCLEAR MEMBRANE (test code = 731622) NEGATIVE TITER CYTO. RETICULAR (DAYNA) (test code = 914512) NEGATIVE COMMENTS (test code = 890607) NONE METHOD (test code = 56825) (NOTE) Jose Louise REFLEX AUTOIMMUNE AB [id number] 00:00:00* Test Item Value Reference Range Interpretation Comme nts ANTI-NUCLEAR ANTIBODIES (nicolle t code = 3506) NEGATIVE MANSOOR PATTERN (REPORTED TITER) (test code = 38827) SEE BELOW HOMOGENEOUS (test code = 64216) NEGATIVE TITER SPECKLED (test code = 627218) NEGATIVE TITER DENSE FINE SPECKLED (test co de = 85956) NEGATIVE TITER CENTROMERE (test code = 381929) NEGATIVE TITER COARSE SPECKLED (test code = 674317) NEGATIVE TITER DISCRETE NUCLEAR DOTS (test code = 129872) NEGATIVE TITER NUCLEOLAR (test code = 760019) NEGATIVE TITER NUCLEAR MEMBRANE (test code = 728947) NEGATIVE TITER CYTO. RETICULAR (DAYNA) (test code = 671813) NEGATIVE COMMENTS (test code = 331400) NONE METHOD (test code = 39894) (NOTE) Jose Louise REFLEX AUTOIMMUNE AB [id number] 00:00:00* Test Item Value Reference Range Interpretation Comme nts ANTI-NUCLEAR ANTIBODIES (nicolle t code = 3506) NEGATIVE MANSOOR PATTERN (REPORTED TITER) (test code = 30006) SEE BELOW HOMOGENEOUS (test code = 29067) NEGATIVE TITER SPECKLED (test code = 020329) NEGATIVE TITER DENSE FINE SPECKLED (test co de = 11962) NEGATIVE TITER CENTROMERE (test code = 719093) NEGATIVE TITER COARSE SPECKLED (test code = 169840) NEGATIVE TITER DISCRETE NUCLEAR DOTS (test code = 584869) NEGATIVE TITER NUCLEOLAR (test code = 556341) NEGATIVE TITER NUCLEAR MEMBRANE (test code = 631759) NEGATIVE TITER CYTO. RETICULAR (DAYNA) (test code = 900036) NEGATIVE COMMENTS (test code = 762462) NONE METHOD (test code = 47720) (NOTE) Jose Louise REFLEX AUTOIMMUNE AB [id number] 00:00:00* Test Item Value Reference Range Interpretation Comme nts ANTI-NUCLEAR ANTIBODIES (nicolle t code = 3506) NEGATIVE MANSOOR PATTERN (REPORTED TITER) (test code = 75032) SEE BELOW HOMOGENEOUS (test code = 60671) NEGATIVE TITER SPECKLED (test code = 791955) NEGATIVE TITER DENSE FINE SPECKLED (test co de = 41928) NEGATIVE TITER CENTROMERE (test code = 676442) NEGATIVE TITER COARSE SPECKLED (test code = 046618) NEGATIVE TITER DISCRETE NUCLEAR DOTS (test code = 837892) NEGATIVE TITER NUCLEOLAR (test code = 616615) NEGATIVE TITER NUCLEAR MEMBRANE (test code = 205500) NEGATIVE TITER CYTO. RETICULAR (DAYNA) (test code = 641412) NEGATIVE COMMENTS (test code = 403858) NONE METHOD (test code = 56905) (NOTE) Jose Louise REFLEX AUTOIMMUNE AB [id number] 00:00:00* Test Item Value Reference Range Interpretation Comme nts ANTI-NUCLEAR ANTIBODIES (nicolle t code = 3506) NEGATIVE MANSOOR PATTERN (REPORTED TITER) (test code = 62138) SEE BELOW HOMOGENEOUS (test code = 52718) NEGATIVE TITER SPECKLED (test code = 661218) NEGATIVE TITER DENSE FINE SPECKLED (test co de = 37520) NEGATIVE TITER CENTROMERE (test code = 093260) NEGATIVE TITER COARSE SPECKLED (test code = 274306) NEGATIVE TITER DISCRETE NUCLEAR DOTS (test code = 709002) NEGATIVE TITER NUCLEOLAR (test code = 550221) NEGATIVE TITER NUCLEAR MEMBRANE (test code = 980531) NEGATIVE TITER CYTO. RETICULAR (DAYNA) (test code = 360120) NEGATIVE COMMENTS (test code = 572331) NONE METHOD (test code = 55360) (NOTE) Jose ArnoldHEMOGLOBIN [id number] 22:05:10* Test Item Value Reference Range Interpretation Comme nts HEMOGLOBIN A1c (test code = 04550) 5.7 % 4.2-5.6 H [employer] GUIDELINES FOR HGB A1C: PREDIABETES/INCREASED RISK . . . . . . . 5.7-6.4% DIAGNOSIS OF DIABETES . . . . . . . . . >=6.5% WITH CONFIRMATION OR APPROPRIATE SYMPTOMS NOTE: ASSAY MAY BE AFFECTED BY HEMOGLOBINOPATHIES (SICKLE CELL ANEMIA, S-C DISEASE, OTHERS) OR ARTIFICIALLY LOWERED BY DECREASED RED CELL SURVIVAL (HEMOLYTIC ANEMIAS, BLOOD LOSS, ETC.). CONSIDER ALTERNATE TESTING OR LABORATORY CONSULTATION. SEDIMENTATION [id number] 06:57:45* Test Item Value Reference Range Interpretation Comme nts SEDIMENTATION RATE (test cod e = 1017) 10 MM/HOUR 0-20 C-REACTIVE [id number] 05:36:01* Test Item Value Reference Range Interpretation Comme nts C-REACTIVE PROTEIN (test cod e = 3513) 0.5 MG/DL <0.5 H COMPREHENSIVE METABOLIC [id number] 05:31:31* Test Item Value Reference Range Interpretation Comme nts GLUCOSE (test code = 7) 110 MG/DL 70-99 H BUN (test code = 2207) 10 MG/DL 6-20 CREATININE (test code = 2214) 0.72 MG/DL 0.60-1.30 eGFR (2020 CKD-EPI) (test co de = 76510) 97 ML/MIN/1.73 >60 CALC BUN/CREAT (test code = 2235) 14 RATIO 6-28 SODIUM (test code = 2231) 143 MEQ/L 133-146 POTASSIUM (test code = 2228) 4.0 MEQ/L 3.5-5.4 CHLORIDE (test code = 2215) 104 MEQ/L 95-107 CARBON DIOXIDE (test code = 2206) 27 MEQ/L 19-31 CALCIUM (test code = 2209) 9.2 MG/DL 8.5-10.5 PROTEIN, TOTAL (test code = 2229) 7.6 G/DL 6.1-8.3 ALBUMIN (test code = 2201) 4.5 G/DL 3.5-5.2 CALC GLOBULIN (test code = 2240) 3.1 G/DL 1.9-3.7 CALC A/G RATIO (test code = 2234) 1.5 RATIO 1.0-2.6 BILIRUBIN, TOTAL (test code = 2207) 0.5 MG/DL <=1.2 ALKALINE PHOSPHATASE (test code = 2204) 99 U/L 40-136 AST (test code = 2218) 23 U/L 9-40 ALT (test code = 2219) 39 U/L 5-40 LIPID [id number] 05:31:31* Test Item Value Reference Range Interpretation Comme nts CHOLESTEROL (test code = 2210) 246 MG/DL <200 H TRIGLYCERIDES (test code = 2232) 186 MG/DL <150 H HDL CHOLESTEROL (test code = 2220) 53 MG/DL >39 CALC LDL CHOL (test code = 2237) 159 MG/DL <100 H NOTE: CALCULATED LDL IS BASED ON ERICKA-SINGH METHOD WHICHINCLUDES ADJUSTABLE TRIGLYCERIDE:VLDL CHOLESTEROL RATIO.THIS FACTOR VARIES BY MEASURED TRIGLYCERIDE AND NON-HDLCHOLESTEROL CONCENTRATIONS WITH INCREASED CALCULATED LDL SEENIN HIGHER TRIGLYCERIDE OR LOWER NON-HDL SPECIMENS. FOR MOREINFORMATION, SEE CLIENT ANNOUNCEMENT AT [email or web address] RISK RATIO LDL/HDL (test code = 2238) 3.00 RATIO <3.22 HIV 1/2 4TH GEN, RFLX [id number] 04:22:12* Test Item Value Reference Range Interpretation Comme nts HIV 1/2 4TH GEN, RFLX CONF (test code = 3514) NON-REACTIVE NON-REACTIVE UNLESS OTHERWISE INDICATED, ALL TESTING PERFORMED AT [facility] [address] [place] [address] [employer] APPRENTICE: FADI NEWMAN M.D. CLIA NUMBER [id number] [place] [id number] HEPATITIS PANEL, [id number] 04:22:12* Test Item Value Reference Range Interpretation Comme nts HEPATITIS A IgM (test code = 71629) NON-REACTIVE NON-REACTIVE HEPATITIS B CORE IgM (test code = 4644) NON-REACTIVE NON-REACTIVE HEPATITIS B SURF AG (test code = 2739) NON-REACTIVE NON-REACTIVE HEPATITIS C ANTIBODY (test code = 4675) NON-REACTIVE NON-REACTIVE INTERPRETATION HEPATITIS A: (test code = 2552) (NOTE) Hepatitis A serology shows no evidence of acute hepatitis A. INTERPRETATION HEPATITIS B: (test code = 22406) (NOTE) Hepatitis B serology shows no evidence of acute hepatitis B andno indication of exposure to hepatitis B virus in the previous imani eight months. INTERPRETATION HEPATITIS C: (test code = 69969) (NOTE) Hepatitis C serology shows no evidence of exposure to hepatitisC virus at this time. It can take up to 12 months after exposure tothe hepatitis C virus for antibodies to become detectable in the blood in certain patients. CBC W/AUTO DIFF WITH [id number] 03:36:04* Test Item Value Reference Range Interpretation Comme nts WBC (test code = 1001) 7.5 K/UL 3.5-11.0 RBC (test code = 1002) 5.19 M/UL 3.80-5.40 HEMOGLOBIN (test code = 1003) 16.1 G/DL 11.5-15.5 H HEMATOCRIT (test code = 1004) 47.4 % 34.0-45.0 H MCV (test code = 1005) 91.3 fL 80.0-99.0 MCH (test code = 1006) 31.0 PG 25.0-33.0 MCHC (test code = 1007) 34.0 G/DL 31.0-36.0 RDW (test code = 1038) 12.9 % 11.5-15.0 NEUTROPHILS (test code = 1008) 56.9 % LYMPHOCYTES (test code = 1010) 32.6 % MONOCYTES (test code = 1011) 6.8 % EOSINOPHILS (test code = 1012) 2.7 % BASOPHILS (test code = 1013) 0.7 % IMMATURE GRANULOCYTES (test code = 1036) 0.3 % NUCLEATED RBCS (test code = 1065) 0.0 /100 WBC'S See_Comment [Automated [employer] ge] The system which generated this result transmitted reference range: 0.0. The reference range was not used to interpret this result as normal/abnormal. PLATELET COUNT (test code = 1015) 250 K/UL 130-400 ABSOLUTE NEUTROPHILS (test code = 1066) 4.29 K/UL 1.50-7.50 ABSOLUTE LYMPHOCYTES (test code = 1067) 2.45 K/UL 1.00-4.00 ABSOLUTE MONOCYTES (test code = 1068) 0.51 K/UL 0.20-1.00 ABSOLUTE EOSINOPHILS (test code = 1040) 0.20 K/UL 0.00-0.50 ABSOLUTE BASOPHILS (test code = 1069) 0.05 K/UL 0.00-0.20 ABS IMMATURE GRANULOCYTES (test code = 1020) 0.02 K/UL 0.00-0.10 ABS NUCLEATED RBCS (test code = 01239) 0.00 K/UL 0.00-0.11 SEDIMENTATION [id number] 00:00:00* Test Item Value Reference Range Interpretation Comme nts SEDIMENTATION RATE (test cod e = 1017) 10 MM/HOUR Jose ArnoldC-REACTIVE [id number] 00:00:00* Test Item Value Reference Range Interpretation Comme nts C-REACTIVE PROTEIN (test cod e = 3513) 0.5 MG/DL Jose ArnoldACUTE HEPATITIS [id number] 00:00:00* Test Item Value Reference Range Interpretation Comme nts HEPATITIS A IgM (test code = 90116) NON-REACTIVE HEPATITIS B CORE IgM (test c ode = 4644) NON-REACTIVE HEPATITIS B SURF AG (test co de = 2739) NON-REACTIVE HEPATITIS C ANTIBODY (test c ode = 4675) NON-REACTIVE INTERPRETATION HEPATITIS A: (test code = 2552) (NOTE) INTERPRETATION HEPATITIS B: (test code = 37195) (NOTE) INTERPRETATION HEPATITIS C: (test code = 86599) (NOTE) Jose ArnoldCOMPREHENSIVE METABOLIC [id number] 00:00:00* Test Item Value Reference Range Interpretation Comme nts GLUCOSE (test code = 2217) 110 MG/DL BUN (test code = 2208) 10 MG/DL CREATININE (test code = 2214) 0.72 MG/DL eGFR (2020 CKD-EPI) (test co de = 75135) 97 ML/MIN/1.73 CALC BUN/CREAT (test code = 2235) 14 RATIO SODIUM (test code = 2231) 143 MEQ/L POTASSIUM (test code = 2228) 4.0 MEQ/L CHLORIDE (test code = 2215) 104 MEQ/L CARBON DIOXIDE (test code = 2206) 27 MEQ/L CALCIUM (test code = 2209) 9.2 MG/DL PROTEIN, TOTAL (test code = 2229) 7.6 G/DL ALBUMIN (test code = 2201) 4.5 G/DL CALC GLOBULIN (test code = 2240) 3.1 G/DL CALC A/G RATIO (test code = 2234) 1.5 RATIO BILIRUBIN, TOTAL (test code = 2207) 0.5 MG/DL ALKALINE PHOSPHATASE (test code = 2204) 99 U/L AST (test code = 2218) 23 U/L ALT (test code = 2219) 39 U/L Jose ArnoldHEMOGLOBIN [id number] 00:00:00* Test Item Value Reference Range Interpretation Comme nts HEMOGLOBIN A1c (test code = 25117) 5.7 % Jose ArnoldLIPID [id number] 00:00:00* Test Item Value Reference Range Interpretation Comme nts CHOLESTEROL (test code = 2210) 246 MG/DL TRIGLYCERIDES (test code = 2232) 186 MG/DL HDL CHOLESTEROL (test code = 2220) 53 MG/DL CALC LDL CHOL (test code = 2237) 159 MG/DL RISK RATIO LDL/HDL (test cod e = 2238) 3.00 RATIO Jose ArnoldCBC W/AUTO [id number] 00:00:00* Test Item Value Reference Range Interpretation Comme nts WBC (test code = 1001) 7.5 K/UL RBC (test code = 1002) 5.19 M/UL HEMOGLOBIN (test code = 1003) 16.1 G/DL HEMATOCRIT (test code = 1004) 47.4 % MCV (test code = 1005) 91.3 fL MCH (test code = 1006) 31.0 PG MCHC (test code = 1007) 34.0 G/DL RDW (test code = 1038) 12.9 % NEUTROPHILS (test code = 1008) 56.9 % LYMPHOCYTES (test code = 1010) 32.6 % MONOCYTES (test code = 1011) 6.8 % EOSINOPHILS (test code = 1012) 2.7 % BASOPHILS (test code = 1013) 0.7 % IMMATURE GRANULOCYTES (test code = 1036) 0.3 % NUCLEATED RBCS (test code = 1065) 0.0 /100WBC'S PLATELET COUNT (test code = 1015) 250 K/UL ABSOLUTE NEUTROPHILS (test c ode = 1066) 4.29 K/UL ABSOLUTE LYMPHOCYTES (test c ode = 1067) 2.45 K/UL ABSOLUTE MONOCYTES (test cod e = 1068) 0.51 K/UL ABSOLUTE EOSINOPHILS (test c ode = 1040) 0.20 K/UL ABSOLUTE BASOPHILS (test cod e = 1069) 0.05 K/UL ABS IMMATURE GRANULOCYTES (t est code = 1020) 0.02 K/UL ABS NUCLEATED RBCS (test cod e = 75550) 0.00 K/UL Jose ArnoldHIV 1/2 4TH GEN, RFLX [id number] 00:00:00* Test Item Value Reference Range Interpretation Comme nts HIV 1/2 4TH GEN, RFLX CONF ( test code = 3514) NON-REACTIVE Jose ArnoldSEDIMENTATION [id number] 00:00:00* Test Item Value Reference Range Interpretation Comme nts SEDIMENTATION RATE (test cod e = 1017) 10 MM/HOUR Jose ArnoldC-REACTIVE [id number] 00:00:00* Test Item Value Reference Range Interpretation Comme nts C-REACTIVE PROTEIN (test cod e = 3513) 0.5 MG/DL Jose ArnoldACUTE HEPATITIS [id number] 00:00:00* Test Item Value Reference Range Interpretation Comme nts HEPATITIS A IgM (test code = 66367) NON-REACTIVE HEPATITIS B CORE IgM (test c ode = 4644) NON-REACTIVE HEPATITIS B SURF AG (test co de = 2739) NON-REACTIVE HEPATITIS C ANTIBODY (test c ode = 4675) NON-REACTIVE INTERPRETATION HEPATITIS A: (test code = 2552) (NOTE) INTERPRETATION HEPATITIS B: (test code = 40565) (NOTE) INTERPRETATION HEPATITIS C: (test code = 87527) (NOTE) Jose ArnoldCOMPREHENSIVE METABOLIC [id number] 00:00:00* Test Item Value Reference Range Interpretation Comme nts GLUCOSE (test code = 2217) 110 MG/DL BUN (test code = 2208) 10 MG/DL CREATININE (test code = 2214) 0.72 MG/DL eGFR (2020 CKD-EPI) (test co de = 08243) 97 ML/MIN/1.73 CALC BUN/CREAT (test code = 2235) 14 RATIO SODIUM (test code = 2231) 143 MEQ/L POTASSIUM (test code = 2228) 4.0 MEQ/L CHLORIDE (test code = 2215) 104 MEQ/L CARBON DIOXIDE (test code = 2206) 27 MEQ/L CALCIUM (test code = 2209) 9.2 MG/DL PROTEIN, TOTAL (test code = 2229) 7.6 G/DL ALBUMIN (test code = 2201) 4.5 G/DL CALC GLOBULIN (test code = 2240) 3.1 G/DL CALC A/G RATIO (test code = 2234) 1.5 RATIO BILIRUBIN, TOTAL (test code = 2207) 0.5 MG/DL ALKALINE PHOSPHATASE (test code = 2204) 99 U/L AST (test code = 2218) 23 U/L ALT (test code = 2219) 39 U/L Jose ArnoldHEMOGLOBIN [id number] 00:00:00* Test Item Value Reference Range Interpretation Comme nts HEMOGLOBIN A1c (test code = 79986) 5.7 % Jose ArnoldLIPID [id number] 00:00:00* Test Item Value Reference Range Interpretation Comme nts CHOLESTEROL (test code = 2210) 246 MG/DL TRIGLYCERIDES (test code = 2232) 186 MG/DL HDL CHOLESTEROL (test code = 2220) 53 MG/DL CALC LDL CHOL (test code = 2237) 159 MG/DL RISK RATIO LDL/HDL (test cod e = 2238) 3.00 RATIO Jose ArnoldCBC W/AUTO [id number] 00:00:00* Test Item Value Reference Range Interpretation Comme nts WBC (test code = 1001) 7.5 K/UL RBC (test code = 1002) 5.19 M/UL HEMOGLOBIN (test code = 1003) 16.1 G/DL HEMATOCRIT (test code = 1004) 47.4 % MCV (test code = 1005) 91.3 fL MCH (test code = 1006) 31.0 PG MCHC (test code = 1007) 34.0 G/DL RDW (test code = 1038) 12.9 % NEUTROPHILS (test code = 1008) 56.9 % LYMPHOCYTES (test code = 1010) 32.6 % MONOCYTES (test code = 1011) 6.8 % EOSINOPHILS (test code = 1012) 2.7 % BASOPHILS (test code = 1013) 0.7 % IMMATURE GRANULOCYTES (test code = 1036) 0.3 % NUCLEATED RBCS (test code = 1065) 0.0 /100WBC'S PLATELET COUNT (test code = 1015) 250 K/UL ABSOLUTE NEUTROPHILS (test c ode = 1066) 4.29 K/UL ABSOLUTE LYMPHOCYTES (test c ode = 1067) 2.45 K/UL ABSOLUTE MONOCYTES (test cod e = 1068) 0.51 K/UL ABSOLUTE EOSINOPHILS (test c ode = 1040) 0.20 K/UL ABSOLUTE BASOPHILS (test cod e = 1069) 0.05 K/UL ABS IMMATURE GRANULOCYTES (t est code = 1020) 0.02 K/UL ABS NUCLEATED RBCS (test cod e = 42648) 0.00 K/UL Jose ArnoldHIV 1/2 4TH GEN, RFLX [id number] 00:00:00* Test Item Value Reference Range Interpretation Comme nts HIV 1/2 4TH GEN, RFLX CONF ( test code = 3514) NON-REACTIVE Jose ArnoldSEDIMENTATION [id number] 00:00:00* Test Item Value Reference Range Interpretation Comme nts SEDIMENTATION RATE (test cod e = 1017) 10 MM/HOUR Jose ArnoldC-REACTIVE [id number] 00:00:00* Test Item Value Reference Range Interpretation Comme nts C-REACTIVE PROTEIN (test cod e = 3513) 0.5 MG/DL Jose ArnoldACUTE HEPATITIS [id number] 00:00:00* Test Item Value Reference Range Interpretation Comme nts HEPATITIS A IgM (test code = 79288) NON-REACTIVE HEPATITIS B CORE IgM (test c ode = 4644) NON-REACTIVE HEPATITIS B SURF AG (test co de = 2739) NON-REACTIVE HEPATITIS C ANTIBODY (test c ode = 4675) NON-REACTIVE INTERPRETATION HEPATITIS A: (test code = 2552) (NOTE) INTERPRETATION HEPATITIS B: (test code = 67454) (NOTE) INTERPRETATION HEPATITIS C: (test code = 98798) (NOTE) Jose ArnoldCOMPREHENSIVE METABOLIC [id number] 00:00:00* Test Item Value Reference Range Interpretation Comme nts GLUCOSE (test code = 2217) 110 MG/DL BUN (test code = 2208) 10 MG/DL CREATININE (test code = 2214) 0.72 MG/DL eGFR (2020 CKD-EPI) (test co de = 10024) 97 ML/MIN/1.73 CALC BUN/CREAT (test code = 2235) 14 RATIO SODIUM (test code = 2231) 143 MEQ/L POTASSIUM (test code = 2228) 4.0 MEQ/L CHLORIDE (test code = 2215) 104 MEQ/L CARBON DIOXIDE (test code = 2206) 27 MEQ/L CALCIUM (test code = 2209) 9.2 MG/DL PROTEIN, TOTAL (test code = 2229) 7.6 G/DL ALBUMIN (test code = 2201) 4.5 G/DL CALC GLOBULIN (test code = 2240) 3.1 G/DL CALC A/G RATIO (test code = 2234) 1.5 RATIO BILIRUBIN, TOTAL (test code = 2207) 0.5 MG/DL ALKALINE PHOSPHATASE (test code = 2204) 99 U/L AST (test code = 2218) 23 U/L ALT (test code = 2219) 39 U/L Jose ArnoldHEMOGLOBIN [id number] 00:00:00* Test Item Value Reference Range Interpretation Comme nts HEMOGLOBIN A1c (test code = 56396) 5.7 % Jose ArnoldLIPID [id number] 00:00:00* Test Item Value Reference Range Interpretation Comme nts CHOLESTEROL (test code = 2210) 246 MG/DL TRIGLYCERIDES (test code = 2232) 186 MG/DL HDL CHOLESTEROL (test code = 2220) 53 MG/DL CALC LDL CHOL (test code = 2237) 159 MG/DL RISK RATIO LDL/HDL (test cod e = 2238) 3.00 RATIO Jose ArnoldCBC W/AUTO [id number] 00:00:00* Test Item Value Reference Range Interpretation Comme nts WBC (test code = 1001) 7.5 K/UL RBC (test code = 1002) 5.19 M/UL HEMOGLOBIN (test code = 1003) 16.1 G/DL HEMATOCRIT (test code = 1004) 47.4 % MCV (test code = 1005) 91.3 fL MCH (test code = 1006) 31.0 PG MCHC (test code = 1007) 34.0 G/DL RDW (test code = 1038) 12.9 % NEUTROPHILS (test code = 1008) 56.9 % LYMPHOCYTES (test code = 1010) 32.6 % MONOCYTES (test code = 1011) 6.8 % EOSINOPHILS (test code = 1012) 2.7 % BASOPHILS (test code = 1013) 0.7 % IMMATURE GRANULOCYTES (test code = 1036) 0.3 % NUCLEATED RBCS (test code = 1065) 0.0 /100WBC'S PLATELET COUNT (test code = 1015) 250 K/UL ABSOLUTE NEUTROPHILS (test c ode = 1066) 4.29 K/UL ABSOLUTE LYMPHOCYTES (test c ode = 1067) 2.45 K/UL ABSOLUTE MONOCYTES (test cod e = 1068) 0.51 K/UL ABSOLUTE EOSINOPHILS (test c ode = 1040) 0.20 K/UL ABSOLUTE BASOPHILS (test cod e = 1069) 0.05 K/UL ABS IMMATURE GRANULOCYTES (t est code = 1020) 0.02 K/UL ABS NUCLEATED RBCS (test cod e = 70767) 0.00 K/UL Jose ArnoldHIV 1/2 4TH GEN, RFLX [id number] 00:00:00* Test Item Value Reference Range Interpretation Comme nts HIV 1/2 4TH GEN, RFLX CONF ( test code = 3514) NON-REACTIVE Jose ArnoldSEDIMENTATION [id number] 00:00:00* Test Item Value Reference Range Interpretation Comme nts SEDIMENTATION RATE (test cod e = 1017) 10 MM/HOUR Jose ArnoldC-REACTIVE [id number] 00:00:00* Test Item Value Reference Range Interpretation Comme nts C-REACTIVE PROTEIN (test cod e = 3513) 0.5 MG/DL Jose ArnoldACUTE HEPATITIS [id number] 00:00:00* Test Item Value Reference Range Interpretation Comme nts HEPATITIS A IgM (test code = 36082) NON-REACTIVE HEPATITIS B CORE IgM (test c ode = 4644) NON-REACTIVE HEPATITIS B SURF AG (test co de = 2739) NON-REACTIVE HEPATITIS C ANTIBODY (test c ode = 4675) NON-REACTIVE INTERPRETATION HEPATITIS A: (test code = 2552) (NOTE) INTERPRETATION HEPATITIS B: (test code = 19042) (NOTE) INTERPRETATION HEPATITIS C: (test code = 87295) (NOTE) Jose ArnoldCOMPREHENSIVE METABOLIC [id number] 00:00:00* Test Item Value Reference Range Interpretation Comme nts GLUCOSE (test code = 2217) 110 MG/DL BUN (test code = 2208) 10 MG/DL CREATININE (test code = 2214) 0.72 MG/DL eGFR (2020 CKD-EPI) (test co de = 50695) 97 ML/MIN/1.73 CALC BUN/CREAT (test code = 2235) 14 RATIO SODIUM (test code = 2231) 143 MEQ/L POTASSIUM (test code = 2228) 4.0 MEQ/L CHLORIDE (test code = 2215) 104 MEQ/L CARBON DIOXIDE (test code = 2206) 27 MEQ/L CALCIUM (test code = 2209) 9.2 MG/DL PROTEIN, TOTAL (test code = 2229) 7.6 G/DL ALBUMIN (test code = 2201) 4.5 G/DL CALC GLOBULIN (test code = 2240) 3.1 G/DL CALC A/G RATIO (test code = 2234) 1.5 RATIO BILIRUBIN, TOTAL (test code = 2207) 0.5 MG/DL ALKALINE PHOSPHATASE (test code = 2204) 99 U/L AST (test code = 2218) 23 U/L ALT (test code = 2219) 39 U/L Jose ArnoldHEMOGLOBIN [id number] 00:00:00* Test Item Value Reference Range Interpretation Comme nts HEMOGLOBIN A1c (test code = 55523) 5.7 % Jose ArnoldLIPID [id number] 00:00:00* Test Item Value Reference Range Interpretation Comme nts CHOLESTEROL (test code = 2210) 246 MG/DL TRIGLYCERIDES (test code = 2232) 186 MG/DL HDL CHOLESTEROL (test code = 2220) 53 MG/DL CALC LDL CHOL (test code = 2237) 159 MG/DL RISK RATIO LDL/HDL (test cod e = 2238) 3.00 RATIO Jose ArnoldCBC W/AUTO [id number] 00:00:00* Test Item Value Reference Range Interpretation Comme nts WBC (test code = 1001) 7.5 K/UL RBC (test code = 1002) 5.19 M/UL HEMOGLOBIN (test code = 1003) 16.1 G/DL HEMATOCRIT (test code = 1004) 47.4 % MCV (test code = 1005) 91.3 fL MCH (test code = 1006) 31.0 PG MCHC (test code = 1007) 34.0 G/DL RDW (test code = 1038) 12.9 % NEUTROPHILS (test code = 1008) 56.9 % LYMPHOCYTES (test code = 1010) 32.6 % MONOCYTES (test code = 1011) 6.8 % EOSINOPHILS (test code = 1012) 2.7 % BASOPHILS (test code = 1013) 0.7 % IMMATURE GRANULOCYTES (test code = 1036) 0.3 % NUCLEATED RBCS (test code = 1065) 0.0 /100WBC'S PLATELET COUNT (test code = 1015) 250 K/UL ABSOLUTE NEUTROPHILS (test c ode = 1066) 4.29 K/UL ABSOLUTE LYMPHOCYTES (test c ode = 1067) 2.45 K/UL ABSOLUTE MONOCYTES (test cod e = 1068) 0.51 K/UL ABSOLUTE EOSINOPHILS (test c ode = 1040) 0.20 K/UL ABSOLUTE BASOPHILS (test cod e = 1069) 0.05 K/UL ABS IMMATURE GRANULOCYTES (t est code = 1020) 0.02 K/UL ABS NUCLEATED RBCS (test cod e = 77001) 0.00 K/UL Jose ArnoldHIV 1/2 4TH GEN, RFLX [id number] 00:00:00* Test Item Value Reference Range Interpretation Comme nts HIV 1/2 4TH GEN, RFLX CONF ( test code = 3514) NON-REACTIVE Jose ArnoldSEDIMENTATION [id number] 00:00:00* Test Item Value Reference Range Interpretation Comme nts SEDIMENTATION RATE (test cod e = 1017) 10 MM/HOUR Jose ArnoldC-REACTIVE [id number] 00:00:00* Test Item Value Reference Range Interpretation Comme nts C-REACTIVE PROTEIN (test cod e = 3513) 0.5 MG/DL Jose ArnoldACUTE HEPATITIS [id number] 00:00:00* Test Item Value Reference Range Interpretation Comme nts HEPATITIS A IgM (test code = 68423) NON-REACTIVE HEPATITIS B CORE IgM (test c ode = 4644) NON-REACTIVE HEPATITIS B SURF AG (test co de = 2739) NON-REACTIVE HEPATITIS C ANTIBODY (test c ode = 4675) NON-REACTIVE INTERPRETATION HEPATITIS A: (test code = 2552) (NOTE) INTERPRETATION HEPATITIS B: (test code = 15792) (NOTE) INTERPRETATION HEPATITIS C: (test code = 90006) (NOTE) Jose ArnoldCOMPREHENSIVE METABOLIC [id number] 00:00:00* Test Item Value Reference Range Interpretation Comme nts GLUCOSE (test code = 2217) 110 MG/DL BUN (test code = 2208) 10 MG/DL CREATININE (test code = 2214) 0.72 MG/DL eGFR (2020 CKD-EPI) (test co de = 43991) 97 ML/MIN/1.73 CALC BUN/CREAT (test code = 2235) 14 RATIO SODIUM (test code = 2231) 143 MEQ/L POTASSIUM (test code = 2228) 4.0 MEQ/L CHLORIDE (test code = 2215) 104 MEQ/L CARBON DIOXIDE (test code = 2206) 27 MEQ/L CALCIUM (test code = 2209) 9.2 MG/DL PROTEIN, TOTAL (test code = 2229) 7.6 G/DL ALBUMIN (test code = 2201) 4.5 G/DL CALC GLOBULIN (test code = 2240) 3.1 G/DL CALC A/G RATIO (test code = 2234) 1.5 RATIO BILIRUBIN, TOTAL (test code = 2207) 0.5 MG/DL ALKALINE PHOSPHATASE (test code = 220) 99 U/L AST (test code = 2218) 23 U/L ALT (test code = 2219) 39 U/L Jose ArnoldHEMOGLOBIN [id number] 00:00:00* Test Item Value Reference Range Interpretation Comme nts HEMOGLOBIN A1c (test code = 27413) 5.7 % Jose ArnoldLIPID [id number] 00:00:00* Test Item Value Reference Range Interpretation Comme nts CHOLESTEROL (test code = 2210) 246 MG/DL TRIGLYCERIDES (test code = 2232) 186 MG/DL HDL CHOLESTEROL (test code = 2220) 53 MG/DL CALC LDL CHOL (test code = 2237) 159 MG/DL RISK RATIO LDL/HDL (test cod e = 2238) 3.00 RATIO Jose ArnoldCBC W/AUTO [id number] 00:00:00* Test Item Value Reference Range Interpretation Comme nts WBC (test code = 1001) 7.5 K/UL RBC (test code = 1002) 5.19 M/UL HEMOGLOBIN (test code = 1003) 16.1 G/DL HEMATOCRIT (test code = 1004) 47.4 % MCV (test code = 1005) 91.3 fL MCH (test code = 1006) 31.0 PG MCHC (test code = 1007) 34.0 G/DL RDW (test code = 1038) 12.9 % NEUTROPHILS (test code = 1008) 56.9 % LYMPHOCYTES (test code = 1010) 32.6 % MONOCYTES (test code = 1011) 6.8 % EOSINOPHILS (test code = 1012) 2.7 % BASOPHILS (test code = 1013) 0.7 % IMMATURE GRANULOCYTES (test code = 1036) 0.3 % NUCLEATED RBCS (test code = 1065) 0.0 /100WBC'S PLATELET COUNT (test code = 1015) 250 K/UL ABSOLUTE NEUTROPHILS (test c ode = 1066) 4.29 K/UL ABSOLUTE LYMPHOCYTES (test c ode = 1067) 2.45 K/UL ABSOLUTE MONOCYTES (test cod e = 1068) 0.51 K/UL ABSOLUTE EOSINOPHILS (test c ode = 1040) 0.20 K/UL ABSOLUTE BASOPHILS (test cod e = 1069) 0.05 K/UL ABS IMMATURE GRANULOCYTES (t est code = 1020) 0.02 K/UL ABS NUCLEATED RBCS (test cod e = 44235) 0.00 K/UL Jose ArnoldHIV /2 4TH GEN, RFLX [id number] 00:00:00* Test Item Value Reference Range Interpretation Comme nts HIV /2 4TH GEN, RFLX CONF ( test code = 3514) NON-REACTIVE Jose ArnoldH. PYLORI (BREATH)2022-03-05 15:23:05* Test Item Value Reference Range Interpretation Comme nts H. PYLORI (BREATH) (test code = 75038) NEGATIVE NEGATIVE UNLESS OTHER GORE INDICATED, ALL TESTING PERFORMED [facility] [address] [place] [address] [employer] APPRENTICE: RAMIREZ CERON M.D. CLIA NUMBER [id number] [place]. [id number] CBC W/AUTO DIFF WITH [id number] 05:19:43* Test Item Value Reference Range Interpretation [...] 0.00-0.10 ABS NUCLEATED RBCS (test code = 90983) 0.04 K/UL 0.00-0.11 H. PYLORI (BREATH)2022-03-05 00:00:00* Test Item Value Reference Range Interpretation Comme nts H. PYLORI (BREATH) (test cod e = 78052) NEGATIVE [facility] [id number] 00:00:00* Test Item Value Reference Range Interpretation [...] ABS NUCLEATED RBCS (test cod e = 65002) 0.04 K/UL Jose ArnoldH. PYLORI (BREATH)2022-03-05 00:00:00* Test Item Value Reference Range Interpretation Comme nts H. PYLORI (BREATH) (test cod e = 40106) NEGATIVE Jose ArnoldCBC W/AUTO [id number] 00:00:00* Test Item Value Reference Range Interpretation [...] ABS NUCLEATED RBCS (test cod e = 05765) 0.04 K/UL Jose ArnoldH. PYLORI (BREATH)2022-03-05 00:00:00* Test Item Value Reference Range Interpretation Comme nts H. PYLORI (BREATH) (test cod e = 63501) NEGATIVE Jose ArnoldCBC W/AUTO [id number] 00:00:00* Test Item Value Reference Range Interpretation [...] ABS NUCLEATED RBCS (test cod e = 06265) 0.04 K/UL Jose Wilson AustinH. PYLORI (BREATH)2022-03-05 00:00:00* Test Item Value Reference Range Interpretation Comme nts H. PYLORI (BREATH) (test cod e = 54516) NEGATIVE Jose Wilson AustinCBC W/AUTO [id number] 00:00:00* Test Item Value Reference Range Interpretation [...] ABS NUCLEATED RBCS (test cod e = 86266) 0.04 K/UL Jose ArnoldH. PYLORI (BREATH)2022-03-05 00:00:00* Test Item Value Reference Range Interpretation Comme nts H. PYLORI (BREATH) (test cod e = 13704) NEGATIVE Jose Wilson AustinCBC W/AUTO [id number] 00:00:00* Test Item Value Reference Range Interpretation [...] ABS NUCLEATED RBCS (test cod e = 97310) 0.04 K/UL Jose ArnoldH. PYLORI (BREATH)2022-03-05 00:00:00* Test Item Value Reference Range Interpretation Comme nts H. PYLORI (BREATH) (test cod e = 13282) NEGATIVE Jose ArnoldCBC W/AUTO [id number] 00:00:00* Test Item Value Reference Range Interpretation [...] ABS NUCLEATED RBCS (test cod e = 26832) 0.04 K/UL Jose ArnlodH. PYLORI (BREATH)2022-03-05 00:00:00* Test Item Value Reference Range Interpretation Comme nts H. PYLORI (BREATH) (test cod e = 91009) NEGATIVE Jose ArnoldCBC W/AUTO [id number] 00:00:00* Test Item Value Reference Range Interpretation [...] ABS NUCLEATED RBCS (test cod e = 02886) 0.04 K/UL Jose Wilson AustinH. PYLORI (BREATH)2022-03-05 00:00:00* Test Item Value Reference Range Interpretation Comme nts H. PYLORI (BREATH) (test cod e = 21020) NEGATIVE Jose ArnoldCBC W/AUTO [id number] 00:00:00* Test Item Value Reference Range Interpretation [...] ABS NUCLEATED RBCS (test cod e = 57067) 0.04 K/UL Jose ArnoldPOCT GLUCOSE (AUTOMATED)2021-09-25 08:08:54* Test Item Value Reference Range Interpretation Comme nts POCT GLU (test code = 5181324556) 102 mg/dL 70-110 Lab Interpretation (test cod e = 42656-1) [facility]TROP[facility] [id number] 05:03:02* Test Item Value Reference Range Interpretation Comments TROPONIN I (test code = 9021581390) 0.001 ng/mL See_Comment [Automated message] The system [...] of biotin. Lab Interpretation (test code = 36546-7) Normal [facility]COM. METABOLIC PANEL (27409)2021-09-25 04:52:19* Test Item Value Reference Range Interpretation Comme nts NA (test code = 2238042409) 140 mmol/L 135-145 K (test code = 9013711957) 4.5 mmol/L 3.5-5.0 CL (test code = 5864111994) 103 mmol/L 98-108 CO2 TOTAL (test code = 3125919360) 25 mmol/L 23-31 AGAP (test code = 4173441871) 2-16 BUN (test code = 0229192938) 13 mg/dL 7-23 GLUCOSE (test code = 9808173245) 141 mg/dL 70-110 H CREATININE (test code = 6176757506) 0.60 mg/dL 0.50-1.04 TOTAL BILI (test code = 7495085909) 0.6 mg/dL 0.1-1.1 CALCIUM (test code = 4464790014) 9.4 mg/dL 8.6-10.6 T PROTEIN (test code = 6107377025) 8.1 g/dL 6.3-8.2 ALBUMIN (test code = 5488119108) 4.7 g/dL 3.5-5.0 ALK PHOS (test code = 3906440860) 98 U/L 34-122 ALTv (test code = 1742-6) 25 U/L 5-35 AST(SGOT) (test code = 6601070355) 27 U/L 13-40 eGFR (test code = 3713743743) mL/min/1.73m2 MARY (test code = MARY) Association [...] imaging tests). Lab Interpretation (test code = 59672-6) Abnormal [facility]LIPASE2022-[facility]-18 04:51:39* Test Item Value Reference Range Interpretation Comme nts LIPASE (test code = 0556280824) 118 U/L 0-220 Lab Interpretation (test cod e = 33238-0) Normal [facility] SpringsCB WITH [id number] 04:38:15* Test Item Value Reference Range Interpretation [...] 34.0 g/dL 31.6-35.1 RDW-SD (test code = 94145-9) 41.5 fL 39.0-49.9 RDW-CV (test code = 788-0) 12.8 % 12.0-15.5 PLT (test code = 777-3) See_Comment [Automated message] The system which generated this result transmitted reference range: 166 - 358 10*3/?L. The reference range was not used to interpret this result as normal/abnormal. MPV (test code = 67168-6) 11.7 fL 9.5-12.9 NRBC/100 WBC (test code = 4794904247) See_Comment [Automated message] The system which generated this result transmitted reference range: 0.0 - 10.0 /100 WBCs. The reference range was not used to interpret this result as normal/abnormal. NRBC x10^3 (test code = 4039486385) <0.01 See_Comment [Automated message] The system which generated this result transmitted reference range: 10*3/?L. The reference range was not used to interpret this result as normal/abnormal. GRAN MAT (NEUT) % (test code = 770-8) 78.8 % IMM GRAN % (test code = 2711394155) 0.30 % LYMPH % (test code = 736-9) 14.7 % MONO % (test code = 5905-5) 5.0 % EOS % (test code = 713-8) 0.6 % BASO % (test code = 706-2) 0.6 % GRAN MAT x10^3(ANC) (test code = 5712245151) 10.01 10*3/uL 1.88-7.09 H IMM GRAN x10^3 (test code = 1025913699) 0.04 10*3/uL 0.00-0.06 LYMPH x10^3 (test code = 731-0) 1.86 10*3/uL 1.32-3.29 MONO x10^3 (test code = 742-7) 0.63 10*3/uL 0.33-0.92 EOS x10^3 (test code = 711-2) 0.08 10*3/uL 0.03-0.39 BASO x10^3 (test code = 704-7) 0.07 10*3/uL 0.01-0.07 Lab Interpretation (test code = 48485-4) [facility] [id number] 08:39:16* Test Item Value Reference Range Interpretation Comme nts ANTI-NUCLEAR ANTIBODIES (test code = 3506) NEGATIVE NEGATIVE Methodology is I ndirect Immunofluorescent Assay (IFA) with a titering system using [id number] cells (Hep2 cells transfected with SS-A/Ro). HIV 1/2 4TH GEN, RFLX [id number] 03:26:41* Test Item Value Reference Range Interpretation Comme nts HIV 1/2 4TH GEN, RFLX CONF (test code = 3514) NON-REACTIVE NON-REACTIVE UNLESS OTHERWISE INDICATED, ALL TESTING PERFORMED ATCLINICAL PATHOLOGY [employer] [address] [place] [id number] [employer] APPRENTICE: RAMIREZ CERON M.D. CLIA NUMBER [id number] [place]. [id number] [place] REFLEX AUTOIMMUNE AB [id number] 00:00:00* Test Item Value Reference Range Interpretation Comme nts ANTI-NUCLEAR ANTIBODIES (nicolle t code = 3506) NEGATIVE Jose F AustinHIV AB/AG COMBO RFLX [id number] 00:00:00* Test Item Value Reference Range Interpretation Comme nts HIV 1/2 4TH GEN, RFLX CONF ( test code = 3514) NON-REACTIVE Jose F AustinANA REFLEX AUTOIMMUNE AB [id number] 00:00:00* Test Item Value Reference Range Interpretation Comme nts ANTI-NUCLEAR ANTIBODIES (nicolle t code = 3506) NEGATIVE Jose F AustinHIV AB/AG COMBO RFLX [id number] 00:00:00* Test Item Value Reference Range Interpretation Comme nts HIV 1/2 4TH GEN, RFLX CONF ( test code = 3514) NON-REACTIVE Jose F AustinANA REFLEX AUTOIMMUNE AB [id number] 00:00:00* Test Item Value Reference Range Interpretation Comme nts ANTI-NUCLEAR ANTIBODIES (nicolle t code = 3506) NEGATIVE Jose F AustinHIV AB/AG COMBO RFLX [id number] 00:00:00* Test Item Value Reference Range Interpretation Comme nts HIV 1/2 4TH GEN, RFLX CONF ( test code = 3514) NON-REACTIVE Jose F AustinANA REFLEX AUTOIMMUNE AB [id number] 00:00:00* Test Item Value Reference Range Interpretation Comme nts ANTI-NUCLEAR ANTIBODIES (nicolle t code = 3506) NEGATIVE Jose F AustinHIV AB/AG COMBO RFLX [id number] 00:00:00* Test Item Value Reference Range Interpretation Comme nts HIV 1/2 4TH GEN, RFLX CONF ( test code = 3514) NON-REACTIVE Jose F AustinANA REFLEX AUTOIMMUNE AB [id number] 00:00:00* Test Item Value Reference Range Interpretation Comme nts ANTI-NUCLEAR ANTIBODIES (nicolle t code = 3506) NEGATIVE Jose F AustinHIV AB/AG COMBO RFLX [id number] 00:00:00* Test Item Value Reference Range Interpretation Comme nts HIV 1/2 4TH GEN, RFLX CONF ( test code = 3514) NON-REACTIVE Jose F AustinANA REFLEX AUTOIMMUNE AB [id number] 00:00:00* Test Item Value Reference Range Interpretation Comme nts ANTI-NUCLEAR ANTIBODIES (nicolle t code = 3506) NEGATIVE Jose F AustinHIV AB/AG COMBO RFLX [id number] 00:00:00* Test Item Value Reference Range Interpretation Comme nts HIV 1/2 4TH GEN, RFLX CONF ( test code = 3514) NON-REACTIVE Jose F AustinANA REFLEX AUTOIMMUNE AB [id number] 00:00:00* Test Item Value Reference Range Interpretation Comme nts ANTI-NUCLEAR ANTIBODIES (nicolle t code = 3506) NEGATIVE Jose F AustinHIV AB/AG COMBO RFLX [id number] 00:00:00* Test Item Value Reference Range Interpretation Comme nts HIV 1/2 4TH GEN, RFLX CONF ( test code = 3514) NON-REACTIVE Jose F AustinANA REFLEX AUTOIMMUNE AB [id number] 00:00:00* Test Item Value Reference Range Interpretation Comme nts ANTI-NUCLEAR ANTIBODIES (nicolle t code = 3506) NEGATIVE Jose F AustinHIV AB/AG COMBO RFLX [id number] 00:00:00* Test Item Value Reference Range Interpretation Comme nts HIV 1/2 4TH GEN, RFLX CONF ( test code = 3514) NON-REACTIVE Jose ArnoldTSH, THIRD [id number] 02:23:43* Test Item Value Reference Range Interpretation Comme nts TSH, THIRD GENERATION (test code = 2821) 3.790 UIU/ML 0.400-4.100 RHEUMATOID FACTOR, [id number] 02:15:22* Test Item Value Reference Range Interpretation Comme nts RHEUMATOID FACTOR, QUANT (te st code = 3502) <10 IU/ML <14 COMPREHENSIVE METABOLIC [id number] 02:15:07* Test Item Value Reference Range Interpretation Comme nts GLUCOSE (test code = 2217) 98 MG/DL 70-99 BUN (test code = 2208) 9 MG/DL 6-20 CREATININE (test code = 2214) 0.61 MG/DL 0.60-1.30 eGFR (2020 CKD-EPI) (test code = ) 105 ML/MIN/1.73 >60 CALC BUN/CREAT (test code = 2234) 15 RATIO 6-28 SODIUM (test code = 2230) 142 MEQ/L 133-146 POTASSIUM (test code = 2227) 4.4 MEQ/L 3.5-5.4 CHLORIDE (test code = 2214) 103 MEQ/L 95-107 CARBON DIOXIDE (test code = 2205) 20 MEQ/L 19-31 CALCIUM (test code = 2208) 9.7 MG/DL 8.5-10.5 PROTEIN, TOTAL (test code = 2228) 7.5 G/DL 6.1-8.3 ALBUMIN (test code = 2200) 4.3 G/DL 3.5-5.2 CALC GLOBULIN (test code = 2239) 3.2 G/DL 1.9-3.7 CALC A/G RATIO (test code = 2233) 1.3 RATIO 1.0-2.6 BILIRUBIN, TOTAL (test code = 2206) 0.6 MG/DL See_Comment [Automated me ssage] The system which generated this result transmitted reference range: <=1.2. The reference range was not used to interpret this result as normal/abnormal. ALKALINE PHOSPHATASE (test code = 2203) 97 U/L 40-136 AST (test code = 2217) 19 U/L 9-40 ALT (test code = 2218) 25 U/L 5-40 LIPID [id number] 02:15:07* Test Item Value Reference Range Interpretation Comme nts CHOLESTEROL (test code = 2209) 215 MG/DL <200 H TRIGLYCERIDES (test code = 2231) 187 MG/DL <150 H HDL CHOLESTEROL (test code = 2219) 48 MG/DL >39 CALC LDL CHOL (test code = 2236) 135 MG/DL <100 H NOTE: CALCULATED LDL IS BASED ON ERICKA-SINGH METHOD WHICHINCLUDES ADJUSTABLE TRIGLYCERIDE:VLDL CHOLESTEROL RATIO.THIS FACTOR VARIES BY MEASURED TRIGLYCERIDE AND NON-HDLCHOLESTEROL CONCENTRATIONS WITH INCREASED CALCULATED LDL SEENIN HIGHER TRIGLYCERIDE OR LOWER NON-HDL SPECIMENS. FOR MOREINFORMATION, SEE CLIENT ANNOUNCEMENT AT [email or web address] RISK RATIO LDL/HDL (test code = 223) 2.81 RATIO <3.22 LIPID [id number] 00:00:00* Test Item Value Reference Range Interpretation Comme nts CHOLESTEROL (test code = 2210) 215 MG/DL TRIGLYCERIDES (test code = 2232) 187 MG/DL HDL CHOLESTEROL (test code = 2220) 48 MG/DL CALC LDL CHOL (test code = 2237) 135 MG/DL RISK RATIO LDL/HDL (test cod e = 2238) 2.81 RATIO Jose ArnoldCOMPREHENSIVE METABOLIC [id number] 00:00:00* Test Item Value Reference Range Interpretation Comme nts GLUCOSE (test code = 2217) 98 MG/DL BUN (test code = 2208) 9 MG/DL CREATININE (test code = 2214) 0.61 MG/DL eGFR (2020 CKD-EPI) (test code = 27992) 105 ML/MIN/1.73 CALC BUN/CREAT (test code = [...] = 2219) 25 U/L Jose ArnoldRHEUMATOID FACTOR, [id number] 00:00:00* Test Item Value Reference Range Interpretation Comme nts RHEUMATOID FACTOR, QUANT (te st code = 3502) <10 IU/ML Jose [id number] 00:00:00* Test Item Value Reference Range Interpretation Comme nts TSH, THIRD GENERATION (test code = 2821) 3.790 UIU/ML Jose ArnoldLIPID [id number] 00:00:00* Test Item Value Reference Range Interpretation Comme nts CHOLESTEROL (test code = 2210) 215 MG/DL TRIGLYCERIDES (test code = 2232) 187 MG/DL HDL CHOLESTEROL (test code = 2220) 48 MG/DL CALC LDL CHOL (test code = 2237) 135 MG/DL RISK RATIO LDL/HDL (test cod e = 2238) 2.81 RATIO Jose ArnoldCOMPREHENSIVE METABOLIC [id number] 00:00:00* Test Item Value Reference Range Interpretation Comme nts GLUCOSE (test code = 2217) 98 MG/DL BUN (test code = 2208) 9 MG/DL CREATININE (test code = 2214) 0.61 MG/DL eGFR (2020 CKD-EPI) (test code = 94556) 105 ML/MIN/1.73 CALC BUN/CREAT (test code = [...] = 2219) 25 U/L Jose ArnoldRHEUMATOID FACTOR, [id number] 00:00:00* Test Item Value Reference Range Interpretation Comme nts RHEUMATOID FACTOR, QUANT (te st code = 3502) <10 IU/ML Jose [id number] 00:00:00* Test Item Value Reference Range Interpretation Comme nts TSH, THIRD GENERATION (test code = 2821) 3.790 UIU/ML Jose ArnoldLIPID [id number] 00:00:00* Test Item Value Reference Range Interpretation Comme nts CHOLESTEROL (test code = 2210) 215 MG/DL TRIGLYCERIDES (test code = 2232) 187 MG/DL HDL CHOLESTEROL (test code = 2220) 48 MG/DL CALC LDL CHOL (test code = 2237) 135 MG/DL RISK RATIO LDL/HDL (test cod e = 2238) 2.81 RATIO Jose ArnoldCOMPREHENSIVE METABOLIC [id number] 00:00:00* Test Item Value Reference Range Interpretation Comme nts GLUCOSE (test code = 2217) 98 MG/DL BUN (test code = 2208) 9 MG/DL CREATININE (test code = 2214) 0.61 MG/DL eGFR (2020 CKD-EPI) (test code = 41272) 105 ML/MIN/1.73 CALC BUN/CREAT (test code = [...] = 2219) 25 U/L Jose ArnoldRHEUMATOID FACTOR, [id number] 00:00:00* Test Item Value Reference Range Interpretation Comme nts RHEUMATOID FACTOR, QUANT (te st code = 3502) <10 IU/ML Jose [id number] 00:00:00* Test Item Value Reference Range Interpretation Comme nts TSH, THIRD GENERATION (test code = 2821) 3.790 UIU/ML Jose ArnoldLIPID [id number] 00:00:00* Test Item Value Reference Range Interpretation Comme nts CHOLESTEROL (test code = 2210) 215 MG/DL TRIGLYCERIDES (test code = 2232) 187 MG/DL HDL CHOLESTEROL (test code = 2220) 48 MG/DL CALC LDL CHOL (test code = 2237) 135 MG/DL RISK RATIO LDL/HDL (test cod e = 2238) 2.81 RATIO Jose Wilson AustinCOMPREHENSIVE METABOLIC [id number] 00:00:00* Test Item Value Reference Range Interpretation Comme nts GLUCOSE (test code = 2217) 98 MG/DL BUN (test code = 2208) 9 MG/DL CREATININE (test code = 2214) 0.61 MG/DL eGFR (2020 CKD-EPI) (test code = 34578) 105 ML/MIN/1.73 CALC BUN/CREAT (test code = 2235) 15 RATIO SODIUM (test code = 223) 142 MEQ/L POTASSIUM (test code = 2228) [...] = 2219) 25 U/L Jose ArnoldRHEUMATOID FACTOR, [id number] 00:00:00* Test Item Value Reference Range Interpretation Comme nts RHEUMATOID FACTOR, QUANT (te st code = 3502) <10 IU/ML Jose [id number] 00:00:00* Test Item Value Reference Range Interpretation Comme nts TSH, THIRD GENERATION (test code = 2821) 3.790 UIU/ML Jose ArnoldLIPID [id number] 00:00:00* Test Item Value Reference Range Interpretation Comme nts CHOLESTEROL (test code = 2210) 215 MG/DL TRIGLYCERIDES (test code = 2232) 187 MG/DL HDL CHOLESTEROL (test code = 2220) 48 MG/DL CALC LDL CHOL (test code = 2236) 135 MG/DL RISK RATIO LDL/HDL (test cod e = 2238) 2.81 RATIO Jose F AustinCOMPREHENSIVE METABOLIC [id number] 00:00:00* Test Item Value Reference Range Interpretation Comme nts GLUCOSE (test code = 2217) 98 MG/DL BUN (test code = 2208) 9 MG/DL CREATININE (test code = 2214) 0.61 MG/DL eGFR (2020 CKD-EPI) (test code = 20100) 105 ML/MIN/1.73 CALC BUN/CREAT (test code = 2235) 15 RATIO SODIUM (test code = 223) 142 MEQ/L POTASSIUM (test code = 2228) 4.4 MEQ/L CHLORIDE (test code = 2215) 103 MEQ/L CARBON DIOXIDE (test code = 2206) 20 MEQ/L CALCIUM (test code = 2209) 9.7 MG/DL PROTEIN, TOTAL (test code = 222) 7.5 G/DL ALBUMIN (test code = 2201) 4.3 G/DL CALC GLOBULIN (test code = 2240) 3.2 G/DL CALC A/G RATIO (test code = 2234) 1.3 RATIO BILIRUBIN, TOTAL (test code = 2207) 0.6 MG/DL ALKALINE PHOSPHATASE (test code = 2204) 97 U/L AST (test code = 2218) 19 U/L ALT (test code = 2219) 25 U/L Jose ArnoldRHEUMATOID FACTOR, [id number] 00:00:00* Test Item Value Reference Range Interpretation Comme nts RHEUMATOID FACTOR, QUANT (te st code = 3502) <10 IU/ML Jose [id number] 00:00:00* Test Item Value Reference Range Interpretation Comme nts TSH, THIRD GENERATION (test code = 2821) 3.790 UIU/ML Jose ArnoldLIPID [id number] 00:00:00* Test Item Value Reference Range Interpretation Comme nts CHOLESTEROL (test code = 2210) 215 MG/DL TRIGLYCERIDES (test code = 2232) 187 MG/DL HDL CHOLESTEROL (test code = 2220) 48 MG/DL CALC LDL CHOL (test code = 2237) 135 MG/DL RISK RATIO LDL/HDL (test cod e = 2238) 2.81 RATIO Jose ArnoldCOMPREHENSIVE METABOLIC [id number] 00:00:00* Test Item Value Reference Range Interpretation Comme nts GLUCOSE (test code = 2217) 98 MG/DL BUN (test code = 2208) 9 MG/DL CREATININE (test code = 2214) 0.61 MG/DL eGFR (2020 CKD-EPI) (test code = 74885) 105 ML/MIN/1.73 CALC BUN/CREAT (test code = 2235) 15 RATIO SODIUM (test code = 223) 142 MEQ/L POTASSIUM (test code = 2228) 4.4 MEQ/L CHLORIDE (test code = 2215) 103 MEQ/L CARBON DIOXIDE (test code = 2206) 20 MEQ/L CALCIUM (test code = 2209) 9.7 MG/DL PROTEIN, TOTAL (test code = 222) 7.5 G/DL ALBUMIN (test code = 2201) 4.3 G/DL CALC GLOBULIN (test code = 2240) 3.2 G/DL CALC A/G RATIO (test code = 2234) 1.3 RATIO BILIRUBIN, TOTAL (test code = 220) 0.6 MG/DL ALKALINE PHOSPHATASE (test code = 2204) 97 U/L AST (test code = 2218) 19 U/L ALT (test code = 2219) 25 U/L Jose Wilson AustinRHEUMATOID FACTOR, [id number] 00:00:00* Test Item Value Reference Range Interpretation Comme nts RHEUMATOID FACTOR, QUANT (te st code = 3502) <10 IU/ML Jose [id number] 00:00:00* Test Item Value Reference Range Interpretation Comme nts TSH, THIRD GENERATION (test code = 2821) 3.790 UIU/ML Jose Wilson AustinLIPID [id number] 00:00:00* Test Item Value Reference Range Interpretation Comme nts CHOLESTEROL (test code = 2210) 215 MG/DL TRIGLYCERIDES (test code = 2232) 187 MG/DL HDL CHOLESTEROL (test code = 2220) 48 MG/DL CALC LDL CHOL (test code = 2237) 135 MG/DL RISK RATIO LDL/HDL (test cod e = 2238) 2.81 RATIO Jose ArnoldCOMPREHENSIVE METABOLIC [id number] 00:00:00* Test Item Value Reference Range Interpretation Comme nts GLUCOSE (test code = 2217) 98 MG/DL BUN (test code = 2208) 9 MG/DL CREATININE (test code = 2214) 0.61 MG/DL eGFR (2020 CKD-EPI) (test code = 45117) 105 ML/MIN/1.73 CALC BUN/CREAT (test code = [...] = 2219) 25 U/L Jose ArnoldRHEUMATOID FACTOR, [id number] 00:00:00* Test Item Value Reference Range Interpretation Comme nts RHEUMATOID FACTOR, QUANT (te st code = 3502) <10 IU/ML Jose [id number] 00:00:00* Test Item Value Reference Range Interpretation Comme nts TSH, THIRD GENERATION (test code = 2821) 3.790 UIU/ML Jose ArnoldLIPID [id number] 00:00:00* Test Item Value Reference Range Interpretation Comme nts CHOLESTEROL (test code = 2210) 215 MG/DL TRIGLYCERIDES (test code = 2232) 187 MG/DL HDL CHOLESTEROL (test code = 2220) 48 MG/DL CALC LDL CHOL (test code = 2237) 135 MG/DL RISK RATIO LDL/HDL (test cod e = 2238) 2.81 RATIO Jose ArnoldCOMPREHENSIVE METABOLIC [id number] 00:00:00* Test Item Value Reference Range Interpretation Comme nts GLUCOSE (test code = 2217) 98 MG/DL BUN (test code = 2208) 9 MG/DL CREATININE (test code = 2214) 0.61 MG/DL eGFR (2020 CKD-EPI) (test code = 59085) 105 ML/MIN/1.73 CALC BUN/CREAT (test code = 2235) 15 RATIO SODIUM (test code = 2231) 142 MEQ/L POTASSIUM (test code = 2228) 4.4 MEQ/L CHLORIDE (test code = 2215) 103 MEQ/L CARBON DIOXIDE (test code = 2206) 20 MEQ/L CALCIUM (test code = 2209) 9.7 MG/DL PROTEIN, TOTAL (test code = 222) 7.5 G/DL ALBUMIN (test code = 2201) 4.3 G/DL CALC GLOBULIN (test code = 2240) 3.2 G/DL CALC A/G RATIO (test code = 2234) 1.3 RATIO BILIRUBIN, TOTAL (test code = 2207) 0.6 MG/DL ALKALINE PHOSPHATASE (test code = 2203) 97 U/L AST (test code = 221) 19 U/L ALT (test code = 221) 25 U/L Jose ArnoldRHEUMATOID FACTOR, [id number] 00:00:00* Test Item Value Reference Range Interpretation Comme nts RHEUMATOID FACTOR, QUANT (te st code = 3502) <10 IU/ML Jose [id number] 00:00:00* Test Item Value Reference Range Interpretation Comme nts TSH, THIRD GENERATION (test code = 2821) 3.790 UIU/ML Jose ArnoldCBC W/AUTO DIFF WITH [id number] 04:28:25* Test Item Value Reference Range Interpretation [...] 0.00-0.10 ABS NUCLEATED RBCS (test code = 48864) 0.00 K/UL 0.00-0.11 CBC W/AUTO [id number] 00:00:00* Test Item Value Reference Range Interpretation [...] ABS NUCLEATED RBCS (test cod e = 38855) 0.00 K/UL [facility] [id number] 00:00:00* Test Item Value Reference Range Interpretation [...] ABS NUCLEATED RBCS (test cod e = 40472) 0.00 K/UL Jose Wilson AustinCBC W/AUTO [id number] 00:00:00* Test Item Value Reference Range Interpretation [...] ABS NUCLEATED RBCS (test cod e = 59227) 0.00 K/UL Jose ArnoldCBC W/AUTO [id number] 00:00:00* Test Item Value Reference Range Interpretation [...] ABS NUCLEATED RBCS (test cod e = 20937) 0.00 K/UL [facility] W/AUTO [id number] 00:00:00* Test Item Value Reference Range Interpretation [...] ABS NUCLEATED RBCS (test cod e = 00078) 0.00 K/UL [facility]CASE[facility]O [id number] 00:00:00* Test Item Value Reference Range Interpretation [...] ABS NUCLEATED RBCS (test cod e = 43091) 0.00 K/UL [facility]CASE[facility]AUTO [id number] 00:00:00* Test Item Value Reference Range Interpretation [...] ABS NUCLEATED RBCS (test cod e = 72810) 0.00 K/UL [facility]CASE[facility]AUTO [id number] 00:00:00* Test Item Value Reference Range Interpretation [...] ABS NUCLEATED RBCS (test cod e = 20960) 0.00 K/UL Jose ArnoldCOMPREHENSIVE METABOLIC [id number] 00:00:00* Test Item Value Reference Range Interpretation Comme nts GLUCOSE (test code = 2217) 93 MG/DL BUN (test code = 2208) 9 MG/DL CREATININE (test code = 2214) 0.63 MG/DL eGFR AMER. (test cod e = 92999) 117 ML/MIN/1.73 eGFR NON- AMER. (test code = 75564) 101 ML/MIN/1.73 CALC BUN/CREAT (test code = [...] (test code = 2219) 30 U/L Jose Wilson [id number] 00:00:00* Test Item Value Reference Range Interpretation Comme nts AMYLASE (test code = 2205) 58 U/L Jose Wilson [id number] 00:00:00* Test Item Value Reference Range Interpretation Comme nts LIPASE (test code = 2058) 26 U/L Jose ArnoldCBC W/AUTO [id number] 00:00:00* Test Item Value Reference Range Interpretation [...] ABS NUCLEATED RBCS (test cod e = 75343) 0.00 K/UL Jose ArnoldCOMPREHENSIVE METABOLIC [id number] 00:00:00* Test Item Value Reference Range Interpretation Comme nts GLUCOSE (test code = 2217) 93 MG/DL BUN (test code = 2208) 9 MG/DL CREATININE (test code = 2214) 0.63 MG/DL eGFR AMER. (test cod e = 75161) 117 ML/MIN/1.73 eGFR NON- AMER. (test code = 98164) 101 ML/MIN/1.73 CALC BUN/CREAT (test code = 2235) 14 RATIO SODIUM (test code = 2231) 142 MEQ/L POTASSIUM (test code = 2228) 4.4 MEQ/L CHLORIDE (test code = 2215) 104 MEQ/L CARBON DIOXIDE (test code = 2206) 26 MEQ/L CALCIUM (test code = 2209) 9.8 MG/DL PROTEIN, TOTAL (test code = 9) 7.6 G/DL ALBUMIN (test code = 2201) 4.7 G/DL CALC GLOBULIN (test code = 2240) 2.9 G/DL CALC A/G RATIO (test code = 2234) 1.6 RATIO BILIRUBIN, TOTAL (test code = 7) 0.8 MG/DL ALKALINE PHOSPHATASE (test code = 2203) 104 U/L AST (test code = 2217) 26 U/L ALT (test code = 2218) 30 U/L Jose Wilson [id number] 00:00:00* Test Item Value Reference Range Interpretation Comme nts AMYLASE (test code = 2204) 58 U/L Jose Wilson [id number] 00:00:00* Test Item Value Reference Range Interpretation Comme nts LIPASE (test code = 2057) 26 U/L Jose ArnoldCBC W/AUTO [id number] 00:00:00* Test Item Value Reference Range Interpretation [...] ABS NUCLEATED RBCS (test cod e = 55757) 0.00 K/UL Jose ArnoldCOMPREHENSIVE METABOLIC [id number] 00:00:00* Test Item Value Reference Range Interpretation Comme nts GLUCOSE (test code = 2217) 93 MG/DL BUN (test code = 2208) 9 MG/DL CREATININE (test code = 2214) 0.63 MG/DL eGFR AMER. (test cod e = 59167) 117 ML/MIN/1.73 eGFR NON- AMER. (test code = 85077) 101 ML/MIN/1.73 CALC BUN/CREAT (test code = [...] (test code = 2219) 30 U/L Jose Wilson [id number] 00:00:00* Test Item Value Reference Range Interpretation Comme nts AMYLASE (test code = 2205) 58 U/L Jose Wilson [id number] 00:00:00* Test Item Value Reference Range Interpretation Comme nts LIPASE (test code = 2057) 26 U/L Jose ArnoldCBC W/AUTO [id number] 00:00:00* Test Item Value Reference Range Interpretation [...] ABS NUCLEATED RBCS (test cod e = 06892) 0.00 K/UL Jose ArnoldCOMPREHENSIVE METABOLIC [id number] 00:00:00* Test Item Value Reference Range Interpretation Comme nts GLUCOSE (test code = 2217) 93 MG/DL BUN (test code = 2208) 9 MG/DL CREATININE (test code = 2214) 0.63 MG/DL eGFR AMER. (test cod e = 25806) 117 ML/MIN/1.73 eGFR NON- AMER. (test code = 97989) 101 ML/MIN/1.73 CALC BUN/CREAT (test code = [...] 0.8 MG/DL ALKALINE PHOSPHATASE (test code = 2203) 104 U/L AST (test code = 2218) 26 U/L ALT (test code = 2218) 30 U/L Jose Wilson [id number] 00:00:00* Test Item Value Reference Range Interpretation Comme nts AMYLASE (test code = 2204) 58 U/L Jose [id number] 00:00:00* Test Item Value Reference Range Interpretation Comme nts LIPASE (test code = 2057) 26 U/L Jose ArnoldCBC W/AUTO [id number] 00:00:00* Test Item Value Reference Range Interpretation [...] ABS NUCLEATED RBCS (test cod e = 98630) 0.00 K/UL Jose ArnoldCOMPREHENSIVE METABOLIC [id number] 00:00:00* Test Item Value Reference Range Interpretation Comme nts GLUCOSE (test code = 2217) 93 MG/DL BUN (test code = 2208) 9 MG/DL CREATININE (test code = 2214) 0.63 MG/DL eGFR AMER. (test cod e = 45800) 117 ML/MIN/1.73 eGFR NON- AMER. (test code = 76742) 101 ML/MIN/1.73 CALC BUN/CREAT (test code = [...] (test code = 2219) 30 U/L Jose Wilson [id number] 00:00:00* Test Item Value Reference Range Interpretation Comme nts AMYLASE (test code = 2205) 58 U/L Jose Wilson [id number] 00:00:00* Test Item Value Reference Range Interpretation Comme nts LIPASE (test code = 2057) 26 U/L Jose Wilson ClaytonCBC W/AUTO [id number] 00:00:00* Test Item Value Reference Range Interpretation [...] ABS NUCLEATED RBCS (test cod e = 61936) 0.00 K/UL Jose F AustinCOMPREHENSIVE METABOLIC [id number] 00:00:00* Test Item Value Reference Range Interpretation Comme nts GLUCOSE (test code = 2217) 93 MG/DL BUN (test code = 2208) 9 MG/DL CREATININE (test code = 2214) 0.63 MG/DL eGFR AMER. (test cod e = 04468) 117 ML/MIN/1.73 eGFR NON- AMER. (test code = 53086) 101 ML/MIN/1.73 CALC BUN/CREAT (test code = [...] (test code = 2219) 30 U/L Jose [id number] 00:00:00* Test Item Value Reference Range Interpretation Comme nts AMYLASE (test code = 2204) 58 U/L Jose [id number] 00:00:00* Test Item Value Reference Range Interpretation Comme nts LIPASE (test code = 2057) 26 U/L Jose ArnoldCBC W/AUTO [id number] 00:00:00* Test Item Value Reference Range Interpretation [...] ABS NUCLEATED RBCS (test cod e = 37626) 0.00 K/UL Jose ArnoldCOMPREHENSIVE METABOLIC [id number] 00:00:00* Test Item Value Reference Range Interpretation Comme nts GLUCOSE (test code = 2217) 93 MG/DL BUN (test code = 2208) 9 MG/DL CREATININE (test code = 2214) 0.63 MG/DL eGFR AMER. (test cod e = 12053) 117 ML/MIN/1.73 eGFR NON- AMER. (test code = 55503) 101 ML/MIN/1.73 CALC BUN/CREAT (test code = [...] (test code = 2219) 30 U/L Jose Wilson [id number] 00:00:00* Test Item Value Reference Range Interpretation Comme nts AMYLASE (test code = 2205) 58 U/L Jose Wilson SarpeeXAHHGJ0366-22-64 00:00:00* Test Item Value Reference Range Interpretation Comme nts LIPASE (test code = 2057) 26 U/L Jose ArnoldCBC W/AUTO [id number] 00:00:00* Test Item Value Reference Range Interpretation [...] ABS NUCLEATED RBCS (test cod e = 22342) 0.00 K/UL Jose F ClaytonCOMPREHENSIVE METABOLIC [id number] 00:00:00* Test Item Value Reference Range Interpretation Comme nts GLUCOSE (test code = 2217) 93 MG/DL BUN (test code = 2208) 9 MG/DL CREATININE (test code = 2214) 0.63 MG/DL eGFR AMER. (test cod e = 00091) 117 ML/MIN/1.73 eGFR NON- AMER. (test code = 06837) 101 ML/MIN/1.73 CALC BUN/CREAT (test code = [...] (test code = 2219) 30 U/L Jose Wilson [id number] 00:00:00* Test Item Value Reference Range Interpretation Comme nts AMYLASE (test code = 5) 58 U/L Jose ArnoldIazcgxTWTDDZ2409-34-18 00:00:00* Test Item Value Reference Range Interpretation Comme nts LIPASE (test code = 2057) 26 U/L Jose ArnoldCBC W/AUTO [id number] 00:00:00* Test Item Value Reference Range Interpretation [...] ABS NUCLEATED RBCS (test cod e = 23481) 0.00 K/UL Jose Wilson IcnlhpMECG-JbI-9 (COVID-19) by RT-PCR (HIGH RISK)2020-12-27 00:00:00* Test Item Value Reference Range Interpretation Comme nts SARS-CoV-2 INTERPRETATION (t est code = 99074) NEGATIVE SOURCE (test code = 81825) NOT SPECIFIED Jose Wilson AfhtrkNSMX-[id number]-8 (COVID-19) by RT-PCR (HIGH RISK)2020-12-27 00:00:00* Test Item Value Reference Range Interpretation Comme nts SARS-CoV-2 INTERPRETATION (t est code = 99430) NEGATIVE SOURCE (test code = 75491) NOT SPECIFIED Jose Wilson XqayrwPHNW-MqZ-5 (COVID-19) by RT-PCR (HIGH RISK)2020-12-27 00:00:00* Test Item Value Reference Range Interpretation Comme nts SARS-CoV-2 INTERPRETATION (t est code = 84068) NEGATIVE SOURCE (test code = 47956) NOT SPECIFIED Jose Wilson BvqseoWUDM-WxQ-8 (COVID-19) by RT-PCR (HIGH RISK)2020-12-27 00:00:00* Test Item Value Reference Range Interpretation Comme nts SARS-CoV-2 INTERPRETATION (t est code = 63977) NEGATIVE SOURCE (test code = 76496) NOT SPECIFIED Jose Wilson SgsfxrWWOQ-RtE-0 (COVID-19) by RT-PCR (HIGH RISK)2020-12-27 00:00:00* Test Item Value Reference Range Interpretation Comme nts SARS-CoV-2 INTERPRETATION (t est code = 63309) NEGATIVE SOURCE (test code = 09790) NOT SPECIFIED Jose Wilson YspzmsZPQX-UnQ-2 (COVID-19) by RT-PCR (HIGH RISK)2020-12-27 00:00:00* Test Item Value Reference Range Interpretation Comme nts SARS-CoV-2 INTERPRETATION (t est code = 94679) NEGATIVE SOURCE (test code = 97303) NOT SPECIFIED Jose Wilson YxfaajUYGG-MgA-3 (COVID-19) by RT-PCR (HIGH RISK)2020-12-27 00:00:00* Test Item Value Reference Range Interpretation Comme criss SARS-CoV-2 INTERPRETATION (t est code = 25821) NEGATIVE SOURCE (test code = 29488) NOT SPECIFIED Jose ArnoldSARS-CoV-2 (COVID-19) by RT-PCR (HIGH RISK)2020-12-27 00:00:00* Test Item Value Reference Range Interpretation Comme nts SARS-CoV-2 INTERPRETATION (t est code = 43174) NEGATIVE SOURCE (test code = 71591) NOT SPECIFIED Jose ArnoldLIPID [id number] 00:00:00* Test Item Value Reference Range Interpretation Comme nts CHOLESTEROL (test code = 2210) 225 MG/DL TRIGLYCERIDES (test code = 2232) 196 MG/DL HDL CHOLESTEROL (test code = 2220) 50 MG/DL CALC LDL CHOL (test code = 2237) 141 MG/DL RISK RATIO LDL/HDL (test cod e = 2238) 2.82 RATIO Jose ArnoldRHEUMATOID FACTOR, [id number] 00:00:00* Test Item Value Reference Range Interpretation Comme criss RHEUMATOID FACTOR, QUANT (te st code = 3502) <10 IU/ML Jose ArnoldANA (ANTI-NUCLEAR AB) WITH REFLEX [id number] 00:00:00* Test Item Value Reference Range Interpretation Comme criss ANTI-NUCLEAR ANTIBODIES (nicolle t code = 3506) NEGATIVE Jose ArnoldCCP [id number] 00:00:00* Test Item Value Reference Range Interpretation Comme criss CCP IgG (test code = 96287) <0.5 U/ML Jose ArnoldCBC W/AUTO [id number] 00:00:00* Test Item Value Reference Range Interpretation [...] (test code = 1015) 192 K/UL Jose [id number] 00:00:00* Test Item Value Reference Range Interpretation Comme nts TSH, THIRD GENERATION (test code = 2821) 2.790 UIU/ML Jose ArnoldCOMPREHENSIVE METABOLIC [id number] 00:00:00* Test Item Value Reference Range Interpretation Comme nts GLUCOSE (test code = 2217) 113 MG/DL BUN (test code = 2208) 12 MG/DL CREATININE (test code = 2214) 0.64 MG/DL eGFR AMER. (test cod e = 26202) 117 ML/MIN/1.73 eGFR NON- AMER. (test code = 94474) 101 ML/MIN/1.73 CALC BUN/CREAT (test code = [...] code = 2219) 29 U/L Jose ArnoldLIPID [id number] 00:00:00* Test Item Value Reference Range Interpretation Comme nts CHOLESTEROL (test code = 2210) 225 MG/DL TRIGLYCERIDES (test code = 2232) 196 MG/DL HDL CHOLESTEROL (test code = 2220) 50 MG/DL CALC LDL CHOL (test code = 2237) 141 MG/DL RISK RATIO LDL/HDL (test cod e = 2238) 2.82 RATIO Jose ArnoldRHEUMATOID FACTOR, [id number] 00:00:00* Test Item Value Reference Range Interpretation Comme criss RHEUMATOID FACTOR, QUANT (te st code = 3502) <10 IU/ML Jose Louise (ANTI-NUCLEAR AB) WITH REFLEX [id number] 00:00:00* Test Item Value Reference Range Interpretation Comme criss ANTI-NUCLEAR ANTIBODIES (nicolle t code = 3506) NEGATIVE Jose ArnoldCCP [id number] 00:00:00* Test Item Value Reference Range Interpretation Comme criss CCP IgG (test code = 99259) <0.5 U/ML Jose ArnoldCBC W/AUTO [id number] 00:00:00* Test Item Value Reference Range Interpretation [...] (test code = 1015) 192 K/UL Jose [id number] 00:00:00* Test Item Value Reference Range Interpretation Comme criss TSH, THIRD GENERATION (test code = 2821) 2.790 UIU/ML Jose ArnoldCOMPREHENSIVE METABOLIC [id number] 00:00:00* Test Item Value Reference Range Interpretation Comme nts GLUCOSE (test code = 2217) 113 MG/DL BUN (test code = 2208) 12 MG/DL CREATININE (test code = 2214) 0.64 MG/DL eGFR AMER. (test cod e = 45745) 117 ML/MIN/1.73 eGFR NON- AMER. (test code = 04817) 101 ML/MIN/1.73 CALC BUN/CREAT (test code = [...] (test code = 2219) 29 U/L Jose Wilson ClaytonLIPID [id number] 00:00:00* Test Item Value Reference Range Interpretation Comme nts CHOLESTEROL (test code = 2210) 225 MG/DL TRIGLYCERIDES (test code = 2232) 196 MG/DL HDL CHOLESTEROL (test code = 2220) 50 MG/DL CALC LDL CHOL (test code = 2237) 141 MG/DL RISK RATIO LDL/HDL (test cod e = 2238) 2.82 RATIO Jose Wilson ClaytonRHEUMATOID FACTOR, [id number] 00:00:00* Test Item Value Reference Range Interpretation Comme nts RHEUMATOID FACTOR, QUANT (te st code = 3502) <10 IU/ML Jose Wilson Aspen (ANTI-NUCLEAR AB) WITH REFLEX [id number] 00:00:00* Test Item Value Reference Range Interpretation Comme nts ANTI-NUCLEAR ANTIBODIES (nicolle t code = 3506) NEGATIVE Jose Wilson ClaytonCCP [id number] 00:00:00* Test Item Value Reference Range Interpretation Comme nts CCP IgG (test code = 83070) <0.5 U/ML Jose Wilson ClaytonCBC W/AUTO [id number] 00:00:00* Test Item Value Reference Range Interpretation [...] (test code = 1015) 192 K/UL Jose Wilson [id number] 00:00:00* Test Item Value Reference Range Interpretation Comme nts TSH, THIRD GENERATION (test code = 2821) 2.790 UIU/ML Jose ArnoldCOMPREHENSIVE METABOLIC [id number] 00:00:00* Test Item Value Reference Range Interpretation Comme nts GLUCOSE (test code = 2217) 113 MG/DL BUN (test code = 2208) 12 MG/DL CREATININE (test code = 2214) 0.64 MG/DL eGFR AMER. (test cod e = 34720) 117 ML/MIN/1.73 eGFR NON- AMER. (test code = 40512) 101 ML/MIN/1.73 CALC BUN/CREAT (test code = [...] (test code = 2219) 29 U/L Jose F AustinLIPID [id number] 00:00:00* Test Item Value Reference Range Interpretation Comme nts CHOLESTEROL (test code = 2210) 225 MG/DL TRIGLYCERIDES (test code = 2232) 196 MG/DL HDL CHOLESTEROL (test code = 2220) 50 MG/DL CALC LDL CHOL (test code = 2237) 141 MG/DL RISK RATIO LDL/HDL (test cod e = 2238) 2.82 RATIO Jose ArnoldRHEUMATOID FACTOR, [id number] 00:00:00* Test Item Value Reference Range Interpretation Comme criss RHEUMATOID FACTOR, QUANT (te st code = 3502) <10 IU/ML Jose ArnoldANA (ANTI-NUCLEAR AB) WITH REFLEX [id number] 00:00:00* Test Item Value Reference Range Interpretation Comme criss ANTI-NUCLEAR ANTIBODIES (nicolle t code = 3506) NEGATIVE Jose ArnoldCCP [id number] 00:00:00* Test Item Value Reference Range Interpretation Comme criss CCP IgG (test code = 97144) <0.5 U/ML Jose ArnoldCBC W/AUTO [id number] 00:00:00* Test Item Value Reference Range Interpretation Comme criss WBC (test code = 1001) 5.1 K/UL [...] (test code = 1015) 192 K/UL Jose [id number] 00:00:00* Test Item Value Reference Range Interpretation Comme criss TSH, THIRD GENERATION (test code = 2821) 2.790 UIU/ML Jose ArnoldCOMPREHENSIVE METABOLIC [id number] 00:00:00* Test Item Value Reference Range Interpretation Comme nts GLUCOSE (test code = 2217) 113 MG/DL BUN (test code = 2208) 12 MG/DL CREATININE (test code = 2214) 0.64 MG/DL eGFR AMER. (test cod e = 77764) 117 ML/MIN/1.73 eGFR NON- AMER. (test code = 07813) 101 ML/MIN/1.73 CALC BUN/CREAT (test code = [...] code = 2219) 29 U/L Jose ArnoldLIPID [id number] 00:00:00* Test Item Value Reference Range Interpretation Comme nts CHOLESTEROL (test code = 2210) 225 MG/DL TRIGLYCERIDES (test code = 2232) 196 MG/DL HDL CHOLESTEROL (test code = 2220) 50 MG/DL CALC LDL CHOL (test code = 2237) 141 MG/DL RISK RATIO LDL/HDL (test cod e = 2238) 2.82 RATIO Jose ArnoldRHEUMATOID FACTOR, [id number] 00:00:00* Test Item Value Reference Range Interpretation Comme criss RHEUMATOID FACTOR, QUANT (te st code = 3502) <10 IU/ML Jose ArnoldMANSOOR (ANTI-NUCLEAR AB) WITH REFLEX [id number] 00:00:00* Test Item Value Reference Range Interpretation Comme criss ANTI-NUCLEAR ANTIBODIES (nicolle t code = 3506) NEGATIVE Jose ArnoldCCP [id number] 00:00:00* Test Item Value Reference Range Interpretation Comme nts CCP IgG (test code = 92116) <0.5 U/ML Jose ArnoldCBC W/AUTO [id number] 00:00:00* Test Item Value Reference Range Interpretation [...] (test code = 1015) 192 K/UL Jose [id number] 00:00:00* Test Item Value Reference Range Interpretation Comme nts TSH, THIRD GENERATION (test code = 2821) 2.790 UIU/ML Jose ArnoldCOMPREHENSIVE METABOLIC [id number] 00:00:00* Test Item Value Reference Range Interpretation Comme nts GLUCOSE (test code = 2217) 113 MG/DL BUN (test code = 2208) 12 MG/DL CREATININE (test code = 2214) 0.64 MG/DL eGFR AMER. (test cod e = 95520) 117 ML/MIN/1.73 eGFR NON- AMER. (test code = 44693) 101 ML/MIN/1.73 CALC BUN/CREAT (test code = [...] code = 2219) 29 U/L Jose ArnoldLIPID [id number] 00:00:00* Test Item Value Reference Range Interpretation Comme nts CHOLESTEROL (test code = 2210) 225 MG/DL TRIGLYCERIDES (test code = 2232) 196 MG/DL HDL CHOLESTEROL (test code = 2220) 50 MG/DL CALC LDL CHOL (test code = 2237) 141 MG/DL RISK RATIO LDL/HDL (test cod e = 2238) 2.82 RATIO Jose ArnoldRHEUMATOID FACTOR, [id number] 00:00:00* Test Item Value Reference Range Interpretation Comme criss RHEUMATOID FACTOR, QUANT (te st code = 3502) <10 IU/ML Jose ArnoldMANSOOR (ANTI-NUCLEAR AB) WITH REFLEX [id number] 00:00:00* Test Item Value Reference Range Interpretation Comme criss ANTI-NUCLEAR ANTIBODIES (nicolle t code = 3506) NEGATIVE Jose ArnoldCCP [id number] 00:00:00* Test Item Value Reference Range Interpretation Comme criss CCP IgG (test code = 63430) <0.5 U/ML Jose ArnoldCBC W/AUTO [id number] 00:00:00* Test Item Value Reference Range Interpretation [...] (test code = 1015) 192 K/UL Jose [id number] 00:00:00* Test Item Value Reference Range Interpretation Comme nts TSH, THIRD GENERATION (test code = 2821) 2.790 UIU/ML Jose ArnoldCOMPREHENSIVE METABOLIC [id number] 00:00:00* Test Item Value Reference Range Interpretation Comme nts GLUCOSE (test code = 2217) 113 MG/DL BUN (test code = 2208) 12 MG/DL CREATININE (test code = 2214) 0.64 MG/DL eGFR AMER. (test cod e = 75767) 117 ML/MIN/1.73 eGFR NON- AMER. (test code = 50122) 101 ML/MIN/1.73 CALC BUN/CREAT (test code = [...] code = 2219) 29 U/L Jose ArnoldLIPID [id number] 00:00:00* Test Item Value Reference Range Interpretation Comme nts CHOLESTEROL (test code = 2210) 225 MG/DL TRIGLYCERIDES (test code = 2232) 196 MG/DL HDL CHOLESTEROL (test code = 2220) 50 MG/DL CALC LDL CHOL (test code = 2237) 141 MG/DL RISK RATIO LDL/HDL (test cod e = 2238) 2.82 RATIO Jose ArnoldRHEUMATOID FACTOR, [id number] 00:00:00* Test Item Value Reference Range Interpretation Comme criss RHEUMATOID FACTOR, QUANT (te st code = 3502) <10 IU/ML Jose Louise (ANTI-NUCLEAR AB) WITH REFLEX [id number] 00:00:00* Test Item Value Reference Range Interpretation Comme criss ANTI-NUCLEAR ANTIBODIES (nicolle t code = 3506) NEGATIVE Jose ArnoldCCP [id number] 00:00:00* Test Item Value Reference Range Interpretation Comme criss CCP IgG (test code = 14754) <0.5 U/ML Jose ArnoldCBC W/AUTO [id number] 00:00:00* Test Item Value Reference Range Interpretation [...] (test code = 1015) 192 K/UL Jose [id number] 00:00:00* Test Item Value Reference Range Interpretation Comme criss TSH, THIRD GENERATION (test code = 2821) 2.790 UIU/ML Jose ArnoldCOMPREHENSIVE METABOLIC [id number] 00:00:00* Test Item Value Reference Range Interpretation Comme nts GLUCOSE (test code = 2217) 113 MG/DL BUN (test code = 2208) 12 MG/DL CREATININE (test code = 2214) 0.64 MG/DL eGFR AMER. (test cod e = 39604) 117 ML/MIN/1.73 eGFR NON- AMER. (test code = 62487) 101 ML/MIN/1.73 CALC BUN/CREAT (test code = [...] code = 2219) 29 U/L Jose ArnoldLIPID [id number] 00:00:00* Test Item Value Reference Range Interpretation Comme nts CHOLESTEROL (test code = 2210) 225 MG/DL TRIGLYCERIDES (test code = 2232) 196 MG/DL HDL CHOLESTEROL (test code = 2220) 50 MG/DL CALC LDL CHOL (test code = 2237) 141 MG/DL RISK RATIO LDL/HDL (test cod e = 2238) 2.82 RATIO Jose Wilson ClaytonRHEUMATOID FACTOR, [id number] 00:00:00* Test Item Value Reference Range Interpretation Comme nts RHEUMATOID FACTOR, QUANT (te st code = 3502) <10 IU/ML Jose Wilson ClaytonANA (ANTI-NUCLEAR AB) WITH REFLEX [id number] 00:00:00* Test Item Value Reference Range Interpretation Comme nts ANTI-NUCLEAR ANTIBODIES (nicolle t code = 3506) NEGATIVE Jose Wilson ClaytonCCP [id number] 00:00:00* Test Item Value Reference Range Interpretation Comme nts CCP IgG (test code = 38803) <0.5 U/ML Jose Wilson ClaytonCBC W/AUTO [id number] 00:00:00* Test Item Value Reference Range Interpretation [...] (test code = 1015) 192 K/UL Jose [id number] 00:00:00* Test Item Value Reference Range Interpretation Comme nts TSH, THIRD GENERATION (test code = 2821) 2.790 UIU/ML Jose ArnoldCOMPREHENSIVE METABOLIC [id number] 00:00:00* Test Item Value Reference Range Interpretation Comme nts GLUCOSE (test code = 2217) 113 MG/DL BUN (test code = 2208) 12 MG/DL CREATININE (test code = 2214) 0.64 MG/DL eGFR AMER. (test cod e = 95993) 117 ML/MIN/1.73 eGFR NON- AMER. (test code = 50277) 101 ML/MIN/1.73 CALC BUN/CREAT (test code = [...] (test code = 2219) 29 U/L Jose ArnoldCULTURE, [id number] 00:00:00* Test Item Value Reference Range Interpretation Comme nts CULTURE, THROAT (test code = 63510) SPECIMEN NUMBER: [id number] Jose AugustLTANSON [id number] 00:00:00* Test Item Value Reference Range Interpretation Comme nts CULTURE, THROAT (test code = 41441) SPECIMEN NUMBER: [id number] Jose Altamirano [id number] 00:00:00* Test Item Value Reference Range Interpretation Comme nts CULTURE, THROAT (test code = 45958) SPECIMEN NUMBER: [id number] Jose AugustLTANSON [id number] 00:00:00* Test Item Value Reference Range Interpretation Comme nts CULTURE, THROAT (test code = 62586) SPECIMEN NUMBER: [id number] Jose AugustLTANSON [id number] 00:00:00* Test Item Value Reference Range Interpretation Comme nts CULTURE, THROAT (test code = 80941) SPECIMEN NUMBER: [id number] Joes Altamirano [id number] 00:00:00* Test Item Value Reference Range Interpretation Comme nts CULTURE, THROAT (test code = 39134) SPECIMEN NUMBER: [id number] Jose AugustLTANSON [id number] 00:00:00* Test Item Value Reference Range Interpretation Comme nts CULTURE, THROAT (test code = 71542) SPECIMEN NUMBER: [id number] Jose Altamirano [id number] 00:00:00* Test Item Value Reference Range Interpretation Comme nts CULTURE, THROAT (test code = 46057) SPECIMEN NUMBER: [id number] Jose ArnoldSARS-CoV-2 (COVID-19) by RT-PCR (HIGH RISK)2019-12-29 00:00:00* Test Item Value Reference Range Interpretation Comme nts SARS-CoV-2 INTERPRETATION (t est code = 06633) NEGATIVE SOURCE (test code = 43217) NOT SPECIFIED Jose ArnoldSARS-CoV-2 (COVID-19) by RT-PCR (HIGH RISK)2019-12-29 00:00:00* Test Item Value Reference Range Interpretation Comme nts SARS-CoV-2 INTERPRETATION (t est code = 80778) NEGATIVE SOURCE (test code = 37206) NOT SPECIFIED Jose Wilson EhvsrmJTPW-SyJ-2 (COVID-19) by RT-PCR (HIGH RISK)2019-12-29 00:00:00* Test Item Value Reference Range Interpretation Comme nts SARS-CoV-2 INTERPRETATION (t est code = 75167) NEGATIVE SOURCE (test code = 66477) NOT SPECIFIED Jose F OqwfymFPFU-UsO-2 (COVID-19) by RT-PCR (HIGH RISK)2019-12-29 00:00:00* Test Item Value Reference Range Interpretation Comme nts SARS-CoV-2 INTERPRETATION (t est code = 09623) NEGATIVE SOURCE (test code = 66764) NOT SPECIFIED Jose F XysjinJVWT-ByU-0 (COVID-19) by RT-PCR (HIGH RISK)2019-12-29 00:00:00* Test Item Value Reference Range Interpretation Comme nts SARS-CoV-2 INTERPRETATION (t est code = 25850) NEGATIVE SOURCE (test code = 91218) NOT SPECIFIED Jose F XlvqleAWVO-SzF-1 (COVID-19) by RT-PCR (HIGH RISK)2019-12-29 00:00:00* Test Item Value Reference Range Interpretation Comme nts SARS-CoV-2 INTERPRETATION (t est code = 41987) NEGATIVE SOURCE (test code = 26401) NOT SPECIFIED Jose F CmdtlaNGKK-SnR-3 (COVID-19) by RT-PCR (HIGH RISK)2019-12-29 00:00:00* Test Item Value Reference Range Interpretation Comme nts SARS-CoV-2 INTERPRETATION (t est code = 44650) NEGATIVE SOURCE (test code = 05134) NOT SPECIFIED Jose F PxrssmAGDF-HwU-9 (COVID-19) by RT-PCR (HIGH RISK)2019-12-29 00:00:00* Test Item Value Reference Range Interpretation Comme nts SARS-CoV-2 INTERPRETATION (t est code = 40541) NEGATIVE SOURCE (test code = 84472) NOT SPECIFIED Jose F XsfpjrSAGP-TwO-9 (COVID-19) by RT-PCR (HIGH RISK)2019-12-07 00:00:00* Test Item Value Reference Range Interpretation Comme nts SARS-CoV-2 INTERPRETATION (t est code = 69184) NEGATIVE SOURCE (test code = 72970) NOT SPECIFIED Jose F GcwtvoPCQW-GrV-7 (COVID-19) by RT-PCR (HIGH RISK)2019-12-07 00:00:00* Test Item Value Reference Range Interpretation Comme nts SARS-CoV-2 INTERPRETATION (t est code = 42066) NEGATIVE SOURCE (test code = 55679) NOT SPECIFIED Jose Wilson IbuxlmKOHE-YxG-2 (COVID-19) by RT-PCR (HIGH RISK)2019-12-07 00:00:00* Test Item Value Reference Range Interpretation Comme nts SARS-CoV-2 INTERPRETATION (t est code = 01250) NEGATIVE SOURCE (test code = 08418) NOT SPECIFIED Jose Wilson YsevmsEPFK-HbM-3 (COVID-19) by RT-PCR (HIGH RISK)2019-12-07 00:00:00* Test Item Value Reference Range Interpretation Comme nts SARS-CoV-2 INTERPRETATION (t est code = 26792) NEGATIVE SOURCE (test code = 90153) NOT SPECIFIED Jose Wilson RqrixtVXUS-RlI-5 (COVID-19) by RT-PCR (HIGH RISK)2019-12-07 00:00:00* Test Item Value Reference Range Interpretation Comme nts SARS-CoV-2 INTERPRETATION (t est code = 51266) NEGATIVE SOURCE (test code = 24448) NOT SPECIFIED Jose Wilson NrbrcuJOUW-IvO-7 (COVID-19) by RT-PCR (HIGH RISK)2019-12-07 00:00:00* Test Item Value Reference Range Interpretation Comme nts SARS-CoV-2 INTERPRETATION (t est code = 46101) NEGATIVE SOURCE (test code = 10733) NOT SPECIFIED Jose Wilson GlfxpcVIEQ-BnQ-5 (COVID-19) by RT-PCR (HIGH RISK)2019-12-07 00:00:00* Test Item Value Reference Range Interpretation Comme nts SARS-CoV-2 INTERPRETATION (t est code = 40923) NEGATIVE SOURCE (test code = 06045) NOT SPECIFIED Jose Wilson BqzzxoUWIT-FvU-4 (COVID-19) by RT-PCR (HIGH RISK)2019-12-07 00:00:00* Test Item Value Reference Range Interpretation Comme nts SARS-CoV-2 INTERPRETATION (t est code = 00356) NEGATIVE SOURCE (test code = 25878) NOT SPECIFIED Jose Wilson VyygbnPRSD-TSA-2(COVID19),HIGHRISK,RT-PCR [ADDED]2019-09-12 00:00:00* Test Item Value Reference Range Interpretation Comme nts SARS-CoV-2 INTERPRETATION (test code = 38359) NEGATIVE SOURCE (test code = 84708) NASOPHARYNGEAL Jose F XggkquBUNO-QYV-4(COVID19),HIGHRISK,RT-PCR [ADDED]2019-09-12 00:00:00* Test Item Value Reference Range Interpretation Comme nts SARS-CoV-2 INTERPRETATION (test code = 44205) NEGATIVE SOURCE (test code = 96971) NASOPHARYNGEAL Jose F VnklxmQZLL-ZOG-7(COVID19),HIGHRISK,RT-PCR [ADDED]2019-09-12 00:00:00* Test Item Value Reference Range Interpretation Comme nts SARS-CoV-2 INTERPRETATION (test code = 94936) NEGATIVE SOURCE (test code = 14680) NASOPHARYNGEAL Jose F DnadjgVCYN-RZJ-7(COVID19),HIGHRISK,RT-PCR [ADDED]2019-09-12 00:00:00* Test Item Value Reference Range Interpretation Comme nts SARS-CoV-2 INTERPRETATION (test code = 72665) NEGATIVE SOURCE (test code = 32630) NASOPHARYNGEAL Jose F AycxpgLFDR-NCA-0(COVID19),HIGHRISK,RT-PCR [ADDED]2019-09-12 00:00:00* Test Item Value Reference Range Interpretation Comme nts SARS-CoV-2 INTERPRETATION (test code = 78682) NEGATIVE SOURCE (test code = 75336) NASOPHARYNGEAL Jose F LnubauOKEA-AXM-2(COVID19),HIGHRISK,RT-PCR [ADDED]2019-09-12 00:00:00* Test Item Value Reference Range Interpretation Comme nts SARS-CoV-2 INTERPRETATION (test code = 93195) NEGATIVE SOURCE (test code = 51556) NASOPHARYNGEAL Jose F GydhuyKUEZ-MWR-7(COVID19),HIGHRISK,RT-PCR [ADDED]2019-09-12 00:00:00* Test Item Value Reference Range Interpretation Comme nts SARS-CoV-2 INTERPRETATION (test code = 04761) NEGATIVE SOURCE (test code = 35164) NASOPHARYNGEAL Jose F RbkroxBYAB-WMW-5(COVID19),HIGHRISK,RT-PCR [ADDED]2019-09-12 00:00:00* Test Item Value Reference Range Interpretation Comme nts SARS-CoV-2 INTERPRETATION (test code = 37856) NEGATIVE SOURCE (test code = 03730) [facility] [id number] 00:00:00* Test Item Value Reference Range Interpretation [...] (test code = 1015) 225 K/UL Jose Wilson [facility] W/AUTO [id number] 00:00:00* Test Item Value Reference Range Interpretation [...] (test code = 1015) 225 K/UL Jose Wilson [facility] W/AUTO [id number] 00:00:00* Test Item Value Reference Range Interpretation [...] (test code = 1015) 225 K/UL Jose Wilson AustinCBC W/AUTO [id number] 00:00:00* Test Item Value Reference Range Interpretation [...] (test code = 1015) 225 K/UL Jose Wilson AustinCBC W/AUTO [id number] 00:00:00* Test Item Value Reference Range Interpretation [...] (test code = 1015) 225 K/UL Jose Wilson [facility] W/AUTO [id number] 00:00:00* Test Item Value Reference Range Interpretation [...] (test code = 1015) 225 K/UL Jose Wilson [facility]CBC W/AUTO [id number] 00:00:00* Test Item Value Reference Range Interpretation [...] (test code = 1015) 225 K/UL Jose Wilson [place]CBC W[place]AUTO [id number] 00:00:00* Test Item Value Reference Range Interpretation [...] (test code = 1015) 225 K/UL Jose ArnoldCOMPREHENSIVE METABOLIC [id number] 00:00:00* Test Item Value Reference Range Interpretation Comme nts GLUCOSE (test code = 2217) 81 MG/DL BUN (test code = 2208) 12 MG/DL CREATININE (test code = 2214) 0.49 MG/DL eGFR AMER. (test cod e = 91715) 131 ML/MIN/1.73 eGFR NON- AMER. (test code = 42180) 113 ML/MIN/1.73 CALC BUN/CREAT (test code = [...] (test code = 2219) 26 U/L Jose ArnoldVvbvmrTGNVPYC0253-92-20 00:00:00* Test Item Value Reference Range Interpretation Comme nts AMYLASE (test code = 2205) 78 U/L Jose Wilson [id number] 00:00:00* Test Item Value Reference Range Interpretation Comme nts LIPASE (test code = 2058) 39 U/L Jose ArnoldCBC W/AUTO [id number] 00:00:00* Test Item Value Reference Range Interpretation [...] = 1015) 218 K/UL Jose ArnoldCOMPREHENSIVE METABOLIC [id number] 00:00:00* Test Item Value Reference Range Interpretation Comme nts GLUCOSE (test code = 2217) 81 MG/DL BUN (test code = 2208) 12 MG/DL CREATININE (test code = 2214) 0.49 MG/DL eGFR AMER. (test cod e = 28765) 131 ML/MIN/1.73 eGFR NON- AMER. (test code = 66102) 113 ML/MIN/1.73 CALC BUN/CREAT (test code = [...] (test code = 2219) 26 U/L Jose Wilson [id number] 00:00:00* Test Item Value Reference Range Interpretation Comme nts AMYLASE (test code = 2205) 78 U/L Joes Wilson [id number] 00:00:00* Test Item Value Reference Range Interpretation Comme nts LIPASE (test code = 2058) 39 U/L Jose ArnoldCBC W/AUTO [id number] 00:00:00* Test Item Value Reference Range Interpretation [...] = 1015) 218 K/UL Jose ArnoldCOMPREHENSIVE METABOLIC [id number] 00:00:00* Test Item Value Reference Range Interpretation Comme nts GLUCOSE (test code = 2217) 81 MG/DL BUN (test code = 2208) 12 MG/DL CREATININE (test code = 2214) 0.49 MG/DL eGFR AMER. (test cod e = 44073) 131 ML/MIN/1.73 eGFR NON- AMER. (test code = 33777) 113 ML/MIN/1.73 CALC BUN/CREAT (test code = [...] 0.4 MG/DL ALKALINE PHOSPHATASE (test code = 2203) 92 U/L AST (test code = 221) 20 U/L ALT (test code = 221) 26 U/L Jose ArnoldZwldqxAAZLYTO6445-04-43 00:00:00* Test Item Value Reference Range Interpretation Comme nts AMYLASE (test code = 5) 78 U/L Jose Wilson [id number] 00:00:00* Test Item Value Reference Range Interpretation Comme nts LIPASE (test code = 2057) 39 U/L Jose ArnoldCBC W/AUTO [id number] 00:00:00* Test Item Value Reference Range Interpretation [...] = 1015) 218 K/UL Jose ArnoldCOMPREHENSIVE METABOLIC [id number] 00:00:00* Test Item Value Reference Range Interpretation Comme nts GLUCOSE (test code = 2217) 81 MG/DL BUN (test code = 2208) 12 MG/DL CREATININE (test code = 2214) 0.49 MG/DL eGFR AMER. (test cod e = ) 131 ML/MIN/1.73 eGFR NON- AMER. (test code = 43706) 113 ML/MIN/1.73 CALC BUN/CREAT (test code = 2235) 24 RATIO SODIUM (test code = 2231) 140 MEQ/L POTASSIUM (test code = 2228) 4.2 MEQ/L CHLORIDE (test code = 2215) 100 MEQ/L CARBON DIOXIDE (test code = 2206) 26 MEQ/L CALCIUM (test code = 2209) 9.5 MG/DL PROTEIN, TOTAL (test code = 222) 7.3 G/DL ALBUMIN (test code = 2201) 4.3 G/DL CALC GLOBULIN (test code = 2240) 3.0 G/DL CALC A/G RATIO (test code = 2234) 1.4 RATIO BILIRUBIN, TOTAL (test code = 7) 0.4 MG/DL ALKALINE PHOSPHATASE (test code = 2203) 92 U/L AST (test code = 2218) 20 U/L ALT (test code = 2219) 26 U/L Jose [id number] 00:00:00* Test Item Value Reference Range Interpretation Comme [facility] AMYLASE (test code = 5) 78 U/L Jose [id number] 00:00:00* Test Item Value Reference Range Interpretation Comme nts LIPASE (test code = 2057) 39 U/L [place]AUTO [id number] 00:00:00* Test Item Value Reference Range Interpretation [...] = 1015) 218 K/UL Jose ArnoldCOMPREHENSIVE METABOLIC [id number] 00:00:00* Test Item Value Reference Range Interpretation Comme nts GLUCOSE (test code = 2217) 81 MG/DL BUN (test code = 2208) 12 MG/DL CREATININE (test code = 2214) 0.49 MG/DL eGFR AMER. (test cod e = 58242) 131 ML/MIN/1.73 eGFR NON- AMER. (test code = 88767) 113 ML/MIN/1.73 CALC BUN/CREAT (test code = [...] (test code = 2219) 26 U/L Jose [id number] 00:00:00* Test Item Value Reference Range Interpretation Comme nts AMYLASE (test code = 2205) 78 U/L Jose [id number] 00:00:00* Test Item Value Reference Range Interpretation Comme nts LIPASE (test code = 2058) 39 U/L Jose ArnoldCBC W/AUTO [id number] 00:00:00* Test Item Value Reference Range Interpretation [...] = 1015) 218 K/UL Jose ArnoldCOMPREHENSIVE METABOLIC [id number] 00:00:00* Test Item Value Reference Range Interpretation Comme nts GLUCOSE (test code = 2217) 81 MG/DL BUN (test code = 2208) 12 MG/DL CREATININE (test code = 2214) 0.49 MG/DL eGFR AMER. (test cod e = 55324) 131 ML/MIN/1.73 eGFR NON- AMER. (test code = 14099) 113 ML/MIN/1.73 CALC BUN/CREAT (test code = [...] (test code = 2219) 26 U/L Jose Wilson [id number] 00:00:00* Test Item Value Reference Range Interpretation Comme nts AMYLASE (test code = 2205) 78 U/L Jose Wilson [id number] 00:00:00* Test Item Value Reference Range Interpretation Comme nts LIPASE (test code = 2058) 39 U/L Jose ArnoldCBC W/AUTO [id number] 00:00:00* Test Item Value Reference Range Interpretation [...] (test code = 1015) 218 K/UL Jose Wilson ClaytonCOMPREHENSIVE METABOLIC [id number] 00:00:00* Test Item Value Reference Range Interpretation Comme nts GLUCOSE (test code = 2217) 81 MG/DL BUN (test code = 2208) 12 MG/DL CREATININE (test code = 2214) 0.49 MG/DL eGFR AMER. (test cod e = 09497) 131 ML/MIN/1.73 eGFR NON- AMER. (test code = 54972) 113 ML/MIN/1.73 CALC BUN/CREAT (test code = [...] (test code = 2219) 26 U/L Jose Wilson [id number] 00:00:00* Test Item Value Reference Range Interpretation Comme nts AMYLASE (test code = 2205) 78 U/L Jose [id number] 00:00:00* Test Item Value Reference Range Interpretation Comme nts LIPASE (test code = 2058) 39 U/L Jose ArnoldCBC W/AUTO [id number] 00:00:00* Test Item Value Reference Range Interpretation [...] = 1015) 218 K/UL Jose ArnoldCOMPREHENSIVE METABOLIC [id number] 00:00:00* Test Item Value Reference Range Interpretation Comme nts GLUCOSE (test code = 2217) 81 MG/DL BUN (test code = 2208) 12 MG/DL CREATININE (test code = 2214) 0.49 MG/DL eGFR AMER. (test cod e = 21990) 131 ML/MIN/1.73 eGFR NON- AMER. (test code = 45031) 113 ML/MIN/1.73 CALC BUN/CREAT (test code = [...] (test code = 2219) 26 U/L Jose Wilson [id number] 00:00:00* Test Item Value Reference Range Interpretation Comme nts AMYLASE (test code = 5) 78 U/L Jose Wilson [id number] 00:00:00* Test Item Value Reference Range Interpretation Comme nts LIPASE (test code = 2057) 39 U/L Jose Wilson AustinCBC W/AUTO [id number] 00:00:00* Test Item Value Reference Range Interpretation [...] (test code = 1015) 218 K/UL Jose Wilson AustinCBC W/AUTO [id number] 00:00:00* Test Item Value Reference Range Interpretation [...] COUNT (test code = 1015) 229 K/UL oJse Wilson ClaytonCOMPREHENSIVE METABOLIC [id number] 00:00:00* Test Item Value Reference Range Interpretation Comme nts GLUCOSE (test code = 2217) 91 MG/DL BUN (test code = 2208) 9 MG/DL CREATININE (test code = 2214) 0.52 MG/DL eGFR AMER. (test cod e = 54607) 129 ML/MIN/1.73 eGFR NON- AMER. (test code = 45045) 111 ML/MIN/1.73 CALC BUN/CREAT (test code = [...] = 2219) 21 U/L Jose Wilson AustinLIPID [id number] 00:00:00* Test Item Value Reference Range Interpretation [...] code = 2821) 2.46 UIU/ML Jose ArnoldHEMOGLOBIN [id number] 00:00:00* Test Item Value Reference Range Interpretation Comme nts HEMOGLOBIN A1c (test code = 42048) 5.4 % Jose ArnoldCBC W/AUTO [id number] 00:00:00* Test Item Value Reference Range Interpretation [...] = 1015) 229 K/UL Jose ArnoldCOMPREHENSIVE METABOLIC [id number] 00:00:00* Test Item Value Reference Range Interpretation Comme nts GLUCOSE (test code = 2217) 91 MG/DL BUN (test code = 2208) 9 MG/DL CREATININE (test code = 2214) 0.52 MG/DL eGFR AMER. (test cod e = 86258) 129 ML/MIN/1.73 eGFR NON- AMER. (test code = 66179) 111 ML/MIN/1.73 CALC BUN/CREAT (test code = [...] (test code = 2219) 21 U/L Jose ArnoldLIPID [id number] 00:00:00* Test Item Value Reference Range Interpretation Comme nts CHOLESTEROL (test code = 2210) 219 MG/DL TRIGLYCERIDES (test code = 2232) 151 MG/DL HDL CHOLESTEROL (test code = 2220) 55 MG/DL CALC LDL CHOL (test code = 2237) 134 MG/DL RISK RATIO LDL/HDL (test cod e = 2238) 2.43 RATIO Jose Wilson ClaytonTHYROID II PROFILE (T3U, T4, T7, TSH)2016-08-26 00:00:00* Test Item Value Reference Range Interpretation Comme nts T3 UPTAKE (test code = 2817) 30.0 % T4 (THYROXINE) (test code = 2819) 5.5 UG/DL CALCULATED T7 (FTI) (test co de = 2820) 1.65 TSH (test code = 2821) 2.46 UIU/ML Jose Wilson ClaytonHEMOGLOBIN [id number] 00:00:00* Test Item Value Reference Range Interpretation Comme [facility] HEMOGLOBIN A1c (test code = 66980) 5.4 % Jose Wilson ClaytonCBC W/AUTO [id number] 00:00:00* Test Item Value Reference Range Interpretation [...] (test code = 1015) 229 K/UL Jose Wilson ClaytonCOMPREHENSIVE METABOLIC [id number] 00:00:00* Test Item Value Reference Range Interpretation Comme nts GLUCOSE (test code = 2217) 91 MG/DL BUN (test code = 2208) 9 MG/DL CREATININE (test code = 2214) 0.52 MG/DL eGFR AMER. (test cod e = 61082) 129 ML/MIN/1.73 eGFR NON- AMER. (test code = 08296) 111 ML/MIN/1.73 CALC BUN/CREAT (test code = [...] = 2219) 21 U/L Jose Wilson AustinLIPID [id number] 00:00:00* Test Item Value Reference Range Interpretation [...] code = 2821) 2.46 UIU/ML Jose ArnoldHEMOGLOBIN [id number] 00:00:00* Test Item Value Reference Range Interpretation Comme nts HEMOGLOBIN A1c (test code = 98873) 5.4 % Jose ArnoldCBC W/AUTO [id number] 00:00:00* Test Item Value Reference Range Interpretation [...] = 1015) 229 K/UL Jose ArnoldCOMPREHENSIVE METABOLIC [id number] 00:00:00* Test Item Value Reference Range Interpretation Comme nts GLUCOSE (test code = 2217) 91 MG/DL BUN (test code = 2208) 9 MG/DL CREATININE (test code = 2214) 0.52 MG/DL eGFR AMER. (test cod e = 90386) 129 ML/MIN/1.73 eGFR NON- AMER. (test code = 30137) 111 ML/MIN/1.73 CALC BUN/CREAT (test code = [...] (test code = 2219) 21 U/L Jose ArnoldLIPID [id number] 00:00:00* Test Item Value Reference Range Interpretation Comme nts CHOLESTEROL (test code = 2210) 219 MG/DL TRIGLYCERIDES (test code = 2232) 151 MG/DL HDL CHOLESTEROL (test code = 2220) 55 MG/DL CALC LDL CHOL (test code = 2237) 134 MG/DL RISK RATIO LDL/HDL (test cod e = 2238) 2.43 RATIO Jose Wilson ClaytonTHYROID II PROFILE (T3U, T4, T7, TSH)2016-08-26 00:00:00* Test Item Value Reference Range Interpretation Comme nts T3 UPTAKE (test code = 2817) 30.0 % T4 (THYROXINE) (test code = 2819) 5.5 UG/DL CALCULATED T7 (FTI) (test co de = 2820) 1.65 TSH (test code = 2821) 2.46 UIU/ML Jose Wilson ClaytonHEMOGLOBIN [id number] 00:00:00* Test Item Value Reference Range Interpretation Comme [facility] HEMOGLOBIN A1c (test code = 82265) 5.4 % Jose Wilson ClaytonCBC W/AUTO [id number] 00:00:00* Test Item Value Reference Range Interpretation [...] (test code = 1015) 229 K/UL Jose Wilson ClaytonCOMPREHENSIVE METABOLIC [id number] 00:00:00* Test Item Value Reference Range Interpretation Comme nts GLUCOSE (test code = 2217) 91 MG/DL BUN (test code = 2208) 9 MG/DL CREATININE (test code = 2214) 0.52 MG/DL eGFR AMER. (test cod e = 67933) 129 ML/MIN/1.73 eGFR NON- AMER. (test code = 75821) 111 ML/MIN/1.73 CALC BUN/CREAT (test code = [...] = 2219) 21 U/L Jose Wilson AustinLIPID [id number] 00:00:00* Test Item Value Reference Range Interpretation [...] code = 2821) 2.46 UIU/ML Jose ArnoldHEMOGLOBIN [id number] 00:00:00* Test Item Value Reference Range Interpretation Comme nts HEMOGLOBIN A1c (test code = 53725) 5.4 % Jose ArnoldCBC W/AUTO [id number] 00:00:00* Test Item Value Reference Range Interpretation [...] = 1015) 229 K/UL Jose ArnoldCOMPREHENSIVE METABOLIC [id number] 00:00:00* Test Item Value Reference Range Interpretation Comme nts GLUCOSE (test code = 2217) 91 MG/DL BUN (test code = 2208) 9 MG/DL CREATININE (test code = 2214) 0.52 MG/DL eGFR AMER. (test cod e = 54007) 129 ML/MIN/1.73 eGFR NON- AMER. (test code = 08392) 111 ML/MIN/1.73 CALC BUN/CREAT (test code = [...] (test code = 2219) 21 U/L Jose ArnoldLIPID [id number] 00:00:00* Test Item Value Reference Range Interpretation Comme nts CHOLESTEROL (test code = 2210) 219 MG/DL TRIGLYCERIDES (test code = 2232) 151 MG/DL HDL CHOLESTEROL (test code = 2220) 55 MG/DL CALC LDL CHOL (test code = 2237) 134 MG/DL RISK RATIO LDL/HDL (test cod e = 2238) 2.43 RATIO Jose Wilson ClaytonTHYROID II PROFILE (T3U, T4, T7, TSH)2016-08-26 00:00:00* Test Item Value Reference Range Interpretation Comme nts T3 UPTAKE (test code = 2817) 30.0 % T4 (THYROXINE) (test code = 2819) 5.5 UG/DL CALCULATED T7 (FTI) (test co de = 2820) 1.65 TSH (test code = 2821) 2.46 UIU/ML Jose Wilson ClaytonHEMOGLOBIN [id number] 00:00:00* Test Item Value Reference Range Interpretation Comme [facility] HEMOGLOBIN A1c (test code = 75241) 5.4 % Jose Wilson ClaytonCBC W/AUTO [id number] 00:00:00* Test Item Value Reference Range Interpretation [...] (test code = 1015) 229 K/UL Jose Wilson ClaytonCOMPREHENSIVE METABOLIC [id number] 00:00:00* Test Item Value Reference Range Interpretation Comme nts GLUCOSE (test code = 2217) 91 MG/DL BUN (test code = 2208) 9 MG/DL CREATININE (test code = 2214) 0.52 MG/DL eGFR AMER. (test cod e = 47604) 129 ML/MIN/1.73 eGFR NON- AMER. (test code = 64419) 111 ML/MIN/1.73 CALC BUN/CREAT (test code = [...] = 2219) 21 U/L Jose Wilson AustinLIPID [id number] 00:00:00* Test Item Value Reference Range Interpretation [...] code = 2821) 2.46 UIU/ML Jose ArnoldHEMOGLOBIN [id number] 00:00:00* Test Item Value Reference Range Interpretation Comme nts HEMOGLOBIN A1c (test code = 93038) 5.4 % Jose ArnoldCBC W/AUTO [id number] 00:00:00* Test Item Value Reference Range Interpretation [...] = 1015) 229 K/UL Jose ArnoldCOMPREHENSIVE METABOLIC [id number] 00:00:00* Test Item Value Reference Range Interpretation Comme nts GLUCOSE (test code = 2217) 91 MG/DL BUN (test code = 2208) 9 MG/DL CREATININE (test code = 2214) 0.52 MG/DL eGFR AMER. (test cod e = 87536) 129 ML/MIN/1.73 eGFR NON- AMER. (test code = 69428) 111 ML/MIN/1.73 CALC BUN/CREAT (test code = [...] (test code = 2219) 21 U/L Jose ArnoldLIPID [id number] 00:00:00* Test Item Value Reference Range Interpretation [...] code = 2821) 2.46 UIU/ML Jose ArnoldHEMOGLOBIN [id number] 00:00:00* Test Item Value Reference Range Interpretation Comme nts HEMOGLOBIN A1c (test code = 63506) 5.4 % Jose Wilson ClaytonCOMPREHENSIVE METABOLIC [id number] 00:00:00* Test Item Value Reference Range Interpretation Comme nts GLUCOSE (test code = 2217) 87 MG/DL BUN (test code = 2208) 11 MG/DL CREATININE (test code = 2214) 0.58 MG/DL eGFR AMER. (test cod e = 10766) 125 ML/MIN/1.73 eGFR NON- AMER. (test code = 57654) 107 ML/MIN/1.73 CALCULATED BUN/CREAT (test code = [...] (test code = 2219) 18 U/L Jose Wilson [place] FranciscoLIPID [id number] 00:00:00* Test Item Value Reference Range Interpretation Comme nts CHOLESTEROL (test code = 2210) 210 MG/DL TRIGLYCERIDES (test code = 2232) 121 MG/DL HDL CHOLESTEROL (test code = 2220) 50 MG/DL CALCULATED LDL CHOL (test co de = 2237) 136 MG/DL RISK RATIO LDL/HDL (test cod e = 2238) 2.72 RATIO Jose ArnoldCOMPREHENSIVE METABOLIC [id number] 00:00:00* Test Item Value Reference Range Interpretation Comme nts GLUCOSE (test code = 2217) 87 MG/DL BUN (test code = 2208) 11 MG/DL CREATININE (test code = 2214) 0.58 MG/DL eGFR AMER. (test cod e = 25949) 125 ML/MIN/1.73 eGFR NON- AMER. (test code = 12793) 107 ML/MIN/1.73 CALCULATED BUN/CREAT (test code = [...] code = 2219) 18 U/L Jose ArnoldLIPID [id number] 00:00:00* Test Item Value Reference Range Interpretation Comme nts CHOLESTEROL (test code = 2210) 210 MG/DL TRIGLYCERIDES (test code = 2232) 121 MG/DL HDL CHOLESTEROL (test code = 2220) 50 MG/DL CALCULATED LDL CHOL (test co de = 2237) 136 MG/DL RISK RATIO LDL/HDL (test cod e = 2238) 2.72 RATIO Jose ArnoldCOMPREHENSIVE METABOLIC [id number] 00:00:00* Test Item Value Reference Range Interpretation Comme nts GLUCOSE (test code = 2217) 87 MG/DL BUN (test code = 2208) 11 MG/DL CREATININE (test code = 2214) 0.58 MG/DL eGFR AMER. (test cod e = 48075) 125 ML/MIN/1.73 eGFR NON- AMER. (test code = 37011) 107 ML/MIN/1.73 CALCULATED BUN/CREAT (test code = [...] code = 2219) 18 U/L Jose ArnoldLIPID [id number] 00:00:00* Test Item Value Reference Range Interpretation Comme nts CHOLESTEROL (test code = 2210) 210 MG/DL TRIGLYCERIDES (test code = 2232) 121 MG/DL HDL CHOLESTEROL (test code = 2220) 50 MG/DL CALCULATED LDL CHOL (test co de = 2237) 136 MG/DL RISK RATIO LDL/HDL (test cod e = 2238) 2.72 RATIO Jose ArnoldCOMPREHENSIVE METABOLIC [id number] 00:00:00* Test Item Value Reference Range Interpretation Comme nts GLUCOSE (test code = 2217) 87 MG/DL BUN (test code = 2208) 11 MG/DL CREATININE (test code = 2214) 0.58 MG/DL eGFR AMER. (test cod e = 51753) 125 ML/MIN/1.73 eGFR NON- AMER. (test code = 47625) 107 ML/MIN/1.73 CALCULATED BUN/CREAT (test code = [...] (test code = 2219) 18 U/L Jose Wilson AustinLIPID [id number] 00:00:00* Test Item Value Reference Range Interpretation Comme nts CHOLESTEROL (test code = 2210) 210 MG/DL TRIGLYCERIDES (test code = 2232) 121 MG/DL HDL CHOLESTEROL (test code = 2220) 50 MG/DL CALCULATED LDL CHOL (test co de = 2237) 136 MG/DL RISK RATIO LDL/HDL (test cod e = 2238) 2.72 RATIO Jose ArnoldCOMPREHENSIVE METABOLIC [id number] 00:00:00* Test Item Value Reference Range Interpretation Comme nts GLUCOSE (test code = 2217) 87 MG/DL BUN (test code = 2208) 11 MG/DL CREATININE (test code = 2214) 0.58 MG/DL eGFR AMER. (test cod e = 54507) 125 ML/MIN/1.73 eGFR NON- AMER. (test code = 55219) 107 ML/MIN/1.73 CALCULATED BUN/CREAT (test code = [...] (test code = 2219) 18 U/L Jose Wilson AustinLIPID [id number] 00:00:00* Test Item Value Reference Range Interpretation Comme nts CHOLESTEROL (test code = 2210) 210 MG/DL TRIGLYCERIDES (test code = 2232) 121 MG/DL HDL CHOLESTEROL (test code = 2220) 50 MG/DL CALCULATED LDL CHOL (test co de = 2237) 136 MG/DL RISK RATIO LDL/HDL (test cod e = 2238) 2.72 RATIO Jose Wilson AustinCOMPREHENSIVE METABOLIC [id number] 00:00:00* Test Item Value Reference Range Interpretation Comme nts GLUCOSE (test code = 2217) 87 MG/DL BUN (test code = 2208) 11 MG/DL CREATININE (test code = 2214) 0.58 MG/DL eGFR AMER. (test cod e = 87303) 125 ML/MIN/1.73 eGFR NON- AMER. (test code = 64322) 107 ML/MIN/1.73 CALCULATED BUN/CREAT (test code = [...] (test code = 2219) 18 U/L Jose Steve AustinLIPID [id number] 00:00:00* Test Item Value Reference Range Interpretation Comme nts CHOLESTEROL (test code = 2210) 210 MG/DL TRIGLYCERIDES (test code = 2232) 121 MG/DL HDL CHOLESTEROL (test code = 2220) 50 MG/DL CALCULATED LDL CHOL (test co de = 2237) 136 MG/DL RISK RATIO LDL/HDL (test cod e = 2238) 2.72 RATIO Jose Wilson ClaytonCOMPREHENSIVE METABOLIC [id number] 00:00:00* Test Item Value Reference Range Interpretation Comme nts GLUCOSE (test code = 2217) 87 MG/DL BUN (test code = 2208) 11 MG/DL CREATININE (test code = 2214) 0.58 MG/DL eGFR AMER. (test cod e = 14654) 125 ML/MIN/1.73 eGFR NON- AMER. (test code = 13461) 107 ML/MIN/1.73 CALCULATED BUN/CREAT (test code = [...] 70 U/L SGOT (AST) (test code = 221) 16 U/L SGPT (ALT) (test code = 2219) 18 U/L Jose Wilson [place] FranciscoLIPID [id number] 00:00:00* Test Item Value Reference Range Interpretation Comme nts CHOLESTEROL (test code = 2210) 210 MG/DL TRIGLYCERIDES (test code = 2232) 121 MG/DL HDL CHOLESTEROL (test code = 2220) 50 MG/DL CALCULATED LDL CHOL (test co de = 2237) 136 MG/DL RISK RATIO LDL/HDL (test cod e = 2238) 2.72 RATIO Jose Wilson ClaytonCOMPREHENSIVE METABOLIC [id number] 00:00:00* Test Item Value Reference Range Interpretation Comme nts GLUCOSE (test code = 2217) 87 MG/DL BUN (test code = 2208) 11 MG/DL CREATININE (test code = 2214) 0.58 MG/DL eGFR AMER. (test cod e = 11526) 125 ML/MIN/1.73 eGFR NON- AMER. (test code = 33129) 107 ML/MIN/1.73 CALCULATED BUN/CREAT (test code = [...] code = 2219) 18 U/L Jose ArnoldLIPID [id number] 00:00:00* Test Item Value Reference Range Interpretation Comme nts CHOLESTEROL (test code = 2210) 210 MG/DL TRIGLYCERIDES (test code = 2232) 121 MG/DL HDL CHOLESTEROL (test code = 2220) 50 MG/DL CALCULATED LDL CHOL (test co de = 2237) 136 MG/DL RISK RATIO LDL/HDL (test cod e = 2238) 2.72 RATIO Jose ArnoldLIPID [id number] 00:00:00* Test Item Value Reference Range Interpretation Comme nts CHOLESTEROL (test code = 2210) 219 MG/DL TRIGLYCERIDES (test code = 2232) 176 MG/DL HDL CHOLESTEROL (test code = 2220) 53 MG/DL CALCULATED LDL CHOL (test co de = 2237) 131 MG/DL RISK RATIO LDL/HDL (test cod e = 2238) 2.47 RATIO Jose ArnoldCBC W/AUTO [id number] 00:00:00* Test Item Value Reference Range Interpretation [...] code = 1015) 223 K/UL Jose ArnoldHEMOGLOBIN [id number] 00:00:00* Test Item Value Reference Range Interpretation Comme [facility] HEMOGLOBIN A1c (test code = 06705) 5.5 % Jose [id number] 00:00:00* Test Item Value Reference Range Interpretation Comme [facility] TSH (test code = 2821) 1.8 UIU/ML Jose ArnoldCOMPREHENSIVE METABOLIC [id number] 00:00:00* Test Item Value Reference Range Interpretation Comme nts GLUCOSE (test code = 2217) 68 MG/DL BUN (test code = 2208) 11 MG/DL CREATININE (test code = 2214) 0.5 MG/DL eGFR AMER. (test cod e = 77974) 159 ML/MIN/1.73 eGFR NON- AMER. (test code = 71048) 131 ML/MIN/1.73 CALCULATED BUN/CREAT (test code = [...] (test code = 2219) 19 U/L Jose ArnoldLIPID [id number] 00:00:00* Test Item Value Reference Range Interpretation Comme [facility] CHOLESTEROL (test code = 2210) 219 MG/DL TRIGLYCERIDES (test code = 2232) 176 MG/DL HDL CHOLESTEROL (test code = 2220) 53 MG/DL CALCULATED LDL CHOL (test co de = 2237) 131 MG/DL RISK RATIO LDL/HDL (test cod e = 2238) 2.47 RATIO Jose ArnoldCBC W/AUTO [id number] 00:00:00* Test Item Value Reference Range Interpretation [...] code = 1015) 223 K/UL Jose ArnoldHEMOGLOBIN [id number] 00:00:00* Test Item Value Reference Range Interpretation Comme [facility] HEMOGLOBIN A1c (test code = 02189) 5.5 % Jose [id number] 00:00:00* Test Item Value Reference Range Interpretation Comme nts TSH (test code = 2821) 1.8 UIU/ML Jose ArnoldCOMPREHENSIVE METABOLIC [id number] 00:00:00* Test Item Value Reference Range Interpretation Comme nts GLUCOSE (test code = 2217) 68 MG/DL BUN (test code = 2208) 11 MG/DL CREATININE (test code = 2214) 0.5 MG/DL eGFR AMER. (test cod e = 09649) 159 ML/MIN/1.73 eGFR NON- AMER. (test code = 91669) 131 ML/MIN/1.73 CALCULATED BUN/CREAT (test code = [...] (test code = 2219) 19 U/L Jose ArnoldLIPID [id number] 00:00:00* Test Item Value Reference Range Interpretation Comme nts CHOLESTEROL (test code = 2210) 219 MG/DL TRIGLYCERIDES (test code = 2232) 176 MG/DL HDL CHOLESTEROL (test code = 2220) 53 MG/DL CALCULATED LDL CHOL (test co de = 2237) 131 MG/DL RISK RATIO LDL/HDL (test cod e = 2238) 2.47 RATIO Jose ArnoldCBC W/AUTO [id number] 00:00:00* Test Item Value Reference Range Interpretation [...] code = 1015) 223 K/UL Jose ArnoldHEMOGLOBIN [id number] 00:00:00* Test Item Value Reference Range Interpretation Comme nts HEMOGLOBIN A1c (test code = 37458) 5.5 % Jose [id number] 00:00:00* Test Item Value Reference Range Interpretation Comme nts TSH (test code = 2821) 1.8 UIU/ML Jose ArnoldCOMPREHENSIVE METABOLIC [id number] 00:00:00* Test Item Value Reference Range Interpretation Comme nts GLUCOSE (test code = 2217) 68 MG/DL BUN (test code = 2208) 11 MG/DL CREATININE (test code = 2214) 0.5 MG/DL eGFR AMER. (test cod e = 31332) 159 ML/MIN/1.73 eGFR NON- AMER. (test code = 32980) 131 ML/MIN/1.73 CALCULATED BUN/CREAT (test code = 2235) 22 RATIO SODIUM (test code = 2231) 139 MEQ/L POTASSIUM (test code = 2228) 4.5 MEQ/L CHLORIDE (test code = 2215) 105 MEQ/L CARBON DIOXIDE (test code = 2206) 25 MEQ/L CALCIUM (test code = 2209) 9.4 MG/DL PROTEIN, TOTAL (test code = 222) 7.0 G/DL ALBUMIN (test code = 220) 4.1 G/DL CALCULATED GLOBULIN (test code = 2240) 2.9 G/DL CALCULATED A/G RATIO (test code = 2234) 1.4 RATIO BILIRUBIN, TOTAL (test code = 2207) 0.6 MG/DL ALKALINE PHOSPHATASE (test code = 2204) 63 U/L SGOT (AST) (test code = 2218) 18 U/L SGPT (ALT) (test code = 2219) 19 U/L Jose ArnoldLIPID [id number] 00:00:00* Test Item Value Reference Range Interpretation Comme nts CHOLESTEROL (test code = 2210) 219 MG/DL TRIGLYCERIDES (test code = 2232) 176 MG/DL HDL CHOLESTEROL (test code = 2220) 53 MG/DL CALCULATED LDL CHOL (test co de = 223) 131 MG/DL RISK RATIO LDL/HDL (test cod e = 2238) 2.47 RATIO Jose ArnoldCBC W/AUTO [id number] 00:00:00* Test Item Value Reference Range Interpretation [...] code = 1015) 223 K/UL Jose ArnoldHEMOGLOBIN [id number] 00:00:00* Test Item Value Reference Range Interpretation Comme [facility] HEMOGLOBIN A1c (test code = 66883) 5.5 % Jose [id number] 00:00:00* Test Item Value Reference Range Interpretation Comme nts TSH (test code = 2821) 1.8 UIU/ML Jose ArnoldCOMPREHENSIVE METABOLIC [id number] 00:00:00* Test Item Value Reference Range Interpretation Comme nts GLUCOSE (test code = 2217) 68 MG/DL BUN (test code = 2208) 11 MG/DL CREATININE (test code = 2214) 0.5 MG/DL eGFR AMER. (test cod e = 09160) 159 ML/MIN/1.73 eGFR NON- AMER. (test code = 34843) 131 ML/MIN/1.73 CALCULATED BUN/CREAT (test code = [...] (test code = 2219) 19 U/L Jose ArnoldLIPID [id number] 00:00:00* Test Item Value Reference Range Interpretation Comme nts CHOLESTEROL (test code = 2210) 219 MG/DL TRIGLYCERIDES (test code = 2232) 176 MG/DL HDL CHOLESTEROL (test code = 2220) 53 MG/DL CALCULATED LDL CHOL (test co de = 2237) 131 MG/DL RISK RATIO LDL/HDL (test cod e = 2238) 2.47 RATIO Jose ArnoldCBC W/AUTO [id number] 00:00:00* Test Item Value Reference Range Interpretation [...] code = 1015) 223 K/UL Jose ArnoldHEMOGLOBIN [id number] 00:00:00* Test Item Value Reference Range Interpretation Comme [facility] HEMOGLOBIN A1c (test code = 97866) 5.5 % Jose [id number] 00:00:00* Test Item Value Reference Range Interpretation Comme criss TSH (test code = 2821) 1.8 UIU/ML Jose ArnoldCOMPREHENSIVE METABOLIC [id number] 00:00:00* Test Item Value Reference Range Interpretation Comme nts GLUCOSE (test code = 2217) 68 MG/DL BUN (test code = 2208) 11 MG/DL CREATININE (test code = 2214) 0.5 MG/DL eGFR AMER. (test cod e = 24356) 159 ML/MIN/1.73 eGFR NON- AMER. (test code = 87662) 131 ML/MIN/1.73 CALCULATED BUN/CREAT (test code = [...] = 2219) 19 U/L Jose Wilson ClaytonLIPID [id number] 00:00:00* Test Item Value Reference Range Interpretation Comme nts CHOLESTEROL (test code = 2210) 219 MG/DL TRIGLYCERIDES (test code = 2232) 176 MG/DL HDL CHOLESTEROL (test code = 2220) 53 MG/DL CALCULATED LDL CHOL (test co de = 2237) 131 MG/DL RISK RATIO LDL/HDL (test cod e = 2238) 2.47 RATIO Jose Wilson ClaytonCBC W/AUTO [id number] 00:00:00* Test Item Value Reference Range Interpretation [...] (test code = 1015) 223 K/UL Jose Steve ClaytonHEMOGLOBIN [id number] 00:00:00* Test Item Value Reference Range Interpretation Comme nts HEMOGLOBIN A1c (test code = 06758) 5.5 % Jose [id number] 00:00:00* Test Item Value Reference Range Interpretation Comme nts TSH (test code = 2821) 1.8 UIU/ML Jose ArnoldCOMPREHENSIVE METABOLIC [id number] 00:00:00* Test Item Value Reference Range Interpretation Comme nts GLUCOSE (test code = 2217) 68 MG/DL BUN (test code = 2208) 11 MG/DL CREATININE (test code = 2214) 0.5 MG/DL eGFR AMER. (test cod e = 70111) 159 ML/MIN/1.73 eGFR NON- AMER. (test code = 59251) 131 ML/MIN/1.73 CALCULATED BUN/CREAT (test code = [...] (test code = 2219) 19 U/L Jose ArnoldLIPID [id number] 00:00:00* Test Item Value Reference Range Interpretation Comme nts CHOLESTEROL (test code = 2210) 219 MG/DL TRIGLYCERIDES (test code = 2232) 176 MG/DL HDL CHOLESTEROL (test code = 2220) 53 MG/DL CALCULATED LDL CHOL (test co de = 2237) 131 MG/DL RISK RATIO LDL/HDL (test cod e = 2238) 2.47 RATIO Jose ArnoldCBC W/AUTO [id number] 00:00:00* Test Item Value Reference Range Interpretation [...] code = 1015) 223 K/UL Jose ArnoldHEMOGLOBIN [id number] 00:00:00* Test Item Value Reference Range Interpretation Comme criss HEMOGLOBIN A1c (test code = 54351) 5.5 % Jose [id number] 00:00:00* Test Item Value Reference Range Interpretation Comme nts TSH (test code = 2821) 1.8 UIU/ML Jose ArnoldCOMPREHENSIVE METABOLIC [id number] 00:00:00* Test Item Value Reference Range Interpretation Comme nts GLUCOSE (test code = 2217) 68 MG/DL BUN (test code = 2208) 11 MG/DL CREATININE (test code = 2214) 0.5 MG/DL eGFR AMER. (test cod e = 94474) 159 ML/MIN/1.73 eGFR NON- AMER. (test code = 84046) 131 ML/MIN/1.73 CALCULATED BUN/CREAT (test code = [...] (test code = 2219) 19 U/L Jose ArnoldLIPID [id number] 00:00:00* Test Item Value Reference Range Interpretation Comme nts CHOLESTEROL (test code = 2210) 219 MG/DL TRIGLYCERIDES (test code = 2232) 176 MG/DL HDL CHOLESTEROL (test code = 2220) 53 MG/DL CALCULATED LDL CHOL (test co de = 2237) 131 MG/DL RISK RATIO LDL/HDL (test cod e = 2238) 2.47 RATIO Jose ArnoldCBC W/AUTO [id number] 00:00:00* Test Item Value Reference Range Interpretation [...] code = 1015) 223 K/UL Jose ArnoldHEMOGLOBIN [id number] 00:00:00* Test Item Value Reference Range Interpretation Comme criss HEMOGLOBIN A1c (test code = 50958) 5.5 % Jose [id number] 00:00:00* Test Item Value Reference Range Interpretation Comme nts TSH (test code = 2821) 1.8 UIU/ML Jose ArnoldCOMPREHENSIVE METABOLIC [id number] 00:00:00* Test Item Value Reference Range Interpretation Comme nts GLUCOSE (test code = 2217) 68 MG/DL BUN (test code = 2208) 11 MG/DL CREATININE (test code = 2214) 0.5 MG/DL eGFR AMER. (test cod e = 34988) 159 ML/MIN/1.73 eGFR NON- AMER. (test code = 65907) 131 ML/MIN/1.73 CALCULATED BUN/CREAT (test code = [...] (ALT) (test code = 221) 19 U/L Jose ArnoldDIGITAL MAMMOGRAM, [id number] 19:55:00 *.*.*.*.*.*.*.*.*.*.*.*.*.*FINAL*.*.*.*.*.*.*.*.*.*.*.*.*.*.*Computer aided detection (CAD) utilized. No comparison images were available at the time of this reading. ? Bilateral Breast Findings:The breasts are heterogeneously dense (51% - 75% fibroglandular). This may lower the sensitivity of mammography. ?No significant masses, calcifications or other abnormalities are seen. PEDRO SAEED MD ?Personally interpreted by: LUPE SPIVEY MD /Signed/ LUPE SPIVEY [facility]CH[facility] Notes Date/Time Note Provider Source Jose Kenny [facility]2024-12-17 00:00:00 Jose Kenny [facility]2024-11-29 00:00:00 Jose Man [facility]2024-10-30 00:00:00 Jose FMan [facility]2024-09-30 [facility]2024-08-15 00:00:00 [facility]2024-05-07 00:00:00 [facility]"
--- NOTE | 2024-07-08 10:53 | RAD REPORT ---
Exam:Ankle Left 3 View HISTORY: left ankle pain FINDINGS: No fracture or dislocation is seen. Soft tissue swelling. Small osteophyte
[2024-07-08] MEDS ORDERED: KETOROLAC 30 MG/ML INJ ONE (12:06)
--- NOTE | 2024-07-08 12:31 | RAD REPORT ---
EXAM:Extremity Venous Uni Ltd HISTORY: Left leg swelling TECHNIQUE: Sonographic evaluation left lower extremity performed.Grayscale, color and spectral analys is performed on all vessels COMPARISON: None. FINDINGS: Left common femoral, superficial femoral, greater saphenous, popliteal and posterior tibial veins are compressible and demonstrate augmentation. Doppler demonstrates good flow. IMPRESSION: No evidence of deep venous thrombosis involving the left lower extremity.
--- NOTE | 2024-07-08 13:32 | EDPHYS ---
Physician Documentation [facility] [place], [place] Name: Nat Reilly Age: 58 yrs Sex: Female : 1965 Arrival Date: 07/08/2024 Time: 09:33 Bed Ultrasound Private MD: ED Physician Janice Clemente HPI: 07/08 11:27 This 58 yrs old Female presents to ER via Wheelchair with complaints of Foot sp3 Pain. 11:27 50-year-old female with history of anxiety and hypertension presents with right foot sp3 and calf pain for the last 2 to 3 days. She denies any direct trauma. She also denies fever, rash, bleeding, chest pain, shortness breath, abdominal pain, other joint pain, prior history of gout, or any other signs or symptoms on ROS at this time.. Historical: - Allergies: 10:09 Amoxicillin; jl7 10:09 Hydrocodone-Acetaminophen; jl7 10:09 Latex; jl7 - PMHx: 10:09 Anxiety; Hypertension; jl7 - PSHx: 10:09 section; Cholecystectomy; jl7 - Immunization history:: Adult Immunizations unknown. - Infectious Disease History:: Denies. - Social history:: Smoking status: Patient denies any tobacco usage or history of. ROS: 11:38 Constitutional: Negative for fever, chills, and weight loss, Eyes: Negative for injury, sp3 pain, redness, and discharge, Neck: Negative for injury, pain, and swelling, Cardiovascular: Negative for chest pain, palpitations, and edema, Respiratory: Negative for shortness of breath, cough, wheezing, and pleuritic chest pain, Abdomen/GI: Negative for abdominal pain, nausea, vomiting, diarrhea, and constipation, Back: Negative for injury and pain, Skin: Negative for injury, rash, and discoloration, Neuro: Negative for headache, weakness, numbness, tingling, and seizure, Psych: Negative for depression, anxiety, suicide ideation, homicidal ideation, and hallucinations, Allergy/Immunology: Negative for hives, rash, and allergies, Endocrine: Negative for neck swelling, polydipsia, polyuria, polyphagia, and marked weight changes, 11:38 All other systems are negative, Exam: 11:38 Constitutional: This is a well developed, well nourished patient who is awake, alert, sp3 and in no acute distress. Head/Face: Normocephalic, atraumatic. Eyes: Pupils equal round and reactive to light, extra-ocular motions intact. Lids and lashes normal. Conjunctiva and sclera are non-icteric and not injected. Cornea within normal limits. Periorbital areas with no swelling, redness, or edema. Neck: Trachea midline, no thyromegaly or masses palpated, and no cervical lymphadenopathy. Supple, full range of motion without nuchal rigidity, or vertebral point tenderness. No Meningismus. Chest/axilla: Normal chest wall appearance and motion. Nontender with no deformity. No lesions are appreciated. Cardiovascular: Regular rate and rhythm with a normal S1 and S2. No gallops, murmurs, or rubs. Normal PMI, no JVD. No pulse deficits. Respiratory: Lungs have equal breath sounds bilaterally, clear to auscultation and percussion. No rales, rhonchi or wheezes noted. No increased work of breathing, no retractions or nasal flaring. Abdomen/GI: Soft, non-tender, with normal bowel sounds. No distension or tympany. No guarding or rebound. No evidence of tenderness throughout. Back: No spinal tenderness. No costovertebral tenderness. Full range of motion. Skin: Warm, dry with normal turgor. Normal color with no rashes, no lesions, and no evidence of cellulitis. Neuro: Awake and alert, GCS 15, oriented to person, place, time, and situation. Cranial nerves II-XII grossly intact. Motor strength 5/5 in all extremities. Sensory grossly intact. Cerebellar exam normal. Normal gait. Psych: Awake, alert, with orientation to person, place and time. Behavior, mood, and affect are within normal limits. 11:38 Musculoskeletal/extremity: Joint swelling at the ankle extending proximally with pain at the calf as well. Nothing beyond the knee with normal knee exam. Neurovascular exam in the foot is normal.. Vital Signs: 10:08 BP 157 / 78; Pulse 75; Resp 17; Temp 97; Pulse Ox 98% ; Weight 133.36 kg; Height 5 ft. jl7 1 in. ; Pain 10/10; 13:47 BP 152 / 74; Pulse 78; Resp 16; Temp 98.1; Pulse Ox 100% ; me1 10:08 Body Mass Index 55.55 (133.36 kg, 154.94 cm) jl7 10:08 Pain Scale: Adult jl7 MDM: 10:52 Medical Screening Exam initiated [facility] 11:39 Data reviewed: vital signs, nurses notes, lab test result(s), radiologic studies. ED sp3 course: 58-year-old female with left ankle and calf pain. Differential diagnosis includes muscle strain, gout, DVT, arthritis. X-ray of the ankle is normal. Ultrasound of the calf left lower extremity for DVT pending. Will treat with ketorolac IM and uric acid level also pending.. 13:31 ED course: Full workup negative. Will discharge on diclofenac and follow-up with PCP.. sp3 07/08 11:26 Order name: Uric Acid; Complete Time: 13:30 sp3 07/08 10:11 Order name: Ankle Left 3 View XRAY; Complete Time: 11:17 jl7 07/08 11:26 Order name: US Extremity Venous Unilateral Ltd; Complete Time: 12:43 sp3 Administered Medications: 12:36 Drug: Ketorolac IM 30 mg IM once Route: IM; Site: left deltoid; me1 13:37 Follow up: Response: No adverse reaction; Pain is decreased me1 Disposition Summary: 07/08/24 13:32 Discharge Ordered Notes: Location: Home sp3 Condition: Stable sp3 Diagnosis - Ankle and leg pain sp3 Followup: sp3 - With: Private Physician - When: Upon discharge from the Emergency Department - Reason: Recheck today's complaints, Continuance of care Discharge Instructions: - Discharge Summary Sheet sp3 - Leg Cramps sp3 Forms: - Medication Reconciliation Form sp3 - Antibiotic Education sp3 - Prescription Opioid Use sp3 - Patient Portal Instructions sp3 - Leadership Thank You Letter sp3 Prescriptions: - Diclofenac Sodium 75 mg Oral Tablet Sustained Release - take 1 tablet ORAL route 2 times per day; 30 tablet; Refills: 0, Product sp3 Selection Permitted Signatures: Dispatcher [employer] EDMS Diego Enriquez MD MD cha Leal, Jahala RN RN jl7 Janice Clemente MD MD sp3 Xiao Bartholomew, RN RN me1 Corrections: (The following items were deleted from the chart) 10:11 10:11 Ankle Left 3 View+RAD.RAD.BRZ ordered. EDMS EDMS
--- NOTE | 2024-07-08 13:32 | ER ---
Nurse's Notes [facility] Name: Nat Reilly Age: 58 yrs Sex: Female : 1965 Arrival Date: 07/08/2024 Time: 09:33 Bed Ultrasound Private MD: Diagnosis: Ankle and leg pain Presentation: 07/08 10:08 Chief complaint: Patient states: left ankle pain x 3 days, radiates up to knee, denies jl7 trauma. Coronavirus screen: At this time, the client does not indicate any symptoms associated with coronavirus-19. Ebola Screen: No symptoms or risks identified at this time. Initial Sepsis Screen: Does the patient meet any 2 criteria? No. Patient's initial sepsis screen is negative. Does the patient have a suspected source of infection? No. Patient's initial sepsis screen is negative. Risk Assessment: Do you want to hurt yourself or someone else? Patient reports no desire to harm self or others. Onset of symptoms was July 05, 2024. 10:08 Method Of Arrival: Wheelchair jl7 10:08 Acuity: KIRT 4 jl7 Triage Assessment: 10:09 General: Appears in no apparent distress. comfortable, Behavior is calm, cooperative, jl7 appropriate for age, crying. Pain: Complains of pain in left leg Pain currently is 10 out of 10 on a pain scale. Historical: - Allergies: 10:09 Amoxicillin; jl7 10:09 Hydrocodone-Acetaminophen; jl7 10:09 Latex; jl7 - PMHx: 10:09 Anxiety; Hypertension; jl7 - PSHx: 10:09 section; Cholecystectomy; jl7 - Immunization history:: Adult Immunizations unknown. - Infectious Disease History:: Denies. - Social history:: Smoking status: Patient denies any tobacco usage or history of. Screenin:05 [facility] ED Fall Risk Assessment (Adult) History of falling in the last 3 months, me1 including since admission No falls in past 3 months (0 pts) Confusion or Disorientation No (0 pts) Intoxicated or Sedated No (0 pts) Impaired Gait Yes (1 pt) Mobility Assist Device Used No (0 pt) Altered Elimination No (0 pt) Score/Fall Risk Level 0 - 2 = Low Risk. Abuse screen: Denies threats or abuse. Nutritional screening: No deficits noted. Tuberculosis screening: No symptoms or risk factors identified. Assessment: 12:05 General: Appears uncomfortable, obese, well groomed, well developed, Behavior is calm, me1 cooperative, appropriate for age. Pain: Complains of pain in left leg Pain currently is 10 out of 10 on a pain scale. Quality of pain is described as sharp, shooting, Pain began 1 day ago. Is continuous. Neuro: Level of Consciousness is awake, alert, obeys commands, Oriented to person, place, time, situation, Appropriate for age. Cardiovascular: Patient's skin is warm and dry. Respiratory: Airway is patent Respiratory effort is even, unlabored, Respiratory pattern is regular, symmetrical. GI: No signs and/or symptoms were reported involving the gastrointestinal system. : No signs and/or symptoms were reported regarding the genitourinary system. EENT: No signs and/or symptoms were reported regarding the EENT system. Derm: Skin is intact, is healthy with good turgor, Skin is pink, warm \T\ dry. Musculoskeletal: Reports pain in left leg since yesterday. Vital Signs: 10:08 BP 157 / 78; Pulse 75; Resp 17; Temp 97; Pulse Ox 98% ; Weight 133.36 kg; Height 5 ft. jl7 1 in. ; Pain 10/10; 13:47 BP 152 / 74; Pulse 78; Resp 16; Temp 98.1; Pulse Ox 100% ; me1 10:08 Body Mass Index 55.55 (133.36 kg, 154.94 cm) jl7 10:08 Pain Scale: Adult jl7 ED Course: 09:37 Patient arrived in ED. al6 09:41 Janice Clemente MD is Attending Physician. sp3 10:09 Triage completed. jl7 10:09 Arm band placed on right wrist. jl7 10:42 Ankle Left 3 View XRAY In Process Unspecified. EDMS 12:04 Xiao Bartholomew, ANAND is Primary Nurse. me1 12:05 Patient has correct armband on for positive identification. Bed in low position. Call me1 light in reach. Side rails up X 1. Provided Education on: POC. Verbalized understanding.. Client placed on continuous cardiac and pulse oximetry monitoring. NIBP monitoring applied. Pulse ox on. NIBP on. 12:05 No provider procedures requiring assistance completed. me1 12:16 US Extremity Venous Unilateral Ltd In Process Unspecified. EDMS 13:02 Uric Acid Sent. me1 13:02 Initial lab(s) drawn, by me, sent to lab. Inserted saline lock: 22 gauge in left me1 forearm, using aseptic technique. 13:47 IV discontinued, intact, bleeding controlled, No redness/swelling at site. Pressure me1 dressing applied. Administered Medications: 12:36 Drug: Ketorolac IM 30 mg IM once Route: IM; Site: left deltoid; me1 13:37 Follow up: Response: No adverse reaction; Pain is decreased me1 Medication: 12:05 VIS not applicable for this client. me1 Outcome: 13:32 Discharge ordered by . sp3 13:47 Discharged to home via wheelchair, me1 13:47 Condition: stable 13:47 Discharge instructions given to patient, Instructed on discharge instructions, follow up and referral plans. medication usage, Demonstrated understanding of instructions, follow-up care, medications, Prescriptions given X 1, 13:48 Patient left the ED. me1 Signatures: Dispatcher [employer] Herson Hudson RN RN jl7 Janice Clemente MD MD sp3 Xiao Bartholomew RN RN me1 [place] Conley al6 Corrections: (The following items were deleted from the chart) 12:04 10:08 Chief complaint: Patient states: left ankle pain x 3 days, radiates up to knee, me1 denies trauma jl7 13:37 10:08 Chief complaint: Patient states: left ankle pain x 3 days, radiates up to knee, me1 denies trauma me1
[2024-07-08 14:15] VITALS: BP 152/74; TEMP 98.1; O2SAT 100
== END 2024-07-08 13:48 | disposition home or self-care (01) ==
LOC: ER 09:33
DX: M25.571 Pain in right ankle and joints of right foot (principal)
CPT/HCPCS: 36415; 84550; 93971; 96372; 99284